=== PATIENT | female | born 1945 | race Caucasian/White ===

== ENCOUNTER 2017-08-28 10:35 | Inpatient (IN) | payer MEDICARE, OTHER, SELFPAY ==
[2017-08-20 10:20] VITALS: BP 146/55; PULSE 103; RESP 16; TEMP 36.4; O2SAT 96; BMI 39.1
[2017-08-20 11:23] LABS: Absolute Lymphocyte Count 2.33 X10^3/ul (0.83-4.51); Absolute Neutrophil Count 4.1 X10^3/uL (2.0-7.7); Basophil# 0.06 X10^3/uL; Basophil% 0.8 % (0-1); Eosinophil# 0.28 X10^3/uL; Eosinophils% 3.8 % (0-5); Hematocrit 34.3 % (37-47); Hemoglobin 10.8 g/dl (12.0-15.0); Lymphocyte # 2.33 X10^3/ul (4.0); Lymphocyte % 31.3 % (19-41); Mean Corp Hgb Conc 31.5 g/gl (32-36); Mean Corpuscular Hgb 24.8 pg (27.0-32.0); Mean Corpuscular Volume 78.7 fL (81-99); Mean Platelet Vol. 9.6 fl (6.2-12.0); Monocyte# 0.65 X10^3/uL; Monocyte% 8.7 % (0-10); Neutrophil # 4.11 X10^3/uL (2.7-7.7); Neutrophil % 55.3 % (47-70); Platelet Count 380 K/mm3 (150-450); RBC Distribution Width CV 16.9 % (11.6-14.6); RBC Distribution Width SD 47.5 fl (35.1-43.9); Red Blood Count 4.36 M/mm3 (4.2-5.4); White Blood Count 7.4 K/mm3 (4.4-11.0)
[2017-08-20 11:27] LABS: POSITIVE COUNT NO; POSITIVE DIFFERENTIAL NO; POSITIVE MORPHOLOGY NO
--- NOTE | 2017-08-20 11:42 | SDCEKG_ITS ---
Test Reason : Blood Pressure : / mmHG Vent. Rate : 092 BPM Atrial Rate : 092 BPM P-R Int : 166 ms QRS Dur : 072 ms QT Int : 362 ms P-R-T Axes : 055 018 078 degrees QTc Int : 447 ms Sinus rhythm with occasional Premature ventricular complexes and Premature atrial complexes Increased R/S ratio in V1, consider early transition or posterior infarct Abnormal ECG Confirmed by BIJU LIU ([id number]), auto electrician CHARLES TAMAYO ([id number]) on 08/26/2017 1:34:33 PM Referred By: Confirmed By:BIJU LIU
[2017-08-20 11:57] LABS: Anion Gap 10 (5-15); BUN 17 mg/dL (7-18); BUN/Creat Ratio 25.6 RATIO (10-20); Calcium,Total 9.3 mg/dL (8.5-10.1); Chloride 98 mmol/L (98-107); Creatinine, Serum 0.66 mg/dL (0.55-1.02); EST Glomerular Filtration Rate 94 mL/min (>60); Est Glom Filt Rate - Afr Amer 113 mL/min (>60); Estimated Creatinine Clearance 41.99 ml/min; Glucose 177 mg/dL (70-110); Potassium 4.3 mmol/L (3.5-5.1); Sodium Level 139 mmol/L (136-145)
[2017-08-28] VITALS (11 sets, daily range): BP systolic 97–149; BP diastolic 53–80; PULSE 80–96; RESP 16–18; TEMP 36.2–36.6; O2SAT 95–99; BMI 39.1
[2017-08-28] MEDS: Celecoxib 200 MG Capsule 400 MG PO (11:20)
[2017-08-28] MEDS: Acetaminophen 500 MG Tablet 1000 MG PO ×2 (11:20→22:55)
[2017-08-28] MEDS: oxyCODONE HCl Cr 10 MG Tablet PO (11:20)
[2017-08-28 11:30] LABS: Bedside Glucose 185 mg/dL (70-110)
[2017-08-28] MEDS: Lactated Ringers 1,000 ML 999 ML IV (11:35)
[2017-08-28] MEDS: Clindamycin 600 MG/50 ML BAG 100 MG IV (12:25)
--- NOTE | 2017-08-28 14:51 | RAD_ITS ---
STUDY: X-RAY - PELVIS AND LEFT HIP REASON FOR EXAM: Female, 71 years old. Postop left hip revision TECHNIQUE: Radiological exam, hip, unilateral, with pelvis when performed; 2 or 3 views. COMPARISON: Prior x-rays of the pelvis and left hip on May 24, 2017. FINDINGS: There is a non-specific bowel gas pattern. There is sclerosis of the bilateral sacroiliac joints consistent with osteoarthritis. Normal bilateral superior and inferior pubic rami. There are degenerative changes of the pubic symphysis with articular narrowing and sclerosis. Normal bilateral ischial tuberosities. The patient is status post revision arthroplasty of the left hip with a long femoral stem. Cerclage wires are noted proximally. The components are aligned anatomically. No post surgical complications are seen. Post surgical changes are noted in the soft tissues. The skin ramez have been removed The patient is status post prior arthroplasty of the right hip. The components are also aligned anatomically and no postsurgical complications are seen. RAD/Hip Min 2 Views (Portable) IMPRESSION: Status post left hip revision arthroplasty, uncomplicated. Status post old right hip arthroplasty, uncomplicated Electronically Signed: Abdelrahman Lantigua MD, FACR at 15:36 EST , Service support ,
[2017-08-28 15:31] LABS: Bedside Glucose 232 mg/dL (70-110)
--- NOTE | 2017-08-28 15:51 | PCM.OPRPT ---
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 Surgery/Procedure Performed:: Left hip femoral component revision Description of Surgical Findings:: Stable hip with equal leg lengths aluminum molder: Willie Lozano Type of Anesthesia:: Spinal Anesthesiologist: Marko Jane Special Medications: 600 mg clindamycin, 1 g TXA at incision, 1 g TXA closure, 10 mg Decadron, joint cocktail (5 mg Duramorph, 30 mL of 0.5% Ropivicaine, 1000 units of epinephrine, 30 mg of Toradol) Specimen's removed: 3 separate specimens were sent to microbiology Estimated Blood Loss (mL): 650 Fluids Replaced: 1400 mL crystalloid Description of Procedure: Findings: Adequate reduction with stability of the hip and equal leg lengths measured intraoperatively. Components used: 1. Ciara orthodoxy modular conical stem 1 55 x 15 2. Menlo duration modular cone body 19 mm +0 3. Ciara X3 polyethylene MDM liner, 38 mm 4. Menlo cobalt chromium 22.2 mm, 0 mm neck femoral head Brief history operative indications: 89-year-old female presented to my office after revision for ORIF periprosthetic fracture. She had subsidence of her metaphyseal fitting implant. The fracture was healing appropriately. When she started weightbearing she started to notice increased leg length discrepancy. Radiographs showed subsidence of the stem. Risks and benefits were discussed with the patient which included but were not limited to blood loss, DVTs, PEs, infection, neurovascular damage, and dislocation. In light of all this patient did agree to proceed with a revision total hip arthroplasty. Procedure: On the date of procedure the patient's L hip was marked in the preoperative area. Patient was then taken back to the operating room where anesthesia assumed control of the C-spine and airway and administered anesthetic. Patient was transferred to the operating table and placed in the lateral decubitus position with the affected hip up. The patient was secured in the bed with the lateral positioners and leg lengths were checked. The L lower extremity was then prepped out in a sterile fashion using chlorhexidine while the surgeon scrubbed. Upon reentering the room the L lower extremity was draped in the standard orthopedic fashion and the incision was marked. A timeout was called and everyone agreed upon the side, the site, the procedure be performed, antibiotics given, and patient's identity. At this time incision was made through skin, subcutaneous tissue, and fat down to fascia. The fascia was then incised and a Charley retractor was placed. The soft tissue was then cleared from the posterior lateral edge of the greater trochanter. Posterior structures were then taken down until we can identify the implant. It was clearly subsided at the time of exposure. Synovectomy was performed and synovium was sent for culture. Once the appropriate synovectomy was performed in the proximal femur was released were able to dislocate the hip. The femoral component was easily extracted. Once this is extracted curettes were used to remove the membrane from in the femoral canal. Part of this membrane was sent for culture. Acetabulum was then exposed and remainder of the synovectomy was performed. We then directed our attention to the femur. Femoral canal was reamed to 15 mm 155 mm conical stem. Once this was performed wound was copiously irrigated out with 6 L normal saline. Once we had irrigated out the wound a final conical implant was opened and impacted into place. We then reamed to a 19 mm cone body. Trial cone body was assembled and a neutral head was placed. Hip was reduced. Leg lengths appeared equal and hip was stable. Hip was then dislocated. Final cone body 19 mm was opened and Slater taper was engaged and impacted into place. Final screw was tightened into place. MDM head was assembled on the back table and MDM head was impacted into place after trunnion was appropriately cleaned. Hip was then reduced with the assistance of my physician drug safety assistant point traction and internal rotation. Once hip was reduced leg lengths appeared equal and the hip was stable at 90? at 45? internal rotation. The wound was then copiously irrigated with normal saline once more, and hemostasis was obtained. Closure was then done using #1 Vicryl to close the fascia. A 2-0 Vicryl interrupted sutures were used to close the subcutaneous skin. Skin ramez were used for final skin closure. A sterile dressing was placed. Patient was awakened by anesthesia and transferred to the [facility]. Patient was then transferred to the PACU for recovery. Postoperative plan: Patient will get 24 hours postop antibiotics. Patient will get in-house physical therapy and will be weight-bear as tolerated. Patient will follow up in office in 2 weeks for a wound check and x-rays. During the course of the procedure the physician drug safety assistant played a vital role. His intimate knowledge of my steps in the procedure aided in safe and expedient completion of the procedure. The PA played a vital rolls in positioning particularly in obtaining the appropriate decubitus position. The PA was also vital in the retraction of soft tissues during the exposure and especially the femoral work as this is a vital part of the procedure to prevent complications and fractures. The PA was also vital and protecting soft tissues during times of bony cuts and reaming. He also played a vital role in closure with my direct supervision. The PA was also important during reduction and dislocation of the joint and trials intraoperatively. Grafts/Implants Used: Menlo - Complications none - Admit VTE Documentation VTE Present on Admission: No VTE Mechan Device Prophylaxis: SCD's, Thigh High TESSA Hose VTE Pharm Prophylaxis ordered?: Yes
--- NOTE | 2017-08-28 16:00 | OP.PCM_ITS ---
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 Surgery/Procedure Performed:: Left hip femoral component revision Description of Surgical Findings:: Stable hip with equal leg lengths program administrator: Willie Lozano Type of Anesthesia:: Spinal Anesthesiologist: Marko Jane Special Medications: 600 mg clindamycin, 1 g TXA at incision, 1 g TXA closure, 10 mg Decadron, joint cocktail (5 mg Duramorph, 30 mL of 0.5% Ropivicaine, 1000 units of epinephrine, 30 mg of Toradol) Specimen's removed: 3 separate specimens were sent to microbiology Estimated Blood Loss (mL): 650 Fluids Replaced: 1400 mL crystalloid Description of Procedure: Findings: Adequate reduction with stability of the hip and equal leg lengths measured intraoperatively. Components used: 1. Ciara zoroastrian modular conical stem 1 55 x 15 2. Citra duration modular cone body 19 mm +0 3. Ciara X3 polyethylene MDM liner, 38 mm 4. Citra cobalt chromium 22.2 mm, 0 mm neck femoral head Brief history operative indications: 89-year-old female presented to my office after revision for ORIF periprosthetic fracture. She had subsidence of her metaphyseal fitting implant. The fracture was healing appropriately. When she started weightbearing she started to notice increased leg length discrepancy. Radiographs showed subsidence of the stem. Risks and benefits were discussed with the patient which included but were not limited to blood loss, DVTs, PEs, infection, neurovascular damage, and dislocation. In light of all this patient did agree to proceed with a revision total hip arthroplasty. Procedure: On the date of procedure the patient's L hip was marked in the preoperative area. Patient was then taken back to the operating room where anesthesia assumed control of the C-spine and airway and administered anesthetic. Patient was transferred to the operating table and placed in the lateral decubitus position with the affected hip up. The patient was secured in the bed with the lateral positioners and leg lengths were checked. The L lower extremity was then prepped out in a sterile fashion using chlorhexidine while the surgeon scrubbed. Upon reentering the room the L lower extremity was draped in the standard orthopedic fashion and the incision was marked. A timeout was called and everyone agreed upon the side, the site, the procedure be performed, antibiotics given, and patient's identity. At this time incision was made through skin, subcutaneous tissue, and fat down to fascia. The fascia was then incised and a Charley retractor was placed. The soft tissue was then cleared from the posterior lateral edge of the greater trochanter. Posterior structures were then taken down until we can identify the implant. It was clearly subsided at the time of exposure. Synovectomy was performed and synovium was sent for culture. Once the appropriate synovectomy was performed in the proximal femur was released were able to dislocate the hip. The femoral component was easily extracted. Once this is extracted curettes were used to remove the membrane from in the femoral canal. Part of this membrane was sent for culture. Acetabulum was then exposed and remainder of the synovectomy was performed. We then directed our attention to the femur. Femoral canal was reamed to 15 mm 155 mm conical stem. Once this was performed wound was copiously irrigated out with 6 L normal saline. Once we had irrigated out the wound a final conical implant was opened and impacted into place. We then reamed to a 19 mm cone body. Trial cone body was assembled and a neutral head was placed. Hip was reduced. Leg lengths appeared equal and hip was stable. Hip was then dislocated. Final cone body 19 mm was opened and Slater taper was engaged and impacted into place. Final screw was tightened into place. MDM head was assembled on the back table and MDM head was impacted into place after trunnion was appropriately cleaned. Hip was then reduced with the assistance of my physician butcher assistant point traction and internal rotation. Once hip was reduced leg lengths appeared equal and the hip was stable at 90? at 45? internal rotation. The wound was then copiously irrigated with normal saline once more, and hemostasis was obtained. Closure was then done using #1 Vicryl to close the fascia. A 2-0 Vicryl interrupted sutures were used to close the subcutaneous skin. Skin ramez were used for final skin closure. A sterile dressing was placed. Patient was awakened by anesthesia and transferred to the [facility]. Patient was then transferred to the PACU for recovery. Postoperative plan: Patient will get 24 hours postop antibiotics. Patient will get in-house physical therapy and will be weight-bear as tolerated. Patient will follow up in office in 2 weeks for a wound check and x-rays. During the course of the procedure the physician butcher assistant played a vital role. His intimate knowledge of my steps in the procedure aided in safe and expedient completion of the procedure. The PA played a vital rolls in positioning particularly in obtaining the appropriate decubitus position. The PA was also vital in the retraction of soft tissues during the exposure and especially the femoral work as this is a vital part of the procedure to prevent complications and fractures. The PA was also vital and protecting soft tissues during times of bony cuts and reaming. He also played a vital role in closure with my direct supervision. The PA was also important during reduction and dislocation of the joint and trials intraoperatively. Grafts/Implants Used: Citra - Complications none - Admit VTE Documentation VTE Present on Admission: No VTE Mechan Device Prophylaxis: SCD's, Thigh High TESSA Hose VTE Pharm Prophylaxis ordered?: Yes
[2017-08-28] MEDS: Lactated Ringers 1,000 ML 125 ML IV (16:15)
[2017-08-28] MEDS: Ferrous Sulfate 325 MG Tablet PO (17:23)
[2017-08-28] MEDS: Folic Acid 1 MG Tablet PO (17:23)
[2017-08-28] MEDS: Glucerna Shake 120 ML LIQUID PO (17:23)
[2017-08-28] MEDS: Aspirin 325 MG Tablet PO (17:23)
[2017-08-28] MEDS: Doxycycline 100 MG CAPSULE PO (22:55)
[2017-08-28] MEDS: Senna/Docusate Sodium 1 Tablet 2 TABLET PO (22:55)
[2017-08-28] MEDS: Isosorbide DN 10 MG Tablet PO (22:55)
[2017-08-28] MEDS: oxyCODONE 5 MG Tablet PO (23:00)
[2017-08-28 23:16] LABS: Bedside Glucose 303 mg/dL (70-110)
[2017-08-29] MEDS: Lactated Ringers 1,000 ML 125 ML IV (00:29)
[2017-08-29 02:12] VITALS: BP 129/73; PULSE 88; RESP 18; TEMP 36.2; O2SAT 95
[2017-08-29] MEDS: Acetaminophen 500 MG Tablet 1000 MG PO ×3 (06:19→21:43)
[2017-08-29] MEDS: Isosorbide DN 10 MG Tablet PO ×3 (06:20→21:43)
[2017-08-29 07:10] LABS: Hematocrit 26.3 % (37-47); Hemoglobin 8.2 g/dl (12.0-15.0); Mean Corp Hgb Conc 31.2 g/gl (32-36); Mean Corpuscular Hgb 24.4 pg (27.0-32.0); Mean Corpuscular Volume 78.3 fL (81-99); Mean Platelet Vol. 10.7 fl (6.2-12.0); Platelet Count 292 K/mm3 (150-450); RBC Distribution Width CV 17.1 % (11.6-14.6); RBC Distribution Width SD 46.7 fl (35.1-43.9); Red Blood Count 3.36 M/mm3 (4.2-5.4); White Blood Count 11.4 K/mm3 (4.4-11.0)
[2017-08-29 07:16] LABS: Bedside Glucose 236 mg/dL (70-110)
[2017-08-29 07:20] LABS: Scan Indicated on CBC? Y/N NO
[2017-08-29 07:21] LABS: Anion Gap 10 (5-15); BUN 18 mg/dL (7-18); BUN/Creat Ratio 27.6 RATIO (10-20); Calcium,Total 8.3 mg/dL (8.5-10.1); Chloride 101 mmol/L (98-107); Creatinine, Serum 0.65 mg/dL (0.55-1.02); EST Glomerular Filtration Rate 95 mL/min (>60); Est Glom Filt Rate - Afr Amer 115 mL/min (>60); Estimated Creatinine Clearance 41.99 ml/min; Glucose 253 mg/dL (70-110); Potassium 4.7 mmol/L (3.5-5.1); Sodium Level 137 mmol/L (136-145)
--- NOTE | 2017-08-29 07:36 | PN.ORTHO_ITS ---
Subjective: The patient was sitting in bed upon examination. Patient denies any chest pain , shortness of breath, dizziness, lightheadedness, nausea or vomiting, or calf pain. Pain is controlled on medications. No adverse overnight events. Overall patient is doing well, she is comfortable. Objective: Vital signs stable and afebrile. Patient is able to plantarflex and dorsiflex actively. Sensation is intact to light touch to saphenous, sural, superficial and deep peroneal, and tibial distribution. Dressing is clean dry and intact. Negative Homans bilaterally, negative signs and symptoms of DVT. - Physical Exam General: Alert, Oriented x3, Cooperative, No apparent distress Vital Signs Temp Pulse Resp BP Pulse Ox 97.1 F 88 18 129/73 95 08/29/17 02:12 08/29/17 02:12 08/29/17 02:12 08/29/17 02:12 08/29/17 02:12 Oxygen Delivery Method Room Air Weight: 97.1 kg Body Mass Index (BMI) 39.1 Finger Stick Blood Glucose 232 Intake and Output for Last 24 Hours 08/27/17 08/28/17 08/29/17 23:59 23:59 23:59 Intake Total 2053 1882 Output Total 0 2050 Balance 2054 -168 Microbiology Past 72 Hours 08/28/17 Unknown Gram Stain - Final Tissue - Hip 08/28/17 Unknown Gram Stain - Final Tissue - Hip 08/28/17 Unknown Gram Stain - Final Tissue - Hip Laboratory Tests Past 24 Hrs 08/29/17 08/29/17 05:57 05:57 WBC 11.4 H RBC 3.36 L Hgb 8.2 L Hct 26.3 L MCV 78.3 L MCH 24.4 L MCHC 31.2 L RDW 17.1 H RDW Differential 46.7 H Plt Count 292 MPV 10.7 Sodium 137 Potassium 4.7 Chloride 101 Carbon Dioxide 26.0 Anion Gap 10 BUN 18 Creatinine 0.65 Estim Creat Clear Calc 41.99 Est GFR (MDRD) Af Amer 115 Est GFR (MDRD) Non-Af 95 BUN/Creatinine Ratio 27.6 H Glucose 253 H Calcium 8.3 L POC Glucose 08/29/17 08/28/17 08/28/17 07:09 22:52 15:22 POC Glucose 236 H 303 H 232 H 08/28/17 11:09 POC Glucose 185 H Assessment/Plan 1. S/P left hip femoral component revision POD #1 2. Continue Pain Medications: Tylenol and OxyIR 3. DVT Prophylaxis: Aspirin 325 mg twice daily 4. PT/OT: Weightbearing as tolerated 5. H & H: 8.2/26.3, asymptomatic 6. Leukocytosis: Currently 11.4, afebrile. Patient did receive Decadron intraoperatively 7. Continue antibiotics while following cultures, currently on doxycycline. 8. Encouraged Incentive Spirometry 9. Disposition: Patient wishes to go to fourth floor rehab. Will have case management involved for proper placement.
[2017-08-29] MEDS: Pantoprazole Sodium 20 MG Tablet PO (07:59)
[2017-08-29] MEDS: Senna/Docusate Sodium 1 Tablet 2 TABLET PO ×2 (07:59→21:44)
[2017-08-29] MEDS: Aspirin 325 MG Tablet PO ×2 (07:59→17:06)
[2017-08-29] MEDS: Famotidine 20 MG Tablet PO (07:59)
[2017-08-29] MEDS: Ferrous Sulfate 325 MG Tablet PO ×2 (07:59→17:06)
[2017-08-29] MEDS: Doxycycline 100 MG CAPSULE PO ×2 (08:00→21:43)
[2017-08-29] MEDS: Folic Acid 1 MG Tablet PO ×2 (08:00→17:06)
[2017-08-29 08:07] VITALS: BP 130/77; PULSE 86; RESP 16; TEMP 36.8; O2SAT 99
[2017-08-29] MEDS: Glucerna Shake 120 ML LIQUID PO ×3 (08:07→17:11)
--- NOTE | 2017-08-29 08:49 | CASEMGMT ---
Addendum entered by Deisy Gill 08/29/17 15:35: Social Work Martha confirms that they can accept the pt tomorrow after 13:30. Face to face with pt to discuss discharge planning. Introduced self and role at [facility]. Pt confirms that she wants [facility] and went there following surgery in April. Inform that she has been approved and they anticipate accepting her tomorrow afternoon. Understanding expressed, and pt to be discharge 08/30. Plan: for rehabilitation. MATT Snyder Original Note: Social Work Updated by Kranthi SAMUEL, that pt is wanting to go to [facility] and it appears upon chart review that she did go to the [facility] in April of this year following an ortho surgery. Left vm with Martha on [facility] to place referral and will await determination from Martha. Will continue to follow and assist with discharge planning. MATT Snyder
--- NOTE | 2017-08-29 08:51 | PCM.DC.THR ---
Discharge Diet: 1800 Calorie Control Diet Discharge Activity: May Not Drive - while taking narcotic pain medications. May shower in (days): 1 - Turned dressing away from water Weight Bearing Status: Weight bearing as tolerated - Posterior hip precautions ?3 months Additional Activity Instructions:: Wear elastic stockings for 2 weeks. DO NOT use alcohol with narcotic pain medication. DO NOT make important decisions while taking narcotic medication. If you have problems with taking your medication (rash, itching, nausea, etc.) call the office at once. Call your doctor if your incision/area has: Increased Pain/ Swelling, Increased Redness, Foul Smelling Discharge Call your doctor if you observe: Fever of 101 or Higher Remove Dressing in (days):: 3 - Okay to remove on September 02, 2017 Additional Instructions: Follow-up per [facility] postop instructions Allergies/Adverse Reactions: Allergies Penicillins Allergy (Verified 05/12/17 14:36) Rash CAT SCAN DYE Allergy (Uncoded 05/12/17 14:36) Shortness of breath NON-PAPER TAPE Allergy (Uncoded 05/12/17 14:36) Unknown Medications to take at Discharge Insulin Detemir [Levemir FlexPen] 20 units SC DAILY 10/08/13 Metformin(XR) [Glucophage Xr] 1,000 mg PO DINNER 10/08/13 Omeprazole [Prilosec] 20 mg PO DAILY 10/08/13 Paroxetine HCl [Paxil] 20 mg PO DAILY 10/08/13 Isosorbide DN [Isordil] 10 mg PO TID 09/05/16 Insulin Aspart [Novolog Flexpen] 15 units SC DINNER #1 05/16/17 Insulin Detemir [Levemir FlexPen] 35 units SC QHS #0 05/16/17 Acetaminophen [Tylenol] 1,000 mg PO Q8 #90 tablet 08/29/17 Aspirin 325 mg PO BIDCM #30 tablet 08/29/17 Doxycycline 100 mg PO BID #10 capsule 08/29/17 Oxycodone [Oxyir] 5 - 10 mg PO Q4H PRN PRN #80 tablet 08/29/17 Senna/Docusate Sodium [Senokot-S] 2 tablet PO BID #20 tablet 08/29/17 The following prescriptions were given: Oxycodone [Oxyir] 5 - 10 mg PO Q4H PRN PRN #80 tablet PRN Reason: Pain Acetaminophen [Tylenol] 1,000 mg PO Q8 #90 tablet Aspirin 325 mg PO BIDCM #30 tablet Doxycycline 100 mg PO BID #10 capsule Senna/Docusate Sodium [Senokot-S] 2 tablet PO BID #20 tablet Primary Care Physician: Frederic Laurent DO [Primary Care Provider] - Please Follow Up With: Willie Lozano PA-C When: 09/11/17 @ 10:15 am
[2017-08-29] MEDS: oxyCODONE 5 MG Tablet PO ×3 (11:23→21:42)
[2017-08-29 11:26] VITALS: BP 129/48; PULSE 84; RESP 16; TEMP 36.7; O2SAT 100
[2017-08-29 11:41] LABS: Bedside Glucose 230 mg/dL (70-110)
[2017-08-29 16:07] VITALS: BP 135/57; PULSE 91; RESP 16; TEMP 36.7; O2SAT 99
[2017-08-29 16:36] LABS: Bedside Glucose 270 mg/dL (70-110)
[2017-08-29] MEDS: 0.9% NaCl Peripheral Flush Adult/Peds IV (21:54)
[2017-08-29 21:55] VITALS: BP 132/80; PULSE 92; RESP 18; TEMP 36.7; O2SAT 95
[2017-08-29 21:56] LABS: Bedside Glucose 151 mg/dL (70-110)
[2017-08-31 00:33] LABS: Bedside Glucose 66 mg/dL (70-110)
[2017-08-31 00:33] LABS: Bedside Glucose 204 mg/dL (70-110)
[2017-08-31 00:34] LABS: Bedside Glucose 145 mg/dL (70-110)
[2017-08-31 00:34] LABS: Bedside Glucose 191 mg/dL (70-110)
[2017-08-31 00:41] LABS: Bedside Glucose 68 mg/dL (70-110)
[2017-08-31 00:41] LABS: Bedside Glucose 84 mg/dL (70-110)
[2017-08-31 02:25] LABS: Hematocrit 25.7 % (37-47); Hemoglobin 7.8 g/dl (12.0-15.0); Mean Corp Hgb Conc 30.4 g/gl (32-36); Mean Corpuscular Hgb 23.8 pg (27.0-32.0); Mean Corpuscular Volume 78.4 fL (81-99); Platelet Count 303 K/mm3 (150-450); RBC Distribution Width CV 17.6 % (11.6-14.6); RBC Distribution Width SD 47.6 fl (35.1-43.9); Scan Indicated on CBC? Y/N NO
== END 2017-08-30 17:42 | DRG 468 ==
LOC: MS3 08-30 16:56
PROVIDERS: Admitting Provider Specialist; Family Provider Family Medicine; PCP Family Medicine; Visit Provider Specialist
DX: T84.031A Mechanical loosening of internal left hip prosthetic joint, initial encounter (principal); E66.9 Obesity, unspecified; E11.9 Type 2 diabetes mellitus without complications; Z68.39 Body mass index [BMI] 39.0-39.9, adult; K21.9 Gastro-esophageal reflux disease without esophagitis; Z79.4 Long term (current) use of insulin; I10 Essential (primary) hypertension; Z79.899 Other long term (current) drug therapy
CPT/HCPCS: 36415; 73502; 80048; 82962; 85025; 85027; 87015; 87070; 87075; 87077; 87081; 87116; 87186; 87205; 87206; 93005; 97110; 97116; 97150; 97162; 97165; 97530; 99251; J7120; A4216; G0463

== ENCOUNTER 2017-12-13 12:48 | Emergency (ER) | payer MEDICARE, OTHER, SELFPAY ==
[2017-12-13] VITALS (7 sets, daily range): BP systolic 136–179; BP diastolic 47–78; PULSE 74–87; RESP 15–18; TEMP 36.4; O2SAT 94–99; BMI 38.0
--- NOTE | 2017-12-13 13:04 | EKG12_ITS ---
Test Reason : CHEST PAIN Blood Pressure : / mmHG Vent. Rate : 076 BPM Atrial Rate : 076 BPM P-R Int : 172 ms QRS Dur : 084 ms QT Int : 374 ms P-R-T Axes : 059 028 049 degrees QTc Int : 420 ms Normal sinus rhythm Normal ECG Confirmed by BIJU LIU ([id number]), primer expeditor and drier CHARLES TAMAYO ([id number]) on 12/16/2017 1:32:49 PM Referred By: Confirmed By:BIJU LIU
--- NOTE | 2017-12-13 13:04 | RAD_ITS ---
STUDY: X-RAY CHEST REASON FOR EXAM: Female, 71 years old. Burning sensation of the chest. TECHNIQUE: AP and lateral views of the chest. COMPARISON: Comparison is made with prior study dated September 05, 2016. FINDINGS: EKG liquids are seen. The lungs are clear and expanded. There is no demonstrated pleural abnormality. Normal size heart. Normal mediastinum and joyce. Normal visualized pulmonary arteries. There is atherosclerotic tortuosity of the aortic arch and descending thoracic aorta. There are diffuse degenerative changes of the visualized thoracic spine. Normal visualized ribs, clavicles, and shoulders. There is no demonstrated abnormality of the visualized soft tissue structures of the upper abdomen. RAD/Chest PA and Lateral IMPRESSION: No acute abnormality is seen. Electronically Signed: Shubham Patel MD at 14:03 EDT Tel [phone], Service support ,
[2017-12-13 13:20] LABS: Absolute Lymphocyte Count 2.43 X10^3/ul (0.83-4.51); Absolute Neutrophil Count 3.7 X10^3/uL (2.0-7.7); Basophil# 0.03 X10^3/uL; Basophil% 0.4 % (0-1); Eosinophil# 0.17 X10^3/uL; Eosinophils% 2.5 % (0-5); Hematocrit 34.4 % (37-47); Hemoglobin 10.7 g/dl (12.0-15.0); Lymphocyte # 2.43 X10^3/ul (4.0); Lymphocyte % 36.1 % (19-41); Mean Corp Hgb Conc 31.1 g/gl (32-36); Mean Corpuscular Hgb 23.7 pg (27.0-32.0); Mean Corpuscular Volume 76.1 fL (81-99); Mean Platelet Vol. 10.7 fl (6.2-12.0); Monocyte# 0.45 X10^3/uL; Monocyte% 6.7 % (0-10); Neutrophil # 3.65 X10^3/uL (2.7-7.7); Neutrophil % 54.2 % (47-70); Platelet Count 289 K/mm3 (150-450); RBC Distribution Width CV 18.8 % (11.6-14.6); RBC Distribution Width SD 51.5 fl (35.1-43.9); Red Blood Count 4.52 M/mm3 (4.2-5.4); White Blood Count 6.7 K/mm3 (4.4-11.0)
[2017-12-13 13:21] LABS: POSITIVE COUNT NO; POSITIVE DIFFERENTIAL NO; POSITIVE MORPHOLOGY NO
[2017-12-13 13:27] LABS: Anion Gap 7 (5-15); BUN 17 mg/dL (7-18); BUN/Creat Ratio 22.8 RATIO (10-20); Calcium,Total 8.6 mg/dL (8.5-10.1); Chloride 101 mmol/L (98-107); Creatinine, Serum 0.74 mg/dL (0.55-1.02); EST Glomerular Filtration Rate 82 mL/min (>60); Est Glom Filt Rate - Afr Amer 99 mL/min (>60); Estimated Creatinine Clearance 43.92 ml/min; Glucose 176 mg/dL (74-106); Potassium 4.3 mmol/L (3.5-5.1); Sodium Level 138 mmol/L (136-145)
--- NOTE | 2017-12-13 16:05 | EKG12_ITS ---
Test Reason : REPEAT Blood Pressure : / mmHG Vent. Rate : 073 BPM Atrial Rate : 073 BPM P-R Int : 186 ms QRS Dur : 084 ms QT Int : 396 ms P-R-T Axes : 049 016 034 degrees QTc Int : 436 ms Normal sinus rhythm Normal ECG Confirmed by BIJU LIU ([id number]), makeup editor CHARLES TAMAYO ([id number]) on 12/16/2017 1:33:05 PM Referred By: Confirmed By:BIJU LUI
--- NOTE | 2017-12-13 17:12 | ED.VISSUMM ---
- ER Visit Summary Date of Service: 12/13/17 Chief Complaint: Chest burning with radiation to the right side of the neck History of Present Illness: The patient is a 71 F who has a past medical history of diabetes ?15 years presents with chest burning radiating through to her back and into the right side of her neck lasted 5 minutes. She took an aspirin. This episode occurred at 1145 and was associated with dyspnea. She has no other associated symptoms. She had recurrence of the burning sensation with radiation to the neck 15-30 minutes later. This episode lasted 5 minutes as well. She denies any fever, chills night sweats. Denies weight gain or weight loss. She denies any visual, ocular or auditory symptoms. Respiratory positive for dyspnea with out complaint of cough, dyspnea exertion, orthopnea or PND. She denies abdominal pain, nausea, vomiting or diarrhea. She denies dysuria, frequency urgency or hematuria. She denies myalgias arthralgias. She states the pain went through to her back intrascapular region. No rash. She denies headache, weakness, paresthesia, anesthesia or motor weakness. She denies problems with bruising easily. Past surgical history remarkable for hysterectomy, appendectomy and right and left total hip arthroplasty and total knee arthroplasty. Last surgical intervention was July 2017. Physical Examination: Vital signs are marked for an elevated blood pressure 179/76. Vitals are otherwise unremarkable. She is heavyset with a BMI of 38.1. Head is atraumatic normocephalic. Pupils are equal round reactive. Extraocular muscles are intact. TMs are pearly white with landmarks noted. Nares patent with no drainage. Posterior pharynx without erythema or exudate. Uvula is midline. There is no dysphonia or dysphasia. Trachea is midline. There is no stridor with auscultation of the neck. Heart is regular without murmur, gallop or rub. S1 and S2 are normal. Lungs are clear to auscultation with good movement of air bilaterally. There is no reproducible chest pain. Abdomen is soft nontender with negative Hills sign. Bowel sounds are present with no palpable or pulsatile mass. There is no abdominal bruit. Distal pulses were noted upper and lower extremity and 2+ and symmetric. Neuro exam is nonfocal. Test Results: EKG #1 reveals a sinus rhythm rate is 76 and normal. EKG #2 3 hours later is unchanged. Troponin #1 is less than 0.02 and troponin #2 is less than 0.02. Delta is 0. Electrode panel was marked for glucose of 176. Emergency Department Course and Treatment: After initial workup was undertaken to evaluate patient's chest discomfort Dr. Gutierrez was contacted. Plan was 3 hour repeat troponin. Since the repeat is negative and delta 0 he requested patient call next week to be seen next week. Treatment Plan: Cardiology follow-up as outpatient next week Disposition: Discharged home in stable condition Impression: Chest discomfort unknown etiology Hyperglycemia in known diabetic Elevated blood pressure in nonhypertensive patient This note was generated with [employer] dictation software. It may contain incorrect words, spelling, and punctuation that were not noted in review of the chart prior to signing ED Disposition - Plan for ED Patient: Disposition: Home or Assisted Living Chief Complaint: Chest Pain Instructions: ED Chest Pain Atypical Unkn Cause Referrals: Lisa Gamble [Primary Care Provider] - Richard Gutierrez MD [STAFF PHYSICIAN] - 5-7 Days
--- NOTE | 2017-12-13 17:39 | ED.RN ---
PT EDUCATED ON WRITTEN AND VERBAL DISCHARGE INSTRUCTIONS. PT VERBALIZES UNDERSTANDING AND DENIES FURTHER QUESTIONS. IV D.C AND COVERED WITH 2X2 GAUZE. MINIMAL BLEEDING NOTED. PT DRESSES SELF AND AMBULATES OUT OF DEPT WITHOUT ASSISTANCE FROM STAFF.
== END 2017-12-13 17:41 | disposition home or self-care (01) ==
PROVIDERS: Emergency Provider Emergency Medicine; Family Provider Family Medicine; PCP Family Medicine
DX: R07.89 Other chest pain (principal); E11.65 Type 2 diabetes mellitus with hyperglycemia; R03.0 Elevated blood-pressure reading, without diagnosis of hypertension; E66.9 Obesity, unspecified; Z68.38 Body mass index [BMI] 38.0-38.9, adult; Z79.82 Long term (current) use of aspirin; Z79.4 Long term (current) use of insulin; Z79.899 Other long term (current) drug therapy; Z96.643 Presence of artificial hip joint, bilateral; Z96.653 Presence of artificial knee joint, bilateral
CPT/HCPCS: 71046; 80048; 84484; 85025; 93005; 99284; A4216

== ENCOUNTER → 2018-01-22 13:18 | Outpatient (CLI) | payer MEDICARE, OTHER, SELFPAY | PROVIDERS: Family Provider Family Medicine; PCP Family Medicine; Visit Provider Nurse Practitioner Adult Health | DX: R82.90 Unspecified abnormal findings in urine (principal) | CPT/HCPCS: 87077; 87086; 87088; 87186 ==

== ENCOUNTER → 2018-04-21 07:46 | Outpatient (CLI) | payer MEDICARE, OTHER, SELFPAY ==
[2018-04-21 10:15] LABS: Absolute Lymphocyte Count 1.67 X10^3/ul (0.83-4.51); Absolute Neutrophil Count 2.7 X10^3/uL (2.0-7.7); Basophil# 0.03 X10^3/uL; Basophil% 0.6 % (0-1); Eosinophil# 0.23 X10^3/uL; Eosinophils% 4.5 % (0-5); Hematocrit 37.4 % (37-47); Hemoglobin 11.6 g/dl (12.0-15.0); Lymphocyte # 1.67 X10^3/ul (4.0); Lymphocyte % 32.8 % (19-41); Mean Corpuscular Hgb 25.4 pg (27.0-32.0); Mean Corpuscular Volume 81.8 fL (81-99); Mean Platelet Vol. 10.2 fl (6.2-12.0); Monocyte# 0.46 X10^3/uL; Neutrophil % 53.1 % (47-70); Platelet Count 275 K/mm3 (150-450); RBC Distribution Width CV 16.9 % (11.6-14.6); RBC Distribution Width SD 51.1 fl (35.1-43.9); Red Blood Count 4.57 M/mm3 (4.2-5.4); White Blood Count 5.1 K/mm3 (4.4-11.0)
[2018-04-21 10:17] LABS: POSITIVE COUNT NO; POSITIVE DIFFERENTIAL NO; POSITIVE MORPHOLOGY NO
[2018-04-21 10:36] LABS: Hemoglobin A1c 8.2 % (4.2-6.3)
[2018-04-21 10:57] LABS: AST(SGOT) 15 U/L (15-37); Alanine Aminotransfer ALT/SGPT 18 U/L (13-56); Albumin, Serum 3.7 g/dL (3.2-5.0); Alkaline Phosphatase 93 U/L (45-117); Bilirubin, Direct 0.15 mg/dL (0.00-0.30); Cholesterol 146 mg/dL (200); Globulin 3.4 g/dL (2.2-4.2); High Density Lipoprotein 57 mg/dL; Iron 40 ug/dL (50-170); Protein, Total 7.1 g/dL (6.4-8.2); Triglycerides 135 mg/dL; Very Low Density Lipoprotein 27 mg/dL (5-40)
[2018-04-22 11:36] LABS: HEPATITIS B SURFACE AG Negative (Negative); Hepatitis A AB, Total Negative (Negative); Hepatitis A IgM Antibody Negative (Negative); Hepatitis B Core AB IgM Negative (Negative); Hepatitis B Core Ab Total Negative (Negative); Hepatitis C Ab 0.1 s/co ratio (0.0-0.9)
[2018-04-22 14:03] LABS: Hep B Surface Antibodies Non Reactive (.)
== END ==
PROVIDERS: Family Provider Family Medicine; PCP Family Medicine; Visit Provider Physician Assistant Medical
DX: E11.9 Type 2 diabetes mellitus without complications (principal); D50.9 Iron deficiency anemia, unspecified; E78.5 Hyperlipidemia, unspecified; Z20.5 Contact with and (suspected) exposure to viral hepatitis; Z79.899 Other long term (current) drug therapy; Z79.4 Long term (current) use of insulin
CPT/HCPCS: 36415; 80061; 80076; 83036; 83540; 85025; 86704; 86705; 86706; 86708; 86709; 86803; 87340

== ENCOUNTER → 2018-07-07 15:43 | Outpatient (CLI) | payer MEDICARE, OTHER, SELFPAY ==
[2018-07-07 17:35] LABS: Absolute Lymphocyte Count 2.95 X10^3/ul (0.83-4.51); Absolute Neutrophil Count 3.8 X10^3/uL (2.0-7.7); Basophil# 0.05 X10^3/uL; Basophil% 0.6 % (0-1); Eosinophils% 3.9 % (0-5); Hematocrit 35.8 % (37-47); Hemoglobin 11.5 g/dl (12.0-15.0); Lymphocyte # 2.95 X10^3/ul (4.0); Lymphocyte % 38.2 % (19-41); Mean Corp Hgb Conc 32.1 g/gl (32-36); Mean Platelet Vol. 10.6 fl (6.2-12.0); Monocyte# 0.59 X10^3/uL; Monocyte% 7.6 % (0-10); Neutrophil # 3.82 X10^3/uL (2.7-7.7); Neutrophil % 49.6 % (47-70); Platelet Count 276 K/mm3 (150-450); RBC Distribution Width CV 14.9 % (11.6-14.6); RBC Distribution Width SD 43.9 fl (35.1-43.9); Red Blood Count 4.42 M/mm3 (4.2-5.4); White Blood Count 7.7 K/mm3 (4.4-11.0)
[2018-07-07 17:38] LABS: POSITIVE COUNT NO; POSITIVE DIFFERENTIAL NO; POSITIVE MORPHOLOGY NO
[2018-07-07 17:48] LABS: CRP 7.25 mg/L (0.0-3.0)
[2018-07-07 17:50] LABS: Erythrocyte Sedimentation Rate 49 mm/hr (0-30)
== END ==
PROVIDERS: Family Provider Family Medicine; PCP Family Medicine; Referring Provider Specialist; Visit Provider Specialist
DX: Z96.642 Presence of left artificial hip joint (principal)
CPT/HCPCS: 36415; 85025; 85652; 86140

== ENCOUNTER → 2018-07-14 07:26 | Outpatient (CLI) | payer MEDICARE, OTHER, SELFPAY ==
[2018-07-14 07:49] LABS: Absolute Lymphocyte Count 2.89 X10^3/ul (0.83-4.51); Absolute Neutrophil Count 4.6 X10^3/uL (2.0-7.7); Basophil# 0.06 X10^3/uL; Basophil% 0.7 % (0-1); Eosinophil# 0.07 X10^3/uL; Eosinophils% 0.9 % (0-5); Hematocrit 39.5 % (37-47); Hemoglobin 12.6 g/dl (12.0-15.0); Lymphocyte # 2.89 X10^3/ul (4.0); Lymphocyte % 35.2 % (19-41); Mean Corp Hgb Conc 31.9 g/gl (32-36); Mean Corpuscular Hgb 25.7 pg (27.0-32.0); Mean Corpuscular Volume 80.6 fL (81-99); Mean Platelet Vol. 10.1 fl (6.2-12.0); Monocyte# 0.58 X10^3/uL; Monocyte% 7.1 % (0-10); Neutrophil # 4.58 X10^3/uL (2.7-7.7); Neutrophil % 55.9 % (47-70); Platelet Count 344 K/mm3 (150-450); RBC Distribution Width CV 15.5 % (11.6-14.6); RBC Distribution Width SD 44.8 fl (35.1-43.9); White Blood Count 8.2 K/mm3 (4.4-11.0)
[2018-07-14 07:50] LABS: POSITIVE COUNT NO; POSITIVE DIFFERENTIAL NO; POSITIVE MORPHOLOGY NO
[2018-07-14 07:54] LABS: Erythrocyte Sedimentation Rate 22 mm/hr (0-30)
[2018-07-14 08:09] LABS: CRP < 2.90 mg/L (0.0-3.0)
--- NOTE | 2018-07-14 08:10 | RAD_ITS ---
CLINICAL HISTORY: Female, 72 years old. Chronic left hip pain. Hip replacement. PROCEDURE: ARTHROGRAM - LEFT HIP ASPIRATION. CONSENT: The procedure as well as benefits and possible complications including infection and bleeding branch point of the patient. Informed consent was obtained. FLUOROSCOPY TIME (if supplied): (35 seconds) minutes/seconds Injection Information: 5 cc of Isovue-300 Number of images obtained: 1 TECHNIQUE: (All elements of maximal sterile barrier technique followed, including US elements as applicable) The patient was in the supine position. The overlying skin was prepped and draped in the usual sterile fashion. Following local anesthetic application and under direct fluoroscopic guidance, a 22-gauge spinal needle was placed into the hip joint. 5 cc of Isovue-300 was injected. Following this, 3 cc of aspirate was obtained and sent to the laboratory for analysis. RAD/Inj/Asp Ladarius Jt Should/Hip/Knee IMPRESSION: Left hip arthrogram with aspiration of fluid. The patient tolerated the procedure well. Electronically Signed: Shubham Patel MD at 12:55 EDT Tel [phone], Service support ,
[2018-07-14 09:12] LABS: Body Fluid Polynuclear WBC # 0.001 10^3/uL; Body Fluid Total Cells Counted 0.001 10^3/ul (0.000-0.000)
[2018-07-14 09:31] LABS: Auto B Fluid Analyzer BKGD Ct COUNTS W/IN LIMITS (W/IN LIMITS)
[2018-07-14 09:32] LABS: Appearance/Body Fluid CLEAR; Body Fluid QC Type(s) BF3Q; Color/Body Fluid COLORLESS; Red Cell Count/Body Fluid < 0 /mm3; Source- Body Fluid OTHER; White Blood Count/Body Fluid 1 /mm3
[2018-07-15 12:21] LABS: Pathologist Comment/Body Fluid Reviewed
== END ==
PROVIDERS: Family Provider Family Medicine; PCP Family Medicine; Referring Provider Specialist; Visit Provider Specialist
DX: M25.552 Pain in left hip (principal); Z96.642 Presence of left artificial hip joint
CPT/HCPCS: 20610; 36415; 77002; 85025; 85652; 86140; 87015; 87070; 87075; 87101; 87116; 87205; 87206; 89050; Q9965

== ENCOUNTER → 2018-11-21 12:36 | Outpatient (CLI) | payer MEDICARE, OTHER, SELFPAY ==
--- NOTE | 2018-11-21 12:39 | BI_ITS ---
MAMMOGRAPHY - BILATERAL SCREENING REASON FOR EXAM: Female, 72 years old. Routine annual screening examination. PERTINENT HISTORY: Non-contributory. TECHNIQUE: Digital bilateral breast dylon (3D mammographic acquisition) in the CC and MLO projections. 2-D mediolateral oblique (MLO) and craniocaudad (CC) views of both breasts were obtained. CAD: Full Field Digital Mammography with Computer Added Detection was performed. COMPARISON: Comparison is made with prior study dated October 15, 2017 and April 24, 2016. FINDINGS: Breast Composition: There are scattered areas of fibroglandular density. There are no dominant masses or suspicious calcifications. Stable asymmetry of breast tissue with more breast tissue is seen in the anterior upper lateral portion of the right breast as compared to the left side. No other significant abnormalities are identified. There has been no significant change since the prior study. BI/SCREENING MAMM (CAD), BILAT IMPRESSION: Stable bilateral screening mammogram. Yearly follow-up mammogram recommended. (A) ASSESSMENT CATEGORY: BIRADS Category 2: Benign. A letter regarding these results will be sent to the patient by the facility within 30 days. Approximately 10% of breast cancers are not detected by mammography. A normal mammogram should not delay biopsy of a clinically suspicious abnormality. [id number] Electronically Signed: Shubham Patel MD at 14:20 EST , Service support ,
== END ==
PROVIDERS: Family Provider Family Medicine; PCP Family Medicine; Referring Provider Family Medicine; Visit Provider Family Medicine
DX: Z12.31 Encounter for screening mammogram for malignant neoplasm of breast (principal)
CPT/HCPCS: 77063; 77067

== ENCOUNTER → 2019-03-18 07:13 | Outpatient (CLI) | payer MEDICARE, OTHER, SELFPAY ==
[2018-08-05 14:06] VITALS: BMI 40.4
[2019-03-18 10:07] LABS: Absolute Lymphocyte Count 2.04 X10^3/ul (0.83-4.51); Absolute Neutrophil Count 3.1 X10^3/uL (2.0-7.7); Basophil# 0.04 X10^3/uL; Basophil% 0.7 % (0-1); Eosinophil# 0.33 X10^3/uL; Eosinophils% 5.5 % (0-5); Hematocrit 36.5 % (37-47); Hemoglobin 11.5 g/dl (12.0-15.0); Lymphocyte # 2.04 X10^3/ul (4.0); Lymphocyte % 34.1 % (19-41); Mean Corp Hgb Conc 31.5 g/gl (32-36); Mean Corpuscular Hgb 25.4 pg (27.0-32.0); Mean Corpuscular Volume 80.6 fL (81-99); Mean Platelet Vol. 10.1 fl (6.2-12.0); Monocyte# 0.45 X10^3/uL; Monocyte% 7.5 % (0-10); Neutrophil # 3.11 X10^3/uL (2.7-7.7); POSITIVE COUNT NO; POSITIVE DIFFERENTIAL NO; POSITIVE MORPHOLOGY NO; Platelet Count 314 K/mm3 (150-450); RBC Distribution Width CV 15.3 % (11.6-14.6); RBC Distribution Width SD 45.3 fl (35.1-43.9); Red Blood Count 4.53 M/mm3 (4.2-5.4)
[2019-03-18 10:27] LABS: Microalbumin,Random Urine 8.2 mg/L (NO RANGE EST.); Microalbumin:Creatinine Ratio 9.5 mg/g CRE (<30 mg/g CRE)
[2019-03-18 10:29] LABS: Hemoglobin A1c 8.6 % (4.2-6.3)
[2019-03-18 10:35] LABS: AST(SGOT) 17 U/L (15-37); Alanine Aminotransfer ALT/SGPT 18 U/L (13-56); Albumin, Serum 3.7 g/dL (3.2-5.0); Alkaline Phosphatase 80 U/L (45-117); Anion Gap 8 (5-15); BUN 16 mg/dL (7-18); BUN/Creat Ratio 21.9 RATIO (10-20); Calcium,Total 8.8 mg/dL (8.5-10.1); Chloride 103 mmol/L (98-107); Cholesterol 150 mg/dL (200); Creatinine, Serum 0.73 mg/dL (0.55-1.02); EST Glomerular Filtration Rate 84 mL/min (>60); Est Glom Filt Rate - Afr Amer 101 mL/min (>60); Globulin 3.7 g/dL (2.2-4.2); Glucose 92 mg/dL (74-106); High Density Lipoprotein 63 mg/dL; Potassium 4.3 mmol/L (3.5-5.1); Protein, Total 7.4 g/dL (6.4-8.2); Sodium Level 143 mmol/L (136-145); Triglycerides 147 mg/dL; Very Low Density Lipoprotein 29 mg/dL (5-40)
== END ==
PROVIDERS: Family Provider Family Medicine; PCP Family Medicine; Referring Provider Family Medicine; Visit Provider Family Medicine
DX: E11.9 Type 2 diabetes mellitus without complications (principal); D50.9 Iron deficiency anemia, unspecified; E78.5 Hyperlipidemia, unspecified; Z79.4 Long term (current) use of insulin; Z51.81 Encounter for therapeutic drug level monitoring
CPT/HCPCS: 36415; 80053; 80061; 82043; 82570; 83036; 85025

== ENCOUNTER → 2019-05-25 06:07 | Outpatient (CLI) | payer MEDICARE, OTHER, SELFPAY ==
[2019-05-19 08:30] VITALS: BMI 39.4
--- NOTE | 2019-05-25 11:22 | STRESSREP_ITS ---
Stress Test Report Exercise myocardial perfusion stress test. 73-year-old lady with a history of chest pain. Stress protocol: Resting EKG demonstrates normal sinus rhythm with a rate of 75 bpm normal intervals are noted resting blood pressure 122/72 mmHg. The patient exercised according to regular Liban protocol for total duration of 4 minutes and 13 sec onds the maximum heart rate attained was 129 bpm which was 86% of maximum predicted heart rate the maximum workload was 6 metabolic equivalents. Patient maintained sinus rhythm throughout the recording with occasional premature ventricular complexes noted. At rest there were no ST or T wave changes noted suggest ischemia occasional premature ventricular complexes were noted at peak exercise nonspecific ST-T wave changes were noted. Shortness of breath was noted the test was terminated due to fatigue. No clinical angina was noted. The resting blood pressure was 122/72 with a final blood pressure 138/84. Maximum BP was 198/92 mmHg. Myocardial perfusion protocol. 14.2 mCi of technetium 99m sestamibi was injected at rest. The patient exercised according to regular Liban protocol for 4 minutes and 13 seconds. At peak exercise 44.6 mCi of technetium 99m sestamibi was injected stress images were obtained stress and rest images were reconstructed and compared in the short axis vertical long horizontal long axis. Gated images were also obtained per Perfusion SPECT analysis: Review of the stress images demonstrate minimal amount of reduction noted in the mid to distal anterior wall and the stressing images with mild improvement on the resting images. The above may be suggestive of a mild amount of anterior ischemia. The low exercise workload could affect interpretation of the above. Gated SPECT analysis: The gated ejection fraction is 67%. Conclusion: Exercise myocardial perfusion stress test with probable mild anterior ischemia. Moderate functional capacity noted. Preserved ejection fraction.
== END ==
PROVIDERS: Family Provider Family Medicine; PCP Family Medicine; Referring Provider Internal Medicine Cardiovascular Disease; Visit Provider Internal Medicine Cardiovascular Disease
DX: I25.10 Atherosclerotic heart disease of native coronary artery without angina pectoris (principal); I10 Essential (primary) hypertension; R93.1 Abnormal findings on diagnostic imaging of heart and coronary circulation
CPT/HCPCS: 78452; 93017; A9500; A4216

== ENCOUNTER 2019-05-26 06:39 | Day surgery (SDC) | payer MEDICARE, OTHER, SELFPAY ==
[2019-05-19 08:30] VITALS: BMI 39.4
[2019-05-25 13:33] LABS: Absolute Lymphocyte Count 2.43 X10^3/uL (0.83-4.51); Absolute Neutrophil Count 3.7 X10^3/uL (2.0-7.7); Basophil# 0.07 X10^3/uL; Eosinophil# 0.29 X10^3/uL; Eosinophils% 4.2 % (0-5); Hematocrit 36.8 % (37-47); Hemoglobin 11.6 g/dL (12.0-15.0); Lymphocyte # 2.43 X10^3/ul (4.0); Lymphocyte % 34.9 % (19-41); Mean Corp Hgb Conc 31.5 g/dL (32-36); Mean Corpuscular Volume 82.3 fL (81-99); Mean Platelet Vol. 10.1 fl (6.2-12.0); Monocyte% 7.2 % (0-10); NRBC Flagged by Analyzer 0 % (0-5); Neutrophil # 3.65 X10^3/uL (2.7-7.7); Neutrophil % 52.4 % (47-70); Platelet Count 334 K/mm3 (150-450); RBC Distribution Width CV 15.2 % (11.6-14.6); Red Blood Count 4.47 M/mm3 (4.2-5.4)
[2019-05-25 13:53] LABS: Anion Gap 7 (5-15); BUN 19 mg/dL (7-18); BUN/Creat Ratio 24.6 RATIO (10-20); Calcium,Total 9.3 mg/dL (8.5-10.1); Chloride 103 mmol/L (98-107); Creatinine, Serum 0.77 mg/dL (0.55-1.02); EST Glomerular Filtration Rate 78 mL/min (>60); Est Glom Filt Rate - Afr Amer 95 mL/min (>60); Glucose 129 mg/dL (74-106); Potassium 4.4 mmol/L (3.5-5.1); Sodium Level 138 mmol/L (136-145)
[2019-05-26] VITALS (33 sets, daily range): BP systolic 111–180; BP diastolic 33–94; PULSE 76–126; RESP 14–25; TEMP 36.6–36.8; O2SAT 91–97; BMI 39.3; BMI 38.9
--- NOTE | 2019-05-26 07:25 | PCM.HP.BLA ---
History and Physical Date of Admission: 05/26/19 ADDENDUM by MAGALY Alex on 05/25/19 at 1459 Addendum entered and electronically signed by MAGALY Fuentes 05/25/19 14:59: Patient underwent a nuclear stress test on 05/25/2019 that showed probable mild anterior ischemia. Because of this, she will proceed with a heart catheterization with Dr. Gutierrez on 05/26/2019. HPI History of Present Illness Surgical H&P: Yes 05/25/19 1459<Electronically signed by Arslan MCKENZIE> Date Arslan Alex cc: Willy Alex DO ~* Signed HPI HPI History of Present Illness Details: TONI EMERSON, is a 73 F who presents to the office today for a follow-up visit. She is a lady with a history of minimal coronary artery disease, hypertension, hyperlipidemia. She returns for a visit following an abnormal calcium score. She apparently was asymptomatic and sedated as part of the promotion. You do remember she underwent a cardiac catheterization in 2011 and at that time it demonstrated left main coronary artery which is under graphically normal, left circumflex artery with mild diffuse disease, left anterior descending artery with 30 to 40% stenosis in the left anterior descending artery mid segment and a third diagonal with a focal 70% stenosis in the right coronary artery which was diffusely diseased. It appears that the calcium score at this time had a higher Agatston score of 1600 in the right coronary artery. The total Agatston score was over 2600. She denies any chest pain or shortness breath or paroxysmal nocturnal dyspnea or pedal edema she has had no neck arm or jaw discomfort to suggest angina. She has been compliant with all her medications. Her physical exam today demonstrates clear lung conrad regular rate and rhythm and no pedal edema. Intake Vital Signs: See EMR Intake Visit Reasons: left heart catheterization Allergies atorvastatin [From Lipitor] Allergy (Verified 05/19/19 08:31) myalgias Penicillins Allergy (Verified 05/19/19 08:31) Rash pravastatin Allergy (Verified 05/19/19 08:31) myalgias CAT SCAN DYE Allergy (Uncoded 05/19/19 08:31) Shortness of breath NON-PAPER TAPE Allergy (Uncoded 05/19/19 08:31) Unknown Medications Paroxetine [Paxil] 30 mg PO DAILY 10/08/13 [History Confirmed 05/19/19] metFORMIN (XR) [Glucophage Xr] 1,000 mg PO DINNER 10/08/13 [History Confirmed 05/19/19] Isosorbide DN [Isordil] 10 mg PO TID 09/05/16 [History Confirmed 05/19/19] Aspirin [Aspirin, Baby] 81 mg PO DAILY 12/13/17 [History Confirmed 05/19/19] Benazepril HCl [Lotensin] 20 mg PO DAILY 12/13/17 [History Confirmed 05/19/19] Omeprazole 20 mg PO DAILY 12/13/17 [History Confirmed 05/19/19] Rosuvastatin Calcium [Crestor] 5 mg PO QHS 12/13/17 [History Confirmed 05/19/19] acetaminophen 500 mg tablet 1,000 mg PO Q8 PRN 12/18/17 [History Confirmed 05/19/19] insulin detemir (U-100) 100 unit/mL (3 mL) subcutaneous pen 40 unit SC BREAKFAST ml 05/19/19 [History Confirmed 05/19/19] insulin detemir (U-100) 100 unit/mL (3 mL) subcutaneous pen 48 unit SC QHS ml 05/19/19 [History Confirmed 05/19/19] [facility] Medical History Atherosclerosis of coronary artery of [place] heart without angina pectoris (Chronic) Essential (primary) hypertension (Chronic) Hyperlipidemia (Chronic) GERD (gastroesophageal reflux disease) (Chronic) Obesity (Chronic) Type 2 diabetes mellitus (Chronic) Upper GI bleed (Resolved) Surgical History H/O total hip arthroplasty (Resolved) History of bilateral hip replacements (Resolved) History of hysterectomy (Resolved) History of laminectomy (Resolved) History of left heart catheterization (Resolved 12/07/11) History of total bilateral knee replacement (Resolved) Hx of appendectomy (Resolved) Family History Father COPD (chronic obstructive pulmonary disease) Myocardial infarction Mother Diabetes CAD (coronary artery disease) Hx CABG Alzheimers disease CVA (cerebral vascular accident) Brother H/O angioplasty Diabetes Brother CVA (cerebral vascular accident) Son Diabetes Social History (Updated 05/19/19 @ 09:17 by Richard Gutierrez MD) Smoking Status: Never smoker alcohol intake: never substance use type: does not use diet: diabetic caffeine: Yes Type: coffee Number of servings: 3 what type of physical activity do you participate in: other details: PT frequency: 3-4 times per week duration: 30-45 minutes/day seatbelt use: always do you feel safe at home: Yes ROS Const Const: Negative for fatigue, weakness, headache(s), frequent falls, difficulty sleeping or excessive sweating Eyes Eyes: Negative for loss of peripheral vision, transient loss of vision, blurry vision, double vision or tunnel vision ENT ENT: Negative for headache(s), dizziness, Nosebleed/epistaxis or balance problems Cardio Chest Pain: No Palpitations: No Edema: None Muscle aches with walking: None Resp Respiratory: Negative for SOB with activity, SOB at rest, SOB orthopnea\SOB lying down, Cough or paroxysmal nocturnal dyspnea GI GI: Negative nausea, vomiting, heartburn or black,tarry stools : Negative for hematuria Musc Musc: Negative for muscle aches/ myalgia, muscle weakness, joint pain or balance problems Skin Skin: Negative non-healing lesions, rash or unusual bruising Neuro Neuro: Negative for dizziness, lightheadedness, near syncope, syncope, orthostatic symptoms, frequent falls, headache(s), weakness, blurry vision, double vision or lack of coordination Jose Carlos Hematologic/Lymphatic: Negative for easy bleeding or easy bruising Endo Endo: Negative for fatigue, excessive sweating or increased thirst/drinking Psych Psych: Negative for anxiety or depression Allergy Allergy/Immunology: Negative for hives, Negative for rash Cardiology Exam Const Appearance: cooperative, healthy appearing, no acute distress, well developed and well groomed Nutritional Appearance: average body habitus and well nourished Orientation: alert, awake and oriented x3 Head Head: normal to inspection, normocephalic and atraumatic Ears: hearing grossly normal bilaterally and external ears normal Nose: external nose normal, nares normal, nasal mucous membranes and turbinates normal, septum normal, no nasal discharge Face and Sinus: face symmetric Mouth: oral mucosae normal, tongue normal, oropharynx normal and moist mucous membranes Teeth and gingiva: dentition normal Throat: posterior oropharynx normal, tonsils normal and uvula midline Eyes General: appearance normal, both eyes and all related structures Eyelids: eyelids normal Conjunctivae: conjunctivae normal Pupils: PERRL, normal by confrontation and accommodation normal EOM: EOM intact bilaterally Neck Neck: normal visual inspection, trachea midline and no JVD JVD: +5 Carotids: normal carotid upstroke and bounding pulses Chest Chest inspection: normal inspection of the chest, symmetric chest movement and normal respiratory effort Auscultation: Bilateral: Clear to Auscultation Cardio Palpation: normal PMI Rate: regular rate Rhythm: regular rhythm Heart sounds: S1 normal, S2 normal and normal, physiologic split S2; negative rub, gallop or murmur GI GI: normal to inspection, soft, no hepatosplenomegaly and bowel sounds present Neuro General: alert, awake, oriented x3, gait normal, moves all extremities and no focal sensory deficit Skin Skin: no rashes or lesions noted Extremities Pulses: Normal: Right Femoral Pulse, Left Femoral Pulse, Right Dorsalis Pedis Pulse, Left Dorsalis Pedis Pulse, Right Posterior Tibial Pulse, Left Posterior Tibial Pulse, Right Radial Pulse, Left Radial Pulse Lower Extremity Edema: None: Bilateral Musculoskel Musculoskeletal: No joint tenderness Psych Psychological: normal affect Assessment & Plan 1. Abnormal Heart Score CT R93.1 Plan She does have an abnormal coronary calcium score. With her risk factors of hypertension hyperlipidemia diabetes mellitus as well as her mild coronary disease noted 7 years ago my recommendation would be for us to undergo an exercise myocardial perfusion stress test. She underwent this test on 05/25/2019 that showed probable mild anterior ischemia. Because of this result, she will proceed with a heart catheterization for further evaluation and recommendation. 2. Essential (primary) hypertension I10 Plan She does have a history of hypertension which is otherwise been under good control. I would recommend we not make any changes at this particular time. 3. Mixed hyperlipidemia E78.2 Plan She does have a history of hyperlipidemia. Her most recent lipid profile was actually excellent with a total cholesterol 150, LDL 58, HDL of 63. Liver function tests are within normal limits. Her EKG performed today also demonstrates sinus rhythm with no acute changes. Thank you for allowing me to participate in the care of your patient. Please don't hesitate to call if any issues arise 05/19/19 0917<Electronically signed by Richard Gutierrez MD> Date Richard Gutierrez MD
--- NOTE | 2019-05-26 08:49 | CL.D_ITS ---
Patient Name: TONI EMERSON Study Date: 05/26/2019 Performing: Richard Gutierrez MD Ht: 62.99 inches 160 cm : 1945 Wt: 220 lbs 99.79 kg Age: 73 Gender: female BSA: 2.01 PROCEDURE(S) PERFORMED CB62-VNL/COR/LV [id number] W OR WO PTCA, SINGLE CORONARY ARTERY CLINICAL PROFILE AND INDICATIONS Indications: Suspected CAD Heart Failure: None Stress/Imaging Date: 05/25/2019 CAD Presentations: No Sxs, no angina. Other: abn ca score CONCLUSIONS Severe disease noted of the proximal left anterior descending artery in the proximal second circumfl ex artery.Calcification noted of the right coronary artery RECOMMENDATIONS Referred for immediate PCI DESCRIPTION OF PROCEDURE The patient arrived to the procedure lab. The risks and benefits of the procedure as well as a full d escription of our services here and current unavailability of surgical backup were fully explained to the patient and/or their significant other prior to the catheterization. The Timeout was completed, verifying the correct patient and procedure. The patient's procedural site was prepped and draped in the usual fashion. Local anesthetic was given subcutaneously to right radial region with Lidocaine 2% . Local anesthetic was given subcutaneously to right groin region with Lidocaine 2%. Using a modified Seldinger technique, arterial access was obtained via the right radial artery, a 6Fr sheath was inse rted., arterial access was obtained via the right femoral artery, a 5Fr sheath was inserted. Left Co ronary Artery selective angiography was performed in multiple views using a 5 Fr. JL4 catheter. Right Coronary Artery selective angiography was then performed in multiple views using a 5 Fr. 3DRC (Aman) catheter. Left Ventriculography was performed in PALMER projection using a 5 Fr. Pigtail catheter. LV to AO pullback pressures were then recorded.The arterial Radial sheath was pulled and a TR Band was applied for hemostasis CORONARY ANGIOGRAPHY DOMINANCE: Right Dominant LEFT HEART ASSESSMENT Left Ventricular Ejection Fraction: by LV Gram 45 % Anterior Hypokinesis - Moderate Depressed Left Ventricular systolic function LEFT MAIN: Mild calcification LEFT ANTERIOR DESCENDING ARTERY: PROX LAD: 75 % Stenosis MID LAD: 70 % Stenosis CIRCUMFLEX ARTERY: OM 2: Proximal - 85 % Stenosis RIGHT CORONARY ARTERY: Severe calcification Mild luminal irregularities COMPLICATIONS PROCEDURE MEDICATIONS Fentanyl 50 mcg IV Oxygen: 2 L/min via nasal cannula Baby Aspirin (81mg) 1 Tabs PO 05/26/2019 07:09:34 Benadryl 50 mg IV @ 05/26/2019 07:46:21 Heparin diluted in 23cc Heparinized saline. Patient given 10cc IA of this solution. 05/26/2019 08:06: 54 Heparin 5000 unit(s) IV 05/26/2019 08:47:34 Solu-medrol 125 mg IV 05/26/2019 07:46:28 Verapamil 2.5mg, Ntg 100mcgs, 2000 units of Heparin diluted in 23cc Heparinized saline. Patient give n 10cc IA of this solution. 05/26/2019 08:06:54 SUMMARY OF HEMODYNAMIC DATA Time AIR REST ECG 07:15:06 AO 133/84 (108) SA 08:10:00 AO 164/81 (112) 08:25:12 LV 192/13, 18 08:31:09 LV 205/15, 21 08:31:16 LV 197/0, 17 08:32:25 LV 205/1, 22 08:32:31 LVp 204/5, 20 08:32:37 AOp 187/77 (115) 08:32:42 Signed By Richard Gutierrez MD On 05/26/2019 08:49:01 Richard Gutierrez MD
--- NOTE | 2019-05-26 10:00 | EKG12_ITS ---
Test Reason : POST PCI Blood Pressure : / mmHG Vent. Rate : 103 BPM Atrial Rate : 104 BPM P-R Int : 202 ms QRS Dur : 084 ms QT Int : 368 ms P-R-T Axes : 048 029 059 degrees QTc Int : 482 ms Sinus tachycardia Otherwise normal ECG When compared with ECG of 13-DEC-2017 16:04, No significant change was found Confirmed by BIJU LIU [id number]), newspaper copy editor VIKTOR ANTHONY ([id number]) on 06/08/2019 3:06:30 PM Referred By: Richard Gutierrez Confirmed By:BIJU LIU
--- NOTE | 2019-05-26 10:02 | CL.I_ITS ---
Patient Name: TONI EMERSON Study Date: 05/26/2019 Performing: Juana Slaughter MD Ht: 62.99 inches 160 cm : 1945 Wt: 220 lbs 99.79 kg Age: 73 Gender: female BSA: 2.01 PROCEDURE(S) PERFORMED [id number] W OR WO PTCA, SINGLE CORONARY ARTERY [id number] W OR WO PTCA, SINGLE CORONARY ARTERY CLINICAL PROFILE AND CO-MORBIDITIES Indications: Suspected CAD Heart Failure: None Stress/Imaging Date: 05/25/2019 CAD Presentations: No Sxs, no angina. Other: abn ca score CONCLUSIONS Successful PCI with Drug eluting stent and PTCA to the OM1 and LAD RECOMMENDATIONS Follow up with Dr. Matt Summers for at least 12 months Risk factor modification DESCRIPTION OF PROCEDURE The patient arrived to the procedure lab. The risks and benefits of the procedure as well as a full d escription of our services here and current unavailability of surgical backup were fully explained to the patient and/or their significant other prior to the catheterization. The Timeout was completed, verifying the correct patient and procedure. The patient's procedural site was prepped and draped in the usual fashion. Local anesthetic was given subcutaneously to right radial region with Lidocaine 2% . Local anesthetic was given subcutaneously to right groin region with Lidocaine 2% Using a modified Seldinger technique,arterial access was obtained via the right radial artery, a 6Fr sheath was insert ed., arterial access was obtained via the right femoral artery, a 5Fr sheath was inserted. Left Coron leticia Artery selective angiography was performed in multiple views using a 5 Fr. JL4 catheter. Right Co ronary Artery selective angiography was then performed in multiple views using a 5 Fr. 3DRC (Aman) catheter. Left Ventriculography was performed in PALMER projection using a 5 Fr. Pigtail catheter. LV to AO pullback pressures were then recorded. Arterial sheath was exchanged for a 6 Fr Sheath. XB 3.5 Guide catheter was inserted and engaged i nto the LCA. BMW [place] Guide wire was advanced to the 1st OM. Emerge 2.0 x 15 Balloon catheter wa s inserted. Balloon catheter was advanced across lesion in the first obtuse marginal, proximal. PTCA balloon inflated at 8 atms for 26 secs. Angiogram performed post balloon dilatation. Elunir 2.5 x 17 Drug Eluting stent was inserted. Drug Eluting stent was advanced across the lesion in the first obtus e marginal, proximal. Angiogram performed pre stent deployment. NC Emerge 2.5 x 12 Balloon catheter w as inserted. Balloon catheter was advanced across lesion in the first obtuse marginal, proximal. Guid e wire was repositioned to the LAD Emerge 2.5 x 20 Balloon catheter was inserted. Balloon catheter wa s advanced across lesion in the LAD, mid. Angiogram performed pre balloon dilatation. PTCA balloon in flated at 8 atms for 10 secs. PTCA balloon inflated at 12 atms for 32 secs. Angiogram performed post balloon dilatation. Synergy 2.5 x 38 Drug Eluting stent was inserted. Drug Eluting alyssa nt was advanced across the lesion in the LAD, mid. Angiogram performed pre stent deployment. Angiogra m performed post stent deployment. The arterial Radial sheath was pulled and a TR Band was applied for hemostasis. The arterial sheath was sutured in place and capped INTERVENTION INFORMATION LESION SITE: 1st OM (Proximal) Lesion Complexity: High/C, chronic total occlusion: No, lesion at bifurcation: No, thrombus present: No, lesion length: 14 mm, culprit lesion: Yes, Previously treated lesion: No, In-stent restenosis: No Pre Stenosis: 85 % Pre intervention MORENA flow: 3 PROCEDURE: Drug Eluting Stent with pre and post dilatation Post Stenosis: 0 % Post intervention MORENA flow: 3 Lesion Devices: Cordis 6 Fr XB3.5 100cm Guide Catheter [place] .014 BMW [place] Straight 190cm Ar Sci EMERGE MR 2.00x15 BALLOON Cardinal Elunir EMELYN RX 2.5x17 Ar Sci NC EMERGE MR 2.50x12 BALLOON LESION SITE: LAD (Mid) Lesion Complexity: High/C, chronic total occlusion: No, lesion at bifurcation: No, thrombus present: No, lesion length: 35 mm, culprit lesion: Yes Pre Stenosis: 80 % Pre intervention MORENA flow: 3 PROCEDURE: Drug Eluting Stent with pre dilatation. The stent covered both the stenotic lesions in the LAD. Post Stenosis: 0 % Post intervention MORENA flow: 3 Lesion Devices: Cordis 6 Fr XB3.5 100cm Guide Catheter [place] .014 [employer] [place] Straight 190cm Ar Sci EMERGE MR 2.50x20 BALLOON Ar Sci Synergy MR EMELYN 2.50x38 COMPLICATIONS No Complications PROCEDURE MEDICATIONS Fentanyl 50 mcg IV Versed 1 mg IV Oxygen: 2 L/min via nasal cannula Baby Aspirin (81mg) 1 Tabs PO 05/26/2019 07:09:34 Benadryl 50 mg IV 05/26/2019 07:46:21 Brilinta 180 mg PO @ 05/26/2019 09:31:13 Heparin diluted in 23cc Heparinized saline. Patient given 10cc IA of this solution. 05/26/2019 08:06: 54 Heparin 5000 unit(s) IV 05/26/2019 08:47:34 Solu-medrol 125 mg IV 05/26/2019 07:46:28 Verapamil 2.5mg, Ntg 100mcgs, 2000 units of Heparin diluted in 23cc Heparinized saline. Patient give n 10cc IA of this solution. 05/26/2019 08:06:54 SUMMARY OF HEMODYNAMIC DATA Time AIR REST ECG 07:15:06 AO 133/84 (108) SA 08:10:00 AO 164/81 (112) 08:25:12 LV 192/13, 18 08:31:09 LV 205/15, 21 08:31:16 LV 197/0, 17 08:32:25 LV 205/1, 22 08:32:31 LVp 204/5, 20 08:32:37 AOp 187/77 (115) 08:32:42 RM AIR REST 08:48:49 Signed By Juana Slaughter MD On 05/26/2019 10:01:47 Juana Slaughter MD
--- NOTE | 2019-05-26 10:48 | CRPHASE1 ---
Patient Communication PHII Cardiac Rehab Discussed with Patient:: Yes Guide to Cardiac Rehab Given to Patient:: Yes Cardiac Rehab Facility Choice List Given to Patient:: Yes - [facility] Choice Program [facility] CR PHII:: Communication Given to CR, Refer to [facility] Choice Program Other:: With permission faxed order and referral information Veterinary Medicine Scientist:: Emma Slaughter DR. PCP:: Lisa Gamble Refer Phase II Cardiac Rehab:: Yes Risk Factors/Lifestyle Smoking Status: Never smoker Hx Hypertension: Yes Hx Diabetes Mellitus Type 2: Yes Hx Metabolic Disorders: Yes Hx Dyslipidemia: Yes Hx Obesity: Yes Height: 5 ft 3 in Weight:: 220 lb BMI: 38.9 Post-Menopausal: Yes ETOH: No Caffeine: Yes Substance Abuse: No Risk Factor for Sedentary Lifestyle: Moderate Risk - MOBILITY HAS BEEN A RECENT ISSUE WITH HIP, STATES IS GETTING BETTER Family History: Family History (Last Reviewed 05/19/19 @ 09:12 by Richard Gutierrez MD) Father COPD (chronic obstructive pulmonary disease) Myocardial infarction Mother Diabetes CAD (coronary artery disease) Alzheimers disease CVA (cerebral vascular accident) Brother H/O angioplasty Diabetes Brother CVA (cerebral vascular accident) Son Diabetes Phase I Education Given On:: [place], Nutrition, Antiplatelet medication, CHF, Smoking cessation, Diabetes - Type I, Diabetes - Type II Issues Affecting Care:: None Knowledge of Condition:: Yes Hospital Course Presenting Symptoms:: NONE Medical/Surgical History WV:: No Angina:: No CAD:: Yes Cardiomyopathy:: No Valve Disease/Replacement:: No Pulmonary:: No COPD:: No Asthma:: No Diabetes Type II:: Yes Hypertension:: Yes Dyslipidemia:: Yes Arrhythmias:: No PE:: No DVT:: No PVD:: No PAD:: No Arthritis:: Yes GERD:: Yes Cancer:: No Renal:: No Thyroid:: No Depression:: Yes Anxiety:: Yes - ON PAXIL CABG: No PTCA:: Yes - PCI WITH STENT X2 ICD:: No Pacemaker:: No Orthopedic:: Yes - HIP Discharge/Home/Social Eval Discharge Disposition: Home Marital Status: Cardiac Rehabilitation Info Cardiac Rehabilitation Program Information: Cardiac Rehabilitation is important for patients like you who are recovering from a heart problem. Cardiac rehabilitation programs are recognized as integral to the continued care of the patient with coronary heart disease. The cardiac rehabilitation program is designed to optimize a patient's physical, psychological, and social functioning. Health assisted living care manager work in cardiac rehabilitation programs and assist you with getting the treatments you need to get stronger and healthier - like exercise, healthy eating habits, and medications. Cardiac rehabilitation has been show to help people with heart problems live longer and have better life enjoyment than people who do not go to cardiac rehabilitation. Please contact the Cardiac Rehabilitation Program at [facility] at in two weeks if you have not heard from them.
--- NOTE | 2019-05-26 10:54 | CRPH1.INSTRU ---
General Education CAD and cardiac anatomy and function:: Not instructed Explanation of diagnoses and procedures:: Not instructed Sign/Symptoms of MN:: Not instructed Antiplatelet therapy: Patient communicates acknowledgment, Family communicates acknowledgment Proper use of NTG-SL: Patient communicates acknowledgment Emergency procedures and activation of EMS: Patient communicates acknowledgment Compliance of all prescribed medications: Not instructed Smoking Patient Nicotine/Smoking Risk Factors Are:: Non-smoker Dyslipidemia Dyslipidemia Response Code:: Not instructed Overweight/Obesity Patient Overweight/Obesity Risk Factors Are:: Obesity - > or = 30 Recommendations Include:: Weight loss of 5-10%, Reduced calorie diet, Exercise 5-7 times/week Overweight/Obesity:: Not instructed Hypertension Recommendations Include:: Maintain BP <130/85, BP <130/80 if diabetic, DASH dietary guidelines, Decrease/maintain normal body weight, Moderation of ETOH Hypertension:: Not instructed Heart Disease Patient Heart Disease Risk Factors Are:: Family history of heart disease < 65 years old Recommendations Include:: Educated family members of their risk, Educated family members of importance of prevention of heart disease Heart Disease Response Code:: Patient communicates acknowledgment, Needs reinforcement Diabetes Recommendations Include:: Maintain fasting blood sugars 70-110 md/dL, Maintain HgbA1c of 6% or less, Monitor blood sugar as prescribed, Diabetic dietary guidelines, Decrease/maintain body weight Diabetes:: Needs reinforcement Metabolic Syndrome Recommendations Include:: Does not meet criteria, Reinforce compliance to risk factor modifications, Patient is diabetic, Encouraged follow-up with Primary Care Physician Metabolic Syndrome Response Code:: Not instructed Sedentary Recommendations Include:: Aerobic exercise 5-7 times/week for 20-30 minutes continuously, Benefits of regular exercise, Discussed home walking program, Monitored Outpatient Cardiac Rehab Sedentary Response Code:: Not instructed Stress Recommendations Include:: Identification of stressors, and assessment of coping skills, Stress management techniques Stress Response Code:: Not instructed
[2019-05-26 12:10] LABS: ACT Activated Clotting Time 153 sec (74-137)
[2019-05-26] MEDS: Isosorbide DN 10 MG Tablet PO ×2 (13:48→21:41)
[2019-05-26] MEDS: 0.9% NaCl Peripheral Flush Adult/Peds IV ×2 (13:49→16:51)
[2019-05-26] MEDS: PARoxetine 10 MG Tablet 30 MG PO (13:50)
--- NOTE | 2019-05-26 13:56 | NURSING ---
medicated with blood pressure medication if stays elevated >160 despite med will contact physician
[2019-05-26] MEDS: Metoprolol Tartrate 50 MG Tablet PO (16:51)
[2019-05-26] MEDS: Acetaminophen 325 MG Tablet 650 MG PO (16:51)
--- NOTE | 2019-05-26 17:16 | NURSING ---
Dr. Gutierrez aware of elevated BP gave 50 mg PO metoprolol
[2019-05-26] MEDS: Rosuvastatin Calcium 5 MG Tablet PO (21:41)
[2019-05-26] MEDS: TICAGRELOR 90 MG TABLET PO (21:41)
[2019-05-26 21:51] LABS: Bedside Glucose 385 mg/dL (70-110)
[2019-05-27] VITALS (11 sets, daily range): BP systolic 94–150; BP diastolic 41–96; PULSE 76–84; RESP 14–20; TEMP 36.6–36.8; O2SAT 91–97
[2019-05-27 04:32] LABS: Hematocrit 35.2 % (37-47); Hemoglobin 11.1 g/dL (12.0-15.0); Mean Corp Hgb Conc 31.5 g/dL (32-36); Mean Corpuscular Hgb 25.4 pg (27.0-32.0); Mean Corpuscular Volume 80.5 fL (81-99); Mean Platelet Vol. 10.3 fl (6.2-12.0); Platelet Count 356 K/mm3 (150-450); RBC Distribution Width CV 15.6 % (11.6-14.6); RBC Distribution Width SD 45.6 fl (35.1-43.9); Red Blood Count 4.37 M/mm3 (4.2-5.4); White Blood Count 11.1 K/mm3 (4.4-11.0)
[2019-05-27 04:50] LABS: AST(SGOT) 15 U/L (15-37); Alanine Aminotransfer ALT/SGPT 17 U/L (13-56); Albumin, Serum 3.4 g/dL (3.2-5.0); Alkaline Phosphatase 83 U/L (45-117); Anion Gap 8 (5-15); BUN 24 mg/dL (7-18); BUN/Creat Ratio 25.9 RATIO (10-20); Calcium,Total 8.7 mg/dL (8.5-10.1); Chloride 103 mmol/L (98-107); Creatinine, Serum 0.93 mg/dL (0.55-1.02); EST Glomerular Filtration Rate 63 mL/min (>60); Est Glom Filt Rate - Afr Amer 77 mL/min (>60); Globulin 3.5 g/dL (2.2-4.2); Glucose 277 mg/dL (74-106); Potassium 4.3 mmol/L (3.5-5.1); Protein, Total 6.9 g/dL (6.4-8.2); Sodium Level 139 mmol/L (136-145)
[2019-05-27] MEDS: Isosorbide DN 10 MG Tablet PO (04:59)
[2019-05-27 06:26] LABS: Bedside Glucose 256 mg/dL (70-110)
--- NOTE | 2019-05-27 07:56 | PN.CARD_ITS ---
Subjectve: Patient seen and evaluated. Appears to be doing remarkably well. No complaints. Objective: Vital Signs Temp Pulse Resp BP Pulse Ox 98.2 F 80 14 145/60 H 93 05/27/19 04:00 05/27/19 07:00 05/27/19 07:00 05/27/19 07:00 05/27/19 07:00 Oxygen Delivery Method Room Air Weight: 218 lb 4.122 oz Body Mass Index (BMI) 39.3 Finger Stick Blood Glucose 232 Intake and Output for Last 24 Hours 05/25/19 05/26/19 05/27/19 23:59 23:59 23:59 Intake Total 1280 / 1280 240 / 240 Output Total 250 / 250 Balance 1030 / 1030 240 / 240 General: Awake, Alert, Oriented x 3 HEENT: PERRL, EOMI, Sclera Non Icteric Neck: Supple, Good ROM, No Lymph Node Enlargement Lungs: Clear to auscultation Cardiovascular: Regular Rhythm, Normal S1, Normal S2, No Murmurs, No Rubs, No Gallops Vascular: No Carotid Bruits, Normal Femoral Pulses, Normal Radial Pulses, Normal Dorsalis Pedal Pulse, Normal Posterior Tibial Pulses Abdomen: Bowel Sounds Present, Soft, Non Tender, No HSM, No Organomegaly Extremities: No Cyanosis, No Clubbing, No edema Musculoskeletal: No Erythema Skin: No Rashes Lymphatic: No Lymph Node Enlargement Neurological: No Focal Motor or Sensory Deficit Psych/Mental Status: Appropriate 05/27/19 04:10: WBC 11.1 H, RBC 4.37, Hgb 11.1 L, Hct 35.2 L, MCV 80.5 L, MCH 25.4 L, MCHC 31.5 L, Plt Count 356, MPV 10.3 05/27/19 04:10: Sodium 139, Potassium 4.3, Chloride 103, Carbon Dioxide 28.0, Anion Gap 8, BUN 24 H, Creatinine 0.93, Est GFR (MDRD) Af Amer 77, Est GFR (MDRD) Non-Af 63, BUN/Creatinine Ratio 25.9 H, Glucose 277 H, Calcium 8.7, Total Bilirubin 0.60 Rhythm: EKG: ECHO: Stress Test: Cardiac Cath: PCI: CT Surgery: Holter monitor: EPS: PPM: CXR: Chest CT Scan: Medical Necessity - Tobacco Use Smoking Status: Never smoker Assessment/Plan 1. Coronary artery disease * Patient is status post angioplasty and stenting of the left circumflex artery in the left anterior descending artery with drug-eluting stents. Patient tolerated the procedure well. No EKG changes overnight and no hematoma noted. We will also start the patient on metoprolol 50 mg twice daily Continue ticagrelor 90 mg twice daily Continue aspirin. Will discharge for outpatient follow-up. 2 prescriptions called to outpatient pharmacy.
--- NOTE | 2019-05-27 08:02 | DCINST_ITS ---
Discharge Diet: Low fat/ Low Cholesterol Discharge Activity: Return to Normal Activity Call your doctor if your incision/area has: Increased Pain/ Swelling, Increased Redness, Foul Smelling Discharge, Swelling at the incision site Call your doctor if you observe: Fever of 101 or Higher Additional Dressing/Incision Instructions:: Keep the dressing (bandage) on until the next morning. You may then shower, but do not take a tub bath for 5 days after your test. It is normal to have some tenderness and discomfort at the puncture site. Sometimes bruising also occurs. However, if pain, numbness, or coldness occurs below the puncture site (in your leg, toes, arms or fingers) call your doctor at once. You may have a small, marble sized knot at the puncture site. This is normal. Do not rub it. It will go away in 4-6 weeks. Bleeding can occur from the area where the puncture was done. Blood may spurt or drip from the site. If blood spurts, apply pressure right away to stop bleeding and call 911. Although rare, bleeding into the tissue (hematoma) can also occur. If this happens, a large, firm area goose egg under the skin will appear. If any of these occur, lie down as flat as you can and have someone apply firm pressure to the cath site with a gauze pad or a clean washcloth for 10-15 minutes. Call 911 or go to the Emergency Department. Allergies/Adverse Reactions: Allergies atorvastatin [From Lipitor] Allergy (Verified 05/19/19 08:31) myalgias Penicillins Allergy (Verified 05/19/19 08:31) Rash pravastatin Allergy (Verified 05/19/19 08:31) myalgias CAT SCAN DYE Allergy (Uncoded 05/19/19 08:31) Shortness of breath NON-PAPER TAPE Allergy (Uncoded 05/19/19 08:31) Unknown Medications to take at Discharge Paroxetine [Paxil] 30 mg PO DAILY 10/08/13 metFORMIN (XR) [Glucophage Xr] 1,000 mg PO DINNER 10/08/13 Isosorbide DN [Isordil] 10 mg PO TID 09/05/16 Aspirin [Aspirin, Baby] 81 mg PO DAILY 12/13/17 Benazepril HCl [Lotensin] 20 mg PO DAILY 12/13/17 Omeprazole 20 mg PO DAILY 12/13/17 Rosuvastatin Calcium [Crestor] 5 mg PO QHS 12/13/17 acetaminophen 500 mg tablet 1,000 mg PO Q8 PRN 12/18/17 insulin detemir (U-100) 100 unit/mL (3 mL) subcutaneous pen 40 unit SC BREAKFAST ml 05/19/19 insulin detemir (U-100) 100 unit/mL (3 mL) subcutaneous pen 48 unit SC QHS ml 05/19/19 Metoprolol Tartrate [Lopressor (beta harinder)] 50 mg PO BID #60 tab 05/27/19 Ticagrelor [Brilinta] 90 mg PO BID #60 tab 05/27/19 The following prescriptions were given: Ticagrelor [Brilinta] 90 mg PO BID #60 tab Transmission Status: Pending to [address] Metoprolol Tartrate [Lopressor (beta harinder)] 50 mg PO BID #60 tab Transmission Status: Pending to [address] Orders to be completed after discharge: Phase II, Outpatient Cardiac Rehab Location: None Selected Primary Care Physician: Lisa Gamble DO [Primary Care Provider] - Test Results: Test results from this visit will be discussed in further detail at your follow- up appointment, if applicable. Please Follow Up With: heart group will call with appt Proposed Discharge Date: 05/27/19 Cardiac Rehabilitation Info Cardiac Rehabilitation Program Information: Cardiac Rehabilitation is important for patients like you who are recovering from a heart problem. Cardiac rehabilitation programs are recognized as integral to the continued care of the patient with coronary heart disease. The cardiac rehabilitation program is designed to optimize a patient's physical, psychological, and social functioning. Health acute care clinical nurse specialist work in cardiac rehabilitation programs and assist you with getting the rosette atments you need to get stronger and healthier - like exercise, healthy eating habits, and medications. Cardiac rehabilitation has been show to help people with heart problems live longer and have better life enjoyment than people who do not go to cardiac rehabilitation. Please contact the Cardiac Rehabilitation Program at [facility] at in two weeks if you have not heard from them.
[2019-05-27] MEDS: Aspirin 81 MG TAB.CHEW PO (08:33)
[2019-05-27 08:45] LABS: Bedside Glucose 232 mg/dL (70-110)
--- NOTE | 2019-05-27 09:35 | CASEMGMT ---
RN CM Note: Pt'd discharged this am. RN CM called to Brendan Tsai copay $18. Per nursing, pt did not have dc'd needs. Rosalva ALICIAN RN ACM
--- NOTE | 2019-05-27 10:00 | EKG12_ITS ---
Test Reason : AM EKG Blood Pressure : / mmHG Vent. Rate : 077 BPM Atrial Rate : 077 BPM P-R Int : 206 ms QRS Dur : 086 ms QT Int : 400 ms P-R-T Axes : 056 031 094 degrees QTc Int : 452 ms Sinus rhythm with occasional Premature ventricular complexes Otherwise normal ECG When compared with ECG of 26-MAY-2019 10:04, MANUAL COMPARISON REQUIRED, DATA IS UNCONFIRMED Confirmed by BIJU LIU ([id number]), restaurant expeditor VIKTOR ANTHONY ([id number]) on 06/08/2019 3:06:47 PM Referred By: Richard Gutierrez Confirmed By:BIJU LIU
== END 2019-05-27 09:10 | disposition home or self-care (01) ==
LOC: CLSP 06:40 → ICU 12:33
PROVIDERS: Specialist; Family Provider Family Medicine; PCP Family Medicine; Referring Provider Internal Medicine Cardiovascular Disease; Visit Provider Internal Medicine Cardiovascular Disease
DX: I25.10 Atherosclerotic heart disease of native coronary artery without angina pectoris (principal); E11.9 Type 2 diabetes mellitus without complications; I10 Essential (primary) hypertension; E78.2 Mixed hyperlipidemia; K21.9 Gastro-esophageal reflux disease without esophagitis; E66.9 Obesity, unspecified; Z79.02 Long term (current) use of antithrombotics/antiplatelets; Z79.82 Long term (current) use of aspirin; Z79.4 Long term (current) use of insulin; Z79.899 Other long term (current) drug therapy; Z88.0 Allergy status to penicillin; R94.39 Abnormal result of other cardiovascular function study; R93.1 Abnormal findings on diagnostic imaging of heart and coronary circulation; Z96.643 Presence of artificial hip joint, bilateral; Z96.653 Presence of artificial knee joint, bilateral; Z95.5 Presence of coronary angioplasty implant and graft
CPT/HCPCS: 36415; 80048; 80053; 82962; 85025; 85027; 85347; 92928; 93005; 93458; 99152; 99153; J7040; Q9967; A4216; C1725; C1769; C1874; C1887; C1894; C9600; J1327

== ENCOUNTER → 2019-06-02 08:50 | Outpatient (CLI) | payer MEDICARE, OTHER, SELFPAY ==
[2019-05-26 10:24] VITALS: BMI 39.3
[2019-05-26 10:53] VITALS: BMI 38.9
--- NOTE | 2019-06-02 09:25 | PCM.CR.HP2 ---
CR - History & Physical - General Arrival date:: 06/02/19 Arrival time:: 08:50 Date of Referral:: 05/26/19 Date of CR Evaluation:: 06/02/19 Referring Physician: DR PERRY - History of Present Cardiac Event Onset Date: Enter Onset Date of cardiac illnesses in Comment field below Current stable Angina Pectoris:: No Acute Myocardial Infarction within 12 months:: No Coronary Artery Bypass Graft:: No Heart valve replacement or repair:: No PTCA or coronary stenting:: Yes - STENT X2 Heart or Heart-Lung Transplant:: No Type of Symptoms:: NONE Interventions with present event:: STENTS X2 Were there any complications?: NONE - Medications Home Medications: Ambulatory Orders Medication Instructions Recorded Paroxetine [Paxil] 30 mg PO DAILY 10/08/13 metFORMIN (XR) [Glucophage Xr] 1,000 mg PO DINNER 10/08/13 Isosorbide DN [Isordil] 10 mg PO TID 09/05/16 Aspirin [Aspirin, Baby] 81 mg PO DAILY 12/13/17 Benazepril HCl [Lotensin] 20 mg PO DAILY 12/13/17 Omeprazole 20 mg PO DAILY 12/13/17 Rosuvastatin Calcium [Crestor] 5 mg PO QHS 12/13/17 acetaminophen 500 mg tablet 1,000 mg PO Q8 PRN 12/18/17 insulin detemir (U-100) 100 40 unit SC BREAKFAST ml 05/19/19 unit/mL (3 mL) subcutaneous pen insulin detemir (U-100) 100 48 unit SC QHS ml 05/19/19 unit/mL (3 mL) subcutaneous pen Metoprolol Tartrate [Lopressor 50 mg PO BID #60 tab 05/27/19 (beta harinder)] Ticagrelor [Brilinta] 90 mg PO BID #60 tab 05/27/19 - Allergies Allergies/Adverse Reactions: Allergies atorvastatin [From Lipitor] Allergy (Verified 05/19/19 08:31) myalgias Penicillins Allergy (Verified 05/19/19 08:31) Rash pravastatin Allergy (Verified 05/19/19 08:31) myalgias CAT SCAN DYE Allergy (Uncoded 05/19/19 08:31) Shortness of breath NON-PAPER TAPE Allergy (Uncoded 05/19/19 08:31) Unknown - Sleep Disorder Evaluation Hx of Sleep Apnea: No Do you snore loudly (louder than talking or can be heard through closed doors)?: No Do you often feel tired/ fatigued/ sleepy during daytime?: No Has anyone observed you stop breathing during sleep?: No History of Hypertension (for STOP score): Yes STOP Results: Negative Advanced Directives - Advanced Directives Power of Delivery Consultant: Yes - ON RECORD HERE Living Will: Yes - ON RECORD HERE Advance Directives Information Provided: Yes - ON RECORD HERE Advance Directives on File: Yes - HERE AT [facility] DNR Order?:: Yes Past Medical History - Past Medical Illness Medical History: Past Medical History (Last Updated 05/26/19 @ 18:36 by Padma Morris) Atherosclerosis of coronary artery of [place] heart without angina pectoris (Chronic) I25.10 PCI-EMELYN-OM1 w/ 2.5 x 17 mm Elunir Stent and EMELYN-Mid-LAD w/ Synery 2.50 x 38 mm Synergy MR 05/26/2019 Essential (primary) hypertension (Chronic) I10 Hyperlipidemia (Chronic) E78.5 GERD (gastroesophageal reflux disease) K21.9 Obesity E66.9 Type 2 diabetes mellitus E11.9 Abnormal nuclear stress test (Resolved) R94.39 Upper GI bleed K92.2 - Past Surgical History Surgical History: Past Surgical History (Last Updated 05/26/19 @ 18:36 by Padma Morris) History of coronary artery stent placement (Resolved) Onset Date: 05/26/19 Z95.5 PCI-EMELYN-OM1 w/ 2.5 x 17 mm Elunir Stent and EMELYN-Mid-LAD w/ Synery 2.50 x 38 mm Synergy MR 05/26/2019 H/O total hip arthroplasty Z96.649 History of bilateral hip replacements Z96.643 left- 05/14/17 Right- 09/2013 History of hysterectomy Z90.710 History of laminectomy Z98.890 lower back 11/2015 History of left heart catheterization Onset Date: 12/07/11 Z98.890 2003,2011 History of total bilateral knee replacement Z96.653 right- 11/2003 left- 05/2008 Hx of appendectomy Z90.49 Surgical History: appendectomy, hysterectomy, total hip arthroplasty, total knee arthroplasty, - - Family History Summary Family History: Family History (Last Reviewed 05/19/19 @ 09:12 by Richard Perry MD) Father COPD (chronic obstructive pulmonary disease) Myocardial infarction Mother Diabetes CAD (coronary artery disease) Hx CABG Alzheimers disease CVA (cerebral vascular accident) Brother H/O angioplasty Diabetes Brother CVA (cerebral vascular accident) Son Diabetes Social History - Smoking History Smoking Status: Never smoker - Alcohol Use Alcohol Usage: No - Substance Abuse Hx Substance Use: No - Occupation Occupation (List type of work in comments):: Retired - Hobbies, Recreation, Social Activities Hobbies: Reading Recreational Activities: I am able to engage in a few activities Social Environment - Status Marital Status: - Current Living Arrangements Living Environment:: Spouse - Children How many children do you have?: 2 Do any of your children live nearby?: Yes - Safety Do you feel safe in your surroundings?: Yes - Assistance Do you need any assistance at home?: NONE Review of Systems - Review of Systems Hints: Right click = Denies (Slash). Left click = Reports ([place]) Review of Present Symptoms: Reports: Shortness of Breath at Rest, Fatigue, Appetite - Normal, Appetite - Special Diet - SUPPOSEDLY DIABETIC, Sleep - Normal - LAST MONTH OR SO HAVE BEEN HAVING TROUBLE STAYING ASLEEP. Denies: Shortness of Breath with Exertion, PVD, Operative Discomfort, Angina, Wound Healing, Dizziness/Lightheadedness, Heart Arrhythmia/Irregularities - Pain Is Patient Pain Free?: Yes Risk Factor Assessment - Chief Complaint Chief Complaint: CURRENT PCI PT WHO PRESENTS FOR CR FOR INITIAL EVAL - Vital Signs Temperature: 98.6 F Respiratory Rate: 16 Pulse Ox: 96 Blood Pressure: 88/48 Nailbeds:: PINK - Pulse Pulse Rate: 69 Pulse Rhythm: Regular - Hypertension On medication(s)?: YES Blood Pressure Sitting - Left Arm: 88/48 - Stress Stress: Long-standing, Home/Family - Blood Cholesterol/Lipids Total Cholesterol (mg/dL) Goal = less than 200 mg/dL: 150 HDL Cholesterol (mg/dL) Goal = less than 40 mg/dL: 63 LDL Cholesterol (mg/dL) Goal = less than 70 mg/dL: 58 Triglycerides (mg/dL) Goal = less than 150 mg/dL: 147 - Diabetes Diabetic History: Type II Nutrition Referral for Diabetes: No - Obesity Height: 5 ft 3 in Weight:: 223 lb Weight in Pounds: 223.0 lbs Weight Source: Estimated by Patient Body Mass Index (BMI): 39.4 Nutritional Referral for Obesity: No - PT DECLINED WHY WT PROGRAM AND STATES HAS ALREADY ATTEND DIAB CLINIC - Physical Inactivity Physical Inactivity: None - Risk Stratification Risk Guidelines: Lowest Risk: Risk Factor for Smoking, Risk Factor for Dyslipidemia, Risk Factor for Hypertension, Moderate Risk: Risk Factor for Diabetes - AIC 8.2, Risk Factor for Obesity, Risk Factor for Sedentary Lifestyle, Risk Factor for Depression, Highest Risk: Risk Factor for Diabetes - For Smoking Smoking Risk Guidelines: Smoking Low Risk: None or quit greater than 6 months ago. Smoking Moderate Risk: Smoker or quit 6 months or less ago. Smoking High Risk: Smoker - For Dyslipidemia Dyslipidemia Risk Guidelines: Low Risk: Moderate Risk: High Risk: 15-25% fat 25.1-29% fat >/= 30% fat. <7% sat fat 7-9% sat fat >9% sat fat. <150 mg chol 150-299 mg chol >/= 300 mg chol. LDL <100 LDL 100-129 LDL >/= 130. Chol/HDL ratio <5.0 Chol/HDL ratio 5.0-6.0 Chol/HDL ratio >6.0. Triglycerides <100 Triglycerides 100-149 Triglycerides >/= 150 - For Diabetes Mellitus Diabetes Risk Guidelines: Diabetes Low Risk: HgA1c <6.5% and/or FBG <120. Diabetes Moderate Risk: HgA1c 6.6-7.9% and/or FBG 120-180. Diabetes High Risk: HgA1c >/= 8% and/or FBG >180 - For Obesity/Overweight Obesity/Overweight Risk Guidelines: Obesity Low Risk: BMI <25.0. Obesity Moderate Risk: BMI 25-29.9. Obesity High Risk: BMI >/= 30.0 - For Hypertension Hypertension Risk Guidelines: Hypertension Low Risk: Systolic <120 and Diastolic <80. Hypertension Moderate Risk: Systolic 120-139 and Diastolic 80-89. Hypertension High Risk: Systolic >/= 140 and Diastolic >/= 90 - For Sedentary Lifestyle Sedentary Lifestyle Risk Guidelines: Sedentary Lifestyle Low Risk: >/= 1,500 kcal/week. Sedentary Lifestyle Moderate Risk: 700-1,499 kcal/week. Sedentary Lifestyle High Risk: < 700 kcal/week - For Depression Depression Risk Guidelines: Depression Low Risk: Not clinically depressed. Depression Moderate Risk: Mildly depressed. Depression High Risk: Clinically depressed - Family History Family History: Family History (Last Reviewed 05/19/19 @ 09:12 by Richard Perry MD) Father COPD (chronic obstructive pulmonary disease) Myocardial infarction Mother Diabetes CAD (coronary artery disease) Alzheimers disease CVA (cerebral vascular accident) Brother H/O angioplasty Diabetes Brother CVA (cerebral vascular accident) Son Diabetes Motivation - Motivation to Participate On a scale of 1 to 10, how prepared are you to commit to attending program?: 10 What do you see as barriers to successfully being able to complete the program?: TAKING CAR OF What do you see as the benefits of succesfully completing the program? In other words, what do you hope to get out of participating in the program?: MORE ENERGY AND BETTER HEALTH TO TAKE CARE OF MY Are there issues you are dealing with that will interfere with completing the program?: CARE OF SPOUSE Do you have a spouse or signficant other, family or friends who will help support you to complete the program?: SPOUSE, SONS AND GRANDCHILDREN
[2019-06-02 09:57] VITALS: BP 88/48; PULSE 69; RESP 16; TEMP 37; O2SAT 96; BMI 39.4
--- NOTE | 2019-06-02 10:07 | CR.ITP_ITS ---
General Information - General Information Admitting Diagnosis: AMI, STEMI, PPTCA, PCI W/CORONARY STENT PLACEMENT - Education/Goals Barriers to Learning: None Individual Counseling: Initial Assessment: Abnormal Cholesterol Levels, High Blood Pressure, Overweight/Obesity - OBESITY,GERD, UPPER GI BLEED, Diabetes - TYPE II DM Cardiac Rehabilitation Goals: 1. Maintain the individual as the primary focus of care. 2. To improve the patient's quality of life. 3. Identification of cardiac risk factors and provide cardiac risk factor management. 4. Enhance the psychosocial status of the patient. 5. Reconditioning enough to allow the patient to resume customary activities. 6. Control symptoms of cardiac disease Scale for measuring improvement of personal goals: Enter appropriate number in Comments. 2 = Unchanged. 3 = Slightly Better. 4 = Moderate Improvement. 5 = Met my Goal Personal Goals: Initial Assessment: Improve energy level, Improve muscle strength and endurance, Improve diet and eating habits (eat healthier), Control risk factors (learn risk factor modification) Exercise - Initial Assessment - Visit Date of Eval: 06/02/19 Session #:: 0 - START CR ON 06/03/2019 - Stages of Change Stages of Change:: Action - Stress Test Date: 05/25/19 HR (bpm):: 75 EKG: AT PEAK EXERCISE NON-SPECIFIC ST & T WAVE CHANGES MET LEVEL:: 6 Blood Pressure: 122/72 - Physician Prescribed Exercise Modalities: Treadmill, Airdyne, NuStep Frequency (days/week): 3x/week for 12 weeks [36 sessions] Intensity: 60-80% age predicted maximum heart rate reserve METs - Progression: 0.5-1.0 MET, RPE 11-14 WEEK: 2.5 Target Heart Rate:: 97-126 - Hypertension Do any of the following apply?: Yes, Medication, Diet Resting Blood Pressure:: 122/72 Peak Exercise Blood Pressure:: 198/92 - Intervention Home Exercise/Activity Goal:: Moderate Exercise 30 min/day x 5 days/wk - Education Goals:: Warm-up, RPE DAVIE Scale, S/S, Safe Exercise, Self-Monitoring - Exercise Program Goals Exercise Program Goals: Aerobic Activity >30 min Nutrition - Initial Assessment - Program Goals Nutrition Program Goals: LDL <70. Total Cholesterol <200. HDL >45. Triglycerides <150. HgbA1C <7%. BMI <25 - Visit Date of Assessment:: 06/02/19 - Stages of Change Stages of Change:: Action - Lipids Total Cholesterol (mg/dL) Goal = less than 200 mg/dL: 150 - 03/18/2019 HDL Cholesterol (mg/dL) Goal = less than 45 mg/dL: 63 LDL Cholesterol (mg/dL) Goal = less than 70 mg/dL: 58 Triglycerides (mg/dL) Goal = less than 150 mg/dL: 147 - Diabetes Insulin: No Non-Insulin Dependent?: Yes Do you monitor your blood sugar at home?: Yes - Weight Management Height: 5 ft 3 in Weight:: 223 lb Weight Goal (kg):: 199 lb Body Fat %:: 39.4 - Intervention Referral to dietitian:: Yes Referral to Diabetic Clinic:: Yes Will attend diet classes:: Yes - Education Gave educational materials for:: Signs & symptoms of hypoglycemia, Signs & symptoms of hyperglycemia, Relate diabetes to coronary artery disease, Healthy eating Tobacco - Initial Assessment - Program Goals Tobacco Program Goals: Complete smoking cessation. Attend education classes. Improve Knowledge Test score - Stage of Change Stages of Change:: Action - Learning Barriers Learning Barriers: Ready to Learn - Family Support Do you have family support?: Yes - Tobacco Use Tobacco Use: Non-smoker Do you use smokeless tobacco?: No - Intervention Smoking Cessation Referral:: No Individual Education/Counseling:: No Education Schedule Given:: Yes - Education Attended class for:: Treating Heart Disease, How The Heart Works, What it means to have Heart Disease, How Coronary Artery Disease is Diagnosed, Heart Procedures, What Heart Medications Do, Risk Factors & Modifications, Living an Active Life, Nutrition, Emotions & Heart Disease, Stress Management & Relaxation, Sleep Disorders & Heart Disease Psychosocial - Initial Assess - Target Goals Target Goals: Assess presence or absence of depression. Using a valid screening tool, maximizes coping skills. Positive support system - Stages of Change Stages of Change:: Action - Psychosocial Test Tool Used:: HANDS Depression Questionnaire - Intervention PS - Interventions: Yes Attend Stress Management Classes, No Referral to Mental Health, No Referral to [facility] Case Management, No Referral to Physician, No Uses Stress Management Skills - Education Gave educational materials for:: Coping techniques, Signs & symptoms of depression, Stress management, Relaxation techniques - Patient/Program Goal Preventative Medication(s):: Aspirin, WILIAN inhibitor, Clopidogrel, Beta harinder, Statin/lipid - Assistive Devices Assistive Devices:: None Fall Risk Assessed:: Yes Patient Health Questionnaire Initial Assessment 1. Little interest or pleasure in doing things: Several days 2. Feeling down, depressed, or hopeless: Several days 3. Trouble falling or staying asleep, or sleeping too much: More than half the days 4. Feeling tired or having little energy: More than half the days 5. Poor appetite or overeating: Several days 6. Feeling bad about yourself -- or that you are a failure or have let yourself or your family down: Several days 7. Trouble concentrating on things, such as reading the newspaper or watching television: Several days 8. Moving or speaking so slowly that other people could have noticed. Or the opposite - being so fidgety or restless that you have been moving around a lot more than usual: Not at all 9. Thoughts that you would be better off , or of hurting yourself in some way: Not at all How difficult have these problems made it for you to do your work, take care of things at home, or get along with other people?: Somewhat difficult Total Score: 9 TOLU-Q SV Test - Statements CAD is a disease of the arteries in the heart: False Examples of risk factors for heart disease: True Angina is chest pain or discomfort: I Don't Know The benefits of resistance training include: True Eating more meat and dairy products: False Anti-platelet medications such as aspirin are important: True The only effective way to manage stress: False An exercise warm-up slowly increases heart rate: I Don't Know Prepared, processed foods usually have high sodium: True Depression is common after a heart attack: I Don't Know The statin medications lower cholesterol: True To control blood pressure, lower the amount of sodium: I Don't Know If someone gets chest discomfort during walking: False Transfats are partially hydrogenated vegetable oils: True Sleep apnea that is not treated increases the risk: False To control cholesterol, one should become a vegetarian: False Someone knows if he/she is exercising at the right level: I Don't Know Diabetes cannot be prevented with exercise & health eating: False Stress is a large risk for heart attack: False A diet that can help lower blood pressure is rich in: True - Total Score Total Correct Responses: 14 Self-Efficacy Initial Assessment We would like to know how confident you are in doing certain activities. Please select your confidence level for:: Select your confidence level for the following using the scale 1-10 where 1 is not at all confident and 10 is totally confident. Your score is the average of all 6 responses. Fatigue: How confident are you that you can keep the fatigue caused by your disease from interfering with the things you want to do? Select Number: 1 Physical Discomfort or Pain: How confident are you that you can keep the physical discomfort or pain of your disease from interfering with the things you want to do? Select Number: 9 Emotional Distress: How confident are you that you can keep the emotional distress caused by your disease from interfering with the things you want to do? Select Number: 9 Other Symptoms or Health Problems: How confident are you that you can keep other symptoms or health problems from interfering with the things you want to do? Select Number: 3 Different Tasks and Activities: How confident are you that you can do the different tasks and activities needed to manage your health condition so as to reduce your need to see a doctor? Select Number: 3 Medication: How confident are you that you can do things other than just taking medication to reduce how much your illness affects your everyday life? Select Number: 3 Total Score:: 4 Nutrition Survey - Nutrition Survey Instructions Scoring Instructions: Scoring is as follows: Yes = 1 points. No = 0 point. Patient score that is >/=12 is considered to be at potential nutritional risk and could benefit from a referral to a registered dietitian. - Nutrition Survey Initial Have you lost >10 lbs over the past 2 months without trying?: Yes Are you following a special diet at home for diabetes, low fat, or low salt?: No Are you interested in meeting with a dietitian for help understanding your diet?: Yes - OBESITY, HYPERLIPIDEMIA, DM TYPE II, GERD, GI BLEED Do you eat less than 3 meals a day?: No Do you eat fatty meats (nuñez, sausage, ribs, etc), fried foods, desserts, large amounts of salad dressings, margarine, butter, or cheese most days?: No Do you have food allergies? [Enter types in comment field]: No Do you eat in restaurants more than 3 times a week?: No Do you season food with salt, seasoning salt, or garlic salt?: Yes Do you used canned, boxed, frozen meals, or soups, seasoning packets?: No Total Score:: 3
[2019-06-02 10:27] VITALS: BP 122/72; BP 198/92
== END ==
PROVIDERS: Family Provider Family Medicine; PCP Family Medicine; Referring Provider Internal Medicine Cardiovascular Disease; Visit Provider Internal Medicine Cardiovascular Disease
DX: I25.10 Atherosclerotic heart disease of native coronary artery without angina pectoris (principal); Z95.5 Presence of coronary angioplasty implant and graft

== ENCOUNTER 2019-06-29 13:00 | Outpatient (RCR) | payer MEDICARE, OTHER, SELFPAY ==
[2019-05-26 10:53] VITALS: BMI 38.9
[2019-06-02 09:57] VITALS: BMI 39.4
== END 2019-06-29 23:59 ==
LOC: CR 13:00
PROVIDERS: Family Provider Family Medicine; PCP Family Medicine; Referring Provider Internal Medicine Cardiovascular Disease; Visit Provider Internal Medicine Cardiovascular Disease
DX: I25.10 Atherosclerotic heart disease of native coronary artery without angina pectoris (principal); I10 Essential (primary) hypertension; E78.5 Hyperlipidemia, unspecified; Z95.5 Presence of coronary angioplasty implant and graft
CPT/HCPCS: 93798

== ENCOUNTER 2019-07-29 13:00 | Outpatient (RCR) | payer MEDICARE, OTHER, SELFPAY ==
[2019-05-26 10:53] VITALS: BMI 38.9
[2019-06-02 09:57] VITALS: BMI 39.4
--- NOTE | 2019-07-01 14:05 | CR.ITP_ITS ---
Exercise - 30-day Assessment - Visit Date of Eval: 07/01/19 Session #:: 12 - Stages of Change Stages of Change:: Action - Physician Prescribed Exercise Modalities: Treadmill, Airdyne, NuStep Frequency (days/week): 3 Duration (Minutes):: 30-45 Intensity: 60-80% age predicted maximum heart rate reserve METs - Progression: 0.5-1.0 MET, RPE 11-14 WEEK: 4.0 increase from 2.5 Target Heart Rate:: 97-126 w/max hr 108 - Hypertension Resting Blood Pressure:: 126/74 Peak Exercise Blood Pressure:: 142/64 Medication Changes:: No - Intervention Home Exercise/Activity Goal:: Moderate Exercise 30 min/day x 5 days/wk - Education Goals:: Warm-up, RPE DAVIE Scale, S/S, Safe Exercise, Self-Monitoring - Exercise Program Goals Exercise Program Goals: Aerobic Activity >30 min Nutrition - Initial Assessment - Program Goals Nutrition Program Goals: LDL <70. Total Cholesterol <200. HDL >45. Triglycerides <150. HgbA1C <7%. BMI <25 - Diabetes Do you monitor your blood sugar at home?: Yes Nutrition - 30-Day Assessment - Program Goals Nutrition Program Goals: LDL <70. Total Cholesterol <200. HDL >45. Triglycerides <150. HgbA1C <7%. BMI <25 - Visit Date of Eval: 07/01/19 - Stages of Change Stages of Change:: Action - Lipids Has the patient seen the dietitian?: No - Diabetes Diabetes:: Yes Insulin: Yes Non-Insulin Dependent?: Yes - Weight Management Weight:: 222 lb 8 oz - unchanged - Intervention Referral to dietitian:: Yes Referral to Diabetic Clinic:: Yes Will attend diet classes:: Yes - Education Attended class for:: Signs & symptoms of hypoglycemia, Signs & symptoms of hyperglycemia, Relate diabetes to coronary artery disease, Healthy eating Tobacco - Initial Assessment - Program Goals Tobacco Program Goals: Complete smoking cessation. Attend education classes. Improve Knowledge Test score - Learning Barriers Learning Barriers: Ready to Learn Tobacco - 30-Day Assessment - Program Goals Tobacco Program Goals: Complete smoking cessation. Attend education classes. Improve Knowledge Test score - Stage of Change Stages of Change:: Action - Learning Barriers Learning Barriers: Participates in education - Family Support Do you have family support?: Yes - Tobacco Use Tobacco Use: Non-smoker Do you use smokeless tobacco?: No - Intervention Smoking Cessation Referral:: No Individual Education/Counseling:: No Education Schedule Given:: Yes - Education Attended class for:: Heart Procedures, What Heart Medications Do, Risk Factors & Modifications, Living an Active Life Psychosocial - Initial Assess - Target Goals Target Goals: Assess presence or absence of depression. Using a valid screening tool, maximizes coping skills. Positive support system - Psychosocial Test Tool Used:: HANDS Depression Questionnaire - Assistive Devices Fall Risk Assessed:: Yes Psychosocial - 30-Day Assess - Target Goals Target Goals: Assess presence or absence of depression. Using a valid screening tool, maximizes coping skills. Positive support system - Stages of Change Stages of Change:: Action - Psychosocial Test Tool Used:: HANDS Depression Questionnaire - Intervention PS - Interventions: Yes Attend Stress Management Classes, No Referral to Mental Health, No Referral to [facility] Case Management, No Referral to Physician, No Uses Stress Management Skills - Education Attended classes for:: Coping techniques, Signs & symptoms of depression, Stress management, Relaxation techniques - Patient/Program Goal Preventative Medication(s):: Aspirin, WILIAN inhibitor, Clopidogrel, Beta harinder, Statin/lipid - Assistive Devices Assistive Devices:: None Patient Health Questionnaire 30-Day Re-eval Assessment 1. Little interest or pleasure in doing things: Not at all 2. Feeling down, depressed, or hopeless: Not at all 3. Trouble falling or staying asleep, or sleeping too much: Not at all 4. Feeling tired or having little energy: Several days 5. Poor appetite or overeating: Not at all 6. Feeling bad about yourself -- or that you are a failure or have let yourself or your family down: Not at all 7. Trouble concentrating on things, such as reading the newspaper or watching television: Not at all 8. Moving or speaking so slowly that other people could have noticed. Or the opposite - being so fidgety or restless that you have been moving around a lot more than usual: Not at all 9. Thoughts that you would be better off , or of hurting yourself in some way: Not at all Total Score: 1 Self-Efficacy 30-Day Re-eval Assessment We would like to know how confident you are in doing certain activities. Please select your confidence level for:: Select your confidence level for the following using the scale 1-10 where 1 is not at all confident and 10 is totally confident. Your score is the average of all 6 responses. Fatigue: How confident are you that you can keep the fatigue caused by your disease from interfering with the things you want to do? Select Number: 9 Physical Discomfort or Pain: How confident are you that you can keep the physical discomfort or pain of your disease from interfering with the things you want to do? Select Number: 9 Emotional Distress: How confident are you that you can keep the emotional distress caused by your disease from interfering with the things you want to do? Select Number: 10 Other Symptoms or Health Problems: How confident are you that you can keep other symptoms or health problems from interfering with the things you want to do? Select Number: 10 Different Tasks and Activities: How confident are you that you can do the different tasks and activities needed to manage your health condition so as to reduce your need to see a doctor? Select Number: 10 Medication: How confident are you that you can do things other than just taking medication to reduce how much your illness affects your everyday life? Select Number: 10 Total Score:: 9
[2019-07-01 14:08] VITALS: BP 126/74; BP 142/64
== END 2019-07-30 23:59 ==
LOC: CR 13:00
PROVIDERS: Family Provider Family Medicine; PCP Family Medicine; Referring Provider Internal Medicine Cardiovascular Disease; Visit Provider Internal Medicine Cardiovascular Disease
DX: I25.10 Atherosclerotic heart disease of native coronary artery without angina pectoris (principal); I10 Essential (primary) hypertension; E78.5 Hyperlipidemia, unspecified; Z95.5 Presence of coronary angioplasty implant and graft
CPT/HCPCS: 93798

== ENCOUNTER 2019-08-26 09:15 | Outpatient (RCR) | payer MEDICARE, OTHER, SELFPAY ==
[2019-05-26 10:53] VITALS: BMI 38.9
[2019-07-03 09:22] VITALS: BMI 38.9
[2019-07-31 01:05] VITALS: BP 126/74; BP 142/64
--- NOTE | 2019-08-04 06:42 | PCM.CR.ITP ---
Exercise - 60-Day Assessment - Visit Date of Eval: 08/04/19 Session #:: 23 - patient has missed 4 sessions to date. - Stages of Change Stages of Change:: Action - Physician Prescribed Exercise Modalities: Treadmill, Airdyne, NuStep Frequency (days/week): 3 Duration (Minutes):: 30-45 Intensity: 60-80% age predicted maximum heart rate reserve METs - Progression: 0.5-1.0 MET, RPE 11-14 WEEK: 4 RPE 12-13 NO INCREASE PATIENT FEELS MAX'D Target Heart Rate:: 97-126 W/ MAX HR 99 - Hypertension Resting Blood Pressure:: 132/62 Peak Exercise Blood Pressure:: 160/72 Medication Changes:: No - Intervention Home Exercise/Activity Goal:: Moderate Exercise 30 min/day x 5 days/wk - Education Goals:: Warm-up, RPE DAVIE Scale, S/S, Safe Exercise, Self-Monitoring - Exercise Program Goals Exercise Program Goals: Aerobic Activity >30 min Nutrition - Initial Assessment - Program Goals Nutrition Program Goals: LDL <70. Total Cholesterol <200. HDL >45. Triglycerides <150. HgbA1C <7%. BMI <25 - Diabetes Do you monitor your blood sugar at home?: Yes Nutrition - 60-Day Assessment - Program Goals Nutrition Program Goals: LDL <70. Total Cholesterol <200. HDL >45. Triglycerides <150. HgbA1C <7%. BMI <25 - Visit Date of Eval: 08/04/19 - Stages of Change Stages of Change:: Action - Lipids Has the patient seen the dietitian?: No - Diabetes Diabetes:: No Insulin: No Non-Insulin Dependent?: No - Weight Management Weight:: 224 lb - UNCHANGED THIS 30-DAY - Intervention Referral to dietitian:: No Referral to Diabetic Clinic:: No Will attend diet classes:: Yes - Education Attended class for:: Healthy eating Tobacco - Initial Assessment - Program Goals Tobacco Program Goals: Complete smoking cessation. Attend education classes. Improve Knowledge Test score - Learning Barriers Learning Barriers: Ready to Learn Tobacco - 60-Day Assessment - Program Goals Tobacco Program Goals: Complete smoking cessation. Attend education classes. Improve Knowledge Test score - Stage of Change Stages of Change:: Action - Learning Barriers Learning Barriers: Participates in education, Change in behavior - Family Support Do you have family support?: Yes - Tobacco Use Tobacco Use: Non-smoker Do you use smokeless tobacco?: No - Intervention Smoking Cessation Referral:: No Individual Education/Counseling:: No Education Schedule Given:: Yes - Education Attended class for:: Heart Procedures, What Heart Medications Do, Risk Factors & Modifications, Living an Active Life, Nutrition, Emotions & Heart Disease, Stress Management & Relaxation, Sleep Disorders & Heart Disease Psychosocial - Initial Assess - Target Goals Target Goals: Assess presence or absence of depression. Using a valid screening tool, maximizes coping skills. Positive support system - Psychosocial Test Tool Used:: HANDS Depression Questionnaire - Assistive Devices Fall Risk Assessed:: Yes Psychosocial - 60-Day Assess - Target Goals Target Goals: Assess presence or absence of depression. Using a valid screening tool, maximizes coping skills. Positive support system - Stages of Change Stages of Change:: Action - Psychosocial Test Tool Used:: HANDS Depression Questionnaire - Intervention PS - Interventions: Yes Attend Stress Management Classes, Yes Uses Stress Management Skills, No Referral to Mental Health, No Referral to [facility] Case Management, No Referral to Physician - Education Attended classes for:: Coping techniques, Signs & symptoms of depression, Stress management, Relaxation techniques - Patient/Program Goal Preventative Medication(s):: Aspirin, WILIAN inhibitor, Clopidogrel, Beta harinder, Statin/lipid - PATIENT IS COMPLIANT WITH MEDICATIONS - Assistive Devices Assistive Devices:: None Fall Risk Assessed:: Yes Patient Health Questionnaire 60-Day Re-eval Assessment 1. Little interest or pleasure in doing things: Not at all 2. Feeling down, depressed, or hopeless: Not at all 3. Trouble falling or staying asleep, or sleeping too much: Not at all 4. Feeling tired or having little energy: Not at all 5. Poor appetite or overeating: Not at all 6. Feeling bad about yourself -- or that you are a failure or have let yourself or your family down: Not at all 7. Trouble concentrating on things, such as reading the newspaper or watching television: Not at all 8. Moving or speaking so slowly that other people could have noticed. Or the opposite - being so fidgety or restless that you have been moving around a lot more than usual: Not at all 9. Thoughts that you would be better off , or of hurting yourself in some way: Not at all How difficult have these problems made it for you to do your work, take care of things at home, or get along with other people?: Not difficult at all Total Score: 0 Self-Efficacy 60-Day Re-eval Assessment We would like to know how confident you are in doing certain activities. Please select your confidence level for:: Select your confidence level for the following using the scale 1-10 where 1 is not at all confident and 10 is totally confident. Your score is the average of all 6 responses. Fatigue: How confident are you that you can keep the fatigue caused by your disease from interfering with the things you want to do? Select Number: 10 Physical Discomfort or Pain: How confident are you that you can keep the physical discomfort or pain of your disease from interfering with the things you want to do? Select Number: 10 Emotional Distress: How confident are you that you can keep the emotional distress caused by your disease from interfering with the things you want to do? Select Number: 10 Other Symptoms or Health Problems: How confident are you that you can keep other symptoms or health problems from interfering with the things you want to do? Select Number: 10 Different Tasks and Activities: How confident are you that you can do the different tasks and activities needed to manage your health condition so as to reduce your need to see a doctor? Select Number: 10 Medication: How confident are you that you can do things other than just taking medication to reduce how much your illness affects your everyday life? Select Number: 10 Total Score:: 10
[2019-08-04 06:46] VITALS: BP 132/62; BP 160/72
== END 2019-08-29 23:59 ==
LOC: CR 09:15
PROVIDERS: Family Provider Family Medicine; PCP Family Medicine; Referring Provider Internal Medicine Cardiovascular Disease; Visit Provider Internal Medicine Cardiovascular Disease
DX: I25.10 Atherosclerotic heart disease of native coronary artery without angina pectoris (principal); I10 Essential (primary) hypertension; E78.5 Hyperlipidemia, unspecified; Z95.5 Presence of coronary angioplasty implant and graft
CPT/HCPCS: 93798

== ENCOUNTER 2019-09-02 09:15 | Outpatient (RCR) | payer MEDICARE, OTHER, SELFPAY ==
[2019-05-26 10:53] VITALS: BMI 38.9
[2019-07-03 09:22] VITALS: BMI 38.9
[2019-08-30 00:49] VITALS: BP 132/62; BP 160/72
--- NOTE | 2019-08-31 10:37 | PCM.CR.ITP ---
Exercise - Final/Discharge - Visit Date of Eval: 08/31/19 - Stages of Change Stages of Change:: Action - Physician Prescribed Exercise Modalities: Treadmill, Airdyne, NuStep Frequency (days/week): 3 Duration (Minutes):: 30-45 Intensity: 60-80% age predicted maximum heart rate reserve METs - Progression: 0.5-1.0 MET, RPE 11-14 WEEK: 4.5 Target Heart Rate:: 97-126 W/ MAX HR 110 - Hypertension Do any of the following apply?: Yes Resting Blood Pressure:: 98/60 Peak Exercise Blood Pressure:: 158/74 - Intervention Home Exercise/Activity Goal:: Moderate Exercise 30 min/day x 5 days/wk - Education Goal Progress: Goal Met - Exercise Program Goals Exercise Program Goals: Aerobic Activity >30 min Nutrition - Initial Assessment - Program Goals Nutrition Program Goals: LDL <70. Total Cholesterol <200. HDL >45. Triglycerides <150. HgbA1C <7%. BMI <25 - Diabetes Do you monitor your blood sugar at home?: Yes Nutrition - Final Assessment - Program Goals Nutrition Program Goals: LDL <70. Total Cholesterol <200. HDL >45. Triglycerides <150. HgbA1C <7%. BMI <25 - Visit Date of Eval: 08/31/19 - Stages of Change Stages of Change:: Action - Diabetes Diabetes:: No Insulin: No Non-Insulin Dependent?: No - Weight Management Height: 5 ft 3 in Weight:: 223 lb Body Fat %:: 39.4 - UNCHANGED - Intervention Referral to dietitian:: No Referral to Diabetic Clinic:: No Will attend diet classes:: Yes - Education Education Goal Reached?: No - pATEITN DECLINED ONE-ON-ONE WEIGHT LOSS Tobacco - Initial Assessment - Program Goals Tobacco Program Goals: Complete smoking cessation. Attend education classes. Improve Knowledge Test score - Learning Barriers Learning Barriers: Ready to Learn Tobacco - Final Assessment - Program Goals Tobacco Program Goals: Complete smoking cessation. Attend education classes. Improve Knowledge Test score - Stage of Change Stages of Change:: Action - Family Support Do you have family support?: Yes - Tobacco Use Tobacco Use: Non-smoker Do you use smokeless tobacco?: No - Intervention Smoking Cessation Referral:: No Individual Education/Counseling:: No Education Schedule Given:: Yes - Education Education Goal Reached?: Yes - PATIENT ACTIVELY PARTICIPATED IN EDUCATION Psychosocial - Initial Assess - Target Goals Target Goals: Assess presence or absence of depression. Using a valid screening tool, maximizes coping skills. Positive support system - Psychosocial Test Tool Used:: HANDS Depression Questionnaire - Assistive Devices Fall Risk Assessed:: Yes Psychosocial - Final Assessmen - Target Goals Target Goals: Assess presence or absence of depression. Using a valid screening tool, maximizes coping skills. Positive support system - Stages of Change Stages of Change:: Action - Psychosocial Test Tool Used:: HANDS Depression Questionnaire - Intervention PS - Interventions: Yes Attend Stress Management Classes, Yes Uses Stress Management Skills, No Referral to Mental Health, No Referral to [facility] Case Management, No Referral to Physician - Education Education Goal Reached?: Yes - Patient/Program Goal Preventative Medication(s):: Aspirin, WILIAN inhibitor, Clopidogrel, Beta harinder, Statin/lipid - Assistive Devices Assistive Devices:: None Fall Risk Assessed:: Yes Patient Health Questionnaire Discharge Assessment 1. Little interest or pleasure in doing things: Not at all 2. Feeling down, depressed, or hopeless: Not at all 3. Trouble falling or staying asleep, or sleeping too much: Not at all 4. Feeling tired or having little energy: Not at all 5. Poor appetite or overeating: Not at all 6. Feeling bad about yourself -- or that you are a failure or have let yourself or your family down: Not at all 7. Trouble concentrating on things, such as reading the newspaper or watching television: Not at all 8. Moving or speaking so slowly that other people could have noticed. Or the opposite - being so fidgety or restless that you have been moving around a lot more than usual: Not at all 9. Thoughts that you would be better off , or of hurting yourself in some way: Not at all Total Score: 0 TOLU-Q SV Test - Statements CAD is a disease of the arteries in the heart: False Examples of risk factors for heart disease: True Angina is chest pain or discomfort: True The benefits of resistance training include: True Eating more meat and dairy products: False Anti-platelet medications such as aspirin are important: True The only effective way to manage stress: False An exercise warm-up slowly increases heart rate: True Prepared, processed foods usually have high sodium: True Depression is common after a heart attack: True The statin medications lower cholesterol: True To control blood pressure, lower the amount of sodium: True If someone gets chest discomfort during walking: False Transfats are partially hydrogenated vegetable oils: True Sleep apnea that is not treated increases the risk: False To control cholesterol, one should become a vegetarian: False Someone knows if he/she is exercising at the right level: True Diabetes cannot be prevented with exercise & health eating: False Stress is a large risk for heart attack: True A diet that can help lower blood pressure is rich in: True - Total Score Total Correct Responses: 20 Self-Efficacy Discharge Assessment We would like to know how confident you are in doing certain activities. Please select your confidence level for:: Select your confidence level for the following using the scale 1-10 where 1 is not at all confident and 10 is totally confident. Your score is the average of all 6 responses. Fatigue: How confident are you that you can keep the fatigue caused by your disease from interfering with the things you want to do? Select Number: 10 Physical Discomfort or Pain: How confident are you that you can keep the physical discomfort or pain of your disease from interfering with the things you want to do? Select Number: 10 Emotional Distress: How confident are you that you can keep the emotional distress caused by your disease from interfering with the things you want to do? Select Number: 10 Other Symptoms or Health Problems: How confident are you that you can keep other symptoms or health problems from interfering with the things you want to do? Select Number: 10 Different Tasks and Activities: How confident are you that you can do the different tasks and activities needed to manage your health condition so as to reduce your need to see a doctor? Select Number: 10 Medication: How confident are you that you can do things other than just taking medication to reduce how much your illness affects your everyday life? Select Number: 10 Total Score:: 10 Nutrition Survey - Nutrition Survey Instructions Scoring Instructions: Scoring is as follows: Yes = 1 points. No = 0 point. Patient score that is >/=12 is considered to be at potential nutritional risk and could benefit from a referral to a registered dietitian. - Nutrition Survey Discharge Have you lost >10 lbs over the past 2 months without trying?: No Are you following a special diet at home for diabetes, low fat, or low salt?: No Are you interested in meeting with a dietitian for help understanding your diet?: No Do you eat less than 3 meals a day?: No Do you eat fatty meats (nuñez, sausage, ribs, etc), fried foods, desserts, large amounts of salad dressings, margarine, butter, or cheese most days?: No Do you have food allergies? [Enter types in comment field]: No Do you eat in restaurants more than 3 times a week?: No Do you season food with salt, seasoning salt, or garlic salt?: No Do you used canned, boxed, frozen meals, or soups, seasoning packets?: Yes Total Score:: 1
[2019-08-31 10:41] VITALS: BP 158/74; BP 98/60
== END 2019-09-11 14:17 | disposition home or self-care (01) ==
LOC: CR 09:15
PROVIDERS: Family Provider Family Medicine; PCP Family Medicine; Referring Provider Internal Medicine Cardiovascular Disease; Visit Provider Internal Medicine Cardiovascular Disease
DX: I25.10 Atherosclerotic heart disease of native coronary artery without angina pectoris (principal); I10 Essential (primary) hypertension; E78.5 Hyperlipidemia, unspecified; Z95.5 Presence of coronary angioplasty implant and graft
CPT/HCPCS: 93798

== ENCOUNTER 2019-09-07 00:48 | Inpatient (IN) | payer MEDICARE, OTHER, SELFPAY ==
[2019-05-26 10:53] VITALS: BMI 38.9
[2019-07-03 09:22] VITALS: BMI 38.9
[2019-09-07] VITALS (11 sets, daily range): BP systolic 118–200; BP diastolic 65–105; PULSE 76–98; RESP 16–20; TEMP 36.3–36.8; O2SAT 93–96; BMI 39.6; BMI 38.2
--- NOTE | 2019-09-07 00:57 | EKG12_ITS ---
Test Reason : DYSRHYTHMIA Blood Pressure : / mmHG Vent. Rate : 077 BPM Atrial Rate : 077 BPM P-R Int : 212 ms QRS Dur : 102 ms QT Int : 432 ms P-R-T Axes : 063 007 096 degrees QTc Int : 488 ms Sinus rhythm with 1st degree A-V block Left ventricular hypertrophy with repolarization abnormality Cannot rule out Septal infarct , age undetermined Abnormal ECG Confirmed by VICKY CLAYTON, VONNIE ([id number]), features editor CHARLES TAMAYO ([id number]) on 09/09/2019 11:40:48 AM Referred By: Confirmed By:VONNIE PERRY MD
--- NOTE | 2019-09-07 00:57 | CT_ITS ---
STUDY: CT ABDOMEN AND PELVIS WITHOUT CONTRAST REASON FOR EXAM: Female, 73 years old. Nausea and vomiting, she woke the patient sleep. History of hysterectomy, laminectomy, appendectomy, hypertension, and coronary artery. RADIATION DOSAGE (If Supplied By Facility): CTDIvol = ( 21.26 ) mGy, DLP = ( 1125.87 ) mGycm TECHNIQUE: Transaxial images were obtained from the dome of the diaphragm to the symphysis pubis without oral contrast, and without intravenous contrast. Sagittal and coronal images were reconstructed. Detailed visualization of the lower pelvis is limited by artifacts from metallic hip prostheses. Individualized dose optimization techniques were used for this CT. COMPARISON: CT scan pelvis 05/13/2017. FINDINGS: There is mild atelectasis or fibrosis in the visualized lung bases bilaterally. There is bronchial wall thickening and normal visualized lower lobes bilaterally, left greater than right. There is also mild left lower lobe peribronchial infiltration, which may represent bronchopneumonia. The visualized portions of the heart are within normal limits. There are coronary artery calcifications. Normal liver. There are multiple small calcified gallstones. There is no bile duct dilatation. Normal spleen. There is diffuse atrophy of the pancreas. Normal bilateral adrenal glands. There is mild hydronephrosis of both kidneys. There are no demonstrated urinary calculi. There is a small hiatal hernia. Normal small intestine. Normal colon. There is non-visualization of the appendix, consistent with given history of prior appendectomy. There is mild atherosclerotic calcification of the abdominal aorta, without a demonstrated aneurysm. Normal inferior vena cava. Normal retroperitoneum. Normal urinary bladder. There is absence of the uterus consistent with a prior hysterectomy. Normal abdominal wall. There are diffuse degenerative changes of the visualized lumbar spine. There are laminectomy defects at the L3 and L4 levels. There are bilateral hip prostheses. CT/Abdomen/Pelvis without Cont IMPRESSION: Mild peribronchial infiltration in the left lower lobe may represent early pneumonia. Bilateral lower lobe bronchial wall thickening, suggesting an infectious or inflammatory bronchitis. Gallstones. Mild hydronephrosis of both kidneys without demonstrated urinary calculus. Potential etiologies would include pyelonephritis, vesicoureteral reflux, or bilateral UVJ obstructions, of indeterminate etiology. Small hiatal hernia. Atherosclerosis. Previous hysterectomy and appendectomy. No evidence for diverticulitis. No evidence for bowel obstruction or ileus. Electronically Signed: Aime Erickson MD at 2:46 EST , Service support ,
--- NOTE | 2019-09-07 00:59 | ED.DCSUM_ITS ---
- ER Visit Summary Date of Service: 09/07/19 Chief Complaint: Nausea and vomiting History of Present Illness: The patient is a 73 F presenting with nausea and vomiting which started this evening. Patient states she has had several episodes of vomiting tonight. She complains of nausea and dizziness. She d enies diarrhea or constipation. Denies blood in her emesis. Denies abdominal pain. Denies fever or chills. She does have a productive cough. Denies chest pain or shortness of breath. Denies urinary complaints. Denies headache. Denies other complaints. Physical Examination: Vitals are stable. Patient is afebrile. Alert no acute distress. HEENT exam dry mucous membranes Neck is supple. Lungs are clear and equal bilaterally. Heart is regular rate and rhythm. Abdomen is soft nontender nondistended. No guarding or rebound Extremities are unremarkable. Skin is warm and dry. No focal neurologic deficit. Remainder of exam is unremarkable. Emergency Department Course and Treatment: Patient was given IV fluids, Phenergan. EKG is sinus rate is 77 with LVH, inferior lateral ST depression. Chest x-ray shows no visualized pulmonary infiltrate on chest x-ray. However, abdominal CT scan demonstrates bilateral lower lobe bronchial wall thickening as well as mild peribronchial infiltration in the left lower lobe which may represent early pneumonia. Influenza negative. CBC normal except for hemoglobin 11.6. Chemistry shows potassium 2.9, glucose 142. Liver lipase are normal. Urinalysis unremarkable. Troponin is negative. Lactic acid 2.9. Blood cultures were sent. She was given Rocephin, Zithromax. CT abdomen pelvis shows mild peribronchial infiltration in the left lower lobe may represent early pneumonia. Bilateral lower lobe bronchial wall thickening, suggesting an infectious or inflammatory bronchitis. Gallstones. Mild hydronephrosis of both kidneys without demonstrated urinary calculus. Potential etiologies would include pyelonephritis, vesicoureteral reflux, or bilateral UVJ obstructions, of indeterminate etiology. Small hiatal hernia. Atherosclerosis. Previous hysterectomy and appendectomy. No evidence for diverticulitis. No evidence for bowel obstruction or ileus. Patient continues to have nausea and is complaining of bilateral leg cramping. She was given morphine, Zofran IV. She was given potassium IV replacement. Discussed with the hospitalist for admission. Disposition: Admission Impression: Pneumonia, nausea vomiting, hypokalemia This note was generated with [employer] dictation software. It may contain incorrect words, spelling, and punctuation that were not noted in review of the chart prior to signing ED Disposition - Plan for ED Patient: Disposition: Acute Care Hospital [facility]
--- NOTE | 2019-09-07 01:05 | RAD_ITS ---
STUDY: X-RAY CHEST REASON FOR EXAM: Female, 73 years old. Nausea, vomiting, and cough. TECHNIQUE: Single AP portable view of the chest. COMPARISON: 12/13/2017. CT scan abdomen and pelvis 09/07/2019. FINDINGS: The lungs are mildly underexpanded. There is no demonstrated pulmonary infiltrate on this chest x-ray. CT scan abdomen and pelvis done today demonstrates bronchial wall thickening in the lower lobes bilaterally as well as mild peribronchial infiltration in the left lower lobe, which may represent early pneumonia.. There is no demonstrated pleural abnormality. Normal size heart. Normal mediastinum and joyce. Normal visualized pulmonary arteries. Normal visualized aortic arch and descending thoracic aorta. There are degenerative changes of the visualized thoracic spine. Normal visualized ribs, clavicles, and shoulders. There is no demonstrated abnormality of the visualized soft tissue structures of the upper abdomen. RAD/Chest 1 View (Portable) IMPRESSION: No visualized pulmonary infiltrate on chest x-ray. However, abdominal CT scan demonstrates bilateral lower lobe bronchial wall thickening as well as mild peribronchial infiltration in the left lower lobe which may represent early pneumonia. Electronically Signed: Aime Erickson MD at 2:12 EST , Service support ,
[2019-09-07] MEDS: proMETHazine 25 MG/ML Syringe 6.25 MG IV (01:11)
[2019-09-07 01:20] LABS: Absolute Lymphocyte Count 4.72 X10^3/uL (0.83-4.51); Absolute Neutrophil Count 4.2 X10^3/uL (2.0-7.7); Eosinophil# 0.45 X10^3/uL; Eosinophils% 4.5 % (0-5); Hematocrit 35.8 % (37-47); Hemoglobin 11.6 g/dL (12.0-15.0); Lymphocyte # 4.72 X10^3/ul (4.0); Lymphocyte % 46.7 % (19-41); Mean Corp Hgb Conc 32.4 g/dL (32-36); Mean Corpuscular Hgb 26.3 pg (27.0-32.0); Mean Corpuscular Volume 81.2 fL (81-99); Monocyte# 0.63 X10^3/uL; Monocyte% 6.2 % (0-10); NRBC Flagged by Analyzer 0 % (0-5); Neutrophil # 4.16 X10^3/uL (2.7-7.7); Neutrophil % 41.2 % (47-70); Platelet Count 378 K/mm3 (150-450); RBC Distribution Width CV 14.7 % (11.6-14.6); RBC Distribution Width SD 43.6 fl (35.1-43.9); Red Blood Count 4.41 M/mm3 (4.2-5.4); White Blood Count 10.1 K/mm3 (4.4-11.0)
[2019-09-07] MEDS: 0.9% Normal Saline 1,000 ML 1000 ML IV (01:28)
[2019-09-07 01:38] LABS: Bacteria 0 SEEN /hpf (None Seen); Mucous, Urine 0 SEEN /hpf (<or=2+); Red Blood Cells-Urine 0 SEEN /hpf (0-5); White Blood Cells 0 SEEN /hpf (0-5)
[2019-09-07 01:41] LABS: AST(SGOT) 22 U/L (15-37); Alanine Aminotransfer ALT/SGPT 19 U/L (13-56); Albumin, Serum 3.8 g/dL (3.2-5.0); Alkaline Phosphatase 99 U/L (45-117); Anion Gap 10 (5-15); BUN 17 mg/dL (7-18); BUN/Creat Ratio 20.1 RATIO (10-20); Calcium,Total 8.9 mg/dL (8.5-10.1); Chloride 107 mmol/L (98-107); Creatinine, Serum 0.84 mg/dL (0.55-1.02); EST Glomerular Filtration Rate 71 mL/min (>60); Est Glom Filt Rate - Afr Amer 85 mL/min (>60); Estimated Creatinine Clearance 50.81 ml/min; Globulin 3.8 g/dL (2.2-4.2); Glucose 142 mg/dL (74-106); Lipase 139 U/L (73-393); Potassium 2.9 mmol/L (3.5-5.1); Protein, Total 7.6 g/dL (6.4-8.2); Sodium Level 142 mmol/L (136-145)
[2019-09-07 01:46] LABS: Lactic Acid 2.9 mmol/L (0.4-1.9)
[2019-09-07 01:46] LABS: Color, Urine Straw (Yellow); Glucose, Dipstick 100 mg/dl (Normal); Ketone-Dipstick Negative (Negative); Leukocyte Esterase-Dipstick Negative /ul (Negative); Nitrite-Dipstick Negative (Negative); Occult Blood-Urine Negative /ul (Negative); Protein-Dipstick 15 mg/dl (Negative); Urine Bilirubin Dipstick Negative (Negative); Urine Clarity Clear (Clear); Urine Urobilinogen Normal (Normal)
--- NOTE | 2019-09-07 01:49 | ED.RN ---
dr rosales notified of lactic 2.9
[2019-09-07 01:51] LABS: Squamous Epithelial Cells - UA 0-5 SEEN /hpf (5-10)
--- NOTE | 2019-09-07 02:21 | ED.RN ---
pt yelling out in pain from leg cramps. dr rosales aware.
[2019-09-07] MEDS: 0.9% Normal Saline 1,000 ML 999 ML IV (02:25)
[2019-09-07] MEDS: Morphine 4 MG/ML Syringe IV (02:26)
[2019-09-07] MEDS: Ondansetron 4 MG/2 ML Vial IV (02:26)
[2019-09-07] MEDS: Potassium Chloride 10mEq/100mL 10 MEQ/100 ML IV.SOLN. 100 MEQ IV BOLUS ×4 (02:39→06:17)
[2019-09-07] MEDS: Ceftriaxone 1 GM/50 ML BAG IV (03:19)
--- NOTE | 2019-09-07 03:38 | HP.PCM_ITS ---
History of Present Illness Date of Admission: 09/07/19 Chief Complaint: Nausea and vomiting The patient is a 73 year old F with PMH as below who presents with nausea and vomiting. She has been feeling ill for the last several days and it worsened at this evening with nausea and vomiting. She was also having significant leg cramping. She denies any chest pain or shortness of breath as well as fevers or chills. She has had a cough since about Thanksgi and saw her doctor for it and was given steroids and an antibiotic. In the ER she was found to have a lactic acid of 2.9 with potassium of 2.9. She had a CT scan of her abdomen and pelvis because of her nausea and vomiting which showed mild peribronchial infiltration bilateral lower lobe, without any significant abdominal pathology. She was started on IV fluids as well as potassium replacement and antibiotics for her pneumonia. Past Medical History Past Medical History (Chronic Problems): Chronic Problems (Last Reviewed 07/03/19 @ 09:39 by Richard Gutierrez MD) Atherosclerosis of coronary artery of knik heart without angina pectoris (Chronic) PCI-EMELYN-OM1 w/ 2.5 x 17 mm Elunir Stent and EMELYN-Mid-LAD w/ Synery 2.50 x 38 mm Synergy MR 05/26/2019 Essential (primary) hypertension (Chronic) Hyperlipidemia (Chronic) Medical History: Medical History (Last Reviewed 07/03/19 @ 09:39 by Richard Gutierrez MD) Atherosclerosis of coronary artery of knik heart without angina pectoris (Chronic) I25.10 PCI-EMELYN-OM1 w/ 2.5 x 17 mm Elunir Stent and EMELYN-Mid-LAD w/ Synery 2.50 x 38 mm Synergy MR 05/26/2019 Essential (primary) hypertension (Chronic) I10 Hyperlipidemia (Chronic) E78.5 GERD (gastroesophageal reflux disease) K21.9 Obesity E66.9 Type 2 diabetes mellitus E11.9 Abnormal nuclear stress test (Resolved) R94.39 Upper GI bleed K92.2 Allergies atorvastatin [From Lipitor] Allergy (Verified 09/07/19 01:02) myalgias Penicillins Allergy (Verified 09/07/19 01:02) Rash pravastatin Allergy (Verified 09/07/19 01:02) myalgias CAT SCAN DYE Allergy (Uncoded 09/07/19 01:02) Shortness of breath NON-PAPER TAPE Allergy (Uncoded 09/07/19 01:02) Unknown Home Medications: Ambulatory Orders Medication Instructions Recorded Paroxetine [Paxil] 30 mg PO DAILY 10/08/13 metFORMIN (XR) [Glucophage Xr] 1,000 mg PO DINNER 10/08/13 Aspirin [Aspirin, Baby] 81 mg PO DAILY 12/13/17 Benazepril HCl [Lotensin] 20 mg PO DAILY 12/13/17 Omeprazole 20 mg PO DAILY 12/13/17 Rosuvastatin Calcium [Crestor] 5 mg PO QHS 12/13/17 acetaminophen 500 mg tablet 1,000 mg PO Q8 PRN 12/18/17 insulin detemir (U-100) 100 30 unit SC BREAKFAST ml 05/19/19 unit/mL (3 mL) subcutaneous pen insulin detemir (U-100) 100 48 unit SC QHS ml 05/19/19 unit/mL (3 mL) subcutaneous pen metoprolol tartrate 25 mg tablet 25 mg PO BID #180 tab 06/12/19 ticagrelor 90 mg tablet 90 mg PO BID #180 tab 06/12/19 isosorbide dinitrate 10 mg tablet 10 mg PO TID #270 tab 08/10/19 Surgical History: Surgical History (Last Reviewed 07/03/19 @ 09:39 by Richard Gutierrez MD) History of coronary artery stent placement (Resolved) Onset Date: 05/26/19 Z95.5 PCI-EMELYN-OM1 w/ 2.5 x 17 mm Elunir Stent and EMELYN-Mid-LAD w/ Synery 2.50 x 38 mm Synergy MR 05/26/2019 H/O total hip arthroplasty Z96.649 History of bilateral hip replacements Z96.643 left- 05/14/17 Right- 09/2013 History of hysterectomy Z90.710 History of laminectomy Z98.890 lower back 11/2015 History of left heart catheterization Onset Date: 12/07/11 Z98.890 2003,2011 History of total bilateral knee replacement Z96.653 right- 11/2003 left- 05/2008 Hx of appendectomy Z90.49 Surgical History: appendectomy, hysterectomy, total hip arthroplasty, total knee arthroplasty, - Psychiatric History: Depression [employer] History: No pertinent [employer] history Smoking Status: Never smoker Alcohol: None Drugs: None - *Family History Maternal Family History: Family History (Last Reviewed 07/03/19 @ 09:39 by Richard Gutierrez MD) Father COPD (chronic obstructive pulmonary disease) Myocardial infarction Mother Diabetes CAD (coronary artery disease) Alzheimers disease CVA (cerebral vascular accident) Brother H/O angioplasty Diabetes Brother CVA (cerebral vascular accident) Son Diabetes History Items: Dementia, No pertinent history Paternal Family History: Family History (Last Reviewed 07/03/19 @ 09:39 by Richard Gutierrez MD) Father COPD (chronic obstructive pulmonary disease) Myocardial infarction Mother Diabetes CAD (coronary artery disease) Alzheimers disease CVA (cerebral vascular accident) Brother H/O angioplasty Diabetes Brother CVA (cerebral vascular accident) Son Diabetes History Items: No pertinent history Review of Systems Constitutional: Denies: Chills, Fever, Weight Change HEENT: Denies: Head Aches, Sinus Congestion, Sinus Drainage Cardiovascular: Denies: Chest Pain, Palpitations Respiratory: Denies: Cough, Shortness of breath at rest, Sputum production Gastrointestinal: Reports: Nausea, Vomiting. Denies: Abdominal Pain Genitourinary: Denies: Dysuria Musculoskeletal: Denies: Joint Pain, Joint Tenderness Skin: Denies: Rash, Wounds Neurological: Denies: Numbness, Tingling, Focal weakness Psychiatric: Denies: Anxiety, Depression, Homicidal Ideations, Suicidal Ideations Hematologic/ Lymphatic: Denies: Easy Bruising, Easy Bleeding VTE Information - Inpt Only VTE Present on Admission: No - Physical Exam Vitals/I&O's: Vital Signs Temp Pulse Resp BP Pulse Ox 97.5 F L 86 16 162/93 H 94 09/07/19 03:23 09/07/19 03:23 09/07/19 03:23 09/07/19 03:23 09/07/19 03:23 Oxygen Delivery Method Room Air Weight: 223 lb 8.78 oz Body Mass Index (BMI) 39.6 Finger Stick Blood Glucose 232 Intake and Output for Last 24 Hours 09/05/19 09/06/19 09/07/19 23:59 23:59 23:59 Intake Total 1999 / 1999 Output Total 1100 / 1100 Balance 900 / 900 General: Alert, Oriented x3, Cooperative, Lethargic HEENT: Atraumatic, PERRLA, EOMI, Normocephalic Oral: Dry Mucosa Neck: Supple, No JVD Lungs: Clear to auscultation, Normal air movement, No rhonchi, No wheeze, No rales, Diminished Cardiovascular: Regular rate, Regular Rhythm, Normal S1, Normal S2, No murmurs Abdomen: Soft, Non Tender, Non-Distended, No Hepato-splenomegaly Extremities: No edema, Capillary Refill Less than 3 Seconds Skin: No rashes, No breakdown Neurological: Neuro grossly intact, Sensory exam intact to light touch and pain Psych/Mental Status: Normal Affect, Appropriate Microbiology Past 72 Hours 09/07/19 01:20 Mucosa - Nasopharyngeal Influenza Types A,B Direct FA ([facility]) - Final Laboratory Results 09/07/19 01:09: WBC 10.1, RBC 4.41, Hgb 11.6 L, Hct 35.8 L, MCV 81.2, MCH 26.3 L , MCHC 32.4, RDW Std Deviation 43.6, RDW Coeff of Sridhar 14.7 H, Plt Count 378, MPV 10.0, Immature Gran % (Auto) 0.400, Neut % (Auto) 41.2 L, Lymph % (Auto) 46.7 H , Coal % (Auto) 6.2, Eos % (Auto) 4.5, Baso % (Auto) 1.0, Absolute Neuts (auto) 4.2, Absolute Lymphs (auto) 4.72 H, Nucleated RBC % 0 09/07/19 01:09: Sodium 142, Potassium 2.9 L, Chloride 107, Carbon Dioxide 25.0, Anion Gap 10, BUN 17, Creatinine 0.84, Estim Creat Clear Calc 50.81, Est GFR (MDRD) Af Amer 85, Est GFR (MDRD) Non-Af 71, BUN/Creatinine Ratio 20.1 H, Glucose 142 H, Calcium 8.9, Total Bilirubin 0.40, AST 22, ALT 19, Alkaline Phosphatase 99, Troponin I < 0.015, Total Protein 7.6, Albumin 3.8, Globulin 3.8, Albumin/Globulin Ratio 1.0, Lipase 139 09/07/19 01:09: Lactic Acid 2.9 H* 09/07/19 01:30: Urine Color Straw, Urine Clarity Clear, Urine pH 7.0, Ur Specific [place] 1.010, Urine Protein 15 H, Urine Glucose (UA) 100 H, Urine Ketones Negative, Urine Occult Blood Negative, Urine Nitrite Negative, Urine Bilirubin Negative, Urine Urobilinogen Normal, Ur Leukocyte Esterase Negative, Urine RBC 0 SEEN, Urine WBC 0 SEEN, Ur Squamous Epith Cells 0-5 SEEN, Urine Bacteria 0 SEEN, Urine Mucus 0 SEEN Current Medications Potassium Chloride () 10 meq in 100 mls @ 100 mls/hr IV BOLUS Q1H JAMIE Stop: 09/07/19 06:29 Last Admin: 09/07/19 02:39 Dose: 100 mls/hr Documented by: Azithromycin 500 mg/ Dextrose 255 mls @ 250 mls/hr IV X1 ONE Stop: 09/07/19 04:07 Assessment/Plan All Active Problems (Last Reviewed 07/03/19 @ 09:39 by Richard Gutierrez MD) Cardiomyopathy in diseases classified elsewhere (Acute) History of coronary artery stent placement (Resolved 05/26/19) Abnormal Heart Score CT (Resolved) Abnormal nuclear stress test (Resolved) Chest pain (Resolved) Debility (Resolved) Inability to ambulate due to hip (Resolved) 1. Bilateral lower lobe pneumonia/hypokalemia secondary to nausea and vomiting -This is likely very early given lack of fever and leukocytosis -We will continue with Rocephin and azithromycin -We will check strep and Legionella urine antigens -Sputum culture pending -IV fluids and recheck lactate, initial lactic acid 2.9 -She is getting 40 mEq IV of potassium, will recheck as well as a magnesium and phosphorus this morning. 2. Coronary artery disease status post stents/HTN/HLD -Systolic blood pressure was significantly elevated to 200 but this was at the time when she was having significant pain in her lower extremities, this improved to 160s prior to transfer to the floor -We will continue with her home medication of benazepril, metoprolol, and isosorbide dinitrate -Continue with Crestor -Continue with aspirin and Brilinta 3. IDDM 2 -We will continue with her home insulin dosing of 30 units in the morning and 48 units at night -Hold metformin -Continue with Accu-Cheks AC at bedtime and sliding scale insulin 4. GERD -Stable -Continue with PPI 5. Anxiety/depression -Stable -Continue with Paxil DVT: Lovenox Code Visit Inpatient E&M: 31006 Init Hosp L3
[2019-09-07] MEDS: 0.9% Normal Saline 1,000 ML 100 ML IV (04:57)
[2019-09-07 05:15] LABS: Reflex Lactate? Y
[2019-09-07 05:24] LABS: Absolute Lymphocyte Count 0.75 X10^3/uL (0.83-4.51); Absolute Neutrophil Count 6.2 X10^3/uL (2.0-7.7); Basophil# 0.06 X10^3/uL; Basophil% 0.8 % (0-1); Eosinophil# 0.03 X10^3/uL; Eosinophils% 0.4 % (0-5); Hematocrit 34.8 % (37-47); Hemoglobin 11.1 g/dL (12.0-15.0); Lymphocyte # 0.75 X10^3/ul (4.0); Lymphocyte % 10.2 % (19-41); Mean Corp Hgb Conc 31.9 g/dL (32-36); Mean Corpuscular Hgb 26.4 pg (27.0-32.0); Mean Corpuscular Volume 82.9 fL (81-99); Mean Platelet Vol. 9.7 fl (6.2-12.0); Monocyte# 0.31 X10^3/uL; Monocyte% 4.2 % (0-10); NRBC Flagged by Analyzer 0 % (0-5); Neutrophil # 6.16 X10^3/uL (2.7-7.7); Platelet Count 343 K/mm3 (150-450); RBC Distribution Width CV 14.6 % (11.6-14.6); RBC Distribution Width SD 43.8 fl (35.1-43.9); White Blood Count 7.3 K/mm3 (4.4-11.0)
[2019-09-07 05:44] LABS: Anion Gap 7 (5-15); BUN 15 mg/dL (7-18); BUN/Creat Ratio 19.3 RATIO (10-20); Calcium,Total 8.2 mg/dL (8.5-10.1); Chloride 101 mmol/L (98-107); Creatinine, Serum 0.78 mg/dL (0.55-1.02); EST Glomerular Filtration Rate 77 mL/min (>60); Est Glom Filt Rate - Afr Amer 94 mL/min (>60); Estimated Creatinine Clearance 42.68 ml/min; Glucose 236 mg/dL (74-106); Magnesium 1.7 mg/dL (1.6-2.6); Phosphorus 3.5 mg/dL (2.5-4.9); Potassium 3.9 mmol/L (3.5-5.1); Sodium Level 136 mmol/L (136-145)
[2019-09-07 07:00] LABS: Bedside Glucose 186 mg/dL (70-110)
[2019-09-07] MEDS: Insulin Lispro 100 UNIT/ML INSULN.PEN SC ×2 (07:17→11:54)
[2019-09-07] MEDS: Enoxaparin 40 MG/0.4 ML Syringe SC (09:19)
[2019-09-07] MEDS: Acetaminophen 325 MG Tablet 650 MG PO (09:21)
[2019-09-07 12:01] LABS: Bedside Glucose 168 mg/dL (70-110)
--- NOTE | 2019-09-07 13:37 | CASEMGMT ---
RN CM Assessment Introduced role of RN CM to patient.? Patient is alert, oriented and able?to participate in RN CM Assessment. ?Care providers, pharmacy, and demographics verified. Presentation: N/V, ill last several days Admit Dx: PNA Re-Admit: No Barriers/Issues: None PCP: Lisa Gamble Specialists: Cardio- Dr Gutierrez Preferred Pharmacy: [facility] Insurance: [facility], Physician Yancey Rx Benefit:?Yes ?LNOK: Marycruz Herrera LW/HPOA: Yes both on file at [facility], HPOA- Marycruz Herrera Living Arrangements:? Lives with in a H, 2 steps to enter through the garage ADL?s: Independent with ambulation and ADLs Transportation: Both patient and drives, denies transportation issues/needs. DME: Glucometer, grab bars in walk in shower. Denies any other DME. HHC: None SNF: Past at [facility] Goal: Home and does not think will have any needs. Denies any questions, concerns, or issues with DC planning at this time. Aware CM remains available for any emerging needs. DC PLAN: Home and no anticipated needs identified at this time. KEYANA Curtis
--- NOTE | 2019-09-07 14:57 | CASEMGMT ---
Patient has a Healthcare POA and Healthcare LW on file at [facility]. Erika BAXTER SERVICE CLERK
--- NOTE | 2019-09-07 15:00 | DCINST_ITS ---
You will use the following diet at home:: Calorie/Carbohydrate Controlled (specify 1200, 1400, etc) - 1800 Your food should be the consistency of: Regular Discharge Activity: Return to Normal Activity Call your doctor if you observe: Fever of 101 or Higher, Shortness of breath, Dizziness, Fainting spells Allergies/Adverse Reactions: Allergies atorvastatin [From Lipitor] Allergy (Verified 09/07/19 01:02) myalgias Penicillins Allergy (Verified 09/07/19 01:02) Rash pravastatin Allergy (Verified 09/07/19 01:02) myalgias CAT SCAN DYE Allergy (Uncoded 09/07/19 01:02) Shortness of breath NON-PAPER TAPE Allergy (Uncoded 09/07/19 01:02) Unknown Medications to take at Discharge Paroxetine [Paxil] 30 mg PO DAILY 10/08/13 Aspirin [Aspirin, Baby] 81 mg PO DAILY 12/13/17 Benazepril HCl [Lotensin] 20 mg PO DAILY 12/13/17 Omeprazole 20 mg PO DAILY 12/13/17 Rosuvastatin Calcium [Crestor] 5 mg PO QHS 12/13/17 acetaminophen 500 mg tablet 1,000 mg PO Q8 PRN 12/18/17 insulin detemir (U-100) 100 unit/mL (3 mL) subcutaneous pen 30 unit SC BREAKFAST ml 05/19/19 insulin detemir (U-100) 100 unit/mL (3 mL) subcutaneous pen 48 unit SC QHS ml 05/19/19 isosorbide dinitrate 10 mg tablet 10 mg PO TID #270 tab 08/10/19 Metoprolol Tartrate [Lopressor (beta harinder)] 25 mg PO BID 09/07/19 Ticagrelor [Brilinta] 90 mg PO BID 09/07/19 metFORMIN (XR) [Glucophage Xr] 1,000 mg PO DINNER #0 09/07/19 Primary Care Physician: Frederic Laurent DO [COURTESY STAFF PHYSICIAN] - Within 2 Weeks Test Results: Test results from this visit will be discussed in further detail at your follow- up appointment, if applicable. Proposed Discharge Date: 09/07/19
--- NOTE | 2019-09-07 15:03 | DS.PCM_ITS ---
Discharge Date and Diagnosis Date of Admission: 09/07/19 Date of Discharge: 09/07/19 - Primary Discharge Diagnosis vertigo bronchitis - Secondary Discharge Diagnosis Chronic Problems (Last Reviewed 07/03/19 @ 09:39 by Richard Gutierrez MD) Atherosclerosis of coronary artery of [place] heart without angina pectoris (Chronic) PCI-EMELYN-OM1 w/ 2.5 x 17 mm Elunir Stent and EMELYN-Mid-LAD w/ Synery 2.50 x 38 mm Synergy MR 05/26/2019 Essential (primary) hypertension (Chronic) Hyperlipidemia (Chronic) Hospital Course and Treatment Imaging Results: Clinical Impression(s) from Imaging Studies Abdomen/Pelvis CT 09/07/19 00:57 IMPRESSION: Mild peribronchial infiltration in the left lower lobe may represent early pneumonia. Bilateral lower lobe bronchial wall thickening, suggesting an infectious or inflammatory bronchitis. Gallstones. Mild hydronephrosis of both kidneys without demonstrated urinary calculus. Potential etiologies would include pyelonephritis, vesicoureteral reflux, or bilateral UVJ obstructions, of indeterminate etiology. Small hiatal hernia. Atherosclerosis. Previous hysterectomy and appendectomy. No evidence for diverticulitis. No evidence for bowel obstruction or ileus. Electronically Signed: Aime Erickson MD at 2:46 EST , Service support , Chest X-Ray 09/07/19 01:05 IMPRESSION: No visualized pulmonary infiltrate on chest x-ray. However, abdominal CT scan demonstrates bilateral lower lobe bronchial wall thickening as well as mild peribronchial infiltration in the left lower lobe which may represent early pneumonia. Electronically Signed: Aime Erickson MD at 2:12 EST , Service support , Operations: None Procedures: None Summary of Care Provided: The patient is a 73 year old F who is been treated for pneumonia as outpatient starting antibiotics on 6. This morning, patient woke with profound dizziness with associated diaphoresis, nausea, room spinning sensation. Symptoms abated after short period of time but presented to the emergency room. In the emergency room, patient chest x-ray is unremarkable and CT scan of her abdomen that showed some possible early pneumonia. Patient did have an elevated lactic acid of 2.9 then went to 3 and patient was admitted and started on azithromycin and ceftriaxone. Patient was never hypoxic, she did not have a white count and was otherwise hemodynamically stable still felt that the patient was not in sepsis nor severe sepsis. The lactic acidosis may been elevated due to the nausea and vomiting but also concomitant use of metformin. Regards the patient's dizziness is seem consistent with acute vertigo. Reassurance was provided to the patient and felt that the patient could be discharged home today in stable condition. Patient advised to return if he does have a recurrent dizziness. Patient was prescribed an antibiotic which she does not know off hand but other than she takes it twice a day. I told her that she probably has more of a bronchitis but since she is already been initiated on antibiotics that she may continue with what she was already prescribed. [] - Physical Exam Vitals/I&O's: Vital Signs Temp Pulse Resp BP Pulse Ox 36.7 C 89 18 124/65 H 95 09/07/19 09:25 09/07/19 09:25 09/07/19 09:25 09/07/19 09:25 09/07/19 09:25 Oxygen Delivery Method Room Air Weight: 97.8 kg Body Mass Index (BMI) 38.2 Finger Stick Blood Glucose 232 Intake and Output for Last 24 Hours 09/05/19 09/06/19 09/07/19 23:59 23:59 23:59 Intake Total 3065 / 3065 Output Total 2150 / 2150 Balance 915 / 915 General: Alert, Cooperative, No apparent distress HEENT: Atraumatic, Normocephalic Oral: Moist Mucosa, No Gingival or Mucosal Lesions/ Ulcerations Neck: No Nodes, Trachea Midline Lungs: Clear to auscultation, Normal air movement, No rhonchi, No wheeze, No rales Cardiovascular: Regular rate, Regular Rhythm, Normal S1, Normal S2, No murmurs Abdomen: Bowel Sounds Present, Soft, Non Tender, Non-Distended, No Hepato- splenomegaly Extremities: No edema, No Calf Tenderness Psych/Mental Status: Normal Affect, Appropriate Microbiology Past 72 Hours 09/07/19 04:30 Urine, Clean Catch Legionella Antigen - Final 09/07/19 04:30 Urine, Clean Catch Streptococcus pneumoniae Antigen (M - Kelli l 09/07/19 01:20 Mucosa - Nasopharyngeal Influenza Types A,B Direct FA (SONYA) - Final Laboratory Results 09/07/19 01:09: WBC 10.1, RBC 4.41, Hgb 11.6 L, Hct 35.8 L, MCV 81.2, MCH 26.3 L , MCHC 32.4, RDW Std Deviation 43.6, RDW Coeff of Sridhar 14.7 H, Plt Count 378, MPV 10.0, Immature Gran % (Auto) 0.400, Neut % (Auto) 41.2 L, Lymph % (Auto) 46.7 H , [place] % (Auto) 6.2, Eos % (Auto) 4.5, Baso % (Auto) 1.0, Absolute Neuts (auto) 4.2, Absolute Lymphs (auto) 4.72 H, Nucleated RBC % 0 09/07/19 01:09: Sodium 142, Potassium 2.9 L, Chloride 107, Carbon Dioxide 25.0, Anion Gap 10, BUN 17, Creatinine 0.84, Estim Creat Clear Calc 50.81, Est GFR (MDRD) Af Amer 85, Est GFR (MDRD) Non-Af 71, BUN/Creatinine Ratio 20.1 H, Glucose 142 H, Calcium 8.9, Total Bilirubin 0.40, AST 22, ALT 19, Alkaline Phosphatase 99, Troponin I < 0.015, Total Protein 7.6, Albumin 3.8, Globulin 3.8, Albumin/Globulin Ratio 1.0, Lipase 139 09/07/19 01:09: Lactic Acid 2.9 H* 09/07/19 01:30: Urine Color Straw, Urine Clarity Clear, Urine pH 7.0, Ur Specific [place] 1.010, Urine Protein 15 H, Urine Glucose (UA) 100 H, Urine Ketones Negative, Urine Occult Blood Negative, Urine Nitrite Negative, Urine Bilirubin Negative, Urine Urobilinogen Normal, Ur Leukocyte Esterase Negative, Urine RBC 0 SEEN, Urine WBC 0 SEEN, Ur Squamous Epith Cells 0-5 SEEN, Urine Bacteria 0 SEEN, Urine Mucus 0 SEEN 09/07/19 05:15: WBC 7.3, RBC 4.20, Hgb 11.1 L, Hct 34.8 L, MCV 82.9, MCH 26.4 L, MCHC 31.9 L, RDW Std Deviation 43.8, RDW Coeff of Sridhar 14.6, Plt Count 343, MPV 9.7, Immature Gran % (Auto) 0.400, Neut % (Auto) 84.0 H, Lymph % (Auto) 10.2 L, [place] % (Auto) 4.2, Eos % (Auto) 0.4, Baso % (Auto) 0.8, Absolute Neuts (auto) 6.2, Absolute Lymphs (auto) 0.75 L, Nucleated RBC % 0 09/07/19 05:15: Sodium 136, Potassium 3.9, Chloride 101, Carbon Dioxide 28.0, Anion Gap 7, BUN 15, Creatinine 0.78, Estim Creat Clear Calc 42.68, Est GFR (MDRD) Af Amer 94, Est GFR (MDRD) Non-Af 77, BUN/Creatinine Ratio 19.3, Glucose 236 H, Calcium 8.2 L, Phosphorus 3.5, Magnesium 1.7 09/07/19 05:15: Lactic Acid 3.0 H* 09/07/19 06:55: POC Glucose 186 H 09/07/19 11:53: POC Glucose 168 H Current Medications Acetaminophen (Tylenol) 650 mg PO Q6H PRN PRN PRN Reason: Pain Score 1-10/Temp > 100.7 F Last Admin: 09/07/19 09:21 Dose: 650 mg Documented by: Dextrose (D50w Syringe) 0 gm IV X1 PRN; Protocol PRN Reason: Hypoglycemia Enoxaparin Sodium (Lovenox) 40 mg SC DAILY FOR[facility]LY [facility], [facility]1983 Last Admin: 09/07/19 09:19 Dose: 40 mg Documented by: Glucagon () 1 mg IM .X1 PRN PRN Reason: Hypoglycemia Sodium Chloride () 1,000 mls @ 100 mls/hr IV .Q10H [facility], [facility] Last Admin: 09/07/19 04:57 Dose: 100 mls/hr Documented by: Azithromycin 500 mg/ Dextrose 255 mls @ 250 mls/hr IV Q24H [facility], [facility]1983 Ceftriaxone Sodium 2 gm/ (Sodium Chloride) 50 mls @ 100 mls/hr IV Q24H [facility], [facility] Insulin Glargine (Lantus (Bk)) 30 units SC BREAKFAST [facility], [facility] Last Admin: 09/07/19 09:20 Dose: 30 u Documented by: Insulin Glargine (Lantus ([facility])) 48 units SC QHS [facility], [facility]1983 Insulin Human Lispro (Humalog Kwikpen ([facility])) 0 unit SC ACHS [facility], [facility]; Protocol Last Admin: 09/07/19 11:54 Dose: 2 u Documented by: Ondansetron HCl (Zofran) 4 mg IV Q8H PRN PRN PRN Reason: NAUSEA/VOMITING Discharge Diet: 1800 Calorie Control Diet Discharge Activity: Return to Normal Activity Call your doctor if you observe: Fever of 101 or Higher, Shortness of breath, Dizziness, Fainting spells Home Medications: Medications to take at Discharge Paroxetine [Paxil] 30 mg PO DAILY 10/08/13 Aspirin [Aspirin, Baby] 81 mg PO DAILY 12/13/17 Benazepril HCl [Lotensin] 20 mg PO DAILY 12/13/17 Omeprazole 20 mg PO DAILY 12/13/17 Rosuvastatin Calcium [Crestor] 5 mg PO QHS 12/13/17 acetaminophen 500 mg tablet 1,000 mg PO Q8 PRN 12/18/17 insulin detemir (U-100) 100 unit/mL (3 mL) subcutaneous pen 30 unit SC BREAKFAST ml 05/19/19 insulin detemir (U-100) 100 unit/mL (3 mL) subcutaneous pen 48 unit SC QHS ml 05/19/19 isosorbide dinitrate 10 mg tablet 10 mg PO TID #270 tab 08/10/19 Metoprolol Tartrate [Lopressor (beta harinder)] 25 mg PO BID 09/07/19 Ticagrelor [Brilinta] 90 mg PO BID 09/07/19 metFORMIN (XR) [Glucophage Xr] 1,000 mg PO DINNER #0 09/07/19 Primary Care Physician: Frederic Laurent DO [COURTESY STAFF PHYSICIAN] - Within 2 Weeks Disposition: Home Minutes spent on discharge:: 32 Patient Condition:: Good Medical Necessity - Tobacco Use Smoking Status: Never smoker Meaningful Use Info Meaningful Use Diagnoses (Choose all that apply): None applicable Code Visit OBSV E&M: 11639 Observation care discharge
--- NOTE | 2019-09-07 15:21 | NURSING ---
Discussed patient concerns with physician about her not feeling ready for discharge so soon and family's concerns as well given patient symptoms last night. Per physician patient's symptoms were related to vertigo and she does not have pneumonia and will continue to be discharged this day.
--- NOTE | 2019-09-07 17:01 | CHAPLAIN ---
Type of Pastoral Visit _x__ Initial Visit ___ Follow-up Visit ___ On-call Visit ___ General Patient Visit ___ Spiritual Assessment ___ Family Conference ___ Bereavement ___ Rapid Response ___ Code Blue ___ Other (describe below) Pastoral Care Referral From _x__ Patient ___ Family ___ Nurse ___ Physician ___ Room Designer ___ Chief Wellness Officer ___ Other (describe below) Sacrament/Intervention _x__ Active listening ___ Anointing ___ Jew ___ Bereavement ___ Communion ___ Flor exploration ___ ___ Life review _x__ Prayer ___ Reconciliation ___ Sacrament of Sick ___ Supportive presence ___ Wedding ___ Other (describe below) Pastoral Comments
--- NOTE | 2019-09-08 15:39 | CASEMGMT ---
Case Management DC F/u Call: DC Date: 09/07/19 DC Diagnosis: vertigo, bronchitis DC Disposition: Home Lace/Strata: 06/02 Called patient cell phone listed on demographics, no answer and VM did not verify correct patient, therefore no VM left. Salome Nava RNCM
== END 2019-09-07 17:35 | disposition home or self-care (01) | DRG 202 ==
LOC: ED 03:06 → PCU 03:51
PROVIDERS: Admitting Provider Family Medicine; Emergency Provider Emergency Medicine; Family Provider Family Medicine; PCP Family Medicine
DX: J40 Bronchitis, not specified as acute or chronic (principal); E87.2 Acidosis; E87.6 Hypokalemia; R42 Dizziness and giddiness; I25.10 Atherosclerotic heart disease of native coronary artery without angina pectoris; E11.9 Type 2 diabetes mellitus without complications; E78.5 Hyperlipidemia, unspecified; I10 Essential (primary) hypertension; Z95.5 Presence of coronary angioplasty implant and graft; Z79.82 Long term (current) use of aspirin; Z79.4 Long term (current) use of insulin
CPT/HCPCS: 36415; 71045; 74176; 80048; 80053; 81001; 82962; 83605; 83690; 83735; 84100; 84484; 85025; 87040; 87449; 87804; 93005; 97166; 99285; J7030; J2405

== ENCOUNTER → 2019-09-11 07:02 | Outpatient (CLI) | payer MEDICARE, OTHER, SELFPAY ==
[2019-05-26 10:53] VITALS: BMI 38.9
[2019-09-07 04:21] VITALS: BMI 38.2
[2019-09-11 10:37] LABS: Cholesterol 130 mg/dL (200); High Density Lipoprotein 55 mg/dL; Triglycerides 142 mg/dL; Very Low Density Lipoprotein 28 mg/dL (5-40)
== END ==
PROVIDERS: Family Provider Family Medicine; PCP Family Medicine; Referring Provider Internal Medicine Cardiovascular Disease; Visit Provider Internal Medicine Cardiovascular Disease
DX: E78.2 Mixed hyperlipidemia (principal)
CPT/HCPCS: 36415; 80061

== ENCOUNTER → 2019-12-08 10:03 | Outpatient (CLI) | payer MEDICARE, OTHER, SELFPAY ==
[2019-05-26 10:53] VITALS: BMI 38.9
[2019-09-07 04:21] VITALS: BMI 38.2
--- NOTE | 2019-12-08 10:06 | BI_ITS ---
MAMMOGRAPHY - BILATERAL SCREENING REASON FOR EXAM: Female, 73 years old. Routine annual screening examination. PERTINENT HISTORY: Non-contributory. Remote left breast aspiration. TECHNIQUE: Digital bilateral breast edmund (3D mammographic acquisition) in the CC and MLO projections. 2-D mediolateral oblique (MLO) and craniocaudad (CC) views of both breasts were obtained. CAD: Full Field Digital Mammography with Computer Added Detection was performed. COMPARISON: Comparison is made with prior examination dated November 21, 2018 and October 15, 2017. FINDINGS: Breast Composition: There are scattered areas of fibroglandular density. There are no dominant masses or suspicious calcifications. Stable asymmetry of breast tissue where more breast tissue is seen in the anterior upper lateral portion of the right breast as compared to the left side. No other significant abnormalities are identified. There has been no significant change since the prior study. BI/SCREEN MAMM (CAD) W/EDMUND BILAT IMPRESSION: Stable bilateral screening mammogram. Yearly follow-up mammogram recommended. (A) ASSESSMENT CATEGORY: BIRADS Category 2: Benign. A letter regarding these results will be sent to the patient by the facility within 30 days. Approximately 10% of breast cancers are not detected by mammography. A normal mammogram should not delay biopsy of a clinically suspicious abnormality. [id number] Electronically Signed: Shubham Patel, at 12:44 EDT , Service support ,
== END ==
PROVIDERS: PCP Family Medicine; Referring Provider Family Medicine; Visit Provider Family Medicine
DX: Z12.31 Encounter for screening mammogram for malignant neoplasm of breast (principal)
CPT/HCPCS: 77063; 77067

== ENCOUNTER → 2020-01-19 09:53 | Outpatient (CLI) | payer MEDICARE, OTHER, SELFPAY ==
[2019-05-26 10:53] VITALS: BMI 38.9
[2019-09-07 04:21] VITALS: BMI 38.2
[2020-01-19 12:25] LABS: AST(SGOT) 19 U/L (15-37); Alanine Aminotransfer ALT/SGPT 21 U/L (13-56); Albumin, Serum 3.7 g/dL (3.2-5.0); Alkaline Phosphatase 92 U/L (45-117); Bilirubin, Direct 0.17 mg/dL (0.00-0.30); Globulin 3.3 g/dL (2.2-4.2)
== END ==
PROVIDERS: PCP Family Medicine; Referring Provider Internal Medicine Cardiovascular Disease; Visit Provider Internal Medicine Cardiovascular Disease
DX: E78.2 Mixed hyperlipidemia (principal)
CPT/HCPCS: 36415; 80076

== ENCOUNTER → 2020-03-08 09:53 | Outpatient (CLI) | payer MEDICARE, OTHER, SELFPAY ==
[2019-05-26 10:53] VITALS: BMI 38.9
[2020-01-26 12:24] VITALS: BMI 38.4
[2020-03-08 12:13] LABS: Absolute Lymphocyte Count 1.59 X10^3/uL (0.83-4.51); Absolute Neutrophil Count 5.1 X10^3/uL (2.0-7.7); Basophil# 0.06 X10^3/uL; Basophil% 0.8 % (0-1); Eosinophil# 0.34 X10^3/uL; Eosinophils% 4.5 % (0-5); Hematocrit 35.6 % (37-47); Hemoglobin 11.1 g/dL (12.0-15.0); Lymphocyte # 1.59 X10^3/ul (4.0); Lymphocyte % 21.2 % (19-41); Mean Corp Hgb Conc 31.2 g/dL (32-36); Mean Corpuscular Hgb 25.7 pg (27.0-32.0); Mean Corpuscular Volume 82.4 fL (81-99); Mean Platelet Vol. 10.5 fl (6.2-12.0); Monocyte# 0.44 X10^3/uL; Monocyte% 5.9 % (0-10); NRBC Flagged by Analyzer 0 % (0-5); Neutrophil # 5.06 X10^3/uL (2.7-7.7); Neutrophil % 67.3 % (47-70); Platelet Count 373 K/mm3 (150-450); RBC Distribution Width CV 16.1 % (11.6-14.6); RBC Distribution Width SD 48.4 fl (35.1-43.9); Red Blood Count 4.32 M/mm3 (4.2-5.4); White Blood Count 7.5 K/mm3 (4.4-11.0)
[2020-03-08 12:24] LABS: AST(SGOT) 18 U/L (15-37); Alanine Aminotransfer ALT/SGPT 21 U/L (13-56); Albumin, Serum 3.9 g/dL (3.2-5.0); Alkaline Phosphatase 90 U/L (45-117); Anion Gap 9 (5-15); BUN 24 mg/dL (7-18); BUN/Creat Ratio 30.2 RATIO (10-20); Calcium,Total 9.1 mg/dL (8.5-10.1); Chloride 102 mmol/L (98-107); Creatinine, Serum 0.79 mg/dL (0.55-1.02); EST Glomerular Filtration Rate 76 mL/min (>60); Est Glom Filt Rate - Afr Amer 91 mL/min (>60); Globulin 3.8 g/dL (2.2-4.2); Glucose 162 mg/dL (74-106); Potassium 4.3 mmol/L (3.5-5.1); Protein, Total 7.7 g/dL (6.4-8.2); Sodium Level 138 mmol/L (136-145)
[2020-03-08 12:30] LABS: Hemoglobin A1c 7.8 % (3.8-5.6)
[2020-03-08 12:37] LABS: Microalbumin,Random Urine 19.1 mg/L (NO RANGE EST.); Microalbumin:Creatinine Ratio 10.8 mg/g CRE (<30 mg/g CRE)
== END ==
PROVIDERS: PCP Family Medicine; Referring Provider Family Medicine; Visit Provider Family Medicine
DX: E11.9 Type 2 diabetes mellitus without complications (principal); Z79.4 Long term (current) use of insulin; D50.9 Iron deficiency anemia, unspecified
CPT/HCPCS: 36415; 80053; 82043; 82570; 83036; 85025

== ENCOUNTER → 2020-09-15 14:03 | Outpatient (CLI) | payer MEDICARE, OTHER, SELFPAY ==
[2019-05-26 10:53] VITALS: BMI 38.9
[2020-05-19 09:59] VITALS: BMI 38.7
[2020-09-15 17:30] LABS: Absolute Neutrophil Count 4.3 X10^3/uL (2.0-7.7); Basophil# 0.05 X10^3/uL; Basophil% 0.8 % (0-1); Eosinophil# 0.32 X10^3/uL; Eosinophils% 4.8 % (0-5); Hematocrit 34.8 % (37-47); Hemoglobin 10.8 g/dL (12.0-15.0); Lymphocyte % 21.2 % (19-41); Mean Corpuscular Volume 80.6 fL (81-99); Mean Platelet Vol. 10.1 fl (6.2-12.0); Monocyte# 0.49 X10^3/uL; Monocyte% 7.4 % (0-10); NRBC Flagged by Analyzer 0 % (0-5); Neutrophil # 4.32 X10^3/uL (2.7-7.7); Neutrophil % 65.3 % (47-70); Platelet Count 346 K/mm3 (150-450); RBC Distribution Width CV 16.2 % (11.6-14.6); RBC Distribution Width SD 47.5 fl (35.1-43.9); Red Blood Count 4.32 M/mm3 (4.2-5.4); White Blood Count 6.6 K/mm3 (4.4-11.0)
[2020-09-15 17:33] LABS: Vitamin B12 541 pg/mL (211-911)
[2020-09-15 17:38] LABS: ALB/GLOB Ratio 0.9 RATIO (0.9-2.4); AST(SGOT) 17 U/L (15-37); Alanine Aminotransfer ALT/SGPT 28 U/L (13-56); Albumin, Serum 3.6 g/dL (3.2-5.0); Alkaline Phosphatase 97 U/L (45-117); Anion Gap 6 (5-15); BUN 20 mg/dL (7-18); BUN/Creat Ratio 22.1 RATIO (10-20); Calcium,Total 8.9 mg/dL (8.5-10.1); Chloride 101 mmol/L (98-107); EST Glomerular Filtration Rate 65 mL/min (>60); Est Glom Filt Rate - Afr Amer 79 mL/min (>60); Globulin 3.8 g/dL (2.2-4.2); Glucose 213 mg/dL (74-106); Magnesium 2.1 mg/dL (1.6-2.6); Potassium 4.4 mmol/L (3.5-5.1); Protein, Total 7.4 g/dL (6.4-8.2); Sodium Level 134 mmol/L (136-145)
== END ==
PROVIDERS: Visit Provider Family Medicine
DX: R25.2 Cramp and spasm (principal); D50.9 Iron deficiency anemia, unspecified; E83.42 Hypomagnesemia
CPT/HCPCS: 36415; 80053; 82607; 83735; 85025

== ENCOUNTER 2020-10-09 02:49 | Observation (INO) | payer MEDICARE, OTHER, SELFPAY ==
[2019-05-26 10:53] VITALS: BMI 38.9
[2020-05-19 09:59] VITALS: BMI 38.7
[2020-10-09] VITALS (15 sets, daily range): BP systolic 116–197; BP diastolic 59–106; PULSE 77–108; RESP 14–18; TEMP 36.2–36.7; O2SAT 93–99; BMI 38.7; BMI 37.5; BMI 37.6
--- NOTE | 2020-10-09 03:16 | CT_ITS ---
STUDY: CT BRAIN WITHOUT CONTRAST REASON FOR EXAM: Female, 74 years old. Dizziness, weakness and vomiting. TECHNIQUE: Transaxial CT imaging of the brain was performed without administration of intravenous contrast material. Individualized dose optimization techniques were used for this CT. COMPARISON: MRI brain 06/02/2015. FINDINGS: No evidence of intracranial hemorrhage, mass, acute infarct, or hydrocephalus. Chronic microangiopathic changes in the white matter. Atherosclerosis of the intracranial arteries. No acute osseous abnormality. Visualized paranasal sinuses and mastoid air cells with no air-fluid levels. Mucous retention cyst right maxillary sinus.. Visualized extracranial soft tissues unremarkable. ASPECTS 07/09 CT/Brain/Head without Contrast IMPRESSION: No acute intracranial findings. Electronically Signed: Mikey Noriega MD at 5:20 EST Tel , Service support ,
--- NOTE | 2020-10-09 03:16 | EKG12_ITS ---
Test Reason : WEAKNESS Blood Pressure : / mmHG Vent. Rate : 080 BPM Atrial Rate : 068 BPM P-R Int : 232 ms QRS Dur : 094 ms QT Int : 436 ms P-R-T Axes : 057 012 038 degrees QTc Int : 502 ms Sinus rhythm with 1st degree A-V block with Premature supraventricular complexes Left ventricular hypertrophy with repolarization abnormality Prolonged QT Abnormal ECG Confirmed by VICKY CLAYTON, VONNIE ([id number]), pictures editor CHRISTINE GARRISON ([id number]) on 10/10/2020 10:30:09 AM Referred By: DAX Confirmed By:VONNIE PERRY MD
--- NOTE | 2020-10-09 03:17 | ED.DCSUM_ITS ---
History of Present Illness Chief Complaint: Weakness Informant: Patient Onset: Hours - unk how many Context: Sudden Onset Timing: Continuous Quality and Location: - - dizziness, generalized weakness Onset: sudden Current Severity: Severe Maximum Severity: Severe Worsened by: turning head Relieved by: nothing Associated Symptoms: Nausea, Vomiting. Negative for: Headache, Chest Pain Narrative: Patient presents with vertiginous symptoms, she feels like things are spinning, with vomiting and severe weakness. She states she has had this happen before but cannot recall details or when. She denies having COVID-19, or having any cough or fevers lately, or being around anyone who has been diagnosed with COVID-19 that she knows of. She denies any recent falls or head injuries. She states she has a history of a couple stents in her heart and is on aspirin and Brilinta, no anticoagulants. She denies having pain anywhere. She admits to having double vision with this. She denies any diarrhea. She denies hematemesis. Denies any history of stroke that she knows of. - Past Medical History (1) Atherosclerosis of coronary artery of [place] heart without angina pectoris Status: Chronic (2) Essential (primary) hypertension Status: Chronic (3) Hyperlipidemia Status: Chronic (4) Non-ischemic cardiomyopathy Status: Chronic (5) History of coronary artery stent placement Status: Resolved Comment: RPH-YSV-Xhr-LAD w/ Synery 2.50 x 38 mm Synergy MR and EMELYN-OM1 w/ 2.5 x 17 mm Elunir Stent 05/26/2019 Past Medical History - Allergies and Home Meds Allergies/Adverse Reactions: Allergies atorvastatin [From Lipitor] Allergy (Verified 10/09/20 03:01) myalgias Penicillins Allergy (Verified 10/09/20 03:01) Rash pravastatin Allergy (Verified 10/09/20 03:01) myalgias CAT SCAN DYE Allergy (Uncoded 10/09/20 03:01) Shortness of breath NON-PAPER TAPE Allergy (Uncoded 10/09/20 03:01) Unknown Surgical History: appendectomy, hysterectomy, total hip arthroplasty, total knee arthroplasty Smoking Status: Never smoker - Family History Maternal Family History: Family History (Last Reviewed 05/19/20 @ 11:[address] Richard Gutierrez MD) Father COPD (chronic obstructive pulmonary disease) Myocardial infarction Mother Diabetes CAD (coronary artery disease) Alzheimers disease CVA (cerebral vascular accident) Brother H/O angioplasty Diabetes Brother CVA (cerebral vascular accident) Son Diabetes Family History: Reports: Dementia, No pertinent history Paternal Family History: Family History (Last Reviewed 05/19/20 @ 11:[address] Richard Gutierrez MD) Father COPD (chronic obstructive pulmonary disease) Myocardial infarction Mother Diabetes CAD (coronary artery disease) Alzheimers disease CVA (cerebral vascular accident) Brother H/O angioplasty Diabetes Brother CVA (cerebral vascular accident) Son Diabetes Family History: Reports: No pertinent history Review of Systems ROS: Unable to Obtain - Limited due to feeling very poorly; see below General: Reports: Malaise. Denies: Chills, Fever Eyes: Reports: Visual changes - bilaterally, Diplopia ENT: Reports: - - Left ear feeling echo-y all day this past day. Denies: Bilateral ear pain, Rhinorrhea, Sore throat Cardiovascular: Denies: Chest pain, Palpitations Respiratory: Denies: Dyspnea, Cough Gastrointestinal: Reports: Nausea, Vomiting. Denies: Abdominal pain, Diarrhea, Melena, Hematochezia Musculoskeletal: Denies: Myalgias, Back pain, Swelling, Extremity Pain Skin: Denies: Rash, Wounds Neurological: Reports: Weakness - All over, denies lateralizing symptoms. Denies: Headache, Numbness STROKE Vital Signs/Narrative: Vital Signs Temp Pulse BP Pulse Ox 10/09/20 02:50 97.1 F L 79 185/77 H 98 Inital Vital Signs reviewed: Yes - NIHSS Initial 1a Level of Consciousness: 1 1b LOC Questions (Score 2 if aphasic/stupor): 0 1c LOC Commands (Only score 1st attempt): 0 2 Best Gaze (If aphasic, use reflexive mvmts.): 0 3 Visual: 0 4 Facial Palsy: 0 5 Motor Arm Right (UN = amputation/fusion): 1 5 Motor Arm Left: 1 6 Motor Leg Right: 3 6 Motor Leg Left: 3 7 Limb ataxia (Only + if out of proportion): 0 8 Sensory (Aphasia/stupor=0 or 1, coma=2): 0 9 Best Language: 1 10 Dysarthria (mute, coma=2, intubated=UN): 0 11 Extinction and Inattention (only scored if +): 0 Total Score: 10 General: Well nourished, Well developed, Obese, - - Appears ill, no acute distress. Emesis bag next to her. Dried emesis on her close. Head: Normocephalic, Atraumatic Eyes: Perrl, EOMI ENT: Moist mucous membranes, No rhinorrhea, TM's clear, - - Unable to visualize posterior oropharynx, patient opens mouth very little and without pain Neck: Supple - Without meningismus, Nontender, No lymphadenopathy Cardiovascular: Regular rate, Regular rhythm, No murmurs Respiratory: No distress, CTA bilaterally, Chest nontender Abdomen: Soft, Nontender, Nondistended, Normal bowel sounds Back: Nontender, Normal Inspection Extremities: Nontender, No edema Skin: Normal color, No rash, No Trauma Neurological: Alert, Oriented x3, Cranial nerves II-XII grossly intact, Normal Sensation, Weakness - Diffusely, seems symmetric. Peripheral neurologic exam limited due to extreme generalized weakness and lack of effort to hold up extremities and move and not willing to keep her eyes open. Unable to perform [id number] and [id number] as a result. Psychological: - - Limited eval due to lethargy and appearing ill Diagnostic/Tx/Re-eval - Rhythm Strip Rhythm Strip: Sinus Rhythm Rate: 80 Ectopy: PAC(s) - EKG Initial EKG Interpretation: Sinus Rhythm, No Acute Injury Pattern, AV Block - 1st deg, - - PACs. - Medical Decision Making Stroke Team Activated: No Stroke team was not called due to significant difficulty performing stroke scale given patient's condition, uncertain time of onset, and given all of this, I am uncomfortable giving TPA to this patient. Additionally, her BUN is elevated with prerenal azotemia, her potassium is low, these suggest symptoms for longer than an hour or 2. Stroke is in the differential diagnosis, however with a negative CT scan, still would be unable to rule it out. We did obtain a stat CT, it is negative. Patient was given IV fluids and Zofran, I did not give her Ativan at this time because she is lethargic and I did not want to make her level of consciousness worse, and given that posterior circulation vascular conditions are in the differential diagnosis, since she has no pain I do not think she has dissection, we are holding off on p.o. medications for now. She did improve and was able to sleep without any further vomiting. Plan is for admission and further treatment and evaluation. ED Disposition - Plan for ED Patient: Disposition: Acute Care Hospital [facility] Diagnosis: Vertigo, Generalized weakness, Dehydration, Hypokalemia
[2020-10-09] MEDS: Ondansetron 4 MG/2 ML Vial IV (03:21)
[2020-10-09 03:22] LABS: Absolute Lymphocyte Count 3.46 X10^3/uL (0.83-4.51); Absolute Neutrophil Count 4.7 X10^3/uL (2.0-7.7); Basophil# 0.09 X10^3/uL; Basophil% 0.9 % (0-1); Eosinophil# 0.52 X10^3/uL; Eosinophils% 5.4 % (0-5); Hematocrit 37.7 % (37-47); Hemoglobin 11.8 g/dL (12.0-15.0); Lymphocyte # 3.46 X10^3/ul (4.0); Mean Corp Hgb Conc 31.3 g/dL (32-36); Mean Corpuscular Hgb 24.4 pg (27.0-32.0); Mean Corpuscular Volume 78.1 fL (81-99); Mean Platelet Vol. 9.7 fl (6.2-12.0); Monocyte# 0.86 X10^3/uL; NRBC Flagged by Analyzer 0 % (0-5); Neutrophil # 4.65 X10^3/uL (2.7-7.7); Neutrophil % 48.5 % (47-70); Platelet Count 376 K/mm3 (150-450); RBC Distribution Width CV 15.9 % (11.6-14.6); RBC Distribution Width SD 45.1 fl (35.1-43.9); Red Blood Count 4.83 M/mm3 (4.2-5.4); White Blood Count 9.6 K/mm3 (4.4-11.0)
[2020-10-09 03:36] LABS: Bacteria 0 SEEN /hpf (None Seen); Color, Urine Yellow (Yellow); Glucose, Dipstick 100 mg/dl (Normal); Ketone-Dipstick Negative (Negative); Leukocyte Esterase-Dipstick Negative /ul (Negative); Mucous, Urine 0 SEEN /hpf (<or=2+); Nitrite-Dipstick Negative (Negative); Occult Blood-Urine Negative /ul (Negative); Protein-Dipstick 30 mg/dl (Negative); Red Blood Cells-Urine 0 SEEN /hpf (0-5); Urine Bilirubin Dipstick Negative (Negative); Urine Clarity Clear (Clear); Urine Urobilinogen Normal (Normal); White Blood Cells 0 SEEN /hpf (0-5)
[2020-10-09 03:36] LABS: Anion Gap 12 (5-15); BUN 20 mg/dL (7-18); Calcium,Total 9.4 mg/dL (8.5-10.1); Chloride 100 mmol/L (98-107); Creatinine, Serum 0.95 mg/dL (0.55-1.02); EST Glomerular Filtration Rate 61 mL/min (>60); Est Glom Filt Rate - Afr Amer 74 mL/min (>60); Estimated Creatinine Clearance 44.28 ml/min; Glucose 164 mg/dL (74-106); Sodium Level 138 mmol/L (136-145)
--- NOTE | 2020-10-09 03:40 | RAD_ITS ---
STUDY: X-RAY CHEST REASON FOR EXAM: Female, 74 years old. Nausea vomiting and weakness. TECHNIQUE: AP COMPARISON: 09/07/2019 CXR FINDINGS: No evidence of pneumonia, pulmonary edema, pneumothorax or pleural effusion. Cardiac silhouette, hilar and mediastinal contours with no acute findings. Heart size normal. Atherosclerosis of the thoracic aorta. Degenerative osseous changes with no acute osseous abnormality. RAD/Chest 1 View (Portable) IMPRESSION: No acute findings. Electronically Signed: Mikey Noriega MD at 5:16 EST Tel , Service support ,
[2020-10-09 03:42] LABS: Squamous Epithelial Cells - UA 0-5 SEEN /hpf (5-10)
[2020-10-09] MEDS: Potassium Chloride 10mEq/100mL 10 MEQ/100 ML IV.SOLN. 100 MEQ IV BOLUS ×2 (04:19→11:24)
--- NOTE | 2020-10-09 04:56 | PCM.HP.STD ---
Problem List (1) Vertigo Status: Acute (2) Generalized weakness Status: Acute (3) Hypokalemia Status: Acute (4) Atherosclerosis of coronary artery of [place] heart without angina pectoris Status: Chronic Qualifiers: Coronary Disease-Associated Artery/Lesion type: unspecified vessel or lesion type Qualified Code(s): I25.10 - Atherosclerotic heart disease of [place] coronary artery without angina pectoris (5) Essential (primary) hypertension Status: Chronic (6) Hyperlipidemia Status: Chronic Qualifiers: Hyperlipidemia type: mixed hyperlipidemia Qualified Code(s): E78.2 - Mixed hyperlipidemia History of Present Illness Date of Admission: 10/09/20 Chief Complaint: Persistent nausea and vomiting The patient is a 74 year old F past medical history of CAD status post 2 stents, hypertension, hyperlipidemia, type II DM who comes in with complaints of severe onset of dizziness and intractable nausea and vomiting. Patient is a poor historian. She stated that she went to bed around 10 AM and woke up with severe dizziness, intractable nausea and vomiting. At the time of going to bed, she denied any complaints. She cannot tell me when she woke up this morning. Denied any diarrhea or sick contacts. No weakness or tingling numbness in her extremities. She is unable to open his eyes because of severe dizziness. She denies any tingling or ringing in the ears. Vitals in the ED showed temperature of 97.1F, heart rate of 79, blood pressure 185/77, respiratory rate was 14, SPO2 is 98% on room air. Admitting blood pressure WBC count is 9.6, hemoglobin 11.8, platelet count is 376. Sodium is 138, potassium 3.0, the right is 100, carbon dioxide 26, BUN is 20, creatinine 0.95, calcium is 9.4. UA is unremarkable except for urine glucose. Brain CT showed no acute intracranial findings. Chest x-ray showed no acute cardiopulmonary process. Past Medical History Past Medical History (Chronic Problems): Chronic Problems (Last Reviewed 05/19/20 @ 11:[address] Richard Gutierrez MD) Atherosclerosis of coronary artery of [place] heart without angina pectoris (Chronic) Non-ischemic cardiomyopathy (Chronic) Essential (primary) hypertension (Chronic) Hyperlipidemia (Chronic) Medical History: Medical History (Last Reviewed 05/19/20 @ 11:[address] Richard Gutierrez MD) Atherosclerosis of coronary artery of [place] heart without angina pectoris (Chronic) I25.10 Non-ischemic cardiomyopathy (Chronic) I42.8 Essential (primary) hypertension (Chronic) I10 Hyperlipidemia (Chronic) E78.5 GERD (gastroesophageal reflux disease) K21.9 Obesity E66.9 Type 2 diabetes mellitus E11.9 Abnormal nuclear stress test (Resolved) R94.39 Upper GI bleed K92.2 Allergies atorvastatin [From Lipitor] Allergy (Verified 10/09/20 03:01) myalgias Penicillins Allergy (Verified 10/09/20 03:01) Rash pravastatin Allergy (Verified 10/09/20 03:01) myalgias CAT SCAN DYE Allergy (Uncoded 10/09/20 03:01) Shortness of breath NON-PAPER TAPE Allergy (Uncoded 10/09/20 03:01) Unknown Home Medications: Ambulatory Orders Medication Instructions Recorded Aspirin [Aspirin, Baby] 81 mg PO DAILY 12/13/17 Benazepril HCl [Lotensin] 20 mg PO DAILY 12/13/17 Omeprazole 20 mg PO DAILY 12/13/17 Rosuvastatin Calcium [Crestor] 5 mg PO QHS 12/13/17 acetaminophen 500 mg tablet 1,000 mg PO Q8 PRN 12/18/17 insulin detemir U-100 100 unit/mL 40 unit SC BREAKFAST ml 05/19/19 (3 mL) subcutaneous pen insulin detemir U-100 100 unit/mL 48 unit SC QHS ml 05/19/19 (3 mL) subcutaneous pen metformin 500 mg tablet,extended 1,000 mg PO DINNER 01/26/20 release 24 hr paroxetine HCl 30 mg tablet 30 mg PO DAILY tab 01/26/20 ticagrelor 90 mg tablet 90 mg PO BID #180 tab 03/17/20 isosorbide dinitrate 10 mg tablet 10 mg PO TID #270 tab 06/08/20 Metoprolol Tartrate 50 mg PO BID 10/09/20 Surgical History: Surgical History (Last Reviewed 05/19/20 @ 11:[address] Richard Gutierrez MD) History of coronary artery stent placement (Resolved) Onset Date: 05/26/19 Z95.5 [id number] w/ Synery 2.50 x 38 mm Synergy MR and EMELYN-OM1 w/ 2.5 x 17 mm Elunir Stent 05/26/2019 H/O total hip arthroplasty Z96.649 History of bilateral hip replacements Z96.643 left- 05/14/17 Right- 09/2013 History of hysterectomy Z90.710 History of laminectomy Z98.890 lower back 11/2015 History of left heart catheterization Onset Date: 12/07/11 Z98.890 2003,2011 History of total bilateral knee replacement Z96.653 right- 11/2003 left- 05/2008 Hx of appendectomy Z90.49 Surgical History: appendectomy, hysterectomy, total hip arthroplasty, total knee arthroplasty, - - Status post laminectomy, left heart cath Psychiatric History: Depression 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 Richard Gutierrez MD) Father COPD (chronic obstructive pulmonary disease) Myocardial infarction Mother Diabetes CAD (coronary artery disease) Alzheimers disease CVA (cerebral vascular accident) Brother H/O angioplasty Diabetes Brother CVA (cerebral vascular accident) Son Diabetes History Items: Dementia, Heart Disease, Stroke Paternal Family History: Family History (Last Reviewed 05/19/20 @ 11:[address] Richard Gutierrez MD) Father COPD (chronic obstructive pulmonary disease) Myocardial infarction Mother Diabetes CAD (coronary artery disease) Alzheimers disease CVA (cerebral vascular accident) Brother H/O angioplasty Diabetes Brother CVA (cerebral vascular accident) Son Diabetes History Items: COPD, Heart Disease Review of Systems Constitutional: Reports: Anorexia, Malaise, Weakness, Fatigue. Denies: Chills, Fever, Weight Change Eyes: Reports: Blurred vision, Double vision. Denies: Cataracts, Conjunctivae Inflammation, Drainage, Eyelid Inflammation, Vision Change HEENT: Denies: Difficulty Hearing, Difficulty Swallowing, Head Aches, Hearing Changes, Sinus Congestion, Sinus Drainage, Sore Throat Cardiovascular: Reports: Light Headedness. Denies: Chest Pain, Claudication, Chest Pressure, Chest Tightness, Edema, Heaviness, Palpitations, Paroxysmal Noc. Dyspnea, Syncope Respiratory: Denies: Cough, Hemoptysis, Shortness of breath at rest, Shortness of breath upon exertion, Sputum production Gastrointestinal: Denies: Abdominal Pain, Constipation, Hematemesis, Hematochezia, Nausea, Vomiting Genitourinary: Denies: Dysuria, Frequency, Incontinence, Nocturia Gynecological: Denies: Breast symptoms, Excessively long or heavy periods, Vaginal discharge Musculoskeletal: Denies: Joint Pain, Joint stiffness, Joint swelling, Joint Tenderness Skin: Denies: Rash, Wounds Neurological: Reports: Blurred vision, Double vision. Denies: Difficulty swallowing, Focal weakness, Headaches, Numbness, Tingling, Seizures Psychiatric: Denies: Anxiety, Depression, Homicidal Ideations, Suicidal Ideations Hematologic/ Lymphatic: Denies: Easy Bruising, Easy Bleeding VTE Information - Inpt Only VTE Present on Admission: No VTE Pharm Prophylaxis ordered?: Yes Patient Problems: Active and Suspected Problems (Last Reviewed 05/19/20 @ 11:[address] Richard Gutierrez MD) Vertigo (Acute) Generalized weakness (Acute) Dehydration (Acute) Hypokalemia (Acute) - Physical Exam Vitals/I&O's: Vital Signs Temp Pulse Resp BP Pulse Ox 97.1 F L 78 14 197/89 H 98 10/09/20 04:46 10/09/20 04:46 10/09/20 04:46 10/09/20 04:46 10/09/20 04:46 Oxygen Delivery Method Room Air Weight: 99.065 kg Body Mass Index (BMI) 38.7 Finger Stick Blood Glucose 232 General: Alert, Oriented x3, Cooperative, No apparent distress, - - appears very unwell, not pale, not jaundiced HEENT: Atraumatic, PERRLA, EOMI, Normocephalic Oral: Moist Mucosa Neck: Supple Lungs: Clear to auscultation, Normal air movement Cardiovascular: Regular rate, Regular Rhythm, Normal S1, Normal S2, No murmurs Abdomen: Bowel Sounds Present, Soft, Non Tender, Non-Distended, No Hepato-splenomegaly Extremities: No edema Skin: No rashes Musculoskeletal: No Tenderness to Palpation of Joints or Extremities Lymphatic: No Cervical, Supraclavicular, or Inguinal Adenopathy Neurological: - - Bilateral horizontal nystagmus with rotatory component seen Power in the upper and lower extremities are 5/5 Changes in severe discomfort from persistent dizziness and nausea and cannot fully partake in neuro exam Psych/Mental Status: Normal Affect, Appropriate Laboratory Results 10/09/20 03:00: WBC 9.6, RBC 4.83, Hgb 11.8 L, Hct 37.7, MCV 78.1 L, MCH 24.4 L, MCHC 31.3 L, RDW Std Deviation 45.1 H, RDW Coeff of Sridhar 15.9 H, Plt Count 376, MPV 9.7, Immature Gran % (Auto) 0.200, Neut % (Auto) 48.5, Lymph % (Auto) 36.0, Vance % (Auto) 9.0, Eos % (Auto) 5.4 H, Baso % (Auto) 0.9, Absolute Neuts (auto) 4.7, Absolute Lymphs (auto) 3.46, Nucleated RBC % 0 10/09/20 03:00: Sodium 138, Potassium 3.0 L, Chloride 100, Carbon Dioxide 26.0, Anion Gap 12, BUN 20 H, Creatinine 0.95, Estim Creat Clear Calc 44.28, Est GFR (MDRD) Af Amer 74, Est GFR (MDRD) Non-Af 61, BUN/Creatinine Ratio 21.0 H, Glucose 164 H, Calcium 9.4, Troponin I < 0.015 10/09/20 03:30: Urine Color Yellow, Urine Clarity Clear, Urine pH 7.0, Ur Specific [place] 1.010, Urine Protein 30 H, Urine Glucose (UA) 100 H, Urine Ketones Negative, Urine Occult Blood Negative, Urine Nitrite Negative, Urine Bilirubin Negative, Urine Urobilinogen Normal, Ur Leukocyte Esterase Negative, Urine RBC 0 SEEN, Urine WBC 0 SEEN, Ur Squamous Epith Cells 0-5 SEEN, Urine Bacteria 0 SEEN, Urine Mucus 0 SEEN Assessment/Plan All Active Problems (Last Reviewed 05/19/20 @ 11:[address] Richard Gutierrez MD) Vertigo (Acute) Generalized weakness (Acute) Dehydration (Acute) Hypokalemia (Acute) History of coronary artery stent placement (Resolved 05/26/19) Abnormal Heart Score CT (Resolved) Abnormal nuclear stress test (Resolved) Chest pain (Resolved) Debility (Resolved) Inability to ambulate due to hip (Resolved) 1. Acute onset of vertigo concerning for possible acute posterior stroke CT Head is negative for acute bleed. Admit to PCU, stroke work-up, MRI, 2D echo, IV fluids, IV emetics, aspirin, statin, continue on Brilinta PT/OT/ST to evaluate and treat per protocol 2. Hypokalemia secondary to intractable nausea and vomiting, replaced, Will check magnesium 3. Hypertension, uncontrolled, will allow for permissive hypertension 3. CAD/nonischemic cardiomyopathy/hyperlipidemia Continue on aspirin, statin, Brilinta, Hold metoprolol, isosorbide allow for permissive hypertension in the event of acute stroke 4. Type II DM, insulin-dependent, continue with insulin regimen Hold Metformin 5. GERD, continue on PPI 6. DVT prophylaxis?heparin subcu OBSV E&M: [id number] Initial observation care L3
[2020-10-09] MEDS: Metoclopramide 10 MG/2 ML Vial 5 MG IV (05:09)
--- NOTE | 2020-10-09 06:48 | MRI_ITS ---
STUDY: MRI BRAIN WITHOUT CONTRAST REASON FOR EXAM: Female, 74 years old. neuro TECHNIQUE: Standardized multiplanar fat and water weighted pulse sequences were obtained. COMPARISON: CT 10/09/2019, MRI 06/02/2015 FINDINGS: There is mild cerebral atrophy with widening of the extra-axial spaces and ventricular dilatation. There are a limited number of small white matter hyperintensities, distributed throughout the deep white matter tracts of the cerebral hemispheres, consistent with mild chronic white matter ischemic changes. There is no evidence for recent intracranial ischemia or other cause of cytotoxic edema on diffusion weighted imaging (DWI). Normal T2* images of the brain without demonstrated susceptibility artifact. There is no demonstrated hemosiderin stain. Normal bilateral basal ganglia. Normal thalami. There is no extra-axial fluid accumulation. Normal flow voids within the major intracranial circulation suggesting patency by spin echo criteria. Normal sella turcica, pituitary gland, infundibular stalk, optic chiasm and hypothalamus. Normal tectal plate and pineal gland. Normal midbrain, emory and medulla. Normal cerebellum. Normal basal cisterns. Normal bilateral temporal bones. Normal bilateral internal auditory canals. No demonstrated orbital abnormality, within the constraints of a routine brain study. Normal visualized paranasal sinuses. Normal calvarium and skull base. Normal visualized soft tissue structures. Normal visualized upper cervical spine. MRI/Brain without Contrast IMPRESSION: Involutional changes of the brain, as described above. No acute infarct. Electronically Signed: Logan De Jesus MD at 13:27 EST Tel , Service support ,
--- NOTE | 2020-10-09 06:48 | ECHOD_ITS ---
Reason For Study: verttigo, CAD/ASHD Procedure This was a 2D Doppler, Color Flow transthoracic echocardiogram. The study was technically difficult. Exam performed portable in patient room. Left Ventricle Normal LV size. Mild concentric left ventricular hypertrophy. Left ventricular systolic function is normal. The estimated ejection fraction is 65 %. Stage 1 diastolic dysfunction. No regional wall motion abnormalities noted. Right Ventricle Normal RV size. Normal systolic function. Atria Normal left atrium. Normal right atrium. Mitral Valve Normal mitral valve. Tricuspid Valve Normal tricuspid valve. Aortic Valve Normal aortic valve. Trisinus/trileaflet aortic valve. Pulmonic Valve Normal pulmonic valve. Great Vessels Normal aortic root. The pulmonary artery is normal size. Normal inferior vena cava. Pericardium/Pleural No pericardial effusion. MMode/2D Measurements & Calculations LVIDd: 3.5 cm IVSd: 1.2 cm LAV(MOD-bp): 41.9 ml LVIDs: 2.3 cm LVPWd: 1.2 cm LAV(MOD-bp) Indexed: 21.2 ml/m2 RVDd: 2.6 cm FS: 33.2 % LAV(MOD-sp2): 40.6 ml LAV(MOD-sp4): 42.1 ml LA dimension(2D): 3.5 cm LA A4 area: 16.0 cm2 RA A4 area: 10.4 cm2 Doppler Measurements & Calculations MV E max nazario: 58.0 cm/sec Lat Peak E' Nazario: 5.2 cm/sec Med Peak E' Nazario: 5.5 cm/sec MV A max nazario: 107.8 cm/sec E/E' lat: 11.2 E/E' med: 10.5 MV E/A: 0.54 Ao V2 max: 158.4 cm/sec LV V1 max: 101.2 cm/sec PA V2 max: 93.2 cm/sec Ao max P.0 mmHg LV V1 max P.1 mmHg Interpretation Summary Normal LV size. Left ventricular systolic function is normal. The estimated ejection fraction is 65 %. Mild concentric left ventricular hypertrophy. Stage 1 diastolic dysfunction. Ordering Physician: Marly Hartley Referring Physician: Lisa Gamble Performed By: Latesha Carpenter, DAHIANA, RVT
[2020-10-09 07:01] LABS: Magnesium 2.1 mg/dL (1.6-2.6)
[2020-10-09] MEDS: 0.9% Normal Saline 1,000 ML 75 ML IV (11:21)
[2020-10-09] MEDS: Heparin Injection (Vial) 5,000 UNIT/ML VIAL 5000 UNIT SC ×2 (11:22→21:25)
[2020-10-09] MEDS: Isosorbide DN 10 MG Tablet PO ×2 (11:22→21:25)
[2020-10-09] MEDS: Aspirin 81 MG TAB.CHEW PO (11:22)
[2020-10-09] MEDS: TICAGRELOR 90 MG TABLET PO ×2 (11:24→21:25)
[2020-10-09] MEDS: PARoxetine 10 MG Tablet 30 MG PO (11:25)
[2020-10-09] MEDS: Pantoprazole Sodium 20 MG Tablet PO (11:25)
[2020-10-09 11:50] LABS: Bedside Glucose 212 mg/dL (70-110)
--- NOTE | 2020-10-09 12:33 | PCM.PN.BLA ---
Progress Note Patient was seen and examined. She was admitted for acute onset vertigo concerning for posterior circulation stroke. This morning, she is still having significant dizziness, described as unsteadiness and sometimes spinning. Still complains of nausea and vomiting. Denied slurred speech or blurred vision. Denied focal arm or leg weakness. She does have nystagmus on physical examination. Routine blood work and CT scan brain reviewed. Blood pressure is elevated, other vital signs are stable. She is on aspirin and Brilinta. EKG was unremarkable. Plan for MRI today, 2D echocardiogram. STROKE Vital Signs/Narrative: Vital Signs Temp Pulse Resp BP Pulse Ox 10/09/20 09:01 97.7 F L 79 16 153/74 H 98
[2020-10-09] MEDS: Insulin Lispro 100 UNIT/ML INSULN.PEN SC ×2 (17:11→21:26)
[2020-10-09 17:25] LABS: Bedside Glucose 226 mg/dL (70-110)
[2020-10-09] MEDS: Rosuvastatin Calcium 5 MG Tablet PO (21:25)
[2020-10-09 21:40] LABS: Bedside Glucose 260 mg/dL (70-110)
--- NOTE | 2020-10-09 23:31 | PCS.PANDOC ---
PANDEMIC DOCUMENTATION INITIATED: Date: 10/09/2020 Time: 45
[2020-10-10 03:00] VITALS: PULSE 92
[2020-10-10 03:20] VITALS: BP 147/88; PULSE 85; RESP 19; TEMP 36.2; O2SAT 97
[2020-10-10 05:22] VITALS: BP 125/59; PULSE 72
[2020-10-10] MEDS: Isosorbide DN 10 MG Tablet PO ×2 (05:22→16:51)
[2020-10-10] MEDS: Heparin Injection (Vial) 5,000 UNIT/ML VIAL 5000 UNIT SC ×2 (05:22→16:50)
[2020-10-10 06:23] LABS: Absolute Lymphocyte Count 1.36 X10^3/uL (0.83-4.51); Absolute Neutrophil Count 3.8 X10^3/uL (2.0-7.7); Basophil# 0.04 X10^3/uL; Basophil% 0.7 % (0-1); Eosinophil# 0.21 X10^3/uL; Eosinophils% 3.6 % (0-5); Hematocrit 35.6 % (37-47); Lymphocyte # 1.36 X10^3/ul (4.0); Lymphocyte % 23.1 % (19-41); Mean Corp Hgb Conc 30.9 g/dL (32-36); Mean Corpuscular Hgb 24.6 pg (27.0-32.0); Mean Corpuscular Volume 79.6 fL (81-99); Mean Platelet Vol. 9.4 fl (6.2-12.0); Monocyte# 0.45 X10^3/uL; Monocyte% 7.6 % (0-10); NRBC Flagged by Analyzer 0 % (0-5); Neutrophil # 3.82 X10^3/uL (2.7-7.7); Neutrophil % 64.8 % (47-70); Platelet Count 343 K/mm3 (150-450); RBC Distribution Width SD 46.2 fl (35.1-43.9); Red Blood Count 4.47 M/mm3 (4.2-5.4); White Blood Count 5.9 K/mm3 (4.4-11.0)
[2020-10-10 06:52] LABS: ALB/GLOB Ratio 0.9 RATIO (0.9-2.4); AST(SGOT) 18 U/L (15-37); Alanine Aminotransfer ALT/SGPT 20 U/L (13-56); Albumin, Serum 3.4 g/dL (3.2-5.0); Alkaline Phosphatase 90 U/L (45-117); Anion Gap 5 (5-15); BUN 18 mg/dL (7-18); Calcium,Total 8.7 mg/dL (8.5-10.1); Chloride 103 mmol/L (98-107); Cholesterol 120 mg/dL (200); Creatinine, Serum 0.82 mg/dL (0.55-1.02); EST Glomerular Filtration Rate 73 mL/min (>60); Est Glom Filt Rate - Afr Amer 88 mL/min (>60); Globulin 3.6 g/dL (2.2-4.2); Glucose 162 mg/dL (74-106); High Density Lipoprotein 49 mg/dL; Potassium 4.2 mmol/L (3.5-5.1); Sodium Level 136 mmol/L (136-145); Triglycerides 117 mg/dL; Very Low Density Lipoprotein 23 mg/dL (5-40)
[2020-10-10] MEDS: Insulin Lispro 100 UNIT/ML INSULN.PEN SC ×2 (06:58→13:15)
[2020-10-10 07:00] VITALS: PULSE 88
[2020-10-10 07:06] LABS: Bedside Glucose 171 mg/dL (70-110)
[2020-10-10 08:00] VITALS: O2SAT 91
[2020-10-10 08:58] VITALS: BP 141/69; PULSE 98; RESP 18; TEMP 36.7; O2SAT 97
[2020-10-10] MEDS: Aspirin 81 MG TAB.CHEW PO (09:03)
[2020-10-10] MEDS: PARoxetine 10 MG Tablet 30 MG PO (09:03)
[2020-10-10] MEDS: Pantoprazole Sodium 20 MG Tablet PO (09:03)
[2020-10-10] MEDS: TICAGRELOR 90 MG TABLET PO (09:03)
[2020-10-10 13:25] LABS: Bedside Glucose 252 mg/dL (70-110)
--- NOTE | 2020-10-10 16:37 | PCM.DC ---
- Discharge Diagnoses Current Active Problems: Current Active and Chronic Problems (Last Reviewed 05/19/20 @ 11:[address] Richard Gutierrez MD) Vertigo (Acute) Generalized weakness (Acute) Dehydration (Acute) Hypokalemia (Acute) Atherosclerosis of coronary artery of [place] heart without angina pectoris (Chronic) Non-ischemic cardiomyopathy (Chronic) Essential (primary) hypertension (Chronic) Hyperlipidemia (Chronic) You will use the following diet at home:: Calorie/Carbohydrate Controlled (specify 1200, 1400, etc) Your food should be the consistency of: Regular Your liquids should be the consistency of: Regular/Thin Discharge Activity: Return to Normal Activity Allergies/Adverse Reactions: Allergies atorvastatin [From Lipitor] Allergy (Verified 10/09/20 03:01) myalgias Penicillins Allergy (Verified 10/09/20 03:01) Rash pravastatin Allergy (Verified 10/09/20 03:01) myalgias CAT SCAN DYE Allergy (Uncoded 10/09/20 03:01) Shortness of breath NON-PAPER TAPE Allergy (Uncoded 10/09/20 03:01) Unknown Medications to take at Discharge Aspirin [Aspirin, Baby] 81 mg PO DAILY 12/13/17 Benazepril HCl [Lotensin] 20 mg PO DAILY 12/13/17 Omeprazole 20 mg PO DAILY 12/13/17 Rosuvastatin Calcium [Crestor] 5 mg PO QHS 12/13/17 acetaminophen 500 mg tablet 1,000 mg PO Q8 PRN 12/18/17 insulin detemir U-100 100 unit/mL (3 mL) subcutaneous pen 40 unit SC BREAKFAST ml 05/19/19 insulin detemir U-100 100 unit/mL (3 mL) subcutaneous pen 48 unit SC QHS ml 05/19/19 metformin 500 mg tablet,extended release 24 hr 1,000 mg PO DINNER 01/26/20 paroxetine HCl 30 mg tablet 30 mg PO DAILY tab 01/26/20 ticagrelor 90 mg tablet 90 mg PO BID #180 tab 03/17/20 isosorbide dinitrate 10 mg tablet 10 mg PO TID #270 tab 06/08/20 Metoprolol Tartrate 50 mg PO BID 10/09/20 Primary Care Physician: Lisa Gamble DO [Primary Care Provider] - Please follow up with your Primary Care Physician in: 1-2 weeks Test Results: Test results from this visit will be discussed in further detail at your follow-up appointment, if applicable. Please Follow Up With: Gee David MD When: Schedule appointment for as soon as can be seen-diagnosis peripheral vertig
--- NOTE | 2020-10-10 16:43 | PCM.DC.SUM ---
Discharge Date and Diagnosis - Problem List Patient Problems: Active and Suspected Problems (Last Reviewed 05/19/20 @ 11:[address] Richard Gutierrez MD) Vertigo (Acute) Generalized weakness (Acute) Dehydration (Acute) Hypokalemia (Acute) Date of Admission: 10/09/20 Date of Discharge: 10/10/20 - Primary Discharge Diagnosis Acute Problems: Active Problems (Last Reviewed 05/19/20 @ 11:[address] Richard Gutierrez MD) Vertigo (Acute) Generalized weakness (Acute) Dehydration (Acute) Hypokalemia (Acute) - Secondary Discharge Diagnosis Chronic Problems: Chronic Problems (Last Reviewed 05/19/20 @ 11:[address] Richard Gutierrez MD) Atherosclerosis of coronary artery of [place] heart without angina pectoris (Chronic) Non-ischemic cardiomyopathy (Chronic) Essential (primary) hypertension (Chronic) Hyperlipidemia (Chronic) Hospital Course and Treatment Imaging Results: MRI brain 10/09/2020 -Involutional changes of brain, no acute infarct Echocardiogram 10/10/2020 LV size normal, EF 65%, mild concentric LVH, stage I diastolic dysfunction Operations: None Procedures: 2-D Echocardiogram Summary of Care Provided: Ms. Herrera is a 74 year old F who presented to the emergency department on 10/09/2020 with persistent nausea and vomiting secondary to vertiginous symptoms. The patient states she went to bed approximately 10 that evening and woke up at approximately midnight with marked dizziness as this room was spinning, intractable nausea and vomiting. She states this happened approximately a year ago as well with this very same symptoms and same timing. She was was given no explanation for her symptoms. She had a CT done in the emergency department of her brain and it was unremarkable. Her lab work and vitals were overall unimpressive other than mild hypokalemia. She had an MRI of her brain which was negative. An echo was done as well and showed an EF of 65% with mild concentric LVH and stage I diastolic dysfunction. At this time her symptoms have completely resolved and she states that they lasted approximately only 6 hours and she had no issues since. She also reports that this is approximately the same pattern that occurred with her previous episode. I suspect that this is peripheral vertigo at this point. She will be given Antivert but I suspect since these episodes are waking her from sleep she will not be able to take this prior to symptoms occurring. If this occurs again one could consider CTA versus MRA of the brain. I will have her follow-up with ear nose and throat. She is already taking aspirin and Brilinta at baseline we will continue this. Continue medical management for all other issues. Prescription for Antivert sent to pharmacy. Discharge diagnoses Vertigo-suspected peripheral Nausea and vomiting-resolved Hypokalemia-resolved CAD Hypertension Hyperlipidemia DM-2 GERD Depression Obesity Discharge time greater than 35 minutes Patient Problems: Active and Suspected Problems (Last Reviewed 05/19/20 @ 11:[address] Richard Gutierrez MD) Vertigo (Acute) Generalized weakness (Acute) Dehydration (Acute) Hypokalemia (Acute) Subjective: Patient states her symptoms are completely resolved. She is able to eat and drink without any issue. She said no other symptoms associated. She is anxious to go home. - Physical Exam Vitals/I&O's: Vital Signs Temp Pulse Resp BP Pulse Ox 98.1 F 98 18 141/69 H 97 10/10/20 08:58 10/10/20 08:58 10/10/20 08:58 10/10/20 08:58 10/10/20 08:58 Oxygen Delivery Method Room Air Weight: 96.3 kg Body Mass Index (BMI) 37.5 Finger Stick Blood Glucose 232 Intake and Output for Last 24 Hours 10/08/20 10/09/20 10/10/20 23:59 23:59 23:59 Intake Total 1060 / 1060 1120 / 1120 Output Total 350 / 350 Balance 710 / 710 1120 / 1120 General: Alert, Oriented x3, Cooperative, No apparent distress, Well developed, Well nourished, - - Older white female, sitting up in a chair, eating lunch HEENT: Atraumatic, PERRLA, EOMI, Normocephalic, EAC Clear Oral: Moist Mucosa, No Gingival or Mucosal Lesions/ Ulcerations Neck: Supple, No JVD, Trachea Midline, Thyroid Normal Size and Texture Lungs: Clear to auscultation, Normal air movement, No rhonchi, No wheeze, No rales Cardiovascular: Regular rate, Regular Rhythm, Normal S1, Normal S2, No murmurs, No Ectopic Activity, No rub noted, No Gallop Abdomen: Bowel Sounds Present, Soft, Non Tender, Non-Distended, Obese Extremities: No clubbing, No cyanosis, No edema, Capillary Refill Less than 3 Seconds, Peripheral Pulses Normal Skin: No rashes, No breakdown Musculoskeletal: No Tenderness to Palpation of Joints or Extremities, No Muscle Wasting, Arthritic Changes Neurological: Cranial nerves II-XII grossly intact, Deep Tendon Reflexes 2+/4 and Symmetrical, Neuro grossly intact, Motor Exam 5/5 strength throughout, Muscle tone normal, Sensory exam intact to light touch and pain, Coordination normal Psych/Mental Status: Normal Affect, Appropriate Laboratory Results 10/09/20 17:08: POC Glucose 226 H 10/09/20 21:23: POC Glucose 260 H 10/10/20 06:15: WBC 5.9, RBC 4.47, Hgb 11.0 L, Hct 35.6 L, MCV 79.6 L, MCH 24.6 L, MCHC 30.9 L, RDW Std Deviation 46.2 H, RDW Coeff of Sridhar 16.0 H, Plt Count 343, MPV 9.4, Immature Gran % (Auto) 0.200, Neut % (Auto) 64.8, Lymph % (Auto) 23.1, [place] % (Auto) 7.6, Eos % (Auto) 3.6, Baso % (Auto) 0.7, Absolute Neuts (auto) 3.8, Absolute Lymphs (auto) 1.36, Nucleated RBC % 0 10/10/20 06:15: Sodium 136, Potassium 4.2, Chloride 103, Carbon Dioxide 28.0, Anion Gap 5, BUN 18, Creatinine 0.82, Estim Creat Clear Calc 51.30, Est GFR (MDRD) Af Amer 88, Est GFR (MDRD) Non-Af 73, BUN/Creatinine Ratio 22.0 H, Glucose 162 H, Calcium 8.7, Total Bilirubin 0.70, AST 18, ALT 20, Alkaline Phosphatase 90, Total Protein 7.0, Albumin 3.4, Globulin 3.6, Albumin/Globulin Ratio 0.9, Triglycerides 117, Cholesterol 120, LDL Cholesterol 48, VLDL Cholesterol 23, HDL Cholesterol 49 10/10/20 06:57: POC Glucose 171 H 10/10/20 13:05: POC Glucose 252 H Current Medications Acetaminophen (Acetaminophen 500 Mg Tablet) 1,000 mg PO Q8H PRN PRN PRN Reason: pain 1-10 Albuterol Sulfate (Albuterol 2.5 Mg/3 Ml Vial.Neb.) 2.5 mg INHALATION Q2H PRN PRN PRN Reason: SOB/Wheezing Aspirin ([facility] 81 Mg [facility].Chew) [facility] Admin: 10/10/20 09:03 Dose: 81 mg Documented by: Heparin Sodium (Porcine) (Heparin Injection (Vial) 5,000 Unit/Ml Vial) 5,000 unit SC Q8 [facility] Last Admin: 10/10/20 05:22 Dose: 5,000 unit Documented by: Hydralazine HCl (Hydralazine 20 Mg/Ml Vial) 5 mg IV Q30M PRN PRN Reason: to maintain BP goals Sodium Chloride () 250 mls @ 15 mls/hr IV .[id number] PRN PRN Reason: Saline Flush Sodium Chloride () 250 mls @ 15 mls/hr IV .[id number] PRN PRN Reason: Additional IVPB Infusion Insulin Glargine (Insulin Glargine 100 Units/Ml Pen) 48 units SC QHS [facility] Last Admin: 10/09/20 21:26 Dose: 48 units Documented by: Insulin Glargine (Insulin Glargine 100 Units/Ml Pen) 40 units SC BREAKFAST [facility] Last Admin: 10/10/20 09:02 Dose: 40 units Documented by: Insulin Human Lispro (Insulin Lispro 100 Unit/Ml Insuln.Pen) 0 unit SC ACHS [facility]; Protocol Last Admin: 10/10/20 13:15 Dose: 2 units Documented by: Isosorbide Dinitrate (Isosorbide Dn 10 Mg Tablet) 10 mg PO TID [facility] Last Admin: 10/10/20 05:22 Dose: 10 mg Documented by: Labetalol HCl (Labetalol (Prefilled) 20 Mg/4 Ml) 10 - 20 mg IV Q10M PRN PRN PRN Reason: to Maintain BP Goals Magnesium Hydroxide (Magnesium Hydroxide 30 Ml Udc) 30 ml PO DAILY PRN PRN PRN Reason: Constipation Meclizine HCl (Meclizine Hcl 25 Mg Tablet) 25 mg PO TID PRN PRN PRN Reason: VERTIGO Ondansetron HCl (Ondansetron 4 Mg/2 Ml Vial) 4 mg IV Q8H PRN PRN PRN Reason: NAUSEA/VOMITING Pantoprazole Sodium (Pantoprazole Sodium 20 Mg Tablet) 20 mg PO DAILY [facility] Last Admin: 10/10/20 09:03 Dose: 20 mg Documented by: Paroxetine HCl (Paroxetine 10 Mg Tablet) 30 mg PO DAILY [facility] Last Admin: 10/10/20 09:03 Dose: 30 mg Documented by: Rosuvastatin Calcium (Rosuvastatin Calcium 5 Mg Tablet) 5 mg PO QHS [facility] Last Admin: 10/09/20 21:25 Dose: 5 mg Documented by: Senna/Docusate Sodium (Senna/Docusate Sodium 1 Tablet) 2 tablet PO BID PRN PRN PRN Reason: Constipation Sodium Chloride (0.9% Saline Lock 10 Ml Syringe) 10 - 40 ml IV UD PRN PRN Reason: SALINE FLUSH Ticagrelor (Ticagrelor 90 Mg Tablet) 90 mg PO BID [facility] Last Admin: 10/10/20 09:03 Dose: 90 mg Documented by: Discharge Activity: Return to Normal Activity Home Medications: Medications to take at Discharge Aspirin [Aspirin, Baby] 81 mg PO DAILY 12/13/17 Benazepril HCl [Lotensin] 20 mg PO DAILY 12/13/17 Omeprazole 20 mg PO DAILY 12/13/17 Rosuvastatin Calcium [Crestor] 5 mg PO QHS 12/13/17 acetaminophen 500 mg tablet 1,000 mg PO Q8 PRN 12/18/17 insulin detemir U-100 100 unit/mL (3 mL) subcutaneous pen 40 unit SC BREAKFAST ml 05/19/19 insulin detemir U-100 100 unit/mL (3 mL) subcutaneous pen 48 unit SC QHS ml 05/19/19 metformin 500 mg tablet,extended release 24 hr 1,000 mg PO DINNER 01/26/20 paroxetine HCl 30 mg tablet 30 mg PO DAILY tab 01/26/20 ticagrelor 90 mg tablet 90 mg PO BID #180 tab 03/17/20 isosorbide dinitrate 10 mg tablet 10 mg PO TID #270 tab 06/08/20 Metoprolol Tartrate 50 mg PO BID 10/09/20 Meclizine HCl 25 mg PO 4X/DAY PRN PRN #20 tab.chew 10/10/20 Following Prescriptions Were Given to Patient: Meclizine HCl 25 mg PO 4X/DAY PRN PRN #20 tab.chew PRN Reason: Vertigo Transmission Status: Pending to [facility] [place] [address] Primary Care Physician: Lisa Gamble DO [Primary Care Provider] - Please follow up with your Primary Care Physician in: 1-2 weeks Please Follow Up With: Gee David MD When: Schedule appointment for as soon as can be seen-diagnosis peripheral vertig Medical Necessity - Tobacco Use Smoking Status: Never smoker Tobacco Use: Non-smoker Meaningful Use Info Meaningful Use Diagnoses (Choose all that apply): None applicable Inpatient E&M: [id number] [facility]
[2020-10-10 17:01] LABS: Bedside Glucose 134 mg/dL (70-110)
== END 2020-10-10 16:39 | disposition home or self-care (01) ==
LOC: ED 03:54 → PCU 04:56
PROVIDERS: Hospitalist; Admitting Provider Internal Medicine; Emergency Provider Emergency Medicine; PCP Family Medicine; Visit Provider Internal Medicine
DX: E86.0 Dehydration (principal); R42 Dizziness and giddiness; E87.6 Hypokalemia; I42.8 Other cardiomyopathies; I10 Essential (primary) hypertension; I25.10 Atherosclerotic heart disease of native coronary artery without angina pectoris; Z79.899 Other long term (current) drug therapy; Z79.4 Long term (current) use of insulin; Z79.82 Long term (current) use of aspirin; Z95.5 Presence of coronary angioplasty implant and graft; E78.2 Mixed hyperlipidemia; K21.9 Gastro-esophageal reflux disease without esophagitis; E66.9 Obesity, unspecified; F32.9 Major depressive disorder, single episode, unspecified; Z68.38 Body mass index [BMI] 38.0-38.9, adult; E11.9 Type 2 diabetes mellitus without complications
CPT/HCPCS: 70450; 70551; 71045; 80048; 80053; 80061; 81001; 82962; 83735; 84484; 85025; 92610; 93005; 93306; 94762; 96361; 96372; 96374; 96375; 97161; 97165; 97802; 99218; 99251; 99285; J7030; J7050; A4216; G0378; G0463; J2405

== ENCOUNTER 2020-12-01 06:51 | Outpatient (RCR) | payer MEDICARE, OTHER, SELFPAY ==
[2019-05-26 10:53] VITALS: BMI 38.9
[2020-10-09 06:50] VITALS: BMI 37.5
[2020-12-01] MEDS: COVID-19 VACC, MRNA(PFIZER)/PF 30 MCG/0.3 ML SYRINGE IM (10:13)
[2020-12-22] MEDS: COVID-19 VACC, MRNA(PFIZER)/PF 30 MCG/0.3 ML SYRINGE IM (10:07)
== END 2020-12-01 23:59 ==
LOC: IMMUN 06:51
PROVIDERS: PCP Family Medicine; Visit Provider Family Medicine
DX: Z23 Encounter for immunization (principal)
CPT/HCPCS: 0001A; 0002A

== ENCOUNTER → 2021-01-30 10:55 | Outpatient (CLI) | payer MEDICARE, OTHER, SELFPAY ==
[2019-05-26 10:53] VITALS: BMI 38.9
[2020-10-09 06:50] VITALS: BMI 37.5
[2021-01-18 08:56] VITALS: BMI 37.9
--- NOTE | 2021-01-30 10:57 | BI_ITS ---
MAMMOGRAPHY - BILATERAL SCREENING REASON FOR EXAM: Female, 75 years old. Routine annual screening examination. PERTINENT HISTORY: Non-contributory. History of remote left breast aspiration. TECHNIQUE: Digital bilateral breast edmund (3D mammographic acquisition) in the CC and MLO projections. 2-D mediolateral oblique (MLO) and craniocaudad (CC) views of both breasts were obtained. CAD: Full Field Digital Mammography with Computer Added Detection was performed. COMPARISON: Comparison is made with prior examination of 12/08/2019 and 11/21/2018. FINDINGS: Breast Composition: There are scattered areas of fibroglandular density. There are no dominant masses or suspicious calcifications. Stable asymmetry of breast tissue with more breast tissue is seen in the anterior upper outer aspect of the right breast as compared to the left side. No other significant abnormalities are identified. There has been no significant change since the prior study. BI/SCRN MAMM (CAD)W/EDMUND BILAT IMPRESSION: Stable bilateral screening mammogram. Yearly follow-up mammogram recommended. (A) ASSESSMENT CATEGORY: BIRADS Category 2: Benign. A letter regarding these results will be sent to the patient by the facility within 30 days. Approximately 10% of breast cancers are not detected by mammography. A normal mammogram should not delay biopsy of a clinically suspicious abnormality. [id number] Electronically Signed: Shubham Patel MD at 12:10 EDT , Service support ,
== END ==
PROVIDERS: PCP Family Medicine; Referring Provider Family Medicine; Visit Provider Family Medicine
DX: Z12.31 Encounter for screening mammogram for malignant neoplasm of breast (principal)
CPT/HCPCS: 77063; 77067

== ENCOUNTER → 2021-04-26 08:26 | Outpatient (CLI) | payer MEDICARE, OTHER, SELFPAY ==
[2019-05-26 10:53] VITALS: BMI 38.9
[2021-01-18 08:56] VITALS: BMI 37.9
--- NOTE | 2021-04-26 08:43 | RAD_ITS ---
STUDY: X-RAY - ESOPHAGUS (BARIUM SWALLOW) WITH FLUOROSCOPY REASON FOR EXAM: Female, 75 years old. DYSPHAGIA TECHNIQUE: 14 view(s) of the esophagus were obtained following swallowing of barium. FLUOROSCOPY TIME (if supplied): (27 seconds) minutes/seconds COMPARISON: None. FINDINGS: There is no demonstrated esophageal foreign body. There is no demonstrated stricture or mucosal abnormality. Normal gastroesophageal junction, without a demonstrated hiatal hernia. The patient ingested a 12 mm tablet of barium without any difficulty. There is atherosclerotic tortuosity of the aortic arch and descending thoracic aorta. Normal visualized pulmonary parenchyma. Normal visualized osseous structures of the thorax. RAD/Esophagus Dual Contrast IMPRESSION: Normal plain film x-ray examination (barium swallow) of the esophagus. Electronically Signed: Shubham Patel MD at 14:47 EDT , Service support ,
== END ==
PROVIDERS: PCP Family Medicine; Referring Provider Family Medicine; Visit Provider Family Medicine
DX: R13.10 Dysphagia, unspecified (principal)
CPT/HCPCS: 74221

== ENCOUNTER → 2021-09-25 | Outpatient (CLI) | payer MEDICARE, OTHER, SELFPAY ==
[2019-05-26 10:53] VITALS: BMI 38.9
== END | disposition home or self-care (01) ==
LOC: LABSPEC 12:40
PROVIDERS: PCP Family Medicine; Visit Provider Family Medicine
DX: N39.0 Urinary tract infection, site not specified (principal)
CPT/HCPCS: 87086; 87088; 87186

== ENCOUNTER → 2022-02-27 | Outpatient (CLI) | payer MEDICARE, OTHER, SELFPAY ==
[2019-05-26 10:53] VITALS: BMI 38.9
--- NOTE | 2022-02-27 14:04 | BI_ITS ---
MAMMOGRAPHY - BILATERAL SCREENING REASON FOR EXAM: Female, 76 years old. Routine annual screening examination. PERTINENT HISTORY: Non-contributory. TECHNIQUE: Digital bilateral breast edmund (3D mammographic acquisition) in the CC and MLO projections. 2-D mediolateral oblique (MLO) and craniocaudad (CC) views of both breasts were obtained. CAD: Full Field Digital Mammography with Computer Added Detection was performed. COMPARISON: Comparison is made with prior examination dated 01/30/2021 and 12/08/2019. FINDINGS: Breast Composition: There are scattered areas of fibroglandular density. There are no dominant masses or suspicious calcifications. Stable small benign-appearing bilateral axillary lymph nodes. No other significant abnormalities are identified. There has been no significant change since the prior study. BI/SCRN MAMM (CAD)W/EDMUND BILAT IMPRESSION: Stable bilateral screening mammogram. Yearly follow-up mammogram recommended. (A) ASSESSMENT CATEGORY: BIRADS Category 2: Benign. A letter regarding these results will be sent to the patient by the facility within 30 days. Approximately 10% of breast cancers are not detected by mammography. A normal mammogram should not delay biopsy of a clinically suspicious abnormality. [id number] Electronically Signed: Shubham Patel MD at 15:26 EDT ,
== END | disposition home or self-care (01) ==
LOC: OPBI 14:00
PROVIDERS: PCP Family Medicine; Visit Provider Family Medicine
DX: Z12.31 Encounter for screening mammogram for malignant neoplasm of breast (principal)
CPT/HCPCS: 77063; 77067

== ENCOUNTER → 2022-03-09 | Outpatient (CLI) | payer MEDICARE, OTHER, SELFPAY ==
[2019-05-26 10:53] VITALS: BMI 38.9
--- NOTE | 2022-03-09 14:20 | US_ITS ---
STUDY: ULTRASOUND BREAST - RIGHT REASON FOR EXAM: Female, 76 years old. Breast pain TECHNIQUE: Axial and longitudinal images of the RIGHT breast were performed with a high resolution ultrasound transducer. # OF IMAGES: 43 COMPARISON: Screening mammogram 02/27/2022 FINDINGS: RIGHT Breast: Heterogeneous background echotexture. Multiple longitudinal and transverse ultrasound images of the lateral right breast fail to demonstrate a discrete solid or cystic mass or lymphadenopathy.: US/Breast Limited Unilateral IMPRESSION: Normal mammogram and right breast ultrasound. ASSESSMENT CATEGORY: BIRADS Category 1: Negative. A letter regarding these results will be sent to the patient by the facility within 30 days. Electronically Signed: Logan De Jesus MD at 14:54 EDT ,
== END | disposition home or self-care (01) ==
LOC: OPBI 14:19
PROVIDERS: PCP Family Medicine; Referring Provider Family Medicine; Visit Provider Family Medicine
DX: R22.31 Localized swelling, mass and lump, right upper limb (principal); R92.8 Other abnormal and inconclusive findings on diagnostic imaging of breast
CPT/HCPCS: 76642

== ENCOUNTER → 2022-07-11 | Outpatient (CLI) | payer MEDICARE, OTHER, SELFPAY ==
[2019-05-26 10:53] VITALS: BMI 38.9
--- NOTE | 2022-11-20 12:32 | PCM.PROGNOTE ---
Subjective Subjective PAtient seen bedside this AM. Patient denies changes overnight. No new complaints. Objective Data Lab / Micro Data Micro: Microbiology 07/11/22 15:27 Urine, Clean Catch Urine Culture - Final Klebsiella pneumoniae sp pneum Physical Exam Narrative neurovascular status unchanged necrotic left heel wound with purulent drainage extending into medial and lateral ankle - unchanged Assessment & Plan Assessment/Plan (1) Non-pressure chronic ulcer of other part of left foot with fat layer exposed:
== END | disposition home or self-care (01) ==
LOC: LABSPEC 15:26
PROVIDERS: PCP Family Medicine; Visit Provider Family Medicine
DX: N39.0 Urinary tract infection, site not specified (principal)
CPT/HCPCS: 87077; 87086; 87088; 87186

== ENCOUNTER → 2022-12-27 | Outpatient (CLI) | payer MEDICARE, OTHER, SELFPAY ==
[2019-05-26 10:53] VITALS: BMI 38.9
[2022-12-27 12:38] LABS: Absolute Lymphocyte Count 1.61 X10^3/uL (0.83-4.51); Absolute Neutrophil Count 3.4 X10^3/uL (2.0-7.7); Basophil# 0.06 X10^3/uL; Eosinophil# 0.28 X10^3/uL; Eosinophils% 4.8 % (0-5); Hematocrit 37.2 % (37-47); Hemoglobin 11.3 g/dL (12.0-15.0); Lymphocyte # 1.61 X10^3/ul (0.83-4.51); Lymphocyte % 27.8 % (19-41); Mean Corp Hgb Conc 30.4 g/dL (32-36); Mean Corpuscular Volume 85.7 fL (81-99); Monocyte# 0.48 X10^3/uL; Monocyte% 8.3 % (0-10); NRBC Flagged by Analyzer 0 % (0-5); Neutrophil # 3.35 X10^3/uL (2.7-7.7); Neutrophil % 57.9 % (47-70); Platelet Count 329 K/mm3 (150-450); RBC Distribution Width CV 16.2 % (11.6-14.6); RBC Distribution Width SD 51.1 fl (35.1-43.9); Red Blood Count 4.34 M/mm3 (4.2-5.4); White Blood Count 5.8 K/mm3 (4.4-11.0)
[2022-12-27 12:52] LABS: AST(SGOT) 17 U/L (15-37); Alanine Aminotransfer ALT/SGPT 21 U/L (13-56); Albumin, Serum 3.5 g/dL (3.2-5.0); Alkaline Phosphatase 75 U/L (45-117); Anion Gap 4 (5-15); BUN 20 mg/dL (7-18); BUN/Creat Ratio 24.4 RATIO (10-20); Calcium,Total 8.7 mg/dL (8.5-10.1); Chloride 104 mmol/L (98-107); Cholesterol 123 mg/dL (200); Creatinine, Serum 0.82 mg/dL (0.55-1.02); EST Glomerular Filtration Rate 72 mL/min (>60); Est Glom Filt Rate - Afr Amer 87 mL/min (>60); Globulin 3.4 g/dL (2.2-4.2); Glucose 68 mg/dL (74-106); High Density Lipoprotein 63 mg/dL; Potassium 4.1 mmol/L (3.5-5.1); Protein, Total 6.9 g/dL (6.4-8.2); Sodium Level 139 mmol/L (136-145); Triglycerides 70 mg/dL; Very Low Density Lipoprotein 14 mg/dL (5-40)
[2022-12-27 13:32] LABS: Microalbumin,Random Urine 5.8 mg/L (NO RANGE EST.); Microalbumin:Creatinine Ratio 5.4 mg/g CRE (<30 mg/g CRE)
== END | disposition home or self-care (01) ==
PROVIDERS: PCP Family Medicine; Referring Provider Family Medicine; Visit Provider Family Medicine
DX: E78.5 Hyperlipidemia, unspecified (principal); E11.9 Type 2 diabetes mellitus without complications; Z79.4 Long term (current) use of insulin; Z51.81 Encounter for therapeutic drug level monitoring
CPT/HCPCS: 36415; 80053; 80061; 82043; 82570; 83036; 85025

== ENCOUNTER → 2023-02-28 | Outpatient (CLI) | payer MEDICARE, OTHER, SELFPAY ==
[2019-05-26 10:53] VITALS: BMI 38.9
--- NOTE | 2023-02-28 12:16 | BI_ITS ---
MAMMOGRAPHY - BILATERAL SCREENING REASON FOR EXAM: Female, 77 years old. Routine annual screening examination. PERTINENT HISTORY: Non-contributory. Remote left breast aspiration. TECHNIQUE: Digital bilateral breast edmund (3D mammographic acquisition) in the CC and MLO projections. 2-D mediolateral oblique (MLO) and craniocaudad (CC) views of both breasts were obtained. CAD: Full Field Digital Mammography with Computer Added Detection was performed. COMPARISON: Comparison is made with prior study February 27, 2022 and January 30, 2021. FINDINGS: Breast Composition: There are scattered areas of fibroglandular density. There are no dominant masses or suspicious calcifications. Stable 4 mm well-defined nodule in the central deep portion of the left breast suggestive of a small cyst. Stable breast asymmetry more breast tissue seen in the right breast as compared to the left side. No other significant abnormalities are identified. There has been no significant change since the prior study. BI/SCRN MAMM (CAD)W/EDMUND BILAT IMPRESSION: Stable bilateral screening mammogram. Yearly follow-up mammogram recommended. (A) ASSESSMENT CATEGORY: BIRADS Category 2: Benign. A letter regarding these results will be sent to the patient by the facility within 30 days. Approximately 10% of breast cancers are not detected by mammography. A normal mammogram should not delay biopsy of a clinically suspicious abnormality. [id number] Electronically Signed: Shubham Patel MD at 13:10 EDT ,
== END | disposition home or self-care (01) ==
LOC: OPBI 12:14
PROVIDERS: PCP Family Medicine; Referring Provider Family Medicine; Visit Provider Family Medicine
DX: Z12.31 Encounter for screening mammogram for malignant neoplasm of breast (principal)
CPT/HCPCS: 77063; 77067

== ENCOUNTER → 2023-03-27 | Outpatient (CLI) | payer MEDICARE, OTHER, SELFPAY ==
[2019-05-26 10:53] VITALS: BMI 38.9
--- NOTE | 2023-03-27 13:26 | EKG12_ITS ---
Test Reason : PRE-OP Blood Pressure : / mmHG Vent. Rate : 092 BPM Atrial Rate : 092 BPM P-R Int : 162 ms QRS Dur : 080 ms QT Int : 358 ms P-R-T Axes : 030 015 047 degrees QTc Int : 442 ms Normal sinus rhythm with sinus arrhythmia Nonspecific ST abnormality Abnormal ECG Confirmed by VICKY CLAYTON, VONNIE ([id number]), newspaper editor managing CHRISTINE GARRISON ([id number]) on 03/28/2023 10:16:26 AM Referred By: Gee David Confirmed By:VONNIE PERRY MD
[2023-03-27 13:44] LABS: Hematocrit 37.8 % (37-47); Hemoglobin 11.7 g/dL (12.0-15.0); Mean Corpuscular Hgb 26.1 pg (27.0-32.0); Mean Corpuscular Volume 84.4 fL (81-99); Platelet Count 347 K/mm3 (150-450); RBC Distribution Width CV 15.1 % (11.6-14.6); RBC Distribution Width SD 46.2 fl (35.1-43.9); Red Blood Count 4.48 M/mm3 (4.2-5.4); White Blood Count 8.9 K/mm3 (4.4-11.0)
[2023-03-27 14:01] LABS: Anion Gap 6 (5-15); BUN 23 mg/dL (7-18); BUN/Creat Ratio 27.9 RATIO (10-20); Calcium,Total 8.8 mg/dL (8.5-10.1); Chloride 105 mmol/L (98-107); Creatinine, Serum 0.82 mg/dL (0.55-1.02); EST Glomerular Filtration Rate 72 mL/min (>60); Est Glom Filt Rate - Afr Amer 87 mL/min (>60); Glucose 180 mg/dL (74-106); Potassium 4.3 mmol/L (3.5-5.1); Sodium Level 138 mmol/L (136-145)
== END | disposition home or self-care (01) ==
LOC: PSN 13:19
PROVIDERS: PCP Family Medicine; Referring Provider Otolaryngology; Visit Provider Otolaryngology
DX: Z01.818 Encounter for other preprocedural examination (principal); Z01.810 Encounter for preprocedural cardiovascular examination; Z01.812 Encounter for preprocedural laboratory examination
CPT/HCPCS: 36415; 80048; 85027; 93005

== ENCOUNTER → 2023-04-01 | Outpatient (CLI) | payer MEDICARE, OTHER, SELFPAY ==
[2019-05-26 10:53] VITALS: BMI 38.9
--- NOTE | 2023-04-01 16:04 | STRESSREP ---
Stress Test Report Pharmacologic myocardial perfusion stress test. 77-year-old lady with history of chest pain and preoperative cardiovascular evaluation Resting EKG demonstrates sinus rhythm with a rate of 75 bpm. Resting blood pressure is 122/78 mmHg. 0.4 mg of regadenoson was infused per usual protocol followed by rapid intravenous saline flush injection. Continuous EKG monitoring was performed. The maximum heart rate was 88 bpm which was 60% of max impacted heart rate the maximum workload was 1 metabolic equivalent. At rest there were no ST or T wave changes noted to suggest ischemia and at peak infusion nonspecific ST changes were noted which did not meet the criteria for ischemia. No clinical angina is noted. The final blood pressure was 130/72 mmHg. Myocardial perfusion protocol. 14.3 mCi of technetium 99m sestamibi was injected at rest. 0.4 mg of regadenoson was infused per usual protocol. At peak infusion 44.5 mCi of technetium 99m sestamibi was injected stress images were obtained stress and rest images were reconstructed and compared in the short axis vertical long and horizontal long axis. Gated images were also obtained. Perfusion SPECT analysis: Review of the stress images demonstrate normal uptake of tracer noted in all areas of the myocardium. The resting images similar demonstrated normal uptake of tracer noted in all areas of the myocardium. No areas of reversibility are noted to suggest ischemia and no previous infarct is noted. Gated SPECT analysis: The gated ejection fraction is 73%. Conclusion: Normal pharmacologic myocardial perfusion stress test. Preserved ejection fraction.
== END | disposition home or self-care (01) ==
LOC: CVS 06:11
PROVIDERS: PCP Family Medicine; Referring Provider Nurse Practitioner Gerontology; Visit Provider Nurse Practitioner Gerontology
DX: I25.10 Atherosclerotic heart disease of native coronary artery without angina pectoris (principal)
CPT/HCPCS: 78452; 93017; A9500; A4216; J2785

== ENCOUNTER → 2023-04-18 | Outpatient (CLI) | payer MEDICARE, OTHER, SELFPAY ==
[2019-05-26 10:53] VITALS: BMI 38.9
--- NOTE | 2023-04-18 | IMM_PTH ---
PATIENT: TONI EMERSON [id number] AGE/SX: 77/F ROOM: RE04/18/[address]: Dr. Gee David MD : 1945 BED: DIS: 04/18/2023 SPEC #: [id number] RECD: 04/22/23 14:13 STATUS: FUENTES REQ #: [id number] ANDRES: 04/18/23 00:[address]: Gee David DEPT: IMMUNOHISTOCHEMISTRY RECD BY: Chyna Ernst ENTERED: 04/22/23 14:20 SP TYPE: IMMUNO OTHR DR: Dr. Lisa Gamble, DO Tissues: A - Nasopharynx, NOS B - Nasopharynx, NOS C - Nasopharynx, NOS Procedures: BCL-2 (add) BCL-6 (add) CD10 (add) CD138 (add) CD15 (add) CD20 (add) CD23 (add) CD30 (add) CD43 (add) CD45 (add) CD5 (add) CD79A (add) CYCLIN (add) KAPPA (add) LAMBDA (add) MUM1 (add) Pankeratin (add) CD3 (initial) PHYSICIAN & [place] [id number] SPECIMEN INFORMATION: Tissue Source: A - Left posterior nasopharyngeal wall, B - Left torus tubarious, C - Left lateral nasopharyngeal wall Clinical Info: Specimen Number: CPT code: 69753 x3, 94846 x23 METHODOLOGY: Deparaffinized sections of prefer/formalin-fixed tissue or PAP/DQ stained slides are incubated with monoclonal/polyclonal antibodies/oligonucleotide probes. Localization is made via biotin free immunoperoxidase method. Appropriate controls are performed and reacted as expected. Results on target cell population are indicated in the following table: RESULTS: ANTIBODY / CLONE RESULT Block A AE1-3 (AE1/AE3/PCK26) negative CD3 (PS1) positive CD5 (SP10) positive CD10 (56C6) negative CD15 (MMA) negative CD20 (L26) positive CD23 (1B12) negative CD30 (Gary-H2) negative CD43 (L60) positive CD45 (RP2/18) positive CD79a (11E3) positive CD138 (B-A38) negative BCL-2 (bcl-2/100/D5) positive BCL-6 (ME306V/A8) negative Cyclin D1/BCL-1 (SP4) negative MUM1 (MRQ-43) negative Nebo (polyclonal) negative Lambda (polyclonal) negative Block B CD3 (PS1) positive CD5 (SP10) positive CD20 (L26) positive CD45 (RP2/18) positive Block C CD3 (PS1) positive CD5 (SP10) positive CD20 (L26) positive CD45 (RP2/18) positive These tests were developed and their performance characteristics determined by [facility]. They may not have been cleared or approved by the U.S. Food and Drug Administration. The FDA has determined that such clearance or approval is not necessary. The above immunohistochemical/dualISH markers are ordered and reviewed by the Pathologist. INTERPRETATION: A. Left posterior nasopharyngeal wall, biopsy: Polytypic lymphoid tissue. B. Left torus tubarious, biopsy: Polytypic lymphoid tissue. C. Left lateral nasopharyngeal wall, biopsy: Polytypic lymphoid tissue. AM:raj 04/23/2023
--- NOTE | 2023-04-18 | NASAL_PTH ---
PATIENT: TONI EMERSON LOC: [facility] U#:[id number] AGE/SX: 77/F ROOM: RE04/18/[address]: Dr. Gee David MD : 1945 BED: DIS: 04/18/2023 SPEC #: [id number] RECD: 04/19/23 10:11 STATUS: FUENTES DEMETRIO #: [id number] ANDRES: 04/18/23 00:[address]: Gee David DEPT: SURGICAL PATHOLOGY RECD BY: Valdemar Ghotra ENTERED: 04/19/23 10:12 SP TYPE: NASAL SPEC OTHR DR: Dr. 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 Left posterior nasopharyngeal wall, biopsy: Benign lymphoid aggregates. See comment. B. Left torus tubarious, biopsy: Benign lymphoid aggregates. See comment. C. Left lateral nasopharyngeal wall, biopsy: Benign lymphoid aggregates. See comment. AM:raj 04/22/2023 COMMENT A-C. Immunohistochemistry ([id number]) supports the above diagnosis. Sections show tonsillar/adenoidal type tissue. Clinical correlation is suggested. Case has been reviewed in consultation with Dr. Baumann who concurs with the above diagnosis. IDC:NITA MICROSCOPIC DESCRIPTION Slides are reviewed. GROSS DESCRIPTION A - Received in fixative is one container labeled with the patient's name and designated left posterior nasopharyngeal wall. The specimen consists of one irregular fragment of light castillo soft tissue that measures 0.6 x 0.2 x 0.1 cm. The specimen is totally submitted in one cassette. B - Received in fixative is one container labeled with the patient's name and designated left torus tubarious. The specimen consists of one irregular fragment of light castillo soft tissue that measures 0.5 x 0.5 x 0.1 cm. The specimen is totally submitted in one cassette. C - Received in fixative is one container labeled with the patient's name and designated left lateral nasopharyngeal wall. The specimen consists of one irregular fragment of light castillo soft tissue that measures 0.6 x 0.3 x 0.1 cm. The specimen is totally submitted in one cassette. / AM:raj 04/19/2023 TC:5 CPT: 11356 x3
== END | disposition home or self-care (01) ==
LOC: LABSPEC 15:49
PROVIDERS: PCP Family Medicine; Referring Provider Otolaryngology; Visit Provider Otolaryngology
DX: D10.6 Benign neoplasm of nasopharynx (principal)
CPT/HCPCS: 88305; 88341; 88342

== ENCOUNTER → 2023-08-20 | Outpatient (CLI) | payer MEDICARE, OTHER, SELFPAY ==
[2019-05-26 10:53] VITALS: BMI 38.9
== END | disposition home or self-care (01) ==
LOC: LABSPEC 11:05
PROVIDERS: PCP Nurse Practitioner Family; Visit Provider Nurse Practitioner Family
DX: N39.0 Urinary tract infection, site not specified (principal)
CPT/HCPCS: 87086; 87088; 87186

== ENCOUNTER → 2023-10-03 | Outpatient (CLI) | payer MEDICARE, OTHER, SELFPAY ==
[2019-05-26 10:53] VITALS: BMI 38.9
[2023-10-03 15:38] LABS: CRP 4.44 mg/L (0.0-3.0)
[2023-10-03 15:42] LABS: Absolute Lymphocyte Count 1.58 X10^3/uL (0.83-4.51); Absolute Neutrophil Count 4.9 X10^3/uL (2.0-7.7); Basophil# 0.07 X10^3/uL; Basophil% 0.9 % (0-1); Eosinophil# 0.32 X10^3/uL; Eosinophils% 4.3 % (0-5); Hematocrit 38.5 % (37-47); Hemoglobin 11.8 g/dL (12.0-15.0); Lymphocyte # 1.58 X10^3/ul (0.83-4.51); Lymphocyte % 21.2 % (19-41); Mean Corp Hgb Conc 30.6 g/dL (32-36); Mean Corpuscular Hgb 26.6 pg (27.0-32.0); Mean Corpuscular Volume 86.7 fL (81-99); Mean Platelet Vol. 10.4 fl (6.2-12.0); Monocyte# 0.55 X10^3/uL; Monocyte% 7.4 % (0-10); NRBC Flagged by Analyzer 0 % (0-5); Neutrophil # 4.92 X10^3/uL (2.7-7.7); Neutrophil % 65.8 % (47-70); Platelet Count 293 K/mm3 (150-450); RBC Distribution Width CV 15.6 % (11.6-14.6); RBC Distribution Width SD 49.5 fl (35.1-43.9); Red Blood Count 4.44 M/mm3 (4.2-5.4); White Blood Count 7.5 K/mm3 (4.4-11.0)
[2023-10-03 15:44] LABS: Erythrocyte Sedimentation Rate 14 mm/hr (0-30)
== END | disposition home or self-care (01) ==
LOC: BFHLAB 13:26
PROVIDERS: PCP Nurse Practitioner Family; Visit Provider Specialist
DX: Z96.642 Presence of left artificial hip joint (principal)
CPT/HCPCS: 36415; 85025; 85652; 86140

== ENCOUNTER 2023-11-01 11:00 | Outpatient (RCR) | payer MEDICARE, OTHER, SELFPAY ==
[2019-05-26 10:53] VITALS: BMI 38.9
--- NOTE | 2023-10-07 12:46 | HP.PTEVAL ---
Patient's Visit Information Visit Information Visit Information: TONI EMERSON is a 77 year old F referred to Physical Therapy by Dr. Tarik Oh MD with a diagnosis of L hip pain. Date of Evaluation: 10/07/23 Physical Therapist: Gabriel Moss, PT, ATC Visit Plan Frequency: 2-3x /Week Duration: 4-6 Weeks Plan: Aquatic therapy consisting of L LE strengthening, core stab ex's, and HEP Subjective Subjective: Pt reports she had a RON performed on her L hip 6 years ago. Pt reports after that surgery, she dislocated her L hip and fractured her L femur which required her to have surgery again where a ella and pins were inserted. Pt reports it took her 1 1/2 years until she felt better after that surgery. However, one month ago she started to have pain again in her L groin and on the front of her L thigh. Pt reports she has stairs at home, and has to negotiate them one step at a time. Pt lives by herself and has to perform all IADL's I. Pt reports she is able to ambulate without pain, but is limited with prolonged ambulation secondary to pain. Pt denies tingling or numbness in L LE. Pt denies sleep difficulty at this time secondary to pain. 0/10 pain while sitting at rest, 7/10 pain at worst (performing sit to stand transfers) Pain L RON 6 years ago: Pain Intensity (Out of 10): 0 Pain Intensity Range: 7 Objective Objective: Neuro: B LE sensation is WNL to light touch. B patellar reflex 1/3 ROM: B LE ROM is WNL when compared bilaterally. MMT: R hip flex= 14, abd=40 , add= 46 #F; R knee flex= 40, ext= 44 #F; L hip flex= 19, abd= 41, add= 47 #F; L knee flex= 46, ext= 40 #F; Gait: Pt is able to ambulate greater than 1000 feet without AD or incident TU.45 sec Balance/Special Test Scores Lower Extremity Functional Score: 38 Goals Goal 1:: Increase L hip and knee strength x 5 #F to aid with stair negotiation Goal Time Frame: 4-6 Weeks Goal 2:: Decrease L hip pain x 50% to aid with sit to stand tolerance Goal Time Frame: 4-6 Weeks Goal 3:: Perform TUG test in under 8 sec to aid with safe community ambulation Goal Time Frame: 4-6 Weeks Goal 4:: I with HEP Goal Time Frame: 4-6 Weeks Rehabilitation Potential Physical Therapy Diagnosis: Pt has L LE weakness and pain secondary to debility of L LE Rehabilitation Potential: Good Anticipated Interventions Patient/Client Instruction: Educate patient on: Condition and Plan of Care For the Purpose of:: To improve self management Therapeutic Exercise to Include: Strength training, Endurance training, Postural training, In an aquatic setting and Dynamic Lumbar Stabilization For the Purpose of:: To decrease pain, To increase ROM and To improve muscle performance and motor function Cryotherapy (ice pack, ice massage): Yes For the Purpose of:: To decrease pain Text: Thank you for the opportunity to evaluate your patient. For Medicare and Medicare HMO plans, please review the plan of care and approve it. It will need to be FAXED BACK to us at [phone] for Medicare purposes. For Medicare only, by signing this I certify the plan of care. Please let me know if there are questions or concerns regarding this plan of care. Physician Signature: Date:
--- NOTE | 2024-01-09 16:26 | HP.PTDCSUM ---
Discharge Summary D/C summary: It has been my pleasure to treat TONI EMERSON referred by Dr. Tarik Oh MD, with the diagnosis of L hip pain for a total of 12 visit(s). Discharge Date: Please see the following information for a summary of their discharge status. Subjective Subjective: I feel great. No pain today Pain L RON 6 years ago: Pain Intensity (Out of 10): 0 Overall Improvement % Improvement: 100 Objective Objective/Function: L hip pain is 0/10 No pain with sit to stand transfers MMT: L hip flex= 20, abd= 41, add= 40 #F; L knee flex= 32, ext= 43 #F TU.25 sec Pt is I with HEP Goals Goal 1:: Increase L hip and knee strength x 5 #F to aid with stair negotiation Goal Progress: Progressing Goal 2:: Decrease L hip pain x 50% to aid with sit to stand tolerance Goal Progress: Goal Met Goal 3:: Perform TUG test in under 8 sec to aid with safe community ambulation Goal Progress: Goal Met Goal 4:: I with HEP Goal Progress: Goal Met Plan Plan: Discharge D/C Information d/c sentence: If there are questions or concerns regarding this patient's physical therapy, please feel free to call me at [phone]. Thank you for the referral of this patient. Sincerely, Gabriel Moss, PT, ATC Balance/Gait/Functional tests Balance/Special Test Scores Lower Extremity Functional Score: 54 Improvement % Improvement: 100
== END 2023-11-01 19:00 | disposition home or self-care (01) ==
LOC: PT 11:00
PROVIDERS: PCP Nurse Practitioner Family; Visit Provider Specialist
DX: Z96.642 Presence of left artificial hip joint (principal); M25.552 Pain in left hip
CPT/HCPCS: 97113; 97161

== ENCOUNTER 2023-11-21 05:25 | Emergency (ER) | payer MEDICARE, OTHER, SELFPAY ==
[2019-05-26 10:53] VITALS: BMI 38.9
[2023-11-21 05:26] VITALS: BP 185/81; PULSE 84; RESP 14; TEMP 36; O2SAT 97; BMI 39.3
--- NOTE | 2023-11-21 06:09 | EX.ED.DYSGE1 ---
HPI History of Present Illness Chief Complaint: Headache Informant: patient Narrative Narrative: Patient is a 77-year-old female with past medical history of hypertension and Dunn's palsy as well as need for tympanostomy tube in the left ear. She states that over the past week or so she has had increased nasal congestion and sinus pressure. She states that she has noticed over the last day or 2 that there is an abnormal sound present within her head/ear region. She states she does not know what this is from and secondary to this comes in for evaluation. She does state that she was recently on a 7-day course of doxycycline secondary to UTI and just finished yesterday [facility] Medical History Atherosclerosis of coronary artery of [place] heart without angina pectoris Essential (primary) hypertension GERD (gastroesophageal reflux disease) Hyperlipidemia Obesity Type 2 diabetes mellitus Upper GI bleed Home Medications aspirin 81 mg chewable tablet 81 mg PO DAILY health maintenance 12/13/17 [History Last Taken 09/06/19 21:00] benazepril 20 mg tablet 20 mg PO DAILY blood pressure 12/13/17 [History Last Taken 09/06/19 21:00] rosuvastatin 5 mg tablet 5 mg PO QHS cholesterol 12/13/17 [History Last Taken 09/06/19 21:00] acetaminophen 500 mg tablet 1,000 mg PO Q8 PRN pain 12/18/17 [History Last Taken 09/06/19 15:00] insulin detemir U-100 100 unit/mL (3 mL) subcutaneous pen 40 unit subcut BREAKFAST diabetes 05/19/19 [History Last Taken 09/06/19 09:00] insulin detemir U-100 100 unit/mL (3 mL) subcutaneous pen 48 unit subcut QHS diabetes 05/19/19 [History Last Taken 09/06/19 21:00] paroxetine HCl 30 mg tablet 30 mg PO DAILY 01/26/20 [History Last Taken Unknown] clopidogrel 75 mg tablet (Plavix) 75 mg PO QDAY #90 tabs 01/02/22 [Rx Last Taken Unknown] famotidine 40 mg tablet (Pepcid) 40 mg PO DAILY #90 tabs 01/02/22 [Rx Last Taken Unknown] dicyclomine 10 mg capsule 10 mg PO BID 05/15/22 [History Last Taken Unknown] isosorbide dinitrate 10 mg tablet See Rx Instructions .Route .COMPLEX #270 tabs 03/13/23 [Rx Last Taken Unknown] metoprolol tartrate 25 mg tablet See Rx Instructions .Route .COMPLEX #180 TABLETS 05/29/23 [Rx Last Taken Unknown] ascorbate calcium (vitamin C) 500 mg tablet 500 mg PO DAILY 06/18/23 [History Last Taken Unknown] cholecalciferol (vitamin D3) 25 mcg (1,000 unit) capsule 25 mcg PO DAILY 06/18/23 [History Last Taken Unknown] mecobalamin (vitamin B12) 1,000 mcg chewable tablet 1,000 mcg PO DAILY 06/18/23 [History Last Taken Unknown] metformin 500 mg tablet,extended release 24 hr 500 mg PO BID diabetes 06/18/23 [History Last Taken Unknown] zinc acetate 50 mg (zinc) capsule 50 mg PO DAILY 06/18/23 [History Last Taken Unknown] azelastine 137 mcg (0.1 %) nasal spray aerosol 2 spray intranasal BID #30 mL 11/21/23 [Rx Last Taken Unknown] prednisone 20 mg tablet 20 mg PO DAILY 5 days #5 tabs 11/21/23 [Rx Last Taken Unknown] Allergy/AdvReac Type Severity Reaction Status Date / Time adhesive tape Allergy red, itchy Verified 11/21/23 05:29 atorvastatin [From Lipitor] Allergy myalgias Verified 11/21/23 05:29 Iodinated Contrast Media [CT] Allergy Shortness Verified 11/21/23 05:29 of breath Penicillins Allergy Rash Verified 11/21/23 05:29 pravastatin Allergy myalgias Verified 11/21/23 05:29 Family History Father COPD (chronic obstructive pulmonary disease) Myocardial infarction Mother Diabetes CAD (coronary artery disease) Hx CABG Alzheimers disease CVA (cerebral vascular accident) Brother H/O angioplasty Diabetes Brother CVA (cerebral vascular accident) Son Diabetes Surgical History H/O total hip arthroplasty History of bilateral hip replacements History of coronary artery stent placement (05/26/19) History of hysterectomy History of laminectomy History of left heart catheterization (12/07/11) History of total bilateral knee replacement Hx of appendectomy Social History Smoking Status: Never smoker alcohol intake: never substance use type: does not use diet: diabetic caffeine: Yes Type: coffee Number of servings: 3 what type of physical activity do you participate in: other details: PT frequency: 3-4 times per week duration: 30-45 minutes/day seatbelt use: always do you feel safe at home: Yes ROS ROS ED Constitutional Constitutional ED: Denies chills or fever(s) Eyes Eyes: Denies blurry vision or change in vision ENT ENT ED: Reports ear pain, rhinorrhea and sore throat Cardiovascular Cardiovascular: Denies chest pain Respiratory/Chest Respiratory/Chest: Reports cough; Denies dyspnea Gastrointestinal Gastrointestinal: Denies abdominal pain, diarrhea, nausea or vomiting Genitourinary Genitourinary ED: Denies dysuria Musculoskeletal Musculoskeletal: Denies myalgias or neck pain Integumentary Denies rash Neurologic Neurologic: Denies headache(s) Hematologic/Lymphatic Hematologic/Lymphatic: Reports easy bleeding and easy bruising EXAM Physical Exam Const Vital Signs: 11/21/23 05:26 Temperature 96.8 F L Temperature Source Temporal Pulse Rate 84 Respiratory Rate 14 Blood Pressure 185/81 H Blood Pressure Mean 115 Pulse Ox 97 Positive well nourished and well developed General Appearance ED: well developed; Negative for pallor HEENT Reports moist mucous membranes HEENT Narrative: Left canal and TM appear normal with tympanostomy tube in place Right canal is normal but the right TM is retracted consistent with eustachian tube dysfunction/pressure. No overt signs of infection or air-fluid levels noted No pain with palpation of either mastoid Nasal mucosa is hyperemic and boggy with enlarged inferior nasal turbinates right greater than left There is cobblestoning present in the posterior pharynx consistent with sinus drainage without airway edema or compromise. 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 She reported multiple days of increased nasal congestion and then hearing a abnormal sound within her right-sided ear/head. On exam she has increased congestion with enlarged turbinates leading to eustachian tube dysfunction which has led to retraction of her eardrum without infection. She does not have new neurologic deficits to suggest this is acute stroke there are no overt findings to suggest this is otitis media or otitis externa or malignant otitis externa and there is no pain on palpation over top of either mastoid to suggest acute mastoiditis. Therefore at this time as exam and history indicates this is most likely pressure related should be placed on a nasal spray and a 5-day course of steroid to reduce inflammation and pressure and if there is no improvement she can follow-up with her ENT to discuss need for a second tympanostomy tube History & Record Review Discussion w/independent historian: Patient Discharge Plan Triage Chief Complaint: Headache ED Provider: Deangelo Baldwin Dx/Rx/DC Orders Clinical Impression: Acute dysfunction of right eustachian tube, Insulin dependent diabetes mellitus, Essential (primary) hypertension, History of Dunn's palsy Instructions: Common Middle Ear Problems Prescriptions: New azelastine 137 mcg (0.1 %) aerosol,spray 2 spray intranasal BID Qty: 30 0RF Rx Instructions: administer into each nostril prednisone 20 mg tablet 20 mg PO DAILY 5 Days Qty: 5 0RF No Action paroxetine HCl 30 mg tablet 30 mg PO DAILY Patient Comments: take 1 tablet by mouth every morning metformin 500 mg tablet extended release 24 hr 500 mg PO BID Patient Comments: DIABETES dicyclomine 10 mg capsule 10 mg PO BID mecobalamin (vitamin B12) 1,000 mcg tablet,chewable 1,000 mcg PO DAILY ascorbate calcium (vitamin C) 500 mg tablet 500 mg PO DAILY cholecalciferol (vitamin D3) 25 mcg (1,000 unit) capsule 25 mcg PO DAILY zinc acetate 50 mg (zinc) capsule 50 mg PO DAILY insulin detemir U-100 100 unit/mL (3 mL) insulin pen 40 unit SC BREAKFAST Patient Comments: DIABETES acetaminophen 500 mg tablet 1,000 mg PO Q8 PRN (Reason: pain) Patient Comments: Pain insulin detemir U-100 100 unit/mL (3 mL) insulin pen 48 unit SC QHS Patient Comments: DIABETES aspirin 81 MG tablet,chewable 81 mg PO DAILY benazepril 20 MG tablet 20 mg PO DAILY Patient Comments: TAKE ONE TABLET BY MOUTH EVERY DAY rosuvastatin 5 MG tablet 5 mg PO QHS clopidogrel [Plavix] 75 mg tablet 75 mg PO QDAY Qty: 90 3RF famotidine [Pepcid] 40 mg tablet 40 mg PO DAILY Qty: 90 3RF isosorbide dinitrate 10 mg tablet See Rx Instructions .ROUTE .COMPLEX Qty: 270 3RF Dose Instruction: take 1 tablet by mouth three times a day for blood pressure Rx Instructions: take 1 tablet by mouth three times a day for blood pressure metoprolol tartrate 25 mg tablet See Rx Instructions .ROUTE .COMPLEX Qty: 180 3RF Dose Instruction: take 1 tablet by mouth twice a day for blood pressure Rx Instructions: take 1 tablet by mouth twice a day for blood pressure Primary Care Provider: Lisa Gamble Referrals: Gee David MD [Med Staff - Active Staff] - Lisa Gamble DO [Primary Care Provider] - Activity Restrictions/Additional Instructions: Your exam and symptoms are consistent with eustachian tube dysfunction secondary to increased congestion in the nasal passages and sinuses. Use the nasal spray twice a day as directed and take the steroid for the next 5 days. As you were given steroids in the ER you may start your prescription on Saturday. If symptoms persist despite treatment you may need an other tympanostomy tube placed and therefore follow-up with your ENT for repeat evaluation and return to the ER should you have any further concerns. Disposition Disposition: Home, Self Care
[2023-11-21] MEDS: dexAMETHasone 10 MG/ML Vial PO.IVFORM (06:53)
[2023-11-21 06:55] VITALS: BP 165/80; PULSE 66; RESP 16; TEMP 36.6; O2SAT 96
== END 2023-11-21 06:56 | disposition home or self-care (01) ==
LOC: ED 06:30
PROVIDERS: Emergency Provider Emergency Medicine; PCP Family Medicine; Visit Provider Emergency Medicine
DX: H69.91 Unspecified Eustachian tube disorder, right ear (principal); E11.9 Type 2 diabetes mellitus without complications; Z79.4 Long term (current) use of insulin; I25.10 Atherosclerotic heart disease of native coronary artery without angina pectoris; I10 Essential (primary) hypertension; E78.5 Hyperlipidemia, unspecified; Z79.82 Long term (current) use of aspirin; Z79.84 Long term (current) use of oral hypoglycemic drugs; Z79.02 Long term (current) use of antithrombotics/antiplatelets; Z79.899 Other long term (current) drug therapy
CPT/HCPCS: 99283

== ENCOUNTER → 2024-01-28 | Outpatient (CLI) | payer MEDICARE, OTHER, SELFPAY ==
[2019-05-26 10:53] VITALS: BMI 38.9
--- NOTE | 2024-01-28 17:37 | CT_ITS ---
STUDY: CT MAXILLOFACIAL SINUSES REASON FOR EXAM: Female, 78 years old. SINUSITIS. Right-sided sinus congestion. RADIATION DOSAGE (If Supplied By Facility): CTDIvol = ( 33.06 ) mGy, DLP = ( 730.55 ) mGycm TECHNIQUE: The patient was scanned in a multi detector CT scanner. High resolution axial imaging was performed without the administration of intravenous contrast material. Sagittal and coronal images were reconstructed. Individualized dose optimization techniques were used for this CT. COMPARISON: None. FINDINGS: There is a 3.2 cm x 4.3 cm x 3.5 cm soft tissue mass arising from the the left side of the nasopharynx and extending, then to the level of the piriform sinuses. This crosses the midline towards the right side. A large nasopharyngeal carcinoma should be ruled out. There is evidence of enlarged lymph nodes in the left side of the neck. Enlarged left submental lymphadenopathy. Calcific plaques of the internal carotid arteries bilaterally. FRONTAL SINUSES: Normal aeration, without mucosal inflammatory disease. ETHMOIDAL SINUSES: Normal aeration, without mucosal inflammatory disease. MAXILLARY SINUSES: Nodular mucosal thickening seen in the inferior aspect of the right maxillary sinus. The largest measures 9.3 mm and this may represent a polyp or retention cyst. Mild degree mucosal thickening of the left maxillary sinus. SPHENOIDAL SINUSES: Normal aeration, without mucosal inflammatory disease. There is patency of the bilateral maxillary infundibuli with normal uncinate processes, ethmoid bullae, and hiatus semilunaris. Normal bilateral middle turbinates. Normal bilateral inferior turbinates. Normal midline nasal septum. There is patency of the bilateral nasal airways. The visualized osseous structures are normal. The visualized bilateral orbital contents are normal. CT/Sinus/Facial Bone IMPRESSION: Large mass arising in the left side of the nasopharynx down to the level of the piriform sinus extending to midline with evidence of a left cervical lymphadenopathy. A neoplastic process should BE ruled out. Nodular mucosal thickening of the right maxillary sinus and mucosal thickening of the left maxillary sinus. Electronically Signed: Shubham Patel MD at 10:18 EDT ,
== END | disposition home or self-care (01) ==
LOC: CT 17:34
PROVIDERS: PCP Family Medicine; Referring Provider Otolaryngology; Visit Provider Otolaryngology
DX: J32.9 Chronic sinusitis, unspecified (principal); J35.2 Hypertrophy of adenoids
CPT/HCPCS: 70486

== ENCOUNTER → 2024-02-14 | Outpatient (CLI) | payer MEDICARE, OTHER, SELFPAY ==
[2019-05-26 10:53] VITALS: BMI 38.9
[2024-02-14 12:12] LABS: Absolute Lymphocyte Count 1.34 X10^3/uL (0.83-4.51); Absolute Neutrophil Count 4.7 X10^3/uL (2.0-7.7); Basophil# 0.08 X10^3/uL; Basophil% 1.1 % (0-1); Eosinophil# 0.35 X10^3/uL; Hemoglobin 12.2 g/dL (12.0-15.0); Lymphocyte # 1.34 X10^3/ul (0.83-4.51); Mean Corp Hgb Conc 31.3 g/dL (32-36); Mean Corpuscular Hgb 27.1 pg (27.0-32.0); Mean Corpuscular Volume 86.5 fL (81-99); Mean Platelet Vol. 10.3 fl (6.2-12.0); Monocyte# 0.53 X10^3/uL; Monocyte% 7.5 % (0-10); NRBC Flagged by Analyzer 0 % (0-5); Neutrophil # 4.72 X10^3/uL (2.7-7.7); Neutrophil % 67.1 % (47-70); Platelet Count 302 K/mm3 (150-450); RBC Distribution Width CV 14.4 % (11.6-14.6); RBC Distribution Width SD 45.5 fl (35.1-43.9); Red Blood Count 4.51 M/mm3 (4.2-5.4)
[2024-02-14 12:38] LABS: Microalbumin,Random Urine 19.9 mg/L (NO RANGE EST.)
[2024-02-14 13:28] LABS: AST(SGOT) 18 U/L (15-37); Alanine Aminotransfer ALT/SGPT 19 U/L (13-56); Albumin, Serum 3.6 g/dL (3.2-5.0); Alkaline Phosphatase 87 U/L (45-117); Anion Gap 4 (5-15); BUN 22 mg/dL (7-18); BUN/Creat Ratio 32.2 RATIO (10-20); Calcium,Total 9.2 mg/dL (8.5-10.1); Chloride 105 mmol/L (98-107); Cholesterol 149 mg/dL (200); Creatinine, Serum 0.68 mg/dL (0.55-1.02); EST Glomerular Filtration Rate 89 mL/min (>60); Est Glom Filt Rate - Afr Amer 108 mL/min (>60); Globulin 3.5 g/dL (2.2-4.2); Glucose 86 mg/dL (74-106); High Density Lipoprotein 60 mg/dL; Potassium 4.3 mmol/L (3.5-5.1); Protein, Total 7.1 g/dL (6.4-8.2); Sodium Level 139 mmol/L (136-145); Triglycerides 117 mg/dL; Very Low Density Lipoprotein 23 mg/dL (5-40)
== END | disposition home or self-care (01) ==
LOC: BFHLAB 08:51
PROVIDERS: PCP Family Medicine; Referring Provider Family Medicine; Visit Provider Family Medicine
DX: I10 Essential (primary) hypertension (principal); E11.3212 Type 2 diabetes mellitus with mild nonproliferative diabetic retinopathy with macular edema, left eye; Z79.4 Long term (current) use of insulin; E78.5 Hyperlipidemia, unspecified; Z51.81 Encounter for therapeutic drug level monitoring
CPT/HCPCS: 36415; 80053; 80061; 82043; 83036; 85025

== ENCOUNTER → 2024-03-09 | Outpatient (CLI) | payer MEDICARE, OTHER, SELFPAY ==
[2019-05-26 10:53] VITALS: BMI 38.9
--- NOTE | 2024-03-09 12:51 | BI_ITS ---
MAMMOGRAPHY - BILATERAL SCREENING REASON FOR EXAM: Female, 78 years old. Routine annual screening examination. PERTINENT HISTORY: Non-contributory. TECHNIQUE: Digital bilateral breast edmund (3D mammographic acquisition) in the CC and MLO projections. 2-D mediolateral oblique (MLO) and craniocaudad (CC) views of both breasts were obtained. CAD: Full Field Digital Mammography with Computer Added Detection was performed. COMPARISON: Comparison is made with prior study dated February 28, 2023 and February 27, 2022. FINDINGS: Breast Composition: There are scattered areas of fibroglandular density. There are no dominant masses or suspicious calcifications. Stable asymmetry of tissue were more breast tissue is seen in the upper outer quadrant of the right breast as compared to the left side. Stable 4 mm well-defined nodule in the central deep portion of the left breast. This was demonstrated to be a small cyst on prior sonogram. Stable bilateral fat containing axillary lymph nodes. No other significant abnormalities are identified. There has been no significant change since the prior study. BI/SCRN MAMM (CAD)W/EDMUND BILAT IMPRESSION: Stable bilateral screening mammogram. Yearly follow-up mammogram recommended. (A) ASSESSMENT CATEGORY: BIRADS Category 2: Benign. A letter regarding these results will be sent to the patient by the facility within 30 days. Approximately 10% of breast cancers are not detected by mammography. A normal mammogram should not delay biopsy of a clinically suspicious abnormality. [id number] Electronically Signed: Shubham Patel MD at 14:32 EDT ,
== END | disposition home or self-care (01) ==
LOC: OPBI 12:49
PROVIDERS: PCP Family Medicine; Referring Provider Family Medicine; Visit Provider Family Medicine
DX: Z12.31 Encounter for screening mammogram for malignant neoplasm of breast (principal)
CPT/HCPCS: 77063; 77067

== ENCOUNTER → 2024-04-07 | Outpatient (CLI) | payer MEDICARE, OTHER, SELFPAY ==
[2019-05-26 10:53] VITALS: BMI 38.9
--- NOTE | 2024-04-07 12:00 | PET_ITS ---
EXAMINATION: FDG PET-CT INDICATIONS: A 78-year-old female with history of lymphoma presenting for initial staging examination. COMPARISON EXAMINATION: None available INDEX LESION SIZE LUGANO SUV INTERPRETATION Retropharynx, bilateral-lateral and anterior neck 48.9-mm (largest) 5 10.4 (max) Fulfills quantitative criteria for viable neoplasm Left axilla (n=1) 11.3-mm 4 3.2 Fulfills quantitative criteria for viable neoplasm Left inguinal region 18.4-mm (largest) 5 11.8 (max) Fulfills quantitative criteria for viable neoplasm TECHNIQUE: Following the intravenous administration of 10.89 mCi of F-18 deoxyglucose via the left antecubital fossa, multiplanar image acquisitions of the neck, chest, abdomen and pelvis to level of mid thigh, obtained at one hour post radiopharmaceutical administration contemporaneously interpreted with the current CT of the neck, chest, abdomen and pelvis, to level of mid thigh, dated 04/07/24 via coregistration reveals: BLOOD GLUCOSE LEVEL:?? 117 mg/dl?HEIGHT:?63 inches?WEIGHT: 198 lbs. FINDINGS: Head/Neck: Facilitated uptake is noted in the midline, left of the midline retropharyngeal region, the left periauricular lymph node basin, the bilateral-lateral neck to include level IIA, the left lateral neck involving level IIB, the right anterior neck involving level IV. The calculated maximal standard uptake value is 10.4. The [place] Deauville score is 5. The maximal axial diameter of the largest metabolic, morphologic abnormality is 48.9-mm. The visualized portion of the cerebral cortex, cerebellar hemispheres and basal ganglia demonstrates uniform and preserved glucose metabolism. CHEST: Focal increased tracer uptake is noted in the left axilla generating a calculated maximal standard uptake value of 3.2. The [place] Deauville score is 4. The maximal axial diameter of the metabolic, morphologic abnormality is 11.3-mm. Pertinent chest CT findings are as follows. There is atherosclerotic calcification defined in the thoracic aorta without evidence of dilatation-aneurysm formation. Coronary arterial calcification is observed. Additional mediastinal soft tissue densities are ametabolic. There are no parenchymal densities-nodules defined in the right and left hemithorax with quantitatively significant increased FDG uptake. Abdomen/Pelvis: There is enhanced FDG uptake noted in the left inguinal region. The calculated maximal standard uptake value is 11.8. The [place] Deauville score is 5. The maximal axial diameter of the largest of two hypermetabolic nodules is 18.4-mm. Normal physiologic distribution of the radiopharmaceutical is apparent in the hepatic (3.0) and splenic parenchyma, both renal units, bladder and visualized intestinal tract. The abdomen and pelvis CT findings are as follows. Cholelithiasis is demonstrated. There is atherosclerotic calcification defined in the abdominal aorta without evidence of dilatation-aneurysm formation. Abdominal-pelvic arterial calcification is demonstrated. Calcification is disseminated in the bilateral lower hemipelvis. The uterus is not clearly identified. Skeletal: Degenerative changes are noted in the cervical, thoracic and lumbar spine without evidence of increased radiopharmaceutical concentration. Bilateral hip arthroplasties are defined. PET/PET/CT Tumor Base -Thigh Init IMPRESSION: 1. ABNORMAL EXAMINATION INDICATIVE OF MALIGNANT VIABLE NEOPLASM. 2. Increased radiopharmaceutical concentration defined in the bilateral lateral and anterior neck, the left axillary region and left inguinal lymph node basins, fulfill quantitative criteria for viable neoplasm. (Cheson et al, Journal of Clinical Oncology 32:3059, 2014). 3. No other quantitatively significant hypermetabolic abnormalities are noted. Electronic Signature Logan Leung D.O. Accurate Quantification of SUVs and standardized [place] scores for this report are calculated using the exclusive [employer], ([place].S. Patent No. [id number] [id number] [phone] patent [id number] [id number] ). Standardization and correction of the FDG SUV metric exclusively available with [employer] intellectual property, allow for vendor non-specific objective quantitative sequential FDG PET-CT comparison and otherwise unobtainable optimization of the sensitivity and specificity of the examination. [email or web address] Electronically Signed: Logan Leung DO at 8:16 EDT ,
== END | disposition home or self-care (01) ==
LOC: ONC 07:40
PROVIDERS: PCP Family Medicine
DX: C82.99 Follicular lymphoma, unspecified, extranodal and solid organ sites (principal)
CPT/HCPCS: 78815; A9552

== ENCOUNTER 2024-04-08 14:15 | Outpatient (RCR) | payer MEDICARE, OTHER, SELFPAY ==
[2019-05-26 10:53] VITALS: BMI 38.9
== END 2024-04-29 23:59 ==
LOC: NS 14:15
PROVIDERS: PCP Family Medicine; Visit Provider Internal Medicine Medical Oncology
DX: Z71.3 Dietary counseling and surveillance (principal)

== ENCOUNTER → 2024-04-13 | Outpatient (CLI) | payer MEDICARE, OTHER, SELFPAY ==
[2019-05-26 10:53] VITALS: BMI 38.9
--- NOTE | 2024-04-13 10:48 | ECHOCSONC_ITS ---
Reason For Study: Pre Chemo Procedure This was a 2D Doppler, Color Flow transthoracic echocardiogram. Myocardial strain analysis was performed in this exam to aid in the assessment of cardiac function. The study was technically difficult. Contrast injection was performed. Exam performed in department. Left Ventricle Normal LV size. The global longitudinal strain = -15.6% (abnormal). The estimated ejection fraction is 70 %. No evidence for diastolic dysfunction. No regional wall motion abnormalities noted. Right Ventricle Normal RV size. Normal systolic function. Atria Normal left atrium. Normal right atrium. No doppler evidence for ASD. Mitral Valve There is mild to moderate mitral annular calcification. There is no mitral valve stenosis. No mitral valve insufficiency. Tricuspid Valve There is no tricuspid stenosis. No tricuspid valve insufficiency. Unable to estimate RV systolic pressure due to inadequate jet, pulmonary artery pressure probably normal. Aortic Valve Trisinus/trileaflet aortic valve. Moderate diffuse aortic valve thickening. Mild aortic stenosis. Trivial aortic valve insufficiency. Pulmonic Valve There is no pulmonic valvular stenosis. Trivial pulmonic valve insufficiency. Great Vessels Normal aortic root. Pericardium/Pleural No pericardial effusion. Medication 22 gauge I.V. with prn adaptor inserted into left arm. Diluted definity 1ml given slow IV push to enhance endocardial definition. MMode/2D Measurements & Calculations LVIDd: 3.9 cm IVSd: 1.0 cm LVOT diam: 1.9 cm LVIDs: 2.8 cm LVPWd: 0.96 cm RVDd: 3.0 cm FS: 29.1 % LVOT area: 2.7 cm2 Ao root diam: 3.3 cm LAV(MOD-bp): 46.0 ml LVAd ap4: 29.0 cm2 ACS: 0.90 cm LAV(MOD-bp) Indexed: 23.7 ml/m2 LVLd ap4: 8.0 cm LAV(MOD-sp2): 40.9 ml EDV(MOD-sp4): 83.4 ml LAV(MOD-sp4): 44.3 ml EDV(sp4-el): 88.9 ml LVAs ap4: 18.5 cm2 LVLs ap4: 6.5 cm ESV(MOD-sp4): 42.7 ml ESV(sp4-el): 44.2 ml EF(MOD-sp4): 48.7 % EF(sp4-el): 50.3 % SV(MOD-sp4): 40.6 ml SV(sp4-el): 44.7 ml Aortic Valve Planimetry: 0.95 cm2 LA A4 area: 18.0 cm2 RA A4 area: 9.5 cm2 TAPSE: 1.1 cm Time Measurements MV dec time: 0.26 sec Doppler Measurements & Calculations MV E max nazario: 45.7 cm/sec Lat Peak E' Nazario: 6.7 cm/sec Med Peak E' Nazario: 5.8 cm/sec MV A max nazario: 93.6 cm/sec E/E' lat: 6.8 E/E' med: 7.9 MV E/A: 0.49 MV V2 max: 99.5 cm/sec MV P1/2t max nazario: 79.1 cm/sec Ao V2 max: 204.6 cm/sec MV max P.0 mmHg MV P1/2t: 105.2 msec Ao max P.8 mmHg MV V2 mean: 63.1 cm/sec MV dec slope: 220.1 cm/sec2 Ao V2 mean: 145.6 cm/sec MV mean P.8 mmHg MVA(P1/2t): 2.1 cm2 Ao mean P.6 mmHg MV V2 VTI: 21.9 cm Ao V2 VTI: 41.8 cm MVA(VTI): 2.4 cm2 AV (velocity ratio): 0.45 SARINA(I,D): 1.2 cm2 SARINA(V,D): 1.3 cm2 LV V1 max: 94.1 cm/sec SV(LVOT): 52.0 ml PA V2 max: 65.0 cm/sec LV V1 max P.6 mmHg LV V1 mean P.1 mmHg LV V1 mean: 68.3 cm/sec LV V1 VTI: 19.0 cm ECHO/ONC Echo Complete W/ Contrast Interpretation Summary The estimated ejection fraction is 70 %. No evidence for diastolic dysfunction. Mild aortic stenosis. Trivial aortic valve insufficiency. Ordering Physician: Edenilson Campoverde Referring Physician: Edenilson Campoverde Performed By: Nick Coleman RCS
== END | disposition home or self-care (01) ==
LOC: CVS 10:46
PROVIDERS: PCP Family Medicine; Referring Provider Internal Medicine Medical Oncology; Visit Provider Internal Medicine Medical Oncology
DX: C82.90 Follicular lymphoma, unspecified, unspecified site (principal); Z79.899 Other long term (current) drug therapy
CPT/HCPCS: 93306; 93356; Q9957; A4216; C8929

== ENCOUNTER 2024-04-24 05:56 | Day surgery (SDC) | payer MEDICARE, OTHER, SELFPAY ==
[2019-05-26 10:53] VITALS: BMI 38.9
[2024-04-24] VITALS (9 sets, daily range): BP systolic 105–146; BP diastolic 59–71; PULSE 75–86; RESP 16–18; TEMP 36.2–37.1; O2SAT 91–100; BMI 36.1
[2024-04-24 06:43] LABS: Bedside Glucose 100 mg/dL (74-106)
[2024-04-24] MEDS: Lactated Ringers 1,000 ML 15 ML IV (06:43)
--- NOTE | 2024-04-24 07:11 | PCM.HP.BLA ---
History and Physical Date of Admission: 04/24/24 Date of Service: 04/17/24 MR#: [id number] Acct: [id number] Name: TONI EMERSON Rep #: [id number] : 1945 Provider: Dr. Andria Smith MD Age/Sex: 78/F Location: [facility] Status: Signed Intake Vital Signs 04/13/2409:05 04/14/2408:16 04/17/2410:28 Height 5 ft 2 in 5 ft 2 in 5 ft 2 in Weight: 200 lb 8 oz 204 lb 1 oz BMI 36.6 37.3 BP 120/74 92/62 Blood Pressure Location Lt brachial Rt brachial Position Sitting Sitting Respiration 16 18 Pulse 80 73 Pulse Source Monitor Monitor Temp 97.8 F 97.4 F L Temp Source Temporal Pulse Oximetry (%) 95 97 Oxygen Delivery Method room air room air Intake Visit Reasons: PORT PLACEMENT Chief Complaint: port placement Accompanied by: Is patient in pain?: No Allergies adhesive tape Allergy (Verified 04/17/24 10:29) red, itchyatorvastatin (From Lipitor) Allergy (Verified 04/17/24 10:29) myalgiasIodinated Contrast Media (CT) Allergy (Verified 04/17/24 10:29) Shortness of breathPenicillins Allergy (Verified 04/17/24 10:29) Rashpravastatin Allergy (Verified 04/17/24 10:29) myalgias Medications ?Medication ?Instructions ?Recorded ?Confirmed ?Type aspirin 81 mg chewable tablet 81 mg PO DAILY health maintenance 12/13/17 04/17/24 History benazepril 20 mg tablet 20 mg PO DAILY blood pressure 12/13/17 04/17/24 History rosuvastatin 5 mg tablet 5 mg PO QHS cholesterol 12/13/17 04/17/24 History acetaminophen 500 mg tablet 1,000 mg PO Q8 PRN pain 12/18/17 04/17/24 History paroxetine HCl 30 mg tablet 30 mg PO DAILY 01/26/20 04/17/24 History clopidogrel 75 mg tablet (Plavix) 75 mg PO QDAY #90 tabs 01/02/22 04/17/24 Rx dicyclomine 10 mg capsule 10 mg PO BID 05/15/22 04/17/24 History isosorbide dinitrate 10 mg tablet See Rx Instructions .Route 03/13/23 04/17/24 Rx .COMPLEX #270 tabs metoprolol tartrate 25 mg tablet See Rx Instructions .Route 05/29/23 04/17/24 Rx .COMPLEX #180 TABLETS ascorbate calcium (vitamin C) 500 500 mg PO DAILY 06/18/23 04/17/24 History mg tablet cholecalciferol (vitamin D3) 25 25 mcg PO DAILY 06/18/23 04/17/24 History mcg (1,000 unit) capsule mecobalamin (vitamin B12) 1,000 1,000 mcg PO DAILY 06/18/23 04/17/24 History mcg chewable tablet metformin 500 mg tablet,extended 500 mg PO BID diabetes 06/18/23 04/17/24 History release 24 hr zinc acetate 50 mg (zinc) capsule 50 mg PO DAILY 06/18/23 04/17/24 History azelastine 137 mcg (0.1 %) nasal 2 spray intranasal BID #30 mL 11/21/23 04/17/24 Rx spray allopurinol 300 mg tablet 300 mg PO DAILY #30 tabs 04/08/24 04/17/24 Rx famotidine 40 mg tablet (Pepcid) 80 mg PO DAILY 04/08/24 04/17/24 History insulin glargine 100 unit/mL (3 10 unit subcut QPM 04/08/24 04/17/24 History mL) subcutaneous pen (Lantus Solostar U-100 Insulin) ondansetron 4 mg disintegrating 4 mg PO Q8H PRN nausea and 04/13/24 04/17/24 Rx tablet vomiting #30 tabs Have you fallen in the past year?: No PFSH Medical History Encounter for education Depression Upper GI bleed Atherosclerosis of coronary artery of [place] heart without angina pectoris Obesity Essential (primary) hypertension GERD (gastroesophageal reflux disease) Type 2 diabetes mellitus Hyperlipidemia Surgical History History of coronary artery stent placement (05/26/19) History of left heart catheterization (12/07/11) Hx of appendectomy History of laminectomy History of bilateral hip replacements History of total bilateral knee replacement History of hysterectomy H/O total hip arthroplasty Family History Father COPD (chronic obstructive pulmonary disease) Myocardial infarctionMother Diabetes CAD (coronary artery disease) Hx CABG Alzheimers disease CVA (cerebral vascular accident)Brother H/O angioplasty DiabetesBrother CVA (cerebral vascular accident)Son Diabetes Social History Smoking Status: Never smoker alcohol intake: never substance use type: does not use diet: diabetic caffeine: Yes Type: coffee Number of servings: 3 what type of physical activity do you participate in: other details: PT frequency: 3-4 times per week duration: 30-45 minutes/day seatbelt use: always do you feel safe at home: Yes HPI HPI HPI: 78-year-old female presents for port placement due to lymphoma. Patient had her first round of chemotherapy on 04/14/2024. Patient last chemotherapy is May 05, 2024. ROS General General: Yes weight change and fatigue; No appetite, colon cancer, breast cancer or weakness HEENT HEENT: Yes swollen glands; No difficulty swallowing, eye injury, eye surgery or hoarseness Endo Endocrine: Yes diabetes mellitus; No thyroid disease, thyroid cancer, Hair loss, heat intolerance or cold intolerance Skin Skin: No rash or changing moles Musc Musculoskeletal: Yes arthritis; No back problems, rheumatoid arthritis, gout or joint pain Cardio Cardiovascular: Yes heart disease and heart stent; No murmur, pacemaker, atrial fibrillation, high blood pressure, heart attack, palpitations, shortness of breat with exertion or chest pain Psych Psychiatric: Yes depression and anxiety; No hearing voices Resp Respiratory: No shortness of breath, No sleep apnea, No cough, No COPD, No asthma, No emphysema and No wheezing Gastro Gastrointestinal: No abdominal pain, No nausea or vomiting, No diarrhea, Yes constipation, No blood in stool, Yes acid reflux, No hemorrhoids, No ulcers, No gallbladder problem and No black,tarry stools Jose Carlos Hematologic: Yes blood thinners, No blood disorders, No bleeding, No anemia and No blood clots Additional Details: plavix and aspirin Neuro Neurologic: Yes numbness, Yes tingling and No weakness Exam Const General: cooperative, healthy appearing, comfortable and no acute distress HENDE Head: normocephalic and atraumatic Neck Neck: supple Chest Other: Palpation of upper chest normal bilaterally Resp Effort & Inspection: normal respiratory effort Cardio Rate: regular rate GI Inspection: non-distended Skin General: no rashes or lesions noted Neuro General: CN's II-XI intact bilaterally Extrem General: normal to inspection Psych Mental Status: mental status grossly normal Attitude: cooperative Assessment and Plan Assessment and Plan (1) Encounter for insertion of venous access port: Status: Acute (2) Follicular lymphoma grade 3a: Status: Acute Qualifiers: Lymphoma site: multiple regions Qualified Code(s): C82.38 - Follicular lymphoma grade IIIa, lymph nodes of multiple sites Comment: Stage III, both sides of the diaphragm, large nasopharyngeal mass. Discussed Follicular lymphoma stage III, treatment with Bendamustine and Rituxan because of need to decrease nasopharyngeal mass, prognosis which is good but dependent on response. Pt agrees to proceed. Plan I have discussed above with the patient- Port-a-Cath placement. Right possible left Patient has been counseled as to the risks/benefits of the procedure. I have explained the risks of the surgery, including but not limited to: infection, bleeding, injury to any blood vessels/nerves, injury to lungs (such as pneumothorax or hemothorax and need for chest tube), not having any access, nonfunctioning of port due to thrombosis, infection of port, etc. the patient understands and agrees to proceed. I have answered all the patient's questions to the patient?s satisfaction and the patient has no further questions. Andria Smith M.D. Pager: [phone] [facility] [address] [place] [address], [facility], [address] [place] [address] Office: [phone] Coding Level of Care Code Off vis,new,level 3 Diagnoses Encounter for insertion of venous access port Z45.2 Grade 3a follicular lymphoma of lymph nodes of multiple regions C82.38 Lymphoma site: multiple regions Clinical Quality Measures Falls Risk Screening/Assistive Devices Have you fallen in the past year?: No 04/17/24 5416 <Electronically signed by Andria Smith MD> Date Andria Smith MD
--- NOTE | 2024-04-24 07:13 | PCM.PRE.AN2 ---
ASA Classification* ASA Classification ASA Classification: 3 Assessment & Plan Anesthesia* Anesthesia Assessment Anesthesia Assessment: Discussed sedation and/or anesthesia options, risks, benefits, and alternatives with patient/parents/legal guardian/POA. Questions invited. The patient/parents/legal guardian/POA seems to understand and agrees to proceed with anesthesia plan. Reviewed the physical assessment, medical history, allergy history and patient home medications list prior to surgery/procedure/anesthetic and documented any changes. Performed airway and anesthesia risk assessments. Anesthesia Type Anesthesia Type: MAC Anesthesia Focused Assessment* Temperature: 97.6 F Pulse Rate: 86 Blood Pressure: 105/70 Respiratory Rate: 16 Pulse Ox: 98 Airway Assessment Mouth opens: >3 cm Mallampati Score: II Focused Labs Anesthesia Preop lab: CBC WBC 7.4 K/mm3 (4.4-11.0) 04/23/24 09:45 RBC 3.82 M/mm3 (4.2-5.4) L 04/23/24 09:45 Hgb 10.4 g/dL (12.0-15.0) L 04/23/24 09:45 Hct 32.2 % (37-47) L 04/23/24 09:45 Plt Count 294 K/mm3 (150-450) 04/23/24 09:45 CHEMISTRY Potassium 3.9 mmol/L (3.5-5.1) 04/23/24 09:45 Sodium 138 mmol/L (136-145) 04/23/24 09:45 Magnesium 2.2 mg/dL (1.6-2.6) 04/08/24 15:05 Phosphorus 3.6 mg/dL (2.5-4.9) 04/08/24 15:05 BUN 16 mg/dL (7-18) 04/23/24 09:45 Creatinine 0.87 mg/dL (0.55-1.02) 04/23/24 09:45 Glucose 157 mg/dL (74-106) H 04/23/24 09:45 POC Glucose 100 mg/dL (74-106) 04/24/24 06:25 COAG PT 13.8 SECONDS (11.7-14.9) 05/14/17 05:14 Pre-Assessment Diagnosis/Proposed Procedure Planned Operative Procedure(s): (R) Insertion, Vascular Port Right poss Left IJ Anesthesia History 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 When Was Last Pacemaker Check QUESTION #4 FULL TEXT: You/Your Family Experience fever (hyperthermia) with Anesthesia Last Oral Intake Last Oral intake: Last Oral Intake NPO since 18:00 04/24/24 06:34 Meds taken in AM with sips of water? Meds patient instructed to take am of surgery PONV PONV - agricultural service technician: PONV - agricultural service technician Female Yes 04/21/24 08:45 HX of Motion Sickness Yes 04/21/24 08:45 HX of N/V After Surgery Yes 04/21/24 08:45 Non-Smoker Yes 04/21/24 08:45 Duration of Surgery greater Yes 04/21/24 08:45 than 60 minutes Number of Risk Factors 5 04/21/24 08:45 PONV Score Severe Risk 04/21/24 08:45 Height & Weight Height & Weight: Anesthesia: Height & Weight Height 5 ft 2.5 in 04/24/24 06:34 Weight: 91 kg 04/24/24 06:34 Body Mass Index (BMI) 36.1 04/24/24 06:34 Respiratory Assessment Respiratory Assessment - agricultural service technician: Respiratory Tract Infection Hx - agricultural service technician Hx Respiratory Tract Infection No 04/21/24 08:45 STOP Sleep Apnea STOP Sleep Apnea - agricultural service technician: STOP Sleep Apnea - agricultural service technician Hx Hypertension Yes: CONTROLLED WITH MED 04/21/24 08:45 Hx Sleep Apnea No 04/21/24 08:45 CPAP No 09/07/19 04:28 BIPAP No 09/07/19 04:28 Do you snore loudly (louder No 04/21/24 08:45 than talking or can be heard Do you often feel tired/ No 04/21/24 08:45 fatigued/ sleepy during daytime? Has anyone observed you stop No 04/21/24 08:45 breathing during sleep? STOP Results Negative 04/21/24 08:45 QUESTION #5 FULL TEXT : Do you snore loudly (louder than talking or can be heard through closed doors)? 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 Specify any problems Hx of Preganancy in last 3 N/A 04/21/24 08:45 Months Nurse Filling Out Transfusion NBUCHER 04/21/24 08:45 & Questions: Date: 04/21/24 04/21/24 08:45 Time: 08:51 04/21/24 08:45 Patient unable to answer at this time (ie. confused, unrespo /Reproduction History /Reproductive History - agricultural service technician: /Reproductive Hx- agricultural service technician Hx Now No 04/21/24 08:45 Gestational Age (in weeks): EDC: Hx Hx Para Hx Section SAB No 04/21/24 08:45 Active Medications Active Medications: Current Medications Generic Name Dose Route Start Last Admin Trade Name Freq PRN Reason Stop Dose Admin Clindamycin Phosphate 900 mg in 50 mls @ 75 mls/hr 04/24/24 07:30 Cleocin IV 04/24/24 08:09 PREOP ONE Lactated Ringer's 1,000 mls @ 15 mls/hr 04/24/24 06:15 04/24/24 06:43 IV 15 mls/hr .Q48H JAMIE Administration PFSH Medical History Loss of hearing Wears hearing aid Wears glasses Wears contact lenses Wears dentures Cancer History of steroid therapy Arthritis High cholesterol Non-smoker History of stress test History of echocardiogram Cardiology follow-up encounter PONV (postoperative nausea and vomiting) Encounter for education Depression Upper GI bleed Atherosclerosis of coronary artery of [place] heart without angina pectoris Obesity Essential (primary) hypertension GERD (gastroesophageal reflux disease) Type 2 diabetes mellitus Hyperlipidemia Home Medications ?Medication ?Instructions ?Recorded ?Last Taken ?Type aspirin 81 mg chewable tablet 81 mg PO DAILY health maintenance 12/13/17 04/18/24 History benazepril 20 mg tablet 20 mg PO DAILY blood pressure 12/13/17 09/06/19 21:00 History rosuvastatin 5 mg tablet 5 mg PO QHS cholesterol 12/13/17 09/06/19 21:00 History acetaminophen 500 mg tablet 1,000 mg PO Q8 PRN pain 12/18/17 09/06/19 15:00 History paroxetine HCl 30 mg tablet 30 mg PO DAILY 01/26/20 04/24/24 History clopidogrel 75 mg tablet (Plavix) 75 mg PO QDAY #90 tabs 01/02/22 04/18/24 Rx dicyclomine 10 mg capsule 10 mg PO BID 05/15/22 Unknown History isosorbide dinitrate 10 mg tablet See Rx Instructions .Route 03/13/23 04/24/24 Rx .COMPLEX #270 tabs metoprolol tartrate 25 mg tablet See Rx Instructions .Route 05/29/23 04/24/24 Rx .COMPLEX #180 TABLETS ascorbate calcium (vitamin C) 500 500 mg PO DAILY 06/18/23 Unknown History mg tablet cholecalciferol (vitamin D3) 25 25 mcg PO DAILY 06/18/23 Unknown History mcg (1,000 unit) capsule mecobalamin (vitamin B12) 1,000 1,000 mcg PO DAILY 06/18/23 Unknown History mcg chewable tablet metformin 500 mg tablet,extended 500 mg PO BID diabetes 06/18/23 Unknown History release 24 hr zinc acetate 50 mg (zinc) capsule 50 mg PO DAILY 06/18/23 Unknown History allopurinol 300 mg tablet 300 mg PO DAILY #30 tabs 04/08/24 04/23/24 Rx famotidine 40 mg tablet (Pepcid) 80 mg PO DAILY 04/08/24 04/24/24 History insulin glargine 100 unit/mL (3 10 unit subcut QPM 04/08/24 Unknown History mL) subcutaneous pen (Lantus Solostar U-100 Insulin) ondansetron 4 mg disintegrating 4 mg PO Q8H PRN nausea and 04/13/24 Unknown Rx tablet vomiting #30 tabs Allergy/AdvReac Type Severity Reaction Status Date / Time adhesive tape Allergy red, itchy Verified 04/24/24 06:34 atorvastatin (From Lipitor) Allergy myalgias Verified 04/24/24 06:34 Iodinated Contrast Media (CT) Allergy Shortness Verified 04/24/24 06:34 of breath Penicillins Allergy Rash Verified 04/24/24 06:34 pravastatin Allergy myalgias Verified 04/24/24 06:34 Family History Father COPD (chronic obstructive pulmonary disease) Myocardial infarction Mother Diabetes CAD (coronary artery disease) Hx CABG Alzheimers disease CVA (cerebral vascular accident) Brother H/O angioplasty Diabetes Brother CVA (cerebral vascular accident) Son Diabetes Surgical History History of cardiac catheterization History of coronary artery stent placement (05/26/19) History of left heart catheterization (12/07/11) Hx of appendectomy History of laminectomy History of bilateral hip replacements History of total bilateral knee replacement History of hysterectomy H/O total hip arthroplasty Social History Smoking Status: Never smoker alcohol intake: never substance use type: does not use diet: diabetic caffeine: Yes Type: coffee Number of servings: 3 what type of physical activity do you participate in: other details: PT frequency: 3-4 times per week duration: 30-45 minutes/day seatbelt use: always do you feel safe at home: Yes Review of Systems (Anesthesia) ROS Narrative System reviewed and no additional complaints, except as documented.
[2024-04-24] MEDS: Clindamycin 900 MG/50 ML BAG 75 MG IV (07:34)
[2024-04-24] MEDS: Lidocaine 1% /Epi 1:100 (50ml) 50 ML VIAL (07:51)
[2024-04-24] MEDS: Bupivacaine Mpf 0.5% 30 ML VIAL (07:51)
[2024-04-24] MEDS: Heparin 10,000 UNITS/10 ML Vial 10000 UNITS (08:07)
--- NOTE | 2024-04-24 08:16 | PCM.OPRPT ---
Report of Operation Date of Procedure: 04/24/24 Pre-Operative Diagnosis: Z45.2, lymphoma Post-Operative Diagnosis: Same Surgery/Procedure Performed:: placement of right IJ Port-A-Cath Use of ultrasound Use of fluoroscopy Surgeon: Andria Smith Type of Anesthesia: Local MAC Anesthesiologist: Oumar Kaminski Special Medications: Clindamycin 900 mg IV x 1 Estimated Blood Loss (mL): < 10 cc Description of Procedure: After informed consent was given, the patient was brought to the operating room and placed in the supine position. Appropriate time out protocol was followed. Patient was then given IV conscious sedation for anesthesia. The patient's right upper chest and neck were then prepped with a surgical skin preparation and sterile surgical drapes were placed. After proper landmarks were ascertained, the skin at the upper right chest area was then infiltrated with 1:1 mixture of 1% lidocaine with epinephrine and 0.5% marcaine. A needle trocar was then inserted into the right internal jugular vein with ultrasound guidance-multiple vessels were viewed with u/s and the right IJ was chosen-- and there was good aspiration of venous blood. A wire was then threaded into the needle trocar and this was visualized under fluoroscopy to ensure that the wire was in the superior vena cava. Once this was done, then the needle trocar was removed. A small skin miranda was made with an 11 blade knife at the wire entrance site. The dilator with the introducer sheath attached was then placed over the wire into the right internal jugular vein via the Seldinger technique and this was visualized under fluoroscopy. The dilator and sheath were in proper position as visualized by fluoroscopy. A subcutaneous pocket was then created caudad to the catheter insertion site. A transverse skin incision was made after the skin and subcutaneous tissues were infiltrated with local anesthetic. Blunt dissection was then used to create a space large enough for placement of the subcutaneous port. The catheter was then tunneled into the subcutaneous pocket. The wire and dilator were then removed. The catheter was then threaded into the introducer sheath and was positioned with its tip at the junction of the superior vena cava and the right atrium as visualized under fluoroscopy. The excess catheter was transected. The catheter was then attached to the subcutaneous port using manufacturers guidelines. The catheter was flushed with a heparin saline mixture prior to placement. Hemostasis was carefully controlled with electrocautery. The port was sutured to the subcutaneous fascia using 2-0 Vicryl suture at two sites. The port was then placed in the subcutaneous pocket. The incision were reapproximated with interrupted subdermal 3-0 vicryl sutures. The skin was reapproximated with 3-0 nylon suture in a interrupted fashion. Steristrips were used for reinforcement of the skin closure at IJ insertion site and a sterile opsite dressings were applied. The patient tolerated the procedure well. Grafts/Implants Used: Bard PowerPort isp M.R.I. 6Fr Lot [id number] Complications none
--- NOTE | 2024-04-24 08:18 | DCINST_ITS ---
Discharge Instructions Procedure Port-A-Cath Diet Discharge Diet: Light diet - advance as tolerated Activity May shower in (days): 5 (Keep port site clean and dry x5 days. Neck incision okay to get wet after 1 day. Okay to lower shower and upper sponge bath. OR okay to taper off port site with a Ziploc bag to shower) Lifting Restrictions: No lifting > 15 pounds for 3 days with the arm on the side of the port Dressing / Incision Call your doctor if your incision/area has: Continuous Slow Oozing, Sudden Increased Bleeding, Increased Pain/ Swelling, Increased Redness, Foul Smelling Discharge and Swelling at the incision site Call your doctor if you observe: Fever of 101 or Higher Change Dressing in: 2 days (2-3 days- port site; ok to remove neck opsite in 1 day) Follow Up Care Please Follow Up With: Andria Smith MD When: In 10 days for permanent suture removal?call office for appointment Test Results: Test results from this visit will be discussed in further detail at your follow- up appointment, if applicable. Discharge Plan Admission Attending Provider: Andria Smith Primary Care Provider: Lisa Gamble Instructions Print Language: [place] Discharge Orders/Prescriptions Prescriptions: New tramadol 50 mg tablet 50 mg PO Q6H PRN (Reason: pain) 3 Days Qty: 5 0RF Continued paroxetine HCl 30 mg tablet 30 mg PO DAILY Patient Comments: take 1 tablet by mouth every morning metformin 500 mg tablet extended release 24 hr 500 mg PO BID Patient Comments: DIABETES dicyclomine 10 mg capsule 10 mg PO BID mecobalamin (vitamin B12) 1,000 mcg tablet,chewable 1,000 mcg PO DAILY ascorbate calcium (vitamin C) 500 mg tablet 500 mg PO DAILY cholecalciferol (vitamin D3) 25 mcg (1,000 unit) capsule 25 mcg PO DAILY zinc acetate 50 mg (zinc) capsule 50 mg PO DAILY insulin glargine [Lantus Solostar U-100 Insulin] 100 unit/mL (3 mL) insulin pen 10 unit subcut QPM Rx Instructions: 10 units at bedtime 45 units in the am famotidine [Pepcid] 40 mg tablet 80 mg PO DAILY allopurinol 300 mg tablet 300 mg PO DAILY Qty: 30 0RF ondansetron 4 mg tablet,disintegrating 4 mg PO Q8H PRN (Reason: nausea and vomiting) Qty: 30 1RF acetaminophen 500 mg tablet 1,000 mg PO Q8 PRN (Reason: pain) Patient Comments: Pain aspirin 81 MG tablet,chewable 81 mg PO DAILY benazepril 20 MG tablet 20 mg PO DAILY Patient Comments: TAKE ONE TABLET BY MOUTH EVERY DAY rosuvastatin 5 MG tablet 5 mg PO QHS isosorbide dinitrate 10 mg tablet See Rx Instructions .ROUTE .COMPLEX Qty: 270 3RF Dose Instruction: take 1 tablet by mouth three times a day for blood pressure Rx Instructions: take 1 tablet by mouth three times a day for blood pressure metoprolol tartrate 25 mg tablet See Rx Instructions .ROUTE .COMPLEX Qty: 180 3RF Dose Instruction: take 1 tablet by mouth twice a day for blood pressure Rx Instructions: take 1 tablet by mouth twice a day for blood pressure Held clopidogrel [Plavix] 75 mg tablet 75 mg PO QDAY Qty: 90 3RF Hold Instructions: Resume on 04/25/24. Referrals / Follow Up: Lisa Gamble DO [Primary Care Provider] - Disposition Disposition (needs filled in before D/C Order can be placed): Home, Self Care
--- NOTE | 2024-04-24 08:22 | PCM.POST.ANE ---
Anesthesia: Postop Eval I Current Vital Signs Temperature: 98.1 F Pulse Rate: 78 Blood Pressure: 145/63 Respiratory Rate: 16 Pulse Ox: 97 Oxygen Delivery Method: Nasal Cannula (2 L of oxygen) Assessment Airway patent: Yes Spontaneous unlabored respirations: Yes Mental status: Awake and Calm nausea: No Vomiting: No Anesthesia Complication: No Fluid Hydration Crystalloid volume administer (ml): 500 Total IV fluid infused: 500 Progress Note Anesthesia document: Postop Eval 1 completed: Yes
--- NOTE | 2024-04-24 08:33 | RAD_ITS ---
STUDY: X-RAY CHEST REASON FOR EXAM: Female, 78 years old. PORT INSERTION TECHNIQUE: Single AP portable view of the chest. COMPARISON: Comparison is made with prior chest radiograph dated October 09, 2020. FINDINGS: A right-sided portacatheter has been placed. The tip is in the midportion of the superior vena cava. Scattered calcified granulomas. There is no demonstrated pleural abnormality. Normal size heart. Normal mediastinum and joyce. Normal visualized pulmonary arteries. There is atherosclerotic tortuosity of the aortic arch and descending thoracic aorta. There are diffuse degenerative changes of the visualized thoracic spine. Normal visualized ribs, clavicles, and shoulders. There is no demonstrated abnormality of the visualized soft tissue structures of the upper abdomen. RAD/Chest 1 View (Portable) IMPRESSION: Status post right portacatheter placement. The tip is in the midportion of the superior vena cava. Electronically Signed: Shubham Patel MD at 8:51 EDT ,
--- NOTE | 2024-04-24 09:01 | PRE.ANES_ITS ---
Assessment & Plan Anesthesia* Anesthesia Assessment Anesthesia Assessment: Discussed sedation and/or anesthesia options, risks, benefits, and alternatives with patient/parents/legal guardian/POA. Questions invited. The patient/parents/legal guardian/POA seems to understand and agrees to proceed with anesthesia plan. Reviewed the physical assessment, medical history, allergy history and patient home medications list prior to surgery/procedure/anesthetic and documented any changes. Performed airway and anesthesia risk assessments. Anesthesia Focused Assessment* Temperature: 98.7 F Pulse Rate: 75 Blood Pressure: 146/59 Respiratory Rate: 16 Pulse Ox: 94 Focused Labs Anesthesia Preop lab: CBC WBC 7.4 K/mm3 (4.4-11.0) 04/23/24 09:45 RBC 3.82 M/mm3 (4.2-5.4) L 04/23/24 09:45 Hgb 10.4 g/dL (12.0-15.0) L 04/23/24 09:45 Hct 32.2 % (37-47) L 04/23/24 09:45 Plt Count 294 K/mm3 (150-450) 04/23/24 09:45 CHEMISTRY Potassium 3.9 mmol/L (3.5-5.1) 04/23/24 09:45 Sodium 138 mmol/L (136-145) 04/23/24 09:45 Magnesium 2.2 mg/dL (1.6-2.6) 04/08/24 15:05 Phosphorus 3.6 mg/dL (2.5-4.9) 04/08/24 15:05 BUN 16 mg/dL (7-18) 04/23/24 09:45 Creatinine 0.87 mg/dL (0.55-1.02) 04/23/24 09:45 Glucose 157 mg/dL (74-106) H 04/23/24 09:45 POC Glucose 100 mg/dL (74-106) 04/24/24 06:25 COAG PT 13.8 SECONDS (11.7-14.9) 05/14/17 05:14 Pre-Assessment Diagnosis/Proposed Procedure Planned Operative Procedure(s): (R) Insertion, Vascular Port Right poss Left IJ Anesthesia History Anesthesia History - job analyst: Anesthesia History - job analyst Hx Hospitalization No 04/21/24 08:45 Any Problems With Anesthesia No 04/21/24 08:45 Cholinesterase deficiency No 04/21/24 08:45 You/Your Family Experience No 04/21/24 08:45 fever (hyperthermia) with Relationship Recent Exposure to Contagious No 04/24/24 06:34 Disease Does patient have nerve No 04/21/24 08:45 stimulator Patient instructed to have device shut off --Does patient have Pacemaker No 04/24/24 06:34 or ICD? When Was Last Pacemaker Check QUESTION #4 FULL TEXT: You/Your Family Experience fever (hyperthermia) with Anesthesia Last Oral Intake Last Oral intake: Last Oral Intake NPO since 18:00 04/24/24 06:34 Meds taken in AM with sips of water? Meds patient instructed to take am of surgery PONV PONV - job analyst: PONV - job analyst Female Yes 04/21/24 08:45 HX of Motion Sickness Yes 04/21/24 08:45 HX of N/V After Surgery Yes 04/21/24 08:45 Non-Smoker Yes 04/21/24 08:45 Duration of Surgery greater Yes 04/21/24 08:45 than 60 minutes Number of Risk Factors 5 04/21/24 08:45 PONV Score Severe Risk 04/21/24 08:45 Height & Weight Height & Weight: Anesthesia: Height & Weight Height 5 ft 2.5 in 04/24/24 06:34 Weight: 91 kg 04/24/24 06:34 Body Mass Index (BMI) 36.1 04/24/24 06:34 Respiratory Assessment Respiratory Assessment - job analyst: Respiratory Tract Infection Hx - job analyst Hx Respiratory Tract Infection No 04/21/24 08:45 STOP Sleep Apnea STOP Sleep Apnea - job analyst: STOP Sleep Apnea - job analyst Hx Hypertension Yes: CONTROLLED WITH MED 04/21/24 08:45 Hx Sleep Apnea No 04/21/24 08:45 CPAP No 09/07/19 04:28 BIPAP No 09/07/19 04:28 Do you snore loudly (louder No 04/21/24 08:45 than talking or can be heard Do you often feel tired/ No 04/21/24 08:45 fatigued/ sleepy during daytime? Has anyone observed you stop No 04/21/24 08:45 breathing during sleep? STOP Results Negative 04/24/24 08:21 QUESTION #5 FULL TEXT : Do you snore loudly (louder than talking or can be heard through closed doors)? Tobacco Use History Tobacco Use History - job analyst: Tobacco Use History - job analyst Tobacco Use Smoking Status Never smoker 04/21/24 08:45 Hx Tobacco Use No 04/21/24 08:45 Years Smoking Packs Smoked per Day Smoking Cessation Date was within the last 15 years Hx Smoking Cessation Date Hx Smoking Cessation Counseling Hematologic Medial History Hematologic Hx - job analyst: Hematologic Medical Hx - hat conditioner Hx of Blood Transfusion Yes 04/21/24 08:45 Hx of Transfusion in last 3 No 04/21/24 08:45 Months Date of Last Transfusion (if within last 3 months) Ever experience any problems No 04/21/24 08:45 with transfusion(s)? Specify any problems Hx of Preganancy in last 3 N/A 04/21/24 08:45 Months Nurse Filling Out Transfusion NBUCHER 04/21/24 08:45 & Questions: Date: 04/21/24 04/21/24 08:45 Time: 08:51 04/21/24 08:45 Patient unable to answer at this time (ie. confused, unrespo /Reproduction History /Reproductive History - job analyst: /Reproductive Hx- job analyst Hx Now No 04/21/24 08:45 Gestational Age (in weeks): EDC: Hx Hx Para Hx Section SAB No 04/21/24 08:45 Active Medications Active Medications: Current Medications Generic Name Dose Route Start Last Admin Trade Name Freq PRN Reason Stop Dose Admin Lactated Ringer's 1,000 mls @ 15 mls/hr 04/24/24 06:15 04/24/24 06:43 IV 15 mls/hr .Q48H JAMIE Administration PFSH Medical History Loss of hearing Wears hearing aid Wears glasses Wears contact lenses Wears dentures Cancer History of steroid therapy Arthritis High cholesterol Non-smoker History of stress test History of echocardiogram Cardiology follow-up encounter PONV (postoperative nausea and vomiting) Encounter for education Depression Upper GI bleed Atherosclerosis of coronary artery of [place] heart without angina pectoris Obesity Essential (primary) hypertension GERD (gastroesophageal reflux disease) Type 2 diabetes mellitus Hyperlipidemia Home Medications ?Medication ?Instructions ?Recorded ?Last Taken ?Type aspirin 81 mg chewable tablet 81 mg PO DAILY health maintenance 12/13/17 04/18/24 History benazepril 20 mg tablet 20 mg PO DAILY blood pressure 12/13/17 09/06/19 21:00 History rosuvastatin 5 mg tablet 5 mg PO QHS cholesterol 12/13/17 09/06/19 21:00 History acetaminophen 500 mg tablet 1,000 mg PO Q8 PRN pain 12/18/17 09/06/19 15:00 History paroxetine HCl 30 mg tablet 30 mg PO DAILY 01/26/20 04/24/24 History clopidogrel 75 mg tablet (Plavix) 75 mg PO QDAY #90 tabs 01/02/22 04/18/24 Rx dicyclomine 10 mg capsule 10 mg PO BID 05/15/22 Unknown History isosorbide dinitrate 10 mg tablet See Rx Instructions .Route 03/13/23 04/24/24 Rx .COMPLEX #270 tabs metoprolol tartrate 25 mg tablet See Rx Instructions .Route 05/29/23 04/24/24 Rx .COMPLEX #180 TABLETS ascorbate calcium (vitamin C) 500 500 mg PO DAILY 06/18/23 Unknown History mg tablet cholecalciferol (vitamin D3) 25 25 mcg PO DAILY 06/18/23 Unknown History mcg (1,000 unit) capsule mecobalamin (vitamin B12) 1,000 1,000 mcg PO DAILY 06/18/23 Unknown History mcg chewable tablet metformin 500 mg tablet,extended 500 mg PO BID diabetes 06/18/23 Unknown History release 24 hr zinc acetate 50 mg (zinc) capsule 50 mg PO DAILY 06/18/23 Unknown History allopurinol 300 mg tablet 300 mg PO DAILY #30 tabs 04/08/24 04/23/24 Rx famotidine 40 mg tablet (Pepcid) 80 mg PO DAILY 04/08/24 04/24/24 History insulin glargine 100 unit/mL (3 10 unit subcut QPM 04/08/24 Unknown History mL) subcutaneous pen (Lantus Solostar U-100 Insulin) ondansetron 4 mg disintegrating 4 mg PO Q8H PRN nausea and 04/13/24 Unknown Rx tablet vomiting #30 tabs tramadol 50 mg tablet 50 mg PO Q6H PRN pain 3 days #5 04/24/24 Unknown Rx tabs Allergy/AdvReac Type Severity Reaction Status Date / Time adhesive tape Allergy red, itchy Verified 04/24/24 06:34 atorvastatin (From Lipitor) Allergy myalgias Verified 04/24/24 06:34 Iodinated Contrast Media (CT) Allergy Shortness Verified 04/24/24 06:34 of breath Penicillins Allergy Rash Verified 04/24/24 06:34 pravastatin Allergy myalgias Verified 04/24/24 06:34 Family History Father COPD (chronic obstructive pulmonary disease) Myocardial infarction Mother Diabetes CAD (coronary artery disease) Hx CABG Alzheimers disease CVA (cerebral vascular accident) Brother H/O angioplasty Diabetes Brother CVA (cerebral vascular accident) Son Diabetes Surgical History History of cardiac catheterization History of coronary artery stent placement (05/26/19) History of left heart catheterization (12/07/11) Hx of appendectomy History of laminectomy History of bilateral hip replacements History of total bilateral knee replacement History of hysterectomy H/O total hip arthroplasty Social History Smoking Status: Never smoker alcohol intake: never substance use type: does not use diet: diabetic caffeine: Yes Type: coffee Number of servings: 3 what type of physical activity do you participate in: other details: PT frequency: 3-4 times per week duration: 30-45 minutes/day seatbelt use: always do you feel safe at home: Yes Review of Systems (Anesthesia) ROS Narrative System reviewed and no additional complaints, except as documented.
--- NOTE | 2024-04-24 09:01 | PCM.POSTANE2 ---
Anesthesia Postop Eval I Sum Postop Eval Completion status Anesthesia document: Postop Eval 1 completed: Yes Anesthesia Postop Eval I Summary Anesthesia Postop Eval I Summary: Anesthesia Postop Eval I: Assessment Summary Airway patent Yes 04/24/24 08:24 Spontaneous unlabored Yes 04/24/24 08:24 respirations Mental status Awake,Calm 04/24/24 08:24 nausea No 04/24/24 08:24 Vomiting No 04/24/24 08:24 Anesthesia Postop Eval I: Fluid Summary Crystalloid volume administer 500 04/24/24 08:24 (ml) Colloids volume administered ( ml) Blood Product volume administered (ml) Total IV fluid infused 500 04/24/24 08:24 Anesthesia Postop Eval I: Summary Notes Anesthesia Complication No 04/24/24 08:24 Anesthesia Complication Comment: Post-operative progress note Anesthesia: Postop Eval II Evaluation Mental status: Awake and Calm Pain Level: 1 nausea: No Vomiting: No Complications Anesthesia Complication: No
== END 2024-04-24 09:37 | disposition home or self-care (01) ==
LOC: SDC 05:57 → AC 05:57
PROVIDERS: PCP Family Medicine; Referring Provider Surgery; Visit Provider Surgery
PROC: (CPT 36561; principal; 2024-04-24 07:15)
DX: Z45.2 Encounter for adjustment and management of vascular access device (principal); C82.38 Follicular lymphoma grade IIIa, lymph nodes of multiple sites; E11.9 Type 2 diabetes mellitus without complications; Z79.4 Long term (current) use of insulin; E66.9 Obesity, unspecified; E78.00 Pure hypercholesterolemia, unspecified; I25.10 Atherosclerotic heart disease of native coronary artery without angina pectoris; I10 Essential (primary) hypertension; F32.A Depression, unspecified; Z68.36 Body mass index [BMI] 36.0-36.9, adult; Z79.82 Long term (current) use of aspirin; Z79.899 Other long term (current) drug therapy; Z79.01 Long term (current) use of anticoagulants; Z79.84 Long term (current) use of oral hypoglycemic drugs; Z95.5 Presence of coronary angioplasty implant and graft
CPT/HCPCS: 36561; 71045; 77001; 82962; J7120; J2405

== ENCOUNTER → 2024-05-04 | Outpatient (CLI) | payer MEDICARE, OTHER, SELFPAY ==
[2019-05-26 10:53] VITALS: BMI 38.9
== END | disposition home or self-care (01) ==
PROVIDERS: PCP Family Medicine; Referring Provider Family Medicine; Visit Provider Family Medicine
DX: R30.0 Dysuria (principal)
CPT/HCPCS: 87077; 87086; 87088; 87186

== ENCOUNTER → 2024-06-29 | Outpatient (CLI) | payer MEDICARE, OTHER, SELFPAY ==
[2019-05-26 10:53] VITALS: BMI 38.9
== END | disposition home or self-care (01) ==
LOC: LABSPEC 13:04
PROVIDERS: PCP Family Medicine; Referring Provider Family Medicine; Visit Provider Family Medicine
DX: R82.90 Unspecified abnormal findings in urine (principal)
CPT/HCPCS: 87077; 87086; 87088; 87186

== ENCOUNTER → 2024-11-24 | Outpatient (CLI) | payer MEDICARE, OTHER, SELFPAY ==
[2019-05-26 10:53] VITALS: BMI 38.9
--- NOTE | 2024-11-24 08:32 | NEURO ---
NCS and/or EMG Patient Report Ordering Doctor: Carol Ann Antnuez DATE OF SERVICE: 11/24/24 Clinical Summary: 78 year old female patient presenting with symptoms of pain in both feet. Since September, she also has developed some weakness in the left foot. She has a history of diabetes as well as bilateral knee and hip replacements in the past but not recently. Nerve Conduction Studies Summary: All SNAP's were absent in the bilateral lower extremities. The left peroneal-EDB CMAP distal latency was prolonged with reduced amplitudes at the ankle and fibular head. The left peroneal-EDB CMAP amplitude was absent at the knee. The left peroneal motor conduction velocity was reduced at the fibular head. The left peroneal-TA CMAP distal latency was prolonged. The left tibial-AH CMAP distal latency was prolonged. The left tibial motor conduction velocity was reduced. The right tibial AH F-wave onset latency was prolonged. Needle Examination Summary: Needle examination of select muscles in the bilateral lower extremities demonstrated increased insertional activity and spontaneous activity (positive sharp waves and fibrillation potentials) in the left tibialis anterior, left peroneus longus, bilateral medial gastrocnemius, and left flexor digitorum longus muscle. There was a higher proportion of motor unit action potentials with reduced recruitment, increased amplitude, increased duration, and polyphasia in the left tibialis anterior, left medial gastrocnemius, and right flexor digitorum longus muscles. Impression: This is an abnormal bilateral lower extremity study. There is electrodiagnostic evidence of a predominantly axonal, sensorimotor, length-dependent, peripheral polyneuropathy with active denervation. 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 Recommend imaging such as neuromuscular ultrasound to confirm localization of a left peroneal nerve entrapment. Multi Select Codes Neurology Neurology Interp Codes: 19447-32 Musc test done w/n test comp (interp) (2) and 91540-58 Nrv cndj test 9-10 studies (interp)
== END | disposition home or self-care (01) ==
LOC: PSN 06:44
PROVIDERS: PCP Family Medicine; Referring Provider Podiatrist; Visit Provider Podiatrist
DX: M21.372 Foot drop, left foot (principal); G64 Other disorders of peripheral nervous system
CPT/HCPCS: 95886; 95912

== ENCOUNTER 2024-12-29 20:06 | Inpatient (IN) | payer MEDICARE, OTHER, SELFPAY ==
[2019-05-26 10:53] VITALS: BMI 38.9
[2024-12-29 20:09] VITALS: BP 152/66; PULSE 71; RESP 16; TEMP 36.8; O2SAT 95; BMI 39.9
--- NOTE | 2024-12-29 20:53 | RAD_ITS ---
PROCEDURE: PELVIS 1 OR 2 VIEWS 12/29/2024 REASON FOR EXAM: INJURY/PAIN TECHNIQUE: 1 view(s) of the pelvis. COMPARISON: None FINDINGS: Hardware: Status post bilateral hip arthroplasties. Bones: No acute fracture. Degenerative changes of the pubic symphysis Joints: No dislocation. soft tissues: Small phleboliths. Other: RAD/Pelvis 1 or 2 Views IMPRESSION: Status post bilateral hip arthroplasty. No acute fracture. Reading Location: [facility]
--- NOTE | 2024-12-29 20:53 | RAD_ITS ---
PROCEDURE: FEMUR MIN 2 VIEWS 12/29/2024 REASON FOR EXAM: INJURY/PAIN TECHNIQUE: 4 view(s) of the left femur. COMPARISON: None FINDINGS: Bones: Status post left hip arthroplasty with deformity of the proximal femur. There is lucency around the prosthesis, suspicious for loosening. No acute fracture is demonstrated. Joints: Normal alignment at the hip and knee. Soft tissues: Soft tissues are unremarkable. Other: RAD/Femur Min 2 Views IMPRESSION: Status post left hip arthroplasty with suspected loosening. No acute fracture. Reading Location: [facility]
--- NOTE | 2024-12-29 20:54 | ED.VIS.LOWEX ---
HPI History of Present Illness HPI Narrative: Patient presents with pain to her left hip and thigh that became worse today. Patient states she was doing more walking than she normally does yesterday. Patient states her pain is sharp and stabbing. Patient states it is worse with weightbearing. Patient states it is better with rest. Patient mitts to some paresthesias in her left lower extremity. Patient states she was recently diagnosed with neuropathy. The patient has had prior open reduction internal fixation of the femur and hip fracture. Patient denies any fevers or chills. Patient denies any recent trauma or injury. Chief Complaint: Lower Extremity Injury Informant: patient Onset/Context/Timing Onset: Today Context: Gradual Onset Timing: Continuous Quality of Pain: Stabbing Location: Left hip and thigh Worsened by: Weightbearing Relieved by: Rest Associated Symptoms Associated Symptoms: Positive for Parasthesia; Negative for Weakness or Loss of Funtion [facility] Medical History Foot drop Loss of hearing Wears hearing aid Wears glasses Wears contact lenses Wears dentures Cancer History of steroid therapy Arthritis High cholesterol Non-smoker History of stress test History of echocardiogram Cardiology follow-up encounter PONV (postoperative nausea and vomiting) Encounter for education Depression Upper GI bleed Atherosclerosis of coronary artery of [place] heart without angina pectoris Obesity Essential (primary) hypertension GERD (gastroesophageal reflux disease) Type 2 diabetes mellitus Hyperlipidemia Home Medications ?Medication ?Instructions ?Recorded ?Last Taken ?Type aspirin 81 mg chewable tablet 81 mg PO DAILY health maintenance 12/13/17 04/18/24 History benazepril 20 mg tablet 20 mg PO DAILY blood pressure 12/13/17 09/06/19 21:00 History rosuvastatin 5 mg tablet 5 mg PO QHS cholesterol 12/13/17 09/06/19 21:00 History acetaminophen 500 mg tablet 1,000 mg PO Q8 PRN pain 12/18/17 09/06/19 15:00 History paroxetine HCl 30 mg tablet 30 mg PO DAILY 01/26/20 04/24/24 History clopidogrel 75 mg tablet (Plavix) 75 mg PO QDAY #90 tabs 01/02/22 04/18/24 Rx Held on 04/24/24. Instructions: Resume on 04/25/24. dicyclomine 10 mg capsule 10 mg PO BID 05/15/22 Unknown History ascorbate calcium (vitamin C) 500 500 mg PO DAILY 06/18/23 Unknown History mg tablet cholecalciferol (vitamin D3) 25 25 mcg PO DAILY 06/18/23 Unknown History mcg (1,000 unit) capsule mecobalamin (vitamin B12) 1,000 1,000 mcg PO DAILY 06/18/23 Unknown History mcg chewable tablet metformin 500 mg tablet,extended 500 mg PO BID diabetes 06/18/23 Unknown History release 24 hr zinc acetate 50 mg (zinc) capsule 50 mg PO DAILY 06/18/23 Unknown History famotidine 40 mg tablet (Pepcid) 80 mg PO DAILY 04/08/24 04/24/24 History insulin glargine 100 unit/mL (3 10 unit subcut QPM 04/08/24 Unknown History mL) subcutaneous pen (Lantus Solostar U-100 Insulin) tramadol 50 mg tablet 50 mg PO Q6H PRN pain 3 days #5 04/24/24 Unknown Rx tabs isosorbide dinitrate 10 mg tablet See Rx Instructions .Route 05/14/24 Unknown Rx .COMPLEX #270 tabs metoprolol tartrate 25 mg tablet See Rx Instructions .Route 05/18/24 Unknown Rx .COMPLEX #180 TABLETS Allergy/AdvReac Type Severity Reaction Status Date / Time adhesive tape Allergy red, itchy Verified 12/29/24 20:13 atorvastatin (From Lipitor) Allergy myalgias Verified 12/29/24 20:13 Iodinated Contrast Media (CT) Allergy Shortness Verified 12/29/24 20:13 of breath Penicillins Allergy Rash Verified 12/29/24 20:13 pravastatin Allergy myalgias Verified 12/29/24 20:13 Family History Father COPD (chronic obstructive pulmonary disease) Myocardial infarction Mother Diabetes CAD (coronary artery disease) Hx CABG Alzheimers disease CVA (cerebral vascular accident) Brother H/O angioplasty Diabetes Brother CVA (cerebral vascular accident) Son Diabetes Surgical History History of cardiac catheterization History of coronary artery stent placement (05/26/19) History of left heart catheterization (12/07/11) Hx of appendectomy History of laminectomy History of bilateral hip replacements History of total bilateral knee replacement History of hysterectomy H/O total hip arthroplasty Social History (Updated 12/30/24 @ 00:[address] Chey Clark MD) household members: none Smoking Status: Never smoker alcohol intake: never substance use type: does not use diet: diabetic caffeine: Yes Type: coffee Number of servings: 3 what type of physical activity do you participate in: other details: PT frequency: 3-4 times per week duration: 30-45 minutes/day seatbelt use: always do you feel safe at home: Yes ROS ROS ED Constitutional Constitutional ED: Denies chills or fever(s) Eyes Eyes: Denies blurry vision or change in vision ENT ENT ED: Denies rhinorrhea or sore throat Cardiovascular Cardiovascular: Denies chest pain or palpitations Respiratory/Chest Respiratory/Chest: Denies cough or dyspnea Gastrointestinal Gastrointestinal: Denies nausea or vomiting Genitourinary Genitourinary ED: Denies dysuria or hematuria Musculoskeletal Musculoskeletal: Denies back pain or neck pain Integumentary Denies abscess or rash Neurologic Neurologic: Denies headache(s) or weakness Allergic/Immunologic Allergic/Immunologic ED: Denies mouth swelling or urticaria EXAM Physical Exam Const Vital Signs: 12/29/24 20:09 12/29/24 22:06 Temperature 98.2 F Temperature Source Oral Pulse Rate 71 70 Respiratory Rate 16 17 Blood Pressure 152/66 H 186/75 H Blood Pressure Mean 94 112 Pulse Ox 95 99 Oxygen Delivery Method Room Air Room Air Positive well nourished and well developed Constitutional Narrative: BMI is 40.0 General Appearance ED: well developed and NAD HEENT Reports moist mucous membranes Neck full ROM and supple Extremity Extremity Narrative: There is tenderness over the anterior and lateral aspects of the left hip. There is no obvious deformity noted. There is no pain with internal/external rotation. Strength is 5/5 bilaterally in lower extremities. There are no sensory deficits noted. Posterior tibial pulses are equal bilaterally. There is no calf tenderness noted. Neuro oriented x3, CN's II-XII intact bilaterally, moves all extremities and no sensory deficits noted Sensorium / Orientation: alert Motor Exam: strength 5/5 throughout Psych mental status grossly normal MDM MDM MDM Narrative Medical decision making narrative: Differential diagnosis includes fracture, prosthesis loosening, sprain, contusion, and arthritis. X-rays of the left hip and femur will be obtained to assess for fracture and loosening of the prosthesis. Radiography Diagnostic Testing: Clinical Impression(s) from Imaging Studies Femur X-Ray 12/29/24 20:53 IMPRESSION: Status post left hip arthroplasty with suspected loosening. No acute fracture. Reading Location: [facility] Pelvis X-Ray 12/29/24 20:53 IMPRESSION: Status post bilateral hip arthroplasty. No acute fracture. Reading Location: [facility] X-rays of the left femur were obtained. There are 4 views. On my independent interpretation, there is no acute fracture. There is no soft tissue swelling. There is previous left hip arthroplasty. There is questionable loosening of the prosthesis. Radiologist also interpreted the x-rays and agrees. X-rays of his pelvis were obtained. There is 1 view. On my independent interpretation, there are bilateral hip prosthesis. There is no acute fracture noted. Radiologist also interpreted the x-rays and agrees. Treatment and Re-Evaluation Narrative: Patient was given injection of morphine. Patient was feeling better on reevaluation. Patient will be ambulated with a walker here in the emergency department. If the patient is able to ambulate without difficulty with a walker, I feel that the patient can go on with oral analgesics and outpatient follow-up. However, if the patient is able to ambulate with a walker, patient will need to be admitted. Patient was unable to ambulate here in the emergency department with a walker. Because of this, I contacted the hospitalist. She will admit the patient for observation. Patient and family understood and were agreeable with the plan. All questions were answered. Discharge Plan Triage Chief Complaint: Lower Extremity Injury ED Provider: Enrique Morelos Dx/Rx/DC Orders Clinical Impression: Hip pain, left, Unable to ambulate Prescriptions: No Action paroxetine HCl 30 mg tablet 30 mg PO DAILY Patient Comments: take 1 tablet by mouth every morning metformin 500 mg tablet extended release 24 hr 500 mg PO BID Patient Comments: DIABETES dicyclomine 10 mg capsule 10 mg PO BID mecobalamin (vitamin B12) 1,000 mcg tablet,chewable 1,000 mcg PO DAILY ascorbate calcium (vitamin C) 500 mg tablet 500 mg PO DAILY cholecalciferol (vitamin D3) 25 mcg (1,000 unit) capsule 25 mcg PO DAILY zinc acetate 50 mg (zinc) capsule 50 mg PO DAILY insulin glargine [Lantus Solostar U-100 Insulin] 100 unit/mL (3 mL) insulin pen 10 unit subcut QPM Rx Instructions: 10 units at bedtime 45 units in the am famotidine [Pepcid] 40 mg tablet 80 mg PO DAILY acetaminophen 500 mg tablet 1,000 mg PO Q8 PRN (Reason: pain) Patient Comments: Pain aspirin 81 MG tablet,chewable 81 mg PO DAILY benazepril 20 MG tablet 20 mg PO DAILY Patient Comments: TAKE ONE TABLET BY MOUTH EVERY DAY rosuvastatin 5 MG tablet 5 mg PO QHS tramadol 50 mg tablet 50 mg PO Q6H PRN (Reason: pain) 3 Days Qty: 5 0RF clopidogrel [Plavix] 75 mg tablet 75 mg PO QDAY Qty: 90 3RF isosorbide dinitrate 10 mg tablet See Rx Instructions .ROUTE .COMPLEX Qty: 270 3RF Dose Instruction: take 1 tablet by mouth three times a day for blood pressure Rx Instructions: take 1 tablet by mouth three times a day for blood pressure metoprolol tartrate 25 mg tablet See Rx Instructions .ROUTE .COMPLEX Qty: 180 3RF Dose Instruction: take 1 tablet by mouth twice a day for blood pressure Rx Instructions: take 1 tablet by mouth twice a day for blood pressure Primary Care Provider: Lisa Gamble Referrals: Lisa Gamble DO [Primary Care Provider] - Print Language: [place] Disposition Disposition: Acute Care Hospital [facility]
[2024-12-29] MEDS: Morphine 4 MG/ML Syringe IM (22:00)
[2024-12-29 22:06] VITALS: BP 186/75; PULSE 70; RESP 17; O2SAT 99
[2024-12-30] VITALS (10 sets, daily range): BP systolic 103–169; BP diastolic 55–71; PULSE 68–80; RESP 16–18; TEMP 36.4–37.1; O2SAT 94–98; BMI 36.8; BMI 35.5
--- NOTE | 2024-12-30 00:07 | PCM.HP.STD ---
HPI - General General Date of Admission: 12/30/24 Date of Service: 12/30/24 Chief Complaint: Intractable L hip pain, debility. HPI Narrative The patient is a 79 y/o F w/ PMHx: CKD stage II per GFR trending, Anxiety and Depression, Morbid obesity, HTN, HLD, GERD w/ Hx prior GI bleed, Diabetes mellitus type II, Chronic anemia/Fe deficiency anemia, CAD s/p PCI 2018, Chronic L foot drop and BL LE neuropathy following with Neurology w/ recent 11/24/24 nerve conduction studies noted to be abnormal with evidence of predominantly axonal, sensorimotor, length dependent, peripheral polyneuropathy with active denervation with recommended follow-up neuromuscular ultrasound to confirm localization of left peroneal nerve entrapment, Osteoarthritis status post bilateral total hip replacement previously, Follicular lympoma grade 3A following with Dr. 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 ED on 12/30/2024 with history of pain to the left hip and thigh worsening today which has been ongoing reporting that she has been more active and walking more over the last 48 hours with pain more sharp and stabbing worse with weightbearing and improved with rest with chronic persistent paresthesias especially the left lower extremity with recent diagnosis of neuropathy but given ongoing persistent pain prompted ED evaluation. Currently in the ED she initially rates her pain at 8 of 10 in severity. In the ED they attempted to ambulate the patient with a walker and she was unable to do so. In the ED upon evaluation at rest post medication she denies pain but notes onset severe pain with movement attempts and any weight bearing attempts. She denies having had pain like this but less severe ongoing. She notes she has not had hip pain for nearly 5 years. Workup in the ED included T98.2, heart 71, BP 152/66, respiratory rate 16, 95% on room air, plain film of the pelvis with status post bilateral hip arthroplasty with no acute fracture, plain film of the left femur with status post left hip arthroplasty with possible loosening with no acute fracture. In the ED patient ministered morphine 4 mg IM x 1. PFSH Medical History Foot drop Loss of hearing Wears hearing aid Wears glasses Wears contact lenses Wears dentures Cancer History of steroid therapy Arthritis High cholesterol Non-smoker History of stress test History of echocardiogram Cardiology follow-up encounter PONV (postoperative nausea and vomiting) Encounter for education Depression Upper GI bleed Atherosclerosis of coronary artery of [place] heart without angina pectoris Obesity Essential (primary) hypertension GERD (gastroesophageal reflux disease) Type 2 diabetes mellitus Hyperlipidemia Home Medications ?Medication ?Instructions ?Recorded ?Last Taken ?Type aspirin 81 mg chewable tablet 81 mg PO DAILY health maintenance 12/13/17 04/18/24 History benazepril 20 mg tablet 20 mg PO DAILY blood pressure 12/13/17 09/06/19 21:00 History rosuvastatin 5 mg tablet 5 mg PO QHS cholesterol 12/13/17 09/06/19 21:00 History acetaminophen 500 mg tablet 1,000 mg PO Q8 PRN pain 12/18/17 09/06/19 15:00 History paroxetine HCl 30 mg tablet 30 mg PO DAILY 01/26/20 04/24/24 History clopidogrel 75 mg tablet (Plavix) 75 mg PO QDAY #90 tabs 01/02/22 04/18/24 Rx Held on 04/24/24. Instructions: Resume on 04/25/24. dicyclomine 10 mg capsule 10 mg PO BID 05/15/22 Unknown History ascorbate calcium (vitamin C) 500 500 mg PO DAILY 06/18/23 Unknown History mg tablet mecobalamin (vitamin B12) 1,000 1,000 mcg PO DAILY 06/18/23 Unknown History mcg chewable tablet metformin 500 mg tablet,extended 500 mg PO BID diabetes 06/18/23 Unknown History release 24 hr zinc acetate 50 mg (zinc) capsule 50 mg PO DAILY 06/18/23 Unknown History famotidine 40 mg tablet (Pepcid) 80 mg PO DAILY 04/08/24 04/24/24 History insulin glargine 100 unit/mL (3 10 unit subcut QPM 04/08/24 Unknown History mL) subcutaneous pen (Lantus Solostar U-100 Insulin) tramadol 50 mg tablet 50 mg PO Q6H PRN pain 3 days #5 04/24/24 Unknown Rx tabs isosorbide dinitrate 10 mg tablet See Rx Instructions .Route 05/14/24 Unknown Rx .COMPLEX #270 tabs metoprolol tartrate 25 mg tablet See Rx Instructions .Route 05/18/24 Unknown Rx .COMPLEX #180 TABLETS Allergy/AdvReac Type Severity Reaction Status Date / Time adhesive tape Allergy red, itchy Verified 12/29/24 20:13 atorvastatin (From Lipitor) Allergy myalgias Verified 12/29/24 20:13 Iodinated Contrast Media (CT) Allergy Shortness Verified 12/29/24 20:13 of breath Penicillins Allergy Rash Verified 12/29/24 20:13 pravastatin Allergy myalgias Verified 12/29/24 20:13 Family History Father COPD (chronic obstructive pulmonary disease) Myocardial infarction Mother Diabetes CAD (coronary artery disease) Hx CABG Alzheimers disease CVA (cerebral vascular accident) Brother H/O angioplasty Diabetes Brother CVA (cerebral vascular accident) Son Diabetes Surgical History History of cardiac catheterization History of coronary artery stent placement (05/26/19) History of left heart catheterization (12/07/11) Hx of appendectomy History of laminectomy History of bilateral hip replacements History of total bilateral knee replacement History of hysterectomy H/O total hip arthroplasty Social History household members: none Smoking Status: Never smoker alcohol intake: never substance use type: does not use diet: diabetic caffeine: Yes Type: coffee Number of servings: 3 what type of physical activity do you participate in: other details: PT frequency: 3-4 times per week duration: 30-45 minutes/day seatbelt use: always do you feel safe at home: Yes ROS ROS Narrative Admission Review of Systems: CONSTITUTIONAL: No weight loss, fever, chills, + weakness or fatigue. HEENT: Eyes: No visual loss, blurred vision, double vision or yellow sclerae. Ears, Nose, Throat: No hearing loss, sneezing, congestion, runny nose or sore throat. SKIN: No rash or itching, lesions, wounds. CARDIOVASCULAR: No chest pain, chest pressure or chest discomfort, edema, palpitations, orthopnea, syncopal events. RESPIRATORY: No shortness of breath, cough or sputum, wheezing, hemoptysis. GASTROINTESTINAL: No anorexia, nausea, vomiting or diarrhea, abdominal pain, melena, BRBPR. GENITOURINARY: No dysuria, frequency, urgency or retention. NEUROLOGICAL: No headache, dizziness, syncope, paralysis, ataxia, numbness or tingling in the extremities, focal weakness, change in bowel or bladder control, seizure. MUSCULOSKELETAL: + muscle, back pain, joint pain or stiffness. HEMATOLOGIC: + Chronic anemia, easy bleding/bruising. LYMPHATICS: No enlarged nodes. No history of splenectomy. PSYCHIATRIC: + history of anxiety and depression. ENDOCRINOLOGIC: No reports of sweating, cold or heat intolerance. No polyuria or polydipsia. ALLERGIES: No history of asthma, hives, eczema or rhinitis. Vital Signs Vital Signs Vital Signs: 12/29/24 20:09 12/29/24 22:06 Temperature 98.2 F Temperature Source Oral Pulse Rate 71 70 Respiratory Rate 16 17 Blood Pressure 152/66 H 186/75 H Blood Pressure Mean 94 112 Pulse Ox 95 99 Oxygen Delivery Method Room Air Room Air Weight Weight: 218 lb 7.649 oz Body Mass Index (BMI) 39.9 Physical Exam Narrative Physical Examination: General: Awake, alert, oriented x 3 and cooperative, laying in the bed, fatigued, notes pain controlled currently without movement. Skin: Normal color, normal turgor, no icterus, no cyanosis. HEENT: AT/NC, EOMI, PERRLA, mildly dry MM, no carotid bruits or JVD noted. Lungs: Mildly diminished, greater bases, appropriate effort, no rales, ronchi or wheezing. Heart: Regular rate and rhythm; no gallop, rub audible. Abdomen: Soft, morbidly obese, NTTP, ND, on the hyperactive BS, no appreciated HSM. Extremities: No cyanosis, clubbing, or edema, mild discomfort over the anterior and lateral aspect of the left hip, able to rotate, no obvious sensation deficits. Neurological: Patient awake, alert, oriented as noted, cognitive function intact; pupils equally reactive to light and accommodation, cranial nerves grossly normal, moving all 4 extremities, no focal deficits, strength moderately to severely globally decreased given acute presentation, primarily pain onset to the left hip with weightbearing attempts and some with palpation of the anterior and lateral region. Psychiatric: Affect appears fatigued, no acute evidence of depressive or anxiety feelings but does have underlying history. Results Imaging Radiology Impression Femur X-Ray 12/29/24 20:53 IMPRESSION: Status post left hip arthroplasty with suspected loosening. No acute fracture. Reading Location: [facility] Pelvis X-Ray 12/29/24 20:53 IMPRESSION: Status post bilateral hip arthroplasty. No acute fracture. Reading Location: [facility] Assessment & Plan Assessment/Plan (1) Hip pain, left: PLAN: Plan The patient is a 79 y/o F w/ PMHx: CKD stage II per GFR trending, Anxiety and Depression, Morbid obesity, HTN, HLD, GERD w/ Hx prior GI bleed, Diabetes mellitus type II, Chronic anemia/Fe deficiency anemia, CAD s/p PCI 2018, Chronic L foot drop and BL LE neuropathy following with Neurology w/ recent 11/24/24 abnormal LLE nerve conduction studies, Osteoarthritis status post bilateral total hip replacement previously, Hx Follicular lympoma grade 3A following with Dr. Campoverde who presents to the [facility] ED on 12/30/2024 with history of pain to the left hip and thigh worsening today which has been ongoing reporting that she has been more active and walking more over the last 48 hours with pain more sharp and stabbing worse with weightbearing and improved with rest with chronic persistent paresthesias especially the left lower extremity with recent diagnosis of neuropathy. #1. Intractable left hip pain complicated by chronic neuropathy, debility, adult failure to thrive: Will admit to medical surgical floor, maintain on fall precautions, initiate low-dose gabapentin regimen, initiate oral/IV pain regimen, PT/OT/case management consulted for discharge planning, pending response may need to consider orthopedic surgery involvement given possible loosening device and certainly may require further CT imaging to further assess. #2. Chronic anemia/iron deficiency anemia: Admission CBC requested, baseline hemoglobin noted to be primarily 10-12, MCV normally normocytic, clarifying but on current list does not appear to be on iron supplementation any longer, will continue to trend. #3. Chronic Kidney Disease Stage II per GFR trending but is certainly vacillated: Admission BUN/Cr pending upon requested evaluation of patient but GFR has primarily been consistent with stage II, baseline renal function 0.6-0.8. #4. CAD: Status post PCI 2018, continue aspirin, Plavix, statin, benazepril, metoprolol home regimen. #5. Diabetes mellitus type II: Hold oral home regimen, continue home insulin regimen, ADA diet, accu checks w/ ISS. #6. Hypertension: Continue home regimen including metoprolol, isosorbide, benazepril, PRN hydralazine. #7. Hyperlipidemia: Continue patient home statin therapy. #8. Morbid Obesity: Weight loss and lifestyle changes encouraged. #9. Anxiety and depression: We will continue patient on paroxetine regimen. #10. GERD, history of previous GI bleed: Currently per list on famotidine only, will continue. Clarifying to be certain as dose is significantly elevated. 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 DVT prophylaxis: Lovenox. #13. CODE status: Patient MARY is her children present and living will is currently in place. Discussed CODE status at length including difference between FULL code, DNR-CCA and DNR-CC status. Following discussions about the differences in these status, requested DNR-CCA, no intubation which was clarified with examples. Advanced Care Planning Face to Face Time: 16 minutes. Charges/Coding Visit Charges Inpatient E&M: 65839 Init Hosp L2 Procedures Hospitalists Procedures: 04046 Advncd Care Plan 30 Min
[2024-12-30] MEDS: 0.9% Normal Saline (1000mL) 1,000 ML 100 ML IV (01:44)
[2024-12-30] MEDS: Gabapentin 100 MG Capsule PO ×3 (01:47→13:22)
[2024-12-30] MEDS: tiZANidine HCl 2 MG Tablet 4 MG PO (01:49)
[2024-12-30] MEDS: Arthritis Pain Compound 60 CLICK TUBE TOPICAL ×3 (02:16→22:08)
[2024-12-30] MEDS: Isosorbide DN 10 MG Tablet PO (06:58)
[2024-12-30] MEDS: tiZANidine HCl 2 MG Tablet PO ×3 (06:59→22:15)
[2024-12-30 07:21] LABS: Bedside Glucose 154 mg/dL (74-106)
[2024-12-30] MEDS: Insulin Lispro 100 UNIT/ML INSULN.PEN SC ×4 (07:26→22:08)
[2024-12-30 07:34] LABS: Absolute Lymphocyte Count 1.03 X10^3/uL (0.83-4.51); Absolute Neutrophil Count 2.5 X10^3/uL (2.0-7.7); Basophil# 0.05 X10^3/uL; Basophil% 1.2 % (0-1); Eosinophil# 0.23 X10^3/uL; Eosinophils% 5.4 % (0-5); Hematocrit 33.5 % (37-47); Hemoglobin 11.2 g/dL (12.0-15.0); Lymphocyte # 1.03 X10^3/ul (0.83-4.51); Lymphocyte % 24.1 % (19-41); Mean Corp Hgb Conc 33.4 g/dL (32-36); Mean Corpuscular Hgb 30.1 pg (27.0-32.0); Mean Corpuscular Volume 90.1 fL (81-99); Mean Platelet Vol. 9.5 fl (6.2-12.0); Monocyte# 0.48 X10^3/uL; Monocyte% 11.2 % (0-10); NRBC Flagged by Analyzer 0 % (0-5); Neutrophil # 2.48 X10^3/uL (2.7-7.7); Neutrophil % 57.9 % (47-70); Platelet Count 222 K/mm3 (150-450); RBC Distribution Width CV 12.6 % (11.6-14.6); RBC Distribution Width SD 41.9 fl (35.1-43.9); Red Blood Count 3.72 M/mm3 (4.2-5.4); White Blood Count 4.3 K/mm3 (4.4-11.0)
[2024-12-30 08:02] LABS: ALB/GLOB Ratio 1.8 RATIO (0.9-2.4); AST(SGOT) 19 U/L (<=31); Alanine Aminotransfer ALT/SGPT 14 U/L (<=34); Albumin, Serum 3.6 g/dL (3.4-4.8); Alkaline Phosphatase 78 U/L (35-104); Anion Gap 9 (5-15); BUN 21 mg/dL (4-19); Calcium,Total 8.8 mg/dL (7.6-11.0); Carbon Dioxide 25.3 mmol/L (21.0-32.0); Chloride 104 mmol/L (98-108); Creatinine, Serum 0.71 mg/dL (0.70-1.20); EST Glomerular Filtration Rate 87 (>60); Estimated Creatinine Clearance 63.03 ml/min (50-250); Glucose 165 mg/dL (70-99); Potassium 4.2 mmol/L (3.3-5.1); Protein, Total 5.6 g/dL (5.9-8.4); Sodium Level 138 mmol/L (133-145); Total Bilirubin 0.39 mg/dL (0.00-1.30)
[2024-12-30] MEDS: Aspirin 81 MG TAB.CHEW PO (08:32)
[2024-12-30] MEDS: Dicyclomine 10 MG Capsule PO ×2 (08:33→22:11)
[2024-12-30] MEDS: Menthol/Lanolin/Calamine/Znox 113 GM Tube 1 APPLIC TOPICAL ×4 (08:34→22:08)
[2024-12-30] MEDS: Enoxaparin 40 MG/0.4 ML Syringe SC (08:35)
[2024-12-30] MEDS: Famotidine 20 MG Tablet 40 MG PO ×2 (08:36→22:11)
[2024-12-30] MEDS: PARoxetine 10 MG Tablet 30 MG PO (08:37)
[2024-12-30] MEDS: Clopidogrel Bisulfate 75 MG Tablet PO (08:38)
--- NOTE | 2024-12-30 08:48 | PN.HOSP_ITS ---
Reason for Visit Reason for Visit: Diagnoses Pain in left hip (12/30/24) Objective Data Objective Data Vital Signs: Vital Signs Temp Pulse Resp BP Pulse Ox O2 Del Method 98.6 F 68 18 158/68 H 96 Room Air 12/30/24 06:57 12/30/24 06:57 12/30/24 06:57 12/30/24 06:57 12/30/24 06:57 12/30/24 06:57 Oxygen Delivery Method Room Air Weight: 200 lb 6.403 oz Body Mass Index (BMI) 35.5 Intake & Output: Intake and Output for Last 24 Hours 12/28/24 12/29/24 12/30/24 23:59 23:59 23:59 Output Total 300 / 300 Balance -300 / -300 Lab / Micro Data 12/30/24 07:11 12/30/24 07:11 Labs: Laboratory Results - last 24 hr 12/30/24 00:19: Magnesium 2.0 12/30/24 07:02: POC Glucose 154 H 12/30/24 07:11: WBC 4.3 L, RBC 3.72 L, Hgb 11.2 L, Hct 33.5 L, MCV 90.1, MCH 30.1, MCHC 33.4, RDW Std Deviation 41.9, RDW Coeff of Sridhar 12.6, Plt Count 222, MPV 9.5, Immature Gran % (Auto) 0.200, Neut % (Auto) 57.9, Lymph % (Auto) 24.1, [place] % (Auto) 11.2 H, Eos % (Auto) 5.4 H, Baso % (Auto) 1.2 H, Absolute Neuts (auto) 2.5, Absolute Lymphs (auto) 1.03, Nucleated RBC % 0, Sodium 138, Potassium 4.2, Chloride 104, Carbon Dioxide 25.3, Anion Gap 9, BUN 21 H, Creatinine 0.71, Estim Creat Clear Calc 63.03, Est GFR (MDRD) Non-Af 87, B UN/Creatinine Ratio 30.0 H, Glucose 165 H, Calcium 8.8, Total Bilirubin 0.39, AST 19, ALT 14, Alkaline Phosphatase 78, Total Protein 5.6 L, Albumin 3.6, G lobulin 2.0 L, Albumin/Globulin Ratio 1.8 Radiography Diagnostic Testing: Radiology Impression Femur X-Ray 12/29/24 20:53 IMPRESSION: Status post left hip arthroplasty with suspected loosening. No acute fracture. Reading Location: [facility] Pelvis X-Ray 12/29/24 20:53 IMPRESSION: Status post bilateral hip arthroplasty. No acute fracture. Reading Location: [facility] Physical Exam Narrative Seen and examined. Patient has history of multiple left hip surgery. Bilateral hip replacement. Bilateral TKR. Had BM yesterday. Noted to have blood pressure on low normal. She feels pain vaguely all around the left hip joint anteriorly lateral and posteriorly. Not able to bear weight on left hip. Physical exam General: Alert, Oriented x3, Cooperative. BMI 35.5 kg/m? HEENT: Atraumatic, PERRLA, EOMI, Normocephalic Oral: No Gingival or Mucosal Lesions/ Ulcerations Neck: Supple, No JVD, Negative Carotid Bruits Chest wall/Lungs: Air entry diminished in bilateral lung bases. No crepitation/rhonchi Cardiovascular: Regular rate, Regular Rhythm, Normal S1, Normal S2. Systolic Abdomen: Bowel Sounds Present, Soft, Non Tender, Non-Distended : No dysuria. No renal angle tenderness. No suprapubic tenderness. Extremities: No edema, Capillary Refill Less than 3 Seconds Skin: No rashes, No breakdown Musculoskeletal: Tenderness around left lateral aspect of left femur but no significant tenderness around left hip joint. ROM restricted for left hip joint Neurological: Cranial nerves II-XII grossly intact, DTR 2+/4. No acute focal neurological deficit. Psych/Mental Status: Normal Affect, Appropriate. Assessment & Plan Assessment/Plan (1) Hip pain, left: PLAN: Plan The patient is a 79 y/o F was admitted with left hip pain and thigh and acute on chronic, got worse with unable to bear weight on left hip on the day of admission. Described her pain sharp and stabbing worse with the weightbearing complain of paresthesia in left lower extremity with recent diagnosis of neuropathy. Had prior ORIF of femur and hip fracture. No fever or chills. No recent injury or trauma. #1. Intractable left hip pain most likely due to loose screws/prosthesis, complicated by chronic neuropathy, debility, adult failure to thrive: Patient admitted to [facility]. Orthopedic surgery Dr. Oh/Dr. Solis Meek consulted. He felt pelvic x-ray shows no acute fracture but suspected loosening of the screws. response may need to consider orthopedic surgery involvement given possible loosening device and certainly may require further CT imaging to further assess. #2. Chronic anemia/iron deficiency anemia: Mild anemia H&H 11.2 to 11.9 g%. On baseline #3. CKD stage II: Admission BUN/Cr on baseline renal function 0.6-0.8. #4. CAD: Status post PCI 2018, continue aspirin, Plavix, statin, benazepril, metoprolol home regimen. #5. Diabetes mellitus type II: Hold oral home regimen, continue home insulin regimen, ADA diet, accu checks w/ ISS. /: Glucose 100 in the morning. Lantus at bedtime dose is decreased. #6. Hypertension: Continue home regimen including metoprolol, isosorbide, benazepril, PRN hydralazine. /: Blood pressure on low normal. Holding parameters ordered #7. Hyperlipidemia: Continue patient home statin therapy. #8. Morbid Obesity: Weight loss and lifestyle changes encouraged. #9. Anxiety and depression: We will continue patient on paroxetine regimen. #10. GERD, history of previous GI bleed: Currently per list on famotidine only, will continue. Clarifying to be certain as dose is significantly elevated. 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 DVT prophylaxis: Lovenox. #13. CODE status: Patient MARY is her children present and living will is currently in place. Discussed CODE status at length including difference between FULL code, DNR-CCA and DNR-CC status. Following discussions about the differences in these status, requested DNR-CCA, no intubation which was clarified with examples. Charges/Coding Visit Charges Inpatient E&M: 98038 Subs Hosp L2
[2024-12-30] MEDS: 0.45% Normal Saline 1,000 ML 100 ML IV (11:29)
--- NOTE | 2024-12-30 11:39 | CASEMGMT ---
CORY COSTA Assessment Face to Face with patient for initial transition planning/care coordination assessment. RN CM introduced self and role at [facility], pt voices understanding. Pt is A&Ox4 and is resting comfortably in bed and is calm. Care providers, pharmacy, and demographics verified. Admitting dx: Intractable Lt Hip Pain, Adult FTT LACE Strata: 2 PCP: Lisa Gamble Specialists: Janes (Cardio), Frankie (ENT), Althea (Ortho) Preferred Pharmacy: [facility] Insurance: [facility] A/B, Physician [place] Prescription Benefit: Yes LNOK: Sai Herrera (Son and HCPOA per the pt), Elder Herrera (son) Living Arrangements: Pt lives alone in a single story home with 2 steps to enter with a handrail ADLs/IADLs: Pt states that she is independent at baseline Transportation: Self, son. Denies concerns DME: Pt states that she has a functioning CBGM and a BGM as a backup with sufficient supplies. Pt also states that she has access to a FWW, Cane, crutches, BP Machine, pulse ox, walk-in shower with a shower chair, handheld shower, and grab bars. HHC/SNF: Reports HH Hx through [facility] in [address] [facility] TCU or [facility] in 2017 Pt?s goal: Home Plan: TBD. Pt states that is too early to tell what she will need or want at the time of DC. Anticipate eventual DC home once medically ready, follow for HH vs OP Tx. Current 6-Click score is 15. PT eval has been help d/t awaiting ortho consult. Pt denies further needs at this time. CM to follow. Mable TAMAYO RN, CM
[2024-12-30 12:38] LABS: Erythrocyte Sedimentation Rate 12 mm/hr (0-30)
[2024-12-30] MEDS: Metoprolol Tartrate 25 MG Tablet PO ×2 (13:18→22:11)
--- NOTE | 2024-12-30 13:19 | MRI_ITS ---
CLINICAL HISTORY: Thigh pain, possible infection, previous left hip replacement. Previous surgery left hip/femur 8 years ago. Unable to bear weight. No recent injury. History of lymphoma. COMPARISON: None. TECHNIQUE: Multi planar multi sequence MR imaging of the left femur is obtained. No IV contrast given. FINDINGS: Hip arthroplasty is present. Surrounding the prosthetic components, the bones around the hip prosthesis, there is signal, contiguous with the proximal bony femoral adjacent tissues and the extra osseous soft tissues, there is abnormal hyperintense signal. Incompletely imaged at the lower extent of the exam there is abnormal appearing hyperintense T2/FLAIR signal in the distal femur medullary compartment. Normal fatty marrow normally undergoes fat saturation on the T2 fat-sat and the STIR sequence MRI/Lower Ext/No Jt/w/o IMPRESSION: Stir and T2 abnormal hyperintense signal, especially in the soft tissues surrou nding the hip implant and also in the distal 3rd of the medullary compartment of the left femur. Recommend correlation with plain film and postcontrast imaging of the left femu r. Consultation with infectious disease may be helpful. [facility]
[2024-12-30 13:40] LABS: Bedside Glucose 174 mg/dL (74-106)
--- NOTE | 2024-12-30 14:41 | NURSING ---
to MRI via bed
--- NOTE | 2024-12-30 16:14 | NURSING ---
All documentation by nursing associate Conchis Atwood reviewed by vocational nursing instructor Verito ALICIAN, RN.
--- NOTE | 2024-12-30 16:23 | CASEMGMT ---
Met with patient to complete HAMMOND form. HAMMOND form explained to patient who voiced understanding and signed form. Original form placed in pt?s chart and copy provided to patient. Skylar Praajpati, Discharge Planning Asst
--- NOTE | 2024-12-30 16:42 | CONS.ORTHO ---
HPI Consult Data Date of Consult: 12/30/24 HPI Narrative HPI Narrative: TONI EMERSON, is a 79 F who presents with a history of significant left hip pain onset December 29, 2024. She states that over the past months or possibly year she has had some intermittent aching pain at the left hip region. This has been random. She thinks possibly related to weather changes. She has been diagnosed with some type of neuropathy involving her lower extremities. She does have an appointment with a neurologist. She does have some weakness of her left foot reportedly told she has a foot drop. She says the pain was 8 out of 10 yesterday. She was so painful she could not move because of left hip pain. They called the emergency squad to bring her in. Her pain is now much better with pain medication. Reportedly she has not received any antibiotics. She denies fever chills nausea vomiting or weight loss. She denies any signs of infection throughout her body. No recent dental or bladder infections. Patient has had reportedly 3 left hip surgeries. These were in 2016. Most recent hip surgery was August 28, 2017. Dr. Nickerson and Dr. Oh have done her hip surgeries. She has also had back surgery in November 2015 for spinal stenosis [facility] Medical History Foot drop Loss of hearing Wears hearing aid Wears glasses Wears contact lenses Wears dentures Cancer History of steroid therapy Arthritis High cholesterol Non-smoker History of stress test History of echocardiogram Cardiology follow-up encounter PONV (postoperative nausea and vomiting) Encounter for education Depression Upper GI bleed Atherosclerosis of coronary artery of tribe heart without angina pectoris Obesity Essential (primary) hypertension GERD (gastroesophageal reflux disease) Type 2 diabetes mellitus Hyperlipidemia Home Medications ?Medication ?Instructions ?Recorded ?Last Taken ?Type aspirin 81 mg chewable tablet 81 mg PO DAILY health maintenance 12/13/17 04/18/24 History benazepril 20 mg tablet 20 mg PO DAILY blood pressure 12/13/17 09/06/19 21:00 History rosuvastatin 5 mg tablet 5 mg PO QHS cholesterol 12/13/17 09/06/19 21:00 History acetaminophen 500 mg tablet 1,000 mg PO Q8 PRN pain 12/18/17 09/06/19 15:00 History paroxetine HCl 30 mg tablet 30 mg PO DAILY 01/26/20 04/24/24 History clopidogrel 75 mg tablet (Plavix) 75 mg PO QDAY #90 tabs 01/02/22 04/18/24 Rx dicyclomine 10 mg capsule 10 mg PO BID 05/15/22 Unknown History ascorbate calcium (vitamin C) 500 500 mg PO DAILY 06/18/23 Unknown History mg tablet mecobalamin (vitamin B12) 1,000 1,000 mcg PO DAILY 06/18/23 Unknown History mcg chewable tablet metformin 500 mg tablet,extended 500 mg PO BID diabetes 06/18/23 Unknown History release 24 hr zinc acetate 50 mg (zinc) capsule 50 mg PO DAILY 06/18/23 Unknown History famotidine 40 mg tablet (Pepcid) 40 mg PO DAILY 04/08/24 04/24/24 History insulin glargine 100 unit/mL (3 10 unit subcut QPM 04/08/24 Unknown History mL) subcutaneous pen (Lantus Solostar U-100 Insulin) isosorbide dinitrate 10 mg tablet See Rx Instructions .Route 05/14/24 Unknown Rx .COMPLEX #270 tabs metoprolol tartrate 25 mg tablet See Rx Instructions .Route 05/18/24 Unknown Rx .COMPLEX #180 TABLETS Allergy/AdvReac Type Severity Reaction Status Date / Time adhesive tape Allergy red, itchy Verified 12/29/24 20:13 atorvastatin (From Lipitor) Allergy myalgias Verified 12/29/24 20:13 Iodinated Contrast Media (CT) Allergy Shortness Verified 12/29/24 20:13 of breath Penicillins Allergy Rash Verified 12/29/24 20:13 pravastatin Allergy myalgias Verified 12/29/24 20:13 Family History Father COPD (chronic obstructive pulmonary disease) Myocardial infarction Mother Diabetes CAD (coronary artery disease) Hx CABG Alzheimers disease CVA (cerebral vascular accident) Brother H/O angioplasty Diabetes Brother CVA (cerebral vascular accident) Son Diabetes Surgical History History of cardiac catheterization History of coronary artery stent placement (05/26/19) History of left heart catheterization (12/07/11) Hx of appendectomy History of laminectomy History of bilateral hip replacements History of total bilateral knee replacement History of hysterectomy H/O total hip arthroplasty Social History household members: none Smoking Status: Never smoker alcohol intake: never substance use type: does not use diet: diabetic caffeine: Yes Type: coffee Number of servings: 3 what type of physical activity do you participate in: other details: PT frequency: 3-4 times per week duration: 30-45 minutes/day seatbelt use: always do you feel safe at home: Yes ROS ROS Narrative She denies any recent changes to changes with eyes ears nose or throat heart or lungs, bowel or bladder function. Vital Signs Vital Signs Vital Signs: 12/29/24 20:09 12/29/24 22:06 12/30/24 00:00 Temperature 98.2 F Temperature Source Oral Pulse Rate 71 70 76 Pulse Strength Respiratory Rate 16 17 18 Respiratory Effort Respiratory Depth Respiratory Pattern Blood Pressure 152/66 H 186/75 H 152/71 H Blood Pressure Mean 94 112 98 Blood Pressure Source Blood Pressure Position Blood Pressure Location Pulse Ox 95 99 96 Oxygen Delivery Method Room Air Room Air Room Air 12/30/24 00:24 12/30/24 01:36 12/30/24 02:14 Temperature 98.6 F 97.5 F L Temperature Source Oral Pulse Rate 76 72 Pulse Strength Respiratory Rate 18 18 Respiratory Effort Normal Non-Labored Respiratory Depth Normal Respiratory Pattern Normal Blood Pressure 152/71 H 159/59 H Blood Pressure Mean 98 92 Blood Pressure Source Monitor Blood Pressure Position Semi-Fowlers Blood Pressure Location Left Arm Pulse Ox 96 98 Oxygen Delivery Method Room Air Room Air 12/30/24 06:57 12/30/24 08:00 12/30/24 08:00 Temperature 98.6 F 97.9 F Temperature Source Oral Oral Pulse Rate 68 76 76 Pulse Strength Respiratory Rate 18 16 Respiratory Effort Normal Non-Labored Respiratory Depth Normal Respiratory Pattern Normal Blood Pressure 158/68 H 103/55 L Blood Pressure Mean 98 71 Blood Pressure Source Monitor Monitor Blood Pressure Position Semi-Fowlers Supine Blood Pressure Location Left Arm Right Arm Pulse Ox 96 96 Oxygen Delivery Method Room Air Room Air Room Air 12/30/24 08:14 12/30/24 08:59 12/30/24 09:03 Temperature 97.9 F Temperature Source Temporal Pulse Rate 73 Pulse Strength Normal (2+) Respiratory Rate 18 Respiratory Effort Respiratory Depth Respiratory Pattern Blood Pressure 109/57 L Blood Pressure Mean 74 Blood Pressure Source Monitor Blood Pressure Position Semi-Fowlers Blood Pressure Location Right Arm Pulse Ox 95 Oxygen Delivery Method Room Air Room Air 12/30/24 13:18 12/30/24 13:56 12/30/24 13:56 Temperature 98.8 F Temperature Source Oral Pulse Rate 80 77 77 Pulse Strength Respiratory Rate 18 18 Respiratory Effort Normal Non-Labored Respiratory Depth Normal Respiratory Pattern Normal Blood Pressure 124/70 H Blood Pressure Mean 88 Blood Pressure Source Monitor Blood Pressure Position Semi-Fowlers Blood Pressure Location Right Arm Pulse Ox 94 Oxygen Delivery Method Room Air Room Air Weight Weight: 90.9 kg Body Mass Index (BMI) 35.5 Physical Exam Narrative Patient is lying comfortably in bed with her present. She has mild pain on palpation about the left hip anteriorly and laterally. She has mild pain with axial loading of the left hip compared to the right. She has good rotation of both hips without significant pain in extension or flexion. She has weakness to resisted plantarflexion and dorsiflexion on the left compared to the right. She is able to do a straight leg raise off the bed with both legs. No bruising swelling or abnormal masses noted about the left hip region. X-rays AP pelvis AP and lateral of left hip reviewed showing a total hip replacement right and left side. Left side has cerclage wires. Based on my review of the x-rays I see no definitive signs of loosening failure or fracture. MRI scan from today reviewed showing scatter from metallic implant. There seems to be some cystic fluid collections along the femoral shaft but I cannot appreciate any significant amount of fluid within the hip joint. Awaiting radiologist report Lab / Micro Data Attestation: I reviewed the patient's lab results. 12/30/24 07:11 12/30/24 07:11 Labs: Laboratory Results - last 24 hr 12/30/24 00:19: Magnesium 2.0 12/30/24 07:02: POC Glucose 154 H 12/30/24 07:11: WBC 4.3 L, RBC 3.72 L, Hgb 11.2 L, Hct 33.5 L, MCV 90.1, MCH 30.1, MCHC 33.4, RDW Std Deviation 41.9, RDW Coeff of Sridhar 12.6, Plt Count 222, MPV 9.5, Immature Gran % (Auto) 0.200, Neut % (Auto) 57.9, Lymph % (Auto) 24.1, [place] % (Auto) 11.2 H, Eos % (Auto) 5.4 H, Baso % (Auto) 1.2 H, Absolute Neuts (auto) 2.5, Absolute Lymphs (auto) 1.03, Nucleated RBC % 0, ESR 12, Sodium 138, Potassium 4.2, Chloride 104, Carbon Dioxide 25.3, Anion Gap 9, BUN 21 H, Creatinine 0.71, Estim Creat Clear Calc 63.03, Est GFR (MDRD) Non-Af 87, BUN/Creatinine Ratio 30.0 H, Glucose 165 H, Calcium 8.8, Total Bilirubin 0.39, AST 19, ALT 14, Alkaline Phosphatase 78, C-React Prot Ext Range 11.20 H, Total Protein 5.6 L, Albumin 3.6, Globulin 2.0 L, Albumin/Globulin Ratio 1.8 12/30/24 11:35: POC Glucose 174 H Imaging Radiology Impression Femur X-Ray 12/29/24 20:53 IMPRESSION: Status post left hip arthroplasty with suspected loosening. No acute fracture. Reading Location: [facility] Pelvis X-Ray 12/29/24 20:53 IMPRESSION: Status post bilateral hip arthroplasty. No acute fracture. Reading Location: [facility] Assessment & Plan Assessment/Plan (1) Hip pain, left: PLAN: Her diagnosis and treatment options regarding her left hip pain discussed with her and her family at length. I explained this could be a sign of underlying occult chronic infection. Could be a sign of loosening or wear of the prosthesis. Could be related to muscle tendon ligament pain. Possible referred pain from lumbar spine. Dr. Oh is aware of the patient's admission. He does plan to see them tomorrow and review her case, laboratory work, x-ray and MRI findings. Continue under current treatment. All the questions were answered.
[2024-12-30 18:19] LABS: Bedside Glucose 277 mg/dL (74-106)
[2024-12-30] MEDS: Insulin Glargine-YFGN 100 UNIT/ML Pen 10 UNIT SC (22:07)
[2024-12-30] MEDS: Rosuvastatin Calcium 5 MG Tablet PO (22:11)
[2024-12-30 23:23] LABS: Bedside Glucose 179 mg/dL (74-106)
[2024-12-31 04:26] VITALS: BP 150/66; PULSE 60; RESP 18; TEMP 36.6; O2SAT 98
[2024-12-31 05:52] VITALS: BMI 35.0
[2024-12-31] MEDS: tiZANidine HCl 2 MG Tablet PO ×3 (06:51→21:33)
[2024-12-31 07:11] LABS: Bedside Glucose 132 mg/dL (74-106)
[2024-12-31] MEDS: Aspirin 81 MG TAB.CHEW PO (07:54)
[2024-12-31] MEDS: Gabapentin 100 MG Capsule PO ×3 (07:54→17:06)
[2024-12-31 09:52] VITALS: BP 142/67; PULSE 66; RESP 17; TEMP 36.8; O2SAT 93
[2024-12-31] MEDS: Dicyclomine 10 MG Capsule PO ×2 (09:56→21:33)
[2024-12-31] MEDS: Arthritis Pain Compound 60 CLICK TUBE TOPICAL ×2 (09:56→21:33)
[2024-12-31] MEDS: Insulin Glargine-YFGN 100 UNIT/ML Pen 10 UNIT SC ×2 (09:58→21:34)
[2024-12-31] MEDS: Isosorbide DN 10 MG Tablet PO (10:01)
[2024-12-31] MEDS: Menthol/Lanolin/Calamine/Znox 113 GM Tube 1 APPLIC TOPICAL ×4 (10:01→21:33)
[2024-12-31 10:02] VITALS: BP 142/67; PULSE 66
[2024-12-31] MEDS: Metoprolol Tartrate 25 MG Tablet PO ×2 (10:02→21:33)
[2024-12-31] MEDS: Enoxaparin 40 MG/0.4 ML Syringe SC (10:02)
[2024-12-31] MEDS: PARoxetine 10 MG Tablet 30 MG PO (10:03)
[2024-12-31] MEDS: Famotidine 20 MG Tablet 40 MG PO ×2 (10:05→21:32)
[2024-12-31] MEDS: Clopidogrel Bisulfate 75 MG Tablet PO (10:06)
[2024-12-31] MEDS: Acetaminophen 325 MG Tablet 650 MG PO ×2 (10:26→21:32)
[2024-12-31 11:35] LABS: Bedside Glucose 154 mg/dL (74-106)
[2024-12-31] MEDS: Insulin Lispro 100 UNIT/ML INSULN.PEN SC ×3 (11:56→21:35)
--- NOTE | 2024-12-31 13:27 | PCM.PN.BLA ---
Progress Note Planning for a potential ultrasound-guided drainage on 01/01/[address] Patel. Coagulation studies were ordered to be drawn tomorrow morning. It is recommended to hold Lovenox for 2 doses or 24 hours preprocedure. This was communicated with nurse Antonio.
--- NOTE | 2024-12-31 13:41 | NURSING ---
Per Koki, radiology FORMS BUILDER, hold pt's dose of lovenox on 01/01/25 before procedure. Lovenox scheduled for 1000 on 01/01/25 was marked as not given by this RN, per radiology's orders.
--- NOTE | 2024-12-31 13:53 | PN.HOSP_ITS ---
Reason for Visit Reason for Visit: Diagnoses Pain in left hip (12/30/24) Objective Data Objective Data Vital Signs: Vital Signs Temp Pulse Resp BP Pulse Ox O2 Del Method 98.2 F 66 17 142/67 H 93 Room Air 12/31/24 09:52 12/31/24 10:02 12/31/24 09:52 12/31/24 10:02 12/31/24 09:52 12/31/24 09:52 Oxygen Delivery Method Room Air Weight: 197 lb 12.074 oz Body Mass Index (BMI) 35.0 Intake & Output: Intake and Output for Last 24 Hours 12/29/24 12/30/24 12/31/24 23:59 23:59 23:59 Intake Total 4650 / 4900 825 / 825 Output Total 1300 / 1300 1800 / 1800 Balance 3350 / 3600 -975 / -975 Lab / Micro Data 12/30/24 07:11 12/30/24 07:11 Labs: Laboratory Results - last 24 hr 12/30/24 17:57: POC Glucose 277 H 12/30/24 22:05: POC Glucose 179 H 12/31/24 06:48: POC Glucose 132 H 12/31/24 11:16: POC Glucose 154 H Radiography Diagnostic Testing: Radiology Impression Lower Extremity MRI 12/30/24 13:19 IMPRESSION: Stir and T2 abnormal hyperintense signal, especially in the soft tissues surrounding the hip implant and also in the distal 3rd of the medullary compartment of the left femur. Recommend correlation with plain film and postcontrast imaging of the left femur. Consultation with infectious disease may be helpful. Reading [facility] Physical Exam Narrative Seen and examined. Patient has history of multiple left hip surgery, total 3 times last 10/19/2016. Bilateral hip replacement. Bilateral TKR. Patient was seen by orthopedic surgeon. She feels pain vaguely all around the left hip joint anteriorly lateral and posteriorly. Not able to bear weight on left hip. Physical exam General: Alert, Oriented x3, Cooperative. BMI 35.5 kg/m? HEENT: Atraumatic, PERRLA, EOMI, Normocephalic Oral: No Gingival or Mucosal Lesions/ Ulcerations Neck: Supple, No JVD, Negative Carotid Bruits Chest wall/Lungs: Air entry diminished in bilateral lung bases. No crepitation/rhonchi Cardiovascular: Regular rate, Regular Rhythm, Normal S1, Normal S2. Systolic Abdomen: Bowel Sounds Present, Soft, Non Tender, Non-Distended : No dysuria. No renal angle tenderness. No suprapubic tenderness. Extremities: No edema, Capillary Refill Less than 3 Seconds Skin: No rashes, No breakdown Musculoskeletal: Mild tenderness around left proximal femur. ROM restricted for left hip joint Neurological: Cranial nerves II-XII grossly intact, DTR 2+/4. No acute focal neurological deficit. Psych/Mental Status: Normal Affect, Appropriate. Assessment & Plan Assessment/Plan (1) Hip pain, left: PLAN: Plan The patient is a 79 y/o F was admitted with left hip pain and thigh and acute on chronic, got worse with unable to bear weight on left hip on the day of admission. Described her pain sharp and stabbing worse with the weightbearing complain of paresthesia in left lower extremity with recent diagnosis of neuropathy. Had prior ORIF of femur and hip fracture. No fever or chills. No recent injury or trauma. #1. Intractable left hip pain most likely due to loose screws/prosthesis, complicated by chronic neuropathy, debility, adult failure to thrive: Patient admitted to [facility]. Orthopedic surgery Dr. Oh/Dr. Solis Meek consulted. He felt pelvic x-ray shows no acute fracture but suspected loosening of the screws. 12/31: Patient had MRI which showed T2 abnormal hyperintensity signal in the soft tissues surrounding the hip implant and distal femur medullary compartment possible due to loosening of the prosthesis or infectious process. 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 Recommended to hold Lovenox for 2 doses of 24 hours preprocedure. Hold enoxaparin and Plavix too. ESR normal. CRP elevated 11.2. Patient is supposed to see Dr. Oh today #2. Chronic anemia/iron deficiency anemia: Mild anemia H&H 11.2 to 11.9 g%. On baseline #3. CKD stage II: Admission BUN/Cr on baseline renal function 0.6-0.8. #4. CAD: Status post PCI 2018, continue aspirin, Plavix, statin, benazepril, metoprolol home regimen. #5. Diabetes mellitus type II: Hold oral home regimen, continue home insulin regimen, ADA diet, accu checks w/ ISS. 4/2: Glucose 100 in the morning. Lantus at bedtime dose is decreased. #6. Hypertension: Continue home regimen including metoprolol, isosorbide, benazepril, PRN hydralazine. 4/2: Blood pressure on low normal. Holding parameters ordered #7. Hyperlipidemia: Continue patient home statin therapy. #8. Morbid Obesity: Weight loss and lifestyle changes encouraged. #9. Anxiety and depression: We will continue patient on paroxetine regimen. #10. GERD, history of previous GI bleed: Currently per list on famotidine only, will continue. Clarifying to be certain as dose is significantly elevated. 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 DVT prophylaxis: Lovenox. #13. CODE status: Patient MARY is her children present and living will is currently in place. Discussed CODE status at length including difference between FULL code, DNR-CCA and DNR-CC status. Following discussions about the differences in these status, requested DNR-CCA, no intubation which was clarified with examples. Charges/Coding Visit Charges Inpatient E&M: 37273 Subs Hosp L2
--- NOTE | 2024-12-31 14:10 | PCM.PN.ORT ---
Subjective Subjective Leticia is a 79-year-old female longstanding patient of mine. She recently had a hip replacement in 2017 and subsequently had acute periprosthetic fracture. This was revised with fixation of the fracture and went on to have noningrowth of the implant. We eventually revised her stem to a diaphyseal fitting stem. She has had intermittent pain over the years. She did see me last March to the best of my knowledge there was time we did obtain some lab work CRP was 4 and ESR was within normal range at that time. She was complaining of this thigh pain at that time. We did note some scalloping of the femur however the implant appeared to be stably fixed. Now she presents with pain with ambulation and inability to walk. She does note that she tried to do physical therapy today and even dialing her leg over the edge of the bed was painful. 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 She also reports bilateral thigh pain with more distance walking and does have a history of spinal stenosis. MRI was performed yesterday after repeating her ESR and CRP with a CRP of 11. ESR remains in normal range. I did review the MRI and the MRI does show that the patient has a area of fluid collection around the femur. I was able to discuss these results with radiology who felt that they could aspirate this pocket of fluid with ultrasound guidance. Her family is at the bedside today they confirm his history. They also confirmed what is noted in the previous consultation that she does not have any previous infectious etiology of recent nature. Objective Data Objective Data Vital Signs: Vital Signs Temp Pulse Resp BP Pulse Ox O2 Del Method 98.2 F 66 17 142/67 H 93 Room Air 12/31/24 09:52 12/31/24 10:02 12/31/24 09:52 12/31/24 10:02 12/31/24 09:52 12/31/24 09:52 Oxygen Delivery Method Room Air Weight: 197 lb 12.074 oz Body Mass Index (BMI) 35.0 Intake & Output: Intake and Output for Last 24 Hours 12/29/24 12/30/24 12/31/24 23:59 23:59 23:59 Intake Total 4650 / 4900 825 / 825 Output Total 1300 / 1300 1800 / 1800 Balance 3350 / 3600 -975 / -975 Lab / Micro Data Attestation: I reviewed the patient's lab results. 12/30/24 07:11 12/30/24 07:11 Labs: Laboratory Results - last 24 hr 12/30/24 17:57: POC Glucose 277 H 12/30/24 22:05: POC Glucose 179 H 12/31/24 06:48: POC Glucose 132 H 12/31/24 11:16: POC Glucose 154 H Radiography Diagnostic Testing: Radiology Impression Lower Extremity MRI 12/30/24 13:19 IMPRESSION: Stir and T2 abnormal hyperintense signal, especially in the soft tissues surrounding the hip implant and also in the distal 3rd of the medullary compartment of the left femur. Recommend correlation with plain film and postcontrast imaging of the left femur. Consultation with infectious disease may be helpful. Reading Location: [facility] Physical Exam Const alert and oriented x3 General Appearance: cooperative Resp normal respiratory effort Extremity Extremity Narrative: Left lower extremity: No erythema. No excessive swelling. Previous incision is clean dry intact previous knee incision is clean dry intact. Knee range of motion without pain. Weakness with dorsiflexion. Positive motor plantarflexion. Diffuse paresthesias with sensory testing. Assessment & Plan Assessment/Plan (1) 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: PLAN: Patient has painful prosthesis in the left lower extremity she has significant surgical history on this hip and thigh. I was able to review MRI and radiographic images. I was also able to compare these to images from my office last year. Patient has scalping of the femoral cortex where the intramedullary implant resides. There is not significant lucency around the implant itself however there is enough bony changes that concern for loosening is significant. Additionally, the scalping is concerning for chronic osteomyelitis which is why did the MRI. With the fluid available around the distal femur I have discussed the case with the radiologist who did feel that he could obtain fluid which we will send for culture and cell count analysis. I had a lengthy discussion with the patient and her family about what the treatment options are. Ultimately at this time, would like to have some confirmatory information. I have significantly high suspicion for infectious etiology and ultimately feel the patient will likely need a two-stage revision. Additionally have discussed my concerns for the osteomyelitis and the potential the patient may need significant resection of bony structures and proximal femoral replacement. We have discussed that with the morbidity associated with potential treatments for this we may also want to consider long-term suppressive antibiotics. However in order to successfully do this we will likely need to have a positive culture. Additionally we have discussed surgical plans for removal of this implant will take significant amount of time and should likely not be done without appropriate planning inappropriate OR setting in the absence of sepsis. Patient and family demonstrated understanding. Current plan at this time is to obtain the aspiration and analyze the fluid before we definitively move forward. In the event that we are unable to analyze his fluid my current thoughts are that treatment for infectious etiology would be warranted. In the meantime I have instructed the patient to continue to produce pain with physical therapy. May be beneficial for the primary service to manage and control the patient's pain. Planning for the surgery may take considerable time patient may be able to be discharged home prior to surgical intervention which she can be made comfortable and mobilized. [facility] Office:
[2024-12-31 15:04] VITALS: BP 156/67; PULSE 61; RESP 18; TEMP 36.2; O2SAT 96
--- NOTE | 2024-12-31 15:10 | CHAPLAIN ---
Type of Pastoral Visit _x__ Initial Visit ___ Follow-up Visit ___ On-call Visit ___ General Patient Visit ___ Spiritual Assessment ___ Family Conference ___ Bereavement ___ Rapid Response ___ Code Blue ___ Other (describe below) Pastoral Care Referral From _x__ Patient ___ Family ___ Nurse ___ Physician ___ Scenic Arts Supervisor ___ Federal District Clerk ___ Other (describe below) Sacrament/Intervention _x__ Active listening ___ Anointing ___ Jehovah'S Witness ___ Bereavement ___ Communion ___ Flor exploration ___ ___ Life review _x__ Prayer ___ Reconciliation ___ Sacrament of Sick _x__ Supportive presence ___ Wedding ___ Other (describe below) Pastoral Comments patient remembers this head of music from a previous admission and welcomes the same to give support; pt describes her condition and the anticipation of seeing the doctor today who will make recommendations on what can be done; pt has some anxious thoughts about not being able to live alone unless something is done to give her mobility and feeling in her legs; family members are in the room and there is humorous banter between them that makes people laugh; pt welcomes a prayer and presence
[2024-12-31 16:21] LABS: Bedside Glucose 212 mg/dL (74-106)
[2024-12-31 21:06] VITALS: BP 139/72; PULSE 66; RESP 16; TEMP 37; O2SAT 96
[2024-12-31 21:33] VITALS: BP 139/72; PULSE 66
[2024-12-31] MEDS: Rosuvastatin Calcium 5 MG Tablet PO (21:33)
[2024-12-31 23:02] LABS: Bedside Glucose 240 mg/dL (74-106)
[2025-01-01] VITALS (7 sets, daily range): BP systolic 122–176; BP diastolic 55–86; PULSE 58–66; RESP 16–18; TEMP 36.3–36.9; O2SAT 97–99; BMI 36.9
--- NOTE | 2025-01-01 | FLU_PTH ---
PATIENT: TONI EMERSON LOC: MS3 U#:[id number] AGE/SX: 79/F ROOM: MT324 RE12/31/[address]: Dr. Rosy Nguyen MD : 1945 BED: 1 DIS: 01/05/2025 SPEC #: [id number] RECD: 01/01/25 14:37 STATUS: SOUMagda REQ #: [id number] ANDRES: 01/01/25 00:[address]: Chey Clark DEPT: CYTOLOGY RECD BY: Hayde Scott ENTERED: 01/04/25 08:15 SP TYPE: Fluid OTHR DR: DO Dr. Terrance Burris MD Dr. Paige Pierce, MD Dr. Robert Leininger, MD Dr. Rodney Miller, MD Tissues: A - Cytologic material, NOS Procedures: Immunohistochemical Stains Special Stain Group II Surgery Specimen Level IV Cytospin Fluid IHC Stain ADDITIONAL HEADER OPERATION: Ultrasound guided puncture/aspiration PRE-OP DIAGNOSIS: Left thigh cyst TISSUE SUBMITTED: A- Left thigh cyst fluid for cytology DIAGNOSIS CYTOLOGY A. Left thigh, cyst, aspiration: * No malignant cells identified. * Acute inflammation and macrophages. * IHC for pancytokeratin and CD68 were utilized in the assessment. CYTOLOGY STUDY Slides are reviewed. All matched controls reacted appropriately. These tests were developed and their performance characteristics determined by [facility]. They may not have been cleared or approved by the U.S. Food and Drug Administration. The FDA has determined that such clearance or approval is not necessary. The above immunohistochemical/dualISH markers are ordered and reviewed by the Pathologist. CYTOLOGY GROSS A. Received is <1 ml of red-cloudy fluid labeled with the patient's name and and designated per the requisition as Left thigh cyst. Submitted for cytology preparation (cytospin x1, cellblock x1). Mr 01/04/2025 CPT: 56349 ,72143,18105
[2025-01-01] MEDS: tiZANidine HCl 2 MG Tablet PO ×3 (06:37→22:13)
[2025-01-01] MEDS: Insulin Lispro 100 UNIT/ML INSULN.PEN SC ×4 (06:37→22:13)
[2025-01-01 06:40] LABS: Absolute Lymphocyte Count 0.93 X10^3/uL (0.83-4.51); Absolute Neutrophil Count 1.9 X10^3/uL (2.0-7.7); Basophil# 0.03 X10^3/uL; Basophil% 0.8 % (0-1); Eosinophil# 0.22 X10^3/uL; Eosinophils% 6.2 % (0-5); Hematocrit 37.5 % (37-47); Hemoglobin 12.7 g/dL (12.0-15.0); Lymphocyte # 0.93 X10^3/ul (0.83-4.51); Lymphocyte % 26.1 % (19-41); Mean Corp Hgb Conc 33.9 g/dL (32-36); Mean Corpuscular Hgb 30.5 pg (27.0-32.0); Mean Corpuscular Volume 89.9 fL (81-99); Monocyte# 0.46 X10^3/uL; Monocyte% 12.9 % (0-10); NRBC Flagged by Analyzer 0 % (0-5); Neutrophil # 1.91 X10^3/uL (2.7-7.7); Neutrophil % 53.7 % (47-70); Platelet Count 230 K/mm3 (150-450); RBC Distribution Width CV 12.7 % (11.6-14.6); RBC Distribution Width SD 41.6 fl (35.1-43.9); Red Blood Count 4.17 M/mm3 (4.2-5.4); White Blood Count 3.6 K/mm3 (4.4-11.0)
[2025-01-01 06:57] LABS: Anion Gap 11 (5-15); BUN 16 mg/dL (4-19); BUN/Creat Ratio 23.9 RATIO (10-20); Calcium,Total 9.1 mg/dL (7.6-11.0); Chloride 105 mmol/L (98-108); Creatinine, Serum 0.68 mg/dL (0.70-1.20); EST Glomerular Filtration Rate 90 (>60); Estimated Creatinine Clearance 64.37 ml/min (50-250); Glucose 196 mg/dL (70-99); Potassium 4.1 mmol/L (3.3-5.1); Sodium Level 141 mmol/L (133-145)
[2025-01-01 07:10] LABS: Bedside Glucose 190 mg/dL (74-106)
[2025-01-01] MEDS: Metoprolol Tartrate 25 MG Tablet PO ×2 (07:27→22:13)
[2025-01-01] MEDS: Isosorbide DN 10 MG Tablet PO (07:27)
[2025-01-01] MEDS: PARoxetine 10 MG Tablet 30 MG PO (07:27)
[2025-01-01] MEDS: Famotidine 20 MG Tablet 40 MG PO ×2 (07:27→22:13)
[2025-01-01] MEDS: Menthol/Lanolin/Calamine/Znox 113 GM Tube 1 APPLIC TOPICAL ×2 (07:28→14:42)
[2025-01-01] MEDS: Dicyclomine 10 MG Capsule PO ×2 (07:28→22:13)
[2025-01-01] MEDS: Senna/Docusate Sodium 1 Tablet 2 TABLET PO (07:32)
[2025-01-01] MEDS: Acetaminophen 325 MG Tablet 650 MG PO ×2 (07:32→17:52)
[2025-01-01] MEDS: Gabapentin 100 MG Capsule PO ×3 (07:32→16:55)
[2025-01-01 07:57] LABS: Partial Thromboplast Time 28.5 Seconds (24.1-36.2); Prothrombin Time (Protime)PT. 13.6 SECONDS (11.7-14.9)
[2025-01-01] MEDS: Aspirin 81 MG TAB.CHEW PO (09:31)
[2025-01-01] MEDS: Insulin Glargine-YFGN 100 UNIT/ML Pen 10 UNIT SC ×2 (09:31→22:12)
[2025-01-01] MEDS: ALPRAZolam 0.25 MG Tablet PO (11:32)
[2025-01-01 11:51] LABS: Bedside Glucose 181 mg/dL (74-106)
--- NOTE | 2025-01-01 12:48 | CHAPLAIN ---
Type of Pastoral Visit ___ Initial Visit _x__ Follow-up Visit ___ On-call Visit ___ General Patient Visit ___ Spiritual Assessment ___ Family Conference ___ Bereavement ___ Rapid Response ___ Code Blue ___ Other (describe below) Pastoral Care Referral From ___ Patient _x__ Family ___ Nurse ___ Physician ___ Pen Tester ___ Mill Turner ___ Other (describe below) Sacrament/Intervention _x__ Active listening ___ Anointing ___ Anabaptism ___ Bereavement ___ Communion ___ Flor exploration ___ ___ Life review _x__ Prayer ___ Reconciliation ___ Sacrament of Sick _x__ Supportive presence ___ Wedding ___ Other (describe below) Pastoral Comments family members were gathered in the patient's room and as this electric installer noticed, stopped in; son says that Mom got bad news yesterday; pt describes the decision of having two surgeries in the future to correct her problem; pt is to have a procedure done this afternoon to determine course of antibiotics; supportive presence, listening to concerns, prayer offered for patient
--- NOTE | 2025-01-01 13:30 | US_ITS ---
PROCEDURE: CYST PUNCTURE 01/01/2025 REASON FOR EXAM: Small fluid collection in the proximal right thigh. TECHNIQUE: Ultrasound targeted to the small fluid collection adjacent to the femoral component of the prosthetic hip. COMPARISON: Comparison is made with prior MRI examination. FINDINGS: There is a 4.6 cm x 2.4 cm 1.3 cm fluid collection adjacent to the femoral component of the prosthetic hip. The procedure as well as the benefits and possible complications including bleeding infection were explained to the patient. Informed consent was obtained. Utilizing a 22 gauge spinal needle, approximately 2 cc of blood-tinged fluid was aspirated. The patient tolerated the procedure well. US/Cyst Puncture IMPRESSION: Successful aspiration of blood-tinged thick fluid. Reading Location: [place] [address]
--- NOTE | 2025-01-01 14:09 | PN.HOSP_ITS ---
Reason for Visit Reason for Visit: Diagnoses Pain in left hip (12/31/24) Pain due to internal orthopedic prosthetic devices, implants and grafts, initial encounter (12/31/24) Presence of left artificial hip joint (12/31/24) Objective Data Objective Data Vital Signs: Vital Signs Temp Pulse Resp BP Pulse Ox O2 Del Method 97.5 F L 58 L 18 154/55 H 98 Room Air 01/01/25 07:30 01/01/25 07:30 01/01/25 07:30 01/01/25 07:30 01/01/25 07:30 01/01/25 07:43 Oxygen Delivery Method Room Air Weight: 208 lb 5.389 oz Body Mass Index (BMI) 36.9 Intake & Output: Intake and Output for Last 24 Hours 12/30/24 12/31/24 01/01/25 23:59 23:59 23:59 Intake Total 4650 / 4900 825 / 825 Output Total 1300 / 1300 1800 / 2150 800 / 800 Balance 3350 / 3600 -975 / -1325 -800 / -800 Lab / Micro Data 01/01/25 06:29 01/01/25 06:29 Labs: Laboratory Results - last 24 hr 12/31/24 15:59: POC Glucose 212 H 12/31/24 21:26: POC Glucose 240 H 01/01/25 06:29: WBC 3.6 L, RBC 4.17 L, Hgb 12.7, Hct 37.5, MCV 89.9, MCH 30.5, MCHC 33.9, RDW Std Deviation 41.6, RDW Coeff of Sridhar 12.7, Plt Count 230, MPV 9.0, Immature Gran % (Auto) 0.300, Neut % (Auto) 53.7, Lymph % (Auto) 26.1, Kemper % (Auto) 12.9 H, Eos % (Auto) 6.2 H, Baso % (Auto) 0.8, Absolute Neuts (auto) 1.9 L, Absolute Lymphs (auto) 0.93, Nucleated RBC % 0, PT 13.6, INR 1.0, APTT 28.5, Sodium 141, Potassium 4.1, Chloride 105, Carbon Dioxide 25.0, Anion Gap 11, BUN 16, Creatinine 0.68 L, Estim Creat Clear Calc 64.37, Est GFR (MDRD) Non- Af 90, BUN/Creatinine Ratio 23.9 H, Glucose 196 H, Calcium 9.1 01/01/25 06:34: POC Glucose 190 H 01/01/25 11:31: POC Glucose 181 H Physical Exam Narrative Seen and examined. Patient allowed limited weightbearing, out of bed to chair. No other clinical new change. Plan for left hip aspiration Patient has history of multiple left hip surgery, total 3 times last 10/19/2016. Bilateral hip replacement. Bilateral TKR. Patient was seen by orthopedic surgeon Dr. Oh today. She feels pain vaguely all around the left hip joint anteriorly lateral and posteriorly. Physical exam General: Alert, Oriented x3, Cooperative. BMI 35.5 kg/m? HEENT: Atraumatic, PERRLA, EOMI, Normocephalic Oral: No Gingival or Mucosal Lesions/ Ulcerations Neck: Supple, No JVD, Negative Carotid Bruits Chest wall/Lungs: Air entry diminished in bilateral lung bases. No crepitation/rhonchi Cardiovascular: Regular rate, Regular Rhythm, Normal S1, Normal S2. Systolic Abdomen: Bowel Sounds Present, Soft, Non Tender, Non-Distended : No dysuria. No renal angle tenderness. No suprapubic tenderness. Extremities: No edema, Capillary Refill Less than 3 Seconds Skin: No rashes, No breakdown Musculoskeletal: Mild tenderness around left proximal femur. ROM restricted for left hip joint Neurological: Cranial nerves II-XII grossly intact, DTR 2+/4. No acute focal neurological deficit. Psych/Mental Status: Normal Affect, Appropriate. Assessment & Plan Assessment/Plan (1) Hip pain, left: PLAN: Plan The patient is a 79 y/o F was admitted with left hip pain and thigh and acute on chronic, got worse with unable to bear weight on left hip on the day of admission. Described her pain sharp and stabbing worse with the weightbearing complain of paresthesia in left lower extremity with recent diagnosis of neuropathy. Had prior ORIF of femur and hip fracture. No fever or chills. No recent injury or trauma. #1. Intractable left hip pain most likely due to loose screws/prosthesis, complicated by chronic neuropathy, debility, adult failure to thrive: Patient admitted to [facility]. Orthopedic surgery Dr. Oh/Dr. Solis Meek consulted. He felt pelvic x-ray shows no acute fracture but suspected loosening of the screws. 12/31: Patient had MRI which showed T2 abnormal hyperintensity signal in the soft tissues surrounding the hip implant and distal femur medullary compartment possible due to loosening of the prosthesis or infectious process. 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 Recommended to hold Lovenox for 2 doses of 24 hours preprocedure. Hold enoxaparin and Plavix too. ESR normal. CRP elevated 11.2. Patient is supposed to see Dr. Oh today 01/01: Orthopedic surgeon Dr. Oh note reviewed. MRI showing some fluid around the femur/left hip. Plan for ultrasound-guided fluid aspiration and will send for analysis and culture. Fluid will monitor. If there is concern of infectious etiology, will consult ID for antibiotic guidance. Future course of action dependent on whether there is infection in the left hip/femur or loosening of the prosthesis. #2. Chronic anemia/iron deficiency anemia: Mild anemia H&H 11.2 to 11.9 g%. On baseline #3. CKD stage II: Admission BUN/Cr on baseline renal function 0.6-0.8. #4. CAD: Status post PCI 2018, continue aspirin, Plavix, statin, benazepril, metoprolol home regimen. #5. Diabetes mellitus type II: Hold oral home regimen, continue home insulin regimen, ADA diet, accu checks w/ ISS. 12/30: Glucose 100 in the morning. Lantus at bedtime dose is decreased. #6. Hypertension: Continue home regimen including metoprolol, isosorbide, benazepril, PRN hydralazine. 12/30: Blood pressure on low normal. Holding parameters ordered #7. Hyperlipidemia: Continue patient home statin therapy. #8. Morbid Obesity: Weight loss and lifestyle changes encouraged. #9. Anxiety and depression: We will continue patient on paroxetine regimen. #10. GERD, history of previous GI bleed: Currently per list on famotidine only, will continue. Clarifying to be certain as dose is significantly elevated. 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 DVT prophylaxis: Lovenox. #13. CODE status: Patient MARY is her children present and living will is currently in place. Discussed CODE status at length including difference between FULL code, DNR-CCA and DNR-CC status. Following discussions about the differences in these status, requested DNR-CCA, no intubation which was clarified with examples. Charges/Coding Visit Charges Inpatient E&M: 87792 Subs Hosp L2
--- NOTE | 2025-01-01 14:29 | PCM.OPRPT ---
Problems Associated Problem List Diagnoses (1) Hip pain, left: Multi Select Codes Radiology Radiology US Procedures: 60310 Cyst Puncture Operative Report (Standard) Operative Information Date of Procedure: 01/01/25 Pre-Operative Diagnosis: Left hip pain Post-Operative Diagnosis: Left hip pain Surgery/Procedure Performed: Ultrasound-guided fluid aspiration computer programming professor: No Type of Anesthesia: Local Procedure Start Time: 14:25 Procedure Stop Time: 14:40 Select all DRAINS/GRAFTS/IMPLANTS that apply: None Estimated Blood Loss: 0 Specimen collected: Yes Description of specimen(s) removed: 1 -2 cc of red-tinged fluid Description of surgery: PROCEDURE: Ultrasound-guided fluid aspiration anterior to the left distal femur ORDERING PROVIDER: Dr. Tarik Oh INDICATION: Female, 79 years old. Left hip pain. PROVIDER: STACIE Harmon CONSENT: The procedure as well as the benefits and possible complications including infection and bleeding were explained to the patient. Informed consent was obtained. Coagulation studies were reviewed preprocedure by myself and Dr. Patel who was in agreement to proceed. Plavix and Lovenox have been held. TECHNIQUE: An ultrasonographic survey was conducted of the left upper thigh. A fluid-filled pocket was identified anteriorly of the left distal femur. The patient was positioned supine. The left anterior access site was prepped with chlorhexidine and draped in sterile fashion. 2% Lidocaine was administered subcutaneously for local anesthesia. A 22-gauge spinal needle was positioned within the fluid pocket under ultrasound guidance. Approximately 1-2 cc of red fluid was aspirated. A dressing was placed on the aspiration site. The patient tolerated the procedure well. Fluid was sent to the laboratory for analysis. The procedure was proctored and assisted by interventional radiologist Dr. Patel. IMPRESSION: Successful ultrasound-guided fluid aspiration anterior to the left distal femur with removal of 1?2 cc of red colored fluid. Surgical Findings: None Complications Complications: No
[2025-01-01 16:41] LABS: Bedside Glucose 296 mg/dL (74-106)
--- NOTE | 2025-01-01 16:52 | PCM.PN.ORT ---
Subjective Subjective Patient overall is more comfortable today. After our discussion yesterday she was able to get up and ambulate in the hallways with physical therapy. She was able to do so with more comfort and confidence. Her son is at the bedside and confirms this. Aspiration was done around 2:00 today. Specimen is in pathology. There is limited specimen we are going to proceed with the culture primarily and cell count if possible. Objective Data Objective Data Vital Signs: Vital Signs Temp Pulse Resp BP Pulse Ox O2 Del Method 98.1 F 62 18 176/86 H 97 Room Air 01/01/25 14:40 01/01/25 14:40 01/01/25 14:40 01/01/25 14:40 01/01/25 14:40 01/01/25 14:51 Oxygen Delivery Method Room Air Weight: 208 lb 5.389 oz Body Mass Index (BMI) 36.9 Intake & Output: Intake and Output for Last 24 Hours 12/30/24 12/31/24 01/01/25 23:59 23:59 23:59 Intake Total 4650 / 4900 825 / 825 Output Total 1300 / 1300 1800 / 2150 800 / 800 Balance 3350 / 3600 -975 / -1325 -800 / -800 Lab / Micro Data Attestation: I reviewed the patient's lab results. 01/01/25 06:29 01/01/25 06:29 Labs: Laboratory Results - last 24 hr 12/31/24 21:26: POC Glucose 240 H 01/01/25 06:29: WBC 3.6 L, RBC 4.17 L, Hgb 12.7, Hct 37.5, MCV 89.9, MCH 30.5, MCHC 33.9, RDW Std Deviation 41.6, RDW Coeff of S[place] 12.7, Plt Count 230, MPV 9.0, Immature Gran % (Auto) 0.300, Neut % (Auto) 53.7, Lymph % (Auto) 26.1, [place] % (Auto) 12.9 H, Eos % (Auto) 6.2 H, Baso % (Auto) 0.8, Absolute Neuts (auto) 1.9 L, Absolute Lymphs (auto) 0.93, Nucleated RBC % 0, PT 13.6, INR 1.0, APTT 28.5, Sodium 141, Potassium 4.1, Chloride 105, Carbon Dioxide 25.0, Anion Gap 11, BUN 16, Creatinine 0.68 L, Estim Creat Clear Calc 64.37, Est GFR (MDRD) Non-Af 90, BUN/Creatinine Ratio 23.9 H, Glucose 196 H, Calcium 9.1 01/01/25 06:34: POC Glucose 190 H 01/01/25 11:31: POC Glucose 181 H 01/01/25 16:02: POC Glucose 296 H Physical Exam Narrative Left lower extremity: Sitting up at bedside. Comfortable. Exam deferred secondary to no significant changes from yesterday Const alert, oriented x3 and no apparent distress Assessment & Plan Assessment/Plan (1) 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: PLAN: Patient is currently stable. Awaiting aspiration results. If patient is able to mobilize and be comfortable may be able to proceed to home is being planned for any surgical intervention. Open follow cultures from a distance over the weekend. Hopefully by Saturday we have some reasonable results and can begin further treatment planning. This can be done on an outpatient basis if patient is able to be stable and mobilized. Please contact orthopedics for any further questions or concerns. [facility] Office:
[2025-01-01] MEDS: Rosuvastatin Calcium 5 MG Tablet PO (22:13)
[2025-01-01 22:39] LABS: Bedside Glucose 209 mg/dL (74-106)
[2025-01-02] VITALS (7 sets, daily range): BP systolic 114–160; BP diastolic 59–83; PULSE 58–76; RESP 16–18; TEMP 36.3–37.2; O2SAT 94–99; BMI 36.6
[2025-01-02] MEDS: tiZANidine HCl 2 MG Tablet PO ×3 (05:34→20:32)
[2025-01-02] MEDS: Acetaminophen 325 MG Tablet 650 MG PO ×2 (05:34→20:53)
[2025-01-02] MEDS: Insulin Lispro 100 UNIT/ML INSULN.PEN SC ×3 (06:48→20:52)
[2025-01-02 07:07] LABS: Bedside Glucose 194 mg/dL (74-106)
[2025-01-02] MEDS: Famotidine 20 MG Tablet 40 MG PO ×2 (09:06→20:33)
[2025-01-02] MEDS: Aspirin 81 MG TAB.CHEW PO (09:07)
[2025-01-02] MEDS: Metoprolol Tartrate 25 MG Tablet PO ×2 (09:07→20:34)
[2025-01-02] MEDS: Dicyclomine 10 MG Capsule PO ×2 (09:07→20:32)
[2025-01-02] MEDS: PARoxetine 10 MG Tablet 30 MG PO (09:07)
[2025-01-02] MEDS: Arthritis Pain Compound 60 CLICK TUBE TOPICAL ×2 (09:08→20:31)
[2025-01-02] MEDS: Menthol/Lanolin/Calamine/Znox 113 GM Tube 1 APPLIC TOPICAL ×4 (09:08→20:32)
[2025-01-02] MEDS: Gabapentin 100 MG Capsule PO ×3 (09:13→16:17)
[2025-01-02] MEDS: Insulin Glargine-YFGN 100 UNIT/ML Pen 15 UNIT SC ×2 (09:18→20:52)
[2025-01-02 11:40] LABS: Bedside Glucose 206 mg/dL (74-106)
--- NOTE | 2025-01-02 13:31 | PCM.PN.HOSP ---
Reason for Visit Reason for Visit: Diagnoses Pain in left hip (12/31/24) Pain due to internal orthopedic prosthetic devices, implants and grafts, initial encounter (12/31/24) Presence of left artificial hip joint (12/31/24) Objective Data Objective Data Vital Signs: Vital Signs Temp Pulse Resp BP Pulse Ox O2 Del Method 99.0 F 76 18 124/62 H 94 Room Air 01/02/25 08:56 01/02/25 09:07 01/02/25 08:56 01/02/25 08:56 01/02/25 11:14 01/02/25 11:14 Oxygen Delivery Method Room Air Weight: 206 lb 8 oz Body Mass Index (BMI) 36.6 Intake & Output: Intake and Output for Last 24 Hours 12/31/24 01/01/25 01/02/25 23:59 23:59 23:59 Intake Total 825 / 825 850 / 850 Output Total 1800 / 2150 800 / 800 Balance -975 / -1325 -800 / -400 850 / 850 Lab / Micro Data 01/01/25 06:29 01/01/25 06:29 Labs: Laboratory Results - last 24 hr 01/01/25 14:20: Fluid Source Cancelled, Fluid Color Cancelled, Fluid Appearance Cancelled, Fluid WBC Cancelled, Fluid RBC Cancelled, Fluid Tot Cell Count Cancelled, Fld Polynuclear WBCs # Cancelled, Fld Polynuclear WBCs % Cancelled, Fluid Mononuclear WBCs Cancelled, Fld Mononuclear WBCs % Cancelled, Fluid Neutrophils Cancelled, Fluid Lymphocytes Cancelled, Fluid Monocytes Cancelled, Fluid Plasma Cells Cancelled, Fluid Macrophages Cancelled, Fld Mesothelial Cells Cancelled, Fluid Other Cells Cancelled, Fl Pathologist Comment Cancelled, Fluid Comment 2 Cancelled 01/01/25 16:02: POC Glucose 296 H 01/01/25 22:09: POC Glucose 209 H 01/02/25 06:46: POC Glucose 194 H 01/02/25 11:21: POC Glucose 206 H Physical Exam Narrative Seen and examined. Patient is getting physical therapy. No acute complaint. Had ultrasound-guided hip aspiration. Cell count is canceled. Patient has history of multiple left hip surgery, total 3 times last 10/19/2016. Bilateral hip replacement. Bilateral TKR. Patient was seen by orthopedic surgeon Dr. Oh today. She feels pain vaguely all around the left hip joint anteriorly lateral and posteriorly. Physical exam General: Alert, Oriented x3, Cooperative. BMI 35.5 kg/m? HEENT: Atraumatic, PERRLA, EOMI, Normocephalic Oral: No Gingival or Mucosal Lesions/ Ulcerations Neck: Supple, No JVD, Negative Carotid Bruits Chest wall/Lungs: Air entry diminished in bilateral lung bases. No crepitation/rhonchi Cardiovascular: Regular rate, Regular Rhythm, Normal S1, Normal S2. Systolic Abdomen: Bowel Sounds Present, Soft, Non Tender, Non-Distended : No dysuria. No renal angle tenderness. No suprapubic tenderness. Extremities: No edema, Capillary Refill Less than 3 Seconds Skin: No rashes, No breakdown Musculoskeletal: Mild tenderness around left proximal femur. ROM restricted for left hip joint Neurological: Cranial nerves II-XII grossly intact, DTR 2+/4. No acute focal neurological deficit. Psych/Mental Status: Normal Affect, Appropriate. Assessment & Plan Assessment/Plan (1) Hip pain, left: PLAN: Plan The patient is a 79 y/o F was admitted with left hip pain and thigh and acute on chronic, got worse with unable to bear weight on left hip on the day of admission. Described her pain sharp and stabbing worse with the weightbearing complain of paresthesia in left lower extremity with recent diagnosis of neuropathy. Had prior ORIF of femur and hip fracture. No fever or chills. No recent injury or trauma. #1. Intractable left hip pain most likely due to loose screws/prosthesis, complicated by chronic neuropathy, debility, adult failure to thrive: Patient admitted to [facility]. Orthopedic surgery Dr. Oh/Dr. Solis Meek consulted. He felt pelvic x-ray shows no acute fracture but suspected loosening of the screws. 12/31: Patient had MRI which showed T2 abnormal hyperintensity signal in the soft tissues surrounding the hip implant and distal femur medullary compartment possible due to loosening of the prosthesis or infectious process. There is note by radiology STATISTICAL GENETICIST stating plan for ultrasound-guided drainage on 01/01/2025. Recommended to hold Lovenox for 2 doses of 24 hours preprocedure. Hold enoxaparin and Plavix too. ESR normal. CRP elevated 11.2. Patient is supposed to see Dr. Oh today 01/01: Orthopedic surgeon Dr. Oh note reviewed. MRI showing some fluid around the femur/left hip. Plan for ultrasound-guided fluid aspiration and will send for analysis and culture. Fluid will monitor. If there is concern of infectious etiology, will consult ID for antibiotic guidance. Future course of action dependent on whether there is infection in the left hip/femur or loosening of the prosthesis. 01/02: Left hip aspiration fluid Gram stain culture pending. Cell count reporting shows canceled. Patient allowed assisted ambulation under supervision of physical therapy #2. Chronic anemia/iron deficiency anemia: Mild anemia H&H 11.2 to 11.9 g%. On baseline #3. CKD stage II: Admission BUN/Cr on baseline renal function 0.6-0.8. #4. CAD: Status post PCI 2018, continue aspirin, Plavix, statin, benazepril, metoprolol home regimen. #5. Diabetes mellitus type II: Hold oral home regimen, continue home insulin regimen, ADA diet, accu checks w/ ISS. /: Glucose 100 in the morning. Lantus at bedtime dose is decreased. #6. Hypertension: Continue home regimen including metoprolol, isosorbide, benazepril, PRN hydralazine. 12/30: Blood pressure on low normal. Holding parameters ordered #7. Hyperlipidemia: Continue patient home statin therapy. #8. Morbid Obesity: Weight loss and lifestyle changes encouraged. #9. Anxiety and depression: We will continue patient on paroxetine regimen. #10. GERD, history of previous GI bleed: Currently per list on famotidine only, will continue. Clarifying to be certain as dose is significantly elevated. 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 DVT prophylaxis: Lovenox. #13. CODE status: Patient VANIAOA is her children present and living will is currently in place. Discussed CODE status at length including difference between FULL code, DNR-CCA and DNR-CC status. Following discussions about the differences in these status, requested DNR-CCA, no intubation which was clarified with examples. Charges/Coding Visit Charges Inpatient E&M: 42790 Subs Hosp L2
[2025-01-02 16:53] LABS: Bedside Glucose 131 mg/dL (74-106)
[2025-01-02] MEDS: Rosuvastatin Calcium 5 MG Tablet PO (20:34)
[2025-01-02 22:40] LABS: Bedside Glucose 267 mg/dL (74-106)
[2025-01-03] VITALS (7 sets, daily range): BP systolic 100–137; BP diastolic 44–67; PULSE 55–73; RESP 16–18; TEMP 36.3–37.1; O2SAT 94–99; BMI 36.6
[2025-01-03] MEDS: tiZANidine HCl 2 MG Tablet PO ×3 (04:46→20:33)
[2025-01-03] MEDS: Insulin Lispro 100 UNIT/ML INSULN.PEN SC ×4 (06:06→20:39)
[2025-01-03 06:25] LABS: Bedside Glucose 178 mg/dL (74-106)
[2025-01-03] MEDS: Famotidine 20 MG Tablet 40 MG PO ×2 (08:39→20:35)
[2025-01-03] MEDS: Metoprolol Tartrate 25 MG Tablet PO ×2 (08:39→20:34)
[2025-01-03] MEDS: Isosorbide DN 10 MG Tablet PO (08:39)
[2025-01-03] MEDS: PARoxetine 10 MG Tablet 30 MG PO (08:40)
[2025-01-03] MEDS: Dicyclomine 10 MG Capsule PO ×2 (08:40→20:33)
[2025-01-03] MEDS: Aspirin 81 MG TAB.CHEW PO (08:40)
[2025-01-03] MEDS: Insulin Glargine-YFGN 100 UNIT/ML Pen 15 UNIT SC ×2 (08:41→20:36)
[2025-01-03] MEDS: Gabapentin 100 MG Capsule PO ×3 (08:45→17:17)
[2025-01-03 12:11] LABS: Bedside Glucose 180 mg/dL (74-106)
--- NOTE | 2025-01-03 12:44 | PCM.PN.HOSP ---
Reason for Visit Reason for Visit: Diagnoses Pain in left hip (12/31/24) Pain due to internal orthopedic prosthetic devices, implants and grafts, initial encounter (12/31/24) Presence of left artificial hip joint (12/31/24) Objective Data Objective Data Vital Signs: Vital Signs Temp Pulse Resp BP Pulse Ox O2 Del Method 98.7 F 60 18 137/67 H 99 Room Air 01/03/25 08:31 01/03/25 08:39 01/03/25 08:31 01/03/25 08:31 01/03/25 08:31 01/03/25 08:31 Oxygen Delivery Method Room Air Weight: 207 lb 0.225 oz Body Mass Index (BMI) 36.6 Intake & Output: Intake and Output for Last 24 Hours 01/01/25 01/02/25 01/03/25 23:59 23:59 23:59 Intake Total 1750 / 1750 Output Total 800 / 800 Balance -800 / -400 1750 / 1750 Lab / Micro Data 01/01/25 06:29 01/01/25 06:29 Labs: Laboratory Results - last 24 hr 01/02/25 16:20: POC Glucose 131 H 01/02/25 20:50: POC Glucose 267 H 01/03/25 06:05: POC Glucose 178 H 01/03/25 11:41: POC Glucose 180 H Physical Exam Narrative Seen and examined. No acute issues. Patient complain of pain around left hip and femur mainly on internal and external rotation but if she keeps her hip straight it does not hurt much. Had ultrasound-guided hip aspiration. Cell count is canceled. Patient has history of multiple left hip surgery, total 3 times last 10/19/2016. Bilateral hip replacement. Bilateral TKR. Patient was seen by orthopedic surgeon Dr. Oh today. She feels pain vaguely all around the left hip joint anteriorly lateral and posteriorly. Physical exam General: Alert, Oriented x3, Cooperative. BMI 35.5 kg/m? HEENT: Atraumatic, PERRLA, EOMI, Normocephalic Oral: No Gingival or Mucosal Lesions/ Ulcerations Neck: Supple, No JVD, Negative Carotid Bruits Chest wall/Lungs: Air entry diminished in bilateral lung bases. No crepitation/rhonchi Cardiovascular: Regular rate, Regular Rhythm, Normal S1, Normal S2. Systolic Abdomen: Bowel Sounds Present, Soft, Non Tender, Non-Distended : No dysuria. No renal angle tenderness. No suprapubic tenderness. Extremities: No edema, Capillary Refill Less than 3 Seconds Skin: No rashes, No breakdown Musculoskeletal: Mild tenderness around left proximal femur. ROM restricted for left hip joint Neurological: Cranial nerves II-XII grossly intact, DTR 2+/4. No acute focal neurological deficit. Psych/Mental Status: Normal Affect, Appropriate. Assessment & Plan Assessment/Plan (1) Hip pain, left: PLAN: Plan The patient is a 79 y/o F was admitted with left hip pain and thigh and acute on chronic, got worse with unable to bear weight on left hip on the day of admission. Described her pain sharp and stabbing worse with the weightbearing complain of paresthesia in left lower extremity with recent diagnosis of neuropathy. Had prior ORIF of femur and hip fracture. No fever or chills. No recent injury or trauma. #1. Intractable left hip pain most likely due to loose screws/prosthesis, complicated by chronic neuropathy, debility, adult failure to thrive: Patient admitted to [facility]. Orthopedic surgery Dr. Oh/Dr. Solis Meek consulted. He felt pelvic x-ray shows no acute fracture but suspected loosening of the screws. 12/31: Patient had MRI which showed T2 abnormal hyperintensity signal in the soft tissues surrounding the hip implant and distal femur medullary compartment possible due to loosening of the prosthesis or infectious process. There is note by radiology LABOR COMMISSIONER stating plan for ultrasound-guided drainage on 01/01/2025. Recommended to hold Lovenox for 2 doses of 24 hours preprocedure. Hold enoxaparin and Plavix too. ESR normal. CRP elevated 11.2. Patient is supposed to see Dr. Oh today 01/01: Orthopedic surgeon Dr. Oh note reviewed. MRI showing some fluid around the femur/left hip. Plan for ultrasound-guided fluid aspiration and will send for analysis and culture. Fluid will monitor. If there is concern of infectious etiology, will consult ID for antibiotic guidance. Future course of action dependent on whether there is infection in the left hip/femur or loosening of the prosthesis. 01/02: Left hip aspiration fluid Gram stain culture pending. Cell count reporting shows canceled. Patient allowed assisted ambulation under supervision of physical therapy 01/03: Gram stain of left hip aspirate still shows pending. ID consulted for opinion as there is suspicion of left hip prosthetic joint infection #2. Chronic anemia/iron deficiency anemia: Mild anemia H&H 11.2 to 11.9 g%. On baseline #3. CKD stage II: Admission BUN/Cr on baseline renal function 0.6-0.8. #4. CAD: Status post PCI 2018, continue aspirin, Plavix, statin, benazepril, metoprolol home regimen. #5. Diabetes mellitus type II: Hold oral home regimen, continue home insulin regimen, ADA diet, accu checks w/ ISS. /: Glucose 100 in the morning. Lantus at bedtime dose is decreased. #6. Hypertension: Continue home regimen including metoprolol, isosorbide, benazepril, PRN hydralazine. 12/30: Blood pressure on low normal. Holding parameters ordered #7. Hyperlipidemia: Continue patient home statin therapy. #8. Morbid Obesity: Weight loss and lifestyle changes encouraged. #9. Anxiety and depression: We will continue patient on paroxetine regimen. #10. GERD, history of previous GI bleed: Currently per list on famotidine only, will continue. Clarifying to be certain as dose is significantly elevated. 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 DVT prophylaxis: Lovenox. #13. CODE status: Patient MARY is her children present and living will is currently in place. Discussed CODE status at length including difference between FULL code, DNR-CCA and DNR-CC status. Following discussions about the differences in these status, requested DNR-CCA, no intubation which was clarified with examples. Charges/Coding Visit Charges Inpatient E&M: 64379 Subs Hosp L2
[2025-01-03 17:01] LABS: Bedside Glucose 172 mg/dL (74-106)
[2025-01-03] MEDS: Arthritis Pain Compound 60 CLICK TUBE TOPICAL (20:33)
[2025-01-03] MEDS: Rosuvastatin Calcium 5 MG Tablet PO (20:35)
[2025-01-03] MEDS: Acetaminophen 325 MG Tablet 650 MG PO (20:35)
[2025-01-03 23:58] LABS: Bedside Glucose 220 mg/dL (74-106)
[2025-01-04] MEDS: tiZANidine HCl 2 MG Tablet PO ×3 (06:01→21:22)
[2025-01-04] MEDS: Acetaminophen 325 MG Tablet 650 MG PO (06:05)
[2025-01-04 06:10] VITALS: BP 149/74; PULSE 68; RESP 16; TEMP 36.6; O2SAT 96
[2025-01-04 07:28] LABS: Bedside Glucose 141 mg/dL (74-106)
[2025-01-04] MEDS: Aspirin 81 MG TAB.CHEW PO (07:53)
[2025-01-04] MEDS: Gabapentin 100 MG Capsule PO ×3 (07:53→17:25)
[2025-01-04] MEDS: Dicyclomine 10 MG Capsule PO ×2 (10:31→21:20)
[2025-01-04] MEDS: Insulin Glargine-YFGN 100 UNIT/ML Pen 15 UNIT SC ×2 (10:32→21:59)
[2025-01-04 10:33] VITALS: PULSE 72
[2025-01-04] MEDS: Isosorbide DN 10 MG Tablet PO (10:33)
[2025-01-04] MEDS: Metoprolol Tartrate 25 MG Tablet PO ×2 (10:33→21:21)
[2025-01-04] MEDS: Famotidine 20 MG Tablet 40 MG PO ×2 (10:34→21:22)
[2025-01-04] MEDS: PARoxetine 10 MG Tablet 30 MG PO (10:34)
[2025-01-04 11:38] LABS: Bedside Glucose 214 mg/dL (74-106)
[2025-01-04] MEDS: Insulin Lispro 100 UNIT/ML INSULN.PEN SC ×3 (11:50→21:58)
[2025-01-04 14:08] VITALS: BP 117/63; PULSE 71; RESP 16; TEMP 36.7; O2SAT 97
--- NOTE | 2025-01-04 15:03 | PCM.CONS.GEN ---
Assessment & Plan Assessment/Plan (1) 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: PLAN: Aspiration gram stain and cx remain neg. No fever, no leukocytosis. Port in place in R chest. Some hardware loosening seen, will cont to monitor off of abx for now. 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 Had replacement about 8 years ago. Was on feet more than usual that day a week ago, had progressive soreness. No fever, no redness/drainage/swelling. Came to ED 12/30, admitted, seen by ortho, aspiration done, has remained off abx. Hip still sore. Full ROS performed and neg except as noted above. [facility] Medical History Foot drop Loss of hearing Wears hearing aid Wears glasses Wears contact lenses Wears dentures Cancer History of steroid therapy Arthritis High cholesterol Non-smoker History of stress test History of echocardiogram Cardiology follow-up encounter PONV (postoperative nausea and vomiting) Encounter for education Depression Upper GI bleed Atherosclerosis of coronary artery of [place] heart without angina pectoris Obesity Essential (primary) hypertension GERD (gastroesophageal reflux disease) Type 2 diabetes mellitus Hyperlipidemia Home Medications ?Medication ?Instructions ?Recorded ?Last Taken ?Type aspirin 81 mg chewable tablet 81 mg PO DAILY health maintenance 12/13/17 04/18/24 History benazepril 20 mg tablet 20 mg PO DAILY blood pressure 12/13/17 09/06/19 21:00 History rosuvastatin 5 mg tablet 5 mg PO QHS cholesterol 12/13/17 09/06/19 21:00 History acetaminophen 500 mg tablet 1,000 mg PO Q8 PRN pain 12/18/17 09/06/19 15:00 History paroxetine HCl 30 mg tablet 30 mg PO DAILY 01/26/20 04/24/24 History clopidogrel 75 mg tablet (Plavix) 75 mg PO QDAY #90 tabs 01/02/22 04/18/24 Rx dicyclomine 10 mg capsule 10 mg PO BID 05/15/22 Unknown History ascorbate calcium (vitamin C) 500 500 mg PO DAILY 06/18/23 Unknown History mg tablet mecobalamin (vitamin B12) 1,000 1,000 mcg PO DAILY 06/18/23 Unknown History mcg chewable tablet metformin 500 mg tablet,extended 500 mg PO BID diabetes 06/18/23 Unknown History release 24 hr zinc acetate 50 mg (zinc) capsule 50 mg PO DAILY 06/18/23 Unknown History famotidine 40 mg tablet (Pepcid) 40 mg PO DAILY 04/08/24 04/24/24 History insulin glargine 100 unit/mL (3 10 unit subcut QPM 04/08/24 Unknown History mL) subcutaneous pen (Lantus Solostar U-100 Insulin) isosorbide dinitrate 10 mg tablet See Rx Instructions .Route 05/14/24 Unknown Rx .COMPLEX #270 tabs metoprolol tartrate 25 mg tablet See Rx Instructions .Route 05/18/24 Unknown Rx .COMPLEX #180 TABLETS Allergy/AdvReac Type Severity Reaction Status Date / Time adhesive tape Allergy red, itchy Verified 12/29/24 20:13 atorvastatin (From Lipitor) Allergy myalgias Verified 12/29/24 20:13 Iodinated Contrast Media (CT) Allergy Shortness Verified 12/29/24 20:13 of breath Penicillins Allergy Rash Verified 12/29/24 20:13 pravastatin Allergy myalgias Verified 12/29/24 20:13 Family History Father COPD (chronic obstructive pulmonary disease) Myocardial infarction Mother Diabetes CAD (coronary artery disease) Hx CABG Alzheimers disease CVA (cerebral vascular accident) Brother H/O angioplasty Diabetes Brother CVA (cerebral vascular accident) Son Diabetes Surgical History History of cardiac catheterization History of coronary artery stent placement (05/26/19) History of left heart catheterization (12/07/11) Hx of appendectomy History of laminectomy History of bilateral hip replacements History of total bilateral knee replacement History of hysterectomy H/O total hip arthroplasty Social History household members: none Smoking Status: Never smoker alcohol intake: never substance use type: does not use diet: diabetic caffeine: Yes Type: coffee Number of servings: 3 what type of physical activity do you participate in: other details: PT frequency: 3-4 times per week duration: 30-45 minutes/day seatbelt use: always do you feel safe at home: Yes Physical Exam Const alert, oriented x3 and no apparent distress General Appearance: cooperative HEENT normocephalic and head/scalp atraumatic Eyes PERRL and EOMs intact bilaterally Neck supple and No nodes Resp normal air movement and clear to auscultation bilaterally Cardio regular rate and regular rhythm GI soft to palpation, non-tender and non-distended Extremity General Extremity: Negative for edema Skin no rashes or lesions noted Neuro CN's II-XII intact bilaterally Lab / Micro Data Attestation: I reviewed the patient's lab results. 01/01/25 06:29 01/01/25 06:29 Labs: Laboratory Results - last 24 hr 01/03/25 16:39: POC Glucose 172 H 01/03/25 20:38: POC Glucose 220 H 01/04/25 05:59: POC Glucose 141 H 01/04/25 11:19: POC Glucose 214 H Micro: Microbiology 01/01/25 14:20 Fluid - Synovial (joint) Gram Stain - Final 01/01/25 14:20 Fluid - Synovial (joint) Body Fluid Culture - Preliminary No growth-Final to follow 01/01/25 14:20 Fluid - Synovial (joint) Anaerobic Culture - Preliminary No growth in 48 hours.
--- NOTE | 2025-01-04 15:28 | CASEMGMT ---
CORY CM into pt room, pt with visitors at bedside. Pt denies needs upon homegoing as she expects to have surgery in a week or two. Pt state she has exercises from a previous surgery that she does 2-3x/wk. Ortho to see pt after office hours per pt.
[2025-01-04 16:43] LABS: Bedside Glucose 188 mg/dL (74-106)
--- NOTE | 2025-01-04 16:49 | PCM.PN.ORT ---
Subjective Subjective 79-year-old female with left thigh pain presents today with improvements through the weekend. She has been working with therapy and is mobilized. She notes she has been walking up and down the halls with the assistance of the staff here. Her son is at bedside and agrees she has been doing well and is much more comfortable. She is getting Zanaflex to help with muscle spasms. Cultures from last Saturday's aspirate remain negative. Infectious disease was able to see the patient and at this point have not started her on any antibiotics. Patient reports that her pain is primarily when she begins movement like when rolling over in bed or getting out of her chair to begin walking. After she begins walking she is able to bear weight relatively comfortably at this point. Objective Data Objective Data Vital Signs: Vital Signs Temp Pulse Resp BP Pulse Ox O2 Del Method 98.1 F 71 16 117/63 97 Room Air 01/04/25 14:08 01/04/25 14:08 01/04/25 14:08 01/04/25 14:08 01/04/25 14:08 01/04/25 14:08 Oxygen Delivery Method Room Air Weight: 207 lb 0.225 oz Body Mass Index (BMI) 36.6 Intake & Output: Intake and Output for Last 24 Hours 01/02/25 01/03/25 01/04/25 23:59 23:59 23:59 Intake Total 1750 / 1750 Balance 1750 / 1750 Lab / Micro Data Attestation: I reviewed the patient's lab results. 01/01/25 06:29 01/01/25 06:29 Labs: Laboratory Results - last 24 hr 01/03/25 16:39: POC Glucose 172 H 01/03/25 20:38: POC Glucose 220 H 01/04/25 05:59: POC Glucose 141 H 01/04/25 11:19: POC Glucose 214 H 01/04/25 16:24: POC Glucose 188 H Micro: Microbiology 01/01/25 14:20 Fluid - Synovial (joint) Gram Stain - Final 01/01/25 14:20 Fluid - Synovial (joint) Body Fluid Culture - Preliminary No growth-Final to follow 01/01/25 14:20 Fluid - Synovial (joint) Anaerobic Culture - Preliminary No growth in 48 hours. Physical Exam Narrative Left lower extremity exam is stable. Neurovascular intact distally. Const alert, oriented x3 and no apparent distress Constitutional Narrative: Patient sitting up in chair at bedside. Assessment & Plan Assessment/Plan (1) 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: PLAN: Currently patient symptoms are improved. Her mobility is improved. Patient's lab work is not overly impressive for infection however her x-rays show scalloping of the femur. Her clinical picture is also concerning for loosening of the implant however, my concern is that there is an underlying cause for loosening potential periprosthetic joint infection. We have not been able to establish a firm diagnosis. Patient is doing well enough at this point that we are going to have her continue with activity as tolerated. I did encourage her to take it easy at home and not overdo things. It seems like she has increased pain with increased activity. We discussed the use of muscle relaxers at home may be beneficial however could often have side effects including mental and respiratory depression. Since patient is currently medically stabilized pain is under control and there is mobility and improvement I would recommend we discharge the patient and continue with an outpatient workup. Will continue to follow cultures. I do not feel the patient needs an emergent surgery at this time however I do feel she is likely going to need revision surgery of the hip. The question is what is the appropriate surgical plan, is it possible to retain certain implant such as the acetabular component and attempting to define the underlying cause of the loosening and bone scalloping on x-ray. Patient demonstrates an understanding. Again her son was at bedside and there is a firm understanding of the treatment plan. All parties are in agreement with this. I did discuss the patient that based on her decreased mobility upon discharge home she should begin a baby aspirin twice a day in addition to her Plavix to help in prevention of venous thromboemboli. She is currently on Lovenox in house and would not require beginning aspirin twice a day until discharge. Patient will likely be appropriate for discharge tomorrow would recommend working with physical therapy tomorrow prior to discharge. If there are any further questions or concerns please call orthopedics. [facility] Office:
--- NOTE | 2025-01-04 17:17 | PN.HOSP_ITS ---
Reason for Visit Reason for Visit: Diagnoses Pain in left hip (12/31/24) Pain due to internal orthopedic prosthetic devices, implants and grafts, initial encounter (12/31/24) Presence of left artificial hip joint (12/31/24) Subjective Subjective Patient evaluated with family members at bedside, reports that overall she is doing better, still has some pain but was able to do some steps with physical therapy yesterday, likely going to [place] home tomorrow if she is still doing well and has been out of therapy Objective Data Objective Data Vital Signs: Vital Signs Temp Pulse Resp BP Pulse Ox O2 Del Method 98.1 F 71 16 117/63 97 Room Air 01/04/25 14:08 01/04/25 14:08 01/04/25 14:08 01/04/25 14:08 01/04/25 14:08 01/04/25 14:08 Oxygen Delivery Method Room Air Weight: 93.9 kg Body Mass Index (BMI) 36.6 Intake & Output: Intake and Output for Last 24 Hours 01/02/25 01/03/25 01/04/25 23:59 23:59 23:59 Intake Total 1750 / 1750 Balance 1750 / 1750 Lab / Micro Data 01/01/25 06:29 01/01/25 06:29 Labs: Laboratory Results - last 24 hr 01/03/25 20:38: POC Glucose 220 H 01/04/25 05:59: POC Glucose 141 H 01/04/25 11:19: POC Glucose 214 H 01/04/25 16:24: POC Glucose 188 H Micro: Microbiology 01/01/25 14:20 Fluid - Synovial (joint) Gram Stain - Final 01/01/25 14:20 Fluid - Synovial (joint) Body Fluid Culture - Preliminary No growth-Final to follow 01/01/25 14:20 Fluid - Synovial (joint) Anaerobic Culture - Preliminary No growth in 48 hours. Physical Exam Narrative General: Alert, oriented, no apparent distress HEENT: Atraumatic, normocephalic Eyes: extraocular movements grossly intact Neck: Supple Respiratory: normal respiratory effort Cardiovascular: no edema appreciated GI: nondistended Extremities: Moving all extremities Neuro: No overt focal neurological deficits Psych: Cooperative Assessment & Plan Assessment/Plan (1) Hip pain, left: PLAN: Plan #1. Intractable left hip pain most likely due to loose screws/prosthesis, complicated by chronic neuropathy, debility, adult failure to thrive: Patient admitted to [facility]. Orthopedic surgery Dr. Oh/Dr. Solis Meek consulted. He felt pelvic x-ray shows no acute fracture but suspected loosening of the screws. 12/31: Patient had MRI which showed T2 abnormal hyperintensity signal in the soft tissues surrounding the hip implant and distal femur medullary compartment possible due to loosening of the prosthesis or infectious process. There is note by radiology [employer] stating plan for ultrasound-guided drainage on 01/01/2025. Recommended to hold Lovenox for 2 doses of 24 hours preprocedure. Hold enoxaparin and Plavix too. ESR normal. CRP elevated 11.2. Patient is supposed to see Dr. Oh today 01/01: Orthopedic surgeon Dr. Oh note reviewed. MRI showing some fluid around the femur/left hip. Plan for ultrasound-guided fluid aspiration and will send for analysis and culture. Fluid will monitor. If there is concern of infectious etiology, will consult ID for antibiotic guidance. Future course of action dependent on whether there is infection in the left hip/femur or loosening of the prosthesis. 01/02: Left hip aspiration fluid Gram stain culture pending. Cell count reporting shows canceled. Patient allowed assisted ambulation under supervision of physical therapy 01/03: Gram stain of left hip aspirate still shows pending. ID consulted for opinion as there is suspicion of left hip prosthetic joint infection -01/04: ID recommends holding off on starting antibiotics and to continue following cultures, Ortho was also in agreement with this, if patient is still doing well tomorrow can likely DC for outpatient follow-up with recommendations from Ortho for aspirin twice daily in addition to Plavix for DVT prophylaxis and following with Ortho on discharge #CAD -Continue home medications Crestor, metoprolol, aspirin, Plavix #Type 2 diabetes mellitus -Glucose checks and sliding scale insulin - Continue long-acting insulin #Hypertension - Fairly well-controlled on patient's Imdur, and metoprolol #GERD -Continue home famotidine #Depression/anxiety -Continue home medications #DVT ppx: Lovenox subcu Rosy Nguyen MD Time spent in the patient's overall evaluation, decision-making process, review of diagnostic data, adjustment of management, discussion with other providers, nursing and ancillary staff involved in patient's care documentation, 37 Minutes Charges/Coding Visit Charges Inpatient E&M: 80143 Subs Hosp L2
[2025-01-04] MEDS: Menthol/Lanolin/Calamine/Znox 113 GM Tube 1 APPLIC TOPICAL (17:30)
[2025-01-04 21:15] VITALS: BP 125/57; PULSE 64; RESP 15; TEMP 36.6; O2SAT 95
[2025-01-04] MEDS: Rosuvastatin Calcium 5 MG Tablet PO (21:20)
[2025-01-04 21:21] VITALS: PULSE 64
[2025-01-04 22:37] LABS: Bedside Glucose 248 mg/dL (74-106)
[2025-01-05 04:57] VITALS: BP 143/54; PULSE 63; RESP 15; TEMP 36.3; O2SAT 97
[2025-01-05] MEDS: tiZANidine HCl 2 MG Tablet PO (06:28)
[2025-01-05 06:53] LABS: Bedside Glucose 142 mg/dL (74-106)
[2025-01-05 07:58] VITALS: BP 102/47; PULSE 61; RESP 12; TEMP 35.7; O2SAT 98
[2025-01-05] MEDS: Gabapentin 100 MG Capsule PO ×2 (08:16→11:31)
[2025-01-05] MEDS: Aspirin 81 MG TAB.CHEW PO (08:16)
[2025-01-05 09:53] VITALS: BP 107/52; PULSE 68
[2025-01-05] MEDS: Insulin Glargine-YFGN 100 UNIT/ML Pen 15 UNIT SC (09:56)
[2025-01-05] MEDS: Dicyclomine 10 MG Capsule PO (09:56)
[2025-01-05 09:59] VITALS: PULSE 68
[2025-01-05] MEDS: Metoprolol Tartrate 25 MG Tablet PO (09:59)
[2025-01-05] MEDS: Enoxaparin 40 MG/0.4 ML Syringe SC (09:59)
--- NOTE | 2025-01-05 10:00 | PCM.PN.ID ---
Physical Exam Narrative Feeling a little better, no fever, no n/v/d, no rash. Const alert and no apparent distress General Appearance: cooperative Resp normal air movement and clear to auscultation bilaterally Cardio regular rate and regular rhythm GI soft to palpation, non-tender and non-distended Skin no rashes or lesions noted ID ID: Route of nutrition/ use of supplements: [] Nutritional Intake: [] IV Site: [] Rodriguez Catheter: [] Assessment & Plan Assessment/Plan (1) 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: PLAN: Aspiration gram stain and cx remain neg. No fever, no leukocytosis. Port in place in R chest. Some hardware loosening seen, will cont to monitor off of abx for now. Spoke with micro lab and requested cx held for 14 [address] OR planned with Dr. Oh for early January. Will follow
[2025-01-05] MEDS: PARoxetine 10 MG Tablet 30 MG PO (10:01)
[2025-01-05] MEDS: Famotidine 20 MG Tablet 40 MG PO (10:01)
[2025-01-05] MEDS: Clopidogrel Bisulfate 75 MG Tablet PO (10:02)
[2025-01-05] MEDS: Insulin Lispro 100 UNIT/ML INSULN.PEN SC (11:30)
[2025-01-05 11:52] LABS: Bedside Glucose 193 mg/dL (74-106)
--- NOTE | 2025-01-05 12:54 | DCINST_ITS ---
Discharge Instructions Diet Discharge Diet: - (Consistent carbohydrate) DC O2, CPAP, BIPAP needs Home O2 Discharge instructions: No Dressing / Incision Discharge Activity: - (Activity as tolerated) Follow Up Care Test Results: Test results from this visit will be discussed in further detail at your follow- up appointment, if applicable. Discharge Plan Admission Admit Date/Time: 12/31/24 15:43 Primary Reason for Your Visit: Left hip pain Attending Provider: Rosy Nguyen Primary Care Provider: Lisa Gamble Consulting Providers: Chye Clark; Solis Meek; Henrique Holloway; Terrance Harrell Instructions Patient Instructions: ED Fall Prevention Additional Instructions / Restrictions: DISCHARGE INSTRUCTIONS PLEASE READ *Please take this with you to your next doctors appointment* -Please follow-up with orthopedic surgery upon discharge. Please call their office to schedule hospital follow-up appointment upon discharge if you do not already have one scheduled. - You will need to take a baby aspirin twice daily in addition your Plavix to help prevent blood clots -Your lisinopril has been stopped at this time due to a very well-controlled blood pressure, this may need to be restarted in the future but would follow-up closely with your primary care physician this can be resumed if necessary at that time - You will be discharged with a short course of gabapentin 3 times daily as you did well with this in the hospital, It will be important follow-up with your outpatient doctors for further management. -We discussed your glucose monitoring and insulin regimen, if there are any further questions or concerns please contact your prescribing provider -Please call your primary care provider's office upon discharge to schedule a hospital follow up within 1 week. -For any concerning signs or symptoms please call 911 or proceed to the nearest emergency department Discharge Orders/Prescriptions Prescriptions: New gabapentin 100 mg Capsule 100 mg PO TIDCM 14 Days Qty: 42 0RF Continued paroxetine HCl 30 mg tablet 30 mg PO DAILY Patient Comments: take 1 tablet by mouth every morning metformin 500 mg tablet extended release 24 hr 500 mg PO BID Patient Comments: DIABETES dicyclomine 10 mg capsule 10 mg PO BID mecobalamin (vitamin B12) 1,000 mcg tablet,chewable 1,000 mcg PO DAILY ascorbate calcium (vitamin C) 500 mg tablet 500 mg PO DAILY zinc acetate 50 mg (zinc) capsule 50 mg PO DAILY insulin glargine [Lantus Solostar U-100 Insulin] 100 unit/mL (3 mL) insulin pen 10 unit subcut QPM Rx Instructions: 10 units at bedtime 45 units in the am famotidine [Pepcid] 40 mg tablet 40 mg PO DAILY acetaminophen 500 mg tablet 1,000 mg PO Q8 PRN (Reason: pain) Patient Comments: Pain rosuvastatin 5 MG tablet 5 mg PO QHS clopidogrel [Plavix] 75 mg tablet 75 mg PO QDAY Qty: 90 3RF isosorbide dinitrate 10 mg tablet See Rx Instructions .ROUTE .COMPLEX Qty: 270 3RF Dose Instruction: take 1 tablet by mouth three times a day for blood pressure Rx Instructions: take 1 tablet by mouth three times a day for blood pressure metoprolol tartrate 25 mg tablet See Rx Instructions .ROUTE .COMPLEX Qty: 180 3RF Dose Instruction: take 1 tablet by mouth twice a day for blood pressure Rx Instructions: take 1 tablet by mouth twice a day for blood pressure Changed aspirin 81 MG tablet,chewable 81 mg PO BID Qty: 60 0RF Discontinued benazepril 20 MG tablet 20 mg PO DAILY Patient Comments: TAKE ONE TABLET BY MOUTH EVERY DAY Referrals / Follow Up: Lisa Gamble DO [Primary Care Provider] - Within 1 Week Tarik Oh MD [Med Staff - Active Staff] - Disposition Disposition (needs filled in before D/C Order can be placed): Home, Self Care
--- NOTE | 2025-01-05 12:58 | PCM.DC.SUM ---
Providers Date of Admission: 12/31/24 Date of Discharge: 01/05/25 Primary Care Physician: Dr. Lisa Gamble, Consultations 12/30/24 11:05 Consult: Orthopedics Routine Consulting Provider: Solis Meek Reason for Consult: loose screws in hip- pt sees Dr. Oh EMERGENT Consult: No Notified: Yes Date Notified: 12/30/24 Time Notified: 11:06 Method of Notification: Answering Service 01/03/25 09:29 Consult: Infectious Disease Routine Consulting Provider: Henrique Holloway Reason for Consult: left hip prosthesis loosening/infection? EMERGENT Consult: No Notified: Yes Date Notified: 01/03/25 Time Notified: 09:29 Method of Notification: Text Reason For Visit: INTRACTABLE L HIP PAIN, ADULT FTT Diagnosis Discharge Diagnosis (1) 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: Status: Acute Code(s): T84.84XA - Pain due to internal orthopedic prosthetic devices, implants and grafts, initial encounter; Z96.642 - Presence of left artificial hip joint Plan # Left hip pain most likely due to the screws/prosthesis # History of coronary artery disease history of diabetes # Hypertension # GERD # Grade 3A follicular lymphoma # Depression and anxiety Medications at Discharge Home Medications rosuvastatin 5 mg tablet 5 mg PO QHS cholesterol 12/13/17 acetaminophen 500 mg tablet 1,000 mg PO Q8 PRN pain 12/18/17 paroxetine HCl 30 mg tablet 30 mg PO DAILY 01/26/20 clopidogrel 75 mg tablet (Plavix) 75 mg PO QDAY #90 tabs 01/02/22 dicyclomine 10 mg capsule 10 mg PO BID 05/15/22 ascorbate calcium (vitamin C) 500 mg tablet 500 mg PO DAILY 06/18/23 mecobalamin (vitamin B12) 1,000 mcg chewable tablet 1,000 mcg PO DAILY 06/18/23 metformin 500 mg tablet,extended release 24 hr 500 mg PO BID diabetes 06/18/23 zinc acetate 50 mg (zinc) capsule 50 mg PO DAILY 06/18/23 famotidine 40 mg tablet (Pepcid) 40 mg PO DAILY 04/08/24 insulin glargine 100 unit/mL (3 mL) subcutaneous pen (Lantus Solostar U-100 Insulin) 10 unit subcut QPM 04/08/24 isosorbide dinitrate 10 mg tablet See Rx Instructions .Route .COMPLEX #270 tabs 05/14/24 metoprolol tartrate 25 mg tablet See Rx Instructions .Route .COMPLEX #180 TABLETS 05/18/24 aspirin 81 mg chewable tablet 81 mg PO BID health maintenance #60 tabs 01/05/25 gabapentin 100 mg capsule 100 mg PO TIDCM 14 days #42 caps 01/05/25 Hospital Course Summary of Care Provided Minutes Spent on Discharge: 31 Hospital Course: # Left hip pain most likely due to the screws/prosthesis # History of coronary artery disease history of diabetes # Hypertension # GERD # Grade 3A follicular lymphoma # Depression and anxiety 79-year-old female with history as above presented to [facility] ED 12/29/2024 due to left hip pain that worsened on day of presentation and was sharp and stabbing in nature and worse with weightbearing. She was known to have a prior open reduction internal fixation of the femur after a fracture. X-ray negative for acute process. Due to patient's functional decline however hospitalist contacted for admission. Ortho consulted and patient had MRI on 12/31 which showed T2 abnormal hyperintensity signal in soft tissue surrounding hip implant and distal femur possibly due to loosening of prosthesis versus infectious process. There is ultrasound-guided drainage 01/22 which was sent for culture. Cultures been negative thus far with no growth to date, seen by infectious disease and is recommended to continue to monitor off of antibiotics given thus far no organism has grown. Patient evaluated by Ortho multiple times and given her improvement in symptoms/mobility was recommended that patient be discharged home with mobility as tolerated and follow-up outpatient for further workup and management. Ortho recommended baby aspirin twice daily in addition to Plavix given her decreased mobility to prevent VTE. On day of discharge patient reports she is still feeling better than she was with progressively improving symptoms/mobility, she is comfortable with discharge home and plans for outpatient follow-up. No other new or acute complaints. Discharge instructions as followed: -Please follow-up with orthopedic surgery upon discharge. Please call their office to schedule hospital follow-up appointment upon discharge. - You will need to take a baby aspirin twice daily in addition your Plavix to help prevent blood clots -Your lisinopril has been stopped at this time due to a very well-controlled blood pressure, this may need to be restarted in the future but would follow-up closely with your primary care physician this can be resumed if necessary at that time - You will be discharged with a short course of gabapentin 3 times daily as you did well with this in the hospital, you will also be discharged with short course of as needed muscle relaxer as this was also helpful in the hospital. It will be important follow-up with your outpatient doctors for further workup and management. Physical Exam Narrative General: Alert, oriented, no apparent distress HEENT: Atraumatic, normocephalic Eyes: extraocular movements grossly intact Neck: Supple Respiratory: normal respiratory effort Cardiovascular: no edema appreciated GI: nondistended Extremities: Moving all extremities Neuro: No overt focal neurological deficits Psych: Cooperative Weight / BMI Weight Weight: 93.9 kg Body Mass Index (BMI) 36.6 ABG / Lab / Microbiology Data 01/01/25 06:29 01/01/25 06:29 Laboratory: Laboratory Results - last 24 hr 01/04/25 21:56: POC Glucose 248 H 01/05/25 06:31: POC Glucose 142 H 01/05/25 11:28: POC Glucose 193 H Microbiology: Microbiology 01/01/25 14:20 Fluid - Synovial (joint) Gram Stain - Final 01/01/25 14:20 Fluid - Synovial (joint) Body Fluid Culture - Preliminary No growth-Final to follow 01/01/25 14:20 Fluid - Synovial (joint) Anaerobic Culture - Preliminary No growth in 48 hours. D/C Instructions Discharge Diet: - (Consistent carbohydrate) DC O2, CPAP, BIPAP Needs Home O2 Discharge instructions: No Meaningful Use Info Meaningful Use Meaningful Use Diagnoses (Choose all that apply): None applicable Ischemic Stroke Statin Dosing Therapy Reference: STATIN DOSE THERAPY REFERENCE: * Patients > 75 years receive moderate or high dose statin therapy. * Patients 75 years or YOUNGER should receive HIGH intensity statin dose unless contraindicated. You will be required to document reason for non-treatment if statin daily dose does not meet guidelines. HIGH DOSE STATIN THERAPY DAILY Atorvastatin > than or = to 40 mg Rosuvastatin > than or = to 20 mg Amlodipine + Atorvastatin > than or = to 2.5/40 mg Ezetimibe + Simvastatin 10/80 mg Simvastatin 80mg Discharge Plan Admission Admit Date/Time: 12/31/24 15:43 Primary Reason for Your Visit: Left hip pain Attending Provider: Rosy Nguyen Primary Care Provider: Lisa Gamble Consulting Providers: Chey Clark; Solis Meek; Henrique Holloway; Terrance Harrell Instructions Patient Instructions: ED Fall Prevention Additional Instructions / Restrictions: DISCHARGE INSTRUCTIONS PLEASE READ *Please take this with you to your next doctors appointment* -Please follow-up with orthopedic surgery upon discharge. Please call their office to schedule hospital follow-up appointment upon discharge if you do not already have one scheduled. - You will need to take a baby aspirin twice daily in addition your Plavix to help prevent blood clots -Your lisinopril has been stopped at this time due to a very well-controlled blood pressure, this may need to be restarted in the future but would follow-up closely with your primary care physician this can be resumed if necessary at that time - You will be discharged with a short course of gabapentin 3 times daily as you did well with this in the hospital, It will be important follow-up with your outpatient doctors for further management. -We discussed your glucose monitoring and insulin regimen, if there are any further questions or concerns please contact your prescribing provider -Please call your primary care provider's office upon discharge to schedule a hospital follow up within 1 week. -For any concerning signs or symptoms please call 911 or proceed to the nearest emergency department Discharge Orders/Prescriptions Prescriptions: New gabapentin 100 mg Capsule 100 mg PO TIDCM 14 Days Qty: 42 0RF Continued paroxetine HCl 30 mg tablet 30 mg PO DAILY Patient Comments: take 1 tablet by mouth every morning metformin 500 mg tablet extended release 24 hr 500 mg PO BID Patient Comments: DIABETES dicyclomine 10 mg capsule 10 mg PO BID mecobalamin (vitamin B12) 1,000 mcg tablet,chewable 1,000 mcg PO DAILY ascorbate calcium (vitamin C) 500 mg tablet 500 mg PO DAILY zinc acetate 50 mg (zinc) capsule 50 mg PO DAILY insulin glargine [Lantus Solostar U-100 Insulin] 100 unit/mL (3 mL) insulin pen 10 unit subcut QPM Rx Instructions: 10 units at bedtime 45 units in the am famotidine [Pepcid] 40 mg tablet 40 mg PO DAILY acetaminophen 500 mg tablet 1,000 mg PO Q8 PRN (Reason: pain) Patient Comments: Pain rosuvastatin 5 MG tablet 5 mg PO QHS clopidogrel [Plavix] 75 mg tablet 75 mg PO QDAY Qty: 90 3RF isosorbide dinitrate 10 mg tablet See Rx Instructions .ROUTE .COMPLEX Qty: 270 3RF Dose Instruction: take 1 tablet by mouth three times a day for blood pressure Rx Instructions: take 1 tablet by mouth three times a day for blood pressure metoprolol tartrate 25 mg tablet See Rx Instructions .ROUTE .COMPLEX Qty: 180 3RF Dose Instruction: take 1 tablet by mouth twice a day for blood pressure Rx Instructions: take 1 tablet by mouth twice a day for blood pressure Changed aspirin 81 MG tablet,chewable 81 mg PO BID Qty: 60 0RF Discontinued benazepril 20 MG tablet 20 mg PO DAILY Patient Comments: TAKE ONE TABLET BY MOUTH EVERY DAY Referrals / Follow Up: Lisa Gamble DO [Primary Care Provider] - Within 1 Week Tarik Oh MD [Med Staff - Active Staff] - Disposition Disposition (needs filled in before D/C Order can be placed): Home, Self Care Charges/Coding Visit Charges Inpatient E&M: 16266 Disch Hosp >30min
== END 2025-01-05 13:32 | disposition home or self-care (01) | DRG 560 ==
LOC: ED 12-30 00:18 → MS3 12-30 00:26
PROVIDERS: Internal Medicine; Specialist; Admitting Provider Family Medicine; Emergency Provider Emergency Medicine; PCP Family Medicine; Visit Provider Internal Medicine
DX: T84.84XA Pain due to internal orthopedic prosthetic devices, implants and grafts, initial encounter (principal); C82.20 Follicular lymphoma grade III, unspecified, unspecified site; R62.7 Adult failure to thrive; E11.22 Type 2 diabetes mellitus with diabetic chronic kidney disease; D50.9 Iron deficiency anemia, unspecified; E11.42 Type 2 diabetes mellitus with diabetic polyneuropathy; I12.9 Hypertensive chronic kidney disease with stage 1 through stage 4 chronic kidney disease, or unspecified chronic kidney disease; E66.9 Obesity, unspecified; Z95.828 Presence of other vascular implants and grafts; M25.552 Pain in left hip; N18.2 Chronic kidney disease, stage 2 (mild); E78.00 Pure hypercholesterolemia, unspecified; I25.10 Atherosclerotic heart disease of native coronary artery without angina pectoris; K21.9 Gastro-esophageal reflux disease without esophagitis; M21.372 Foot drop, left foot; M48.061 Spinal stenosis, lumbar region without neurogenic claudication; M16.0 Bilateral primary osteoarthritis of hip; R53.81 Other malaise; Z79.82 Long term (current) use of aspirin; Z83.3 Family history of diabetes mellitus; Z95.5 Presence of coronary angioplasty implant and graft; Z90.710 Acquired absence of both cervix and uterus; Z79.02 Long term (current) use of antithrombotics/antiplatelets; Z96.642 Presence of left artificial hip joint; R22.32 Localized swelling, mass and lump, left upper limb; Y79.2 Prosthetic and other implants, materials and accessory orthopedic devices associated with adverse incidents
CPT/HCPCS: 36415; 72170; 73552; 73718; 76942; 80048; 80053; 82962; 83735; 85025; 85610; 85652; 85730; 86140; 87070; 87075; 87205; 88108; 88305; 88313; 88341; 88342; 94668; 97116; 97162; 97166; 97530; 97535; 99285; A4216

== ENCOUNTER → 2025-02-24 | Outpatient (CLI) | payer MEDICARE, OTHER, SELFPAY ==
[2019-05-26 10:53] VITALS: BMI 38.9
--- NOTE | 2025-02-24 15:20 | CT_ITS ---
PROCEDURE: SOFT TISSUE NECK WITHOUT CONTR 02/24/2025 REASON FOR EXAM: FOLLICULAR LYMPHOMA TECHNIQUE: CT of the soft tissues of the neck from the orbits to the upper mediastinum without intravenous contrast One or more dose reduction techniques were used (e.g., Automated exposure control, adjustment of the mA and/or kV according to patient size, use of iterative reconstruction technique). RADIATION DOSE SUMMARY: CTDlvol: 20.32+ 20.24+ 20.39 mGy DLP: 2314.92 mGycm COMPARISON: None. FINDINGS: Airway: Midline and patent. Salivary glands: Unremarkable. Lymph nodes: No cervical lymphadenopathy. Thyroid: Unremarkable. Vasculature: Moderate calcified plaque of the carotid arteries. Orbits: Unremarkable at visualized levels. Paranasal sinuses and mastoids: Grossly clear at visualized levels. Lung apices: Clear. Upper mediastinum: Visualized mediastinum is unremarkable. Bones: Multilevel degenerative changes of the spine. Other: Right chest infusion port. CT/Soft Tissue Neck without Contr IMPRESSION: No acute abnormalities. Reading Location: [id number]
--- NOTE | 2025-02-24 15:20 | CT_ITS ---
EXAM: CT Chest, Abdomen and Pelvis Without Intravenous Contrast CLINICAL INDICATION: NEW SPLENOMEGALY; H/O FOLLICULAR LYMPHOMA TECHNIQUE: Axial computed tomography images of the chest, abdomen and pelvis without intravenous contrast. This CT exam was performed using one or more of the following dose reduction techniques: automated exposure control, adjustment of the mA and/or kV according to patient size, and/or use of iterative reconstruction technique. COMPARISON: No relevant prior studies available. FINDINGS: CHEST: LUNGS AND PLEURAL SPACES: Unremarkable. No mass. No consolidation. No significant effusion. No pneumothorax. HEART: Unremarkable. No cardiomegaly. No significant pericardial effusion. No significant coronary artery calcifications. MEDIASTINUM: A few prominent mediastinal lymph nodes measuring up to 6 mm. Small esophageal hiatal hernia. ABDOMEN: LIVER: Hepatic cysts. GALLBLADDER AND BILE DUCTS: Cholelithiasis. No ductal dilation. PANCREAS: Unremarkable. No ductal dilation. SPLEEN: Unremarkable. No splenomegaly. ADRENALS: Unremarkable. No mass. KIDNEYS AND URETERS: Unremarkable. No obstructing stones. No hydronephrosis. STOMACH AND BOWEL: Fecal retention in the colon consistent with constipation. No obstruction. No mucosal thickening. PELVIS: APPENDIX: No findings to suggest acute appendicitis. BLADDER: Unremarkable. No stones. REPRODUCTIVE: Unremarkable as visualized. CHEST, ABDOMEN and PELVIS: INTRAPERITONEAL SPACE: Unremarkable. No significant fluid collection. No free air. BONES/JOINTS: Cortical irregularity of the left 4th and 5th ribs could be nondisplaced fracture. Bilateral hip replacement resulting in beam hardening artifacts. These limit evaluation of the pelvis. Multilevel endplate degenerative changes and disc disease of the visualized spine, most prominent from L2-L5. SOFT TISSUES: Unremarkable. VASCULATURE: Scattered calcified atherosclerotic disease of aorta. No aortic aneurysm. LYMPH NODES: See above. CT/CT Chest, Abd, Pelvis WO Cont IMPRESSION: 1. Cortical irregularity of the left 4th and 5th ribs could be nondisplaced fr acture. 2. Small esophageal hiatal hernia. 3. Cholelithiasis. 4. Fecal retention in the colon consistent with constipation. Reading Location: [facility]
== END | disposition home or self-care (01) ==
LOC: CT 15:19
PROVIDERS: PCP Family Medicine; Referring Provider Nurse Practitioner Family; Visit Provider Nurse Practitioner Family
DX: C82.38 Follicular lymphoma grade IIIa, lymph nodes of multiple sites (principal)
CPT/HCPCS: 70490; 71250; 74176

== ENCOUNTER → 2025-03-10 | Outpatient (CLI) | payer MEDICARE, OTHER, SELFPAY ==
[2019-05-26 10:53] VITALS: BMI 38.9
--- NOTE | 2025-03-10 13:16 | BI_ITS ---
EXAM: SCRN MAMM (CAD)W/EDMUND BILAT 03/10/2025 CLINICAL HISTORY: F, Age 79 y/o , SCREENING TECHNIQUE: Bilateral screening digital breast tomosynthesis with 2D and 3D images. Computer aided detection. COMPARISON: Prior exam(s) dated 03/09/2024, 02/28/2023, 02/27/2022. FINDINGS: TISSUE DENSITY: The breast tissue is composed of scattered area of fibroglandular density. Bilateral Breast Mammographic Findings: No significant masses, calcifications or other abnormalities are identified. BI/SCRN MAMM (CAD)W/EDMUND BILAT IMPRESSION: Right Breast: BIRADS 1 NEGATIVE. Left Breast: BIRADS 1 NEGATIVE. OVERALL FINAL ASSESSMENT: BIRADS 1 NEGATIVE. RECOMMENDATION: Routine annual follow-up in 1 Year A letter with findings and recommendations will be mailed to the patient. Reading Location: [id number]
== END | disposition home or self-care (01) ==
LOC: OPBI 13:14
PROVIDERS: PCP Family Medicine; Referring Provider Family Medicine; Visit Provider Family Medicine
DX: Z12.31 Encounter for screening mammogram for malignant neoplasm of breast (principal)
CPT/HCPCS: 77063; 77067

== ENCOUNTER → 2025-05-25 | Outpatient (CLI) | payer MEDICARE, OTHER, SELFPAY ==
[2019-05-26 10:53] VITALS: BMI 38.9
== END | disposition home or self-care (01) ==
LOC: LABSPEC 13:40
PROVIDERS: PCP Family Medicine; Visit Provider Family Medicine
DX: R30.0 Dysuria (principal)
CPT/HCPCS: 87077; 87086; 87088; 87186

== ENCOUNTER → 2025-06-24 | Outpatient (CLI) | payer MEDICARE, OTHER, SELFPAY ==
[2019-05-26 10:53] VITALS: BMI 38.9
--- NOTE | 2025-06-24 07:11 | MRI_ITS ---
PROCEDURE: SPINE LUMBAR W/WO CONTRAST 06/24/2025 REASON FOR EXAM: PAIN, STENOSIS, HX OF LAMINECTOMY. TECHNIQUE: Procedure Code: [id number] Modality: MR Procedure: SPINE LUMBAR W/WO CONTRAST Multiplanar and multisequence images were obtained without and with intravenous gadolinium-based contrast administration. CONTRAST: Clariscan VOLUME: 20. ML COMPARISON: Lumbar spine x-ray 11/19/2024. FINDINGS: Vertebrae: Preserved in height and signal. Alignment: Normal. Conus Medullaris: Unremarkable. T12-L1: Left paracentral/foraminal disc extrusion measures 9 mm. Narrowing of the left subarticular space and moderate narrowing of the left foramina. Moderate canal stenosis. No right foramina stenosis. L1-2: Disc desiccation. Disc bulge. Facet joint arthropathy. Moderate bilateral foramina stenosis. Moderate stenosis. L2-3: Disc desiccation. Disc bulge. Status post laminectomy. Moderate bilateral foramina stenosis. No canal stenosis. L3-4: Disc desiccation. Disc bulge. Facet joint arthropathy. Severe bilateral foramina stenosis. No canal stenosis. L4-5: Disc desiccation. Disc bulge. Left foraminal and paracentral causing severe narrowing of the left subarticular space and severe left foramina stenosis. Status post laminectomies. L5-S1: Bilateral facet joint arthropathy and mild bilateral foramina stenosis. No canal stenosis. Sacrum: Unremarkable. Postcontrast images: No abnormal enhancement. No abscesses or infectious process. No epidural soft tissue thickening. MRI/Spine Lumbar W/WO Contrast IMPRESSION: Status post laminectomies at L3, L4 and L5. Unremarkable postsurgical MRI of t he lumbar spine without evidence of acute process. Degenerate changes at the remainder levels as detailed predominantly for severe canal stenosis at L1-L2. Reading Location: [id number]
--- OUTSIDE RECORDS SUMMARY | 2025-06-24 07:12 | XMS RPT_ITS | CCD ---
Author Organization [facility] Care Team Providers Care Foreclosure Clerk Name Role Phone Dr. Lisa Gamble Primary Care Provider Dr. Lisa Gamble Referring Provider Dr. Richard Gutierrez Attending Provider Dr. Lisa Gamble Primary Care Provider [phone] Vasquez GUADALUPE, METEOROLOGICAL AIDE-C Rosanne Referring Provider Vasquez GUADALUPE, METEOROLOGICAL AIDE-C Rosanne Other Provider Dr. Richard Gutierrez Attending Provider Dr. Lisa Gamble Primary Care Provider Dr. Lisa Gamble Referring Provider [phone] Isai GUADALUPE, METEOROLOGICAL AIDE-C Arslan Orr Attending Provider Unavailable Primary Care Provider UnavailVALDEMAR Mijares Attending Unavailable Lisa Gamble DO Primary Care Provider [phone] Frederic Laurent DO Primary Care Provider [phone] VALDEMAR GUARDADO Referring Unavailable LISA GAMBLE Primary Care Unavailable VALDEMAR GUARDADO Referring Unavailable LISA GAMBLE Primary Care Unavailable VALDEMAR GUARDADO Admitting Unavailable VALDEMAR GUARDADO Attending Unavailable LISA GAMBLE Primary Care Unavailable LISA GAMBLE Referring Unavailable Dr. Lisa Gamble DO Primary Care Provider [phone] Dr. Lisa Gamble DO Referring Provider Isai METEOROLOGICAL AIDE-CArslan Attending Provider Prah MD, Dr. Pyle Attending Provider Tulio DPM, Dr. Maharaj Attending Provider Tulio DPM, Dr. Maharaj Referring Provider Tulio DPM, Dr. Maharaj Other Provider Lee CLAYTON, Dr. Fish Attending Provider Mavis STEVENS, Dr. Gonzalez Primary Care Provider Mavis STEVENS, Dr. Gonzalez Referring Provider Tamy STEVENS, Dr. Nunez Emergency Provider Amber CLAYTON, Dr. Chey Alejandra Admit Provider Amber CLAYTON, Dr. Chey Alejandra Attending Provider Mavis STEVENS, Dr. Gonzalez Primary Care Provider Amber CLAYTON, Dr. Chey Alejandra Other Provider Julio Cesar CLAYTON, Dr. Carlos Other Provider Fantasma CLAYTON, Dr. Ely Other Provider Sofiya METEOROLOGICAL AIDE-C, Koki Attending Provider Julio Cesar CLAYTON, Dr. Carlos Attending Provider Jewel CLAYTON, Dr. Duenas Other Provider Patrick CLAYTON, Dr. Gallegos Attending Provider Patrick CLAYTON, Dr. Gallegos Other Provider Mavis STEVENS, Dr. Gonzalez Referring Provider Dr. Edenilson Campoverde MD Attending Provider Amador METEOROLOGICAL AIDE-C, Gladys Attending Provider Mavis STEVENS, Dr. Gonzalez Referring Provider Nirali CLAYTON, Dr. Pyle Attending Provider Amador METEOROLOGICAL AIDE-C, Gladys Referring Provider Mavis STEVENS, Dr. Gonzalez Attending Provider Mavis STEVENS, Dr. Gonzalez Primary Care Provider Dr. Edenilson Campoverde MD Attending Provider Koki Arriaza Attending Unavailable Malys, Primary Care Unavailable White, Chey L Admitting Unavailable White, Chey L Consulting Unavailable Meek, Solis Consulting Unavailable Julio Cesar, Terrance Consulting Unavailable Julio Cesar, Terrance Attending Unavailable Julio Cesar, Terrance Attending Unavailable Malys, Primary Care Unavailable White, Chey L Admitting Unavailable White, Chye L Consulting Unavailable Meek, Solis Consulting Unavailable Jewel, Henrique Consulting Unavailable Julio Cesar, Terrance Consulting Unavailable Nguyen, Rosy Attending Unavailable Nguyen, Rosy Consulting Unavailable Malys, Attending Unavailable Malys, Primary Care Unavailable Malys, Referring Unavailable Rosy Nguyen Attending Unavailable Malys, Primary Care Unavailable White, Chey L Admitting Unavailable White, Chey L Consulting Unavailable Meek, Solis Consulting Unavailable Jewel, Henrique Consulting Unavailable Julio Cesar, Terrance Consulting Unavailable Tarik Roque Attending Unavailable Malys, Primary Care Unavailable Tarik Roque Admitting Unavailable Edenilson Campoverde Attending Unavailable Malys, Primary Care Unavailable Malys, Referring Unavailable Malys, Attending Unavailable Malys, Primary Care Unavailable Malys, Primary Care Unavailable Horn, Carol Ann Consulting Unavailable Polina Howard Attending Unavailable Tulio, Carol Ann Referring Unavailable Koki Arriaza Attending Unavailable Malys, Primary Care Unavailable Malys, Referring Unavailable Amador METEOROLOGICAL AIDE, Gladys Attending Unavailable Malys, Primary Care Unavailable Malys, Referring Unavailable Arslan Alex NP Attending Unavailable Edenilson Campoverde Attending Unavailable Malys, Referring Unavailable Malys, Primary Care Unavailable Malys, Referring Unavailable Malys, Primary Care Unavailable Susie Yoon Attending Unavailable Malys, Primary Care Unavailable Richard Gutierrez Attending Unavailable Malys, Referring Unavailable Malys, Primary Care Unavailable Edenilson Campoverde Attending Unavailable Malys, Primary Care Unavailable Horn, Carol Ann Referring Unavailable Horn, Carol Ann Attending Unavailable Amador METEOROLOGICAL AIDE, Gladys Referring Unavailable Amador METEOROLOGICAL AIDE, Gladys Attending Unavailable Malys, Primary Care Unavailable Malys, Attending Unavailable Malys, Primary Care Unavailable Malys, Referring Unavailable Amador METEOROLOGICAL AIDE, Gladys Attending Unavailable Malys, Primary Care Unavailable Lisa Gamble Referring Unavailable Chey Clark Attending Unavailable Allergies Allergy Classification Reported Allergen(s) Allergy Type Date of Onset Reaction(s) Facility (19 sources) atorvastatin Drug Allergy 1 myalgias [facility] (20 sources) Penicillins; Translations: [PENICILLINS] Allergy to substance 5 Rash [facility] (19 sources) Pravastatin Drug Allergy 1 myalgias [facility] (3 sources) CAT SCAN DYE Allergy to substance 1 Shortness of breath [facility] Work Phone: (4 sources) NON-PAPER TAPE Allergy to substance 1 Unknown [facility] (16 sources) Triiodobenzoic Acids Allergy to substance 2 Shortness of breath [facility] (16 sources) Adhesive Tape; Translations: [adhesive tape] Allergy to substance 3 NEEDS FOLLOW-UP, red, itchy [facility] Comment on above: plastic tape- Red, b louchy, itch (5 sources) Adhesive Tape-Silicones; Translations: [ADHESIVE TAPE-SILICONES] Drug Allergy 5 Unknown [facility] (1 source) Adhesive Tape Allergy to substance 5 Other: See Comments [facility] (1 source) atorvastatin Drug Allergy 5 [facility] (1 source) Pravastatin Drug Allergy 5 [facility] (1 source) Iodinated Contrast Media Drug allergy (disorder) 5 [facility] Medications Current Medications Medication Drug Class(es) Dates Sig (Normalized) Sig (Original) acetaminophen 325 mg oral tablet (20 sources) Start: 03-17-2024 take 1 tablet by mouth every four hours as needed 650 mg, oral, Every 4 hours PRN, pain mild (1-3), first line, Starting on Sat03/17/24 at 1343, Recovery (only), When able to take oral medications., If ordered PRN for pain, nurse is permitted to administer this medication for higher pain scores based on patient preference? Yes Start: 05-16-2017 End: 12-18-2017 take 2 tablets by mouth every eight hours Acetaminophen 500 MG tablet Discontinued 1000 mg PO EVERY 8 HOURS August 31, 2017 9:24am December 18, 2017 3:57pm pain Start: 05-16-2017 End: 12-18-2017 take 1000 mg by mouth every eight hours Acetaminophen Discontinued 1000 MG PO EVERY 8 HOURS August 31, 2017 9:24am December 18, 2017 3:57pm take 2 tablets by [facility] every six hours as needed acetaminophen (TYLENOL EXTRA STRENGTH) 500 mg tablet Take 1,000 mg by mouth every 6 hours as needed for Pain. 0 Active ascorbic acid 100 mg/ml oral solution (3 sources) Vitamin C ascorbic acid (Vitamin C) 500 mg/5 mL liquid Take by mouth once daily. Active aspirin 81 mg chewable tablet (20 sources) Platelet Aggregation Inhibitor, Nonsteroidal Anti-inflammatory Drug Start: 01-05-2025 take 1 tablet by mouth twice daily Aspirin 81 MG tablet,chewable Active 81 mg PO TWICE A DAY 60 0 January 05, 2025 12:57pm health maintenance Start: 12-13-2017 End: 01-05-2025 take 1 tablet by mouth once daily Aspirin 81 MG tablet,chewable Discontinued 81 mg PO DAILY December 13, 2017 12:00am January 05, 2025 12:57pm health maintenance Start: 08-29-2017 End: 08-31-2017 take 1 tablet by mouth twice daily at mealtime Aspirin 325 MG tablet Discontinued 325 mg PO TWICE DAILY WITH MEALS 30 0 August 29, 2017 1:00am August 31, 2017 9:24am Start: 05-12-2017 End: 08-29-2017 take 1 tablet by mouth once daily Aspirin [address] Discontinued 81 mg PO DAILY May 12, 2017 12:00am August 29, 2017 9:50am Start: 09-05-2016 End: 04-10-2017 take 1 tablet by mouth once daily Aspirin 81 MG Tab.Chew Discontinued 81 mg PO DAILY September 05, 2016 1:00am April 10, 2017 2:53pm Start: 10-08-2013 End: 10-21-2013 take 1 tablet by mouth once daily Aspirin 325 MG tablet Discontinued 325 mg PO DAILY@0800 October 08, 2013 1:00am October 21, 2013 3:02pm calcium ascorbate 500 mg oral tablet (12 sources) Start: 06-18-2023 take 1 tablet by mouth once daily Ascorbate Calcium (Vitamin C) 500 mg tablet Active 500 mg PO DAILY June 18, 2023 12:00am calcium chloride 0.0014 meq/ml / potassium chloride 0.004 meq/ml / sodium chloride 0.103 meq/ml / sodium lactate 0.028 meq/ml injectable solution (1 source) Start: 03-17-2024 take 50 mL intravenously every hour 50 mL/hr, intravenous, Continuous, Starting on Sat03/17/24 at 1400, Recovery (only) dicyclomine hydrochloride 10 mg oral capsule (20 sources) Anticholinergic Start: 05-15-2022 take 1 capsule by mouth twice daily Dicyclomine 10 mg capsule Active 10 mg PO TWICE A DAY May 15, 2022 12:00am famotidine 40 mg oral tablet (20 sources) Histamine-2 Receptor Antagonist Start: 04-08-2024 take 2 tablets by mouth once daily Famotidine (Pepcid) 40 mg tablet Active 80 mg PO DAILY April 08, 2024 1:37pm Start: 12-10-2023 take 1 tablet by jeannie twice daily famotidine (Pepcid) 40 mg tablet Take 1 tablet (40 mg) by mouth 2 times a day. 12/10/2023 Active Start: 01-18-2021 End: 04-08-2024 take 1 tablet by mouth once daily Famotidine (Pepcid) 40 mg tablet Discontinued 40 mg PO DAILY 90 January 02, 2022 5:06pm April 08, 2024 1:38pm gabapentin 100 mg oral capsule (5 sources) Anti-epileptic Agent Start: 01-05-2025 take 1 capsule by mouth three times daily at mealtime Gabapentin 100 mg Capsule Active 100 mg PO 3 TIMES DAILY WITH MEALS 42 14 0 January 05, 2025 12:00am glucose 0.4 mg/mg oral gel (1 source) Start: 12-12-2015 dextrose (INSTA-GLUCOSE) 40 % gel Indications: Diabetes mellitus, type II, insulin dependent (HCC) Take 15 g by mouth as needed. USE WHEN BLOOD GLUCOSE IS LESS THAN 70 MG/DL (60 MG/DL IF ) AND PATIENT DEMONSTRATES DIMINISHED LEVEL OF CONSCIOUSNESS BUT IS ABLE TO SWALLOW WITHOUT RISK OF ASPIRATION 5 Each 0 12/12/2015 Active 1 ml HYDROmorphone hydrochloride 1 mg/ml cartridge (2 sources) Opioid Agonist Start: 03-17-2024 0.5 mg, intravenous, Every 5 min PRN, pain severe (7-10), first line, Starting on Sat03/17/24 at 1343, For 2 doses, Recovery (only), Max total of 4 mg regardless of dose. Start: 03-17-2024 0.2 mg, intrav enous, Every 5 min PRN, pain moderate (4-6), first line, Starting on Sat03/17/24 at 1343, For 5 doses, Recovery (only), Max total of 4 mg regardless of dose. 3 ml insulin glargine 100 unt/ml pen injector (10 sources) Insulin Analog Start: 04-08-2024 Insulin Glargi ne (Lantus Solostar U-100 Insulin) 100 unit/mL (3 mL) insulin pen Active 10 U SC EVERY EVENING April 08, 2024 12:00am 10 units at bedtime 45 units in the am Start: 10-14-2023 inject 30 [IU] by figueroa bcutaneous injection once daily in the morning, then inject 50 [IU] by subcutaneous injection once daily in the evening Lantus Solostar U-100 Insulin 100 unit/mL (3 mL) pen inject 30 units subcutaneously every morning and 50 units every evening 10/14/2023 Active 3 ml liraglutide 6 mg/ml pen injector (1 source) GLP-1 Receptor Agonist Start: 07-04-2015 VICTOZA 3-GRAHAM 0.6 mg/0.1 mL (18 mg/3 mL) pnij Inject 18 mg subcutaneously daily at bedtime. 0 07/04/2015 Active mecobalamin 1 mg chewable tablet (12 sources) Start: 06-18-2023 take 1 tablet by mouth once daily Mecobalamin (Vitamin B12) 1,000 mcg tablet,chewable Active 1000 ug PO DAILY June 18, 2023 12:00am 24 hr metFORMIN hydrochloride 500 mg extended release oral tablet (20 sources) Biguanide Start: 08-28-2023 take 2 tablets by mouth twice daily metFORMIN XR 500 mg 24 hr tablet Take 2 tablets (1,000 mg) by mouth 2 times a day. 08/28/2023 Active Start: 06-18-2023 take 1 tablet by jeannie twice daily Metformin 500 mg tablet extended release 24 hr Active 500 mg PO TWICE A DAY June 18, 2023 11:37am diabetes Start: 01-26-2020 End: 06-18-2023 take 2 tablets by mouth every twenty-four hours in the evening Metformin 500 mg tablet extended release 24 hr Discontinued 1000 mg PO WITH DINNER January 26, 2020 1:19pm June 18, 2023 11:41am diabetes one tablet in th AM and two tablets in the evening Start: 10-08-2013 End: 01-26-2020 Metformin 500 MG tablet Disc ontinued 1000 mg PO WITH DINNER 0 0 September 07, 2019 3:59pm January 26, 2020 1:21pm diabetes Hold, then resume 09/09/19 Start: 10-08-2013 End: 06-18-2023 take 1 tablet by mouth once daily at dinner metFORMIN ER (GLUCOPHAGE XR) 500 mg 24 hr tablet Take 1,000 mg by mouth daily with dinner. 0 07/19/2015 Active methocarbamol 500 mg oral tablet (1 source) Muscle Relaxant Start: 02-21-2016 take 1 tablet by mouth every six hours as needed methocarbamol (ROBAXIN) 500 mg tablet Take 1 tablet by mouth four times daily as needed (Muscle spasms). 60 tablet 0 02/21/2016 Active OneTouch Ultra2 Meter misc (3 sources) Start: 04-04-2023 OneTouch Ultra 2 Meter misc use to TEST BLOOD SUGAR daily 04/04/2023 Active oxyCODONE hydrochloride 5 mg oral tablet (20 sources) Opioid Agonist Start: 03-17-2024 take 1 tablet by mouth every four hours as needed 5 mg, oral, Every 4 hours PRN, pain moderate (4-6), second line, Starting on Sat03/17/24 at 1343, Recovery (only), When able to take oral medications., If ordered PRN for pain, nurse is permitted to administer this medication for higher pain scores based on patient preference? Yes Start: 08-29-2017 End: 12-18-2017 take 5-10 mg by mouth every four hours as needed for pain Oxycodone 5 MG tablet Discontinued 5 - 10 mg PO EVERY 4 HOURS NEEDED as needed for Pain 80 0 August 29, 2017 1:00am December 18, 2017 3:56pm PARoxetine hydrochloride 30 mg oral tablet (20 sources) Serotonin Reuptake Inhibitor Start: 01-26-2020 take 1 tablet by mouth once daily Paroxetine Hcl 30 mg tablet Active 30 mg PO DAILY January 26, 2020 12:00am Start: 05-09-2015 take 1 tablet by jeannie th once daily PARoxetine (PAXIL) 20 mg tablet Take 1 tablet by mouth once daily. 0 05/09/2015 Active Start: 10-08-2013 End: 01-26-2020 Paroxetine Hcl 20 MG tablet Discontinued 30 mg PO DAILY October 08, 2013 1:00am January 26, 2020 1:20pm depression Start: 10-08-2013 End: 01-26-2020 take 30 mg by mouth once daily Paroxetine Hcl Disconti nued 30 MG PO DAILY October 08, 2013 1:00am January 26, 2020 1:20pm polyethylene glycol 3350 27452 mg powder for oral solution (1 source) Osmotic Laxative Start: 12-12-2015 take 1 dose by mouth once daily as needed for constipation polyethylene glycol 3350 (MIRALAX, GLYCOLAX) 17 gram packet Take 1 Packet by mouth once daily as needed (Constipation). 15 Packet 0 12/12/2015 Active promethazine (Phenergan) 6.25 mg in sodium chloride 0.9% 50 mL IV (1 source) Start: 03-17-2024 6.25 mg, intravenous, Administer over 15 Minutes, Once as needed, Nausea/vomiting, second line, Starting on Sat03/17/24 at 1343, For 1 dose, Recovery (only) 12 hr ranolazine 1000 mg extended release oral tablet (1 source) Anti-anginal Start: 06-20-2015 take 1 tablet by mouth twice daily RANEXA 1,000 mg Tb12 Take 1 tablet by mouth twice daily. 0 06/20/2015 Active rosuvastatin calcium 5 mg oral tablet (20 sources) HMG-CoA Reductase Inhibitor Start: 12-13-2017 take 1 tablet by mouth at bedtime Rosuvastatin 5 MG tablet Active 5 mg PO AT BEDTIME December 13, 2017 12:00am cholesterol Start: 06-21-2015 End: 05-16-2017 take 1 tablet by mouth at bedtime Rosuvastatin (Crestor) 5 MG tablet Discontinued 5 mg PO AT BEDTIME April 08, 2017 12:00am May 16, 2017 1:40pm vitamin b12 0.25 mg oral tablet (3 sources) Vitamin B12 take 1 tablet by mouth once daily cyanocobalamin (Vitamin B-12) 250 mcg tablet Take 1 tablet (250 mcg) by mouth once daily. Active zinc acetate 50 mg oral capsule (12 sources) Start: 06-18-2023 take 1 capsule by mouth once daily Zinc Acetate 50 mg (zinc) capsule Active 50 mg PO DAILY June 18, 2023 12:00am Completed/Discontinued Medications Medication Drug Class(es) Dates Sig (Normalized) Sig (Original) acetaminophen 325 mg / oxyCODONE hydrochloride 5 mg oral tablet (20 sources) Opioid Agonist Start: 05-12-2017 End: 05-16-2017 Oxycodone-Acetamino phen 1 TABLET tablet Discontinued 1 {tbl} PO EVERY 4 HOURS NEEDED as needed for Pain May 12, 2017 12:00am May 16, 2017 1:40pm Start: 05-12-2017 End: 05-16-2017 take 1 tablet by mouth every four hours as needed Oxycodone-Acetaminophen Discontinued 1 TABLET PO EVERY 4 HOURS NEEDED May 12, 2017 12:00am May 16, 2017 1:40pm Start: 02-26-2017 End: 04-10-2017 Oxycodone-Acetaminophen 1 TA BLET tablet Discontinued 1 {tbl} PO EVERY 4 HOURS NEEDED as needed for Pain February 26, 2017 12:00am April 10, 2017 2:54pm Start: 02-26-2017 End: 04-10-2017 take 1 tablet by mouth every four hours as needed Oxycodone-Acetaminophen Discontinued 1 TABLET PO EVERY 4 HOURS NEEDED February 26, 2017 12:00am April 10, 2017 2:54pm allopurinol 300 mg oral tablet (7 sources) Xanthine Oxidase Inhibitor Start: 04-08-2024 End: 08-12-2024 take 1 tablet by mouth once daily Allopurinol 300 mg tablet Discontinued 300 mg PO DAILY April 08, 2024 12:00am August 12, 2024 2:00pm azelastine hydrochloride 0.137 mg/actuat metered dose nasal spray (10 sources) Histamine-1 Receptor Antagonist Start: 11-21-2023 End: 04-21-2024 Azelastine 137 mcg (0.1 %) aerosol,spray Discontinued 2 NMA INTRANASAL TWICE A DAY November 21, 2023 1:00am April 21, 2024 8:41am administer into each nostril Start: 11-21-2023 take 1 spray(s) nasa l route twice daily Azelastine Active 2 SPRAY INTRANASAL TWICE A DAY November 21, 2023 1:00am administer into each nostril benazepril hydrochloride 20 mg oral tablet (20 sources) Angiotensin Converting Enzyme Inhibitor Start: 12-13-2017 End: 01-05-2025 take 1 tablet by mouth once daily Benazepril 20 MG tablet Discontinued 20 mg PO DAILY December 13, 2017 12:00am January 05, 2025 12:56pm blood pressure Start: 10-08-2013 End: 05-16-2017 take 1 tablet by mouth once daily Benazepril Hcl (Lotensin) 20 MG tablet Discontinued 20 mg PO DAILY October 08, 2013 1:00am May 16, 2017 1:33pm celecoxib 200 mg oral capsule (20 sources) Nonsteroidal Anti-inflammatory Drug Start: 02-08-2017 End: 04-10-2017 take 1 capsule by mouth once daily Celecoxib 200 MG capsule Discontinued 200 mg PO DAILY April 08, 2017 12:00am April 10, 2017 2:53pm cholecalciferol 0.025 mg oral capsule (12 sources) Vitamin D Start: 06-18-2023 End: 12-30-2024 take 1 capsule by mouth once daily Cholecalciferol (Vitamin D3) 25 mcg (1,000 unit) capsule Discontinued 25 ug PO DAILY June 18, 2023 12:00am December 30, 2024 12:20am clopidogrel 75 mg oral tablet (20 sources) P2Y12 Platelet Inhibitor Start: 01-18-2021 End: 01-02-2022 take 1 tablet by mouth once daily Clopidogrel (Plavix) 75 mg tablet Discontinued 75 mg PO daily 3 January 18, 2021 9:34am January 02, 2022 5:06pm docusate sodium 50 mg / sennosides, assisted 8.6 mg oral tablet (20 sources) Start: 08-29-2017 End: 09-10-2017 take 1 tablet by mouth twice daily as needed Sennosides-Docusate Sodium (Stool Softener-Stimulant Laxat) 1 TABLET tablet Discontinued 2 {tbl} PO TWICE A DAY August 31, 2017 9:24am September 10, 2017 9:41am constipation Take until first bowel movement, then as needed doxycycline monohydrate 100 mg oral capsule (20 sources) Tetracycline-class Drug Start: 05-16-2017 End: 08-31-2017 take 1 capsule by mouth twice daily Doxycycline Monohydrate 100 MG capsule Discontinued 100 mg PO TWICE A DAY 10 August 29, 2017 9:51am August 31, 2017 9:24am 3 ml insulin aspart, human 100 unt/ml pen injector (20 sources) Insulin Analog Start: 08-31-2017 End: 05-19-2019 Insulin Aspart U-100 Discontinued 15 UNITS SC WITH DINNER August 31, 2017 9:24am May 19, 2019 8:53am Start: 05-16-2017 End: 05-19-2019 Insulin Aspart U-100 100 UNI TS/ML insulin pen Discontinued 15 U SC WITH DINNER August 31, 2017 9:24am May 19, 2019 8:53am diabetes Start: 09-05-2016 End: 05-16-2017 Insulin Aspart U-100 (Novolo g Flexpen U-100 Insulin) 100 UNITS/ML Flexpen Discontinued 10 - 15 U SC WITH DINNER September 05, 2016 1:00am May 16, 2017 1:37pm Start: 12-12-2015 inject 100 [IU] by s ubcutaneous injection once daily at dinner insulin aspart (NOVOLOG FLEXPEN) 100 unit/mL inpn Inject 5-10 Units subcutaneously daily with dinner. 0 12/12/2015 Active 3 ml insulin detemir 100 unt/ml pen injector (20 sources) Insulin Analog Start: 05-19-2019 End: 04-08-2024 Insulin Detemir U-100 100 unit/mL (3 mL) insulin pen Discontinued 48 U SC AT BEDTIME May 19, 2019 8:53am April 08, 2024 1:37pm diabetes Start: 08-31-2017 End: 04-08-2024 Insulin Detemir U-100 100 un it/mL (3 mL) insulin pen Discontinued 40 U SC WITH BREAKFAST May 19, 2019 8:52am April 08, 2024 1:38pm diabetes Start: 08-31-2017 End: 05-19-2019 Insulin Detemir U-100 100 UN ITS/ML insulin pen Discontinued 40 U SC AT BEDTIME August 31, 2017 9:24am May 19, 2019 8:53am diabetes Start: 05-16-2017 End: 08-31-2017 Insulin Detemir U-100 (Levem ir Flextouch U100 Insulin) 100 UNITS/ML Flexpen Discontinued 35 U SC AT BEDTIME 0 0 May 16, 2017 1:40pm August 31, 2017 9:24am Start: 05-16-2017 End: 08-31-2017 Insulin Detemir U-100 (Levem ir Flextouch U-100 Insuln) 100 UNITS/ML Flexpen Discontinued 35 UNITS SC AT BEDTIME 0 May 16, 2017 1:40pm August 31, 2017 9:24am Start: 06-01-2015 inject 20-35 [IU] by subcutaneous injection twice daily, then inject 20 mg by subcutaneous injection once daily in the morning, then inject 35 mg by subcutaneous injection once daily in the evening LEVEMIR FLEXTOUCH 100 unit/mL (3 mL) inpn injection Inject 20-35 Units subcutaneously twice daily. 20mg every am and 35mg every pm 0 06/01/2015 Active Start: 10-08-2013 End: 05-16-2017 Insulin Detemir U-100 (Levem ir Flextouch U100 Insulin) 100 UNITS/ML Flexpen Discontinued 40 U SC AT BEDTIME October 08, 2013 1:00am May 16, 2017 1:41pm Start: 10-08-2013 End: 05-19-2019 Insulin Detemir U-100 100 UN ITS/ML insulin pen Discontinued 30 U SC WITH BREAKFAST October 08, 2013 1:00am May 19, 2019 8:53am diabetes Start: 10-08-2013 End: 05-19-2019 Insulin Detemir U-100 Discon tinued 30 UNITS SC WITH BREAKFAST October 08, 2013 1:00am May 19, 2019 8:53am Start: 10-08-2013 End: 05-16-2017 Insulin Detemir U-100 (Levem ir Flextouch U-100 Insuln) 100 UNITS/ML Flexpen Discontinued 40 UNITS SC AT BEDTIME October 08, 2013 1:00am May 16, 2017 1:41pm iohexol (OMNIPaque) 350 mg iodine/mL solution 70 mL (1 source) Start: 03-05-2024 End: 03-05-2024 70 mL, intravenous, Once in imaging, Starting on Andra 03/05/24 at 1112, For 1 dose isosorbide dinitrate 10 mg oral tablet (20 sources) Nitrate Vasodilator Start: 09-05-2016 End: 05-14-2024 take 1 tablet by mouth three times daily Isosorbide Dinitrate 10 mg tablet Discontinued 0 .ROUTE .COMPLEX 270 3 March 13, 2023 12:20pm May 14, 2024 10:07am take 1 tablet by mouth three times a day for blood pressure labetalol hydrochloride 5 mg/ml injectable solution (2 sources) beta-Adrenergic Colt Start: 03-17-2024 End: 03-17-2024 20 mg, intravenous, Administer over 1 Minutes, Once as needed, SBP > 175, Starting on Sat03/17/24 at 1500, For 1 dose, Recovery (only), Give at rate of 10 mg/min. Start: 03-17-2024 End: 03-17-2024 10 mg, intravenous, Administ er over 1 Minutes, Once as needed, systolic blood pressure greater than 180 mmHg, dystolic blood pressure greater than 100 mmHg and heart rate greater than 60 BPM, Starting on Sat03/17/24 at 1433, For 1 dose, Recovery (only), Give at rate of 10 mg/min. lidocaine 25 mg/ml / prilocaine 25 mg/ml topical cream (7 sources) Antiarrhythmic, Amide Local Anesthetic Start: 05-05-2024 End: 08-12-2024 Lidocaine-Prilocaine 2.5-2.5 % cream Discontinued 1 NMA TOPICAL ONCE 25 May 05, 2024 12:00am August 12, 2024 1:59pm meclizine hydrochloride 25 mg chewable tablet (19 sources) Antiemetic Start: 10-10-2020 End: 01-18-2021 take 1 tablet by mouth four times daily as needed Meclizine 25 MG tablet,chewable Discontinued 25 mg PO 4 TIMES DAILY NEEDED as needed for Vertigo 20 0 October 10, 2020 5:40pm January 18, 2021 8:58am PRN for Vertigo metoprolol tartrate 25 mg oral tablet (20 sources) beta-Adrenergic Colt Start: 03-09-2021 End: 05-18-2024 take 1 tablet by mouth twice daily Metoprolol Tartrate 25 mg tablet Discontinued 0 .ROUTE .COMPLEX 180 3 May 29, 2023 12:02pm May 18, 2024 10:04am take 1 tablet by mouth twice a day for blood pressure Start: 10-09-2020 End: 03-09-2021 take 2 tablets by mouth twice daily Metoprolol Tartrate 25 MG tablet Discontinued 50 mg PO TWICE A DAY October 09, 2020 3:58am March 09, 2021 11:37am blood pressure Start: 10-09-2020 End: 05-29-2023 take 1 tablet by mouth twice daily Metoprolol Tartrate Discontinued 0 .ROUTE .COMPLEX 180 March 13, 2022 1:07pm May 15, 2022 10:14am take 1 tablet by mouth twice a day for blood pressure Start: 06-12-2019 End: 10-09-2020 take 1 tablet by mouth twice daily Metoprolol Tartrate 25 mg tablet Discontinued 25 mg PO TWICE A DAY 180 3 March 17, 2020 3:11pm October 09, 2020 3:58am blood pressure Start: 06-02-2019 End: 06-12-2019 Metoprolol Tartrate 50 mg ta blet Discontinued 25 mg PO TWICE A DAY 30 June 02, 2019 1:05pm June 12, 2019 7:37am Start: 06-02-2019 End: 06-12-2019 take 25 mg by mouth twice daily Metoprolol Tartrate Di scontinued 25 MG PO TWICE A DAY June 02, 2019 1:05pm June 12, 2019 7:37am Start: 05-27-2019 End: 06-02-2019 take 1 tablet by mouth twice daily Metoprolol Tartrate 50 MG tablet Discontinued 50 mg PO TWICE A DAY 60 3 May 27, 2019 12:00am June 02, 2019 1:07pm omeprazole 20 mg delayed release oral capsule (20 sources) Proton Pump Inhibitor Start: 12-13-2017 End: 01-18-2021 take 1 capsule by mouth once daily Omeprazole 20 capsule,delayed release(DR/EC) Discontinued 20 mg PO DAILY December 13, 2017 12:00am January 18, 2021 9:28am stomach Start: 10-08-2013 End: 09-10-2017 take 1 capsule by mouth once daily Omeprazole 20 MG capsule Discontinued 20 mg PO DAILY October 08, 2013 1:00am September 10, 2017 9:43am 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 12 hr orphenadrine citrate 100 mg extended release oral tablet (19 sources) Muscle Relaxant Start: 02-26-2017 End: 05-12-2017 take 1 tablet by mouth twice daily as needed for muscle spasms Orphenadrine Citrate 100 MG tablet Discontinued 100 mg PO TWICE A DAY as needed for Muscle Spasm February 26, 2017 10:32pm May 12, 2017 2:36pm 24 hr oxybutynin chloride 10 mg extended release oral tablet (19 sources) Cholinergic Muscarinic Antagonist Start: 12-18-2017 End: 08-05-2018 take 1 tablet by mouth once daily Oxybutynin Chloride 10 mg tablet extended release 24 hr Discontinued 10 mg PO daily December 18, 2017 12:00am August 05, 2018 3:09pm oxygen (O2) therapy (1 source) Start: 03-17-2024 End: 03-17-2024 take 1 dose by inhalation once inhalation, Once, On Sat03/17/24 at 1400, For 1 dose, Recovery (only), Device: Nasal Cannula, Rate in liters per minute: Other, Custom Value: 1-6 LPM, Keep O2 Sat Above: 92% predniSONE 20 mg oral tablet (10 sources) Start: 11-21-2023 End: 04-08-2024 take 1 tablet by mouth once daily Prednisone 20 mg tablet Discontinued 20 mg PO DAILY 5 5 0 November 21, 2023 1:00am April 08, 2024 1:37pm ticagrelor 90 mg oral tablet (20 sources) Start: 05-27-2019 End: 01-18-2021 take 1 tablet by mouth twice daily Ticagrelor 90 mg tablet Discontinued 90 mg PO TWICE A DAY 180 3 March 17, 2020 3:11pm January 18, 2021 9:25am antiplatelet traMADol hydrochloride 50 mg oral tablet (8 sources) Opioid Agonist Start: 04-24-2024 End: 12-30-2024 take 1 tablet by mouth every six hours as needed for pain Tramadol 50 mg tablet Discontinued 50 mg PO EVERY 6 HOURS as needed for pain 5 3 0 April 24, 2024 12:00am December 30, 2024 12:57am Postoperative pain Other acute postprocedural pain Start: 02-20-2017 take 1 tablet by jeannie th every six hours as needed traMADol (ULTRAM) 50 mg tablet Take 1 tablet by mouth every 6 hours as needed. 30 tablet 0 02/20/2017 Active Problems Active Problems Problem Classification Problem Date Documented Da te Episodic/Chronic Administrative/social admission (14 sources) Patient encounter status; Translations: [Counseling, unspecified] 04-13-2024 Episodic Chronic ulcer of skin (16 sources) Non-pressure chronic ulcer of other part of left foot with fat layer exposed; Translations: [Non-pressure chronic ulcer of other part of left foot with fat layer exposed] 11-20-2022 Chronic Conditions associated with dizziness or vertigo (19 sources) Vertigo; Translations: [Dizziness and giddiness] 05-24-2021 Episodic Coronary atherosclerosis and other heart disease (20 sources) Coronary atherosclerosis; Translations: [Atherosclerotic heart disease of [place] coronary artery without angina pectoris] Onset: 03-17-2024 10-09-2020 Chronic Coronary atherosclerosis and other heart disease (5 sources) Presence of coronary angioplasty implant and graft; Translations: [Percutaneous transluminal coronary angioplasty status] Onset: 05-26-2019 Episodic Deficiency and other anemia (7 sources) Iron deficiency anemia; Translations: [Iron deficiency anemia, unspecified] 05-05-2024 Episodic Deficiency and other anemia (2 sources) Iron deficiency anemia, unspecified; Translations: [Iron deficiency anemia, unspecified] Onset: 07-21-2024 Episodic Diabetes mellitus without complication (13 sources) Diabetes mellitus; Translations: [Insulin dependent diabetes mellitus] Onset: 12-09-2015 11-21-2023 Chronic Disorders of lipid metabolism (20 sources) Hyperlipidemia; Translations: [Hyperlipidemia, unspecified] Onset: 03-17-2024 Chronic Essential hypertension (20 sources) Essential hypertension; Translations: [Essential (primary) hypertension] Onset: 03-17-2024 Chronic Fluid and electrolyte disorders (20 sources) Dehydration; Translations: [Dehydration] 05-24-2021 Episodic Genitourinary symptoms and ill-defined conditions (2 sources) Dysuria; Translations: [Unspecified abnormal findings in urine] Onset: 07-30-2024 Episodic Maintenance chemotherapy; radiotherapy (14 sources) H/O: malignant neoplasm; Translations: [Encounter for antineoplastic immunotherapy] 05-05-2024 Chronic Comment on above: Counts and chemistry reviewed, OK for therapy. Malaise and fatigue (20 sources) Asthenia; Translations: [Weakness] 05-24-2021 Episodic Mood disorders (2 sources) Depressive disorder; Translations: [Depression] Onset: 03-17-2024 03-17-2024 Chronic Non-Hodgkin`s lymphoma (20 sources) Follicular lymphoma grade IIIa, unspecified site; Translations: [Follicular lymphoma grade IIIa] Onset: 03-02-2025 10-13-2024 Chronic Comment on above: Stage III, both side s of the diaphragm, large nasopharyngeal mass.Started treatment with Bendamustine and Rituxan on 04/15/2024 and 05/26/2024.Has had resolution of throat mass and neck nodes.PET/CT on 05/19/2024 reviewed, no hypermetabolic activities-complete response.She is on observation, comes for follow up.No evidence of disease clinically. Labs reviewed, WNL Stage III, both side s of the diaphragm, large nasopharyngeal mass.Started treatment with Bendamustine and Rituxan on 04/15/2024 and 05/26/2024.Has had resolution of throat mass and neck nodes.PET/CT on 05/19/2024 reviewed, no hypermetabolic activities-complete response.She is on observation. Comes for follow up.CT 02/24/2025 reviewed, no evidence of adenopathy, abnormal lower part of sternum.No evidence of Progressive disease. Nonspecific chest pain (19 sources) Chest pain; Translations: [Chest pain, unspecified] 05-06-2019 Episodic Other aftercare (7 sources) Follow-up status; Translations: [Encounter for follow-up examination after completed treatment for conditions other than malignant neoplasm] 04-23-2024 Episodic Comment on above: Manjit counts are OK. Other aftercare (1 source) Other halfway (current) drug therapy; Translations: [Other middle or intermediate school principal (current) drug therapy] Onset: 06-14-2025 Episodic Other connective tissue disease (1 source) Presence of left artificial hip joint; Translations: [Presence of left artificial hip joint] Onset: 01-08-2025 Chronic Other gastrointestinal disorders (7 sources) Constipation; Translations: [Constipation, unspecified] 05-05-2024 Episodic Other nervous system disorders (20 sources) Unable to walk; Translations: [Difficulty in walking, not elsewhere classified] 05-06-2019 Chronic Other nervous system disorders (1 source) Other disorders of peripheral nervous system; Translations: [Other disorders of peripheral nervous system] Onset: 12-22-2024 Chronic Other nervous system disorders (10 sources) H/O: Dunn's palsy; Translations: [Personal history of other diseases of the nervous system and sense organs] 11-21-2023 Episodic Other non-traumatic joint disorders (11 sources) Hip pain; Translations: [Pain in left hip] 12-30-2024 Episodic Other nutritional; endocrine; and metabolic disorders (17 sources) Obesity; Translations: [Obesity, unspecified] 05-14-2022 Chronic Other nutritional; endocrine; and metabolic disorders (1 source) Body mass index 40+ - severely obese; Translations: [Morbid (severe) obesity due to excess calories] Onset: 02-08-2017 02-08-2017 Chronic Other upper respiratory disease (4 sources) Mass of nasopharynx; Translations: [Other diseases of pharynx] Onset: 03-03-2024 02-27-2024 Episodic Other upper respiratory disease (4 sources) Other diseases of pharynx; Translations: [Other diseases of pharynx] Onset: 02-27-2024 Episodic Otitis media and related conditions (10 sources) Dysfunction of eustachian tube; Translations: [Unspecified Eustachian tube disorder, right ear] 11-21-2023 Episodic Kimberlee-; endo-; and myocarditis; cardiomyopathy (except that caused by tuberculosis or sexually transmitted disease) (19 sources) Cardiomyopathy; Translations: [Other cardiomyopathies] 05-14-2022 Chronic Residual codes; unclassified (2 sources) Encounter for procedure for purposes other than remedying health state, unspecified; Translations: [Encounter for procedure for purposes other than remedying health state, unspecified] Onset: 03-10-2024 Episodic Spondylosis; intervertebral disc disorders; other back problems (1 source) Disorder of joint of spine; Translations: [Other spondylosis with radiculopathy, lumbar region] Onset: 12-09-2015 12-09-2015 Chronic Spondylosis; intervertebral disc disorders; other back problems (5 sources) 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; Translations: [Osseous stenosis of neural canal of lumbar region] Onset: 08-23-2015 Resolved: 08-23-2015 08-23-2015 Episodic Past or Other Problems Problem Classification Problem Date Documented Date Episodic/Chronic Acquired foot deformities (2 sources) Foot drop, left foot; Translations: [Foot drop, left foot] Onset: 12-22-2024 Episodic Complication of device; implant or graft (10 sources) Pain due to hip joint prosthesis; Translations: [Pain due to internal orthopedic prosthetic devices, implants and grafts, initial encounter] Onset: 01-08-2025 12-31-2024 Episodic Other non-traumatic joint disorders (2 sources) Pain in left hip; Translations: [Pain in left hip] Onset: 01-08-2025 Episodic Other screening for suspected conditions (not mental disorders or infectious disease) (20 sources) Thallium stress test abnormal; Translations: [Abnormal result of other cardiovascular function study] Onset: 03-17-2025 05-24-2021 Episodic Unclassified (3 sources) Onset: 02-27-2024 02-27-2024 Results Test Name Value Interpretation Reference Range Facility Orthopedic Visit Reporton Orthopedic Visit Report [facility] [address] [place] [address] [address] [place] [address] OFFICE VISIT Date of Service: 06/21/25 MR#: [id number] Acct: [id number] Name: LETICIA HERRERA Rep #: [id number] : 1945 Provider: AALIYAH Lynn Age/Sex: 79/F Location[place] [facility] [place] Status: Signed Intake Vital Signs 02/25/25 15:55 06/21/25 13:00 Height 5 ft 3 in 5 ft 2 in Weight: 216 lb BMI 39.4 Intake Visit Reasons: LUMBAR SPINE Chief Complaint: lumbar spine Accompanied by: Self Is patient in pain?: Yes (lumbar spine) Pain scale (1-10): 1 Allergies adhesive tape Allergy (Verified 06/21/25 13:02) red, itchy atorvastatin (From Lipitor) Allergy (Verified 06/21/25 13:02) myalgias Iodinated Contrast Media (CT) Allergy (Verified 06/21/25 13:02) Shortness of breath Penicillins Allergy (Verified 06/21/25 13:02) Rash pravastatin Allergy (Verified 06/21/25 13:02) myalgias Medications ???Medication ???Instructions ???Recorded ???Confirmed ???Type rosuvastatin 5 mg tablet 5 mg PO QHS cholesterol 12/13/17 0 06/21/25 History acetaminophen 500 mg tablet 1,000 mg PO Q8 PRN pain 12/18/17 0 06/21/25 History paroxetine HCl 30 mg tablet 30 mg PO DAILY 01/26/20 06/21/25 H istory clopidogrel 75 mg tablet (Plavix) 75 mg PO QDAY #90 tabs 01/02/22 0 06/21/25 Rx dicyclomine 10 mg capsule 10 mg PO BID 05/15/22 06/21/25 His tory ascorbate calcium (vitamin C) 500 500 mg PO DAILY 06/18/23 06/21/25 History mg tablet mecobalamin (vitamin B12) 1,000 1,000 mcg PO DAILY 06/18/23 History mcg chewable tablet metformin 500 mg tablet,extended 500 mg PO BID diabetes 06/18/23 History release 24 hr famotidine 40 mg tablet (Pepcid) 40 mg PO DAILY 04/08/24 06/21/25 H istory insulin glargine 100 unit/mL (3 10 unit subcut QPM 04/08/24 History mL) subcutaneous pen (Lantus Solostar U-100 Insulin) isosorbide dinitrate 10 mg tablet See Rx Instructions .Route 06/21/25 Rx .COMPLEX #270 tabs metoprolol tartrate 25 mg tablet See Rx Instructions .Route 4 06/21/25 Rx .COMPLEX #180 TABLETS aspirin 81 mg chewable tablet 81 mg PO BID health maintenance 06/21/25 Rx #60 tabs gabapentin 100 mg capsule 100 mg PO TIDCM 14 days #42 caps 0 01/05/25 06/21/25 Rx cholecalciferol (vitamin D3) 10 10 mcg PO QDAY 06/21/25 06/21/25 H istory mcg (400 unit) capsule Have you fallen in the past year?: Yes PFSH Medical History Foot drop Loss of hearing Wears hearing aid Wears glasses Wears contact lenses Wears dentures Cancer History of steroid therapy Arthritis High cholesterol Non-smoker History of stress test History of echocardiogram Cardiology follow-up encounter PONV (postoperative nausea and vomiting) Encounter for education Depression Upper GI bleed Atherosclerosis of coronary artery of [place] heart without angina pectoris Obesity Essential (primary) hypertension GERD (gastroesophageal reflux disease) Type 2 diabetes mellitus Hyperlipidemia Surgical History History of cardiac catheterization History of coronary artery stent placement (05/26/19) History of left heart catheterization (12/07/11) Hx of appendectomy History of laminectomy History of bilateral hip replacements History of total bilateral knee replacement History of hysterectomy H/O total hip arthroplasty Family History Father COPD (chronic obstructive pulmonary disease) Myocardial infarction Mother Diabetes CAD (coronary artery disease) Hx CABG Alzheimers disease CVA (cerebral vascular accident) Brother H/O angioplasty Diabetes Brother CVA (cerebral vascular accident) Son Diabetes Social History household members: none Smoking Status: Never smoker alcohol intake: never substance use type: does not use diet: diabetic caffeine: Yes Type: coffee Number of servings: 3 what type of physical activity do you participate in: other details: PT frequency: 3-4 times per week duration: 30-45 minutes/day seatbelt use: always do you feel safe at home: Yes HPI LUMBAR SPINE Details: This documentation accurately reflects the service provided and the decisions made by , AALIYAH Lynn 06/21/25 1257. Part of today???s visit was documented by Sneha Hernandez RN, acting as scribe. LETICIA HERRERA is a 79 year old F here today for lumbar spine pain. She complains of low back pain that is worse on the left side. The pain does radiate down the the buttocks then wraps around to the anterior thigh and groin. This pain stops at the knee. She does have a history of suzie (more content not included)... Normal [facility] Urine Cultureon 05-27-2025 URC Klebsiella pneumoniae sp pneum [place] Count 80,000-100,000 Klebsiella pneumoniae sp pneum: REACTION Ampicillin Islt SONYA Ampicillin+Sulbac Islt SONYA <=2 S Cefepime Islt SONYA <=0.12 S cefTRIAXone Islt SONYA <=0.25 S Ciprofloxacin Islt SONYA <=0.06 S B-Lactamase Extended Susc Islt NEG Gentamicin Islt SONYA <=1 S levoFLOXacin Islt SONYA <=0.12 S Meropenem Islt SONYA <=0.25 S Nitrofurantoin Islt SONYA 32 S Pip+Tazo Islt SONYA <=4 S TMP SMX Islt SONYA <=20 S Normal [facility] Comment on above: Performed By: #### L 501.080 #### [facility] [address] [place], [place], [address] Urine cultureOrdered By: Natalia Gamble on 05-25-2025 Bacteria identified Cx Nom (U) Klebsiella pneumoniae sp pneum Abnormal [facility] Breast imaging reportOrdered By: Augustina Rocha on 03-10-2025 Study report [facility] Imaging Services [address] [place] [address] SCRN MAMM (CAD)W/EDMUND BILAT MR#: [id number] Acct: [id number] Name: LETICIA HERRERA Rep #: [id number] : 1945 F 79 From: Liz Rocha MD PCP: Dr. Lisa Gamble, Status: REG CLI Study:SCRN MAMM (CAD)W/EDMUND BILAT Date of Exa m: 03/10/25 Exam# [id number] Ordering Dr: Rebecca Gamble sa, DO EXAM: SCRN MAMM (CAD)W/EDMUND BILAT 03/10/2025 CLINICAL HISTORY: F, Age 79 y/o , SCREENING TECHNIQUE: Bilateral screening digital breast tomosynthesis with 2D and 3D images. Computeraided detection. COMPARISON: Prior exam(s) dated 03/09/2024, 02/28/2023, 02/27/2022. FINDINGS: TISSUE DENSITY: The breast tissue is composed of scattered area of fibroglandular density. Bilateral Breast Mammographic Findings: No significant masses, calcifications or other abnormalities are identified. BI/SCRN MAMM (CAD)W/EDMUND BILAT IMPRESSION: Right Breast: BIRADS 1 NEGATIVE. Left Breast: BIRADS 1 NEGATIVE. OVERALL FINAL ASSESSMENT: BIRADS 1 NEGATIVE. RECOMMENDATION: Routine annual follow-up in 1 Year A letter with findings and recommendations will be mailed to the patient. Reading Location: [facility] CC: Dr. Lisa Gamble DO ~ Lofter: Signed [facility] SCRN MAMM (CAD)W/EDMUND BILATo n 03-10-2025 SCRN MAMM (CAD)W/EDMUND BILAT [facility] Imaging Services [address] [place], [place] [address] SCRN MAMM (CAD)W/EDMUND BILAT MR#: [id number] Acct: [id number] Name: LETICIA HRERERA Rep #: [id number] : 1945 F 79 From: Augustina Rocha MD PCP: Dr. Lisa Gamble DO Status: REG CLI Study: SCRN MAMM (CAD)W/EDMUND BILAT Date of Exam: 02/28 10/24 Exam# [id number] Ordering Dr: Lisa Gamble DO EXAM: SCRN MAMM (CAD)W/EDMUND BILAT 03/10/2025 CLINICAL HISTORY: F, Age 79 y/o , SCREENING TECHNIQUE: Bilateral screening digital breast tomosynthesis with 2D and 3D images. Computer aided detection. COMPARISON: Prior exam(s) dated 03/09/2024, 02/28/2023, 02/27/2022. FINDINGS: TISSUE DENSITY: The breast tissue is composed of scattered area of fibroglandular density. Bilateral Breast Mammographic Findings: No significant masses, calcifications or other abnormalities are identified. BI/SCRN MAMM (CAD)W/EDMUND BILAT IMPRESSION: Right Breast: BIRADS 1 NEGATIVE. Left Breast: BIRADS 1 NEGATIVE. OVERALL FINAL ASSESSMENT: BIRADS 1 NEGATIVE. RECOMMENDATION: Routine annual follow-up in 1 Year A letter with findings and recommendations will be mailed to the patient. Reading Location: [facility] CC: Dr. Lisa Gamble DO Lofter: Signed Normal [facility] Oncology Visit Reporton 01-29 Oncology Visit Report [facility] [place] [address] OFFICE VISIT Date of Service: 02/25/25 1553 MR#: [id number] Acct: [id number] Name: LETICIA HERRERA Rep #: [id number] : 1945 From: Edenilson Campoverde MD Age/Sex: 79/F [place] [facility] [place]: Signed HPI Subjective Date of Service 02/25/25 Chief Complaint F/u for CT results. History of Present Illness 79-year-old woman was found to have a nasopharyngeal mass. He was referred to CT of the neck on 03/05/2024 showed large soft tissue mass centered in the left nasopharynx extending into the right nasopharynx extending inferiorly to the left oropharynx with lymphadenopathy throughout the left side of the neck. She had biopsy of the nasopharyngeal mass on 03/17/2024. 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 PET/CT obtained April 07, 2024 showed hypermetabolic activity bilateral lateral and anterior neck, left axillary region, left inguinal lymph node basins. Screening for hepatitis B and C negative. Got Bendamustine and Rituxan from 04/15/2024 to 05/26/2024 x 3cycles.. PET/CT performed 05/19/2024 demonstrated complete metabolic response. She is on observation. Had CT done because of ribs abnormality. Comes for follow up. No weight loss, fever or night sweats PFSH Medical History Foot drop Loss of hearing Wears hearing aid Wears glasses Wears contact lenses Wears dentures Cancer History of steroid therapy Arthritis High cholesterol Non-smoker History of stress test History of echocardiogram Cardiology follow-up encounter PONV (postoperative nausea and vomiting) Encounter for education Depression Upper GI bleed Atherosclerosis of coronary artery of [place] heart without angina pectoris Obesity Essential (primary) hypertension GERD (gastroesophageal reflux disease) Type 2 diabetes mellitus Hyperlipidemia Surgical History History of cardiac catheterization History of coronary artery stent placement (05/26/19) History of left heart catheterization (12/07/11) Hx of appendectomy History of laminectomy History of bilateral hip replacements History of total bilateral knee replacement History of hysterectomy H/O total hip arthroplasty Family History Father COPD (chronic obstructive pulmonary disease) Myocardial infarction Mother Diabetes CAD (coronary artery disease) Hx CABG Alzheimers disease CVA (cerebral vascular accident) Brother H/O angioplasty Diabetes Brother CVA (cerebral vascular accident) Son Diabetes Social History household members: none Smoking Status: Never smoker alcohol intake: never substance use type: does not use diet: diabetic caffeine: Yes Type: coffee Number of servings: 3 what type of physical activity do you participate in: other details: PT frequency: 3-4 times per week duration: 30-45 minutes/day seatbelt use: always do you feel safe at home: Yes Intake Vital Signs 02/24/25 14:08 02/25/25 15:55 Height 5 ft 3 in 5 ft 3 in Weight: 96.814 kg BMI 37.8 BP 134/68 H Blood Pressure Location Lt brachial Position Sitting Respiration 18 Pulse 77 Pulse Source Monitor Temp 97.7 F L Temperature Source Temporal Artery Pulse Oximetry (%) 94 Oxygen Delivery Method room air Intake Is patient in pain?: No Allergies adhesive tape Allergy (Verified 02/25/25 15:56) red, itchy atorvastatin (From Lipitor) Allergy (Verified 02/25/25 15:56) myalgias Iodinated Contrast Media (CT) Allergy (Verified 02/25/25 15:56) Shortness of breath Penicillins Allergy (Verified 02/25/25 15:56) Rash pravastatin Allergy (Verified 02/25/25 15:56) myalgias Medications ???Medication ???Instructions ???Recorded ???Confirmed ???Type rosuvastatin 5 mg tablet 5 mg PO QHS cholesterol 12/13/17 0 02/25/25 History acetaminophen 500 mg tablet 1,000 mg PO Q8 PRN pain 12/18/17 0 02/25/25 History paroxetine HCl 30 mg tablet 30 mg PO DAILY 01/26/20 02/25/25 H istory clopidogrel 75 mg tablet (Plavix) 75 mg PO QDAY #90 tabs 01/02/22 0 02/25/25 Rx dicyclomine 10 mg capsule 10 mg PO BID 05/15/22 02/25/25 His tory ascorbate calcium (vitamin C) 500 500 mg PO DAILY 06/18/23 02/25/25 History mg tablet mecobalamin (vitamin B12) 1,000 1,000 mcg PO DAILY 06/18/23 History mcg chewable tablet metformin 500 mg tablet,extended 500 mg PO BID diabetes 06/18/23 History release 24 hr zinc acetate 50 mg (zinc) capsule 50 mg PO DAILY 06/18/23 02/25/25 History famotidine 40 mg tablet (Pepcid) 40 mg PO DAILY 04/08/24 02/25/25 H (more content not included)... Normal [facility] Absolute lymphocyte countOrd ered By: Gladys English on 02-24-2025 Lymphocytes Auto (Unsp spec) [#/Vol] 1.41 10*3/uL 0.83-4.51 [facility] Absolute neutrophil countOrd ered By: Gladys English on 02-24-2025 Neutrophils (Bld) [#/Vol] 5.7 10*3/uL 2.0-7.7 [facility] Anion gap in Serum or Plasma Ordered By: Gladys English on 02-24-2025 Anion gap [Moles/Vol] 12 mmol/L 5-15 [facility] Automated lymphocyte count a s percentage of total leukocytesOrdered By: Gladys English on 02-24-2025 Lymphocytes/100 WBC Auto (Unsp spec) 18.1 % Low 19-41 [facility] BUN/creatinine ratioOrdered By: Gladys English on 02-24-2025 Urea nitrogen/Creatinine [Mass ratio] 29.1 mg/mg High 10-20 [facility] Basophil percentageOrdered B y: Gladys English on 02-24-2025 Basophils/100 WBC (Bld) 0.5 % 0-1 [facility] Bilirubin, totalOrdered By: Gladys English on 02-24-2025 Bilirubin [Mass/Vol] 0.44 mg/dL 0.00-1.30 [facility] CBC W/Diff, Automatedon 01-29 Absolute Lymph 1.41 X10 3/uL Normal 0.83-4.51 [facility] Comment on above: Performed By: #### L 504.2610, L500.4050, L100.0100 #### [facility] [address] [place], [address] Absolute Neut 5.7 X10 3/uL Normal 2.0-7.7 [facility] Comment on above: Performed By: #### L 504.2610, L500.4050, L100.0100 #### [facility] [address] [place], [address] Basophils/100 WBC (Bld) 0.5 % Normal 0-1 [facility] Comment on above: Performed By: #### L 504.2610, L500.4050, L100.0100 #### [facility] [address] [place], [address] Eosinophils/100 WBC (Bld) 1.4 % Normal 0-5 [facility] Comment on above: Performed By: #### L 504.2610, L500.4050, L100.0100 #### [facility] [address] [place], [address] Erythrocyte distribution width (RBC) [Ratio] 13.0 % Normal 11.6-14.6 [facility] Comment on above: Performed By: #### L 504.2610, L500.4050, L100.0100 #### [facility] [address] [place], [address] Hematocrit (Bld) [Volume fraction] 36.0 % Low 37-47 [facility] Comment on above: Performed By: #### L 504.2610, L500.4050, L100.0100 #### [facility] [address] [place], [address] Hemoglobin (Bld) [Mass/Vol] 11.9 g/dL Low 12.0-15.0 [facility] Comment on above: Performed By: #### L 504.2610, L500.4050, L100.0100 #### [facility] [address] [place], [address] IG% 0.300 Normal 0.0-0.9 [facility] Comment on above: Result Comment: IG% - Immature Granulocytes (promyelocytes, myelocytes and metamyelocytes) > 1% indicates that a LEFT SHIFT is Present. Performed By: #### L 504.2610, L500.4050, L100.0100 #### [facility] [address] [place], [address] Lymphocytes/100 WBC (Bld) 18.1 % Low 19-41 [facility] Comment on above: Performed By: #### L 504.2610, L500.4050, L100.0100 #### [facility] [address] [place], [address] MCH (RBC) [Entitic mass] 30.4 pg Normal 27.0-32.0 [facility] Comment on above: Performed By: #### L 504.2610, L500.4050, L100.0100 #### [facility] [address] [place], [address] MCHC (RBC) [Mass/Vol] 33.1 g/dL Normal 32-36 [facility] Comment on above: Performed By: #### L 504.2610, L500.4050, L100.0100 #### [facility] [address] [place], [address] MCV (RBC) [Entitic vol] 91.8 fL Normal 81-99 [facility] Comment on above: Performed By: #### L 504.2610, L500.4050, L100.0100 #### [facility] [address] [place], [address] Monocytes/100 WBC (Bld) 6.9 % Normal 0-10 [facility] Comment on above: Performed By: #### L 504.2610, L500.4050, L100.0100 #### [facility] [address] [place], [address] Neutrophils/100 WBC (Bld) 72.8 % High 47-70 [facility] Comment on above: Performed By: #### L 504.2610, L500.4050, L100.0100 #### [facility] [address] [place], [address] Nucleated RBC (Bld) [#/Vol] 0 10*3/uL Normal 0-5 [facility] Comment on above: Performed By: #### L 504.2610, L500.4050, L100.0100 #### [facility] [address] [place], [address] Platelet mean volume (Bld) [Entitic vol] 9.7 fL Normal 6.2-12.0 [facility] Comment on above: Performed By: #### L 504.2610, L500.4050, L100.0100 #### [facility] [address] [place], [address] Platelets (Bld) [#/Vol] 248 10*3/uL Normal 150-450 [facility] Comment on above: Performed By: #### L 504.2610, L500.4050, L100.0100 #### [facility] [address] [place], [address] RBC (Bld) [#/Vol] 3.92 10*6/uL Low 4.2-5.4 [facility] Comment on above: Performed By: #### L 504.2610, L500.4050, L100.0100 #### [facility] [address] [place], [address] RDW SD 43.6 fl Normal 35.1-43.9 [facility] Comment on above: Performed By: #### L 504.2610, L500.4050, L100.0100 #### [facility] [address] [place], [address] WBC (Bld) [#/Vol] 7.8 10*3/uL Normal 4.4-11.0 [facility] Comment on above: Performed By: #### L 504.2610, L500.4050, L100.0100 #### [facility] [address] [place], [address] CT Chest, Abd, Pelvis WO Con ton 02-24-2025 CT Chest, Abd, Pelvis WO Cont [facility] Imaging Services [address] [place] [address] CT Chest, Abd, Pelvis WO Cont MR#: [id number] Acct: [id number] Name: LETICIA HERRERA Rep #: [id number] : 1945 F 79 From: Willy Hollins MD PCP: Dr. Lisa Gamble, DO Status: REG CLI Study: CT Chest, Abd, Pelvis WO Cont Date of Exam: Exam# [id number] Ordering Dr: Gladys English NP METEOROLOGICAL AIDE -C EXAM: CT Chest, Abdomen and Pelvis Without Intravenous Contrast CLINICAL INDICATION: NEW SPLENOMEGALY; H/O FOLLICULAR LYMPHOMA TECHNIQUE: Axial computed tomography images of the chest, abdomen and pelvis without intravenous contrast. This CT exam was performed using one or more of the following dose reduction techniques: automated exposure control, adjustment of the mA and/or kV according to patient size, and/or use of iterative reconstruction technique. COMPARISON: No relevant prior studies available. FINDINGS: CHEST: LUNGS AND PLEURAL SPACES: Unremarkable. No mass. No consolidation. No significant effusion. No pneumothorax. HEART: Unremarkable. No cardiomegaly. No significant pericardial effusion. No significant coronary artery calcifications. MEDIASTINUM: A few prominent mediastinal lymph nodes measuring up to 6 mm. Small esophageal hiatal hernia. ABDOMEN: LIVER: Hepatic cysts. GALLBLADDER AND BILE DUCTS: Cholelithiasis. No ductal dilation. PANCREAS: Unremarkable. No ductal dilation. SPLEEN: Unremarkable. No splenomegaly. ADRENALS: Unremarkable. No mass. KIDNEYS AND URETERS: Unremarkable. No obstructing stones. No hydronephrosis. STOMACH AND BOWEL: Fecal retention in the colon consistent with constipation. No obstruction. No mucosal thickening. PELVIS: APPENDIX: No findings to suggest acute appendicitis. BLADDER: Unremarkable. No stones. REPRODUCTIVE: Unremarkable as visualized. CHEST, ABDOMEN and PELVIS: INTRAPERITONEAL SPACE: Unremarkable. No significant fluid collection. No free air. BONES/JOINTS: Cortical irregularity of the left 4th and 5th ribs could be nondisplaced fracture. Bilateral hip replacement resulting in beam hardening artifacts. These limit evaluation of the pelvis. Multilevel endplate degenerative changes and disc disease of the visualized spine, most prominent from L2-L5. SOFT TISSUES: Unremarkable. VASCULATURE: Scattered calcified atherosclerotic disease of aorta. No aortic aneurysm. LYMPH NODES: See above. CT/CT Chest, Abd, Pelvis WO Cont IMPRESSION: 1. Cortical irregularity of the left 4th and 5th ribs could be nondisplaced fracture. 2. Small esophageal hiatal hernia. 3. Cholelithiasis. 4. Fecal retention in the colon consistent with constipation. Reading Location: [facility] CC: METEOROLOGICAL AIDE-C Gladys English; Dr. Malys, DO Lofter: Signed Normal [facility] Carbon dioxide, total [Moles /volume] in Central venous bloodOrdered By: Gladys English on 02-24-2025 CO2 [Moles/Vol] 25.9 mmol/L 21.0-32.0 [facility] Chloride assayOrdered By: Ernesto English on 02-24-2025 Chloride [Moles/Vol] 99 mmol/L 98-108 [facility] Comprehensive Metabolic Prof ilon 02-24-2025 Albumin [Mass/Vol] 4.2 g/dL Normal 3.4-4.8 [facility] Comment on above: Performed By: #### L 504.2610, L500.4050, L100.0100 #### [facility] [address] [place], [address] Albumin/Globulin [Mass ratio] 2.0 {ratio} Normal 0.9-2.4 [facility] Comment on above: Performed By: #### L 504.2610, L500.4050, L100.0100 #### [facility] [address] [place], [address] ALK PHOS 92 U/L Normal 35-104 [facility] Comment on above: Performed By: #### L 504.2610, L500.4050, L100.0100 #### [facility] [address] [place], [address] ALT [Catalytic activity/Vol] 13 U/L Normal <=34 [facility] Comment on above: Performed By: #### L 504.2610, L500.4050, L100.0100 #### [facility] [address] [place], [address] AST [Catalytic activity/Vol] 23 U/L Normal <=31 [facility] Comment on above: Performed By: #### L 504.2610, L500.4050, L100.0100 #### [facility] [address] [place], [address] Bilirubin [Mass/Vol] 0.44 mg/dL Normal 0.00-1.30 [facility] Comment on above: Performed By: #### L 504.2610, L500.4050, L100.0100 #### [facility] [address] [place], [address] BUN/CRE 29.1 RATIO High 10-20 [facility] Comment on above: Performed By: #### L 504.2610, L500.4050, L100.0100 #### [facility] [address] [place], [address] Calcium [Mass/Vol] 9.1 mg/dL Normal 7.6-11.0 [facility] Comment on above: Performed By: #### L 504.2610, L500.4050, L100.0100 #### [facility] [address] [place], [address] Chloride [Moles/Vol] 99 mmol/L Normal 98-108 [facility] Comment on above: Performed By: #### L 504.2610, L500.4050, L100.0100 #### [facility] [address] [place], [address] CO2 [Moles/Vol] 25.9 mmol/L Normal 21.0-32.0 [facility] Comment on above: Performed By: #### L 504.2610, L500.4050, L100.0100 #### [facility] [address] [place], [address] Creatinine [Mass/Vol] 0.94 mg/dL Normal 0.70-1.20 [facility] Comment on above: Performed By: #### L 504.2610, L500.4050, L100.0100 #### [facility] [address] [place], [address] ECRCL 54.42 ml/min Normal 50-250 [facility] Comment on above: Performed By: #### L 504.2610, L500.4050, L100.0100 #### [facility] [address] [place], [address] GAP 12 Normal 5-15 [facility] Comment on above: Performed By: #### L 504.2610, L500.4050, L100.0100 #### [facility] [address] [place], [address] GFR/1.73 sq M.predicted among non-blacks MDRD (S/P/Bld) [Vol rate/Area] 63 mL/min/{1.73_m2} Normal >60 [facility] Comment on above: Result Comment: mL/m in/1.73m2 CKD-EPI Creatinine Equation (2020) Performed By: #### L 504.2610, L500.4050, L100.0100 #### [facility] [address] [place], [address] Globulin (S) [Mass/Vol] 2.1 g/dL Low 2.2-4.2 [facility] Comment on above: Performed By: #### L 504.2610, L500.4050, L100.0100 #### [facility] [address] [place], [address] Glucose [Mass/Vol] 225 mg/dL High 70-99 [facility] Comment on above: Performed By: #### L 504.2610, L500.4050, L100.0100 #### [facility] [address] [place], [address] Potassium [Moles/Vol] 4.4 mmol/L Normal 3.3-5.1 [facility] Comment on above: Performed By: #### L 504.2610, L500.4050, L100.0100 #### [facility] [address] [place], [address] Sodium [Moles/Vol] 137 mmol/L Normal 133-145 [facility] Comment on above: Performed By: #### L 504.2610, L500.4050, L100.0100 #### [facility] [address] [place], [address] T PROT 6.3 g/dL Normal 5.9-8.4 [facility] Comment on above: Performed By: #### L 504.2610, L500.4050, L100.0100 #### [facility] [address] [place], [address] Urea nitrogen [Mass/Vol] 27 mg/dL High 4-19 [facility] Comment on above: Performed By: #### L 504.2610, L500.4050, L100.0100 #### [facility] [address] [place], [address] Eosinophil percentageOrdered By: Gladys English on 02-24-2025 Eosinophils/100 WBC (Bld) 1.4 % 0-5 [facility] Erythrocyte distribution wid th ratioOrdered By: Gladys English on 02-24-2025 Erythrocyte distribution width (RBC) [Ratio] 13.0 % 11.6-14.6 [facility] Erythrocyte distribution wid th standard deviationOrdered By: Gladys English on 02-24-2025 Erythrocyte distribution width (RBC) [Ratio] 43.6 fl 35.1-43.9 [facility] Glomerular filtration rate ( GFR) estimation/1.73 sq m using serum, plasma, or whole bOrdered By: Gladys English on 02-24-2025 GFR/1.73 sq M.predicted among non-blacks MDRD (S/P/Bld) [Vol rate/Area] 63 mL/min/{1.73_m2} >60 [facility] Comment on above: mL/min/1.73m2 CKD-EP I Creatinine Equation (2020) Hematocrit Auto (Bld) [Volum e fraction]Ordered By: Gladys English on 02-24-2025 Hematocrit (Bld) [Volume fraction] 36.0 % Low 37-47 [facility] Hemoglobin measurementOrdere d By: Gladys English on 02-24-2025 Hemoglobin (Bld) [Mass/Vol] 11.9 g/dL Low 12.0-15.0 [facility] Immature granulocytes/100 WB C Auto (Bld)Ordered By: Gladys English on 02-24-2025 Immature granulocytes/100 WBC (Bld) 0.300 % 0.0-0.9 [facility] Comment on above: IG% - Immature Granu locytes (promyelocytes, myelocytes and metamyelocytes) > 1% indicates that a LEFT SHIFT is Present. LDHon 02-24-2025 LDH 175 U/L Normal 84-246 [facility] Comment on above: Order Comment: 1 Performed By: #### L 504.2610, L500.4050, L100.0100 #### [facility] [address] [facility] [place], [address] Laboratory - Chemistry and C hemistry - challengeOrdered By: Gladys English on 02-24-2025 AST [Catalytic activity/Vol] 23 U/L <32 [facility] Lactate dehydrogenase (LDH) measurementOrdered By: Gladys English on 02-24-2025 LDH [Catalytic activity/Vol] 175 U/L 84-246 [facility] MCV (mean corpuscular volume ) determinationOrdered By: Gladys English on 02-24-2025 MCV (RBC) [Entitic vol] 91.8 fL 81-99 [facility] Mean corpuscular hemoglobin (MCH) determinationOrdered By: Gladys English on 02-24-2025 MCH (RBC) [Entitic mass] 30.4 pg 27.0-32.0 [facility] Mean corpuscular hemoglobin concentration (MCHC) determinationOrdered By: Gladys English on 02-24-2025 MCHC (RBC) [Mass/Vol] 33.1 g/dL 32-36 [facility] Mean platelet volume determi nationOrdered By: Gladys English on 02-24-2025 Platelet mean volume (Bld) [Entitic vol] 9.7 fL 6.2-12.0 [facility] Monocyte percentageOrdered B y: Gladys English on 02-24-2025 Monocytes/100 WBC (Bld) 6.9 % 0-10 [facility] Neutrophil percentageOrdered By: Gladys English on 02-24-2025 Neutrophils/100 WBC (Bld) 72.8 % High 47-70 [facility] Nucleated red blood cell per centageOrdered By: Gladys English on 02-24-2025 Nucleated RBC/100 WBC (Bld) [Ratio] 0 % 0-5 [facility] Oncology Visit Reporton 01-29 Oncology Visit Report [facility] [place] [address] [place] [address] OFFICE VISIT Date of Service: 02/24/25 1402 MR#: [id number] Acct: [id number] Name: LETICIA HERRERA Rep #: [id number] : 1945 From: Gladys Jorge Age/Sex: 79/F Location[place] [facility] [place] [place] Status: Signed with Addenda ADDENDUM by METEOROLOGICAL AIDE-C Gladys English on 02/24/25 at 1458 Subjective Chief Complaint Acute visit- lump under ribs History of Present Illness The patient is presenting to clinic for an acute visit at her request with c/o left rib mass. Reports she initially noticed mass 1 month ago, believes is growing in size. Describes her entire abd as enlarged although denies abd pain. Attributes SOB to increasing abd girth. Admits her appetite is decreased, but I eat anyway. Specifically denies weight loss, early satiety, night sweats, enlarged lymph nodes, dysphagia, CP, palpitations, cough, swelling/pain of her extremities, and any episodes of overt bleeding/abnormal bruising. Interval History The patient is presenting to clinic for an acute visit at her request with c/o left rib mass. Reports she initially noticed mass 1 month ago, believes is growing in size. Describes her entire abd as enlarged although denies abd pain. Attributes SOB to increasing abd girth. Admits her appetite is decreased, but I eat anyway. Specifically denies weight loss, early satiety, night sweats, enlarged lymph nodes, dysphagia, CP, palpitations, cough, swelling/pain of her extremities, and any episodes of overt bleeding/abnormal bruising. Assessment and Plan Assessment and Plan (1) Follicular lymphoma grade 3a: Status: Chronic Qualifiers: Lymphoma site: multiple regions Qualified Code(s): C82.38 - Follicular lymphoma grade IIIa, lymph nodes of multiple sites Comment: Stage III, both sides of the diaphragm, large nasopharyngeal mass. Started treatment with Bendamustine and Rituxan on 04/15/2024 and 05/26/2024. Has had resolution of throat mass and neck nodes. PET/CT on 05/19/2024 reviewed, no hypermetabolic activities-complete response. She is on observation. Orders: Orders CBC W/Diff, Automated Today C82.38 - Follicular lymphoma grade IIIa, lymph nodes of multiple sites Comprehensive Metabolic Profil Today C82.38 - Follicular lymphoma grade IIIa, lymph nodes of multiple sites LDH Today C82.38 - Follicular lymphoma grade IIIa, lymph nodes of multiple sites CT Chest, Abd, Pelvis WO Cont Today C82.38 - Follicular lymphoma grade IIIa, lymph nodes of multiple sites Soft Tissue Neck without Contr Today C82.38 - Follicular lymphoma grade IIIa, lymph nodes of multiple sites Plan Follow up with ENT is scheduled in 3 weeks. 02/24/25 1458 Date Gladys English NP METEOROLOGICAL AIDE-C cc: * Signed HPI Subjective Date of Service 02/24/25 Chief Complaint Acute visit- lump under ribs History of Present Illness 79-year-old woman was found to have a nasopharyngeal mass. He was referred to CT of the neck on 03/05/2024 showed large soft tissue mass centered in the left nasopharynx extending into the right nasopharynx extending inferiorly to the left oropharynx with lymphadenopathy throughout the left side of the neck. She had biopsy of the nasopharyngeal mass on 03/17/2024. 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 PET/CT obtained April 07, 2024 showed hypermetabolic activity bilateral lateral and anterior neck, left axillary region, left inguinal lymph node basins. Screening for hepatitis B and C negative. Got Bendamustine and Rituxan from 04/15/2024 to 05/26/2024 x 3cycles.. PET/CT performed 05/19/2024 demonstrated complete metabolic response. She is on observation. Interval History The patient is presenting to clinic for an acute visit at her request with c/o left rib mass. Reports she initially noticed mass 1 month ago, believes is growing in size. Describes her entire abd as enlarged although denies abd pain. Attributes SOB to increasing abd girth. Admits her appetite is decreased, but I eat anyway. Specifically denies weight loss, early satiety, night sweats, enlarged lymph nodes, dysphagia, CP, palpitations, cough, swelling/pain of her extremities, and any episodes of overt bleeding/abnormal bruising. [facility] Medical History Foot drop Loss of hearing Wears hearing aid Wears glasses Wears contact lenses Wears dentures Cancer History of steroid therapy Arthritis High cholesterol Non-smoker History of stress test History of echocardiogram Cardiology follow-up encounter PONV (postoperative nausea and vomiting) Encounter for education Depression Upper GI bleed Atherosclerosis of coronary artery of [place] heart without angina pectoris Obesity [place] (more content not included)... Normal [facility] Platelet countOrdered By: Ernesto English on 02-24-2025 Platelets (Bld) [#/Vol] 248 10*3/uL 150-450 [facility] Potassium measurement (mass/ volume)Ordered By: Gladys English on 02-24-2025 Potassium (Unsp spec) [Mass/Vol] 4.4 mmol/L 3.3-5.1 [facility] RBC Auto (Bld) [#/Vol]Ordere d By: Gladys English on 02-24-2025 RBC (Bld) [#/Vol] 3.92 10*6/uL Low 4.2-5.4 [facility] Serum creatinine measurement (mass/volume)Ordered By: Gladys English on 02-24-2025 Creatinine [Mass/Vol] 0.94 mg/dL 0.70-1.20 [facility] Serum globulin measurementOr dered By: Gladys English on 02-24-2025 Globulin (S) [Mass/Vol] 2.1 g/dL Low 2.2-4.2 [facility] Serum glucose measurement (m ass/volume)Ordered By: Gladys Amador on 02-24-2025 Glucose [Mass/Vol] 225 mg/dL High 70-99 [facility] Serum or plasma alanine fernandez otransferase (ALT) measurementOrdered By: [facility] on 02-24-2025 ALT [Catalytic activity/Vol] 13 U/L <35 [facility] Serum or plasma albumin kavita urement (mass/volume)Ordered By: [facility] on 02-24-2025 Albumin [Mass/Vol] 4.2 g/dL 3.4-4.8 [facility] Serum or plasma albumin/glob ulin mass ratioOrdered By: [facility] on 02-24-2025 Albumin/Globulin [Mass ratio] 2.0 {ratio} 0.9-2.4 [facility] Serum or plasma alkaline tamir sphatase measurementOrdered By: Gladys Amador on 02-24-2025 ALP [Catalytic activity/Vol] 92 U/L 35-104 [facility] Serum or plasma calcium kavita urement (mass/volume)Ordered By: Gladys Amador on 02-24-2025 Calcium [Mass/Vol] 9.1 mg/dL 7.6-11.0 [facility] Serum or plasma urea nitroge n measurement (mass/volume)Ordered By: Gladys Amador on 02-24-2025 Urea nitrogen [Mass/Vol] 27 mg/dL High 4-19 [facility] Sodium levelOrdered By: Gladys Amador on 02-24-2025 Sodium [Moles/Vol] 137 mmol/L 133-145 [facility] Soft Tissue Neck without Con mitesh 02-24-2025 Soft Tissue Neck without Contr [facility] Imaging Services [address] [place] [address] Soft Tissue Neck without Contr MR#: [id number] Acct: [id number] Name: LETICIA HERRERA Rep #: [id number] : 1945 F 79 From: Otto Fisher MD PCP: Dr. Lisa Gamble DO Status: REG CLI Study: Soft Tissue Neck without Contr Date of Exam: 0 02/24/25 Exam# [id number] Ordering Dr: Gladys English NP METEOROLOGICAL AIDE -[place] PROCEDURE: SOFT TISSUE NECK WITHOUT CONTR 02/24/2025 REASON FOR EXAM: FOLLICULAR LYMPHOMA TECHNIQUE: CT of the soft tissues of the neck from the orbits to the upper mediastinum without intravenous contrast One or more dose reduction techniques were used (e.g., Automated exposure control, adjustment of the mA and/or kV according to patient size, use of iterative reconstruction technique). RADIATION DOSE SUMMARY: CTDlvol: 20.32+ 20.24+ 20.39 mGy DLP: 2314.92 mGycm COMPARISON: None. FINDINGS: Airway: Midline and patent. Salivary glands: Unremarkable. Lymph nodes: No cervical lymphadenopathy. Thyroid: Unremarkable. Vasculature: Moderate calcified plaque of the carotid arteries. Orbits: Unremarkable at visualized levels. Paranasal sinuses and mastoids: Grossly clear at visualized levels. Lung apices: Clear. Upper mediastinum: Visualized mediastinum is unremarkable. Bones: Multilevel degenerative changes of the spine. Other: Right chest infusion port. CT/Soft Tissue Neck without Contr IMPRESSION: No acute abnormalities. Reading Location: [place] [address] CC: METEOROLOGICAL AIDE-C Gladys English; Dr. Lisa Gamble DO Lofter: Signed Normal [facility] Total proteinOrdered By: Sharda English on 02-24-2025 Protein [Mass/Vol] 6.3 g/dL 5.9-8.4 [facility] White blood cell (WBC) count Ordered By: Gladys English on 02-24-2025 WBC (Bld) [#/Vol] 7.8 10*3/uL 4.4-11.0 [facility] Body Fluid Culton 01-09-2025 BFC UNK UNK to be collected in radiology No growth in 5 days. Normal [facility] Comment on above: Performed By: #### L 504.2610, L500.4050, L100.0100 #### [facility] [address] [place], [address] Bedside Glucoseon 01-05-2025 FINGERSTICK GLU 193 mg/dL High 74-106 [facility] Comment on above: Result Comment: HECTOR GEMENT OF PATIENT CARE PER NURSING PROTOCOL Performed By: #### L 504.2610, L500.4050, L100.0100 #### [facility] [address] [place], [address] FINGERSTICK GLU 142 mg/dL High 74-106 [facility] Comment on above: Result Comment: HECTOR GEMENT OF PATIENT CARE PER NURSING PROTOCOL Performed By: #### L 504.2610, L500.4050, L100.0100 #### [facility] [address] [place], [address] Discharge Instructionon Discharge Instruction [facility] Medical Records Department [address] [facility] [place] [address] Instructions for Home/Discharge Instructions 01/05/25 1254 MR#: [id number] Acct: [id number] Name: LETICIA HERRERA Rep #: [id number] : 1945 79 From: Rosy Nguyen MD PCP: Dr. Lisa Gamble, DO Status:ADM IN Discharge Instructions Diet Discharge Diet: - (Consistent carbohydrate) DC O2, CPAP, BIPAP needs Home O2 Discharge instructions: No Dressing / Incision Discharge Activity: - (Activity as tolerated) Follow Up Care Test Results: Test results from this visit will be discussed in further detail at your follow-up appointment, if applicable. Discharge Plan Admission Admit Date/Time: 12/31/24 15:43 Primary Reason for Your Visit: Left hip pain Attending Provider: Rosy Nguyen Primary Care Provider: Lisa Gamble Consulting Providers: Chey Clark; Solis Meek; Henrique Holloway; Terrance Harrell Instructions Patient Instructions: ED Fall Prevention Additional Instructions / Restrictions: DISCHARGE INSTRUCTIONS PLEASE READ *Please take this with you to your next doctors appointment* -Please follow-up with orthopedic surgery upon discharge. Please call their office to schedule hospital follow-up appointment upon discharge if you do not already have one scheduled. - You will need to take a baby aspirin twice daily in addition your Plavix to help prevent blood clots -Your lisinopril has been stopped at this time due to a very well-controlled blood pressure, this may need to be restarted in the future but would follow-up closely with your primary care physician this can be resumed if necessary at that time - You will be discharged with a short course of gabapentin 3 times daily as you did well with this in the hospital, It will be important follow-up with your outpatient doctors for further management. -We discussed your glucose monitoring and insulin regimen, if there are any further questions or concerns please contact your prescribing provider -Please call your primary care provider's office upon discharge to schedule a hospital follow up within 1 week. -For any concerning signs or symptoms please call 911 or proceed to the nearest emergency department Discharge Orders/Prescriptions Prescriptions: New gabapentin 100 mg Capsule 100 mg PO TIDCM 14 Days Qty: 42 0RF Continued paroxetine HCl 30 mg tablet 30 mg PO DAILY Patient Comments: take 1 tablet by mouth every morning metformin 500 mg tablet extended release 24 hr 500 mg PO BID Patient Comments: DIABETES dicyclomine 10 mg capsule 10 mg PO BID mecobalamin (vitamin B12) 1,000 mcg tablet,chewable 1,000 mcg PO DAILY ascorbate calcium (vitamin C) 500 mg tablet 500 mg PO DAILY zinc acetate 50 mg (zinc) capsule 50 mg PO DAILY insulin glargine [Lantus Solostar U-100 Insulin] 100 unit/mL (3 mL) insulin pen 10 unit subcut QPM Rx Instructions: 10 units at bedtime 45 units in the am famotidine [Pepcid] 40 mg tablet 40 mg PO DAILY acetaminophen 500 mg tablet 1,000 mg PO Q8 PRN (Reason: pain) Patient Comments: Pain rosuvastatin 5 MG tablet 5 mg PO QHS clopidogrel [Plavix] 75 mg tablet 75 mg PO QDAY Qty: 90 3RF isosorbide dinitrate 10 mg tablet See Rx Instructions .ROUTE .COMPLEX Qty: 270 3RF Dose Instruction: take 1 tablet by mouth three times a day for blood pressure Rx Instructions: take 1 tablet by mouth three times a day for blood pressure metoprolol tartrate 25 mg tablet See Rx Instructions .ROUTE .COMPLEX Qty: 180 3RF Dose Instruction: take 1 tablet by mouth twice a day for blood pressure Rx Instructions: take 1 tablet by mouth twice a day for blood pressure Changed aspirin 81 MG tablet,chewable 81 mg PO BID Qty: 60 0RF Discontinued benazepril 20 MG tablet 20 mg PO DAILY Patient Comments: TAKE ONE TABLET BY MOUTH EVERY DAY Referrals / Follow Up: Lisa Gamble DO [Primary Care Provider] - Within 1 Week Tarik Roque MD [Med Staff - Active Staff] - Disposition Disposition (needs filled in before D/C Order can be placed): Home, Self Care 01/05/25 1258 Rosy Nguyen MD CC: Dr. Chey Clark MD; Dr. Lisa Gamble DO; Dr. Terrance Harrell MD; Dr. Henrique Holloway MD; Dr. Solis Meek MD Signed Normal [facility] deOrdered By: Rosy Nguyen on 01-05-2025 Glucose [Mass/Vol] 193 mg/dL High [address] [place] [address] Comment on above: MANAGEMENT OF PATIEN T CARE PER NURSING PROTOCOL Bedside Glucoseon 01-04-2025 FINGERSTICK GLU 248 mg/dL High [address] [place] [address] Comment on above: Result Comment: HECTOR GEMENT OF PATIENT CARE PER NURSING PROTOCOL Performed By: #### L 504.2610, L500.4050, L100.0100 #### [facility] [address] [facility] [address] FINGERSTICK GLU 188 mg/dL [address] Comment on above: Result Comment: HECTOR GEMENT OF PATIENT CARE PER NURSING PROTOCOL Performed By: #### L 504.2610, L500.4050, L100.0100 #### [facility] [address] [place], [address] FINGERSTICK GLU 214 mg/dL High [address] [place] [address] Comment on above: Result Comment: HECTOR GEMENT OF PATIENT CARE PER NURSING PROTOCOL Performed By: #### L 504.2610, L500.4050, L100.0100 #### [facility] [address] [place], [address] FINGERSTICK GLU 141 mg/dL High 74-106 [facility] Comment on above: Result Comment: HECTOR POLO OF PATIENT CARE PER NURSING PROTOCOL Performed By: #### L 504.2610, L500.4050, L100.0100 #### [facility] [address] [place], [address] Consultation - Infectious Dx on 01-04-2025 Consultation - Infectious Dx [facility] Medical Records Department [address] [place] [address] Consultation - Infectious Dx 01/04/25 1503 MR#: [id number] Acct: [id number] Name: LETICIA HERRERA Rep #: [id number] : 1945 79 From: Henrique Holloway MD PCP: Dr. Lisa Gamble, DO Status:ADM IN Location: [place] [address] Assessment Plan Assessment/Plan (1) 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: PLAN: Aspiration gram stain and cx remain neg. No fever, no leukocytosis. Port in place in R chest. Some hardware loosening seen, will cont to monitor off of abx for now. 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 Had replacement about 8 years ago. Was on feet more than usual that day a week ago, had progressive soreness. No fever, no redness/drainage/swe lling. Came to ED 12/30, admitted, seen by ortho, aspiration done, has remained off abx. Hip still sore. Full ROS performed and neg except as noted above. [facility] Medical History Foot drop Loss of hearing Wears hearing aid Wears glasses Wears contact lenses Wears dentures Cancer History of steroid therapy Arthritis High cholesterol Non-smoker History of stress test History of echocardiogram Cardiology follow-up encounter PONV (postoperative nausea and vomiting) Encounter for education Depression Upper GI bleed Atherosclerosis of coronary artery of [place] heart without angina pectoris Obesity Essential (primary) hypertension GERD (gastroesophageal reflux disease) Type 2 diabetes mellitus Hyperlipidemia Home Medications ???Medication ???Instructions ???Recorded ???Last Taken ???Type aspirin 81 mg chewable tablet 81 mg PO DAILY health maintenance 12/13/17 04/18/24 History benazepril 20 mg tablet 20 mg PO DAILY blood pressure 11/2809/06/19 21:00 History rosuvastatin 5 mg tablet 5 mg PO QHS cholesterol 12/13/17 1 11/07/18 21:00 History acetaminophen 500 mg tablet 1,000 mg PO Q8 PRN pain 12/18/17 1 11/07/18 15:00 History paroxetine HCl 30 mg tablet 30 mg PO DAILY 01/26/20 04/24/24 H istory clopidogrel 75 mg tablet (Plavix) 75 mg PO QDAY #90 tabs 01/02/22 0 04/18/24 Rx dicyclomine 10 mg capsule 10 mg PO BID 05/15/22 Unknown Hist ory ascorbate calcium (vitamin C) 500 500 mg PO DAILY 06/18/23 Unknown History mg tablet mecobalamin (vitamin B12) 1,000 1,000 mcg PO DAILY 06/18/23 Unknow n History mcg chewable tablet metformin 500 mg tablet,extended 500 mg PO BID diabetes 06/18/23 Un known History release 24 hr zinc acetate 50 mg (zinc) capsule 50 mg PO DAILY 06/18/23 Unknown H istory famotidine 40 mg tablet (Pepcid) 40 mg PO DAILY 04/08/24 04/24/24 H istory insulin glargine 100 unit/mL (3 10 unit subcut QPM 04/08/24 Unknow n History mL) subcutaneous pen (Lantus Solostar U-100 Insulin) isosorbide dinitrate 10 mg tablet See Rx Instructions .Route Unknown Rx .COMPLEX #270 tabs metoprolol tartrate 25 mg tablet See Rx Instructions .Route 4 Unknown Rx .COMPLEX #180 TABLETS Allergy/AdvReac Type Severity Reaction Status Date / Time adhesive tape Allergy red, itchy Verified 12/29/24 20:13 atorvastatin (From Lipitor) Allergy myalgias Verified 12/29/24 20:13 Iodinated Contrast Media (CT) Allergy Shortness Verified 12/29/24 20:13 of breath Penicillins Allergy Rash Verified 12/29/24 20:13 pravastatin Allergy myalgias Verified 12/29/24 20:13 Family History Father COPD (chronic obstructive pulmonary disease) Myocardial infarction Mother Diabetes CAD (coronary artery disease) Hx CABG Alzheimers disease CVA (cerebral vascular accident) Brother H/O angioplasty Diabetes Brother CVA (cerebral vascular accident) Son Diabetes Surgical History History of cardiac catheterization History of coronary artery stent placement (05/26/19) History of left heart catheterization (12/07/11) Hx of appendectomy History of laminectomy History of bilateral hip replacements History of total bilateral knee replacement History of hysterectomy H/O total hip arthroplasty Social History household members: none Smoking Status: Never smoker alcohol intake: never substance use type: does not use diet: diabetic caffeine: Yes Type: coffee Number of servings: 3 what type of physical activity do you participate in: other details: PT frequency: 3-4 times per week duration: 30-45 minutes/day (more content not included)... Normal [facility] Culture, Anaerobic Any Sourc renetta 01-04-2025 CUAN UNK UNK to be collected in radiology No anaerobic bacteria isolated. Normal [facility] Comment on above: Performed By: #### L 504.2610, L500.4050, L100.0100 #### [facility] [address] [place], [address] Bedside Glucoseon 01-03-2025 FINGERSTICK GLU 220 mg/dL High 74-106 [facility] Comment on above: Result Comment: HECTOR GEMENT OF PATIENT CARE PER NURSING PROTOCOL Performed By: #### L 504.2610, L500.4050, L100.0100 #### [facility] [address] [place], [address] FINGERSTICK GLU 172 mg/dL High 74-106 [facility] Comment on above: Result Comment: HECTOR GEMENT OF PATIENT CARE PER NURSING PROTOCOL Performed By: #### L 504.2610, L500.4050, L100.0100 #### [facility] [address] [place], [address] FINGERSTICK GLU 180 mg/dL High 74-106 [facility] Comment on above: Result Comment: HECTOR GEMENT OF PATIENT CARE PER NURSING PROTOCOL Performed By: #### L 504.2610, L500.4050, L100.0100 #### [facility] [address] [place], [address] FINGERSTICK GLU 178 mg/dL High 74-106 [facility] Comment on above: Result Comment: HECTOR GEMENT OF PATIENT CARE PER NURSING PROTOCOL Performed By: #### L 504.2610, L500.4050, L100.0100 #### [facility] [address] [place], [address] Gram Stainon 01-03-2025 GS UNK UNK to be collected in radiology Gram Stain No organisms seen Normal [facility] Comment on above: Performed By: #### L 504.2610, L500.4050, L100.0100 #### [facility] [address] [place], [address] Bedside Glucoseon 01-02-2025 FINGERSTICK GLU 267 mg/dL High 74-106 [facility] Comment on above: Result Comment: HECTOR GEMENT OF PATIENT CARE PER NURSING PROTOCOL Performed By: #### L 504.2610, L500.4050, L100.0100 #### [facility] [address] [place], [address] FINGERSTICK GLU 131 mg/dL High 74-106 [facility] Comment on above: Result Comment: HECTOR GEMENT OF PATIENT CARE PER NURSING PROTOCOL Performed By: #### L 504.2610, L500.4050, L100.0100 #### [facility] [address] [place], [address] FINGERSTICK GLU 206 mg/dL High 74-106 [facility] Comment on above: Result Comment: HECTOR GEMENT OF PATIENT CARE PER NURSING PROTOCOL Performed By: #### L 100.0100, L100.0500, L500.4050 #### [facility] [address] [place], [address] FINGERSTICK GLU 194 mg/dL High 74-106 [facility] Comment on above: Result Comment: HECTOR GEMENT OF PATIENT CARE PER NURSING PROTOCOL Performed By: #### L 504.2610, L500.4050, L100.0100 #### [facility] [address] [place], [address] Absolute lymphocyte countOrd ered By: Koki Arriaza on 01-01-2025 Lymphocytes Auto (Unsp spec) [#/Vol] 0.93 10*3/uL 0.83-4.51 [facility] Absolute neutrophil countOrd ered By: Koki Arriaza on 01-01-2025 Neutrophils (Bld) [#/Vol] 1.9 10*3/uL Low 2.0-7.7 [facility] Activated partial thrombopla stin time (aPTT) in platelet poor plasma by coagulation aOrdered By: Koki Arriaza on 01-01-2025 aPTT Coag (PPP) [Time] 28.5 s 24.1-36.2 [facility] Anaerobic cultureOrdered By: Tarik Roque on 01-01-2025 Bacteria identified Anaer cx Nom (Unsp spec) No anaerobic bacteria isolated. [facility] Anion gap in Serum or Plasma Ordered By: Terrance Harrell on 01-01-2025 Anion gap [Moles/Vol] 11 mmol/L 5-15 [facility] Automated lymphocyte count a s percentage of total leukocytesOrdered By: Koki Arriaza on 01-01-2025 Lymphocytes/100 WBC Auto (Unsp spec) 26.1 % 19-41 [facility] BUN/creatinine ratioOrdered By: Terrance Harrell on 01-01-2025 Urea nitrogen/Creatinine [Mass ratio] 23.9 mg/mg High 10-20 [facility] Basic Metabolic Profile (BMP )on 01-01-2025 BUN/CRE 23.9 RATIO High 10-20 [facility] Comment on above: Performed By: #### L 100.0100, L100.0500, L500.4050 #### [facility] [address] [place], [address] Calcium [Mass/Vol] 9.1 mg/dL Normal 7.6-11.0 [facility] Comment on above: Performed By: #### L 100.0100, L100.0500, L500.4050 #### [facility] [address] [place], [address] Chloride [Moles/Vol] 105 mmol/L Normal 98-108 [facility] Comment on above: Performed By: #### L 100.0100, L100.0500, L500.4050 #### [facility] [address] [place], [address] CO2 [Moles/Vol] 25.0 mmol/L Normal 21.0-32.0 [facility] Comment on above: Performed By: #### L 100.0100, L100.0500, L500.4050 #### [facility] [address] [place], [address] Creatinine [Mass/Vol] 0.68 mg/dL Low 0.70-1.20 [facility] Comment on above: Performed By: #### L 100.0100, L100.0500, L500.4050 #### [facility] [address] [place], [address] ECRCL 64.37 ml/min Normal 50-250 [facility] Comment on above: Performed By: #### L 100.0100, L100.0500, L500.4050 #### [facility] [address] [place], [address] GAP 11 Normal 5-15 [facility] Comment on above: Performed By: #### L 100.0100, L100.0500, L500.4050 #### [facility] [address] [place], [address] GFR/1.73 sq M.predicted among non-blacks MDRD (S/P/Bld) [Vol rate/Area] 90 mL/min/{1.73_m2} Normal >60 [facility] Comment on above: Result Comment: mL/m in/1.73m2 CKD-EPI Creatinine Equation (2020) Performed By: #### L 100.0100, L100.0500, L500.4050 #### [facility] [address] [place], [address] Glucose [Mass/Vol] 196 mg/dL High 70-99 [facility] Comment on above: Performed By: #### L 100.0100, L100.0500, L500.4050 #### [facility] [address] [place], [address] Potassium [Moles/Vol] 4.1 mmol/L Normal 3.3-5.1 [facility] Comment on above: Performed By: #### L 100.0100, L100.0500, L500.4050 #### [facility] [address] [place], [address] Sodium [Moles/Vol] 141 mmol/L Normal 133-145 [facility] Comment on above: Performed By: #### L 100.0100, L100.0500, L500.4050 #### [facility] [address] [place], [address] Urea nitrogen [Mass/Vol] 16 mg/dL Normal 4-19 [facility] Comment on above: Performed By: #### L 100.0100, L100.0500, L500.4050 #### [facility] [address] [place], [address] Basophil percentageOrdered B y: Koki Arriaza on 01-01-2025 Basophils/100 WBC (Bld) 0.8 % 0-1 [facility] Bedside Glucoseon 01-01-2025 FINGERSTICK GLU 209 mg/dL High 74-106 [facility] Comment on above: Result Comment: HECTOR GEMENT OF PATIENT CARE PER NURSING PROTOCOL Performed By: #### L 501.080 #### [facility] [address] [place], [address] FINGERSTICK GLU 296 mg/dL High [facility]106 [facility] Comment on above: Result Comment: HECTOR GEMENT OF PATIENT CARE PER NURSING PROTOCOL Performed By: #### L 504.2610, L500.4050, L100.0100 #### [facility] [address] [place], [address] FINGERSTICK GLU 181 mg/dL High -106 [facility] Comment on above: Result Comment: HECTOR GEMENT OF PATIENT CARE PER NURSING PROTOCOL Performed By: #### L 504.2610, L500.4050, L100.0100 #### [facility] [address] [place], [address] FINGERSTICK GLU 190 mg/dL High [facility]106 [facility] Comment on above: Result Comment: HECTOR GEMENT OF PATIENT CARE PER NURSING PROTOCOL Performed By: #### L 504.2610, L500.4050, L100.0100 #### [facility] [address] [place], [address] Body Fluid Cell Count+Diffon 01-01-2025 PATH COMM/BF May follow Normal [facility] Comment on above: Order Comment: 1 Result Comment: QNS. ONLY 1 DROP OF SAMPLE IN SYRINGE. HERIBERTO STARKEY SPOKE WITH DR. ROQUE AND DR. ROQUE SAID IF UNABLE TO DO CELL COUNT, PLEASE DO CULTURE FIRST. JSTRAUB Performed By: #### L 504.2610, L500.4050, L100.0100 #### [facility] [address] [place], [address] APPEAR/BF Normal [facility] Comment on above: Order Comment: 1 Result Comment: QNS. ONLY 1 DROP OF SAMPLE IN SYRINGE. HERIBERTO STARKEY SPOKE WITH DR. ROQUE AND DR. ROQUE SAID IF UNABLE TO DO CELL COUNT, PLEASE DO CULTURE FIRST. JSTRAUB Performed By: #### L 504.2610, L500.4050, L100.0100 #### [facility] [address] [place], [address] BFM 2ND SPEC Normal [facility] Comment on above: Order Comment: 1 Result Comment: QNS. ONLY 1 DROP OF SAMPLE IN SYRINGE. HERIBERTO STARKEY SPOKE WITH DR. ROQUE AND DR. ROQUE SAID IF UNABLE TO DO CELL COUNT, PLEASE DO CULTURE FIRST. JSTRAUB Performed By: #### L 504.2610, L500.4050, L100.0100 #### [facility] [address] [place], [address] BFTC# Normal [facility] Comment on above: Order Comment: 1 Result Comment: QNS. ONLY 1 DROP OF SAMPLE IN SYRINGE. HERIBERTO STARKEY SPOKE WITH DR. ROQUE AND DR. ROQUE SAID IF UNABLE TO DO CELL COUNT, PLEASE DO CULTURE FIRST. JSTRAUB Performed By: #### L 504.2610, L500.4050, L100.0100 #### [facility] [address] [place], [address] BODY FLUID QC Normal [facility] Comment on above: Order Comment: 1 Result Comment: QNS. ONLY 1 DROP OF SAMPLE IN SYRINGE. HERIBERTO STARKEY SPOKE WITH DR. ROQUE AND DR. ROQUE SAID IF UNABLE TO DO CELL COUNT, PLEASE DO CULTURE FIRST. JSTRAUB Performed By: #### L 504.2610, L500.4050, L100.0100 #### [facility] [address] [place], [address] COLOR/BF Normal [facility] Comment on above: Order Comment: 1 Result Comment: QNS. ONLY 1 DROP OF SAMPLE IN SYRINGE. HERIBERTO STARKEY SPOKE WITH DR. ROQUE AND DR. ROQUE SAID IF UNABLE TO DO CELL COUNT, PLEASE DO CULTURE FIRST. JSTRAUB Performed By: #### L 504.2610, L500.4050, L100.0100 #### [facility] [address] [place], [address] qBKG ANALYZ OK? Normal W/IN LIMITS [facility] Comment on above: Order Comment: 1 Result Comment: QNS. ONLY 1 DROP OF SAMPLE IN SYRINGE. HERIBERTO STARKEY SPOKE WITH DR. ROQUE AND DR. ROQUE SAID IF UNABLE TO DO CELL COUNT, PLEASE DO CULTURE FIRST. JSTRAUB Performed By: #### L 504.2610, L500.4050, L100.0100 #### [facility] Laboratory [address] [place], [address] RBC/BF Normal [facility] Comment on above: Order Comment: 1 Result Comment: QNS. ONLY 1 DROP OF SAMPLE IN SYRINGE. HERIBERTO STARKEY SPOKE WITH DR. ROQUE AND DR. ROQUE SAID IF UNABLE TO DO CELL COUNT, PLEASE DO CULTURE FIRST. JSTRAUB Performed By: #### L 504.2610, L500.4050, L100.0100 #### [facility] [address] [place], [address] SOURCE/BF Normal [facility] Comment on above: Order Comment: 1 Result Comment: QNS. ONLY 1 DROP OF SAMPLE IN SYRINGE. HERIBERTO STARKEY SPOKE WITH DR. ROQUE AND DR. ROQUE SAID IF UNABLE TO DO CELL COUNT, PLEASE DO CULTURE FIRST. JSTRAUB Performed By: #### L 504.2610, L500.4050, L100.0100 #### [facility] [address] [place], [address] WBC/BF Normal [facility] Comment on above: Order Comment: 1 Result Comment: QNS. ONLY 1 DROP OF SAMPLE IN SYRINGE. HERIBERTO STARKEY SPOKE WITH DR. ROQUE AND DR. ROQUE SAID IF UNABLE TO DO CELL COUNT, PLEASE DO CULTURE FIRST. JSTRAUB Performed By: #### L 504.2610, L500.4050, L100.0100 #### [facility] [address] [place], [address] CBC W/Diff, Automatedon 04-0 -2024 Absolute Lymph 0.93 X10 3/uL Normal 0.83-4.51 [facility] Comment on above: Performed By: #### L 504.2610, L500.4050, L100.0100 #### [facility] [address] [place], [address] Absolute Neut 1.9 X10 3/uL Low 2.0-7.7 [facility] Comment on above: Performed By: #### L 504.2610, L500.4050, L100.0100 #### [facility] [address] [place], [address] Basophils/100 WBC (Bld) 0.8 % Normal 0-1 [facility] Comment on above: Performed By: #### L 504.2610, L500.4050, L100.0100 #### [facility] [address] [place], [address] Eosinophils/100 WBC (Bld) 6.2 % High 0-5 [facility] Comment on above: Performed By: #### L 504.2610, L500.4050, L100.0100 #### [facility] [address] [place], [address] Erythrocyte distribution width (RBC) [Ratio] 12.7 % Normal 11.6-14.6 [facility] Comment on above: Performed By: #### L 504.2610, L500.4050, L100.0100 #### [facility] [address] [place], [address] Hematocrit (Bld) [Volume fraction] 37.5 % Normal 37-47 [facility] Comment on above: Performed By: #### L 504.2610, L500.4050, L100.0100 #### [facility] [address] [place], [address] Hemoglobin (Bld) [Mass/Vol] 12.7 g/dL Normal 12.0-15.0 [facility] Comment on above: Performed By: #### L 504.2610, L500.4050, L100.0100 #### [facility] [address] [place], [address] IG% 0.300 Normal 0.0-0.9 [facility] Comment on above: Result Comment: IG% - Immature Granulocytes (promyelocytes, myelocytes and metamyelocytes) > 1% indicates that a LEFT SHIFT is Present. Performed By: #### L 504.2610, L500.4050, L100.0100 #### [facility] [address] [place], [address] Lymphocytes/100 WBC (Bld) 26.1 % Normal 19-41 [facility] Comment on above: Performed By: #### L 504.2610, L500.4050, L100.0100 #### [facility] [address] [place], [address] MCH (RBC) [Entitic mass] 30.5 pg Normal 27.0-32.0 [facility] Comment on above: Performed By: #### L 504.2610, L500.4050, L100.0100 #### [facility] [address] [place], [address] MCHC (RBC) [Mass/Vol] 33.9 g/dL Normal 32-36 [facility] Comment on above: Performed By: #### L 504.2610, L500.4050, L100.0100 #### [facility] [address] [place], [address] MCV (RBC) [Entitic vol] 89.9 fL Normal 81-99 [facility] Comment on above: Performed By: #### L 504.2610, L500.4050, L100.0100 #### [facility] [address] [place], [address] Monocytes/100 WBC (Bld) 12.9 % High 0-10 [facility] Comment on above: Performed By: #### L 504.2610, L500.4050, L100.0100 #### [facility] [address] [place], [address] Neutrophils/100 WBC (Bld) 53.7 % Normal 47-70 [facility] Comment on above: Performed By: #### L 504.2610, L500.4050, L100.0100 #### [facility] [address] [place], [address] Nucleated RBC (Bld) [#/Vol] 0 10*3/uL Normal 0-5 [facility] Comment on above: Performed By: #### L 504.2610, L500.4050, L100.0100 #### [facility] [address] [place], [address] Platelet mean volume (Bld) [Entitic vol] 9.0 fL Normal 6.2-12.0 [facility] Comment on above: Performed By: #### L 504.2610, L500.4050, L100.0100 #### [facility] [address] [place], [address] Platelets (Bld) [#/Vol] 230 10*3/uL Normal 150-450 [facility] Comment on above: Performed By: #### L 504.2610, L500.4050, L100.0100 #### [facility] [address] [place], [address] RBC (Bld) [#/Vol] 4.17 10*6/uL Low 4.2-5.4 [facility] Comment on above: Performed By: #### L 504.2610, L500.4050, L100.0100 #### [facility] [address] [place], [address] RDW SD 41.6 fl Normal 35.1-43.9 [facility] Comment on above: Performed By: #### L 504.2610, L500.4050, L100.0100 #### [facility] [address] [place], [address] WBC (Bld) [#/Vol] 3.6 10*3/uL Low 4.4-11.0 [facility] Comment on above: Performed By: #### L 504.2610, L500.4050, L100.0100 #### [facility] [address] [place], [address] Carbon dioxide, total [Moles /volume] in Central venous bloodOrdered By: Terrance Harrell on 01-01-2025 CO2 [Moles/Vol] 25.0 mmol/L 21.0-32.0 [facility] Chloride assayOrdered By: Navi Harrell on 01-01-2025 Chloride [Moles/Vol] 105 mmol/L 98-108 [facility] Cyst Punctureon 01-01-2025 Cyst Puncture [facility] Imaging Services [address] [place] [address] Cyst Puncture MR#: [id number] Acct: [id number] Name: LETICIA HERRERA Rep #: [id number] : 1945 F 79 From: Shubham camarillo MD PCP: Dr. Lisa Gamble, DO Status: DIS IN Study: Cyst Puncture Date of Exam: 01/01/25 Exam# [id number] Ordering Dr: Tarik Roque MD PROCEDURE: CYST PUNCTURE 01/01/2025 REASON FOR EXAM: Small fluid collection in the proximal right thigh. TECHNIQUE: Ultrasound targeted to the small fluid collection adjacent to the femoral component of the prosthetic hip. COMPARISON: Comparison is made with prior MRI examination. FINDINGS: There is a 4.6 cm x 2.4 cm 1.3 cm fluid collection adjacent to the femoral component of the prosthetic hip. The procedure as well as the benefits and possible complications including bleeding infection were explained to the patient. Informed consent was obtained. Utilizing a 22 gauge spinal needle, approximately 2 cc of blood-tinged fluid was aspirated. The patient tolerated the procedure well. US/Cyst Puncture IMPRESSION: Successful aspiration of blood-tinged thick fluid. Reading Location: [place] [address] CC: Dr. Lisa Gamble DO; Dr. Tarik Roque MD Lofter: Signed Normal [facility] Eosinophil percentageOrdered By: Koki Arriaza on 01-01-2025 Eosinophils/100 WBC (Bld) 6.2 % High 0-5 [facility] Erythrocyte distribution wid th ratioOrdered By: Koki Arriaza on 01-01-2025 Erythrocyte distribution width (RBC) [Ratio] 12.7 % 11.6-14.6 [facility] Erythrocyte distribution wid th standard deviationOrdered By: Kokichad Arriaza on 01-01-2025 Erythrocyte distribution width (RBC) [Ratio] 41.6 fl 35.1-43.9 [facility] Glomerular filtration rate ( GFR) estimation/1.73 sq m using serum, plasma, or whole bOrdered By: Terrance Harrell on 01-01-2025 GFR/1.73 sq M.predicted among non-blacks MDRD (S/P/Bld) [Vol rate/Area] 90 mL/min/{1.73_m2} >60 [facility] Comment on above: mL/min/1.73m2 CKD-EP I Creatinine Equation (2020) Gram stainOrdered By: Tarik Roque on 01-01-2025 Microscopic observation Gram stain Nom (Unsp spec) [facility] Hematocrit Auto (Bld) [Volum e fraction]Ordered By: Koki Arriaza on 01-01-2025 Hematocrit (Bld) [Volume fraction] 37.5 % 37-47 [facility] Hemoglobin measurementOrdere d By: Koki Arriaza on 01-01-2025 Hemoglobin (Bld) [Mass/Vol] 12.7 g/dL 12.0-15.0 [facility] Immature granulocytes/100 WB C Auto (Bld)Ordered By: Koki Arriaza on 01-01-2025 Immature granulocytes/100 WBC (Bld) 0.300 % 0.0-0.9 [facility] Comment on above: IG% - Immature Granu locytes (promyelocytes, myelocytes and metamyelocytes) > 1% indicates that a LEFT SHIFT is Present. Immunohistochemical Stainson 01-01-2025 Immunohistochemical Stains Patient Age/Sex Location Account Attending Physician LETICIA HERRERA 79/F MS3 [id number] Dr. Rosy Nguyen MD Specimen: [id number] Received: 01/01/25 Status: FUENTES [place] Num: [id number] Spec Type: Fluid Subm Dr: Dr. Chey Clark MD HEADER OPERATION: Ultrasound guided puncture/aspiration PRE-OP DIAGNOSIS: Left thigh cyst TISSUE SUBMITTED: A- Left thigh cyst fluid for cytology DIAGNOSIS CYTOLOGY A. Left thigh, cyst, aspiration: * No malignant cells identified. * Acute inflammation and macrophages. * IHC for pancytokeratin and CD68 were utilized in the assessment. CYTOLOGY STUDY Slides are reviewed. All matched controls reacted appropriately. These tests were developed and their performance characteristics determined by [facility]. They may not have been cleared or approved by the [place]. Food and Drug Administration. The FDA has determined that such clearance or approval is not necessary. The above immunohistochemical/ dualISH markers are ordered and reviewed by the Pathologist. CYTOLOGY GROSS A. Received is <1 ml of red-cloudy fluid labeled with the patient's name and and designated per the requisition as Left thigh cyst. Submitted for cytology preparation (cytospin x1, cellblock x1). Mr 01/04/2025 CPT: 80502 ,87451,33161 Signed (signature on file) Dr. Jeannine Morelos MD 01/12/25 1220 Normal [facility] Comment on above: Performed By: #### L 504.2610, L500.4050, L100.0100 #### [facility] [address] [place], [address] International normalized rat io (INR) calculationOrdered By: Koki Arriaza on 01-01-2025 INR Coag (Bld) [Relative time] 1.0 {INR} [facility] MCV (mean corpuscular volume ) determinationOrdered By: Koki Arriaza on 01-01-2025 MCV (RBC) [Entitic vol] 89.9 fL 81-99 [facility] Mean corpuscular hemoglobin (MCH) determinationOrdered By: Kokichad Arriaza on 01-01-2025 MCH (RBC) [Entitic mass] 30.5 pg 27.0-32.0 [facility] Mean corpuscular hemoglobin concentration (MCHC) determinationOrdered By: Kokichad Arriaza on 01-01-2025 MCHC (RBC) [Mass/Vol] 33.9 g/dL 32-36 [facility] Mean platelet volume determi nationOrdered By: Koki Arriaza on 01-01-2025 Platelet mean volume (Bld) [Entitic vol] 9.0 fL 6.2-12.0 [facility] Monocyte percentageOrdered B y: Koki Arriaza on 01-01-2025 Monocytes/100 WBC (Bld) 12.9 % High 0-10 [facility] Neutrophil percentageOrdered By: Koki Arriaza on 01-01-2025 Neutrophils/100 WBC (Bld) 53.7 % 47-70 [facility] Nucleated red blood cell per centageOrdered By: Koki Arriaza on 01-01-2025 Nucleated RBC/100 WBC (Bld) [Ratio] 0 % 0-5 [facility] Operative Reporton Operative Report [facility] Medical Records Department [address] [place] [address] Operative Report 01/01/25 1429 MR#: [id number] Acct: [id number] Name: LETICIA HERRERA Rep #: [id number] : 1945 79 From: Koki Arriaza [employer] PCP: Dr. Lisa Gamble, DO Status:ADM IN Location: TN3 [id number] Problems Associated Problem List Diagnoses (1) Hip pain, left: Multi Select Codes Radiology Radiology US Procedures: 11178 Cyst Puncture Operative Report (Standard) Operative Information Date of Procedure: 01/01/25 Pre-Operative Diagnosis: Left hip pain Post-Operative Diagnosis: Left hip pain Surgery/Procedure Performed: Ultrasound-guided fluid aspiration body shop supervisor: No Type of Anesthesia: Local Procedure Start Time: 14:25 Procedure Stop Time: 14:40 Select all DRAINS/GRAFTS/IMPLAN TS that apply: None Estimated Blood Loss: 0 Specimen collected: Yes Description of specimen(s) removed: 1 -2 cc of red-tinged fluid Description of surgery: PROCEDURE: Ultrasound-guided fluid aspiration anterior to the left distal femur ORDERING PROVIDER: Dr. Tarik Roque INDICATION: Female, 79 years old. Left hip pain. PROVIDER: STACIE Harmon CONSENT: The procedure as well as the benefits and possible complications including infection and bleeding were explained to the patient. Informed consent was obtained. Coagulation studies were reviewed preprocedure by myself and Dr. Patel who was in agreement to proceed. Plavix and Lovenox have been held. TECHNIQUE: An ultrasonographic survey was conducted of the left upper thigh. A fluid-filled pocket was identified anteriorly of the left distal femur. The patient was positioned supine. The left anterior access site was prepped with chlorhexidine and draped in sterile fashion. 2% Lidocaine was administered subcutaneously for local anesthesia. A 22-gauge spinal needle was positioned within the fluid pocket under ultrasound guidance. Approximately 1-2 cc of red fluid was aspirated. A dressing was placed on the aspiration site. The patient tolerated the procedure well. Fluid was sent to the laboratory for analysis. The procedure was proctored and assisted by interventional radiologist Dr. Patel. IMPRESSION: Successful ultrasound-guided fluid aspiration anterior to the left distal femur with removal of 1???2 cc of red colored fluid. Surgical Findings: None Complications Complications: No 01/01/25 2747 Cosigner Signature (if applicable): CC: MAGALY Arriaza; Dr. Chey Clark MD; Dr. Lisa Gamble DO; Dr. Solis Meek MD Signed Normal [facility] Partial Thromboplast Timeon 01-01-2025 aPTT Coag (Bld) [Time] 28.5 s Normal 24.1-36.2 [facility] Comment on above: Performed By: #### L 100.0100, L100.0500, L500.4050 #### [facility] [address] [place], [address] Platelet countOrdered By: Alex Arriaza on 01-01-2025 Platelets (Bld) [#/Vol] 230 10*3/uL 150-450 [facility] Potassium measurement (mass/ volume)Ordered By: Terrance Harrell on 01-01-2025 Potassium (Unsp spec) [Mass/Vol] 4.1 mmol/L 3.3-5.1 [facility] Prothrombin Time w/INRon INR Coag (PPP) [Relative time] 1.0 {INR} Normal [facility] Comment on above: Performed By: #### L 100.0100, L100.0500, L500.4050 #### [facility] [address] [place], [address] PT Coag (PPP) [Time] 13.6 s Normal 11.7-14.9 [facility] Comment on above: Performed By: #### L 100.0100, L100.0500, L500.4050 #### [facility] [address] [place], [address] Prothrombin timeOrdered By: Koki Arriaza on 01-01-2025 PT Coag (PPP) [Time] 13.6 s 11.7-14.9 [facility] RBC Auto (Bld) [#/Vol]Ordere d By: Koki Arriaza on 01-01-2025 RBC (Bld) [#/Vol] 4.17 10*6/uL Low 4.2-5.4 [facility] Serum creatinine measurement (mass/volume)Ordered By: Terrance Harrell on 01-01-2025 Creatinine [Mass/Vol] 0.68 mg/dL Low 0.70-1.20 [facility] Serum glucose measurement (m ass/volume)Ordered By: Terrance Harrell on 01-01-2025 Glucose [Mass/Vol] 196 mg/dL High 70-99 [facility] Serum or plasma calcium kavita urement (mass/volume)Ordered By: Terrance Harrell on 01-01-2025 Calcium [Mass/Vol] 9.1 mg/dL 7.6-11.0 [facility] Serum or plasma urea nitroge n measurement (mass/volume)Ordered By: Terrance Harrell on 01-01-2025 Urea nitrogen [Mass/Vol] 16 mg/dL 4-19 [facility] Sodium levelOrdered By: David Harrell on 01-01-2025 Sodium [Moles/Vol] 141 mmol/L 133-145 [facility] White blood cell (WBC) count Ordered By: Koki Arriaza on 01-01-2025 WBC (Bld) [#/Vol] 3.6 10*3/uL Low 4.4-11.0 [facility] Bedside Glucoseon 12-31-2024 FINGERSTICK GLU 240 mg/dL High 74-106 [facility] Comment on above: Result Comment: HECTOR GEMENT OF PATIENT CARE PER NURSING PROTOCOL Performed By: #### L 100.0100, L100.0500, L500.4050 #### [facility] [address] [place], [address] FINGERSTICK GLU 212 mg/dL High 74-106 [facility] Comment on above: Result Comment: HECTOR GEMENT OF PATIENT CARE PER NURSING PROTOCOL Performed By: #### L 504.2610, L500.4050, L100.0100 #### [facility] [address] [place], [address] FINGERSTICK GLU 154 mg/dL High 74-106 [facility] Comment on above: Result Comment: HECTOR GEMENT OF PATIENT CARE PER NURSING PROTOCOL Performed By: #### L 100.0100, L100.0500, L500.4050 #### [facility] [address] [place], [address] FINGERSTICK GLU 132 mg/dL High -[address] [place] [address] Comment on above: Result Comment: HECTOR GEMENT OF PATIENT CARE PER NURSING PROTOCOL Performed By: #### L 501.080 #### [facility] [address] [place], [address] Bedside Glucoseon 12-30-2024 FINGERSTICK GLU 179 mg/dL High [address] [place] [address] Comment on above: Result Comment: HECTOR GEMENT OF PATIENT CARE PER NURSING PROTOCOL Performed By: #### L 100.0100, L100.0500, L500.4050 #### [facility] [address] [place], [address] FINGERSTICK GLU 277 mg/dL High [address] [place] [address] Comment on above: Result Comment: HECTOR GEMENT OF PATIENT CARE PER NURSING PROTOCOL Performed By: #### L 100.0100, L100.0500, L500.4050 #### [facility] [address] [place], [address] FINGERSTICK GLU 174 mg/dL High -[address] [place] [address] Comment on above: Result Comment: HECTOR GEMENT OF PATIENT CARE PER NURSING PROTOCOL Performed By: #### L 100.0100, L100.0500, L500.4050 #### [facility] [address] [place], [address] FINGERSTICK GLU 154 mg/dL High [address] [place] [address] Comment on above: Result Comment: HECTOR GEMENT OF PATIENT CARE PER NURSING PROTOCOL Performed By: #### L 100.0100, L100.0500, L500.4050 #### [facility] [address] [place], [address] Bilirubin, totalOrdered By: Chey Clark on 12-30-2024 Bilirubin [Mass/Vol] 0.39 mg/dL 0.00-1.30 [facility] CBC W/Diff, Automatedon 04-0 Absolute Lymph 1.03 X10 3/uL Normal 0.83-4.51 [facility] Comment on above: Performed By: #### L 500.4050, L100.0100 #### [facility] [address] [place], [address] Absolute Neut 2.5 X10 3/uL Normal 2.0-7.7 [facility] Comment on above: Performed By: #### L 500.4050, L100.0100 #### [facility] [address] [place], [address] Basophils/100 WBC (Bld) 1.2 % High 0-1 [facility] Comment on above: Performed By: #### L 500.4050, L100.0100 #### [facility] [address] [place], [address] Eosinophils/100 WBC (Bld) 5.4 % High 0-5 [facility] Comment on above: Performed By: #### L 500.4050, L100.0100 #### [facility] [address] [place], [address] Erythrocyte distribution width (RBC) [Ratio] 12.6 % Normal 11.6-14.6 [facility] Comment on above: Performed By: #### L 500.4050, L100.0100 #### [facility] [address] [place], [address] Hematocrit (Bld) [Volume fraction] 33.5 % Low 37-47 [facility] Comment on above: Performed By: #### L 500.4050, L100.0100 #### [facility] [address] [place], [address] Hemoglobin (Bld) [Mass/Vol] 11.2 g/dL Low 12.0-15.0 [facility] Comment on above: Performed By: #### L 500.4050, L100.0100 #### [facility] [address] [place], [address] IG% 0.200 Normal 0.0-0.9 [facility] Comment on above: Result Comment: IG% - Immature Granulocytes (promyelocytes, myelocytes and metamyelocytes) > 1% indicates that a LEFT SHIFT is Present. Performed By: #### L 500.4050, L100.0100 #### [facility] [address] [place], [address] Lymphocytes/100 WBC (Bld) 24.1 % Normal 19-41 [facility] Comment on above: Performed By: #### L 500.4050, L100.0100 #### [facility] [address] [place], [address] MCH (RBC) [Entitic mass] 30.1 pg Normal 27.0-32.0 [facility] Comment on above: Performed By: #### L 500.4050, L100.0100 #### [facility] [address] [place], [address] MCHC (RBC) [Mass/Vol] 33.4 g/dL Normal 32-36 [facility] Comment on above: Performed By: #### L 500.4050, L100.0100 #### [facility] [address] [place], [address] MCV (RBC) [Entitic vol] 90.1 fL Normal 81-99 [facility] Comment on above: Performed By: #### L 500.4050, L100.0100 #### [facility] [address] [place], [address] Monocytes/100 WBC (Bld) 11.2 % High 0-10 [facility] Comment on above: Performed By: #### L 500.4050, L100.0100 #### [facility] [address] [place], [address] Neutrophils/100 WBC (Bld) 57.9 % Normal 47-70 [facility] Comment on above: Performed By: #### L 500.4050, L100.0100 #### [facility] [address] [place], [address] Nucleated RBC (Bld) [#/Vol] 0 10*3/uL Normal 0-5 [facility] Comment on above: Performed By: #### L 500.4050, L100.0100 #### [facility] [address] [place], [address] Platelet mean volume (Bld) [Entitic vol] 9.5 fL Normal 6.2-12.0 [facility] Comment on above: Performed By: #### L 500.4050, L100.0100 #### [facility] [address] [place], [address] Platelets (Bld) [#/Vol] 222 10*3/uL Normal 150-450 [facility] Comment on above: Performed By: #### L 500.4050, L100.0100 #### [facility] [address] [place], [address] RBC (Bld) [#/Vol] 3.72 10*6/uL Low 4.2-5.4 [facility] Comment on above: Performed By: #### L 500.4050, L100.0100 #### [facility] [address] [place], [address] RDW SD 41.9 fl Normal 35.1-43.9 [facility] Comment on above: Performed By: #### L 500.4050, L100.0100 #### [facility] [address] [place], [address] WBC (Bld) [#/Vol] 4.3 10*3/uL Low 4.4-11.0 [facility] Comment on above: Performed By: #### L 500.4050, L100.0100 #### [facility] [address] [place], [address] CRPon 12-30-2024 C-REACTIVE PROT 11.20 mg/L High 0.0-3.0 [facility] Comment on above: Performed By: #### L 100.0100, L100.0500, L500.4050 #### [facility] [address] [place], [address] Comprehensive Metabolic Prof ilon 12-30-2024 Albumin [Mass/Vol] 3.6 g/dL Normal 3.4-4.8 [facility] Comment on above: Performed By: #### L 500.4050, L100.0100 #### [facility] [address] [place], [address] Albumin/Globulin [Mass ratio] 1.8 {ratio} Normal 0.9-2.4 [facility] Comment on above: Performed By: #### L 500.4050, L100.0100 #### [facility] [address] [place], [address] ALK PHOS 78 U/L Normal 35-104 [facility] Comment on above: Performed By: #### L 500.4050, L100.0100 #### [facility] [address] [place], [address] ALT [Catalytic activity/Vol] 14 U/L Normal <=34 [facility] Comment on above: Performed By: #### L 500.4050, L100.0100 #### [facility] [address] [place], [address] AST [Catalytic activity/Vol] 19 U/L Normal <=31 [facility] Comment on above: Performed By: #### L 500.4050, L100.0100 #### [facility] [address] [place], [address] Bilirubin [Mass/Vol] 0.39 mg/dL Normal 0.00-1.30 [facility] Comment on above: Performed By: #### L 500.4050, L100.0100 #### [facility] [address] [place], [address] BUN/CRE 30.0 RATIO High 10-20 [facility] Comment on above: Performed By: #### L 500.4050, L100.0100 #### [facility] [address] [place], [address] Calcium [Mass/Vol] 8.8 mg/dL Normal 7.6-11.0 [facility] Comment on above: Performed By: #### L 500.4050, L100.0100 #### [facility] [address] [place], [address] Chloride [Moles/Vol] 104 mmol/L Normal 98-108 [facility] Comment on above: Performed By: #### L 500.4050, L100.0100 #### [facility] [address] [place], [address] CO2 [Moles/Vol] 25.3 mmol/L Normal 21.0-32.0 [facility] Comment on above: Performed By: #### L 500.4050, L100.0100 #### [facility] [address] [place], [address] Creatinine [Mass/Vol] 0.71 mg/dL Normal 0.70-1.20 [facility] Comment on above: Performed By: #### L 500.4050, L100.0100 #### [facility] [address] [place], [address] ECRCL 63.03 ml/min Normal 50-250 [facility] Comment on above: Performed By: #### L 500.4050, L100.0100 #### [facility] [address] [place], [address] GAP 9 Normal 5-15 [facility] Comment on above: Performed By: #### L 500.4050, L100.0100 #### [facility] [address] [place], [address] GFR/1.73 sq M.predicted among non-blacks MDRD (S/P/Bld) [Vol rate/Area] 87 mL/min/{1.73_m2} Normal >60 [facility] Comment on above: Result Comment: mL/m in/1.73m2 CKD-EPI Creatinine Equation (2020) Performed By: #### L 500.4050, L100.0100 #### [facility] [address] [place], [address] Globulin (S) [Mass/Vol] 2.0 g/dL Low 2.2-4.2 [facility] Comment on above: Performed By: #### L 500.4050, L100.0100 #### [facility] [address] [place], [address] Glucose [Mass/Vol] 165 mg/dL High 70-99 [facility] Comment on above: Performed By: #### L 500.4050, L100.0100 #### [facility] [address] [place], [address] Potassium [Moles/Vol] 4.2 mmol/L Normal 3.3-5.1 [facility] Comment on above: Performed By: #### L 500.4050, L100.0100 #### [facility] [address] [place], [address] Sodium [Moles/Vol] 138 mmol/L Normal 133-145 [facility] Comment on above: Performed By: #### L 500.4050, L100.0100 #### [facility] [address] [place], [address] T PROT 5.6 g/dL Low 5.9-8.4 [facility] Comment on above: Performed By: #### L 500.4050, L100.0100 #### [facility] [address] [place], [address] Urea nitrogen [Mass/Vol] 21 mg/dL High 4-19 [facility] Comment on above: Performed By: #### L 500.4050, L100.0100 #### [facility] [address] [place], [address] Consultation - Orthopedicson 12-30-2024 Consultation - Orthopedics [facility] Medical Records Department [address] [place] [address] Consultation - Orthopedics 12/30/24 1642 MR#: [id number] Acct: [id number] Name: LETICIA HERRERA Rep #: [id number] : 1945 79 From: Solis Meek MD PCP: Dr. Lisa Gabmle, DO Status:ADM MARTIN Location: [place] [address]264-1 HPI Consult Data Date of Consult: 12/30/24 HPI Narrative HPI Narrative: LETICIA HERRERA, is a 79 F who presents with a history of significant left hip pain onset 2024. She states that over the past months or possibly year she has had some intermittent aching pain at the left hip region. This has been random. She thinks possibly related to weather changes. She has been diagnosed with some type of neuropathy involving her lower extremities. She does have an appointment with a neurologist. She does have some weakness of her left foot reportedly told she has a foot drop. She says the pain was 8 out of 10 yesterday. She was so painful she could not move because of left hip pain. They called the emergency squad to bring her in. Her pain is now much better with pain medication. Reportedly she has not received any antibiotics. She denies fever chills nausea vomiting or weight loss. She denies any signs of infection throughout her body. No recent dental or bladder infections. Patient has had reportedly 3 left hip surgeries. These were in 2016. Most recent hip surgery was August 28, 2017. Dr. Nickerson and Dr. Roque have done her hip surgeries. She has also had back surgery in November 2015 for spinal stenosis [facility] Medical History Foot drop Loss of hearing Wears hearing aid Wears glasses Wears contact lenses Wears dentures Cancer History of steroid therapy Arthritis High cholesterol Non-smoker History of stress test History of echocardiogram Cardiology follow-up encounter PONV (postoperative nausea and vomiting) Encounter for education Depression Upper GI bleed Atherosclerosis of coronary artery of [place] heart without angina pectoris Obesity Essential (primary) hypertension GERD (gastroesophageal reflux disease) Type 2 diabetes mellitus Hyperlipidemia Home Medications ???Medication ???Instructions ???Recorded ???Last Taken ???Type aspirin 81 mg chewable tablet 81 mg PO DAILY health maintenance 12/13/17 04/18/24 History benazepril 20 mg tablet 20 mg PO DAILY blood pressure 11/2809/06/19 21:00 History rosuvastatin 5 mg tablet 5 mg PO QHS cholesterol 12/13/17 1 11/07/18 21:00 History acetaminophen 500 mg tablet 1,000 mg PO Q8 PRN pain 12/18/17 1 11/07/18 15:00 History paroxetine HCl 30 mg tablet 30 mg PO DAILY 01/26/20 04/24/24 H istory clopidogrel 75 mg tablet (Plavix) 75 mg PO QDAY #90 tabs 01/02/22 0 04/18/24 Rx dicyclomine 10 mg capsule 10 mg PO BID 05/15/22 Unknown Hist ory ascorbate calcium (vitamin C) 500 500 mg PO DAILY 06/18/23 Unknown History mg tablet mecobalamin (vitamin B12) 1,000 1,000 mcg PO DAILY 06/18/23 Unknow n History mcg chewable tablet metformin 500 mg tablet,extended 500 mg PO BID diabetes 06/18/23 Un known History release 24 hr zinc acetate 50 mg (zinc) capsule 50 mg PO DAILY 06/18/23 Unknown H istory famotidine 40 mg tablet (Pepcid) 40 mg PO DAILY 04/08/24 04/24/24 H istory insulin glargine 100 unit/mL (3 10 unit subcut QPM 04/08/24 Unknow n History mL) subcutaneous pen (Lantus Solostar U-100 Insulin) isosorbide dinitrate 10 mg tablet See Rx Instructions .Route Unknown Rx .COMPLEX #270 tabs metoprolol tartrate 25 mg tablet See Rx Instructions .Route 4 Unknown Rx .COMPLEX #180 TABLETS Allergy/AdvReac Type Severity Reaction Status Date / Time adhesive tape Allergy red, itchy Verified 12/29/24 20:13 atorvastatin (From Lipitor) Allergy myalgias Verified 12/29/24 20:13 Iodinated Contrast Media (CT) Allergy Shortness Verified 12/29/24 20:13 of breath Penicillins Allergy Rash Verified 12/29/24 20:13 pravastatin Allergy myalgias Verified 12/29/24 20:13 Family History Father COPD (chronic obstructive pulmonary disease) Myocardial infarction Mother Diabetes CAD (coronary artery disease) Hx CABG Alzheimers disease CVA (cerebral vascular accident) Brother H/O angioplasty Diabetes Brother CVA (cerebral vascular accident) Son Diabetes Surgical History History of cardiac catheterization History of coronary artery stent placement (05/26/19) History of left heart catheterization (12/07/11) Hx of appendectomy History of laminectomy History of bilateral hip replacements History of total bilateral knee replacement History of hysterectomy H/O total hip arthroplasty (more content not included)... Normal [facility] Erythrocyte Sed Rateon 12-30 SED RATE 12 mm/hr Normal 0-30 [facility] Comment on above: Performed By: #### L 100.0100, L100.0500, L500.4050 #### [facility] [address] [place], [address] Erythrocyte sedimentation ra teOrdered By: Tarik Roque on 12-30-2024 ESR (Bld) [Velocity] 12 mm/h 0-30 [facility] H AND P Exam - Hospitaliston 12-30-2024 H&P Exam - Hospitalist [facility] Medical Records Department [address] [place] [address] H P Exam - Hospitalist 12/30/24 0007 MR#: [id number] Acct: [id number] Name: LETICIA HERRERA Rep #: [id number] : 1945 79 From: Chey Clark MD PCP: Dr. Lisa Gamble, DO Status:ADM MARTIN Location: [facility] [place] [id number] HPI - General General Date of Admission: 12/30/24 Date of Service: 12/30/24 Chief Complaint: Intractable L hip pain, debility. HPI Narrative The patient is a 79 y/o F w/ PMHx: CKD stage II per GFR trending, Anxiety and Depression, Morbid obesity, HTN, HLD, GERD w/ Hx prior GI bleed, Diabetes mellitus type II, Chronic anemia/Fe deficiency anemia, CAD s/p PCI 2018, Chronic L foot drop and BL LE neuropathy following with Neurology w/ recent 11/24/24 nerve conduction studies noted to be abnormal with evidence of predominantly axonal, sensorimotor, length dependent, peripheral polyneuropathy with active denervation with recommended follow-up neuromuscular ultrasound to confirm localization of left peroneal nerve entrapment, Osteoarthritis status post bilateral total hip replacement previously, Follicular lympoma grade 3A following with Dr. 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 04/15/2024 and 05/26/2024 with resolution of throat mass and neck nodes, follow-up PET/CT 05/19/2024 with no hypermetabolic activity with continued close observation with last evaluation 10/13/2024 who presents to the [facility] ED on 12/30/2024 with history of pain to the left hip and thigh worsening today which has been ongoing reporting that she has been more active and walking more over the last 48 hours with pain more sharp and stabbing worse with weightbearing and improved with rest with chronic persistent paresthesias especially the left lower extremity with recent diagnosis of neuropathy but given ongoing persistent pain prompted ED evaluation. Currently in the ED she initially rates her pain at 8 of 10 in severity. In the ED they attempted to ambulate the patient with a walker and she was unable to do so. In the ED upon evaluation at rest post medication she denies pain but notes onset severe pain with movement attempts and any weight bearing attempts. She denies having had pain like this but less severe ongoing. She notes she has not had hip pain for nearly 5 years. Workup in the ED included T98.2, heart 71, BP 152/66, respiratory rate 16, 95% on room air, plain film of the pelvis with status post bilateral hip arthroplasty with no acute fracture, plain film of the left femur with status post left hip arthroplasty with possible loosening with no acute fracture. In the ED patient ministered morphine 4 mg IM x 1. PFSH Medical History Foot drop Loss of hearing Wears hearing aid Wears glasses Wears contact lenses Wears dentures Cancer History of steroid therapy Arthritis High cholesterol Non-smoker History of stress test History of echocardiogram Cardiology follow-up encounter PONV (postoperative nausea and vomiting) Encounter for education Depression Upper GI bleed Atherosclerosis of coronary artery of [place] heart without angina pectoris Obesity Essential (primary) hypertension GERD (gastroesophageal reflux disease) Type 2 diabetes mellitus Hyperlipidemia Home Medications ???Medication ???Instructions ???Recorded ???Last Taken ???Type aspirin 81 mg chewable tablet 81 mg PO DAILY health maintenance 12/13/17 04/18/24 History benazepril 20 mg tablet 20 mg PO DAILY blood pressure 11/2809/06/19 21:00 History rosuvastatin 5 mg tablet 5 mg PO QHS cholesterol 12/13/17 1 11/07/18 21:00 History acetaminophen 500 mg tablet 1,000 mg PO Q8 PRN pain 12/18/17 1 11/07/18 15:00 History paroxetine HCl 30 mg tablet 30 mg PO DAILY 01/26/20 04/24/24 H istory clopidogrel 75 mg tablet (Plavix) 75 mg PO QDAY #90 tabs 01/02/22 0 04/18/24 Rx Held on 04/24/24. Instructions: Resume on 04/25/24. dicyclomine 10 mg capsule 10 mg PO BID 05/15/22 Unknown Hist ory ascorbate calcium (vitamin C) 500 500 mg PO DAILY 06/18/23 Unknown History mg tablet mecobalamin (vitamin B12) 1,000 1,000 mcg PO DAILY 06/18/23 Unknow n History mcg chewable tablet metformin 500 mg tablet,extended 500 mg PO BID diabetes 06/18/23 Un known History release 24 hr zinc acetate 50 mg (zinc) capsule 50 mg PO DAILY 06/18/23 Unknown H istory famotidine 40 mg tablet (Pepcid) 80 mg PO DAILY 04/08/24 04/24/24 H istory insulin glargine 100 unit/mL (3 10 unit subcut QPM 04/08/24 Unknow n History mL) subcutaneous pen (Lantus Solostar U-100 Insulin) tramadol 50 mg tablet 50 mg PO Q6H PRN pain 3 days #5 Unknown Rx tabs isosorbide dinitrate 10 mg tablet See Rx Instructi (more content not included)... Normal [facility] - Chemistry and C hemistry - challengeOrdered By: Chey Clark on 12-30-2024 AST [Catalytic activity/Vol] 19 U/L <32 [facility] Lower Ext/No Jt/w/oon 2024 Lower Ext/No Jt/w/o [facility] Imaging Services [address] [place], [place] [address] Lower Ext/No Jt/w/o MR#: [id number] Acct: [id number] Name: LETICIA HERRERA Rep #: [id number] : 1945 F 79 From: Franco Rodriguez DO PCP: Dr. Lisa Gamble, DO Status: ADM MARTIN Study: Lower Ext/No Jt/w/o Date of Exam: 12/30/24 Exam# [id number] Ordering Dr: Tarik Roque MD CLINICAL HISTORY: Thigh pain, possible infection, previous left hip replacement. Previous surgery left hip/femur 8 years ago. Unable to bear weight. No recent injury. History of lymphoma. COMPARISON: None. TECHNIQUE: Multi planar multi sequence MR imaging of the left femur is obtained. No IV contrast given. FINDINGS: Hip arthroplasty is present. Surrounding the prosthetic components, the bones around the hip prosthesis, there is signal, contiguous with the proximal bony femoral adjacent tissues and the extra osseous soft tissues, there is abnormal hyperintense signal. Incompletely imaged at the lower extent of the exam there is abnormal appearing hyperintense T2/FLAIR signal in the distal femur medullary compartment. Normal fatty marrow normally undergoes fat saturation on the T2 fat-sat and the STIR sequence MRI/Lower Ext/No Jt/w/o IMPRESSION: Stir and T2 abnormal hyperintense signal, especially in the soft tissues surrounding the hip implant and also in the distal 3rd of the medullary compartment of the left femur. Recommend correlation with plain film and postcontrast imaging of the left femur. Consultation with infectious disease may be helpful. Reading [facility] CC: Dr. Lisa Gamble DO; Dr. Tarik Roque MD Lofter: Signed Normal [facility] Magnesiumon 12-30-2024 Magnesium [Mass/Vol] 2.0 mg/dL Normal 1.5-2.2 [facility] Comment on above: Order Comment: Comme nts: may add to ED labs Performed By: #### L 504.2610, L500.4050, L100.0100 #### [facility] [address] [place], [place], [address] Magnesium measurement (mass/ volume)Ordered By: Chey Clark on 12-30-2024 Magnesium (Unsp spec) [Mass/Vol] 2.0 mg/dL 1.5-2.2 [facility] Serum globulin measurementOr dered By: Chey Clark on 12-30-2024 Globulin (S) [Mass/Vol] 2.0 g/dL Low 2.2-4.2 [facility] Serum or plasma C reactive p rotein measurement (mass/volume)Ordered By: Tarik Roque on 12-30-2024 CRP [Mass/Vol] 11.20 mg/L High 0.0-3.0 [facility] Serum or plasma alanine fernandez otransferase (ALT) measurementOrdered By: Chey Clark on 12-30-2024 ALT [Catalytic activity/Vol] 14 U/L <35 [facility] Serum or plasma albumin kavita urement (mass/volume)Ordered By: Cehy Clark on 12-30-2024 Albumin [Mass/Vol] 3.6 g/dL 3.4-4.8 [facility] Serum or plasma albumin/glob ulin mass ratioOrdered By: Chey Amber on 12-30-2024 Albumin/Globulin [Mass ratio] 1.8 {ratio} 0.9-2.4 [facility] Serum or plasma alkaline tamir sphatase measurementOrdered By: Chey Clark on 12-30-2024 ALP [Catalytic activity/Vol] 78 U/L 35-104 [facility] Total proteinOrdered By: Ayad Clark on 12-30-2024 Protein [Mass/Vol] 5.6 g/dL Low 5.9-8.4 [facility] Emergency Department Summary on 2024 Emergency Department Summary [facility] Medical Records Department [address] [place] [address] Emergency Department Summary 12/29/24 MR#: [id number] Acct: [id number] Name: LETICIA HERRERA Rep #: [id number] : 1945 79 From: Enrique Morelos DO PCP: Dr. Lisa Gamble DO Status:REG ER Location: ED HPI History of Present Illness HPI Narrative: Patient presents with pain to her left hip and thigh that became worse today. Patient states she was doing more walking than she normally does yesterday. Patient states her pain is sharp and stabbing. Patient states it is worse with weightbearing. Patient states it is better with rest. Patient mitts to some paresthesias in her left lower extremity. Patient states she was recently diagnosed with neuropathy. The patient has had prior open reduction internal fixation of the femur and hip fracture. Patient denies any fevers or chills. Patient denies any recent trauma or injury. Chief Complaint: Lower Extremity Injury Informant: patient Onset/Context/Timing Onset: Today Context: Gradual Onset Timing: Continuous Quality of Pain: Stabbing Location: Left hip and thigh Worsened by: Weightbearing Relieved by: Rest Associated Symptoms Associated Symptoms: Positive for Parasthesia; Negative for Weakness or Loss of Funtion PFSH PFS Medical History Foot drop Loss of hearing Wears hearing aid Wears glasses Wears contact lenses Wears dentures Cancer History of steroid therapy Arthritis High cholesterol Non-smoker History of stress test History of echocardiogram Cardiology follow-up encounter PONV (postoperative nausea and vomiting) Encounter for education Depression Upper GI bleed Atherosclerosis of coronary artery of [place] heart without angina pectoris Obesity Essential (primary) hypertension GERD (gastroesophageal reflux disease) Type 2 diabetes mellitus Hyperlipidemia Home Medications ???Medication ???Instructions ???Recorded ???Last Taken ???Type aspirin 81 mg chewable tablet 81 mg PO DAILY health maintenance 12/13/17 04/18/24 History benazepril 20 mg tablet 20 mg PO DAILY blood pressure 11/2809/06/19 21:00 History rosuvastatin 5 mg tablet 5 mg PO QHS cholesterol 12/13/17 1 11/07/18 21:00 History acetaminophen 500 mg tablet 1,000 mg PO Q8 PRN pain 12/18/17 1 11/07/18 15:00 History paroxetine HCl 30 mg tablet 30 mg PO DAILY 01/26/20 04/24/24 H istory clopidogrel 75 mg tablet (Plavix) 75 mg PO QDAY #90 tabs 01/02/22 0 04/18/24 Rx Held on 04/24/24. Instructions: Resume on 04/25/24. dicyclomine 10 mg capsule 10 mg PO BID 05/15/22 Unknown Hist ory ascorbate calcium (vitamin C) 500 500 mg PO DAILY 06/18/23 Unknown History mg tablet cholecalciferol (vitamin D3) 25 25 mcg PO DAILY 06/18/23 Unknown H istory mcg (1,000 unit) capsule mecobalamin (vitamin B12) 1,000 1,000 mcg PO DAILY 06/18/23 Unknow n History mcg chewable tablet metformin 500 mg tablet,extended 500 mg PO BID diabetes 06/18/23 Un known History release 24 hr zinc acetate 50 mg (zinc) capsule 50 mg PO DAILY 06/18/23 Unknown H istory famotidine 40 mg tablet (Pepcid) 80 mg PO DAILY 04/08/24 04/24/24 H istory insulin glargine 100 unit/mL (3 10 unit subcut QPM 04/08/24 Unknow n History mL) subcutaneous pen (Lantus Solostar U-100 Insulin) tramadol 50 mg tablet 50 mg PO Q6H PRN pain 3 days #5 Unknown Rx tabs isosorbide dinitrate 10 mg tablet See Rx Instructions .Route Unknown Rx .COMPLEX #270 tabs metoprolol tartrate 25 mg tablet See Rx Instructions .Route 4 Unknown Rx .COMPLEX #180 TABLETS Allergy/AdvReac Type Severity Reaction Status Date / Time adhesive tape Allergy red, itchy Verified 12/29/24 20:13 atorvastatin (From Lipitor) Allergy myalgias Verified 12/29/24 20:13 Iodinated Contrast Media (CT) Allergy Shortness Verified 12/29/24 20:13 of breath Penicillins Allergy Rash Verified 12/29/24 20:13 pravastatin Allergy myalgias Verified 12/29/24 20:13 Family History Father COPD (chronic obstructive pulmonary disease) Myocardial infarction Mother Diabetes CAD (coronary artery disease) Hx CABG Alzheimers disease CVA (cerebral vascular accident) Brother H/O angioplasty Diabetes Brother CVA (cerebral vascular accident) Son Diabetes Surgical History History of cardiac catheterization History of coronary artery stent placement (05/26/19) History of left heart catheterization (12/07/11) Hx of appendectomy History of laminectomy History of bilateral hip replacements History of total bilateral knee replacement History of hysterectomy H/O total hip arthroplasty (more content not included)... Normal [facility] Femur Min 2 Viewson 12-30-19 Femur Min 2 Views [facility] Imaging Services [address] [place] [address] Femur Min 2 Views MR#: [id number] Acct: [id number] Name: LETICIA HERRERA Rep #: [id number] : 1945 F 79 From: Aric Quintana DO PCP: Dr. Lisa Gamble DO Status: REG ER Study: Femur Min 2 Views Date of Exam: 12/29/24 Exam# [id number] Ordering Dr: Enrique Morelos DO PROCEDURE: FEMUR MIN 2 VIEWS 2024 REASON FOR EXAM: INJURY/PAIN TECHNIQUE: 4 view(s) of the left femur. COMPARISON: None FINDINGS: Bones: Status post left hip arthroplasty with deformity of the proximal femur. There is lucency around the prosthesis, suspicious for loosening. No acute fracture is demonstrated. Joints: Normal alignment at the hip and knee. Soft tissues: Soft tissues are unremarkable. Other: RAD/Femur Min 2 Views IMPRESSION: Status post left hip arthroplasty with suspected loosening. No acute fracture. Reading Location: [facility] CC: Dr. Enrique Morelos DO; Dr. Lisa Gamble DO Lofter: Signed Normal [facility] Pelvis 1 or 2 Viewson 2024 Pelvis 1 or 2 Views [facility] Imaging Services [address] [place] [address] Pelvis 1 or 2 Views MR#: [id number] Acct: [id number] Name: LETICIA HERRERA Rep #: [id number] : 1945 F 79 From: Aric Quintana DO PCP: Dr. Lisa Gamble DO Status: REG ER Study: Pelvis 1 or 2 Views Date of Exam: 12/29/24 Exam# [id number] Ordering Dr: Enrique Morelos DO PROCEDURE: PELVIS 1 OR 2 VIEWS 2024 REASON FOR EXAM: INJURY/PAIN TECHNIQUE: 1 view(s) of the pelvis. COMPARISON: None FINDINGS: Hardware: Status post bilateral hip arthroplasties. Bones: No acute fracture. Degenerative changes of the pubic symphysis Joints: No dislocation. soft tissues: Small phleboliths. Other: RAD/Pelvis 1 or 2 Views IMPRESSION: Status post bilateral hip arthroplasty. No acute fracture. Reading Location: [facility] CC: Dr. Enrique Morelos DO; Dr. Lisa Gamble DO Lofter: Signed Normal [facility] NCS and/or EMG Patienton NCS and/or EMG Patient [facility] Pulmonary Services/Neurology [address] [place] [address] MR#: [id number] Acct: [id number] Name: LETICIA HERRERA Rep #: [id number] : 1945 78 From: Polina Howard MD Referring Dr: Carol Ann Antunez DPM Status: REG CLI Location: PSN Date: 11/24/24 Sex: F C NCS and/or EMG Patient Report Ordering Doctor: Carol Ann Antunez DATE OF SERVICE: 11/24/24 Clinical Summary: 78 year old female patient presenting with symptoms of pain in both feet. Since September, she also has developed some weakness in the left foot. She has a history of diabetes as well as bilateral kne e and hip replacements in the past but not recently. Nerve Conduction Studies Summary: All SNAP's were absent in the bilateral lower extremities. The left peroneal-EDB CMAP distal latency was prolonged with reduced amplitudes at the ankle and fibular head. The left peroneal-EDB CMAP amplitude was absent at the knee. The left peroneal motor conduction velocity was reduced at the fibular head. The left peroneal-TA CMAP distal latency was prolonged. The left tibial-AH CMAP distal latency was prolonged. The left tibial motor conduction velocity was reduced. The right tibial AH F-wave onset latency was prolonged. Needle Examination Summary: Needle examination of select muscles in the bilateral lower extremities demonstrated increased insertional activity and spontaneous activity (positive sharp waves and fibrillation potentials) in the left tibialis anterior, left peroneus longus, bilateral medial gastrocnemius, and left flexor digitorum longus muscle. There was a higher proportion of motor unit action potentials with reduced recruitment, increased amplitude, increased duration, and polyphasia in the left tibialis anterior, left medial gastrocnemius, and right flexor digitorum longus muscles. Impression: This is an abnormal bilateral lower extremity study. There is electrodiagnostic evidence of a predominantly axonal, sensorimotor, length-dependent, peripheral polyneuropathy with active denervation. 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 Recommend imaging such as neuromuscular ultrasound to confirm localization of a left peroneal nerve entrapment. Multi Select Codes Neurology Neurology Interp Codes: 02263-38 Musc test done w/n test comp (interp) (2) and 79378-30 [facility] cndj test 9-10 studies (interp) 11/24/24 1026 Date Polina Howard MD CC: CARLOTA Antunez; Dr. Polina Howard MD; Dr. Lisa Gamble DO Date Dictated: 11/24/24831 Date Transcribed: 11/24/24831 Lofter: Signed Normal [facility] Absolute lymphocyte countOrd ered By: Gladys English on 10-13-2024 Lymphocytes Auto (Unsp spec) [#/Vol] 1.19 10*3/uL 0.83-4.51 [facility] Absolute neutrophil countOrd ered By: Gladys AyalaAmador on 10-13-2024 Neutrophils (Bld) [#/Vol] 3.2 10*3/uL 2.0-7.7 [facility] Albumin to globulin ratioOrd ered By: Gladys English on 10-13-2024 Albumin/Globulin [Mass ratio] 1.4 {ratio} 0.9-2.4 [facility] Automated lymphocyte count a s percentage of total leukocytesOrdered By: Gladys English on 10-13-2024 Lymphocytes/100 WBC Auto (Unsp spec) 23.2 % 19-41 [facility] Basophil percentageOrdered B y: Gladys English on 10-13-2024 Basophils/100 WBC (Bld) 0.8 % 0-1 [facility] Bilirubin, totalOrdered By: Gladys English on 10-13-2024 Bilirubin [Mass/Vol] 0.60 mg/dL 0.20-1.00 [facility] Comment on above: For patients on eltr ombopag therapy, use of Dimension Hurley TBIL is not recommended. Blood urea nitrogen (BUN)/cr eatinine ratioOrdered By: Gladys English on 10-13-2024 Urea nitrogen/Creatinine [Mass ratio] 28.2 mg/mg High 10-20 [facility] CBC W/Diff, Automatedon 09-30 Absolute Lymph 1.19 X10 3/uL Normal 0.83-4.51 [facility] Comment on above: Performed By: #### L 504.2610, L500.4050, L100.0100 #### [facility] [address] [place], [address] Absolute Neut 3.2 X10 3/uL Normal 2.0-7.7 [facility] Comment on above: Performed By: #### L 504.2610, L500.4050, L100.0100 #### [facility] [address] [place], [address] Basophils/100 WBC (Bld) 0.8 % Normal 0-1 [facility] Comment on above: Performed By: #### L 504.2610, L500.4050, L100.0100 #### [facility] [address] [place], [address] Eosinophils/100 WBC (Bld) 4.1 % Normal 0-5 [facility] Comment on above: Performed By: #### L 504.2610, L500.4050, L100.0100 #### [facility] [address] [place], [address] Erythrocyte distribution width (RBC) [Ratio] 12.8 % Normal 11.6-14.6 [facility] Comment on above: Performed By: #### L 504.2610, L500.4050, L100.0100 #### [facility] [address] [place], [address] Hematocrit (Bld) [Volume fraction] 36.4 % Low 37-47 [facility] Comment on above: Performed By: #### L 504.2610, L500.4050, L100.0100 #### [facility] [address] [place], [address] Hemoglobin (Bld) [Mass/Vol] 11.9 g/dL Low 12.0-15.0 [facility] Comment on above: Performed By: #### L 504.2610, L500.4050, L100.0100 #### [facility] [address] [place], [address] IG% 0.200 Normal 0.0-0.9 [facility] Comment on above: Result Comment: IG% - Immature Granulocytes (promyelocytes, myelocytes and metamyelocytes) > 1% indicates that a LEFT SHIFT is Present. Performed By: #### L 504.2610, L500.4050, L100.0100 #### [facility] [address] [place], [address] Lymphocytes/100 WBC (Bld) 23.2 % Normal 19-41 [facility] Comment on above: Performed By: #### L 504.2610, L500.4050, L100.0100 #### [facility] [address] [place], [address] MCH (RBC) [Entitic mass] 30.1 pg Normal 27.0-32.0 [facility] Comment on above: Performed By: #### L 504.2610, L500.4050, L100.0100 #### [facility] [address] [place], [address] MCHC (RBC) [Mass/Vol] 32.7 g/dL Normal 32-36 [facility] Comment on above: Performed By: #### L 504.2610, L500.4050, L100.0100 #### [facility] [address] [place], [address] MCV (RBC) [Entitic vol] 91.9 fL Normal 81-99 [facility] Comment on above: Performed By: #### L 504.2610, L500.4050, L100.0100 #### [facility] [address] [place], [address] Monocytes/100 WBC (Bld) 9.6 % Normal 0-10 [facility] Comment on above: Performed By: #### L 504.2610, L500.4050, L100.0100 #### [facility] [address] [place], [address] Neutrophils/100 WBC (Bld) 62.1 % Normal 47-70 [facility] Comment on above: Performed By: #### L 504.2610, L500.4050, L100.0100 #### [facility] [address] [place], [address] Nucleated RBC (Bld) [#/Vol] 0 10*3/uL Normal 0-5 [facility] Comment on above: Performed By: #### L 504.2610, L500.4050, L100.0100 #### [facility] [address] [place], [address] Platelet mean volume (Bld) [Entitic vol] 9.5 fL Normal 6.2-12.0 [facility] Comment on above: Performed By: #### L 504.2610, L500.4050, L100.0100 #### [facility] [address] [place], [address] Platelets (Bld) [#/Vol] 239 10*3/uL Normal 150-450 [facility] Comment on above: Performed By: #### L 504.2610, L500.4050, L100.0100 #### [facility] [address] [place], [address] RBC (Bld) [#/Vol] 3.96 10*6/uL Low 4.2-5.4 [facility] Comment on above: Performed By: #### L 504.2610, L500.4050, L100.0100 #### [facility] [address] [place], [address] RDW SD 43.2 fl Normal 35.1-43.9 [facility] Comment on above: Performed By: #### L 504.2610, L500.4050, L100.0100 #### [facility] [address] [place], [address] WBC (Bld) [#/Vol] 5.1 10*3/uL Normal 4.4-11.0 [facility] Comment on above: Performed By: #### L 504.2610, L500.4050, L100.0100 #### [facility] [address] [place], [address] Carbon dioxide measurementOr dered By: Gladys English on 10-13-2024 CO2 [Moles/Vol] 30.0 mmol/L 21.0-32.0 [facility] Chloride measurementOrdered By: Gladys English on 10-13-2024 Chloride [Moles/Vol] 104 mmol/L 98-107 [facility] Comprehensive Metabolic Prof ilon 10-13-2024 Albumin [Mass/Vol] 3.6 g/dL Normal 3.2-5.0 [facility] Comment on above: Order Comment: 1 Performed By: #### L 504.2610, L500.4050, L100.0100 #### [facility] [address] [place], [address] Albumin/Globulin [Mass ratio] 1.4 {ratio} Normal 0.9-2.4 [facility] Comment on above: Order Comment: 1 Performed By: #### L 504.2610, L500.4050, L100.0100 #### [facility] [address] [place], [address] ALK P 89 U/L Normal 45-117 [facility] Comment on above: Order Comment: 1 Performed By: #### L 504.2610, L500.4050, L100.0100 #### [facility] [address] [place], [address] ALT [Catalytic activity/Vol] 19 U/L Normal 13-56 [facility] Comment on above: Order Comment: 1 Performed By: #### L 504.2610, L500.4050, L100.0100 #### [facility] [address] [place], [address] AST [Catalytic activity/Vol] 15 U/L Normal 15-37 [facility] Comment on above: Order Comment: 1 Performed By: #### L 504.2610, L500.4050, L100.0100 #### [facility] [address] [place], [address] Bilirubin [Mass/Vol] 0.60 mg/dL Normal 0.20-1.00 [facility] Comment on above: Order Comment: 1 Result Comment: For patients on eltrombopag therapy, use of Dimension Hurley TBIL is not recommended. Performed By: #### L 504.2610, L500.4050, L100.0100 #### [facility] [address] [place], [address] BUN/CRE 28.2 RATIO High 10-20 [facility] Comment on above: Order Comment: 1 Performed By: #### L 504.2610, L500.4050, L100.0100 #### [facility] [address] [place], [address] CA,Total 8.6 mg/dL Normal 8.5-10.1 [facility] Comment on above: Order Comment: 1 Performed By: #### L 504.2610, L500.4050, L100.0100 #### [facility] [address] [place], [address] Chloride [Moles/Vol] 104 mmol/L Normal 98-107 [facility] Comment on above: Order Comment: 1 Performed By: #### L 504.2610, L500.4050, L100.0100 #### [facility] [address] [place], [address] CO2 [Moles/Vol] 30.0 mmol/L Normal 21.0-32.0 [facility] Comment on above: Order Comment: 1 Performed By: #### L 504.2610, L500.4050, L100.0100 #### [facility] [address] [place], [address] Creatinine [Mass/Vol] 0.89 mg/dL Normal 0.55-1.02 [facility] Comment on above: Order Comment: 1 Result Comment: The validity of the calculated GFR GFRAA in patients over 70 years has not been determined. Clinical correlation is essential. Performed By: #### L 504.2610, L500.4050, L100.0100 #### [facility] [address] [place], [address] ECRCL 56.66 ml/min Normal [facility] Comment on above: Order Comment: 1 Performed By: #### L 504.2610, L500.4050, L100.0100 #### [facility] [address] [place], [address] EST GFR - AA 79 mL/min Normal >60 [facility] Comment on above: Order Comment: 1 Result Comment: Afri can Vincentian GFR Calc Performed By: #### L 504.2610, L500.4050, L100.0100 #### [facility] [address] [place], [address] GAP 4 Low 5-15 [facility] Comment on above: Order Comment: 1 Performed By: #### L 504.2610, L500.4050, L100.0100 #### [facility] [address] [place], [address] GFR/1.73 sq M.predicted among non-blacks MDRD (S/P/Bld) [Vol rate/Area] 66 mL/min/{1.73_m2} Normal >60 [facility] Comment on above: Order Comment: 1 Result Comment: Non- GFR Calc Performed By: #### L 504.2610, L500.4050, L100.0100 #### [facility] [address] [place], [address] Globulin (S) [Mass/Vol] 2.6 g/dL Normal 2.2-4.2 [facility] Comment on above: Order Comment: 1 Performed By: #### L 504.2610, L500.4050, L100.0100 #### [facility] [address] [place], [address] Glucose [Mass/Vol] 247 mg/dL High 74-106 [facility] Comment on above: Order Comment: 1 Result Comment: Gluc ose result greater than or equal to 200 mg/dL suggests DIABETES MELLITUS per A.D.A. criteria. Performed By: #### L 504.2610, L500.4050, L100.0100 #### [facility] [address] [place], [address] Potassium [Moles/Vol] 4.3 mmol/L Normal 3.5-5.1 [facility] Comment on above: Order Comment: 1 Performed By: #### L 504.2610, L500.4050, L100.0100 #### [facility] [address] [place], [address] Sodium [Moles/Vol] 137 mmol/L Normal 136-145 [facility] Comment on above: Order Comment: 1 Performed By: #### L 504.2610, L500.4050, L100.0100 #### [facility] [address] [place], [address] T PROT 6.2 g/dL Low 6.4-8.2 [facility] Comment on above: Order Comment: 1 Performed By: #### L 504.2610, L500.4050, L100.0100 #### [facility] [address] [place], [address] Urea nitrogen [Mass/Vol] 25 mg/dL High 7-18 [facility] Comment on above: Order Comment: 1 Performed By: #### L 504.2610, L500.4050, L100.0100 #### [facility] [address] [place], [address] Eosinophil percentageOrdered By: Gladys English on 10-13-2024 Eosinophils/100 WBC (Bld) 4.1 % 0-5 [facility] Erythrocyte distribution wid th ratioOrdered By: Gladys English on 10-13-2024 Erythrocyte distribution width (RBC) [Ratio] 12.8 % 11.6-14.6 [facility] Erythrocyte distribution wid th standard deviationOrdered By: Gladys English on 10-13-2024 Erythrocyte distribution width (RBC) [Entitic vol] 43.2 fL 35.1-43.9 [facility] Erythrocyte distribution width (RBC) [Ratio] 43.2 fl 35.1-43.9 [facility] Estimated glomerular filtrat ion rate (GFR) AmericanOrdered By: Gladys English on 10-13-2024 Estimated GFR (MDRD) Amer 79 mL/min >60 [facility] Comment on above: GFR Calc Estimation of creatinine kaiden aranceOrdered By: Gladys English on 10-13-2024 Estimated Creatinine Clearance Calc 56.66 ml/min [facility] Glomerular filtration rate ( GFR) estimationOrdered By: Gladys English on 10-13-2024 Estimated GFR (MDRD) Non-Af Amer 66 mL/min >60 [facility] Comment on above: Non- GFR Calc GFR/1.73 sq M.predicted among non-blacks MDRD (S/P/Bld) [Vol rate/Area] 66 mL/min/{1.73_m2} >60 [facility] Comment on above: Non- GFR Calc Glucose measurementOrdered B y: Gladys English on 10-13-2024 Glucose [Mass/Vol] 247 mg/dL High 74-106 [facility] Comment on above: Glucose result great er than or equal to 200 mg/dLsuggests DIABETES MELLITUS per A.D.A. criteria. Hematocrit Auto (Bld) [Volum e fraction]Ordered By: Gladys English on 10-13-2024 Hematocrit (Bld) [Volume fraction] 36.4 % Low 37-47 [facility] Hemoglobin measurementOrdere d By: Gladys English on 10-13-2024 Hemoglobin (Bld) [Mass/Vol] 11.9 g/dL Low 12.0-15.0 [facility] Immature granulocytes/100 WB C Auto (Bld)Ordered By: Gladys English on 10-13-2024 Immature granulocytes/100 WBC (Bld) 0.200 % 0.0-0.9 [facility] Comment on above: IG% - Immature Granu locytes (promyelocytes, myelocytes and metamyelocytes) > 1% indicates that a LEFT SHIFT is Present. LDHon 10-13-2024 LDH 154 U/L Normal 84-246 [facility] Comment on above: Order Comment: 1 Performed By: #### L 504.2610, L500.4050, L100.0100 #### [facility] [address] [place], [address] Laboratory - Chemistry and C hemistry - challengeOrdered By: Gladys English on 10-13-2024 AST [Catalytic activity/Vol] 15 U/L 15-37 [facility] Lactate dehydrogenase (LDH) measurementOrdered By: Gladys English on 10-13-2024 LDH [Catalytic activity/Vol] 154 U/L 84-246 [facility] Lymphocytes Auto (Unsp spec) [#/Vol]Ordered By: Gladys English on 10-13-2024 Lymphocytes (Bld) [#/Vol] 1.19 10*3/uL 0.83-4.51 [facility] Lymphocytes/100 WBC Auto (Un sp spec)Ordered By: Gladys English on 10-13-2024 Lymphocytes/100 WBC (Bld) 23.2 % 19-41 [facility] MCV (mean corpuscular volume ) determinationOrdered By: Gladys English on 10-13-2024 MCV (RBC) [Entitic vol] 91.9 fL 81-99 [facility] Mean corpuscular hemoglobin (MCH) determinationOrdered By: Gladys English on 10-13-2024 MCH (RBC) [Entitic mass] 30.1 pg 27.0-32.0 [facility] Mean corpuscular hemoglobin concentration (MCHC) determinationOrdered By: Gladys English on 10-13-2024 MCHC (RBC) [Mass/Vol] 32.7 g/dL 32-36 [facility] Mean platelet volume determi nationOrdered By: Gladys English on 10-13-2024 Platelet mean volume (Bld) [Entitic vol] 9.5 fL 6.2-12.0 [facility] Monocyte percentageOrdered B y: Gladys English on 10-13-2024 Monocytes/100 WBC (Bld) 9.6 % 0-10 [facility] Neutrophil percentageOrdered By: Gladys English on 10-13-2024 Neutrophils/100 WBC (Bld) 62.1 % 47-70 [facility] Nucleated red blood cell per centageOrdered By: Gladys English on 10-13-2024 Nucleated RBC/100 WBC (Bld) [Ratio] 0 % 0-5 [facility] Oncology Visit Reporton 09-30 Oncology Visit Report [facility] [place] [facility] [address] [place] [id number] OFFICE VISIT Date of Service: 10/13/24 1356 MR#: [id number] Acct: [id number] Name: LETICIA HERRERA Rep #: [id number] : 1945 From: Edenilson Campoverde MD Age/Sex: 78/F Location[place] [facility] [place] [place] Status: Signed HPI Subjective Date of Service 10/13/24 Chief Complaint F/u for Follicular lymphoma. History of Present Illness 78-year-old woman was found to have a nasopharyngeal mass. He was referred to CT of the neck on 03/05/2024 showed large soft tissue mass centered in the left nasopharynx extending into the right nasopharynx extending inferiorly to the left oropharynx with lymphadenopathy throughout the left side of the neck. She had biopsy of the nasopharyngeal mass on 03/17/2024. 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 PET/CT obtained April 07, 2024 showed hypermetabolic activity bilateral lateral and anterior neck, left axillary region, left inguinal lymph node basins. Screening for hepatitis B and C negative. Got Bendamustine and Rituxan from 04/15/2024 to 05/26/2024 x 3cycles.. PET/CT performed 05/19/2024 demonstrated complete metabolic response. She is on observation. Come for follow up. Feels well. [facility] Medical History Loss of hearing Wears hearing aid Wears glasses Wears contact lenses Wears dentures Cancer History of steroid therapy Arthritis High cholesterol Non-smoker History of stress test History of echocardiogram Cardiology follow-up encounter PONV (postoperative nausea and vomiting) Encounter for education Depression Upper GI bleed Atherosclerosis of coronary artery of [place] heart without angina pectoris Obesity Essential (primary) hypertension GERD (gastroesophageal reflux disease) Type 2 diabetes mellitus Hyperlipidemia Surgical History History of cardiac catheterization History of coronary artery stent placement (05/26/19) History of left heart catheterization (12/07/11) Hx of appendectomy History of laminectomy History of bilateral hip replacements History of total bilateral knee replacement History of hysterectomy H/O total hip arthroplasty Family History Father COPD (chronic obstructive pulmonary disease) Myocardial infarction Mother Diabetes CAD (coronary artery disease) Hx CABG Alzheimers disease CVA (cerebral vascular accident) Brother H/O angioplasty Diabetes Brother CVA (cerebral vascular accident) Son Diabetes Social History Smoking Status: Never smoker alcohol intake: never substance use type: does not use diet: diabetic caffeine: Yes Type: coffee Number of servings: 3 what type of physical activity do you participate in: other details: PT frequency: 3-4 times per week duration: 30-45 minutes/day seatbelt use: always do you feel safe at home: Yes ROS Constitutional Constitutional: Reports systems reviewed and no addt'l complaints, except as documented Eyes Eyes: Reports systems reviewed and no addt'l complaints, except as documented ENT HEENT: Reports systems reviewed and no addt'l complaints, except as documented Cardiovascular Cardiovascular: Reports systems reviewed and no addt'l complaints, except as documented Respiratory/Chest Respiratory/Chest: Reports systems reviewed and no addt'l complaints, except as documented Gastrointestinal Gastrointestinal: Reports systems reviewed and no addt'l complaints, except as documented Genitourinary Genitourinary: Reports systems reviewed and no addt'l complaints, except as documented Musculoskeletal Musculoskeletal: Reports systems reviewed and no addt'l complaints, except as documented Integumentary Integumentary: Reports systems reviewed and no addt'l complaints, except as documented Neurologic Neurologic: Reports systems reviewed and no addt'l complaints, except as documented Psychiatric Psychiatric: Reports systems reviewed and no addt'l complaints, except as documented Endocrine Endocrinology: Reports systems reviewed and no addt'l complaints, except as documented Hematologic/Lymphati c Hematologic/Lymphati c: Reports systems reviewed and no addt'l complaints, except as documented Allergic/Immunologic Allergic/Immunologic : Reports systems reviewed and no addt'l complaints, except as documented Intake Vital Signs 07/21/24 09:47 10/13/24 13:57 Height 5 ft 2.5 in 5 ft 2.5 in Weight: 94.574 kg BMI 37.5 BP 126/62 H Blood Pressure Location Lt brachial Position Sitting Respiration 18 Pulse 72 Pulse Source Monitor Temp 98.3 F Temperature Source Temporal Artery Pulse Oximetry (%) 97 (more content not included)... Normal [facility] Platelet countOrdered By: Ernesto English on 10-13-2024 Platelets (Bld) [#/Vol] 239 10*3/uL 150-450 [facility] Potassium measurementOrdered By: Gladys English on 10-13-2024 Potassium [Moles/Vol] 4.3 mmol/L 3.5-5.1 [facility] RBC Auto (Bld) [#/Vol]Ordere d By: Gladys English on 10-13-2024 RBC (Bld) [#/Vol] 3.96 10*6/uL Low 4.2-5.4 [facility] Serum anion gap measurementO rdered By: Gladys English on 10-13-2024 Anion gap [Moles/Vol] 4 mmol/L Low 5-15 [facility] Serum globulin measurementOr dered By: Gladys English on 10-13-2024 Globulin (S) [Mass/Vol] 2.6 g/dL 2.2-4.2 [facility] Serum or plasma alanine fernandez otransferase (ALT) measurementOrdered By: Gladys English on 10-13-2024 ALT [Catalytic activity/Vol] 19 U/L 13-56 [facility] Serum or plasma albumin kavita urement (mass/volume)Ordered By: Gladys English on 10-13-2024 Albumin [Mass/Vol] 3.6 g/dL 3.2-5.0 [facility] Serum or plasma alkaline tamir sphatase measurementOrdered By: Gladys English on 10-13-2024 ALP [Catalytic activity/Vol] 89 U/L 45-117 [facility] Serum or plasma calcium kavita urement (mass/volume)Ordered By: Gladys English on 10-13-2024 Calcium [Mass/Vol] 8.6 mg/dL 8.5-10.1 [facility] Serum or plasma creatinine m easurement (mass/volume)Ordered By: Gladys English on 10-13-2024 Creatinine [Mass/Vol] 0.89 mg/dL 0.55-1.02 [facility] Comment on above: The validity of the calculated GFR & GFRAA in patients over 70 years has not been determined. Clinical correlation is essential. Serum or plasma urea nitroge n measurement (mass/volume)Ordered By: Gladys English on 10-13-2024 Urea nitrogen [Mass/Vol] 25 mg/dL High 7-18 [facility] Sodium levelOrdered By: Gladys English on 10-13-2024 Sodium [Moles/Vol] 137 mmol/L 136-145 [facility] Total proteinOrdered By: Sahrda English on 10-13-2024 Protein [Mass/Vol] 6.2 g/dL Low 6.4-8.2 [facility] White blood cell (WBC) count Ordered By: Gladys English on 10-13-2024 WBC (Bld) [#/Vol] 5.1 10*3/uL 4.4-11.0 [facility] Cardiology Visit Reporton Cardiology Visit Report [facility] [address] [place] [address] OFFICE VISIT Date of Service: 08/12/24 MR#: [id number] Acct: [id number] Name: LETICIA HERRERA Rep #: [id number] : 1945 Provider: MAGALY flynn Age/Sex: 78/F [place] [facility] [place] Status: Signed HPI HPI History of Present Illness Details: LETICIA HERRERA, is a 78 F who presents for an office visit. She is a lady with a history of coronary artery disease, hypertension, hyperlipidemia. As you remember she was noted to have an elevated calcium score. It appears that the calcium score at this time had a higher Agatston score of 1600 in the right coronary artery. The total Agatston score was over 2600. She underwent a cardiac catheterization in April 2019 which demonstrated mild calcification in the left main coronary artery, left anterior descending artery was 75% proximal stenosis in the 70% mid LAD stenosis. The circumflex artery had an 85% stenosis. The right coronary artery was severely calcified with luminal irregularities. She underwent a drug-eluting stent placed to the first obtuse marginal branch in the left anterior descending artery. She denies chest, arm, jaw, or neck discomfort. She denies palpitations. She denies bilateral lower extremity edema with left more than right. She denies claudication. She states shortness of breath with activity such as over doing. He denies this with ADLs or worsening. She denies shortness of breath at rest, orthopnea, or PND. She denies chronic cough. She denies significant, sudden weight gain. She denies lightheadedness, dizziness, near-syncope, or syncope. She denies blood in urine, blood in stool, or epistaxis. He denies fever with chills. She denies myalgia. She acknowledges weakness and fatigue. Her exercise level has remained stable though limited due to knee pain and neuropathy. 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 Accompanied by: Self Is patient in pain?: No Allergies adhesive tape Allergy (Verified 08/12/24 12:54) red, itchy atorvastatin (From Lipitor) Allergy (Verified 08/12/24 12:54) myalgias Iodinated Contrast Media (CT) Allergy (Verified 08/12/24 12:54) Shortness of breath Penicillins Allergy (Verified 08/12/24 12:54) Rash pravastatin Allergy (Verified 08/12/24 12:54) myalgias Medications ???Medication ???Instructions ???Recorded ???Confirmed ???Type aspirin 81 mg chewable tablet 81 mg PO DAILY health maintenance 12/13/17 08/12/24 History benazepril 20 mg tablet 20 mg PO DAILY blood pressure 12/13/17 08/12/24 History rosuvastatin 5 mg tablet 5 mg PO QHS cholesterol 12/13/17 08/12/24 History acetaminophen 500 mg tablet 1,000 mg PO Q8 PRN pain 12/18/17 08/12/24 History paroxetine HCl 30 mg tablet 30 mg PO DAILY 01/26/20 08/12/24 History clopidogrel 75 mg tablet (Plavix) 75 mg PO QDAY #90 tabs 01/02/22 08/12/24 Rx dicyclomine 10 mg capsule 10 mg PO BID 05/15/22 08/12/24 History ascorbate calcium (vitamin C) 500 500 mg PO DAILY 06/18/23 08/12/24 History mg tablet cholecalciferol (vitamin D3) 25 25 mcg PO DAILY 06/18/23 08/12/24 History mcg (1,000 unit) capsule mecobalamin (vitamin B12) 1,000 1,000 mcg PO DAILY 06/18/23 08/12/24 History mcg chewable tablet metformin 500 mg tablet,extended 500 mg PO BID diabetes 06/18/23 08/12/24 History release 24 hr zinc acetate 50 mg (zinc) capsule 50 mg PO DAILY 06/18/23 08/12/24 History famotidine 40 mg tablet (Pepcid) 80 mg PO DAILY 04/08/24 08/12/24 History insulin glargine 100 unit/mL (3 10 unit subcut QPM 04/08/24 08/12/24 History mL) subcutaneous pen (Lantus Solostar U-100 Insulin) tramadol 50 mg tablet 50 mg PO Q6H PRN pain 3 days #5 04/24/24 08/12/24 Rx tabs isosorbide dinitrate 10 mg tablet See Rx Instructions .Route 05/14/24 08/12/24 Rx .COMPLEX #270 tabs metoprolol tartrate 25 mg tablet See Rx Instructions .Route 05/18/24 08/12/24 Rx .COMPLEX #180 TABLETS Have you fallen in the past year?: No PFSH Medical History Loss of hearing Wears hearing aid Wears glasses Wears contact lenses Wears dentures Cancer History of steroid therapy Arthritis High cholesterol Non-smoker History of stress test History of echocardiogram Cardiology follow-up encounter PONV (postoperative nausea and vomiting) Encounter for education Depression Upper GI bleed Atherosclerosis of coronary (more content not included)... Normal [facility] CBC W/Diff, Automatedon 10-2 Absolute Lymph 1.40 X10 3/uL Normal 0.83-4.51 [facility] Comment on above: Performed By: #### L 100.0100, L100.0500, L500.4050 #### [facility] [address] [place], [place], [id number] Absolute Neut 3.4 X10 3/uL Normal 2.0-7.7 [facility] Comment on above: Performed By: #### L 100.0100, L100.0500, [id number] #### [facility] [address] [place], [address] Basophils/100 WBC (Bld) 0.8 % Normal 0-1 [facility] Comment on above: Performed By: #### L 100.0100, L100.0500, L500.4050 #### [facility] [address] [place], [address] Eosinophils/100 WBC (Bld) 11.2 % High 0-5 [facility] Comment on above: Performed By: #### L 100.0100, L100.0500, L500.4050 #### [facility] [address] [place], [address] IG% 0.200 Normal 0.0-0.9 [facility] Comment on above: Result Comment: IG% - Immature Granulocytes (promyelocytes, myelocytes and metamyelocytes) > 1% indicates that a LEFT SHIFT is Present. Performed By: #### L 100.0100, L100.0500, L500.4050 #### [facility] [address] [place], [address] Lymphocytes/100 WBC (Bld) 23.0 % Normal 19-41 [facility] Comment on above: Performed By: #### L 100.0100, L100.0500, [id number] #### [facility] [address] [place], [address] Monocytes/100 WBC (Bld) 9.7 % Normal 0-10 [facility] Comment on above: Performed By: #### L 100.0100, L100.0500, [id number] #### [facility] [address] [place], [address] Neutrophils/100 WBC (Bld) 55.1 % Normal 47-70 [facility] Comment on above: Performed By: #### L 100.0100, L100.0500, [id number] #### [facility] [address] [place], [address] Nucleated RBC (Bld) [#/Vol] 0 10*3/uL Normal 0-5 [facility] Comment on above: Performed By: #### L 100.0100, L100.0500, L500.4050 #### [facility] [address] [place], [address] Absolute Neut Normal 2.0-7.7 [facility] Comment on above: Order Comment: PLEAS E ADD LDH, IRON AND DIFF TO CBC FROM THE LABS DONE ON07 21 24 Result Comment: DIFF ADDED TO H131 07/21/24 ORDER. Performed By: #### L 100.0100, L100.0500, L500.4050 #### [facility] [address] [place], [address] HCT Normal 37-47 [facility] Comment on above: Order Comment: PLEAS E ADD LDH, IRON AND DIFF TO CBC FROM THE LABS DONE ON07 21 24 Result Comment: DIFF ADDED TO H131 07/21/24 ORDER. Performed By: #### L 100.0100, L100.0500, L500.4050 #### [facility] [address] [place], [address] HGB Normal 12.0-15.0 [facility] Comment on above: Order Comment: PLEAS E ADD LDH, IRON AND DIFF TO CBC FROM THE LABS DONE ON07 21 24 Result Comment: DIFF ADDED TO H131 07/21/24 ORDER. Performed By: #### L 100.0100, L100.0500, [id number] #### [facility] [address] [place], [address] MCH Normal 27.0-32.0 [facility] Comment on above: Order Comment: PLEAS E ADD LDH, IRON AND DIFF TO CBC FROM THE LABS DONE ON07 21 24 Result Comment: DIFF ADDED TO H131 07/21/24 ORDER. Performed By: #### L 100.0100, L100.0500, L500.4050 #### [facility] [address] [place], [address] MCHC Normal 32-36 [facility] Comment on above: Order Comment: PLEAS E ADD LDH, IRON AND DIFF TO CBC FROM THE LABS DONE ON07 21 24 Result Comment: DIFF ADDED TO H107/21/24 ORDER. Performed By: #### L 100.0100, L100.0500, L500.4050 #### [facility] [address] [place], [address] MCV Normal 81-99 [facility] Comment on above: Order Comment: PLEAS E ADD LDH, IRON AND DIFF TO CBC FROM THE LABS DONE ON07 21 24 Result Comment: DIFF ADDED TO H107/21/24 ORDER. Performed By: #### L 100.0100, L100.0500, L500.4050 #### [facility] [address] [place], [address] NEUT% Normal 47-70 [facility] Comment on above: Order Comment: PLEAS E ADD LDH, IRON AND DIFF TO CBC FROM THE LABS DONE ON07 21 24 Result Comment: DIFF ADDED TO 07/21/24 ORDER. Performed By: #### L 100.0100, L100.0500, L500.4050 #### [facility] [address] [place], [address] PLT Normal 150-450 [facility] Comment on above: Order Comment: PLEAS E ADD LDH, IRON AND DIFF TO CBC FROM THE LABS DONE ON07 21 24 Result Comment: DIFF ADDED TO H107/21/24 ORDER. Performed By: #### L 100.0100, L100.0500, [id number] #### [facility] [address] [place], [address] RBC Normal 4.2-5.4 [facility] Comment on above: Order Comment: PLEAS E ADD LDH, IRON AND DIFF TO CBC FROM THE LABS DONE ON07 21 24 Result Comment: DIFF ADDED TO H131 07/21/24 ORDER. Performed By: #### L 100.0100, L100.0500, L500.4050 #### [facility] [address] [place], [address] RDW CV Normal 11.6-14.6 [facility] Comment on above: Order Comment: PLETAMIE Jurado ADD LDH, IRON AND DIFF TO CBC FROM THE LABS DONE ON07 21 24 Result Comment: DIFF ADDED TO H131 07/21/24 ORDER. Performed By: #### L 100.0100, L100.0500, L500.4050 #### [facility] [address] [place], [address] RDW SD Normal 35.1-43.9 [facility] Comment on above: Order Comment: ARACELI Jurado ADD LDH, IRON AND DIFF TO CBC FROM THE LABS DONE ON07 21 24 Result Comment: DIFF ADDED TO [facility] 07/21/24 ORDER. Performed By: #### L 100.0100, L100.0500, L500.4050 #### [facility] [address] [place], [address] WBC Normal 4.4-11.0 [facility] Comment on above: Order Comment: ARACELI Jurado ADD LDH, IRON AND DIFF TO CBC FROM THE LABS DONE ON07 21 24 Result Comment: DIFF ADDED TO H131 07/21/24 ORDER. Performed By: #### L 100.0100, L100.0500, L500.4050 #### [facility] [address] [place], [address] CBC-Complete Blood Cnt No Di ffon 07-21-2024 Erythrocyte distribution width (RBC) [Ratio] 15.8 % High 11.6-14.6 [facility] Comment on above: Performed By: #### L 100.0100, L100.0500, L500.4050 #### [facility] [address] [place], [address] Hematocrit (Bld) [Volume fraction] 36.9 % Low 37-47 [facility] Comment on above: Performed By: #### L 100.0100, L100.0500, L500.4050 #### [facility] [address] [place], [address] Hemoglobin (Bld) [Mass/Vol] 12.0 g/dL Normal 12.0-15.0 [facility] Comment on above: Performed By: #### L 100.0100, L100.0500, L500.4050 #### [facility] [address] [place], [address] MCH (RBC) [Entitic mass] 30.0 pg Normal 27.0-32.0 [facility] Comment on above: Performed By: #### L 100.0100, L100.0500, L500.4050 #### [facility] [address] [place], [address] MCHC (RBC) [Mass/Vol] 32.5 g/dL Normal 32-36 [facility] Comment on above: Performed By: #### L 100.0100, L100.0500, L500.4050 #### [facility] [address] [place], [address] MCV (RBC) [Entitic vol] 92.3 fL Normal 81-99 [facility] Comment on above: Performed By: #### L 100.0100, L100.0500, L500.4050 #### [facility] [address] [place], [address] Platelet mean volume (Bld) [Entitic vol] 9.4 fL Normal 6.2-12.0 [facility] Comment on above: Performed By: #### L 100.0100, L100.0500, L500.4050 #### [facility] [address] [place], [address] Platelets (Bld) [#/Vol] 255 10*3/uL Normal 150-450 [facility] Comment on above: Performed By: #### L 100.0100, L100.0500, L500.4050 #### [facility] [address] [place], [address] RBC (Bld) [#/Vol] 4.00 10*6/uL Low 4.2-5.4 [facility] Comment on above: Performed By: #### L 100.0100, L100.0500, L500.4050 #### [facility] [address] [place], [address] RDW SD 53.6 fl High 35.1-43.9 [facility] Comment on above: Performed By: #### L 100.0100, L100.0500, L500.4050 #### [facility] [address] [place], [address] WBC (Bld) [#/Vol] 6.1 10*3/uL Normal 4.4-11.0 [facility] Comment on above: Performed By: #### L 100.0100, L100.0500, L500.4050 #### [facility] [address] [place], [address] Comprehensive Metabolic [facility] 07-21-2024 Albumin [Mass/Vol] 3.6 g/dL Normal 3.2-5.0 [facility] Comment on above: Performed By: #### L 100.0100, L100.0500, L500.4050 #### [facility] [address] [place], [address] Albumin/Globulin [Mass ratio] 1.2 {ratio} Normal 0.9-2.4 [facility] Comment on above: Performed By: #### L 100.0100, L100.0500, L500.4050 #### [facility] [address] [place], [address] ALK P 114 U/L Normal 45-117 [facility] Comment on above: Performed By: #### L 100.0100, L100.0500, L500.4050 #### [facility] [address] [place], [address] ALT [Catalytic activity/Vol] 18 U/L Normal 13-56 [facility] Comment on above: Performed By: #### L 100.0100, L100.0500, L500.4050 #### [facility] [address] [place], [address] AST [Catalytic activity/Vol] 16 U/L Normal 15-37 [facility] Comment on above: Performed By: #### L 100.0100, L100.0500, L500.4050 #### [facility] [address] [place], [address] Bilirubin [Mass/Vol] 0.50 mg/dL Normal 0.20-1.00 [facility] Comment on above: Result Comment: For patients on eltrombopag therapy, use of Dimension Hurley TBIL is not recommended. Performed By: #### L 100.0100, L100.0500, L500.4050 #### [facility] [address] [place], [address] BUN/CRE 25.9 RATIO High 10-20 [facility] Comment on above: Performed By: #### L 100.0100, L100.0500, L500.4050 #### [facility] [address] [place], [address] CA,Total 9.0 mg/dL Normal 8.5-10.1 [facility] Comment on above: Performed By: #### L 100.0100, L100.0500, L500.4050 #### [facility] [address] [place], [address] Chloride [Moles/Vol] 106 mmol/L Normal 98-107 [facility] Comment on above: Performed By: #### L 100.0100, L100.0500, L500.4050 #### [facility] [address] [place], [address] CO2 [Moles/Vol] 29.0 mmol/L Normal 21.0-32.0 [facility] Comment on above: Performed By: #### L 100.0100, L100.0500, L500.4050 #### [facility] [address] [place], [address] Creatinine [Mass/Vol] 0.73 mg/dL Normal 0.55-1.02 [facility] Comment on above: Result Comment: The validity of the calculated GFR GFRAA in patients over 70 years has not been determined. Clinical correlation is essential. Performed By: #### L 100.0100, L100.0500, L500.4050 #### [facility] [address] [place], [address] ECRCL 63.04 ml/min Normal [facility] Comment on above: Performed By: #### L 100.0100, L100.0500, L500.4050 #### [facility] [address] [place], [address] EST GFR - AA 99 mL/min Normal >60 [facility] Comment on above: Result Comment: Afri can Vincentian GFR Calc Performed By: #### L 100.0100, L100.0500, L500.4050 #### [facility] [address] [place], [address] GAP 5 Normal 5-15 [facility] Comment on above: Performed By: #### L 100.0100, L100.0500, L500.4050 #### [facility] [address] [place], [address] GFR/1.73 sq M.predicted among non-blacks MDRD (S/P/Bld) [Vol rate/Area] 82 mL/min/{1.73_m2} Normal >60 [facility] Comment on above: Result Comment: Non- GFR Calc Performed By: #### L 100.0100, L100.0500, L500.4050 #### [facility] [address] [place], [address] Globulin (S) [Mass/Vol] 2.9 g/dL Normal 2.2-4.2 [facility] Comment on above: Performed By: #### L 100.0100, L100.0500, L500.4050 #### [facility] [address] [place], [address] Glucose [Mass/Vol] 154 mg/dL High 74-106 [facility] Comment on above: Result Comment: Fast ing Glucose result greater than or equal to 126 mg/dL suggests DIABETES MELLITUS per A.D.A. criteria. Performed By: #### L 100.0100, L100.0500, L500.4050 #### [facility] [address] [place], [address] Potassium [Moles/Vol] 4.7 mmol/L Normal 3.5-5.1 [facility] Comment on above: Performed By: #### L 100.0100, L100.0500, L500.4050 #### [facility] [address] [place], [address] Sodium [Moles/Vol] 140 mmol/L Normal 136-145 [facility] Comment on above: Performed By: #### L 100.0100, L100.0500, L500.4050 #### [facility] [address] [place], [address] T PROT 6.5 g/dL Normal 6.4-8.2 [facility] Comment on above: Performed By: #### L 100.0100, L100.0500, L500.4050 #### [facility] [address] [place], [address] Urea nitrogen [Mass/Vol] 19 mg/dL High 7-18 [facility] Comment on above: Performed By: #### L 100.0100, L100.0500, L500.4050 #### [facility] [address] [place], [address] Ferritinon 07-21-2024 Ferritin [Mass/Vol] 513 ng/mL High 8-252 [facility] Comment on above: Order Comment: ARACELI Jurado ADD LDH, IRON AND DIFF TO CBC FROM THE LABS DONE Performed By: #### L 100.0100, L100.0500, L500.4050 #### [facility] [address] [place], [place], [address] Ferritin measurementOrdered By: Gladys Amador on 07-21-2024 Ferritin [Mass/Vol] 513 ng/mL High 8-252 [facility] Iron (Unsp spec) [Mass/Mass] Ordered By: Gladys Amador on 07-21-2024 Iron [Mass/Vol] 61 ug/dL 50-170 [facility] Iron measurement (mass/mass) Ordered By: Gladys Amador on 07-21-2024 Iron (Unsp spec) [Mass/Mass] 61 ug/dL 50-170 [facility] Iron saturation [Mass fracti on]Ordered By: Gladys Amador on 07-21-2024 Iron Saturation 28.1 % 15.0-55.0 [facility] Iron+Iron Binding Capacityon 07-21-2024 Iron [Mass/Vol] 61 ug/dL Normal 50-170 [facility] Comment on above: Order Comment: ARACELI E ADD LDH, IRON AND DIFF TO CBC FROM THE LABS DONE Performed By: #### L 100.0100, L100.0500, L500.4050 #### [facility] [address] [place], [address] IRON SATURATION 28.1 Normal 15.0-55.0 [facility] Comment on above: Order Comment: ARACELI Jurado ADD LDH, IRON AND DIFF TO CBC FROM THE LABS DONE ON Performed By: #### L 100.0100, L100.0500, L500.4050 #### [facility] [address] [place], [address] TIBC 217 ug/dL Low 250-450 [facility] Comment on above: Order Comment: ARACELI Jurado ADD LDH, IRON AND DIFF TO CBC FROM THE LABS DONE ON Performed By: #### L 100.0100, L100.0500, L500.4050 #### [facility] [address] [place], [address] LDHon 07-21-2024 LDH 208 U/L Normal 84-246 [facility] Comment on above: Order Comment: ARACELI Jurado ADD LDH, IRON AND DIFF TO CBC FROM THE LABS DONE Performed By: #### L 100.0100, L100.0500, L500.4050 #### [facility] [address] [place], [address] Oncology Visit Reporton 07-01 Oncology Visit Report [facility] [address] [place] [address] OFFICE VISIT Date of Service: 07/21/24 0939 MR#: [id number] Acct: [id number] Name: LETICIA HERRERA Rep #: [id number] : 1945 From: Gladys English NP METEOROLOGICAL AIDE -C Age/Sex: 78/F [place] [facility] [place] [place] Status: Signed HPI Subjective Date of Service 07/21/24 Chief Complaint F/u for Follicular lymphoma, post chemotherapy. History of Present Illness 78-year-old woman was found to have a nasopharyngeal mass. He was referred to CT of the neck on 03/05/2024 showed large soft tissue mass centered in the left nasopharynx extending into the right nasopharynx extending inferiorly to the left oropharynx with lymphadenopathy throughout the left side of the neck. She had biopsy of the nasopharyngeal mass on 03/17/2024. 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 PET/CT obtained April 07, 2024 showed hypermetabolic activity bilateral lateral and anterior neck, left axillary region, left inguinal lymph node basins. Screening for hepatitis B and C negative. Started therapy with Bendamustine and Rituxan on 04/15/2024. PET/CT performed 05/19/2024 demonstrated complete metabolic response. Completed Cycle 3 BR on 05/26/24 Interval History Patient is presenting to clinic today for a 6 week follow up. States I feel great, denies any concerns r/t today's visit. Reports she had an ENT exam in May, next planned for August. Taking PO iron with vitamin C daily. Specifically denies fever/chills, weight loss, sweats, headache, dysphagia, sinus congestion, enlarged lymph nodes, abd pain, changes in her bowel habits. BLE edema unchanged. [facility] Medical History Loss of hearing Wears hearing aid Wears glasses Wears contact lenses Wears dentures Cancer History of steroid therapy Arthritis High cholesterol Non-smoker History of stress test History of echocardiogram Cardiology follow-up encounter PONV (postoperative nausea and vomiting) Encounter for education Depression Upper GI bleed Atherosclerosis of coronary artery of [place] heart without angina pectoris Obesity Essential (primary) hypertension GERD (gastroesophageal reflux disease) Type 2 diabetes mellitus Hyperlipidemia Surgical History History of cardiac catheterization History of coronary artery stent placement (05/26/19) History of left heart catheterization (12/07/11) Hx of appendectomy History of laminectomy History of bilateral hip replacements History of total bilateral knee replacement History of hysterectomy H/O total hip arthroplasty Family History Father COPD (chronic obstructive pulmonary disease) Myocardial infarction Mother Diabetes CAD (coronary artery disease) Hx CABG Alzheimers disease CVA (cerebral vascular accident) Brother H/O angioplasty Diabetes Brother CVA (cerebral vascular accident) Son Diabetes Social History Smoking Status: Never smoker alcohol intake: never substance use type: does not use diet: diabetic caffeine: Yes Type: coffee Number of servings: 3 what type of physical activity do you participate in: other details: PT frequency: 3-4 times per week duration: 30-45 minutes/day seatbelt use: always do you feel safe at home: Yes ROS ROS Narrative Negative except as documented in the interval HPI Intake Vital Signs 06/09/24 10:27 07/21/24 09:40 07/21/24 09:47 Height 5 ft 2.5 in 5 ft 2.5 in 5 ft 2.5 in Weight: 202 lb 6 oz 202 lb 3 oz BMI 36.4 36.3 BP 163/74 H 110/74 Blood Pressure Location Lt brachial Lt brachial Position Sitting Sitting Respiration 18 16 Pulse 65 65 Pulse Source Monitor Monitor Temp 97.6 F L 98.5 F Temperature Source Temporal Artery Temporal Artery Pulse Oximetry (%) 95 97 Oxygen Delivery Method room air room air Intake Is patient in pain?: No Allergies adhesive tape Allergy (Verified 07/21/24 09:46) red, itchy atorvastatin (From Lipitor) Allergy (Verified 07/21/24 09:46) myalgias Iodinated Contrast Media (CT) Allergy (Verified 07/21/24 09:46) Shortness of breath Penicillins Allergy (Verified 07/21/24 09:46) Rash pravastatin Allergy (Verified 07/21/24 09:46) myalgias Medications ???Medication ???Instructions ???Recorded ???Confirmed ???Type aspirin 81 mg chewable tablet 81 mg PO DAILY health maintenance 12/13/17 07/21/24 History benazepril 20 mg tablet 20 mg PO DAILY blood pressure 12/13/17 07/21/24 History rosuvastatin 5 mg tablet 5 mg PO QHS cholesterol 12/13/17 07/21/24 History acetaminophen 500 mg tablet 1,000 mg PO Q8 PRN pain 12/18/17 07/21/24 History par (more content not included)... Normal [facility] Serum or plasma iron saturat ion measurement (mass fraction)Ordered By: Gladys English on 07-21-2024 Iron saturation [Mass fraction] 28.1 % 15.0-55.0 [facility] TIBCOrdered By: Gladys Osuna on 07-21-2024 Total Iron Binding Capacity 217 ug/dL Low 250-450 [facility] Urine Cultureon 07-01-2024 [facility] Escherichia coli [place] Count >100,000 Escherichia coli: REACTION Ampicillin Islt SONYA 4 Ampicillin+Sulbac Islt SONYA <=2 S ceFAZolin Islt SONYA <=4 S Cefepime Islt SONYA <=0.12 S cefTRIAXone Islt SONYA <=0.25 S Ciprofloxacin Islt SONYA <=0.25 S B-Lactamase Extended Susc Islt NEG Gentamicin Islt SONYA <=1 S Imipenem Islt SONYA <=0.25 S levoFLOXacin Islt SONYA <=0.12 S Nitrofurantoin Islt SONYA <=16 S Pip+Tazo Islt SONYA <=4 S Tobramycin Islt SONYA <=1 S TMP SMX Islt SONYA <=20 S Normal [facility] Comment on above: Performed By: #### L 504.2610, L500.4050, L100.0100 #### [facility] [place], [address] C-reactive protein measureme nt by high sensitivity methodOrdered By: Edenilson Campoverde on 06-09-2024 C-Reactive Protein Extended Range 12.20 mg/L High 0.0-3.0 [facility] Comment on above: C-Reactive Protein ( CRP) provides useful information for thediagnosis, therapy and monitoring of inflammatory processesand associated diseases. For the evaluation of Relative Riskfor Cardiovascular Disease, a High Sensitivity CRP (HSCRP)should be ordered. C-reactive protein measurement by high sensitivity method 12.20 mg/L High 0.0-3.0 [facility] Comment on above: C-Reactive Protein ( CRP) provides useful information for thediagnosis, therapy and monitoring of inflammatory processesand associated diseases. For the evaluation of Relative Riskfor Cardiovascular Disease, a High Sensitivity CRP (HSCRP)should be ordered. Erythrocyte sedimentation ra teOrdered By: Edenilson Campoverde on 06-09-2024 ESR (Bld) [Velocity] 15 mm/h 0-30 [facility] Pathologist review Rober (Unsp spec) [Interp]Ordered By: Edenilson Campoverde on 05-26-2024 Differential Pathologist's Review Reviewed [facility] Comment on above: Previous reported re sult: May foll Edited by: STEPHANIE on 05/26/24:1355Leukopenia and neutropenia.Normocytic anemia.Clinical correlation necessary.Grupo Baumann M.D. 05/26/24 AMENDED REPORT 05/26/24 8260 PATH REV previously reported as: January honorio Review by pathologistOrdered By: Edenilson Campoverde on 05-26-2024 Pathologist review Rober (Unsp spec) [Interp] Reviewed [facility] Comment on above: Previous reported re sult: May foll Edited by: STEPHANIE on 05/26/24:1355Leukopenia and neutropenia.Normocytic anemia.Clinical correlation necessary.Grupo Baumann M.D. 05/26/24 AMENDED REPORT 05/26/24 832 PATH REV previously reported as: January honorio Serum or plasma uric acid me asurement (mass/volume)Ordered By: Edenilson Campoverde on 05-26-2024 Urate [Mass/Vol] 3.9 mg/dL 2.6-6.0 [facility] Comment on above: The drugs N-Acetylcy steine and Metamizole may falsely depress this assay. Magnesium measurementOrdered By: Edenilson Campoverde on 05-05-2024 Magnesium [Mass/Vol] 2.2 mg/dL 1.6-2.6 [facility] Phosphorus measurementOrdere d By: Edenilson Campoverde on 05-05-2024 Phosphorus Level 3.7 mg/dL 2.5-4.9 [facility] Addendum DocumentOrdered By: Edenilson Campoverde on 04-08-2024 Serum Immunofixation Comments Comment . [facility] Comment on above: Protein electrophore sis scan will follow via computer,mail, or percussion instructor delivery.Performed at: [facility] [id number] Director: Macario Pandey PhD, Phone: [phone] Albumin Elph [Mass/Vol]Order ed By: Edenilson Campoverde on 04-08-2024 Albumin [Mass/Vol] 3.7 g/dL 2.9-4.4 [facility] Alpha 1 globulin Elph [Mass/ Vol]Ordered By: Edenilson Campoverde on 04-08-2024 Yfkxl-9-Uctmwtduj (LIZ) 0.3 g/dL 0.0-0.4 [facility] Cgwfn-9-Halimeclg (LIZ) 1.0 g/dL 0.4-1.0 [facility] Beta globulin Elph [Mass/Vol ]Ordered By: Edenilson Campoverde on 04-08-2024 Beta-Globulins (LIZ) 1.0 g/dL 0.7-1.3 [facility] Gamma globulin Elph [Mass/Vo l]Ordered By: Edenilson Campoverde on 04-08-2024 Gamma Globulins (LIZ) 0.6 g/dL 0.4-1.8 [facility] HBV core Ab Ql (S)Ordered By : Edenilson Campoverde on 04-08-2024 Hepatitis B Core Total Antibody Negative Negative [facility] HBV surface Ag IA QlOrdered By: Edenilson Campoverde on 04-08-2024 Hepatitis B Surface Antigen Negative Negative [facility] Hepatitis B surface antibody Ordered By: Edenilson Campoverde on 04-08-2024 Hepatitis B Surface Antibody Non-Reactive . [facility] Comment on above: Non Reactive: Incons istent with immunity, less than 10 mIU/mL Reactive: Consistent with immunity, greater than 9.9 mIU/mL Hepatitis C virus antibody a ssay by recombinant immunoblot assayOrdered By: Edenilson Campoverde on 04-08-2024 Hepatitis C Antibody Non-Reactive Non Reactive [facility] IgA [Mass/Vol]Ordered By: Mishel Campoverde on 04-08-2024 Immunoglobulin A 98 mg/dL 64-422 [facility] IgG [Mass/Vol]Ordered By: Mishel Campoverde on 04-08-2024 Immunoglobulin G 635 mg/dL 586-1602 [facility] Immunoglobulin M measurement Ordered By: Edenilson Campoverde on 04-08-2024 Immunoglobulin M 27 mg/dL 26-217 [facility] Immunoglobulin light chains. kappa [Mass/Vol]Ordered By: Edenilson Campoverde on 04-08-2024 Free [place] Light Chains, Quant 13.9 mg/L 3.3-19.4 [facility] Immunoglobulin light chains. kappa/Immunoglobulin light chains.lambda (S) [Mass ratio]Ordered By: Edenilson Campoverde on 04-08-2024 Free [place]/Lambda Light Chain Ratio 0.99 0.26-1.65 [facility] Comment on above: Performed at: [facility] [address] [id number] Director: Macario Pandey PhD, Phone: [phone] Interpretation IEP [Interp]O rdered By: Edenilson Campoverde on 04-08-2024 Immunofixation Screen Comment . [facility] Comment on above: No monoclonality det ected. Interpretation of serum or p lasma protein pattern by immunofixation (narrative resultOrdered By: Edenilson Campoverde on 04-08-2024 Protein Fractions Immunofixation Rober [Interp] Not Observed g/dL Not Observed [facility] Lambda free light chain kavita urementOrdered By: Eednilson Campovrede on 04-08-2024 Free [place] Light Chains, Quant 14.1 mg/L 5.7-26.3 [facility] No Panel InformationOrdered By: Edenilson Campoverde on 04-08-2024 Addendum Document Comment . [facility] Comment on above: Protein electrophore sis scan will follow via computer,mail, or percussion instructor delivery.Performed at: [facility] [address] [id number] Director: Macario Pandey PhD, Phone: [phone] Hepatitis C Antibody Comment Comment . [facility] Comment on above: Not infected with HC V unless early or acute infection issuspected (which may be delayed in an immunocompromisedindividual), or other evidence exists to indicate HCVinfection. Protein Fractions Immunofixa tion Rober [Interp]Ordered By: Edenilson Campoverde on 04-08-2024 M-Mihai (LIZ) Not Observed g/dL Not Observed [facility] Serum albumin/globulin ratio Ordered By: Edenilson Campoverde on 04-08-2024 Albumin/Globulin (LIZ) 1.3 0.7-1.7 [facility] Serum hepatitis B virus core antibody detectionOrdered By: Edenilson Campoverde on 04-08-2024 HBV core Ab Ql (S) Negative Negative [facility] Serum immunoglobulin kappa l ight chains/immunoglobulin lambda light chains mass ratioOrdered By: Edenilson Campoverde on 04-08-2024 Immunoglobulin light chains.kappa/Immunoglobu angelica light chains.lambda (S) [Mass ratio] 0.99 0.26-1.65 [facility] Comment on above: Performed at: [address] [id number] Director: Macario Pandey PhD, Phone: [phone] Serum or plasma IgA measurem ent (mass/volume)Ordered By: Edenilson Campoverde on 04-08-2024 IgA [Mass/Vol] 98 mg/dL 64-422 [facility] Serum or plasma IgG measurem ent (mass/volume)Ordered By: Edenilson Campoverde on 04-08-2024 IgG [Mass/Vol] 635 mg/dL 586-1602 [facility] Serum or plasma alpha 1 glob ulin measurement by electrophoresis (mass/volume)Ordered By: Edenilson Campoverde on 04-08-2024 Alpha 1 globulin Elph [Mass/Vol] 0.3 g/dL 0.0-0.4 [facility] Alpha 1 globulin Elph [Mass/Vol] 1.0 g/dL 0.4-1.0 [facility] Serum or plasma beta globuli n measurement by electrophoresis (mass/volume)Ordered By: Edenilson Campoverde on 04-08-2024 Beta globulin Elph [Mass/Vol] 1.0 g/dL 0.7-1.3 [facility] Serum or plasma gamma globul in measurement by electrophoresis (mass/volume)Ordered By: Edenilson Campoverde on 04-08-2024 Gamma globulin Elph [Mass/Vol] 0.6 g/dL 0.4-1.8 [facility] Serum or plasma hepatitis B virus surface antigen detection by immunoassayOrdered By: Edenilson Campoverde on 04-08-2024 HBV surface Ag IA Ql Negative Negative [facility] Serum or plasma immunoelectr ophoresis interpretation (nominal result)Ordered By: Edenilson Campoverde on 04-08-2024 Interpretation IEP [Interp] Comment . [facility] Comment on above: No monoclonality det ected. Serum or plasma immunoglobul in kappa light chains measurement (mass/volume)Ordered By: Edenilson Campoverde on 04-08-2024 Immunoglobulin light chains.kappa [Mass/Vol] 13.9 mg/L 3.3-19.4 [facility] Serum or plasma protein kavita urement (mass/volume)Ordered By: Edenilson Campoverde on 04-08-2024 Protein [Mass/Vol] 6.6 g/dL 6[facility]0-8.5 [facility] (KIRBY) LETICIA HERRERA ([id number]) 1945 F Date Time Provider Department 04/01/24 BRYCE WU HEMLALY During your visit today, we recorded the following information about you: Lynda Rojas 04/01/2024 4:05 PM Signed Called patient and spoke with her she said she did not want appointment with us. She has appointment at the [facility] Lynda Rojas Allergies As of Date: 04/01/2024 Noted Allergy Reaction PENICILLINS 08/15/2015 2 - Rash TAPE (ADHESIVE TAPE (ROSINS)) 08/15/2015 14 - Other: See Comments Comments: skin irritation after tape removed which developed into an infection USE ONLY PAPER TAPE Date Reviewed: 02/20/2017 Reviewed by: Ailyn Miranda) - Fully Assessed Prescriptions as of 04/01/2024 - traMADol (ULTRAM) 50 mg tablet Take 1 tablet by mouth every 6 hours as needed. - celecoxib (CELEBREX) 200 mg capsule Take 1 capsule by mouth once daily. - methocarbamol (ROBAXIN) 500 mg tablet Take 1 tablet by mouth four times daily as needed (Muscle spasms). - dextrose (INSTA-GLUCOSE) 40 % gel Take 15 g by mouth as needed. USE WHEN BLOOD GLUCOSE IS LESS THAN 70 MG/DL (60 MG/DL IF ) AND PATIENT DEMONSTRATES DIMINISHED LEVEL OF CONSCIOUSNESS BUT IS ABLE TO SWALLOW WITHOUT RISK OF ASPIRATION - polyethylene glycol 3350 (MIRALAX, GLYCOLAX) 17 gram packet Take 1 Packet by mouth once daily as needed (Constipation). - insulin aspart (NOVOLOG FLEXPEN) 100 unit/mL inpn Inject 5-10 Units subcutaneously daily with dinner. - PARoxetine (PAXIL) 20 mg tablet Take 1 tablet by mouth once daily. - metFORMIN ER (GLUCOPHAGE XR) 500 mg 24 hr tablet Take 1,000 mg by mouth daily with dinner. - benazepril (LOTENSIN) 20 mg tablet Take 1 tablet by mouth once daily. - CRESTOR 5 mg tablet Take 1 tablet by mouth once daily. - RANEXA 1,000 mg Tb12 Take 1 tablet by mouth twice daily. - aspirin, enteric coated (ASPIRIN, ENTERIC COATED) 81 mg EC tablet Take 81 mg by mouth once daily. - omeprazole (PRILOSEC) 20 mg capsule Take 20 mg by mouth every other day. - LEVEMIR FLEXTOUCH 100 unit/mL (3 mL) inpn injection Inject 20-35 Units subcutaneously twice daily. 20mg every am and 35mg every pm - VICTOZA 3-GRAHAM 0.6 mg/0.1 mL (18 mg/3 mL) pnij Inject 18 mg subcutaneously daily at bedtime. - acetaminophen (TYLENOL EXTRA STRENGTH) 500 mg tablet Take 1,000 mg by mouth every 6 hours as needed for Pain. 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*08/23/2015 Lumbar stenosis [M48.061] 12/08/2015 Osteoarthritis of spine with radiculopathy, lum*12/09/2015 Lumbar stenosis with neurogenic claudication [M*12/09/2015 Diabetes mellitus, type II, insulin dependent [*12/09/2015 Obesity, Class III, BMI >= 40 (morbid obesity) *02/08/2017 Encounter Status:Closed by RADHA WEBSTER on 04/01/24 Normal [facility] FLOW CYTOMETRY TEST (PERFORM ABLE)- LAB ONLYon 03-17-2024 CELL COUNT (BLOOD) 5.14 x10*3/uL Normal not established [facility] Comment on above: Order Comment: Pre-o p diagnosis: 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] Performed By: #### F LWCYTO #### AB Alejandra ([id number]) [facility] ([facility]) [id number] [place] [address] CELL POPULATIONS SEE COMMENT Normal [facility] Comment on above: Order Comment: Pre-o p diagnosis: 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] Result Comment: Abno rmal Cell Population: Lymphocytes Percentage: 13 % Phenotype Marker Interpretation CD1c Positive dim CD2 Negative CD3 Negative CD4 Negative CD5 Negative CD7 Negative CD8 Negative CD10 Positive moderate CD11c Negative CD14 Negative CD19 Positive dim-moderate CD20 Positive moderate CD23 Negative CD26 Negative CD30 Negative CD38 Positive moderate CD40 Positive moderate CD43 Negative CD45 Positive moderate CD56 Negative CD71 Positive moderate CD79b Positive moderate CD95 Negative CD180 Positive moderate [place] Negative Lambda Positive dim-moderate Performed By: #### F LWCYTO #### AB Alejandra ([id number]) [facility] ([facility]) [address] [place] [address] DIAGNOSIS SEE COMMENT Normal [facility] Comment on above: Order Comment: Pre-o p diagnosis: 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] Result Comment: NASO PHARYNGEAL MASS, LEFT, FLOW CYTOMETRY: 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 Note: The cells are medium-sized to large based on scatter. The cells have strong expression of CD71 suggestive of a highly proliferative lesion. The main differential includes large B cell lymphoma, high grade B cell lymphoma and follicular lymphoma. Correlate with separate surgical pathology report. Performed By: #### F LWCYTO #### AB Alejandra ([id number]) [facility] ([facility]) [address] [place] [address] FLOW DIFFERENTIAL SEE COMMENT Normal [facility] Comment on above: Order Comment: Pre-o p diagnosis: 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] Result Comment: Lymp hocyte: 67 % CD3+CD4+: 56 % ; Polyclonal (TRBC1) CD3+CD8+: 25 % ; Polyclonal (TRBC1) Natural Killer Cells: 2 % CD19+: 18 % B Cell Light Chain Expression: Monoclonal, see description above. Monocyte: 20 % Granulocyte: 1 % Performed By: #### F LWCYTO #### AB Alejandra ([id number]) [facility] ([facility]) [address] [place] [address] FLOW TEST ORDERED Lymphoma Panel Normal not established [facility] Comment on above: Order Comment: Pre-o p diagnosis: 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] Performed By: #### F DIONICIO #### AB Alejandra ([id number]) [facility] ([facility]) [address] [place], [place] [id number] Lab test method Nom (Spec) SEE COMMENT Normal [facility] Comment on above: Order Comment: Pre-o p diagnosis: 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] Result Comment: Refe rence ranges not established. This test is a multicolor, whole blood lysis assay. It was developed and its performance characteristics determined by the Department of Pathology, [facility], and has not been cleared or approved by the U.S. Food and Drug Administration. The laboratory is regulated under CLIA as qualified to perform high complexity testing. This test is used for clinical purposes. It should not be regarded as investigational or for research. Immunophenotypic analysis was performed using the following antibodies: 1A: CD45. 1B: CD71, CD30, CD40, CD95, CD14, CD45. 1C: CD56, CD7, CD4, CD8, CD3, CD45. 1D: CD2, CD26, CD4, CD5, CD3, CD45. 1E: CD43, CD23, CD20, CD5, CD19, CD45. 1F: CD11c, CD180, CD1c, CD79b, CD19, CD45. 1G: TRBC1, TCR Gamma/Delta, CD4, CD8, CD3, CD45. 1H: [place] Surface, Lambda Surface, CD38, CD10, CD19, CD45. Performed By: #### Catie LWLYNNETTEO #### AB Alejandra ([id number]) [facility] ([facility]) [address] [place], [place] [address] NUMBER OF CELLS COLLECTED [id number] per tube Normal not established [facility] Comment on above: Order Comment: Pre-o p diagnosis: 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] Performed By: #### F LWSAURABH #### AB Alejandra ([id number]) [facility] ([facility]) [address] [place], [place] [address] Pathology report Cancer Narrative SEE COMMENT Normal [facility] Comment on above: Order Comment: Pre-o p diagnosis: 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] Result Comment: Flow Cytometry Case: [id number] Authorizing Provider: Valdemar Guardado MD Collected: 03/17/2024 1324 Ordering Location: [facility] Received: 03/17/[address] [place] [address] OR Pathologist: Santana Raygoza MD Specimen: NASOPHARYNX BIOPSY, LEFT NASOPHARYNGEAL MASS Performed By: #### F LWCYTO #### AB Alejandra ([id number]) [facility] ([facility]) [address] [place] [address] SIGNATURE COMMENT By the signature on this report, the individual or group listed as making the Final Interpretation/Diagn osis certifies that they have reviewed this case and the staining reactivity of the antibodies and reagents in the analysis were determined to be acceptable. 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] Performed By: #### F LWCYTO #### AB Alejandra ([id number]) [facility] ([facility]) [address] [place], [place] [id number] Glucose Test strip manual (B ld) [Mass/Vol]on 03-17-2024 Glucose [Mass/Vol] 110 mg/dL High 74 - 99 mg/dL [facility] Interpretation and review of laboratory results Abnormal [facility] Glucose [Mass/Vol] 110 mg/dL High 74-99 [facility] Comment on above: Performed By: #### 2 341-6 #### AB Alejandra ([id number]) [facility] ([facility]) [address] [place] [address] Glucose [Mass/Vol] 109 mg/dL High 74 - 99 mg/dL [facility] Interpretation and review of laboratory results Abnormal [facility] Glucose [Mass/Vol] 109 mg/dL High 74-99 [facility] Comment on above: Performed By: #### 2 341-6 #### AB Alejandra ([id number]) [facility] ([facility]) [address] [place] [address] PARAFFIN BCL6 BA, FISHon Chr analysis overall interpretation Molgen Ql (Bld/Tiss) [Interp] SEE COMMENT Normal [facility] Comment on above: Order Comment: 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 *Please note that 55.5% had 3~5 copies of BCL6.* This finding may indicate gains of the BCL6 gene or gains of chromosome 3. Anomaly Result (%) Reference range (%) BCL6 rearrangement 0.0% (20% or greater) METHODOLOGY The BCL6 break apart probe ([employer], [employer], [place], [place]) was used in this interphase FISH assay. This test should not be used for the detection of minimal residual disease. Number of BCL6 nuclei scored: 200 Number of techs: 2 Specimen type: Tissue Block #: [id number] ANALYTE SPECIFIC REAGENT (ASR) DISCLAIMER This FISH test was developed and its performance characteristics determined by the [facility]. It has not been cleared or approved by the U.S. Food and Drug Administration. The FDA has determined that such clearance or approval is not necessary. This test is used for clinical purposes. It should not be regarded as investigational or for research. This laboratory is certified under the Clinical Laboratory Improvement Amendments (CLIA) as qualified to perform high complexity laboratory testing. Performed By: #### G ENBCL6 #### FREDA CERDA ([id number]) [facility] ([facility]) [address] [place] [address] Result Comment: Resu lts Summary Fluorescence in situ hybridization (FISH) analysis showed ABNORMAL results with evidence of BCL2 rearrangement. Anomaly Result (%) Reference range (%) BCL2 rearrangement 54.5% (20% or greater) *Please note there were extra copies of the rearranged BCL2 present* METHODOLOGY The BCL2 break apart probe (SureFISH, [employer] [place], [place]) was used in this interphase FISH assay. This test should not be used for the detection of minimal residual disease. Number of BCL2 nuclei scored: 200 Number of techs: 2 Specimen type: Tissue Block #: [id number] ANALYTE SPECIFIC REAGENT (ASR) DISCLAIMER This FISH test was developed and its performance characteristics determined by the [facility]. It has not been cleared or approved by the U.S. Food and Drug Administration. The FDA has determined that such clearance or approval is not necessary. This test is used for clinical purposes. It should not be regarded as investigational or for research. This laboratory is certified under the Clinical Laboratory Improvement Amendments (CLIA) as qualified to perform high complexity laboratory testing. Performed By: #### G ENBCL2 #### FREDA CERDA ([id number]) [facility] ([facility]) [address] [address] [id number] Result Comment: Resu lts Summary Fluorescence in situ hybridization (FISH) analysis showed NORMAL results with no evidence of IGH/MYC rearrangement. *Please note that 52.5% cells showed 3~5 copies of IGH and MYC.* These findings may indicate a gain of the MYC and IGH genes, or gains of chromosomes 8 and 14. Additionally IGH may be rearranged, however other FISH studies on this patient indicate that MYC, BCL2, and BCL6 were also present in extra copies. In addition, BCL2 was both rearranged and present in extra copies. MYC and BCL6 were not rearranged (due to the lack of break-apart signal patterns). Anomaly Result (%) Reference range (%) IGH/MYC rearrangement 0.0% (20% or greater) IGH/MYC partial rearrangement 0.0% (30% or greater) METHODOLOGY The IGH/MYC Dual Fusion probe (SureFISH, [employer], [place], [place]) was used in this interphase FISH assay. This test should not be used for the detection of minimal residual disease. Number of IGH/MYC nuclei scored: 200 Number of techs: 2 Specimen type: Tissue Block #: [id number] ANALYTE SPECIFIC REAGENT (ASR) DISCLAIMER This FISH test was developed and its performance characteristics determined by the [facility]. It has not been cleared or approved by the U.S. Food and Drug Administration. The FDA has determined that such clearance or approval is not necessary. This test is used for clinical purposes. It should not be regarded as investigational or for research. This laboratory is certified under the Clinical Laboratory Improvement Amendments (CLIA) as qualified to perform high complexity laboratory testing. Performed By: ###Clay Fay ENIGH #### FREDA CERDA ([id number]) [facility] ([facility]) [address] [place], [place] [id number] Result Comment: Resu lts Summary Fluorescence in situ hybridization (FISH) analysis showed NORMAL results with no evidence of MYC rearrangement. *Please note that 58.5% of cells had 3~5 copies of MYC. This finding may indicate a gain of the MYC gene, or gains of chromosome 8. Anomaly Result (%) Reference range (%) MYC rearrangement 0.0% (20% or greater) METHODOLOGY The MYC break apart probe (SureFISH, [employer], [place], [place]) was used in this interphase FISH assay. This test should not be used for the detection of minimal residual disease. Number of MYC nuclei scored: 200 Number of techs: 2 Specimen type: Tissue Block #: [id number] ANALYTE SPECIFIC REAGENT (ASR) DISCLAIMER This FISH test was developed and its performance characteristics determined by the [facility]. It has not been cleared or approved by the U.S. Food and Drug Administration. The FDA has determined that such clearance or approval is not necessary. This test is used for clinical purposes. It should not be regarded as investigational or for research. This laboratory is certified under the Clinical Laboratory Improvement Amendments (CLIA) as qualified to perform high complexity laboratory testing. 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] Performed By: #### Nya ENBCL6 #### FREDA CERDA ([id number]) [facility] ([facility]) [address] [place] [place] [id number] Performed By: ###Clay Fay ENBCL2 #### FREDA CERDA ([id number]) [facility] ([facility]) [address] [place] [id number] Performed By: #### G ENIGH #### FREDA SADRI ([id number]) [facility] ([facility]) [place] [id number] Performed By: #### G ENMYC #### FREDA SADRI ([id number]) [facility] ([facility]) [place] [phone] ELECTRONICALLY SIGNED BY CYTOGENETICS Pedro Reddy Ph.D. 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] Performed By: #### G ENBCL6 #### FREDA SADRI ([id number]) [facility] ([facility]) [place] [address] Performed By: #### G ENBCL2 #### FREDA SADRI ([id number]) [facility] ([facility]) [place] [address] Performed By: #### G ENIGH #### FREAD SADRI ([id number]) [facility] ([facility]) [place] [address] Performed By: #### G ENMYC #### FREDA SADRI ([id number]) [facility] ([facility]) [place] [id number] FISH ISCN RESULTS SEE COMMENT [facility] Comment on above: Order Comment: Pre-o p diagnosis: 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] Result Comment: FISH NEGATIVE for BCL6 rearrangement (See interpretation.) nuc daniel(BCL6)x3~5[111/200] Performed By: #### G ENBCL6 #### FREDA SADRI ([id number]) [facility] ([facility]) [place] [id number] Result Comment: FISH POSITIVE for BCL2 rearrangement (See interpretation.) nuc daniel(3'BCL2, 5'BCL2)x3~5(3'BCL2 sep 5'BCL2x1~2)[109/200] Performed By: #### G ENBCL2 #### FREDA SADRI ([id number]) [facility] ([facility]) [address] [place] [address] Result Comment: FISH NEGATIVE for IGH/MYC rearrangement (See interpretation) nuc daniel(MYC,IGH)x3~5[105/200] Performed By: #### G ENIGH #### FREDA SHILORI ([id number]) [facility] ([facility]) [address] [place] [address] Result Comment: FISH NEGATIVE for MYC rearrangement (See interpretation) nuc daniel(MYC)x3~5[117/200] Performed By: #### G ENMYC #### FREDA SADRI ([id number]) [facility] ([facility]) [address] [place] [address] Surgical pathology studyon 0 03-17-2024 Surgical pathology study Pathology report.total SEE COMMENT Surgical Pathology Case: [id number] Authorizing Provider: Valdemar Guardado MD Collected: 03/17/2024 1249 Ordering Location: [facility] Received: 03/17/2024 1254 [facility] OR Pathologist: Santana Raygoza MD Specimens: A) - NASOPHARYNX BIOPSY, left nasopharyngeal mass B) - NASOPHARYNX BIOPSY, LEFT NASOPHARYNGEAL MASS Path report.final diagnosis SEE COMMENT A-B. 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 NOTE: Definitive areas of diffuse large B-cell lymphoma are not identified. Clinical and radiological correlation is recommended. MORPHOLOGY: Sections from part A and B' show fragments of mucosa lined by benign respiratory epithelium with a prominent underlying dense lymphoid infiltrate with a very vaguely nodular architecture. The infiltrate is composed of an increased number of large cells with irregular nuclear contours and visible nucleoli (centroblast-like, greater than 15/high power field) with presence of interspersed small lymphoid cells with irregular nuclear contours and condensed chromatin. A focal area of lymphoma cells outside [employer] meshworks is present, however, composed of an admixture of centroblasts and centrocyte-like cells. IMMUNOHISTOCHEMISTRY : Immunohistochemical stains performed on block B1 reveal the lymphoma cells are: CD3: Highlights T cells. CD5: Negative. CD20: Diffusely positive CD19: Similar to CD20 CD10: Diffusely positive BCL6: Positive. BCL2: Positive. MUM1: Predominantly negative. CD21: Negative; highlights presence of [employer] meshworks in most of the lesion. CD23: Negative; similar to CD21. CD30: Predominantly negative. MYC: Negative TIM (EBV DANIEL): Negative Ki-67: variable, up to 40%. FLOW CYTOMETRY: Performed, see separate report for details. CYTOGENETIC/MOLECULA R STUDIES: FISH for MYC, BCL2 and BCL6 gene rearrangements is pending and will be reported separately. Laboratory comment By the signature on this report, the individual or group listed as making the Final Interpretation/Diagn osis certifies that they have reviewed this case. 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 The specimen is bisected and both are submitted for frozen section analysis and then in 2 cassettes. MDW/KATIE/NIS B: Received fresh, labeled with the patient's name and hospital number and left nasopharyngeal mass, are multiple fragments of castillo-pink soft tissue aggregating to 1.3 x 1.1 x 0.4 cm. A portion of the specimen is submitted in RPMI for flow cytometry/lymphoma protocol. The remainder of the specimen is submitted in a total of 1 cassette. KATIE/NIS LAB AP INTRAOPERATIVE CONSULTATION SEE COMMENT A: Received Date and Time: 03/17/24 12:50 Called Date and Time: 03/17/24 13:21 Intraoperative Diagnosis: AFS1-2: Markedly atypical cells, favor malignant process; defer to permanent; request flow cytometry. Intraoperative Consult Pathologist(s): Tangela Coronel MD PhD LAB AP ASR DISCLAIMER One or more of the reagents used to perform assays on this specimen MAY have contained components considered to be analyte specific reagents (ASR's). ASR's have not been cleared or approved by the U.S. Food and Drug Administration. These assays were developed and their performance characteristics determined by the Department of Pathology at [facility]. The FDA does not require this test to go through premarket FDA review. This test is used for clinical purposes. It should not be regarded as investigational or for research. This laboratory is certified under the Clinical Laboratory Improvement Amendments (CLIA) as qualified to perform high complexity clinical laboratory testing. The assays were performed with appropriate positive and negative controls which stained appropriately. 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] Basic metabolic 2000 panelon 03-10-2024 Anion gap [Moles/Vol] 16 mmol/L Normal 10-20 [facility] Comment on above: Performed By: #### 2 4321-2 #### AB AYALAMOTZER L ([id number]) [facility] ([facility]) [id number] [place] [address] Calcium [Mass/Vol] 9.4 mg/dL Normal 8.6-10.6 [facility] Comment on above: Performed By: #### 2 4321-2 #### AB SCHMOTZER L ([id number]) [facility] ([facility]) [address] [place] [address] Chloride [Moles/Vol] 99 mmol/L Normal 98-107 [facility] Comment on above: Performed By: #### 2 4321-2 #### AB SCHMOTZER L ([id number]) [facility] ([facility]) [address] [place] [address] CO2 [Moles/Vol] 28 mmol/L Normal 21-32 [facility] Comment on above: Performed By: #### 2 4321-2 #### AB SCHMOTZER L ([id number]) [facility] ([facility]) [address] [place] [address] Creatinine [Mass/Vol] 0.81 mg/dL Normal 0.50-1.05 [facility] Comment on above: Performed By: #### 2 4321-2 #### AB SCHMOTZER L ([id number]) [facility] ([facility]) [address] [place] [address] Glomerular filtration rate/1.73 sq M.predicted 75 mL/min/1.73m*2 Normal >60 [facility] Comment on above: Result Comment: Calc ulations of estimated GFR are performed using the 2020 CKD-EPI Study Refit equation without the race variable for the IDMS-Traceable creatinine methods. https://jasn.asnjournals.org/content/early/ASN.014 6197704 Performed By: #### 2 4321-2 #### AB Alejandra ([id number]) [facility] ([facility]) [id number] [place] [address] Glucose [Mass/Vol] 92 mg/dL Normal 74-99 [facility] Comment on above: Performed By: #### 2 4321-2 #### AB DELUNA L ([id number]) [facility] ([facility]) [id number] [place] [address] Potassium [Moles/Vol] 5.2 mmol/L Normal 3.5-5.3 [facility] Comment on above: Performed By: #### 2 4321-2 #### AB AYALAMOTZER L ([id number]) [facility] ([facility]) [address] [place] [address] Sodium [Moles/Vol] 138 mmol/L Normal 136-145 [facility] Comment on above: Performed By: #### 2 4321-2 #### AB AYALAMOTZER L ([id number]) [facility] ([facility]) [id number] [place] [address] Urea nitrogen [Mass/Vol] 25 mg/dL High 6-23 [facility] Comment on above: Performed By: #### 2 4321-2 #### AB AYALAMOTZER L ([id number]) [facility] ([facility]) [address] [place] [address] Neck W contrast [place] 06-0 There is a large soft tissue mass which appears centered within the left nasopharynx, however crosses the midline to extend into the right nasopharynx and involves the posterior nasal cavity on the left. Inferiorly the mass extends to the level of the left oropharynx. The mass abuts the left lateral pterygoid and prevertebral muscles and abuts the left cervical internal carotid artery at the level of the skull base spinal 180 degrees. There is loss of fat signal within the left pterygoid palatine fossa which may represent perineural involvement. No definite involvement of the clivus is noted. There is lymphadenopathy throughout the left neck. 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 MACRO: None Signed by: Deisy Antonio 03/05/2024 12:34 PM Dictation workstation: [id number] Interpreted By: Deisy Antonio, STUDY: CT SOFT TISSUE NECK W IV CONTRAST; 03/05/2024 11:11 am INDICATION: Signs/Symptoms:Nasop haryngeal mass, evaluate for disease. COMPARISON: None. ACCESSION NUMBER(S): [id number] ORDERING CLINICIAN: VALDEMAR GUARDADO TECHNIQUE: Axial CT images of the neck were obtained. The patient received 95 cc Optiray 350 intravenous contrast agent. The images were reformatted in angled axial, coronal and sagittal planes. FINDINGS: Oral Cavity, Pharynx and Larynx: The oral cavity is unremarkable. There is a large mass which appears centered within the left nasopharynx, however crosses the midline and extends into the nasopharynx on the right. The mass measures a proximally 4.2 x 3.5 x 4.6 cm transverse by AP by cc on image 45 series 201 and image 58 series 203. Anteriorly there is slight extension into the posterior left nasopharynx as well as abutment of the pterygoid plates. Laterally on the left there is abutment of the medial pterygoid muscle. There is decreased fat signal within the left pterygoid palatine fossa. Posteriorly the mass abuts the prevertebral muscles and abuts the left cervical internal carotid artery at the level of the skull base with at least 180 degrees of contact. Inferiorly the mass extends to the level of the oropharynx. No definite involvement of the clivus is noted. Base of tongue, epiglottis and right tonsillar region are unremarkable. Hypopharynx and larynx are unremarkable. Retropharyngeal and Prevertebral Soft Tissues: Unremarkable. Lymph nodes: There are numerous enlarged lymph nodes on the left. Left 1 B lymph node measures 2.0 x 1.5 cm (image 75 series 201). Left level 2A lymph node measures 1.7 x 1.0 cm (image 64 series 201). Left level 2 lymph node posterior to the jugular vein measures 1.5 x 1.6 cm (image 71 series 201). There are additional greater than expected borderline enlarged left level 2, level 3 level 4 and supraclavicular lymph nodes. No cervical lymphadenopathy within the right neck, however there are greater than expected small lymph nodes at level 2, level 3, level 4 and the supraclavicular region. Neck vessels: Bilateral neck vessels are normal in course and caliber and appear patent. Atherosclerotic calcification at the carotid bifurcation bilaterally. Thyroid gland: The thyroid gland is unremarkable in size and appearance. Parotid and submandibular glands: Bilateral parotid and submandibular glands are unremarkable in appearance. Paranasal Sinuses and Mastoids: Visualized paranasal sinuses and bilateral mastoids are predominantly clear. Limited images through the lung apices demonstrates respiratory motion artifact and dependent atelectasis. Degenerative changes of the cervical spine. MMODAL Deisy Antonio MD - 03/05/2024 Interpreted By: Deisy Antonio, STUDY: CT SOFT TISSUE NECK W IV CONTRAST; 03/05/2024 11:11 am INDICATION: Signs/Symptoms:Nasop haryngeal mass, evaluate for disease. COMPARISON: None. ACCESSION NUMBER(S): [id number] ORDERING CLINICIAN: VALDEMAR GUARDADO TECHNIQUE: Axial CT images of the neck were obtained. The patient received 95 cc Optiray 350 intravenous contrast agent. The images were reformatted in angled axial, coronal and sagittal planes. FINDINGS: Oral Cavity, Pharynx and Larynx: The oral cavity is unremarkable. There is a large mass which appears centered within the left nasopharynx, however crosses the midline and extends into the nasopharynx on the right. The mass measures a proximally 4.2 x 3.5 x 4.6 cm transverse by AP by cc on image 45 series 201 and image 58 series 203. Anteriorly there is slight extension into the posterior left nasopharynx as well as abutment of the pterygoid plates. Laterally on the left there is abutment of the medial pterygoid muscle. There is decreased fat signal within the left pterygoid palatine fossa. Posteriorly the mass abuts the prevertebral muscles and abuts the left cervical internal carotid artery at the level of the skull base with at least 180 degrees of contact. Inferiorly the mass extends to the level of the oropharynx. No definite involvement of the clivus is noted. Base of tongue, epiglottis and right tonsillar region are unremarkable. Hypopharynx and larynx are unremarkable. Retropharyngeal and Prevertebral Soft Tissues: Unremarkable. Lymph nodes: There are numerous enlarged lymph nodes on the left. Left 1 B lymph node measures 2.0 x 1.5 cm (image 75 series 201). Left level 2A lymph node measures 1.7 x 1.0 cm (image 64 series 201). Left level 2 lymph node posterior to the jugular vein measures 1.5 x 1.6 cm (image 71 series 201). There are additional greater than expected borderline enlarged left level 2, level 3 level 4 and supraclavicular lymph nodes. No cervical lymphadenopathy within the right neck, however there are greater than expected small lymph nodes at level 2, level 3, level 4 and the supraclavicular region. Neck vessels: Bilateral neck vessels are normal in course and caliber and appear patent. Atherosclerotic calcification at the carotid bifurcation bilaterally. Thyroid gland: The thyroid gland is unremarkable in size and appearance. Parotid and submandibular glands: Bilateral parotid and submandibular glands are unremarkable in appearance. Paranasal Sinuses and Mastoids: Visualized paranasal sinuses and bilateral mastoids are predominantly clear. Limited images through the lung apices demonstrates respiratory motion artifact and dependent atelectasis. Degenerative changes of the cervical spine. 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 Inferiorly the mass extends to the level of the left oropharynx. The mass abuts the left lateral pterygoid and prevertebral muscles and abuts the left cervical internal carotid artery at the level of the skull base spinal 180 degrees. There is loss of fat signal within the left pterygoid palatine fossa which may represent perineural involvement. No definite involvement of the clivus is noted. There is lymphadenopathy throughout the left neck. 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 MACRO: None Signed by: Deisy Antonio 03/05/2024 12:34 PM Dictation workstation: [id number] [facility] Work Phone: Radiology Study observation (narrative) [facility] Work Phone: CT Neck W contrast IVOrdered By: Deisy Antonio on 03-05-2024 [facility] Work Phone: CT SOFT TISSUE NECK W IV CON TRASTon 03-05-2024 CT SOFT TISSUE NECK W IV CONTRAST Interpreted By: Deisy Antonio, STUDY: CT SOFT TISSUE NECK W IV CONTRAST; 03/05/2024 11:11 am INDICATION: Signs/Symptoms:Nasop haryngeal mass, evaluate for disease. COMPARISON: None. ACCESSION NUMBER(S): [id number] ORDERING CLINICIAN: VALDEMAR GUARDADO TECHNIQUE: Axial CT images of the neck were obtained. The patient received 95 cc Optiray 350 intravenous contrast agent. The images were reformatted in angled axial, coronal and sagittal planes. FINDINGS: Oral Cavity, Pharynx and Larynx: The oral cavity is unremarkable. There is a large mass which appears centered within the left nasopharynx, however crosses the midline and extends into the nasopharynx on the right. The mass measures a proximally 4.2 x 3.5 x 4.6 cm transverse by AP by cc on image 45 series 201 and image 58 series 203. Anteriorly there is slight extension into the posterior left nasopharynx as well as abutment of the pterygoid plates. Laterally on the left there is abutment of the medial pterygoid muscle. There is decreased fat signal within the left pterygoid palatine fossa. Posteriorly the mass abuts the prevertebral muscles and abuts the left cervical internal carotid artery at the level of the skull base with at least 180 degrees of contact. Inferiorly the mass extends to the level of the oropharynx. No definite involvement of the clivus is noted. Base of tongue, epiglottis and right tonsillar region are unremarkable. Hypopharynx and larynx are unremarkable. Retropharyngeal and Prevertebral Soft Tissues: Unremarkable. Lymph nodes: There are numerous enlarged lymph nodes on the left. Left 1 B lymph node measures 2.0 x 1.5 cm (image 75 series 201). Left level 2A lymph node measures 1.7 x 1.0 cm (image 64 series 201). Left level 2 lymph node posterior to the jugular vein measures 1.5 x 1.6 cm (image 71 series 201). There are additional greater than expected borderline enlarged left level 2, level 3 level 4 and supraclavicular lymph nodes. No cervical lymphadenopathy within the right neck, however there are greater than expected small lymph nodes at level 2, level 3, level 4 and the supraclavicular region. Neck vessels: Bilateral neck vessels are normal in course and caliber and appear patent. Atherosclerotic calcification at the carotid bifurcation bilaterally. Thyroid gland: The thyroid gland is unremarkable in size and appearance. Parotid and submandibular glands: Bilateral parotid and submandibular glands are unremarkable in appearance. Paranasal Sinuses and Mastoids: Visualized paranasal sinuses and bilateral mastoids are predominantly clear. Limited images through the lung apices demonstrates respiratory motion artifact and dependent atelectasis. Degenerative changes of the cervical spine. 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 Inferiorly the mass extends to the level of the left oropharynx. The mass abuts the left lateral pterygoid and prevertebral muscles and abuts the left cervical internal carotid artery at the level of the skull base spinal 180 degrees. There is loss of fat signal within the left pterygoid palatine fossa which may represent perineural involvement. No definite involvement of the clivus is noted. There is lymphadenopathy throughout the left neck. 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 MACRO: None Signed by: Deiys Antonio 03/05/2024 12:34 PM Dictation workstation: [id number] [facility] Absolute lymphocyte countOrd ered By: Tarik Roque on 10-03-2023 Lymphocytes Auto (Unsp spec) [#/Vol] 1.58 10*3/uL 0.83-4.51 [facility] Basophil percentageOrdered B y: Tarik Roque on 10-03-2023 Basophils/100 WBC (Bld) 0.9 % 0-1 [facility] Eosinophils/100 WBC (Bld) 4.3 % 0-5 [facility] Neutrophils (Bld) [#/Vol] 4.9 10*3/uL 2.0-7.7 [facility] Neutrophils/100 WBC (Bld) 65.8 % 47-70 [facility] WBC (Bld) [#/Vol] 7.5 10*3/uL 4.4-11.0 [facility] Blood erythrocytes count (nu mber/volume)Ordered By: Tarik Roque on 10-03-2023 RBC (Bld) [#/Vol] 4.44 10*6/uL 4.2-5.4 [facility] Blood hemoglobin measurement (mass/volume)Ordered By: Tarik Roque on 10-03-2023 Hemoglobin (Bld) [Mass/Vol] 11.8 g/dL 12.0-15.0 [facility] Blood lymphocytes/100 leukoc ytesOrdered By: Tarik Roque on 10-03-2023 Lymphocytes/100 WBC (Bld) 21.2 % 19-41 [facility] Blood monocytes/100 leukocyt esOrdered By: Tarik Roque on 10-03-2023 Monocytes/100 WBC (Bld) 7.4 % 0-10 [facility] Blood platelet mean volumeOr dered By: Tarik Roque on 10-03-2023 Platelet mean volume (Bld) [Entitic vol] 10.4 fL 6.2-12.0 [facility] Determination of erythrocyte mean corpuscular volume (MCV)Ordered By: Tarik Roque on 10-03-2023 MCV (RBC) [Entitic vol] 86.7 fL 81-99 [facility] Erythrocyte sedimentation ra teOrdered By: Tarik Roque on 10-03-2023 ESR (Bld) [Velocity] 14 mm/h 0-30 [facility] Hematocrit Auto (Bld) [Volum e fraction]Ordered By: Tarik Roque on 10-03-2023 Hematocrit (Bld) [Volume fraction] 38.5 % 37-47 [facility] - Hematology and Cell countsOrdered By: Tarik Roque on 10-03-2023 Erythrocyte distribution width (RBC) [Entitic vol] 49.5 fL 35.1-43.9 [facility] Erythrocyte distribution width (RBC) [Ratio] 15.6 % 11.6-14.6 [facility] Immature granulocytes/100 WBC (Bld) 0.400 % 0.0-0.9 [facility] Comment on above: IG% - Immature Granu locytes (promyelocytes, myelocytes and metamyelocytes) > 1% indicates that a LEFT SHIFT is Present. MCH (RBC) [Entitic mass] 26.6 pg 27.0-32.0 [facility] Nucleated RBC/100 WBC (Bld) [Ratio] 0 % 0-5 [facility] MCHC Auto (RBC) [Mass/Vol]Or dered By: Tarik Roque on 10-03-2023 MCHC (RBC) [Mass/Vol] 30.6 g/dL 32-36 [facility] Platelets bldOrdered By: Rafita Roque on 10-03-2023 Platelets (Bld) [#/Vol] 293 10*3/uL 150-450 [facility] Serum or plasma C reactive p rotein measurement (mass/volume)Ordered By: Tarik Roque on 10-03-2023 CRP [Mass/Vol] 4.44 mg/L 0.0-3.0 [facility] Comment on above: C-Reactive Protein ( CRP) provides useful information for thediagnosis, therapy and monitoring of inflammatory processesand associated diseases. For the evaluation of Relative Riskfor Cardiovascular Disease, a High Sensitivity CRP (HSCRP)should be ordered. Culture, urineOrdered By: Ra macey Harrison on 08-20-2023 Bacteria identified Cx Nom (U) Presumptive E. coli [facility] Basophil percentageOrdered B y: Gee David on 03-27-2023 Chloride [Moles/Vol] 105 mmol/L 98-107 [facility] Glucose [Mass/Vol] 180 mg/dL 74-106 [facility] Comment on above: Fasting Glucose resu lt greater than or equal to 126 mg/dL suggests DIABETES MELLITUS per A.D.A. criteria. Potassium [Moles/Vol] 4.3 mmol/L 3.5-5.1 [facility] Sodium [Moles/Vol] 138 mmol/L 136-145 [facility] WBC (Bld) [#/Vol] 8.9 10*3/uL 4.4-11.0 [facility] Blood erythrocytes count (nu mber/volume)Ordered By: Gee David on 03-27-2023 RBC (Bld) [#/Vol] 4.48 10*6/uL 4.2-5.4 [facility] Blood hemoglobin measurement (mass/volume)Ordered By: Gee David on 03-27-2023 Hemoglobin (Bld) [Mass/Vol] 11.7 g/dL 12.0-15.0 [facility] Blood platelet mean volumeOr dered By: Gee David on 03-27-2023 Platelet mean volume (Bld) [Entitic vol] 10.0 fL 6.2-12.0 [facility] Determination of erythrocyte mean corpuscular volume (MCV)Ordered By: Gee David on 03-27-2023 MCV (RBC) [Entitic vol] 84.4 fL 81-99 [facility] Hematocrit Auto (Bld) [Volum e fraction]Ordered By: Gee David on 03-27-2023 Hematocrit (Bld) [Volume fraction] 37.8 % 37-47 [facility] - Chemistry and C hemistry - challengeOrdered By: Gee David on 03-27-2023 CO2 [Moles/Vol] 27.0 mmol/L 21.0-32.0 [facility] Urea nitrogen/Creatinine [Mass ratio] 27.9 mg/mg 10-20 [facility] - Hematology and Cell countsOrdered By: Gee David on 03-27-2023 Erythrocyte distribution width (RBC) [Entitic vol] 46.2 fL 35.1-43.9 [facility] Erythrocyte distribution width (RBC) [Ratio] 15.1 % 11.6-14.6 [facility] MCH (RBC) [Entitic mass] 26.1 pg 27.0-32.0 [facility] MCHC Auto (RBC) [Mass/Vol]Or dered By: Gee David on 03-27-2023 MCHC (RBC) [Mass/Vol] 31.0 g/dL 32-36 [facility] No Panel InformationOrdered By: Gee David on 03-27-2023 Estimated GFR (MDRD) Amer 87 mL/min >60 [facility] Comment on above: GFR Calc Estimated GFR (MDRD) Non-Af Amer 72 mL/min >60 [facility] Comment on above: Non- GFR Calc Platelets bldOrdered By: Pollo David on 03-27-2023 Platelets (Bld) [#/Vol] 347 10*3/uL 150-450 [facility] Serum or plasma calcium kavita urement (mass/volume)Ordered By: Gee David on 03-27-2023 Calcium [Mass/Vol] 8.8 mg/dL 8.5-10.1 [facility] Serum or plasma creatinine m easurement (mass/volume)Ordered By: Gee David on 03-27-2023 Creatinine [Mass/Vol] 0.82 mg/dL 0.55-1.02 [facility] Comment on above: The validity of the calculated GFR & GFRAA in patients over 70 years has not been determined. Clinical correlation is essential. Serum or plasma urea nitroge n measurement (mass/volume)Ordered By: Gee David on 03-27-2023 Urea nitrogen [Mass/Vol] 23 mg/dL 7-18 [facility] Thin prep Papanicolaou smear with manual screeningOrdered By: Gee David on 03-27-2023 Thin prep Papanicolaou smear with manual screening 6 5-15 [facility] Absolute lymphocyte countOrd ered By: Dr. Gamble on 12-27-2022 Lymphocytes Auto (Unsp spec) [#/Vol] 1.61 10*3/uL 0.83-4.51 [facility] Basophil percentageOrdered B y: Dr. Gamble on 12-27-2022 Basophils/100 WBC (Bld) 1.0 % 0-1 [facility] Bilirubin [Mass/Vol] 0.40 mg/dL 0.20-1.00 [facility] Comment on above: For patients on eltr ombopag therapy, use of Dimension Hurley TBIL is not recommended. Chloride [Moles/Vol] 104 mmol/L 98-107 [facility] Cholesterol [Mass/Vol] 123 mg/dL <200 [facility] Comment on above: <200 mg/dL Desirable 200-240 mg/dL Borderline >240 mg/dL High Risk Eosinophils/100 WBC (Bld) 4.8 % 0-5 [facility] Glucose [Mass/Vol] 68 mg/dL 74-106 [facility] Neutrophils (Bld) [#/Vol] 3.4 10*3/uL 2.0-7.7 [facility] Neutrophils/100 WBC (Bld) 57.9 % 47-70 [facility] Potassium [Moles/Vol] 4.1 mmol/L 3.5-5.1 [facility] Protein [Mass/Vol] 6.9 g/dL 6.4-8.2 [facility] Sodium [Moles/Vol] 139 mmol/L 136-145 [facility] Triglyceride [Mass/Vol] 70 mg/dL <199 [facility] Comment on above: The drugs N-Acetylcy steine and Metamizole may falsely depress this assay.Serum Triglycerides Reference Interval Normal <150 mg/dL Borderline high 150 - 199 mg/dL High 200 - 499 mg/dL Very High > or = 500 mg/dL WBC (Bld) [#/Vol] 5.8 10*3/uL 4.4-11.0 [facility] Blood erythrocytes count (nu mber/volume)Ordered By: Dr. Gamble on 12-27-2022 RBC (Bld) [#/Vol] 4.34 10*6/uL 4.2-5.4 [facility] Blood hemoglobin measurement (mass/volume)Ordered By: Dr. Gamble on 12-27-2022 Hemoglobin (Bld) [Mass/Vol] 11.3 g/dL 12.0-15.0 [facility] Blood lymphocytes/100 leukoc ytesOrdered By: Dr. Gamble on 12-27-2022 Lymphocytes/100 WBC (Bld) 27.8 % 19-41 [facility] Blood monocytes/100 leukocyt esOrdered By: Dr. Gamble on 12-27-2022 Monocytes/100 WBC (Bld) 8.3 % 0-10 [facility] Blood platelet mean volumeOr dered By: Dr. Gamble on 12-27-2022 Platelet mean volume (Bld) [Entitic vol] 10.0 fL 6.2-12.0 [facility] Determination of erythrocyte mean corpuscular volume (MCV)Ordered By: Dr. Gamble on 12-27-2022 MCV (RBC) [Entitic vol] 85.7 fL 81-99 [facility] Hematocrit Auto (Bld) [Volum e fraction]Ordered By: Dr. Gamble on 12-27-2022 Hematocrit (Bld) [Volume fraction] 37.2 % 37-47 [facility] - Chemistry and C hemistry - challengeOrdered By: Dr. Gamble on 12-27-2022 ALP [Catalytic activity/Vol] 75 U/L 45-117 [facility] ALT [Catalytic activity/Vol] 21 U/L 13-56 [facility] CO2 [Moles/Vol] 31.0 mmol/L 21.0-32.0 [facility] Globulin (S) [Mass/Vol] 3.4 g/dL 2.2-4.2 [facility] Urea nitrogen/Creatinine [Mass ratio] 24.4 mg/mg 10-20 [facility] - Hematology and Cell countsOrdered By: Dr. Gamble on 12-27-2022 Erythrocyte distribution width (RBC) [Entitic vol] 51.1 fL 35.1-43.9 [facility] Erythrocyte distribution width (RBC) [Ratio] 16.2 % 11.6-14.6 [facility] Immature granulocytes/100 WBC (Bld) 0.200 % 0.0-0.9 [facility] Comment on above: IG% - Immature Granu locytes (promyelocytes, myelocytes and metamyelocytes) > 1% indicates that a LEFT SHIFT is Present. MCH (RBC) [Entitic mass] 26.0 pg 27.0-32.0 [facility] Nucleated RBC/100 WBC (Bld) [Ratio] 0 % 0-5 [facility] MCHC Auto (RBC) [Mass/Vol]Or dered By: Dr. Gamble on 12-27-2022 MCHC (RBC) [Mass/Vol] 30.4 g/dL 32-36 [facility] No Panel InformationOrdered By: Dr. Gamble on 12-27-2022 Estimated GFR (MDRD) Amer 87 mL/min >60 [facility] Comment on above: GFR Calc Estimated GFR (MDRD) Non-Af Amer 72 mL/min >60 [facility] Comment on above: Non- GFR Calc Urine Microalbumin/Creatinine Ratio 5.4 mg/g CRE <30 [facility] Platelets bldOrdered By: Dr. Gamble on 12-27-2022 Platelets (Bld) [#/Vol] 329 10*3/uL 150-450 [facility] Serum or plasma albumin kavita urement (mass/volume)Ordered By: Dr. Gamble on 12-27-2022 Albumin [Mass/Vol] 3.5 g/dL 3.2-5.0 [facility] Serum or plasma albumin/glob ulin mass ratioOrdered By: Dr. Gamble on 12-27-2022 Albumin/Globulin [Mass ratio] 1.0 {ratio} 0.9-2.4 [facility] Serum or plasma calcium kavita urement (mass/volume)Ordered By: Dr. Gamble on 12-27-2022 Calcium [Mass/Vol] 8.7 mg/dL 8.5-10.1 [facility] Serum or plasma cholesterol in HDL measurement (mass/volume)Ordered By: Dr. Gamble on 12-27-2022 Cholesterol in HDL [Mass/Vol] 63 mg/dL >40 [facility] Comment on above: The drugs N-Acetylcy steine and Metamizole may falsely depress this assay. Reference Range HDL <40 mg/dL Low HDL Cholesterol HDL >or= 60 mg/dL High HDL Cholesterol Serum or plasma cholesterol in VLDL measurement (mass/volume)Ordered By: Dr. Gamble on 12-27-2022 Cholesterol in VLDL [Mass/Vol] 14 mg/dL 5-40 [facility] Serum or plasma creatinine m easurement (mass/volume)Ordered By: Dr. Gamble on 12-27-2022 Creatinine [Mass/Vol] 0.82 mg/dL 0.55-1.02 [facility] Comment on above: The validity of the calculated GFR & GFRAA in patients over 70 years has not been determined. Clinical correlation is essential. Serum or plasma low density lipoprotein (LDL) cholesterol measurement (mass/volume)Ordered By: Dr. Gamble on 12-27-2022 Cholesterol in LDL [Mass/Vol] 46 mg/dL 0-130 [facility] Serum or plasma urea nitroge n measurement (mass/volume)Ordered By: Dr. Gamble on 12-27-2022 Urea nitrogen [Mass/Vol] 20 mg/dL 7-18 [facility] Thin prep Papanicolaou smear with manual screeningOrdered By: Dr. Gamble on 12-27-2022 Thin prep Papanicolaou smear with manual screening 17 U/L 15-37 [facility] Thin prep Papanicolaou smear with manual screening 4 5-15 [facility] Thin prep Papanicolaou smear with manual screening 5.8 mg/L NO RANGE EST. [facility] Urine creatinine measurement (mass/volume)Ordered By: Dr. Gamble on 12-27-2022 Creatinine (U) [Mass/Vol] 107.00 mg/dL NO RANGE EST. [facility] Whole blood hemoglobin A1c/t otal hemoglobin ratio (mass fraction)Ordered By: Dr. Gamble on 12-27-2022 HbA1c (Bld) [Mass fraction] 7.0 % 3.8-5.6 [facility] Comment on above: Normal < 5.7 % Predi abetic 5.7 - 6.4 % Diabetic >or= 6.5 % Please note range changes. Culture, urine Bacteria identified Cx Nom (U) Klebsiella pneumoniae sp pneum [facility] Work Phone: Vital Signs Date Time Vital Sign Value Performing Clinician Facility 02-25-2025 15:55-0400 Body height 160.[address] Lisa Gamble DO Work Phone: [facility] 02-25-2025 15:55-0400 Body mass index (BMI) [Ratio] 37.8 kg/m2 Dr. Lisa Gamble DO Work Phone: [facility] 02-25-2025 15:55-0400 Body temperature 97.7 [degF] Dr. Lisa Gamble DO Work Phone: [facility] 02-25-2025 15:55-0400 Body weight 96.[address] Lisa Gamble DO Work Phone: [facility] 02-25-2025 15:55-0400 Diastolic blood pressure 68 mm[Hg] Dr. Lisa Gamble DO Work Phone: [facility] 02-25-2025 15:55-0400 Heart rate 77 /min Dr. Lisa Gamble DO Work Phone: [facility] 02-25-2025 15:55-0400 Respiratory rate 18 /min Dr. Lisa Gamble DO Work Phone: [facility] 02-25-2025 15:55-0400 SaO2% (BldA) [Mass fraction] 94 % Dr. Lisa Gamble DO Work Phone: [facility] 02-25-2025 15:55-0400 Systolic blood pressure 134 mm[Hg] Dr. Lisa Gamble DO Work Phone: [facility] 02-24-2025 14:08-0400 Body height 160.[address] Lisa Gamble DO Work Phone: [facility] 02-24-2025 14:04-0400 Body mass index (BMI) [Ratio] 37.8 kg/m2 Dr. Lisa Gamble DO Work Phone: [facility] 02-24-2025 14:04-0400 Body temperature 98.2 [degF] Dr. Lisa Gamble DO Work Phone: [facility] 02-24-2025 14:04-0400 Body weight 96.[address] Lisa Gamble DO Work Phone: [facility] 02-24-2025 14:04-0400 Diastolic blood pressure 71 mm[Hg] Dr. Lisa Gamble DO Work Phone: [facility] 02-24-2025 14:04-0400 Heart rate 78 /min Dr. Lisa Gamble DO Work Phone: [facility] 02-24-2025 14:04-0400 Respiratory rate 16 /min Dr. Lisa Gamble DO Work Phone: [facility] 02-24-2025 14:04-0400 SaO2% (BldA) [Mass fraction] 94 % Dr. Lisa Gamble DO Work Phone: [facility] 02-24-2025 14:04-0400 Systolic blood pressure 121 mm[Hg] Dr. Lisa Gamble DO Work Phone: [facility] 01-05-2025 09:59-0400 Heart rate 68 /min Dr. Lisa Gamble DO Work Phone: [facility] 01-05-2025 09:53-0400 Diastolic blood pressure 52 mm[Hg] Dr. Lisa Gamble DO Work Phone: [facility] 01-05-2025 09:53-0400 Systolic blood pressure 107 mm[Hg] Dr. Lisa Gamble DO Work Phone: [facility] 01-05-2025 07:58-0400 Body temperature 96.3 [degF] Dr. Lisa Gamble DO Work Phone: [facility] 01-05-2025 07:58-0400 Respiratory rate 12 /min Dr. Lisa Gamble DO Work Phone: [facility] 01-05-2025 07:58-0400 SaO2% (BldA) [Mass fraction] 98 % Dr. Lisa Gamble DO Work Phone: [facility] 01-03-2025 04:34-0400 Body mass index (BMI) [Ratio] 36.6 kg/m2 Dr. Lisa Gamble DO Work Phone: [facility] 01-03-2025 04:34-0400 Body weight 93.[address] Lisa Gamble DO Work Phone: [facility] 12-30-2024 00:24-0400 Body temperature 98.6 [degF] Dr. Lisa Gamble DO Work Phone: [facility] 12-30-2024 00:24-0400 Diastolic blood pressure 71 mm[Hg] Dr. Lisa Gamble DO Work Phone: [facility] 12-30-2024 00:24-0400 Heart rate 76 /min Dr. Lisa Gamble DO Work Phone: [facility] 12-30-2024 00:24-0400 Respiratory rate 18 /min Dr. Lisa Gamble DO Work Phone: [facility] 12-30-2024 00:24-0400 SaO2% (BldA) [Mass fraction] 96 % Dr. Lisa Gamble DO Work Phone: [facility] 12-30-2024 00:24-0400 Systolic blood pressure 152 mm[Hg] Dr. Lisa Gamble DO Work Phone: [facility] 2024 20:09-0400 Body height 157.[address] Lisa Gamble DO Work Phone: [facility] 2024 20:09-0400 Body mass index (BMI) [Ratio] 39.9 kg/m2 Dr. Lisa Gamble DO Work Phone: [facility] 2024 20:09-0400 Body weight 99.[address] Lisa Gamble DO Work Phone: [facility] 10-13-2024 13:57-0500 Body height 158.[address] Lisa Gamble DO Work Phone: [facility] 10-13-2024 13:57-0500 Body mass index (BMI) [Ratio] 37.5 kg/m2 Dr. Lisa Gamble DO Work Phone: [facility] 10-13-2024 13:57-0500 Body temperature 98.3 [degF] Dr. Lisa Gamble DO Work Phone: [facility] 10-13-2024 13:57-0500 Body weight 94.[address] Lisa Gamble DO Work Phone: [facility] 10-13-2024 13:57-0500 Diastolic blood pressure 62 mm[Hg] Dr. Lisa Gamble DO Work Phone: [facility] 10-13-2024 13:57-0500 Heart rate 72 /min Dr. Lisa Gamble DO Work Phone: [facility] 10-13-2024 13:57-0500 Respiratory rate 18 /min Dr. Lisa Gamble DO Work Phone: [facility] 10-13-2024 13:57-0500 SaO2% (BldA) [Mass fraction] 97 % Dr. Lisa Gamble DO Work Phone: [facility] 10-13-2024 13:57-0500 Systolic blood pressure 126 mm[Hg] Dr. Lisa Gamble DO Work Phone: [facility] 08-12-2024 12:53-0500 Body mass index (BMI) [Ratio] 37 kg/m2 Dr. Lisa Gamble DO Work Phone: [facility] 08-12-2024 12:53-0500 Body weight 93.[address] Lisa Gamble DO Work Phone: [facility] 08-12-2024 12:53-0500 Diastolic blood pressure 62 mm[Hg] Dr. Lisa Gamble DO Work Phone: [facility] 08-12-2024 12:53-0500 Heart rate 88 /min Dr. Lisa Gamble DO Work Phone: [facility] 08-12-2024 12:53-0500 Respiratory rate 18 /min Dr. Lisa Gamble DO Work Phone: [facility] 08-12-2024 12:53-0500 SaO2% (BldA) [Mass fraction] 94 % Dr. Lisa Gamble DO Work Phone: [facility] 08-12-2024 12:53-0500 Systolic blood pressure 118 mm[Hg] Dr. Lisa Gamble DO Work Phone: [facility] 05-27-2024 13:27-0400 Body temperature 96.5 [degF] Dr. Lisa Gamble DO Work Phone: [facility] 05-27-2024 13:27-0400 Diastolic blood pressure 59 mm[Hg] Dr. Lisa Gamble DO Work Phone: [facility] 05-27-2024 13:27-0400 Heart rate 66 /min Dr. Lisa Gamble DO Work Phone: [facility] 05-27-2024 13:27-0400 Respiratory rate 16 /min Dr. Lisa Gamble DO Work Phone: [facility] 05-27-2024 13:27-0400 SaO2% (BldA) [Mass fraction] 96 % Dr. Lisa Gamble DO Work Phone: [facility] 05-27-2024 13:27-0400 Systolic blood pressure 136 mm[Hg] Dr. Lisa Gamble DO Work Phone: [facility] 05-19-2024 10:39-0400 Body mass index (BMI) [Ratio] 36.5 kg/m2 Dr. Lisa Gamble DO Work Phone: [facility] 03-17-2024 15:59-0400 Body temperature 98.1 [degF] Valdemar Guardado MD Work Phone: [facility] 03-17-2024 15:59-0400 Diastolic blood pressure 60 mm[Hg] Valdemar Guardado MD Work Phone: [facility] 03-17-2024 15:59-0400 Heart rate 97 /min Valdemar Guardado MD Work Phone: [facility] 03-17-2024 15:59-0400 Respiratory rate 17 /min Valdemar Guardado MD Work Phone: [facility] 03-17-2024 15:59-0400 SaO2% (BldA) [Mass fraction] 97 % Valdemar Guardado MD Work Phone: [facility] 03-17-2024 15:59-0400 Systolic blood pressure 126 mm[Hg] Valdemar Guardado MD Work Phone: [facility] 03-17-2024 10:55-0400 Body height 160 cm Valdemar Guardado MD Work Phone: [facility] 03-17-2024 10:55-0400 Body mass index (BMI) [Ratio] 36.01 kg/m2 Valdemar Guardado MD Work Phone: [facility] 03-17-2024 10:55-0400 Body weight 92.2 kg Valdemar Guardado MD Work Phone: [facility] 02-27-2024 10:24-0400 Body height 158.8 cm Valdemar Guardado MD Work Phone: [facility] 02-27-2024 10:24-0400 Body mass index (BMI) [Ratio] 37.46 kg/m2 Valdemar Guardado MD Work Phone: [facility] 02-27-2024 10:24-0400 Body weight 94.39 kg Valdemar Guardado MD Work Phone: [facility] 11-21-2023 06:55-0500 Body temperature 98 [degF] [facility] 11-21-2023 06:55-0500 Diastolic blood pressure 80 mm[Hg] [facility] 11-21-2023 06:55-0500 Heart rate 66 /min [facility] 11-21-2023 06:55-0500 Respiratory rate 16 /min [facility] 11-21-2023 06:55-0500 SaO2% (BldA) [Mass fraction] 96 % [facility] 11-21-2023 06:55-0500 Systolic blood pressure 165 mm[Hg] [facility] 11-21-2023 05:26-0500 Body height 157.48 cm [facility] 11-21-2023 05:26-0500 Body mass index (BMI) [Ratio] 39.3 kg/m2 [facility] 11-21-2023 05:26-0500 Body weight 97.6 kg [facility] 06-18-2023 11:35-0400 Body height 160.[address] Lisa Gamble Work Phone: [facility] 06-18-2023 11:35-0400 Body mass index (BMI) [Ratio] 38.6 kg/m2 Dr. Lisa Gamble Work Phone: [facility] 06-18-2023 11:35-0400 Body weight 98.[address] Lisa Gamble Work Phone: [facility] 05-15-2022 09:02-0400 Body height 160.[address] Lisa Gamble Work Phone: [facility] Work Phone: 05-15-2022 09:02-0400 Body mass index (BMI) [Ratio] 38.2 kg/m2 Dr. Lisa Gamble Work Phone: [facility] Work Phone: 05-15-2022 09:02-0400 Body weight 97.[address] Lisa Gamble Work Phone: [facility] Work Phone: 05-15-2022 09:02-0400 Diastolic blood pressure 72 mm[Hg] Dr. Lisa Gamble Work Phone: [facility] Work Phone: 05-15-2022 09:02-0400 Heart rate 78 /min Dr. Lisa Gamble Work Phone: [facility] Work Phone: 05-15-2022 09:02-0400 Respiratory rate 16 /min Dr. Lisa Gamble Work Phone: [facility] Work Phone: 05-15-2022 09:02-0400 SaO2% (BldA) [Mass fraction] 96 % Dr. Lisa Gamble Work Phone: [facility] Work Phone: 05-15-2022 09:02-0400 Systolic blood pressure 129 mm[Hg] Dr. Lisa Gamble Work Phone: [facility] Work Phone: Encounters Encounter Date Encounter Type Care Provider Facility Start: 06-21-2025 End: 06-21-2025 ambulatory Lisa Gamble Facility:[facility] Start: 06-14-2025 ambulatory Edenilson Campoverde Facility:[facility] Start: 05-25-2025 End: 05-25-[address] Lisa Gamble DO Work Phone: -Laboratory Specimen Start: 05-25-2025 End: 05-25-[address] Lisa Gamble DO -Laboratory Specimen Work Phone: Start: 05-25-2025 End: 05-25-2025 [facility] Start: 05-04-[address] Edenilson Campoverde MD -[facility] Start: 03-10-2025 End: 03-10-[address] Lisa Gamble DO Work Phone: [facility] Work Phone: Start: 03-10-2025 End: 03-10-[address] Lisa Gamble DO -Outpatient Breast Imaging Work Phone: Start: 03-10-2025 End: 03-10-2025 ambulatory Lisa Gamble Facility:[facility] Start: 02-25-2025 End: 02-25-[address] Edenilson Campoverde MD -[facility] Work Phone: Start: 02-25-2025 End: 02-25-[address] Lisa Gamble DO Work Phone: [facility] Work Phone: Start: 02-24-2025 End: 02-24-[address] Lisa Gamble DO Work Phone: [facility] Work Phone: Start: 02-24-2025 End: 02-24-2025 Patient encounter procedure Gladys AyalaAmador METEOROLOGICAL AIDE-C -Cat Scan [facility] Work Phone: Start: 02-24-[address] Edenilson Campoverde MD -[facility] Start: 02-24-2025 End: 02-24-2025 Patient encounter procedure Gladys AyalaAmador METEOROLOGICAL AIDE-C -[facility] Work Phone: Start: 02-24-2025 End: 02-24-[address] Lisa Gamble DO Work Phone: [facility] Work Phone: Start: 02-24-2025 End: 02-24-2025 ambulatory Gladys Amador METEOROLOGICAL AIDE Facility:[facility] Start: 02-09-[address] Edenilson Campoverde MD -[facility] Start: 01-13-2025 ambulatory Tarik Roque Facility: [facility] Start: 01-05-2025 Non-patient / Non-visit Dr. Rosy rivera MD -[facility] Work Phone: Start: 01-04-2025 Non-patient / Non-visit Dr. Rosy rivera MD -[facility] Work Phone: Start: 01-03-2025 Non-patient / Non-visit Dr. Terrance Harrell MD -[facility] Work Phone: Start: 01-02-2025 Non-patient / Non-visit Dr. Terrance Harrell MD -[facility] Work Phone: Start: 01-01-2025 Non-patient / Non-visit Koki ca METEOROLOGICAL AIDE-C -[facility] Start: 12-31-2024 ambulatory Terrance Harrell Facility: [facility] Start: 12-31-2024 End: 01-05-2025 Evaluation and management of inpatient Dr. Rosy Nguyen MD -Medical Surgical 3 Work Phone: Start: 12-31-2024 Non-patient / Non-visit Dr. Terrance Harrell MD -[facility] Work Phone: Start: 12-30-2024 [facility] Start: 12-30-2024 Evaluation and manag ement of inpatient Dr. Chey Clark MD -Medical Surgical 3 Work Phone: Start: 12-30-2024 Non-patient / Non-visit Dr. Josefina Clark MD -[facility] Work Phone: Start: 12-30-[address] Lisa Gamble DO Work Phone: [facility] Work Phone: Start: 12-08-[address] Edenilson Campoverde MD -[facility] Start: 11-24-2024 ambulatory [facility] Facility: [place] Start: 11-24-2024 Non-patient / Non-visit Dr. Polina pickard MD -[facility]- Start: 11-24-2024 End: 11-24-[address] iLsa Gamble DO Work Phone: [facility] Work Phone: Start: 11-24-2024 End: 11-24-[address] Carol Ann Antunez DPChai -Pulmonary Services/Neurology Work Phone: Start: 11-24-2024 End: 11-24-2024 ambulatory [facility] Facility:[facility] Start: 10-13-[address] Edenilson Campoverde MD -[facility] Start: 10-13-2024 End: 10-13-[address] Edenilson Campoverde MD -[facility] Work Phone: Start: 10-13-2024 End: 10-13-2024 ambulatory [facility] Facility:[facility] Start: 08-12-2024 End: 08-12-2024 Patient encounter procedure Arslan MCKENZIE -[facility] Work Phone: Start: 08-12-2024 End: 08-12-2024 ambulatory [facility] Facility:[facility] Start: 07-21-2024 End: 07-21-2024 ambulatory Malys Facility:[facility] Start: 06-29-2024 End: 06-29-2024 [facility] Start: 04-01-2024 Telephone encounter Bryce king DO Work Phone: Hematology/Oncology Start: 03-17-2024 End: 03-17-[address] [facility] Start: 03-17-2024 End: 03-17-2024 Subsequent hospital visit by physician Valdemar Guardado MD Work Phone: [facility] Comment on above: Nasopharyngeal mass Start: 03-10-2024 End: 03-10-[address] [facility] Start: 03-10-2024 End: 03-10-2024 Encounter for other preprocedural examination [facility] Start: 03-10-2024 End: 03-10-2024 Encounter for preprocedural cardiovascular examination [facility] Start: 03-10-2024 End: 03-10-2024 Encounter for preprocedural respiratory examination [facility] Start: 03-05-2024 End: 03-05-2024 Subsequent hospital visit by physician Eitan Garcia[address] [facility] Comment on above: Nasopharyngeal mass Start: 03-05-2024 End: 03-05-[address] [facility] Start: 02-27-2024 End: 02-27-2024 Office outpatient new 45 minutes Valdemar Guardado MD Work Phone: [facility] Comment on above: Nasopharyngeal mass Start: 02-27-2024 End: 02-27-[address] [facility] Start: 01-28-2024 End: 01-28-2024 ambulatory [facility] Work Phone: Start: 01-28-2024 End: 01-28-2024 Patient encounter procedure [facility]-Cat Scan, [facility] Work Phone: Start: 11-21-2023 End: 11-21-2023 Emergency department patient visit [facility]-Emergency Department Work Phone: Start: 11-01-2023 End: 11-01-2023 ambulatory [facility] Work Phone: Start: 11-01-2023 End: 11-01-2023 Discharged Recurring [facility]-Physical Therapy Work Phone: Start: 11-01-2023 Registered Recurring [facility]-Physical Therapy Work Phone: Start: 10-07-[address] Lsia Gamble Work Phone: [facility]-Physical Therapy Work Phone: Start: 10-03-2023 End: 10-03-[address] Lisa Gamble Work Phone: [facility] Work Phone: Start: 10-03-2023 End: 10-03-[address] [facility] [place] Start: 08-20-2023 End: 08-20-[address] Lisa Gamble Work Phone: [facility] Work Phone: Start: 08-20-2023 End: 08-20-[address] [facility] Work Phone: Start: 06-18-2023 End: 06-18-[address] Lisa Gamble Work Phone: [facility] Work Phone: Start: 04-01-2023 Non-patient / Non-visit Dr. Rebecca Gam[facility] Start: 04-01-2023 End: 04-01-[address] Lisa Gamble Work Phone: [facility] Work Phone: Start: 04-01-2023 End: 04-01-[address] Lisa Gamble Work Phone: [facility]-Cardiovascula r Services Work Phone: Start: 03-27-2023 End: 03-27-[address] Lisa Gamble Work Phone: [facility] Work Phone: Start: 03-27-2023 End: 03-27-[address] Lisa Gamble Work Phone: [facility]-Pulmonary Services/Neurology Work Phone: Start: 03-22-[address] Ny Gamble Work Phone: [facility] Start: 02-28-2023 End: 02-28-2023 ambulatory [facility] Work Phone: Start: 02-28-2023 End: 02-28-2023 Patient encounter procedure [facility]-Outpatient Breast Imaging Start: 12-27-2022 End: 12-27-2022 ambulatory [facility] Work Phone: Start: 12-27-2022 End: 12-27-2022 Patient encounter procedure [facility]-Laboratory, Michelle Brar [facility] Start: 07-11-2022 End: 07-11-[address] Lisa Gamble Work Phone: [facility] Work Phone: Start: 07-11-2022 End: 07-11-[address] Lisa Gamble Work Phone: [facility]-Laboratory, Specimen Start: 05-15-2022 End: 05-15-[address] Lisa Gamble Work Phone: [facility] Start: 03-09-2022 End: 03-09-2022 Patient encounter procedure [facility]-Outpatient Breast Imaging Start: 02-27-2022 End: 02-27-2022 Patient encounter procedure [facility]-Outpatient Breast Imaging Start: 11-15-2021 Registered Recurring [facility]Mass[facility], [facility] Procedures Date Procedure Procedure Detail Performing Clinician Start: 05-25-[address] Lisa Gamble DO Work Phone: Start: 03-10-2025 Screening mammography Veronica Gamble DO Work Phone: Start: 02-24-2025 Computed tomography of soft tissues of neck without contrast Dr. Lisa Gamble DO Work Phone: Start: 02-24-2025 CT of chest, abdomen and pelvis without contrast Dr. Lisa Gamble DO Work Phone: Start: 02-24-[address] Lisa Gamble DO Work Phone: Start: 01-01-[address] Lisa Gamble DO Work Phone: Start: 01-01-2025 Gram stain microscopy D aaron Gamble DO Work Phone: Start: 01-01-2025 End: 01-01-2025 Microbial culture, body fluid Dr. Lisa Gamble DO Work Phone: Start: 01-01-[address] Lisa Gamble DO Work Phone: Start: 01-01-[address] Lisa Gamble DO Work Phone: Start: 12-30-2024 MRI of lower extremity Dr. Lisa Gamble DO Work Phone: Start: 2024 Plain radiography of pelvis Dr. Lisa Gamble DO Work Phone: Start: 2024 Plain X-ray of femur Dr Angelica Gamble DO Work Phone: Start: 10-13-[address] Lisa Gamble DO Work Phone: Start: 10-13-2024 Measurement of renal function Dr. Lisa Gamble DO Work Phone: Comment on above: GFR Calc Start: 07-21-2024 Total iron binding capacity measurement Dr. Lisa Gamble DO Work Phone: Start: 05-19-2024 PET study for locali zation of tumor Dr. Lisa Gamble DO Work Phone: Start: 05-05-2024 Assay of phosphorus inorganic Dr. Lisa Gamble DO Work Phone: Start: 04-23-2024 Diagnostic radiograp hy of abdomen Dr. Lisa Gamble DO Work Phone: Start: 04-08-2024 Albumin/Globulin ratio Dr. Lisa Gamble DO Work Phone: Start: 04-08-2024 Hepatitis B surface antibody measurement Dr. Lisa Gamble DO Work Phone: Comment on above: Non Reactive: Incons istent with immunity, less than 10 mIU/mL Reactive: Consistent with immunity, greater than 9.9 mIU/mL Start: 04-08-2024 Hepatitis C virus recombinant immunoblot measurement Dr. Lisa Gamble DO Work Phone: Start: 04-08-[address] Lisa Gamble DO Work Phone: Start: 04-08-2024 Urine lambda light c carlos measurement Dr. Lisa Gamble DO Work Phone: Start: 03-17-2024 Glucose quantitative blood xcpt reagent strip Valdemar Guardado MD Work Phone: Start: 03-17-2024 PULSE OXIMETRY, CONTINUOUS Julieta Mason MD Work Phone: Start: 03-17-2024 Glucose quantitative blood xcpt reagent strip Valdemar Guardado MD Work Phone: Start: 03-05-2024 Ct soft tissue neck w/contrast material Valdemar Guardado MD Work Phone: Start: 01-28-2024 CT of face Start: 08-20-[address] Lisa Gamble Work Phone: Start: 04-01-2023 Cardiovascular stres s test using pharmacologic stress agent Dr. Lisa Gamble Work Phone: Start: 02-28-2023 Screening mammography Start: 02-27-2022 Screening mammography Start: 05-26-2019 History of placement of stent for coronary artery disease History of coronary artery stent placement Arslan Alex [facility] Comment on above: [id number]-Ngf-LAD w/ S ynery 2.50 x 38 mm Synergy MR and CHLOÉ-OM1 w/ 2.5 x 17 mm Elunir Stent 05/26/[address] Lisa Gamble Work Phone: Plan of Treatment Date Care Activity Detail Author Start: 07-09-2033 DTaP/Tdap/Td Vaccine s (2 - Td or Tdap) DTaP/Tdap/Td Vaccines (2 - Td or Tdap) [facility] Start: 03-10-2027 Diabetes Screening Diabetes Screenin [facility] Start: 01-05-2025 Patient discharge [facility] Start: 01-03-2025 Consultation [facility] Start: 01-01-2025 Provision of activit y privileges [facility] Start: 12-31-2024 Admission procedure [facility] Start: 12-31-2024 [facility] Start: 12-31-2024 [facility] Start: 12-30-2024 Consultation [facility] Start: 12-30-2024 Following clinical pathway protocol [facility] Start: 12-30-2024 Assessment of risk o f venous thromboembolism [facility] Start: 12-30-2024 Care regimes management [facility] Start: 12-30-2024 Fall prevention [facility] Start: 12-30-2024 Inhalation therapy procedure [facility] Start: 12-30-2024 Insertion of cathete r into peripheral vein [facility] Start: 12-30-2024 Introduction of urin leticia catheter [facility] Start: 12-30-2024 Measuring intake and output [facility] Start: 12-30-2024 Notification of physician [facility] Start: 12-30-2024 Providing care accor ding to standard [facility] Start: 12-30-2024 Provision of activit y privileges [facility] Start: 12-30-2024 Referral to occupati onal therapist [facility] Start: 12-30-2024 Referral to service [facility] Start: 12-30-2024 End: 12-30-2024 [facility] Start: 12-30-2024 Verification routine [facility] Start: 12-30-2024 Hospital admission, emergency, from emergency room, medical nature [facility] Start: 12-30-2024 Admission procedure [facility] Start: 05-31-2024 Influenza vaccination Influenza Vacc ine (#1) [facility] Start: 05-27-2024 Vital signs measurements [facility] Start: 05-26-2024 Vital signs measurements [facility] Start: 05-06-2024 Vital signs measurements [facility] Start: 05-05-2024 Venous catheter care management [facility] Start: 05-05-2024 Vital signs measurements [facility] Start: 04-15-2024 Vital signs measurements [facility] Start: 04-14-2024 Vital signs measurements [facility] Start: 03-17-2024 End: 03-17-2024 Nasal endoscopy diagnostic uni/bi spx Nasal Endoscopy Nasopharyngeal mass 03/17/2024 12:22 PM EDT Virtual [facility] [place] Start: 02-27-2024 End: 02-26-2025 Creatinine [Mass/volume] in Serum or Plasma Creatinine Lab Routine Nasopharyngeal mass Expected: 02/27/2024 (Approximate), Expires: 02/26/2025 [facility] Work Phone: Comment on above: Expected: 02/27/2024 (Approximate), Expires: 02/26/2025 Start: 02-27-2024 End: 02-26-2025 CT Neck W contrast IV CT soft tissue neck w IV contrast Imaging Routine Nasopharyngeal mass Expected: 02/27/2024, Expires: 02/26/2025 [facility] Work Phone: Comment on above: Expected: 02/27/2024 , Expires: 02/26/2025 Start: 02-27-2024 End: 02-26-2025 Urea nitrogen [Mass/volume] in Serum or Plasma Blood Urea Nitrogen Lab Routine Nasopharyngeal mass Expected: 02/27/2024 (Approximate), Expires: 02/26/2025 [facility] Work Phone: Comment on above: Expected: 02/27/2024 (Approximate), Expires: 02/26/2025 Start: 11-21-2023 [facility] Start: 11-09-2023 COVID-19 Vaccine ( season) COVID-19 Vaccine ( season) [facility] Start: 09-30-2023 Advance Directive Discussion Advance Directive Discussion [facility] Start: 09-30-2023 Behavioral Health Screening Behavioral Health Screening [facility] Start: 05-31-2023 Covid-19 Vaccine ( season) Covid-19 Vaccine ( season) [facility] Start: 03-09-2022 Ultrasonography of breast [facility] Work Phone: Start: 12-28-2012 Pneumococcal Vaccine : 65+ (1 of 1 - PCV) Pneumococcal Vaccine: 65+ (1 of 1 - PCV) [facility] Start: 12-28-2012 Screening for osteoporosis Bone Density Screening [facility] Start: 2007 RSV Vaccine (1 - 1-d ose 60+ series) RSV Vaccine (1 - 1-dose 60+ series) [facility] Start: 12-28-1997 Shingrix Vaccine (1 of 2) Gramajo grix Vaccine (1 of 2) [facility] Start: 12-28-1997 Zoster Vaccines (1 of 2) Zoster Vacc fidel (1 of 2) [facility] Start: 12-28-1966 Urine microalbumin profile DTaP,Tdap,Td Vaccine (1 - Tdap) [facility] Start: 12-28-1966 Urine screening for protein Diabetes: Urine Protein Screening [facility] Start: 12-28-1965 Hepatitis C screening Hepatitis C Sc reemax [facility] Start: 12-28-1957 Diabetic foot examination Diabetes: Foot Exam [facility] Start: 12-28-1957 Glaucoma screening Diabetes: R etinopathy Screening [facility] Start: 1947 Hemoglobin A1c measurement Diabetes: Hemoglobin A1C [facility] Start: 1947 Lipid panel Lipid Panel [facility] Start: 1947 Medicare Annual Well ness Visit Medicare Annual Wellness Visit (AWV) [facility] Start: 1945 Screening for osteoporosis Bone Density Scan [facility] C reactive protein [Mass/volume] in Serum or Plasma [facility] CBC W Auto Different ial panel - Blood [facility] CBC W Auto Different ial panel - Blood [facility] Comprehensive metabo lic 1999 panel - Serum or Plasma [facility] metabo lic 1999 panel - Serum or Plasma [facility] CT Chest and Abdomen and Pelvis WO contrast [facility] CT Neck WO contrast [facility] Erythrocyte sediment ation rate [facility] Ferritin [Mass/volum e] in Serum or Plasma [facility] Flow Cytometry Test Flow Cytomet ry Test Pathology and Cytology Timed Nasopharyngeal mass Release Upon Ordering for 1 Occurrences starting 03/17/2024 [facility] Work Phone: Comment on above: Release Upon Orderin g for 1 Occurrences starting 03/17/2024 End: 03-17-2024 Flow Cytometry Test Flow Cytometry Test Lab Only Timed Nasopharyngeal mass Once for 1 Occurrences starting 03/17/2024 until 03/17/2024 [facility] Work Phone: Comment on above: Once for 1 Occurrenc es starting 03/17/2024 until 03/17/2024 End: 03-17-2024 Glucose [Mass/volume] in Serum or Plasma POCT Glucose Point of Care Testing - Docked Device Routine Once (Lab) for 1 Occurrences starting 03/17/2024 until 03/17/2024 [facility] Work Phone: Comment on above: Once (Lab) for 1 Occ urrences starting 03/17/2024 until 03/17/2024 Iron and Iron bindin g capacity panel - Serum or Plasma [facility] Lactate dehydrogenas e measurement [facility] Lactate dehydrogenas e measurement [facility] Magnesium measurement [facility] Nasal endoscopy diagnostic uni/bi spx Nasal Endoscopy Nasopharyngeal mass Virtual [facility] [place] Patient Education [facility] Work Phone: Patient referral [facility] Work Phone: Surgical pathology study [facility] Work Phone: Comment on above: Release Upon Orderin g for 1 Occurrences starting 03/17/2024, 1 completed Immunizations Immunization Date Immunization Notes Care Provider Fa cility 12-22-2020 Covid (Pfizer) [facility] 12-01-2020 Covid (Pfizer) [facility] 06-30-[address] [facility] 07-14-[address] [facility] 06-30-[address] [facility] 07-02-[address] [facility] 07-17-2016 influenza, injectabl e, quadrivalent, preservative free Dr. Lisa Gamble Work Phone: [facility] 07-17-2016 influenza, seasonal, injectable [facility] 07-26-2015 influenza, high dose seasonal, preservative-free Bryce Wu DO Work Phone: [facility] 07-26-2015 influenza virus vaccine, unspecified formulation Bryce Wu DO Work Phone: [facility] 05-31-[address] [facility] 09-30-2006 Pneumococcal Vaccine [facility] Work Phone: 09-30-2006 pneumococcal vaccine , unspecified formulation [facility] Payers Date Payer Category Payer Self-pay [id number] 2012 Medicare [id number] 2012 Medicare [id number] 2011 Unknown [id number] 2011 Unknown [id number] 1947 Unknown [id number] 2.16.8 40.1.008794.3.579.2.1244 1947 Unknown [id number] 2.16.8 40.1.141276.3.579.2.1245 1947 Unknown [id number] 2.16.8 40.1.390051.3.579.2.1245 1947 Unknown [id number] 2.16.8 40.1.548661.3.579.2.1245 Unknown [id number] 2.16.8 40.1.781016.3.579.2.462 Unknown [id number] 2.16.8 40.1.702466.3.579.2.462 Unknown [id number] 2.16.8 40.1.137173.3.579.2.462 Unknown [id number] 2.16.8 40.1.545977.3.579.2.462 Unknown [id number] 2.16.8 40.1.697673.3.579.2.462 Unknown [id number] 2.16.8 40.1.914011.3.579.2.462 Unknown [id number] 2.16.8 40.1.994153.3.579.2.462 Unknown [id number] 2.16.8 40.1.920318.3.579.2.462 Unknown [id number] 2.16.8 40.1.159371.3.579.2.462 Unknown [id number] 2.16.8 40.1.305550.3.579.2.462 Unknown [id number] 2.16.8 40.1.209088.3.579.2.462 Unknown [id number] 2.16.8 40.1.454463.3.579.2.462 Unknown [id number] 2.16.8 40.1.273015.3.579.2.462 Unknown [id number] 2.16.8 40.1.546549.3.579.2.462 Unknown [id number] 2.16.8 40.1.096472.3.579.2.462 Unknown [id number] 2.16.8 40.1.220288.3.579.2.462 Unknown [id number] 2.16.8 40.1.468787.3.579.2.462 Unknown [id number] 2.16.8 40.1.228009.3.579.2.462 Unknown [id number] 2.16.8 40.1.234475.3.579.2.462 Unknown [id number] 2.16.8 40.1.907132.3.579.2.462 Unknown [id number] 2.16.8 40.1.014559.3.579.2.462 Unknown [id number] 2.16.8 40.1.008280.3.579.2.462 Unknown [id number] 2.16.8 40.1.308472.3.579.2.462 Unknown [id number] 2.16.8 40.1.913105.3.579.2.462 Unknown [id number] 2.16.8 40.1.592768.3.579.2.462 Social History Date Type Detail Facility Start: 05-25-2021 End: 11-21-2023 Tobacco smoking status NHIS Unknown if ever smoked [facility] Start: 10-09-2020 None [facility] Start: 10-09-2020 Spouse/ Signif icant [facility] [facility] Start: 10-09-2020 Non-smoker [facility] Start: 1945 Sex Assigned At Female W [facility] Start: 02-27-2024 End: 12-30-2024 Tobacco smoking status NHIS Never smoked tobacco [facility] Work Phone: Start: 08-15-2015 End: 02-27-2024 Tobacco use and exposure Smokeless tobacco non-user [facility] Work Phone: Start: 02-28-2024 End: 03-17-2024 Alcoholic beverage intake Ex-drinker (finding) [facility] Work Phone: Start: 02-27-2024 End: 03-17-2024 History of Social function [facility] Work Phone: Start: 02-27-2024 End: 03-17-2024 Tobacco use panel [facility] Work Phone: Start: 1945 Sex assigned at Not on file [facility] Work Phone: Start: 02-17-2024 End: 03-17-2024 Exposure to SARS-CoV-2 (event) Not sure [facility] Start: 02-28-2024 Gender identity Identifies as female gender (finding) [facility] Work Phone: Start: 02-20-2017 Alcohol intake Current non-dr knotter hand of alcohol (finding) [facility] Start: 12-07-2024 End: 12-30-2024 Sex Female (finding) [facility] Medical Equipment Procedure Code Equipment Code Equipment Origin al Text Equipment Identifier Dates Insertion, vascular access port ([id number]) Vascular port/catheter [id number] FDA Start: 04-24-2024 Start: 05-29-2023 Goals Date Patient Goal Desired Activity /State Functional Status Date Assessment Result Facility 01-05-2025 Functional status Chair [facility] Work Phone: Mental Status Date Assessment Result Facility 01-05-2025 Cognitive function Voice/Name [facility] Work Phone: 05-19-2024 Cognitive function Voice/Name [facility] Work Phone: 11-21-2023 Cognitive function Level Of Cons ciousness Awake;Alert;Appropriate;Follo ws Commands [facility] Work Phone: Clinical Notes 05-26-2019 to 06-07-2025 Note Date & Type Note Facility 06-07-2025 Evaluation note Diagnosis Onset Date Resolution Follicular lymphoma grade 3a chronic February 24, 2025 1 :48pm Follicular lymphoma grade 3a chronic February 25, 2025 3 :43pm [facility] Work Phone: 1(410) 544-798005-29-2025 Progress [facility] [address] [place] [address] OFFICE VISIT Date of Service: 02/25/25 1553 MR#: [id number] Acct: [id number] Name: LETICIA HERRERA Rep #: [id number] : 1945 From: Edenilson Campoverde MD Age/Sex: 79/F [place] [facility] [place]: Signed HPI Subjective Date of Service 02/25/25 Chief Complaint F/u for CT results. History of Present Illness 79-year-old woman was found to have a nasopharyngeal mass. He was referred to CT of the neck on 03/05/2024 showed large soft tissue mass centered in the leftnasopharynx extending into the right nasopharynx extending inferiorly to the left oropharynx with lymphadenopathy throughout the left side ofthe neck. She had biopsy of the nasopharyngeal mass on 03/17/2024. 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 PET/CT obtained April 07, 2024 showed hypermetabolic activity bilateral lateral and anterior neck, left axillary region, left inguinal lymph node basins. Screening for hepatitis B and C negative. Got Bendamustine and Rituxan from 04/15/2024 to 05/26/2024 x 3cycles.. PET/CT performed 05/19/2024 demonstrated complete metabolic response. She is on observation. Had CT done because of ribs abnormality. Comes for follow up. No weight loss, fever or night sweats [facility] Medical History Foot drop Loss of hearing Wears hearing aid Wears glasses Wears contact lenses Wears dentures Cancer History of steroid therapy Arthritis High cholesterol Non-smoker History of stress test History of echocardiogram Cardiology follow-up encounter PONV (postoperative nausea and vomiting) Encounter for education Depression Upper GI bleed Atherosclerosis of coronary artery of atka heart without angina pectoris Obesity Essential (primary) hypertension GERD (gastroesophageal reflux disease) Type 2 diabetes mellitus Hyperlipidemia Surgical History History of cardiac catheterization History of coronary artery stent placement (05/26/19) History of left heart catheterization (12/07/11) Hx of appendectomy History of laminectomy History of bilateral hip replacements History of total bilateral knee replacement History of hysterectomy H/O total hip arthroplasty Family History Father COPD (chronic obstructive pulmonary disease) Myocardial infarction Mother Diabetes CAD (coronary artery disease) Hx CABG Alzheimers disease CVA (cerebral vascular accident) Brother H/O angioplasty Diabetes Brother CVA (cerebral vascular accident) Son Diabetes Social History household members: none Smoking Status: Never smoker alcohol intake: never substance use type: does not use diet: diabetic caffeine: Yes Type: coffee Number of servings: 3 what type of physical activity do you participate in: other details: PT frequency: 3-4 times per week duration: 30-45 minutes/day seatbelt use: always do you feel safe at home: Yes Intake Vital Signs 02/24/25 14:08 02/25/25 15:55 Height 5 ft 3 in 5 ft 3 in Weight: 96.814 kg BMI 37.8 BP 134/68 H Blood Pressure Location Lt brachial Position Sitting Respiration 18 Pulse 77 Pulse Source Monitor Temp 97.7 F L Temperature Source Temporal Artery Pulse Oximetry (%) 94 Oxygen Delivery Method room air Intake Is patient in pain?: No Allergies adhesive tape Allergy (Verified 02/25/25 15:56) red, itchy atorvastatin (From Lipitor) Allergy (Verified 02/25/25 15:56) myalgias Iodinated Contrast Media (CT) Allergy (Verified 02/25/25 15:56) Shortness of breath Penicillins Allergy (Verified 02/25/25 15:56) Rash pravastatin Allergy (Verified 02/25/25 15:56) myalgias Medications ?Medication ?Instructions ?Recorded ?Confirmed ?Type rosuvastatin 5 mg tablet 5 mg PO QHS cholesterol 11/2802/25/25 History acetaminophen 500 mg tablet 1,000 mg PO Q8 PRN pain 02/25/25 History paroxetine HCl 30 mg tablet 30 mg PO DAILY 01/26/20 History clopidogrel 75 mg tablet (Plavix) 75 mg PO QDAY #90 ta bs 01/02/22 02/25/25 Rx dicyclomine 10 mg capsule 10 mg PO BID 05/15/22 History ascorbate calcium (vitamin C) 500 500 mg PO DAILY 05/3102/25/25 History mg tablet mecobalamin (vitamin B12) 1,000 1,000 mcg PO DAILY 02/25/25 History mcg chewable tablet metformin 500 mg tablet,extended 500 mg PO BID diabete s 06/18/23 02/25/25 History release 24 hr zinc acetate 50 mg (zinc) capsule 50 mg PO DAILY 06/1802/25/25 History famotidine 40 mg tablet (Pepcid) 40 mg PO DAILY 02/25/25 History insulin glargine 100 unit/mL (3 10 unit subcut QPM 07/2302/25/25 History mL) subcutaneous pen (Lantus Solostar U-100 Insulin) isosorbide dinitrate 10 mg tablet See Rx Instructions .Route 05/14/24 02/25/25 Rx .COMPLEX #270 tabs metoprolol tartrate 25 mg tablet See Rx Instructions . Route 05/18/24 02/25/25 Rx .COMPLEX #180 TABLETS aspirin 81 mg chewable tablet 81 mg PO BID [facility] 01/05/25 02/25/25 Rx #60 tabs gabapentin 100 mg capsule 100 mg PO TIDCM 14 days #42 caps 01/05/25 02/25/25 Rx Have you fallen in the past year?: No Central Venous Access Central Venous Access: Yes Port/PICC: Port 02/24/[address]/CT Chest, Abd, Pelvis WO Cont IMPRESSION: 1. Cortical irregularity of the left 4th and 5th ribs could be nondisplaced fracture. 2. Small esophageal hiatal hernia. 3. Cholelithiasis. 4. Fecal retention in the colon consistent with constipation. CT/Soft Tissue Neck without Contr IMPRESSION: No acute abnormalities. Exam Physical Exam Const alert, oriented x3 and no apparent distress Chest Chest Narrative: + slight protrusion of L subcostal margin. 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 Started treatment with Bendamustine and Rituxan on 04/15/2024 and 05/26/2024. Has had resolution of throat mass and neck nodes. PET/CT on 05/19/2024 reviewed, no hypermetabolic activities-complete response. She is on observation. Comes for follow up. CT 02/24/2025 reviewed, no evidence of adenopathy, abnormal lower part of sternum. No evidence of Progressive disease. Plan: To continue observation. RTO 6 months. Plan Details Follow Up: 6 Months Clinical Quality Measures Falls Risk Screening/Assistive Devices Have you fallen in the past year?: No 02/25/25 1631 D> Date _ Edenilson Campoverde MD Cosigner Signature: Date (if applicable) CC: ~ [facility]05-29-2025 Progress note Author Edenilson Campoverde [place] [facility] Note Date/Time February 25, 2025 4:31p m [facility] [address] [place] [address] OFFICE VISIT Date of Service: 02/25/25 1553 MR#: [id number] Acct: [id number] Name: LETICIA HERRERA Rep #: [id number] : 1945 From: Edenilson Campoverde MD Age/Sex: 79/F [place] [facility] [place] [place] Status: Signed HPI Subjective Date of Service 02/25/25 Chief Complaint F/u for CT results. History of Present Illness 79-year-old woman was found to have a nasopharyngeal mass. He was referred to CT of the neck on 03/05/2024 showed large soft tissue mass centered in the leftnasopharynx extending into the right nasopharynx extending inferiorly to the left oropharynx with lymphadenopathy throughout the left side of the neck. She had biopsy of the nasopharyngeal mass on 03/17/2024. 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 PET/CT obtained April 07, 2024 showed hypermetabolic activity bilateral lateral and anterior neck, left axillary region, left inguinal lymph node basins. Screening for hepatitis B and C negative. Got Bendamustine and Rituxan from 04/15/2024 to 05/26/2024 x 3cycles.. PET/CT performed 05/19/2024 demonstrated complete metabolic response. She is on observation. Had CT done because of ribs abnormality. Comes for follow up. No weight loss, fever or night sweats [facility] History Foot drop Loss of hearing Wears hearing aid Wears glasses Wears contact lenses Wears dentures Cancer History of steroid therapy Arthritis High cholesterol Non-smoker History of stress test History of echocardiogram Cardiology follow-up encounter PONV (postoperative nausea and vomiting) Encounter for education Depression Upper GI bleed Atherosclerosis of coronary artery of [place]ka heart without angina pectoris Obesity Essential (primary) hypertension GERD (gastroesophageal reflux disease) Type 2 diabetes mellitus Hyperlipidemia Surgical History History of cardiac catheterization History of coronary artery stent placement (05/26/19) History of left heart catheterization (12/07/11) Hx of appendectomy History of laminectomy History of bilateral hip replacements History of total bilateral knee replacement History of hysterectomy H/O total hip arthroplasty Family History Father COPD (chronic obstructive pulmonary disease) Myocardial infarction Mother Diabetes CAD (coronary artery disease) Hx CABG Alzheimers disease CVA (cerebral vascular accident) Brother H/O angioplasty Diabetes Brother CVA (cerebral vascular accident) Son Diabetes Social History household members: none Smoking Status: Never smoker alcohol intake: never substance use type: does not use diet: diabetic caffeine: Yes Type: coffee Number of servings: 3 what type of physical activity do you participate in: other details: PT frequency: 3-4 times per week duration: 30-45 minutes/day seatbelt use: always do you feel safe at home: Yes Intake Vital Signs 02/24/25 14:08 02/25/25 15:55 Height 5 ft 3 in 5 ft 3 in Weight: 96.814 kg BMI 37.8 BP 134/68 H Blood Pressure Location Lt brachial Position Sitting Respiration 18 Pulse 77 Pulse Source Monitor Temp 97.7 F L Temperature Source Temporal Artery Pulse Oximetry (%) 94 Oxygen Delivery Method room air Intake Is patient in pain?: No Allergies adhesive tape Allergy (Verified 02/25/25 15:56) red, itchy atorvastatin (From Lipitor) Allergy (Verified 02/25/25 15:56) myalgias Iodinated Contrast Media (CT) Allergy (Verified 02/25/25 15:56) Shortness of breath Penicillins Allergy (Verified 02/25/25 15:56) Rash pravastatin Allergy (Verified 02/25/25 15:56) myalgias Medications ?Medication ?Instructions ?Recorded ?Confirmed ?Type rosuvastatin 5 mg tablet 5 mg PO QHS cholesterol 11/2802/25/25 History acetaminophen 500 mg tablet 1,000 mg PO Q8 PRN pain 02/25/25 History paroxetine HCl 30 mg tablet 30 mg PO DAILY 01/26/20 History clopidogrel 75 mg tablet (Plavix) 75 mg PO QDAY #90 ta bs 01/02/22 02/25/25 Rx dicyclomine 10 mg capsule 10 mg PO BID 05/15/22 History ascorbate calcium (vitamin C) 500 500 mg PO DAILY 05/3102/25/25 History mg tablet mecobalamin (vitamin B12) 1,000 1,000 mcg PO DAILY 02/25/25 History mcg chewable tablet metformin 500 mg tablet,extended 500 mg PO BID diabete s 06/18/23 02/25/25 History release 24 hr zinc acetate 50 mg (zinc) capsule 50 mg PO DAILY 06/1802/25/25 History famotidine 40 mg tablet (Pepcid) 40 mg PO DAILY 02/25/25 History insulin glargine 100 unit/mL (3 10 unit subcut QPM 07/2302/25/25 History mL) subcutaneous pen (Lantus Solostar U-100 Insulin) isosorbide dinitrate 10 mg tablet See Rx Instructions .Route 05/14/24 02/25/25 Rx .COMPLEX #270 tabs metoprolol tartrate 25 mg tablet See Rx Instructions . Route 05/18/24 02/25/25 Rx .COMPLEX #180 TABLETS aspirin 81 mg chewable tablet 81 mg PO BID [facility] 01/05/25 02/25/25 Rx #60 tabs gabapentin 100 mg capsule 100 mg PO TIDCM 14 days #42 caps 01/05/25 02/25/25 Rx Have you fallen in the past year?: No Central Venous Access Central Venous Access: Yes Port/PICC: Port 02/24/[address]/CT Chest, Abd, Pelvis WO Cont IMPRESSION: 1. Cortical irregularity of the left 4th and 5th ribs could be nondisplaced fracture. 2. Small esophageal hiatal hernia. 3. Cholelithiasis. 4. Fecal retention in the colon consistent with constipation. CT/Soft Tissue Neck without Contr IMPRESSION: No acute abnormalities. Exam Physical Exam Const alert, oriented x3 and no apparent distress Chest Chest Narrative: + slight protrusion of L subcostal margin. 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 Started treatment with Bendamustine and Rituxan on 04/15/2024 and 05/26/2024. Has had resolution of throat mass and neck nodes. PET/CT on 05/19/2024 reviewed, no hypermetabolic activities-complete response. She is on observation. Comes for follow up. CT 02/24/2025 reviewed, no evidence of adenopathy, abnormal lower part of sternum. No evidence of Progressive disease. Plan: To continue observation. RTO 6 months. Plan Details Follow Up: 6 Months Clinical Quality Measures Falls Risk Screening/Assistive Devices Have you fallen in the past year?: No 02/25/25 7802 <Electronically signed by Edenilson Martin> Date _ Edenilson Campoverde MD Cosigner Signature: Date (if applicable) CC: ~ [place] [employer] [facility] Work Phone: 1(530) 255-242605-28-2025 Radiology Diagnostic study note [facility] Imaging Services [address] [place] [address] Soft Tissue Neck without Contr MR#: [id number] Acct: [id number] Name: LETICIA HERRERA Rep #: [id number] : 1945 F 79 From: Juan Francisco Fisher MD PCP: Dr. Lisa Gamble, DO Status: REG CLI Study:Soft Tissue Neck without Contr Date of Exam: 02/24/25 Exam# [id number] Ordering Dr: Gladys Park NP METEOROLOGICAL AIDE-C PROCEDURE: SOFT TISSUE NECK WITHOUT CONTR 02/24/2025 REASON FOR EXAM: FOLLICULAR LYMPHOMA TECHNIQUE: CT of the soft tissues of the neck from the orbits to the upper mediastinum without intravenous contrast One or more dose reduction techniques were used (e.g., Automated exposure control, adjustment of the mA and/or kV according to patient size, use of iterative reconstruction technique). RADIATION DOSE SUMMARY: CTDlvol: 20.32+ 20.24+ 20.39 mGy DLP: 2314.92 mGycm COMPARISON: None. FINDINGS: Airway: Midline and patent. Salivary glands: Unremarkable. Lymph nodes: No cervical lymphadenopathy. Thyroid: Unremarkable. Vasculature: Moderate calcified plaque of the carotid arteries. Orbits: Unremarkable at visualized levels. Paranasal sinuses and mastoids: Grossly clear at visualized levels. Lung apices: Clear. Upper mediastinum: Visualized mediastinum is unremarkable. Bones: Multilevel degenerative changes of the spine. Other: Right chest infusion port. CT/Soft Tissue Neck without Contr IMPRESSION: No acute abnormalities. Reading Location: [id number] CC: METEOROLOGICAL AIDE-C Gladys English; Dr. Lisa Gamble DO ~ Lofter: Signed [facility]05-28-2025 Radiology Diagnostic study note [facility] Imaging Services [address] [place] [id number] Chest, Abd, Pelvis WO Cont MR#: [id number] Acct: [id number] Name: LETICIA HERRERA Rep #: [id number] : 1945 F 79 From: Jessie Hollins MD PCP: Dr. Lisa Gamble DO Status: REG CLI Study:CT Chest, Abd, Pelvis WO Cont Date of E xam: 02/24/25 Exam# [id number] Ordering Dr: Gladys Park NP METEOROLOGICAL AIDE-C EXAM: CT Chest, Abdomen and Pelvis Without Intravenous Contrast CLINICAL INDICATION: NEW SPLENOMEGALY; H/O FOLLICULAR LYMPHOMA TECHNIQUE: Axial computed tomography images of the chest, abdomen and pelvis without intravenous contrast. This CT exam was performed using one or more of the following dose reduction techniques: automated exposure control,adjustment of the mA and/or kV according to patient size, and/or use of iterative reconstruction technique. COMPARISON: No relevant prior studies available. FINDINGS: CHEST: LUNGS AND PLEURAL SPACES: Unremarkable. No mass. No consolidation. No significant effusion. No pneumothorax. HEART: Unremarkable. No cardiomegaly. No significant pericardial effusion. No significant coronary artery calcifications. MEDIASTINUM: A few prominent mediastinal lymph nodes measuring up to 6 mm. Small esophageal hiatal hernia. ABDOMEN: LIVER: Hepatic cysts. GALLBLADDER AND BILE DUCTS: Cholelithiasis. No ductal dilation. PANCREAS: Unremarkable. No ductal dilation. SPLEEN: Unremarkable. No splenomegaly. ADRENALS: Unremarkable. No mass. KIDNEYS AND URETERS: Unremarkable. No obstructing stones. No hydronephrosis. STOMACH AND BOWEL: Fecal retention in the colon consistent with constipation. No obstruction. No mucosal thickening. PELVIS: APPENDIX: No findings to suggest acute appendicitis. BLADDER: Unremarkable. No stones. REPRODUCTIVE: Unremarkable as visualized. CHEST, ABDOMEN and PELVIS: INTRAPERITONEAL SPACE: Unremarkable. No significant fluid collection. No freeair. BONES/JOINTS: Cortical irregularity of the left 4th and 5th ribs could be nondisplaced fracture. Bilateral hip replacement resulting in beam hardening artifacts. These limit evaluation of the pelvis. Multilevel endplate degenerative changes and disc disease of the visualized spine, most prominent from L2-L5. SOFT TISSUES: Unremarkable. VASCULATURE: Scattered calcified atherosclerotic disease of aorta. No aortic aneurysm. LYMPH NODES: See above. CT/CT Chest, Abd, Pelvis WO [facility] IMPRESSION: 1. Cortical irregularity of the left 4th and 5th ribs could be nondisplaced fracture. 2. Small esophageal hiatal hernia. 3. Cholelithiasis. 4. Fecal retention in the colon consistent with constipation. Reading Location[facility] CC: MAGALY English; Dr. Lisa Gamble, DO ~ Lofter: Signed [facility]04-08-2025 [facility] Medical Records Department [address] [place] [address] Discharge Summary 01/05/25 1258 MR#: [id number] Acct: [id number] Name: LETICIA HERRERA Rep #: [id number] : 1945 79 From: Rosy Nguyen MD PCP: Dr. Lisa Gamble DO Status:DIS IN Location: MS3 [id number] Providers Date of Admission: 12/31/24 Date of Discharge: 01/05/25 Primary Care Physician: Dr. Lisa Gamble DO Consultations 12/30/24 11:05 Consult: Orthopedics Routine Consulting Provider: Solis Meek Reason for Consult: loose screws in hip- pt sees Dr. Roque EMERGENT Consult: No MD Notified: Yes Date Notified: 12/30/24 Time Notified: 11:06 Method of Notification: Answering Service 01/03/25 09:29 Consult: Infectious Disease Routine Consulting Provider: Henrique Holloway Reason for Consult: left hip prosthesis loosening/infection? EMERGENT Consult: No MD Notified: Yes Date Notified: 01/03/25 Time Notified: 09:29 Method of Notification: Text Reason For Visit: INTRACTABLE L HIP PAIN, ADULT FTT Diagnosis Discharge Diagnosis (1) 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: Status: Acute Code(s): T84.84XA - Pain due to internal orthopedic prosthetic devices, implants and grafts, initial encounter; Z96.642 - Presence of left artificial hip joint Plan # Left hip pain most likely due to the screws/prosthesis # History of coronary artery disease history of diabetes # Hypertension # GERD # Grade 3A follicular lymphoma # Depression and anxiety Medications at Discharge Home Medications rosuvastatin 5 mg tablet 5 mg PO QHS cholesterol 12/13/17 acetaminophen 500 mg tablet 1,000 mg PO Q8 PRN pain 12/18/17 paroxetine HCl 30 mg tablet 30 mg PO DAILY 01/26/20 clopidogrel 75 mg tablet (Plavix) 75 mg PO QDAY #90 tabs 01/02/22 dicyclomine 10 mg capsule 10 mg PO BID 05/15/22 ascorbate calcium (vitamin C) 500 mg tablet 500 mg PO DAILY 06/18/23 mecobalamin (vitamin B12) 1,000 mcg chewable tablet 1,000 mcg PO DAILY 06/18/23 metformin 500 mg tablet,extended release 24 hr 500 mg PO BID diabetes 06/18/23 zinc acetate 50 mg (zinc) capsule 50 mg PO DAILY 06/18/23 famotidine 40 mg tablet (Pepcid) 40 mg PO DAILY 04/08/24 insulin glargine 100 unit/mL (3 mL) subcutaneous pen (Lantus Solostar U-100 Insulin) 10 unit subcut QPM 04/08/24 isosorbide dinitrate 10 mg tablet See Rx Instructions .Route .COMPLEX #270 tabs 05/14/24 metoprolol tartrate 25 mg tablet See Rx Instructions .Route .COMPLEX #180 TABLETS 05/18/24 aspirin 81 mg chewable tablet 81 mg PO BID health maintenance #60 tabs 01/05/25 gabapentin 100 mg capsule 100 mg PO TIDCM 14 days #42 caps 01/05/25 Hospital Course Summary of Care Provided Minutes Spent on Discharge: 31 Hospital Course: # Left hip pain most likely due to the screws/prosthesis # History of coronary artery disease history of diabetes # Hypertension # GERD # Grade 3A follicular lymphoma # Depression and anxiety 79-year-old female with history as above presented to [facility] ED 2024 due to left hip pain that worsened on day of presentation and was sharp and stabbing in nature and worse with weightbearing. She was known to have a prior open reduction internal fixation of the femur after a fracture. X-ray negative for acute process. Due to patient's functional decline however hospitalist contacted for admission. Ortho consulted and patient had MRI on 12/31 which showed T2 abnormal hyperintensity signal in soft tissue surrounding hip implant and distal femur possibly due to loosening of prosthesis versus infectious process. There is ultrasound-guided drainage 01/22 which was sent for culture. Cultures been negative thus far with no growth to date, seen by infectious disease and is recommended to continue to monitor off of antibiotics given thus far no organism has grown. Patient evaluated by Ortho multiple times and given her improvement in symptoms/mobility was recommended that patient be discharged home with mobility as tolerated and follow-up outpatient for further workup and management. Ortho recommended baby aspirin twice daily in addition to Plavix given her decreased mobility to prevent VTE. On day of discharge patient reports she is still feeling better than she was with progressively improving symptoms/mobility, she is comfortable with discharge home and plans for outpatient follow-up. No other new or acute complaints. Discharge instructions as followed: -Please follow-up with orthopedic surgery upon discharge. Please call their office to schedule hospital follow-up appointment upon discharge. - You will need to take a baby aspirin twice daily in addition your Plavix to help prevent blood clots -Your lisinopril has been stopped at this time due to a very well-controlled blood pressure, this may need to be restarted in the future but would follow-up cl (more content not included)...[facility]04-03-2025 Evaluation note* Diagnosis Onset Date Resolution Status Admit Date Hip pain, left acute December 31, 2024 3:43pm 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 acute December 31, 2024 3:43pm [facility] Work Phone: 1(404) 649-269104-03-2025 Evaluation note* Diagnosis Onset Date Resolution Status Admit Date Hip pain, left acute December 31, 2024 3:43pm 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 acute December 31, 2024 3:43pm Follicular lymphoma grade 3a chronic February 24, 2025 1:48pm Follicular lymphoma grade 3a chronic February 25, 2025 3:43pm [place] [employer] Work Phone: 1(516) 180-917904-02-2025 History and physical note [facility] Medical Records Department [address] [place] [address] H&P Exam - Hospitalist 12/30/24 0007 MR#: [id number] Acct: [id number] Name: LETICIA HERRERA Rep #:[id number] : 1945 79 From: Chey Clark MD PCP: Dr. Lisa Gamble, DO Status:ADM MARTIN Location: [facility] – [place] [id number] HPI - General General Date of Admission: 12/30/24 Date of Service: 12/30/24 Chief Complaint: Intractable L hip pain, debility. HPI Narrative The patient is a 79 y/o F w/ PMHx: CKD stage II per GFR trending, Anxiety and Depression, Morbid obesity, HTN, HLD, GERD w/ Hx prior GI bleed, Diabetes mellitus type II, Chronic anemia/Fe deficiency anemia, CAD s/p PCI 2018, ChronicL foot drop and BL LE neuropathy following with Neurology w/ recent 11/24/24 nerve conduction studies noted to be abnormal with evidence of predominantly axonal, sensorimotor, length dependent, peripheral polyneuropathy with active denervation with recommended follow-up neuromuscular ultrasound to confirm localization of left peroneal nerve entrapment, Osteoarthritis status post bilateral total hip replacement previously, Follicular lympoma grade 3A following withDr. Prah with involvement of both sides of the diaphragm, additionally a large nasopharyngeal mass treated with Bendamustine and Rituxan 04/15/2024 and 05/26/2024 with resolution of throat mass and neck nodes, follow- upPET/CT 05/19/2024 with no hypermetabolic activity with continued close observation with last evaluation 10/13/2024 who presents to the [facility] ED on 12/30/2024 with history of pain to the left hip and thigh worsening today which has been ongoing reporting that she has been more active and walking more over the last 48 hours with pain more sharp and stabbing worse with weightbearing andimproved with rest with chronic persistent paresthesias especially the left lower extremity with recent diagnosis of neuropathy but given ongoing persistentpain prompted ED evaluation. Currently in the ED she initially rates her pain at 8 of 10 in severity. In the ED they attempted to ambulate the vera ent with awalker and she was unable to do so. In the ED upon evaluation at rest post medication shedenies pain but notes onset severe pain with movement attempts and any weight bearing attempts. Shedenies having had pain like this but less severe ongoing. She notes she has not had hip pain for nearly 5 years. Workup inthe ED included T98.2, heart 71, BP 152/66, respiratory rate 16, 95% on room air, plain film of the pelvis with status post bilateral hip arthroplasty with no acute fracture, plain film of the left femur with status post left hip arthroplasty with possible loosening with no acute fracture. In the ED patient ministered morphine 4 mg IM x 1. PFSH Medical History Foot drop Loss of hearing Wears hearing aid Wears glasses Wears contact lenses Wears dentures Cancer History of steroid therapy Arthritis High cholesterol Non-smoker History of stress test History of echocardiogram Cardiology follow-up encounter PONV (postoperative nausea and vomiting) Encounter for education Depression Upper GI bleed Atherosclerosis of coronary artery of [place] heart without angina pectoris Obesity Essential (primary) hypertension GERD (gastroesophageal reflux disease) Type 2 diabetes mellitus Hyperlipidemia Home Medications ?Medication ?Instructions ?Recorded ?Last Taken ?Type aspirin 81 mg chewable tablet 81 mg PO DAILY health ma intenance 12/13/17 04/18/24 History benazepril 20 mg tablet 20 mg PO DAILY blood pressur e 12/13/17 09/06/19 21:00 History rosuvastatin 5 mg tablet 5 mg PO QHS cholesterol 11/2809/06/19 21:00 History acetaminophen 500 mg tablet 1,000 mg PO Q8 PRN pain 09/06/19 15:00 History paroxetine HCl 30 mg tablet 30 mg PO DAILY 01/26/20 History clopidogrel 75 mg tablet (Plavix) 75 mg PO QDAY #90 ta bs 01/02/22 04/18/24 Rx Held on 04/24/24. Instructions: Resume on 04/25/24. dicyclomine 10 mg capsule 10 mg PO BID 05/15/22 Unknow n History ascorbate calcium (vitamin C) 500 500 mg PO DAILY 05/31 06/22 Unknown History mg tablet mecobalamin (vitamin B12) 1,000 1,000 mcg PO DAILY Unknown History mcg chewable tablet metformin 500 mg tablet,extended 500 mg PO BID diabete s 06/18/23 Unknown History release 24 hr zinc acetate 50 mg (zinc) capsule 50 mg PO DAILY 06/18 Unknown History famotidine 40 mg tablet (Pepcid) 80 mg PO DAILY 04/24/24 History insulin glargine 100 unit/mL (3 10 unit subcut QPM 07/23 Unknown History mL) subcutaneous pen (Lantus Solostar U-100 Insulin) tramadol 50 mg tablet 50 mg PO Q6H PRN pain 3 days #5 04/24/24 Unknown Rx tabs isosorbide dinitrate 10 mg tablet See Rx Instructions .Route 05/14/24 Unknown Rx .COMPLEX #270 tabs metoprolol tartrate 25 mg tablet See Rx Instructions . Route 05/18/24 Unknown Rx .COMPLEX #180 TABLETS Allergy/AdvReac Type Severity Reaction Status Date / Time adhesive tape Allergy red, itchy Verified 12/29/24 20:13 atorvastatin (From Lipitor) Allergy myalgias Verified 12/29/24 20:13 Iodinated Contrast Media (CT) Allergy Shortness Verified 12/29/24 20:13 of breath Penicillins Allergy Rash Verified 12/29/24 20:13 pravastatin Allergy myalgias Verified 12/29/24 20:13 Family History Father COPD (chronic obstructive pulmonary disease) Myocardial infarction Mother Diabetes CAD (coronary artery disease) Hx CABG Alzheimers disease CVA (cerebral vascular accident) Brother H/O angioplasty Diabetes Brother CVA (cerebral vascular accident) Son Diabetes Surgical History History of cardiac catheterization History of coronary artery stent placement (05/26/19) History of left heart catheterization (12/07/11) Hx of appendectomy History of laminectomy History of bilateral hip replacements History of total bilateral knee replacement History of hysterectomy H/O total hip arthroplasty Social History household members: none Smoking Status: Never smoker alcohol intake: never substance use type: does not use diet: diabetic caffeine: Yes Type: coffee Number of servings: 3 what type of physical activity do you participate in: other details: PT frequency: 3-4 times per week duration: 30-45 minutes/day seatbelt use: always do you feel safe at home: Yes ROS ROS Narrative Admission Review of Systems: CONSTITUTIONAL: No weight loss, fever, chills, + weakness or fatigue. HEENT: Eyes: No visual loss, blurred vision, double vision or yellow sclerae. Ears, Nose, Throat: No hearing loss, sneezing, congestion, runny nose or sore throat. SKIN: No rash or itching, lesions, wounds. CARDIOVASCULAR: No chest pain, chest pressure or chest discomfort, edema, palpitations, orthopnea, syncopal events. RESPIRATORY: No shortness of breath, cough or sputum, wheezing, hemoptysis. GASTROINTESTINAL: No anorexia, nausea, vomiting or diarrhea, abdominal pain, melena, BRBPR. GENITOURINARY: No dysuria, frequency, urgency or retention. NEUROLOGICAL: No headache, dizziness, syncope, paralysis, ataxia, numbness or tingling in the extremities, focal weakness, change in bowel or bladder control,seizure. MUSCULOSKELETAL: + muscle, back pain, joint pain or stiffness. HEMATOLOGIC: + Chronic anemia, easy bleding/bruising. LYMPHATICS: No enlarged nodes. No history of splenectomy. PSYCHIATRIC: + history of anxiety and depression. ENDOCRINOLOGIC: No reports of sweating, cold or heat intolerance. No polyuria orpolydipsia. ALLERGIES: No history of asthma, hives, eczema or rhinitis. Vital Signs Vital Signs Vital Signs: 12/29/24 20:09 12/29/24 22:06 Temperature 98.2 F Temperature Source Oral Pulse Rate 71 70 Respiratory Rate 16 17 Blood Pressure 152/66 H 186/75 H Blood Pressure Mean 94 112 Pulse Ox 95 99 Oxygen Delivery Method Room Air Room Air Weight Weight: 218 lb 7.649 oz Body Mass Index (BMI) 39.9 Physical Exam Narrative Physical Examination: General: Awake, alert, oriented x 3 and cooperative, laying in the bed, fatigued, notes pain controlled currently without movement. Skin: Normal color, normal turgor, no icterus, no cyanosis. HEENT: AT/NC, EOMI, PERRLA, mildly dry MM, no carotid bruits or JVD noted. Lungs: Mildly diminished, greater bases, appropriate effort, no rales, ronchi orwheezing. Heart: Regular rate and rhythm; no gallop, rub audible. Abdomen: Soft, morbidly obese, NTTP, ND, on the hyperactive BS, no appreciated HSM. Extremities: No cyanosis, clubbing, or edema, mild discomfort over the anterior and lateral aspect of the left hip, able to rotate, no obvious sensation deficits. Neurological: Patient awake, alert, oriented as noted, cognitive function intact; pupils equally reactive to light and accommodation, cranial nerves grossly normal, moving all 4 extremities, no focaldeficits, strength moderatelyto severely globally decreased given acute presentation, primarily pain onset tothe left hip with weightbearing attempts and some with palpation of the anteriorand lateral region. Psychiatric: Affect appears fatigued, no acute evidence of depressive or anxietyfeelings but does have underlying history. Results Imaging Radiology Impression Femur X-Ray 12/29/24 20:53 IMPRESSION: Status post left hip arthroplasty with suspected loosening. No acute fracture. Reading Location: [facility] Pelvis X-Ray 12/29/24 20:53 IMPRESSION: Status post bilateral hip arthroplasty. No acute fracture. Reading Location: [facility] Assessment & Plan Assessment/Plan (1) Hip pain, left: PLAN: Plan The patient is a 79 y/o F w/ PMHx: CKD stage II per GFR trending, Anxiety and Depression, Morbid obesity, HTN, HLD, GERD w/ Hx prior GI bleed, Diabetes mellitus type II, Chronic anemia/Fe deficiency anemia, CAD s/p PCI 2019, ChronicL foot drop and BL LE neuropathy following with Neurology w/ recent 11/24/24 abnormal LLE nerve conduction studies, Osteoarthritis status post bilateral total hip replacement previously, Hx Follicular lympoma grade 3A following with Dr. Campoverde who presents to the [facility]Don 12/30/2024 with history of pain to the lefthip and thigh worsening today which has been ongoing reporting that she has beenmore active and walking more over the last 48 hours with pain more sharp and stabbing worse with weightbearing and improved with rest with chronic persistentparesthesias especially the left lower extremity with recent diagnosis of neuropathy. #1. Intractable left hip pain complicated by chronic neuropathy, debility, adult failure to thrive:Will admit to medical surgical floor, maintain on fall precautions, initiate low-dose gabapentin regimen, initiate oral/IV pain regimen, PT/OT/case management consulted for discharge planning, pending response may need to consider orthopedic surgery involvement given possible loosening device and certainly may require further CT imaging to further assess. #2. Chronic anemia/iron deficiency anemia: Admission CBC requested, baseline hemoglobin noted to beprimarily 10-12, MCV normally normocytic, clarifying but on current list does not appear to be on iron supplementation any longer, will continue to trend. #3. Chronic Kidney Disease Stage II per GFR trending but is certainly vacillated: Admission BUN/Cr pending upon requested evaluation of patient but GFR has primarily been consistent with stage II, baseline renal function 0.6-0.8. #4. CAD: Status post PCI 2019, continue aspirin, Plavix, statin, benazepril, metoprolol home regimen. #5. Diabetes mellitus type II: Hold oral home regimen, continue home insulin regimen, ADA diet, accu checks w/ ISS. #6. Hypertension: Continue home regimen including metoprolol, isosorbide, benazepril, PRN hydralazine. #7. Hyperlipidemia: Continue patient home statin therapy. #8. Morbid Obesity: Weight loss and lifestyle changes encouraged. #9. Anxiety and depression: We will continue patient on paroxetine regimen. #10. GERD, history of previous GI bleed: Currently per list on famotidine only,will continue. Clarifying to be certain as dose is significantly elevated. 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 DVT prophylaxis: Lovenox. #13. CODE status: Patient HCPOA is her children present and living will is currently in place. Discussed CODE status at length including difference betweenFULL code, DNR-CCA and DNR-CC status. Following discussions about the differences in these status, requested DNR-CCA, no intubation which was cla rified with examples. Advanced Care Planning Face to Face Time: 16 minutes. Charges/Coding Visit Charges Inpatient E&M: 17292 Init Hosp L2 Procedures Hospitalists Procedures: 61272 Advncd Care Plan 30 Min 12/30/24 0042 Cosigner Signature (if applicable): CC: Dr. Chey Clark MD; Dr. Lisa Gamble DO~ Signed [facility]04-02-2025 Discharge summary [facility] Medical Records Department [address] [place] [address] Emergency Department Summary 12/29/24 MR#: [id number] Acct: [id number] Name: LETICIA HERRERA Rep #:[id number] : 1945 79 From: Enrique Blanco PCP: Dr. Lisa Gamble DO Status:REG ER Location: ED HPI History of Present Illness HPI Narrative: Patient presents with pain to her left hip and thigh that became worse today. Patient states she was doing more walking than she normally does yesterday. Patient states her pain is sharp and stabbing. Patient states it is worse with weightbearing. Patient states it is better with rest. Patient mitts to some paresthesias in her left lower extremity. Patient states she was recently diagnosed with neuropathy. The patient has had prior open reduction internal fixation of the femur and hip fracture.Patient denies any fevers or chills. Patient denies any recent trauma or injury. Chief Complaint: Lower Extremity Injury Informant: patient Onset/Context/Timing Onset: Today Context: Gradual Onset Timing: Continuous Quality of Pain: Stabbing Location: Left hip and thigh Worsened by: Weightbearing Relieved by: Rest Associated Symptoms Associated Symptoms: Positive for Parasthesia; Negative for Weakness or Loss of Funtion PFSH [facility] Medical History Foot drop Loss of hearing Wears hearing aid Wears glasses Wears contact lenses Wears dentures Cancer History of steroid therapy Arthritis High cholesterol Non-smoker History of stress test History of echocardiogram Cardiology follow-up encounter PONV (postoperative nausea and vomiting) Encounter for education Depression Upper GI bleed Atherosclerosis of coronary artery of [place] heart without angina pectoris Obesity Essential (primary) hypertension GERD (gastroesophageal reflux disease) Type 2 diabetes mellitus Hyperlipidemia Home Medications ?Medication ?Instructions ?Recorded ?Last Taken ?Type aspirin 81 mg chewable tablet 81 mg PO DAILY health ma intenance 12/13/17 04/18/24 History benazepril 20 mg tablet 20 mg PO DAILY blood pressur e 12/13/17 09/06/19 21:00 History rosuvastatin 5 mg tablet 5 mg PO QHS cholesterol 11/2809/06/19 21:00 History acetaminophen 500 mg tablet 1,000 mg PO Q8 PRN pain 09/06/19 15:00 History paroxetine HCl 30 mg tablet 30 mg PO DAILY 01/26/20 History clopidogrel 75 mg tablet (Plavix) 75 mg PO QDAY #90 ta bs 01/02/22 04/18/24 Rx Held on 04/24/24. Instructions: Resume on 04/25/24. dicyclomine 10 mg capsule 10 mg PO BID 05/15/22 Unknow n History ascorbate calcium (vitamin C) 500 500 mg PO DAILY 05/31 06/22 Unknown History mg tablet cholecalciferol (vitamin D3) 25 25 mcg PO DAILY Unknown History mcg (1,000 unit) capsule mecobalamin (vitamin B12) 1,000 1,000 mcg PO DAILY Unknown History mcg chewable tablet metformin 500 mg tablet,extended 500 mg PO BID diabete s 06/18/23 Unknown History release 24 hr zinc acetate 50 mg (zinc) capsule 50 mg PO DAILY 06/18 Unknown History famotidine 40 mg tablet (Pepcid) 80 mg PO DAILY 04/24/24 History insulin glargine 100 unit/mL (3 10 unit subcut QPM 07/23 Unknown History mL) subcutaneous pen (Lantus Solostar U-100 Insulin) tramadol 50 mg tablet 50 mg PO Q6H PRN pain 3 days #5 04/24/24 Unknown Rx tabs isosorbide dinitrate 10 mg tablet See Rx Instructions .Route 05/14/24 Unknown Rx .COMPLEX #270 tabs metoprolol tartrate 25 mg tablet See Rx Instructions . Route 05/18/24 Unknown Rx .COMPLEX #180 TABLETS Allergy/AdvReac Type Severity Reaction Status Date / Time adhesive tape Allergy red, itchy Verified 12/29/24 20:13 atorvastatin (From Lipitor) Allergy myalgias Verified 12/29/24 20:13 Iodinated Contrast Media (CT) Allergy Shortness Verified 12/29/24 20:13 of breath Penicillins Allergy Rash Verified 12/29/24 20:13 pravastatin Allergy myalgias Verified 12/29/24 20:13 Family History Father COPD (chronic obstructive pulmonary disease) Myocardial infarction Mother Diabetes CAD (coronary artery disease) Hx CABG Alzheimers disease CVA (cerebral vascular accident) Brother H/O angioplasty Diabetes Brother CVA (cerebral vascular accident) Son Diabetes Surgical History History of cardiac catheterization History of coronary artery stent placement (05/26/19) History of left heart catheterization (12/07/11) Hx of appendectomy History of laminectomy History of bilateral hip replacements History of total bilateral knee replacement History of hysterectomy H/O total hip arthroplasty Social History (Updated 12/30/24 @ 00:[address] Chey Clark MD) household members: none Smoking Status: Never smoker alcohol intake: never substance use type: does not use diet: diabetic caffeine: Yes Type: coffee Number of servings: 3 what type of physical activity do you participate in: other details: PT frequency: 3-4 times per week duration: 30-45 minutes/day seatbelt use: always do you feel safe at home: Yes ROS ROS ED Constitutional Constitutional ED: Denies chills or fever(s) Eyes Eyes: Denies blurry vision or change in vision ENT ENT ED: Denies rhinorrhea or sore throat Cardiovascular Cardiovascular: Denies chest pain or palpitations Respiratory/Chest Respiratory/Chest: Denies cough or dyspnea Gastrointestinal Gastrointestinal: Denies nausea or vomiting Genitourinary Genitourinary ED: Denies dysuria or hematuria Musculoskeletal Musculoskeletal: Denies back pain or neck pain Integumentary Denies abscess or rash Neurologic Neurologic: Denies headache(s) or weakness Allergic/Immunologic Allergic/Immunologic ED: Denies mouth swelling or urticaria EXAM Physical Exam Const Vital Signs: 12/29/24 20:09 12/29/24 22:06 Temperature 98.2 F Temperature Source Oral Pulse Rate 71 70 Respiratory Rate 16 17 Blood Pressure 152/66 H 186/75 H Blood Pressure Mean 94 112 Pulse Ox 95 99 Oxygen Delivery Method Room Air Room Air Positive well nourished and well developed Constitutional Narrative: BMI is 40.0 General Appearance ED: well developed and NAD HEENT Reports moist mucous membranes Neck full ROM and supple Extremity Extremity Narrative: There is tenderness over the anterior and lateral aspects of the left hip. There is no obvious deformity noted. There is no pain with internal/external rotation. Strength is 5/5 bilaterally in lower extremities. There are no sensory deficits noted. Posterior tibial pulses are equal bilaterally. There is no calf tenderness noted. Neuro oriented x3, CN's II-XII intact bilaterally, moves all extremities and no sensory deficits noted Sensorium / Orientation: alert Motor Exam: strength 5/5 throughout Psych mental status grossly normal MDM MDM MDM Narrative Medical decision making narrative: Differential diagnosis includes fracture, prosthesis loosening, sprain, contusion, and arthritis. X-rays of the left hip and femur will be obtained to assess for fracture and loosening of the prosthesis. Radiography Diagnostic Testing: Clinical Impression(s) from Imaging Studies Femur X-Ray 12/29/24 20:53 IMPRESSION: Status post left hip arthroplasty with suspected loosening. No acute fracture. Reading Location: [facility] Pelvis X-Ray 12/29/24 20:53 IMPRESSION: Status post bilateral hip arthroplasty. No acute fracture. [facility] of the left femur were obtained. There are 4 views. On my independent interpretation, there is no acute fracture. There is no soft tissue swelling. There is previous left hip arthroplasty. There is questionable loosening of theprosthesis. Radiologist also interpreted the x-rays and agrees. X-rays of his pelvis were obtained. There is 1 view. On my independent interpretation, there are bilateral hip prosthesis. There is no acute fracture noted. Radiologist also interpreted the x-rays and agrees. Treatment and Re-Evaluation Narrative: Patient was given injection of morphine. Patient was feeling better on reevaluation. Patient will be ambulated with a walker here in the emergency department. If the patient is able to ambulate without difficulty with a walker, I feel that the patient can go on with oral analgesics and outpatient follow- up. However, if the patient is able to ambulate with a walker, patient will need to be admitted. Patient was unable to ambulate here in the emergency department with a walker. Because of this, I contacted the hospitalist. She will admit the patient for observation. Patient and family understood and were agreeable with the plan. All questions were answered. Discharge Plan Triage Chief Complaint: Lower Extremity Injury ED Provider: Enrique Morelos Dx/Rx/DC Orders Clinical Impression: Hip pain, left, Unable to ambulate Prescriptions: No Action paroxetine HCl 30 mg tablet 30 mg PO DAILY Patient Comments: take 1 tablet by mouth every morning metformin 500 mg tablet extended release 24 hr 500 mg PO BID Patient Comments: DIABETES dicyclomine 10 mg capsule 10 mg PO BID mecobalamin (vitamin B12) 1,000 mcg tablet,chewable 1,000 mcg PO DAILY ascorbate calcium (vitamin C) 500 mg tablet 500 mg PO DAILY cholecalciferol (vitamin D3) 25 mcg (1,000 unit) capsule 25 mcg PO DAILY zinc acetate 50 mg (zinc) capsule 50 mg PO DAILY insulin glargine [Lantus Solostar U-100 Insulin] 100 unit/mL (3 mL) insulin pen 10 unit subcut QPM Rx Instructions: 10 units at bedtime 45 units in the am famotidine [Pepcid] 40 mg tablet 80 mg PO DAILY acetaminophen 500 mg tablet 1,000 mg PO Q8 PRN (Reason: pain) Patient Comments: Pain aspirin 81 MG tablet,chewable 81 mg PO DAILY benazepril 20 MG tablet 20 mg PO DAILY Patient Comments: TAKE ONE TABLET BY MOUTH EVERY DAY rosuvastatin 5 MG tablet 5 mg PO QHS tramadol 50 mg tablet 50 mg PO Q6H PRN (Reason: pain) 3 Days Qty: 5 0RF clopidogrel [Plavix] 75 mg tablet 75 mg PO QDAY Qty: 90 3RF isosorbide dinitrate 10 mg tablet See Rx Instructions .ROUTE .COMPLEX Qty: 270 3RF Dose Instruction: take 1 tablet by mouth three times a day for blood pressure Rx Instructions: take 1 tablet by mouth three times a day for blood pressure metoprolol tartrate 25 mg tablet See Rx Instructions .ROUTE .COMPLEX Qty: 180 3RF Dose Instruction: take 1 tablet by mouth twice a day for blood pressure Rx Instructions: take 1 tablet by mouth twice a day for blood pressure Primary Care Provider: Lisa Gamble Referrals: Lisa Gamble DO [Primary Care Provider] - Print Language: [place] Disposition Disposition: Acute Care Hospital [facility] What to do if you have Problems For any increased pain, shortness of breath, bleeding, nausea or vomiting, chestpain, or any unexpected problems, contact your Primary Care Provider. Call [facility] ([phone]) or report tothe closest Emergency Room. Call 911 if necessary. 12/30/24 0018 Cosigner Signature (if applicable): CC: Dr. Lisa Gamble DO ~ Signed [facility]04-01-2025 Radiology Diagnostic study note [facility] Imaging Services [address] [place] [address] Femur Min 2 Views MR#: [id number] Acct: [id number] Name: LETICIA HERRERA Rep #: [id number] : 1945 F 79 From: Lino Jonesuwlennie STEVENS PCP: Dr. Lisa Gamble DO Status: REG ER Study:Femur Min 2 Views Date of Exam: Exam# [id number] Ordering Dr: Enrique Morelos DO PROCEDURE: FEMUR MIN 2 VIEWS 2024 REASON FOR EXAM: INJURY/PAIN TECHNIQUE: 4 view(s) of the left femur. COMPARISON: None FINDINGS: Bones: Status post left hip arthroplasty with deformity of the proximal femur. There is lucency around the prosthesis, suspicious for loosening. No acute fracture is demonstrated. Joints: Normal alignment at the hip and knee. Soft tissues: Soft tissues are unremarkable. Other: RAD/Femur Min 2 Views IMPRESSION: Status post left hip arthroplasty with suspected loosening. No acute fracture. Reading Location: [facility] CC: Dr. Enrique Morelos DO; Dr. Lisa Gamble DO ~ Lofter: Signed [facility]04-01-2025 Radiology Diagnostic study note [facility] Imaging Services [address] [place] [address] [id number] Pelvis 1 or 2 Views MR#: [id number] Acct: [id number] Name: LETICIA HERRERA Rep #: [id number] : 1945 F 79 From: Lino Quintana DO PCP: Dr. Lisa Gamble DO Status: REG ER Study:Pelvis 1 or 2 Views Date of Exam: 12/29/24 Exam# [id number] Ordering Dr: Enrique Morelos DO PROCEDURE: PELVIS 1 OR 2 VIEWS 2024 REASON FOR EXAM: INJURY/PAIN TECHNIQUE: 1 view(s) of the pelvis. COMPARISON: None FINDINGS: Hardware: Status post bilateral hip arthroplasties. Bones: No acute fracture. Degenerative changes of the pubic symphysis Joints: No dislocation. soft tissues: Small phleboliths. Other: RAD/Pelvis 1 or 2 Views IMPRESSION: Status post bilateral hip arthroplasty. No acute fracture. Reading Location: [facility] CC: Dr. Enrique Morelos DO; Dr. Lisa Gamble DO ~ Lofter: Signed [facility]04-01-2025 Discharge summary Author Enrique Morelos [facility] Note Date/Time December 30, 2024 12:1 8am [facility] Medical Records Department [address] [place] [address] Emergency Department Summary 12/29/24 MR#: [id number] Acct: [id number] Name: LETICIA HERRERA Rep #:[id number] : 1945 79 From: Enrique Blanco PCP: Dr. Lisa Gamble, DO Status:REG ER Location: ED HPI History of Present Illness HPI Narrative: Patient presents with pain to her left hip and thigh that became worse today. Patient states she was doing more walking than she normally does yesterday. Patient states her pain is sharp and stabbing. Patient states it is worse with weightbearing. Patient states it is better with rest. Patient mitts to some paresthesias in her left lower extremity. Patient states she was recently diagnosed with neuropathy. The patient has had prior open reduction internal fixation of the femur and hip fracture. Patient denies any fevers or chills. Patient denies any recent trauma or injury. Chief Complaint: Lower Extremity Injury Informant: patient Onset/Context/Timing Onset: Today Context: Gradual Onset Timing: Continuous Quality of Pain: Stabbing Location: Left hip and thigh Worsened by: Weightbearing Relieved by: Rest Associated Symptoms Associated Symptoms: Positive for Parasthesia; Negative for Weakness or Loss of Funtion [facility] Medical History Foot drop Loss of hearing Wears hearing aid Wears glasses Wears contact lenses Wears dentures Cancer History of steroid therapy Arthritis High cholesterol Non-smoker History of stress test History of echocardiogram Cardiology follow-up encounter PONV (postoperative nausea and vomiting) Encounter for education Depression Upper GI bleed Atherosclerosis of coronary artery of [place] heart without angina pectoris Obesity Essential (primary) hypertension GERD (gastroesophageal reflux disease) Type 2 diabetes mellitus Hyperlipidemia Home Medications ?Medication ?Instructions ?Recorded ?Last Taken ?Type aspirin 81 mg chewable tablet 81 mg PO DAILY health ma intenance 12/13/17 04/18/24 History benazepril 20 mg tablet 20 mg PO DAILY blood pressur e 12/13/17 09/06/19 21:00 History rosuvastatin 5 mg tablet 5 mg PO QHS cholesterol 11/2809/06/19 21:00 History acetaminophen 500 mg tablet 1,000 mg PO Q8 PRN pain 09/06/19 15:00 History paroxetine HCl 30 mg tablet 30 mg PO DAILY 01/26/20 History clopidogrel 75 mg tablet (Plavix) 75 mg PO QDAY #90 ta bs 01/02/22 04/18/24 Rx Held on 04/24/24. Instructions: Resume on 04/25/24. dicyclomine 10 mg capsule 10 mg PO BID 05/15/22 Unknow n History ascorbate calcium (vitamin C) 500 500 mg PO DAILY 05/31 06/22 Unknown History mg tablet cholecalciferol (vitamin D3) 25 25 mcg PO DAILY Unknown History mcg (1,000 unit) capsule mecobalamin (vitamin B12) 1,000 1,000 mcg PO DAILY Unknown History mcg chewable tablet metformin 500 mg tablet,extended 500 mg PO BID diabete s 06/18/23 Unknown History release 24 hr zinc acetate 50 mg (zinc) capsule 50 mg PO DAILY 06/18 Unknown History famotidine 40 mg tablet (Pepcid) 80 mg PO DAILY 04/24/24 History insulin glargine 100 unit/mL (3 10 unit subcut QPM 07/23 Unknown History mL) subcutaneous pen (Lantus Solostar U-100 Insulin) tramadol 50 mg tablet 50 mg PO Q6H PRN pain 3 days #5 04/24/24 Unknown Rx tabs isosorbide dinitrate 10 mg tablet See Rx Instructions .Route 05/14/24 Unknown Rx .COMPLEX #270 tabs metoprolol tartrate 25 mg tablet See Rx Instructions . Route 05/18/24 Unknown Rx .COMPLEX #180 TABLETS Allergy/AdvReac Type Severity Reaction Status Date / Time adhesive tape Allergy red, itchy Verified 12/29/24 20:13 atorvastatin (From Lipitor) Allergy myalgias Verified 12/29/24 20:13 Iodinated Contrast Media (CT) Allergy Shortness Verified 12/29/24 20:13 of breath Penicillins Allergy Rash Verified 12/29/24 20:13 pravastatin Allergy myalgias Verified 12/29/24 20:13 Family History Father COPD (chronic obstructive pulmonary disease) Myocardial infarction Mother Diabetes CAD (coronary artery disease) Hx CABG Alzheimers disease CVA (cerebral vascular accident) Brother H/O angioplasty Diabetes Brother CVA (cerebral vascular accident) Son Diabetes Surgical History History of cardiac catheterization History of coronary artery stent placement (05/26/19) History of left heart catheterization (12/07/11) Hx of appendectomy History of laminectomy History of bilateral hip replacements History of total bilateral knee replacement History of hysterectomy H/O total hip arthroplasty Social History (Updated 12/30/24 @ 00:[address] Chey Clark MD) household members: none Smoking Status: Never smoker alcohol intake: never substance use type: does not use diet: diabetic caffeine: Yes Type: coffee Number of servings: 3 what type of physical activity do you participate in: other details: PT frequency: 3-4 times per week duration: 30-45 minutes/day seatbelt use: always do you feel safe at home: Yes ROS ROS ED Constitutional Constitutional ED: Denies chills or fever(s) Eyes Eyes: Denies blurry vision or change in vision ENT ENT ED: Denies rhinorrhea or sore throat Cardiovascular Cardiovascular: Denies chest pain or palpitations Respiratory/Chest Respiratory/Chest: Denies cough or dyspnea Gastrointestinal Gastrointestinal: Denies nausea or vomiting Genitourinary Genitourinary ED: Denies dysuria or hematuria Musculoskeletal Musculoskeletal: Denies back pain or neck pain Integumentary Denies abscess or rash Neurologic Neurologic: Denies headache(s) or weakness Allergic/Immunologic Allergic/Immunologic ED: Denies mouth swelling or urticaria EXAM Physical Exam Const Vital Signs: 12/29/24 20:09 12/29/24 22:06 Temperature 98.2 F Temperature Source Oral Pulse Rate 71 70 Respiratory Rate 16 17 Blood Pressure 152/66 H 186/75 H Blood Pressure Mean 94 112 Pulse Ox 95 99 Oxygen Delivery Method Room Air Room Air Positive well nourished and well developed Constitutional Narrative: BMI is 40.0 General Appearance ED: well developed and NAD HEENT Reports moist mucous membranes Neck full ROM and supple Extremity Extremity Narrative: There is tenderness over the anterior and lateral aspects of the left hip. There is no obvious deformity noted. There is no pain with internal/external rotation. Strength is 5/5 bilaterally in lower extremities. There are no sensory deficits noted. Posterior tibial pulses are equal bilaterally. There is no calf tenderness noted. Neuro oriented x3, CN's II-XII intact bilaterally, moves all extremities and no sensory deficits noted Sensorium / Orientation: alert Motor Exam: strength 5/5 throughout Psych mental status grossly normal MDM MDM MDM Narrative Medical decision making narrative: Differential diagnosis includes fracture, prosthesis loosening, sprain, contusion, and arthritis. X-rays of the left hip and femur will be obtained to assess for fracture and loosening of the prosthesis. Radiography Diagnostic Testing: Clinical Impression(s) from Imaging Studies Femur X-Ray 12/29/24 20:53 IMPRESSION: Status post left hip arthroplasty with suspected loosening. No acute fracture. Reading Location: [facility] Pelvis X-Ray 12/29/24 20:53 IMPRESSION: Status post bilateral hip arthroplasty. No acute fracture. Reading Location: [facility] X-rays of the left femur were obtained. There are 4 views. On my independent interpretation, there is no acute fracture. There is no soft tissue swelling. There is previous left hip arthroplasty. There is questionable loosening of theprosthesis. Radiologist also interpreted the x-rays and agrees. X-rays of his pelvis were obtained. There is 1 view. On my independent interpretation, there are bilateral hip prosthesis. There is no acute fracture noted. Radiologist also interpreted the x-rays and agrees. Treatment and Re-Evaluation Narrative: Patient was given injection of morphine. Patient was feeling better on reevaluation. Patient will be ambulated with a walker here in the emergency department. If the patient is able to ambulate without difficulty with a walker, I feel that the patient can go on with oral analgesics and outpatient follow-up. However, if the patient is able to ambulate with a walker, patient will need to be admitted. Patient was unable to ambulate here in the emergency department with a walker. Because of this, I contacted the hospitalist. She will admit the patient for observation. Patient and family understood and were agreeable with the plan. All questions were answered. Discharge Plan Triage Chief Complaint: Lower Extremity Injury ED Provider: Enrique Morelos Dx/Rx/DC Orders Clinical Impression: Hip pain, left, Unable to ambulate Prescriptions: No Action paroxetine HCl 30 mg tablet 30 mg PO DAILY Patient Comments: take 1 tablet by mouth every morning metformin 500 mg tablet extended release 24 hr 500 mg PO BID Patient Comments: DIABETES dicyclomine 10 mg capsule 10 mg PO BID mecobalamin (vitamin B12) 1,000 mcg tablet,chewable 1,000 mcg PO DAILY ascorbate calcium (vitamin C) 500 mg tablet 500 mg PO DAILY cholecalciferol (vitamin D3) 25 mcg (1,000 unit) capsule 25 mcg PO DAILY zinc acetate 50 mg (zinc) capsule 50 mg PO DAILY insulin glargine [Lantus Solostar U-100 Insulin] 100 unit/mL (3 mL) insulin pen 10 unit subcut QPM Rx Instructions: 10 units at bedtime 45 units in the am famotidine [Pepcid] 40 mg tablet 80 mg PO DAILY acetaminophen 500 mg tablet 1,000 mg PO Q8 PRN (Reason: pain) Patient Comments: Pain aspirin 81 MG tablet,chewable 81 mg PO DAILY benazepril 20 MG tablet 20 mg PO DAILY Patient Comments: TAKE ONE TABLET BY MOUTH EVERY DAY rosuvastatin 5 MG tablet 5 mg PO QHS tramadol 50 mg tablet 50 mg PO Q6H PRN (Reason: pain) 3 Days Qty: 5 0RF clopidogrel [Plavix] 75 mg tablet 75 mg PO QDAY Qty: 90 3RF isosorbide dinitrate 10 mg tablet See Rx Instructions .ROUTE .COMPLEX Qty: 270 3RF Dose Instruction: take 1 tablet by mouth three times a day for blood pressure Rx Instructions: take 1 tablet by mouth three times a day for blood pressure metoprolol tartrate 25 mg tablet See Rx Instructions .ROUTE .COMPLEX Qty: 180 3RF Dose Instruction: take 1 tablet by mouth twice a day for blood pressure Rx Instructions: take 1 tablet by mouth twice a day for blood pressure Primary Care Provider: Lisa Gamble Referrals: Lisa Gamble DO [Primary Care Provider] - Print Language: [place] Disposition Disposition: Acute Care [facility] What to do if you have Problems For any increased pain, shortness of breath, bleeding, nausea or vomiting, chestpain, or any unexpected problems, contact your Primary Care Provider. Call [facility] ([phone]) or report to the closest Emergency Room. Call 911 if necessary. 12/30/24 0018 <Electronically signed by Enrique Morelos DO> Cosigner Signature (if applicable): CC: Dr. Lisa Gamble DO ~ Signed [facility] Work Phone: 1(573) 633-806504-01-2025 Evaluation note* Diagnosis Onset Date Resolution Status Admit Date Follicular lymphoma grade 3a chronic October 13, 2024 1:06pm Hip pain, left acute December 30, 2024 12:13am [facility] Work Phone: 1(865) 507-992802-25-2025 Procedure note [facility] Pulmonary Services/Neurology [address] [place] [address] MR#: [id number] Acct: [id number] Name: LETICIA HERRERA Rep #:[id number] : 1945 78 From: Polina Howard MD Referring Dr: Carol Ann Antunez DPM Statu s: REG CLI Location: PSN Date: 11/24/24 Sex: F C NCS and/or EMG Patient Report Ordering Doctor: Carol Ann Antunez DATE OF SERVICE: 11/24/24 Clinical Summary: 78 year old female patient presenting with symptoms of pain in both feet. Since September, she also has developed some weakness in the left foot. She has a history of diabetes as well as bilateral kneeand hip replacements in the past but not recently. Nerve Conduction Studies Summary: All SNAP's were absent in the bilateral lower extremities. The left peroneal-EDB CMAP distal latency was prolonged with reduced amplitudes at the ankle and fibular head. The left peroneal-EDB CMAP amplitude was absent at the knee. The left peroneal motor conduction velocity was reduced at the fibular head. The left peroneal-TA CMAP distal latency was prolonged. The left tibial-AH CMAP distal latency was prolonged. The left tibial motor conduction velocity wasreduced. The right tibial AH F-wave onset latency was prolonged. Needle Examination Summary: Needle examination of select muscles in the bilateral lower extremities demonstrated increased insertional activity and spontaneous activity (positive sharpwaves and fibrillation potentials) in the left tibialis anterior, left peroneus longus, bilateral medial gastrocnemius, and left flexor digitorum longus muscle. There was a higher proportion of motor unit action potentials with reduced recruitment, increased amplitude, increased duration, and polyphasia in the lefttibialis anterior, left medial gastrocnemius, and right flexor digitorum longus muscles. Impression: This is an abnormal bilateral lower extremity study. There is electrodiagnostic evidence of a predominantly axonal, sensorimotor, length-dependent, peripheral polyneuropathy with active denervation. 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 R ecommend imaging such as neuromuscular ultrasound to confirm localization of a left peroneal nerve entrapment. Multi Select Codes Neurology Neurology Interp Codes: 44016-80 Musc test done w/n test comp (interp) (2) and 21735-03 Nrv cndj test 9-10 studies (interp) 11/24/24 1026 MD> Date _ Polina Howard MD CC: DPM Dr. Carol Ann Antunez; Dr. Polina Howard MD; Dr. Lisa Gamble DO ~ Date Dictated: 11/24/24831 Date Transcribed: 11/24/24831 Lofter: Signed [facility]11-13-2024 Evaluation note* Diagnosis Onset Date Resolution Status Admit Date Essential (primary) hypertension chronic August 12, 2 024 12:48pm History of coronary artery stent placement May 26, 2019 chronic August 12, 2024 12:48pm Hyperlipidemia chronic July 312023 12:48pm Follicular lymphoma grade 3a chronic October 13 1:06pm [facility] Work Phone: 1(713) 449-149307-03-2024 Telephone encounter Note* Telephone Encounter - Lynda Rojas - 04/01/2024 4:04 PM EDT Called patient and spoke with her she said she did not want appointment with us. She has appointment at the [facility] Lynda Rojas [facility]07-03-2024 Miscellaneous Notes* Telephone Encounter - Lynda Rojas - 04/01/2024 4:04 PM EDT Called patient and spoke with her she said she did not want appointment with us. She has appointment at the [facility] Lynda Rojas [facility] Note* Significant Event - Susan Hickey RN - 03/17/2024 2:59 PM EDT Secure chat to Dr. Mason about BP; 20mg labetalol ordered [facility]06-18-2024 Miscellaneous Notes* Significant Event - Susan Hickey RN - 03/17/2024 2:59 PM EDT Secure chat to Dr. Mason about BP; 20mg labetalol ordered * Significant Event - Susan Hickey RN - 03/17/2024 2:34 PM EDT Secure chat to Dr. 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] Procedures Nasal Endoscopy with Navigation [id number] - [place] NASAL/SINUS NDSC SURG W/BX POLYPC/DBRDMT SPX Surgeons * Valdemar Guardado - Primary Resident/Fellow/Other Utility Bag Assembler: Surgeons and Role: * Kirsty Camara MD - Resident - Assisting Procedure Summary Anesthesia: General ASA: III Anesthesia Staff: Anesthesiologist: Julieta Mason MD KNITTING TESTER: Diana Morin APRN-KNITTING TESTER C-AA: IVAN Thorne Estimated Blood Loss: 6 mL Intra-op Medications: Administrations occurring from 1200 to 1330 on 03/17/24: Medication Name Total Dose sodium chloride 0.9 % irrigation solution 1,000 mL oxymetazoline (Afrin) 0.05 % nasal spray 3 spray Anesthesia Record Intraprocedure I/O Totals None Specimen: ID Type Source Tests Collected by Time 1 : left nasopharyngeal mass Tissue NASOPHARYNX BIOPSY SURGICAL PATHOLOGY EXAM Valdemar Guardado MD 03/17/2024 9411 2 : LEFT NASOPHARYNGEAL MASS Tissue NASOPHARYNX BIOPSY FLOW CYTOMETRY TEST Valdemar Guardado MD 03/17/2024 1323 Staff: Scrub Person: Radha Blade Worker: Verito Scrub Person: Moses Queen Blade Worker: Arely Drains and/or Catheters: * None in log * Findings: soft tissue mass within the nasopharynx and extending into the left nasal cavity. Palate also with firm lesion with mass like effect. Indications: Rhoda Herrera is an 78 y.o. 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 The patient was seen in the preoperative area. The risks, benefits, complications, treatment options, non-operative alternatives, expected recovery and outcomes were discussed with the patient. The possibilities of reaction to medication, pulmonary aspiration, injury to surrounding structures, bleeding, recurrent infection, the need for additional procedures, failure to diagnose a condition, and creating a complication requiring transfusion or operation were discussed with the patient. The patient concurred with the proposed plan, giving informed consent. The site of surgery was properly noted/marked if necessary per policy. The patient has been actively warmed in preoperative area. Procedure Details: The patient was brought back to the OR and laid supine on the bed. She was placed under general anesthesia with an oral ETT. The table was turned 90 degrees toward the ENT team. Time out was performed by Dr. Guardado. A zero degree nasal endoscope was inserted into the right and then left nasal cavity. The lesion, as described above was noted. With straight forceps, biopsies were taken of the lesion and sent for frozen pathology. These revealed malignancy however more tissue was needed for flow cytometry. We then took another biopsy through the left nasal cavity and sent that for lymphoma protocol. Afrin pledgets and suction bovie were used for hemostasis. The nose was irrigated copiously. The patient tolerated the procedure well. Complications: None; patient tolerated the procedure well. Disposition: PACU - hemodynamically stable. Condition: stable Attending Attestation: Valdemar Guardado [facility] Work Phone: 1(288) 994-974806-18-2024 Note* Significant Event - Susan Hickey RN - 03/17/2024 2:34 PM EDT Secure chat to Dr. Mason with anesthesia; 10mg labetalol ordered [facility] Work Phone: 1([phone]) 719-224906-18-2024 Hospital Discharge instructions* Discharge Instructions* Kirsty Camara MD - 03/17/2024 1:44 PM EDT You may have some bleeding from the nose, you may use afrin nasal spray if this happens. If the bleeding does not stop, please call us. Please call with any concerning symptoms such as fever, vomiting, severe pain, changes in mental status. OK to shower tomorrow. OK to resume regular diet. Please take tylenol and ibuprofen for pain. 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] Procedures Nasal Endoscopy with Navigation 74108 - [place] NASAL/SINUS NDSC SURG W/BX POLYPC/DBRDMT SPX Surgeons * Valdemar Guardado - Primary Resident/Fellow/Other Utility Bag Assembler: Surgeons and Role: * Kirsty Camara MD - Resident - Assisting Procedure Summary Anesthesia: General ASA: III Anesthesia Staff: Anesthesiologist: Julieta Mason MD KNITTING TESTER: Diana Morin APRN-KNITTING TESTER C-AA: IVAN Thorne Estimated Blood Loss: 6 mL Intra-op Medications: Administrations occurring from 1200 to 1330 on 03/17/24: Medication Name Total Dose sodium chloride 0.9 % irrigation solution 1,000 mL oxymetazoline (Afrin) 0.05 % nasal spray 3 spray Anesthesia Record Intraprocedure I/O Totals None Specimen: ID Type Source Tests Collected by Time 1 : left nasopharyngeal mass Tissue NASOPHARYNX BIOPSY SURGICAL PATHOLOGY EXAM Valdemar Guardado MD 03/17/2024 1249 2 : LEFT NASOPHARYNGEAL MASS Tissue NASOPHARYNX BIOPSY FLOW CYTOMETRY TEST Valdemar Guardado MD 03/17/2024 1324 Staff: Scrub Person: Radha Blade Worker: Verito Scrub Person: Moses Queen Blade Worker: Arely Drains and/or Catheters: * None in log * Findings: soft tissue mass within the nasopharynx and extending into the left nasal cavity. Palate also with firm lesion with mass like effect. Indications: Rhoda Herrera is an 78 y.o. 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 The patient was seen in the preoperative area. The risks, benefits, complications, treatment options, non-operative alternatives, expected recovery and outcomes were discussed with the patient. The possibilities of reaction to medication, pulmonary aspiration, injury to surrounding structures, bleeding, recurrent infection, the need for additional procedures, failure to diagnose a condition, and creating a complication requiring transfusion or operation were discussed with the patient. The patient concurred with the proposed plan, giving informed consent. The site of surgery was properly noted/marked if necessary per policy. The patient has been actively warmed in preoperative area. Procedure Details: The patient was brought back to the OR and laid supine on the bed. She was placed under general anesthesia with an oral ETT. The table was turned 90 degrees toward the ENT team. Time out was performed by Dr. Guardado. A zero degree nasal endoscope was inserted into the right and then left nasal cavity. The lesion, as described above was noted. With straight forceps, biopsies were taken of the lesion and sent for frozen pathology. These revealed malignancy however more tissue was needed for flow cytometry. We then took another biopsy through the left nasal cavity and sent that for lymphoma protocol. Afrin pledgets and suction bovie were used for hemostasis. The nose was irrigated copiously. The patient tolerated the procedure well. Complications: None; patient tolerated the procedure well. Disposition: PACU - hemodynamically stable. Condition: stable Attending Attestation: Valdemar Guardado [facility] Work Phone: [phone] 228-938906-18-2024 Attending History and physical note* Valdemar Guardado MD - 03/17/2024 11:16 AM EDT H&P reviewed. The patient was examined and there are no changes to the H&P. Source Note - Henrique Feng MD - 03/10/2024 9:15 AM EDT CPM/PAT Evaluation Name: Leticia Camacholer (Leticiara Javier Duong) /Age: 312/29/1945/78 y.o. In-Person 78 y.o. female scheduled for Nasal Endoscopy on 03/20/[address] Guardado for nasopharyngeal mass.PMHX includes CAD w/ stent (04/2019), HTN, HLD, IDDM, Vertigo, and depression. Presents to CPM todayfor perioperative risk stratification and optimization Past Medical History: Diagnosis Date Anxiety Coronary artery disease s/p 2 stents (04/2019) Depression Epistaxis GERD (gastroesophageal reflux disease) HL (hearing loss) Hyperlipidemia Hypertension Sinusitis Spinal stenosis Type 2 diabetes mellitus (Multi) Insulin Dependent Vertigo Past Surgical History: Procedure Laterality Date APPENDECTOMY CAROTID STENT FEMUR FRACTURE SURGERY HIP ARTHROPLASTY HYSTERECTOMY KNEE ARTHROPLASTY Patient has no history on file for sexual activity. No family history on file. Allergies Allergen Reactions Adhesive Tape-Silicones Unknown skin irritation after tape removed which developed into an infection USE ONLY PAPER TAPE Penicillins Rash Prior to Admission medications Medication Sig Start Date End Date Taking? Authorizing Provider ascorbic acid (Vitamin C) 500 mg/5 mL liquid Take by mouth once daily. Historical Provider, aspirin 81 mg EC tablet Take 1 tablet (81 mg) by mouth once daily. Historical Provider, benazepril (Lotensin) 20 mg tablet Take 1 tablet (20 mg) by mouth once daily. 02/17/24 Historical Provider, clopidogrel (Plavix) 75 mg tablet Take 1 tablet (75 mg) by mouth once daily. 12/29/23 Historical Provider, cyanocobalamin (Vitamin B-12) 250 mcg tablet Take 1 tablet (250 mcg) by mouth once daily. Historical Provider, dicyclomine (Bentyl) 10 mg capsule START BY TAKING 1 tablet by mouth at bedtime and before LARGEST M... (REFER TO PRESCRIPTION NOTES). 02/01/24 Historical Provider, Droplet Pen Needle 31 gauge x 02/12 needle use twice a day to inject INSULIN 11/18/23 Historical Provider, famotidine (Pepcid) 40 mg tablet Take 1 tablet (40 mg) by mouth 2 times a day. 12/10/23 Historical Provider, isosorbide dinitrate (Isordil) 10 mg tablet take 1 tablet by mouth three times a day for blood pressure 02/20/24 Historical Provider, MD Nieves Solostar U-100 Insulin 100 unit/mL (3 mL) pen inject 30 units subcutaneously every morning and 50 units every evening 10/14/23 Historical Provider, metFORMIN XR 500 mg 24 hr tablet Take 2 tablets (1,000 mg) by mouth 2 times a day. 08/28/23 Historical Provider, metoprolol tartrate (Lopressor) 25 mg tablet 02/19/24 Historical Provider, OneTouch Ultra Test strip use 1 TEST STRIP to TEST BLOOD SUGAR 4 TIMES A DAY 05/29/23 Historical Provider, OneTouch Ultra2 Meter misc use to TEST BLOOD SUGAR daily 04/04/23 Historical Provider, PARoxetine (Paxil) 30 mg tablet Take 1 tablet (30 mg) by mouth once daily in the morning. Take before meals. 11/27/23 Historical Provider, rosuvastatin (Crestor) 5 mg tablet 02/19/24 Historical Provider, PAT ROS: Constitutional: neg Neuro/Psych: nervous/anxious Eyes: neg Ears: hearing loss Nose: sinus congestion epistaxis Mouth: mouth lesions Throat: voice change Neck: neg Cardio: neg Respiratory: shortness of breath (When breathing through nose) Endocrine: neg GI: neg : neg Musculoskeletal: neg Hematologic: neg Skin: neg Physical Exam Vitals reviewed. Constitutional: Appearance: Normal appearance. HENT: Head: Normocephalic and atraumatic. Right Ear: External ear normal. Left Ear: External ear normal. Nose: Nose normal. Mouth/Throat: Mouth: Mucous membranes are moist. Eyes: Extraocular Movements: Extraocular movements intact. Cardiovascular: Rate and Rhythm: Normal rate and regular rhythm. Heart sounds: Normal heart sounds. Pulmonary: Effort: Pulmonary effort is normal. Breath sounds: Normal breath sounds. Musculoskeletal: General: Normal range of motion. Cervical back: Normal range of motion. Skin: General: Skin is warm and dry. Neurological: General: No focal deficit present. Mental Status: She is alert and oriented to person, place, and time. Psychiatric: Mood and Affect: Mood normal. Behavior: Behavior normal. PAT AIRWAY: Airway: Mallampati:: II TM distance:: >3 FB Neck ROM:: Full upper dentures and lower dentures Visit Vitals BP 134/66 Pulse 79 Temp 36.2 C (97.1 F) (Temporal) DASI Risk Score Flowsheet Row Most Recent Value DASI SCORE 18.95 METS Score (Will be calculated only when all the questions are answered) 5.1 Caprini DVT Assessment Flowsheet Row Most Recent Value DVT Score 9 Current Status Major surgery planned, including arthroscopic and laproscopic (1- 2 hours) History Prior major surgery Age Over 75 years BMI 31-40 (Obesity) Modified Frailty Index No data to display CHADS2 Stroke Risk Current as of 47 minutes ago N/A 3 to 100%: High Risk 2 to < 3%: Medium Risk 0 to < 2%: Low Risk Last Change: N/A This score determines the patient's risk of having a stroke if the patient has atrial fibrillation. This score is not applicable to this patient. Components are not calculated. Revised Cardiac Risk Index Flowsheet Row Most Recent Value Revised Cardiac Risk Calculator 2 Apfel Simplified Score Flowsheet Row Most Recent Value Apfel Simplified Score Calculator 3 Risk Analysis Index Results This Encounter No data found in the last 1 encounters. Stop Bang Score Flowsheet Row Most Recent Value Do you snore loudly? 0 Do you often feel tired or fatigued after your sleep? 0 Has anyone ever observed you stop breathing in your sleep? 0 Do you have or are you being treated for high blood pressure? 1 Recent BMI (Calculated) 36.6 Is BMI greater than 35 kg/m2? 1=Yes Age older than 50 years old? 1=Yes Is your neck circumference greater than 17 inches (Male) or 16 inches (Female)? 0 Gender - Male 0=No STOP-BANG Total Score 3 No results found for this or any previous visit (from the past 24 hour(s)). Assessment & Plan: 78 y.o. female scheduled for Nasal Endoscopy on 03/20/[address] Guardado for malignant nasopharyngeal mass. PMHX includes CAD w/ stent (04/2019), HTN, HLD, IDDM, Vertigo, and depression. Presents toCPM today for perioperative risk stratification and optimization Neuro: Vertigo/Depression Well controlled on current medications No neurologic diagnosis, however, the patient is at increased risk for perioperative delirium secondary to age, depression, decreased functional status, type and duration of surgery, Patient instructed on and provided cognitive exercises Patient is at increased risk for perioperative CVA secondary to cardiac disease, HTN, DM, increased age, hypercoagulable state HEENT: Nasopharyngeal mass Sx began last year w/ progressive nasal and left ear obstruction. Left ear tube placed w/out resolution of sx. 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 Plan for nasal endoscopy on 03/20/2024 w/ Dr. Guardado. Pt reports recent epistaxis along w/ shortness of breath when breathing through nose. CT Neck w/ Contrast (03/05/2024) IMPRESSION: There is a large soft tissue mass which appears centered within the left nasopharynx, however crosses the midline to extend into the right nasopharynx and involves the posterior nasal cavity on the left. Inferiorly the mass extends to the level of the left oropharynx. The mass abuts the left lateral pterygoid and prevertebral muscles and abuts the left cervical internal carotid artery at the level of the skull base spinal 180 degrees. There is loss of fat signal within the left pterygoid palatine fossa which may represent perineural involvement. No definite involvement of the clivus is noted. There is lymphadenopathy throughout the left neck. 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 Cardiovascular: CAD w/ stent (04/2019) Pt reports having an athlerosclerosis calcium study done in 2019 (hospital promotion), denies angina or PRINCE sx at that time, results showed high calcium burden, pt underwent a cardiac cath that showed >90 occlusion in 2 vessels (per patient), 2 stents were placed, no post-operative complications. Pt denies current chest pain or PRINCE, able to ambulate up/down stairs w/out issue. Pending upload of cardiology documents/studies from pt's primary music engineer (Dr. Gutierrez in [place], [place]). HTN/HLD Well controlled on current medications METS: 5.1 RCRI: 2 points, 10.1% risk for postoperative MACE TR[place]ON: 0.2% risk for 30 day postoperative MACE EKG - HR 67, NSR (03/10/2024) Pulmonary: No pulmonary diagnosis, however patient is at increased risk of perioperative complications secondary to age > 60, obesity, duration of surgery > 2 hours, types of anesthetic Stop Bang score is 3 placing patient at intermediate risk for KEVIN ARISCAT: <26 points, 1.6% risk of in-hospital postoperative pulmonary complication PRODIGY: High risk for opioid induced respiratory depression Pumonary toilet education discussed, patient also provided deep breathing exercises and incentive spirometry educational handout Renal: No renal diagnosis, however patient is at increase risk for perioperative renal complications secondary to Age equal to or greater than 56, BMI equal to or greater than 30, HTN, diabetes, use of an brie, arb, or NSAID Pt at High risk for perioperative NEY based on Dynamic Predictive Scoring Tool for Perioperative NEY Endocrine: IDDM Well controlled on current medications Hematologic: No hematologic diagnosis, however patient is at an increased risk for DVT Caprini Score 9, patient at High risk for perioperative DVT. Patient provided with VTE education/handout. Gastrointestinal: No GI diagnosis or significant findings on chart review or clinical presentation and evaluation. Eat-10 score 0 Apfel 3 Infectious disease: No infectious diagnosis or significant findings on chart review or clinical presentation and evaluation. Musculoskeletal: No diagnosis or significant findings on chart review or clinical presentation and evaluation. Anesthesia/Airway: No anesthesia complications Medication instructions and NPO guidelines reviewed with the patient. All questions or concerns discussed and addressed. Patient seen and staffed with Dr. Post [facility] Work Phone: [phone] History and physical note* Valdemar Guardado MD - 03/17/2024 11:16 AM EDT H&P reviewed. The patient was examined and there are no changes to the H&P. Source Note - Henrique Feng MD - 03/10/2024 9:15 AM EDT CPM/PAT Evaluation Name: Leticia Herrrea (Leticia Duong) /Age: 312/29/1945/78 y.o. In-Person 78 y.o. female scheduled for Nasal Endoscopy on 03/20/[address] Guardado for nasopharyngeal mass.PMHX includes CAD w/ stent (04/2019), HTN, HLD, IDDM, Vertigo, and depression. Presents to CPM todayfor perioperative risk stratification and optimization Past Medical History: Diagnosis Date Anxiety Coronary artery disease s/p 2 stents (04/2019) Depression Epistaxis GERD (gastroesophageal reflux disease) HL (hearing loss) Hyperlipidemia Hypertension Sinusitis Spinal stenosis Type 2 diabetes mellitus (Multi) Insulin Dependent Vertigo Past Surgical History: Procedure Laterality Date APPENDECTOMY CAROTID STENT FEMUR FRACTURE SURGERY HIP ARTHROPLASTY HYSTERECTOMY KNEE ARTHROPLASTY Patient has no history on file for sexual activity. No family history on file. Allergies Allergen Reactions Adhesive Tape-Silicones Unknown skin irritation after tape removed which developed into an infection USE ONLY PAPER TAPE Penicillins Rash Prior to Admission medications Medication Sig Start Date End Date Taking? Authorizing Provider ascorbic acid (Vitamin C) 500 mg/5 mL liquid Take by mouth once daily. Historical Provider, aspirin 81 mg EC tablet Take 1 tablet (81 mg) by mouth once daily. Historical Provider, benazepril (Lotensin) 20 mg tablet Take 1 tablet (20 mg) by mouth once daily. 02/17/24 Historical Provider, clopidogrel (Plavix) 75 mg tablet Take 1 tablet (75 mg) by mouth once daily. 12/29/23 Historical Provider, cyanocobalamin (Vitamin B-12) 250 mcg tablet Take 1 tablet (250 mcg) by mouth once daily. Historical Provider, dicyclomine (Bentyl) 10 mg capsule START BY TAKING 1 tablet by mouth at bedtime and before LARGEST M... (REFER TO PRESCRIPTION NOTES). 02/01/24 Historical Provider, Droplet Pen Needle 31 gauge x 02/12 needle use twice a day to inject INSULIN 11/18/23 Historical Provider, famotidine (Pepcid) 40 mg tablet Take 1 tablet (40 mg) by mouth 2 times a day. 12/10/23 Historical Provider, isosorbide dinitrate (Isordil) 10 mg tablet take 1 tablet by mouth three times a day for blood pressure 02/20/24 Historical Provider, MD Nieves Solmpar U-100 Insulin 100 unit/mL (3 mL) pen inject 30 units subcutaneously every morning and 50 units every evening 10/14/23 Historical Provider, metFORMIN XR 500 mg 24 hr tablet Take 2 tablets (1,000 mg) by mouth 2 times a day. 08/28/23 Historical Provider, metoprolol tartrate (Lopressor) 25 mg tablet 02/19/24 Historical Provider, MD Zimmeruch Ultra Test strip use 1 TEST STRIP to TEST BLOOD SUGAR 4 TIMES A DAY 05/29/23 Historical Provider, MD BarrowTouch Ultra2 Meter misc use to TEST BLOOD SUGAR daily 04/04/23 Historical Provider, PARoxetine (Paxil) 30 mg tablet Take 1 tablet (30 mg) by mouth once daily in the morning. Take before meals. 11/27/23 Historical Provider, rosuvastatin (Crestor) 5 mg tablet 02/19/24 Historical Provider, MD EVANS ROS: Constitutional: neg Neuro/Psych: nervous/anxious Eyes: neg Ears: hearing loss Nose: sinus congestion epistaxis Mouth: mouth lesions Throat: voice change Neck: neg Cardio: neg Respiratory: shortness of breath (When breathing through nose) Endocrine: neg GI: neg : neg Musculoskeletal: neg Hematologic: neg Skin: neg Physical Exam Vitals reviewed. Constitutional: Appearance: Normal appearance. HENT: Head: Normocephalic and atraumatic. Right Ear: External ear normal. Left Ear: External ear normal. Nose: Nose normal. Mouth/Throat: Mouth: Mucous membranes are moist. Eyes: Extraocular Movements: Extraocular movements intact. Cardiovascular: Rate and Rhythm: Normal rate and regular rhythm. Heart sounds: Normal heart sounds. Pulmonary: Effort: Pulmonary effort is normal. Breath sounds: Normal breath sounds. Musculoskeletal: General: Normal range of motion. Cervical back: Normal range of motion. Skin: General: Skin is warm and dry. Neurological: General: No focal deficit present. Mental Status: She is alert and oriented to person, place, and time. Psychiatric: Mood and Affect: Mood normal. Behavior: Behavior normal. PAT AIRWAY: Airway: Mallampati:: II TM distance:: >3 FB Neck ROM:: Full upper dentures and lower dentures Visit Vitals BP 134/66 Pulse 79 Temp 36.2 C (97.1 F) (Temporal) DASI Risk Score Flowsheet Row Most Recent Value DASI SCORE 18.95 METS Score (Will be calculated only when all the questions are answered) 5.1 Caprini DVT Assessment Flowsheet Row Most Recent Value DVT Score 9 Current Status Major surgery planned, including arthroscopic and laproscopic (1- 2 hours) History Prior major surgery Age Over 75 years BMI 31-40 (Obesity) Modified Frailty Index No data to display CHADS2 Stroke Risk Current as of 47 minutes ago N/A 3 to 100%: High Risk 2 to < 3%: Medium Risk 0 to < 2%: Low Risk Last Change: N/A This score determines the patient's risk of having a stroke if the patient has atrial fibrillation. This score is not applicable to this patient. Components are not calculated. Revised Cardiac Risk Index Flowsheet Row Most Recent Value Revised Cardiac Risk Calculator 2 Apfel Simplified Score Flowsheet Row Most Recent Value Apfel Simplified Score Calculator 3 Risk Analysis Index Results This Encounter No data found in the last 1 encounters. Stop Bang Score Flowsheet Row Most Recent Value Do you snore loudly? 0 Do you often feel tired or fatigued after your sleep? 0 Has anyone ever observed you stop breathing in your sleep? 0 Do you have or are you being treated for high blood pressure? 1 Recent BMI (Calculated) 36.6 Is BMI greater than 35 kg/m2? 1=Yes Age older than 50 years old? 1=Yes Is your neck circumference greater than 17 inches (Male) or 16 inches (Female)? 0 Gender - Male 0=No STOP-BANG Total Score 3 No results found for this or any previous visit (from the past 24 hour(s)). Assessment & Plan: 78 y.o. female scheduled for Nasal Endoscopy on 03/20/[address] Guardado for malignant nasopharyngeal mass. PMHX includes CAD w/ stent (04/2019), HTN, HLD, IDDM, Vertigo, and depression. Presents toCPM today for perioperative risk stratification and optimization Neuro: Vertigo/Depression Well controlled on current medications No neurologic diagnosis, however, the patient is at increased risk for perioperative delirium secondary to age, depression, decreased functional status, type and duration of surgery, Patient instructed on and provided cognitive exercises Patient is at increased risk for perioperative CVA secondary to cardiac disease, HTN, DM, increased age, hypercoagulable state HEENT: Nasopharyngeal mass Sx began last year w/ progressive nasal and left ear obstruction. Left ear tube placed w/out resolution of sx. 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 Plan for nasal endoscopy on 03/20/2024 w/ Dr. Guardado. Pt reports recent epistaxis along w/ shortness of breath when breathing through nose. CT Neck w/ Contrast (03/05/2024) IMPRESSION: There is a large soft tissue mass which appears centered within the left nasopharynx, however crosses the midline to extend into the right nasopharynx and involves the posterior nasal cavity on the left. Inferiorly the mass extends to the level of the left oropharynx. The mass abuts the left lateral pterygoid and prevertebral muscles and abuts the left cervical internal carotid artery at the level of the skull base spinal 180 degrees. There is loss of fat signal within the left pterygoid palatine fossa which may represent perineural involvement. No definite involvement of the clivus is noted. There is lymphadenopathy throughout the left neck. 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 Cardiovascular: CAD w/ stent (04/2019) Pt reports having an athlerosclerosis calcium study done in 2019 (hospital promotion), denies angina or PRINCE sx at that time, results showed high calcium burden, pt underwent a cardiac cath that showed >90 occlusion in 2 vessels (per patient), 2 stents were placed, no post-operative complications. Pt denies current chest pain or PRINCE, able to ambulate up/down stairs w/out issue. Pending upload of cardiology documents/studies from pt's primary music engineer (Dr. Gutierrez in [place], [place]). HTN/HLD Well controlled on current medications METS: 5.1 RCRI: 2 points, 10.1% risk for postoperative MACE [place]: 0.2% risk for 30 day postoperative MACE EKG - HR 67, NSR (03/10/2024) Pulmonary: No pulmonary diagnosis, however patient is at increased risk of perioperative complications secondary to age > 60, obesity, duration of surgery > 2 hours, types of anesthetic Stop Bang score is 3 placing patient at intermediate risk for KEVIN ARISCAT: <26 points, 1.6% risk of in-hospital postoperative pulmonary complication PRODIGY: High risk for opioid induced respiratory depression Pumonary toilet education discussed, patient also provided deep breathing exercises and incentive spirometry educational handout Renal: No renal diagnosis, however patient is at increase risk for perioperative renal complications secondary to Age equal to or greater than 56, BMI equal to or greater than 30, HTN, diabetes, use of an brie, arb, or NSAID Pt at High risk for perioperative NEY based on Dynamic Predictive Scoring Tool for Perioperative NEY Endocrine: IDDM Well controlled on current medications Hematologic: No hematologic diagnosis, however patient is at an increased risk for DVT Caprini Score 9, patient at High risk for perioperative DVT. Patient provided with VTE education/handout. Gastrointestinal: No GI diagnosis or significant findings on chart review or clinical presentation and evaluation. Eat-10 score 0 Apfel 3 Infectious disease: No infectious diagnosis or significant findings on chart review or clinical presentation and evaluation. Musculoskeletal: No diagnosis or significant findings on chart review or clinical presentation and evaluation. Anesthesia/Airway: No anesthesia complications Medication instructions and NPO guidelines reviewed with the patient. All questions or concerns discussed and addressed. Patient seen and staffed with Dr. Post documented in this [facility] Work Phone: 1([phone]) 504-612005-30-2024 History of Present illness Narrative* Valdemar Guardado MD - 02/27/2024 10:30 AM EDT ENT Outpatient Consultation Chief Complaint: Nasopharyngeal mass History Of Present Illness Leticia Herrera is a 78 y.o. female presents for evaluation of a nasopharyngeal mass. She was referred by . Patient reports a history of progressive nasal and left ear symptoms that extended back to last year. She started to develop nasal obstruction and muffled hearing on the left-hand side. She ultimately had a tube placed and at that time reportedly had a biopsy of her nasopharynx that was negative. However her symptoms continued and this ultimately led to a CT scan that shows a nasopharyngeal mass. I do not have the images available however have the report available and also comments on some lymphadenopathy. She denies pain. Her main symptom is nasal obstruction. Past Medical History Coronary artery disease with prior stent placement. Hypertension, reflux, diabetes, depression, hyperlipidemia Surgical History Prior cardiac stents Social History She reports that she has never smoked. She has never used smokeless tobacco. She reports that she does not currently use alcohol. No history on file for drug use. Family History Reviewed and noncontributory to presenting problem Allergies Adhesive tape-silicones and Penicillins Physical Exam: CONSTITUTIONAL: No acute distress VOICE: No hoarseness or other abnormality RESPIRATION: Breathing comfortably, no stridor CV: No clubbing/cyanosis/edema in hands EYES: EOM intact, sclera normal NEURO: Alert and oriented times 3, Cranial nerves II-XII grossly intact and symmetric bilaterally HEAD AND FACE: Symmetric facial features, no masses or lesions, sinuses non- tender to palpation SALIVARY GLANDS: Parotid and submandibular glands normal bilaterally EARS: Normal external ears, external auditory canals, and TMs to otoscopy, normal hearing to whispered voice. NOSE: External nose midline, anterior rhinoscopy is normal with limited visualization to the anterior aspect of the interior turbinates, no bleeding or drainage, no lesions ORAL CAVITY/OROPHARYNX/LIPS: No mucosal changes however there is a palpable mass involving the leftside of the soft palate submucosally PHARYNGEAL TYLER: No masses or lesions NECK/LYMPH: Some palpable lymph nodes bilaterally, no thyroid masses, trachea midline SKIN: Neck skin is without scar or injury PSYCH: Alert and oriented with appropriate mood and affect Procedure Note: Flexible Nasolaryngoscopy Verbal informed consent was obtained from the patient/patient's guardian. 4% lidocaine mixed with phenylephrine was prepared and dripped into the nose. It was placed in the bilateral naris. Followingan appropriate amount of time to allow for adequate anesthesia, a flexible fiberoptic nasolaryngoscope was placed into the patient's bilateral naris. The nasal cavity, nasopharynx, oropharynx, hypopharynx, and all endolaryngeal structures were visualized and were normal except as listed below. Significant findings included: -Mass filling the nasopharynx bilaterally, very minimal extension into the posterior nasal cavity on the left -Normal upper aerodigestive tract below the mass with normal true vocal cord movement Last Recorded Vitals Height 1.588 m (5' 2.5), weight 94.4 kg (208 lb 1.6 oz). Relevant Results Reviewed report from recent CT sinus Assessment and Plan 78 y.o. female with nasopharyngeal mass concerning for malignancy. We discussed different types of cancer including carcinoma and lymphoma. We also discussed that management depends on pathology and we will need to get a biopsy. Based on the appearance lymphoma is certainly a consideration. We willrequest her outside imaging. We will also get a CT scan of the neck with contrast to fully assess the lymph node burden. After we get a diagnosis she may require additional imaging. All questions were answered Valdemar Guardado MD documented in this [facility] Work Phone: [phone] 995-130904-11-2024 Discharge summary Author Gabriel Moss [facility] January 09, 2024 4:26pm Note Date/Time January 09, 2024 4:2 6pm [facility] Physical Therapy [facility] [address] [place] [address]. [address] [place] [address] / REHABILITATION SERVICES DISCHARGE SUMMARY MR#: [id number] Acct: [id number] Name: LETICIA HERRERA Rep #: [id number] : 1945 78 From: Gabriel Moss PT, ATC Referring Dr.: Dr. Tarik Roque MD Status: REG RCR Insurance: MEDICARE PART A B [employer] Discharge Summary D/C summary: It has been my pleasure to treat LETICIA HERRERA referred by Dr. Tarik Roque MD, with the diagnosis of L hip pain for a total of 12 visit(s). Discharge Date: Please see the following information for a summary of their discharge status. Subjective Subjective: I feel great. No pain today Pain L RON 6 years ago: Pain Intensity (Out of 10): 0 Overall Improvement % Improvement: 100 Objective Objective/Function: L hip pain is 0/10 No pain with sit to stand transfers MMT: L hip flex= 20, abd= 41, add= 40 #F; L knee flex= 32, ext= 43 #F TU.25 sec Pt is I with HEP Goals Goal 1:: Increase L hip and knee strength x 5 #F to aid with stair negotiation Goal Progress: Progressing Goal 2:: Decrease L hip pain x 50% to aid with sit to stand tolerance Goal Progress: Goal Met Goal 3:: Perform TUG test in under 8 sec to aid with safe community ambulation Goal Progress: Goal Met Goal 4:: I with HEP Goal Progress: Goal Met Plan Plan: Discharge D/C Information d/c sentence: If there are questions or concerns regarding this patient's physical therapy, please feel free to call me at [phone]. Thank you for the referral of thispatient. Sincerely, Gabriel Moss, PT, ATC Balance/Gait/Functional tests Balance/Special Test Scores Lower Extremity Functional Score: 54 Improvement % Improvement: 100 <Electronically signed by Gabriel Moss PT, ATC> 01/09/24 1626 CC: METEOROLOGICAL AIDELuisito Harrison; Dr. Tarik Roque MD ~ [facility] Signed [facility] Work Phone: [phone] Evaluation note* Diagnosis Onset Date Resolution Status Essential (primary) hypertension chronic History of coronary artery stent placement April chronic Hyperlipidemia chronic [facility] Work Phone: Discharge summary Author Deangelo Andes [facility] November 21, 2023 6:20am Note Date/Time November 21, 2023 6:10am [facility] Medical Records Department [address] [place] [address] Emergency Department Summary 11/21/23 MR#: [id number] Acct: [id number] Name: LETICIA HERRERA Rep #:[id number] 1 : 1945 77 From: Deangelo Baldwin DO PCP: Dr. 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 She states that over the past week or so she has had increased nasal congestion and sinus pressure. She states that she has noticed over the last day or 2 that there is an abnormal sound present within her head/ear region. She states she does not know what this is from and secondary to this comes in for evaluation. She does state that she was recently on a 7-day course of doxycycline secondary to UTI and just finished yesterday [facility] Medical History Atherosclerosis of coronary artery of atka heart without angina pectoris Essential (primary) hypertension GERD (gastroesophageal reflux disease) Hyperlipidemia Obesity Type 2 diabetes mellitus Upper GI bleed Home Medications aspirin 81 mg chewable tablet 81 mg PO DAILY health maintenance 12/13/17 [History Last Taken 09/06/19 21:00] benazepril 20 mg tablet 20 mg PO DAILY blood pressure 12/13/17 [History Last Taken 09/06/19 21:00] rosuvastatin 5 mg tablet 5 mg PO QHS cholesterol 12/13/17 [History Last Taken 09/06/19 21:00] acetaminophen 500 mg tablet 1,000 mg PO Q8 PRN pain 12/18/17 [History Last Taken 09/06/19 15:00] insulin detemir U-100 100 unit/mL (3 mL) subcutaneous pen 40 unit subcut BREAKFAST diabetes 05/19/19 [History Last Taken 09/06/19 09:00] insulin detemir U-100 100 unit/mL (3 mL) subcutaneous pen 48 unit subcut QHS diabetes 05/19/19 [History Last Taken 09/06/19 21:00] paroxetine HCl 30 mg tablet 30 mg PO DAILY 01/26/20 [History Last Taken Unknown] clopidogrel 75 mg tablet (Plavix) 75 mg PO QDAY #90 tabs 01/02/22 [Rx Last Taken Unknown] famotidine 40 mg tablet (Pepcid) 40 mg PO DAILY #90 tabs 01/02/22 [Rx Last Taken Unknown] dicyclomine 10 mg capsule 10 mg PO BID 05/15/22 [History Last Taken Unknown] isosorbide dinitrate 10 mg tablet See Rx Instructions .Route .COMPLEX #270 tabs 03/13/23 [Rx Last Taken Unknown] metoprolol tartrate 25 mg tablet See Rx Instructions .Route .COMPLEX #180 TABLETS 05/29/23 [Rx Last Taken Unknown] ascorbate calcium (vitamin C) 500 mg tablet 500 mg PO DAILY 06/18/23 [History Last Taken Unknown] cholecalciferol (vitamin D3) 25 mcg (1,000 unit) capsule 25 mcg PO DAILY 06/18/23 [History Last Taken Unknown] mecobalamin (vitamin B12) 1,000 mcg chewable tablet 1,000 mcg PO DAILY 06/18/23 [History Last Taken Unknown] metformin 500 mg tablet,extended release 24 hr 500 mg PO BID diabetes 06/18/23 [History Last Taken Unknown] zinc acetate 50 mg (zinc) capsule 50 mg PO DAILY 06/18/23 [History Last Taken Unknown] azelastine 137 mcg (0.1 %) nasal spray aerosol 2 spray intranasal BID #30 mL 11/21/23 [Rx Last Taken Unknown] prednisone 20 mg tablet 20 mg PO DAILY 5 days #5 tabs 11/21/23 [Rx Last Taken Unknown] Allergy/AdvReac Type Severity Reaction Status Date / Time adhesive tape Allergy red, itchy Verified 11/21/23 05:29 atorvastatin [From Lipitor] Allergy myalgias Verified 11/21/23 05:29 Iodinated Contrast Media [CT] Allergy Shortness Verified 11/21/23 05:29 of breath Penicillins Allergy Rash Verified 11/21/23 05:29 pravastatin Allergy myalgias Verified 11/21/23 05:29 Family History Father COPD (chronic obstructive pulmonary disease) Myocardial infarction Mother Diabetes CAD (coronary artery disease) Hx CABG Alzheimers disease CVA (cerebral vascular accident) Brother H/O angioplasty Diabetes Brother CVA (cerebral vascular accident) Son Diabetes Surgical History H/O total hip arthroplasty History of bilateral hip replacements History of coronary artery stent placement (05/26/19) History of hysterectomy History of laminectomy History of left heart catheterization (12/07/11) History of total bilateral knee replacement Hx of appendectomy Social History Smoking Status: Never smoker alcohol intake: never substance use type: does not use diet: diabetic caffeine: Yes Type: coffee Number of servings: 3 what type of physical activity do you participate in: other details: PT frequency: 3-4 times per week duration: 30-45 minutes/day seatbelt use: always do you feel safe at home: Yes ROS ROS ED Constitutional Constitutional ED: Denies chills or fever(s) Eyes Eyes: Denies blurry vision or change in vision ENT ENT ED: Reports ear pain, rhinorrhea and sore throat Cardiovascular Cardiovascular: Denies chest pain Respiratory/Chest Respiratory/Chest: Reports cough; Denies dyspnea Gastrointestinal Gastrointestinal: Denies abdominal pain, diarrhea, nausea or vomiting Genitourinary Genitourinary ED: Denies dysuria Musculoskeletal Musculoskeletal: Denies myalgias or neck pain Integumentary Denies rash Neurologic Neurologic: Denies headache(s) Hematologic/Lymphatic Hematologic/Lymphatic: Reports easy bleeding and easy bruising EXAM Physical Exam Const Vital Signs: 11/21/23 05:26 Temperature 96.8 F L Temperature Source Temporal Pulse Rate 84 Respiratory Rate 14 Blood Pressure 185/81 H Blood Pressure Mean 115 Pulse Ox 97 Positive well nourished and well developed General Appearance ED: well developed; Negative for pallor HEENT Reports moist mucous membranes HEENT Narrative: Left canal and TM appear normal with tympanostomy tube in place Right canal is normal but the right TM is retracted consistent with eustachian tube dysfunction/pressure. No overt signs of infection or air-fluid levels noted No pain with palpation of either mastoid Nasal mucosa is hyperemic and boggy with enlarged inferior nasal turbinates right greater than left There is cobblestoning present in the posterior pharynx consistent with sinus drainage without airway edema or compromise. 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 She reported multiple days of increased nasal congestion and then hearing a abnormal sound within her right-sided ear/head. On exam she has increased congestion with enlarged turbinates leading to eustachian tube dysfunction which has led to retraction of her eardrum without infection. She does not have new neurologic deficits to suggest this is acute stroke there are no overt findings to suggest this is otitis media or otitis externa or malignant otitis externa and there is no pain on palpation over top of either mastoid to suggest acute mastoiditis. Therefore at this time as exam and history indicates this is most likely pressure related should be placed on a nasal spray and a 5-day course of steroid to reduce inflammation and pressure and if there is no improvement she can follow-up with her ENT to discuss need for a second tympanostomy tube History & Record Review Discussion w/independent historian: Patient Discharge Plan Triage Chief Complaint: Headache ED Provider: Deangelo Baldwin Dx/Rx/DC Orders Clinical Impression: Acute dysfunction of right eustachian tube, Insulin dependent diabetes mellitus, Essential (primary) hypertension, History of Dunn's palsy Instructions: Common Middle Ear Problems Prescriptions: New azelastine 137 mcg (0.1 %) aerosol,spray 2 spray intranasal BID Qty: 30 0RF Rx Instructions: administer into each nostril prednisone 20 mg tablet 20 mg PO DAILY 5 Days Qty: 5 0RF No Action paroxetine HCl 30 mg tablet 30 mg PO DAILY Patient Comments: take 1 tablet by mouth every morning metformin 500 mg tablet extended release 24 hr 500 mg PO BID Patient Comments: DIABETES dicyclomine 10 mg capsule 10 mg PO BID mecobalamin (vitamin B12) 1,000 mcg tablet,chewable 1,000 mcg PO DAILY ascorbate calcium (vitamin C) 500 mg tablet 500 mg PO DAILY cholecalciferol (vitamin D3) 25 mcg (1,000 unit) capsule 25 mcg PO DAILY zinc acetate 50 mg (zinc) capsule 50 mg PO DAILY insulin detemir U-100 100 unit/mL (3 mL) insulin pen 40 unit SC BREAKFAST Patient Comments: DIABETES acetaminophen 500 mg tablet 1,000 mg PO Q8 PRN (Reason: pain) Patient Comments: Pain insulin detemir U-100 100 unit/mL (3 mL) insulin pen 48 unit SC QHS Patient Comments: DIABETES aspirin 81 MG tablet,chewable 81 mg PO DAILY benazepril 20 MG tablet 20 mg PO DAILY Patient Comments: TAKE ONE TABLET BY MOUTH EVERY DAY rosuvastatin 5 MG tablet 5 mg PO QHS clopidogrel [Plavix] 75 mg tablet 75 mg PO QDAY Qty: 90 3RF famotidine [Pepcid] 40 mg tablet 40 mg PO DAILY Qty: 90 3RF isosorbide dinitrate 10 mg tablet See Rx Instructions .ROUTE .COMPLEX Qty: 270 3RF Dose Instruction: take 1 tablet by mouth three times a day for blood pressure Rx Instructions: take 1 tablet by mouth three times a day for blood pressure metoprolol tartrate 25 mg tablet See Rx Instructions .ROUTE .COMPLEX Qty: 180 3RF Dose Instruction: take 1 tablet by mouth twice a day for blood pressure Rx Instructions: take 1 tablet by mouth twice a day for blood pressure Primary Care Provider: Lisa Gamble Referrals: Gee David MD [Med Staff - Active Staff] - Lisa Gamble DO [Primary Care Provider] - Activity Restrictions/Additional Instructions: Your exam and symptoms are consistent with eustachian tube dysfunction secondaryto increased congestion in the nasal passages and sinuses. Use the nasal spray twice a day as directed and take the steroid for the next 5 days. As you were given steroids in the ER you may start your prescription on Saturday. If symptomspersist despite treatment you may need an other tympanostomy tube placed and therefore follow-up with your ENT for repeat evaluation and return to the ER should you have any further concerns. Disposition Disposition: Home, Self Care What to do if you have Problems For any increased pain, shortness of breath, bleeding, nausea or vomiting, chestpain, or any unexpected problems, contact your Primary Care Provider. Call [facility] ([phone]) or report to the closest Emergency Room. Call 911 if necessary. 11/21/23 0620 <Electronically signed by Deangelo Baldwin DO> Cosigner Signature (if applicable): CC: Dr. Lisa Gamble, DO ~ Signed [facility] Work Phone: Evaluation noteNo assessment information available [facility] Work Phone: Evaluation note* Diagnosis Nasopharyngeal mass Unspecified disease of pharynx documented in this encounter [facility] Work Phone: Evaluation note* Diagnosis Nasopharyngeal mass Unspecified disease of pharynx documented in this encounter [facility] Work Phone: Evaluation note* Diagnosis Nasopharyngeal mass- Primary Unspecified disease of pharynx HTN (hypertension) Unspecified essential hypertension Hyperlipidemia Other and unspecified hyperlipidemia CAD (coronary artery disease) Coronary atherosclerosis of unspecified type of vessel, atka or graft Stented coronary artery Postsurgical percutaneous transluminal coronary angioplasty status Diabetes mellitus, type 2 (Multi) Type II or unspecified type diabetes mellitus without mention of complication, not stated as uncontrolled Depression Depressive disorder, not elsewhere classified documented in this encounter [facility] Work Phone: History and physical note Author Chey Clark [facility] Note Date/Time December 30, 2024 12:4 2am [facility] Medical Records Department [address] [place] [id number] H&P Exam - Hospitalist 12/30/24 0007 MR#: [id number] Acct: [id number] Name: LETICIA HERRERA Rep #:[id number] : 1945 79 From: Chey Clark MD PCP: Dr. Lisa Gamble DO Status:ADM MARTIN Location: [facility] – [place] [id number] HPI - General General Date of Admission: 12/30/24 Date of Service: 12/30/24 Chief Complaint: Intractable L hip pain, debility. HPI Narrative The patient is a 79 y/o F w/ PMHx: CKD stage II per GFR trending, Anxiety and Depression, Morbid obesity, HTN, HLD, GERD w/ Hx prior GI bleed, Diabetes mellitus type II, Chronic anemia/Fe deficiency anemia, CAD s/p PCI 2018, ChronicL foot drop and BL LE neuropathy following with Neurology w/ recent 11/24/24 nerve conduction studies noted to be abnormal with evidence of predominantly axonal, sensorimotor, length dependent, peripheral polyneuropathy with active denervation with recommended follow-up neuromuscular ultrasound to confirm localization of left peroneal nerve entrapment, Osteoarthritis status post bilateral total hip replacement previously, Follicular lympoma grade 3A following with Dr. 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 04/15/2024 and 05/26/2024 with resolution of throat mass and neck nodes, follow-upPET/CT 05/19/2024 with no hypermetabolic activity with continued close observation with last evaluation 10/13/2024 who presents to the [facility] ED on 12/30/2024 with history of pain to the left hip and thigh worsening today which has been ongoing reporting that she has been more active and walking more over the last 48 hours with pain more sharp and stabbing worse with weightbearing andimproved with rest with chronic persistent paresthesias especially the left lower extremity with recent diagnosis of neuropathy but given ongoing persistentpain prompted ED evaluation. Currently in the ED she initially rates her pain at 8 of 10 in severity. In the ED they attempted to ambulate the patient with awalker and she was unable to do so. In the ED upon evaluation at rest post medication she denies pain but notes onset severe pain with movement attempts and any weight bearing attempts. She denies having had pain like this but less severe ongoing. She notes she has not had hip pain for nearly 5 years. Workup inthe ED included T98.2, heart 71, BP 152/66, respiratory rate 16, 95% on room air, plain film of the pelvis with status post bilateral hip arthroplasty with no acute fracture, plain film of the left femur with status post left hip arthroplasty with possible loosening with no acute fracture. In the ED patient ministered morphine 4 mg IM x 1. PFSH Medical History Foot drop Loss of hearing Wears hearing aid Wears glasses Wears contact lenses Wears dentures Cancer History of steroid therapy Arthritis High cholesterol Non-smoker History of stress test History of echocardiogram Cardiology follow-up encounter PONV (postoperative nausea and vomiting) Encounter for education Depression Upper GI bleed Atherosclerosis of coronary artery of atka heart without angina pectoris Obesity Essential (primary) hypertension GERD (gastroesophageal reflux disease) Type 2 diabetes mellitus Hyperlipidemia Home Medications ?Medication ?Instructions ?Recorded ?Last Taken ?Type aspirin 81 mg chewable tablet 81 mg PO DAILY health ma intenance 12/13/17 04/18/24 History benazepril 20 mg tablet 20 mg PO DAILY blood pressur e 12/13/17 09/06/19 21:00 History rosuvastatin 5 mg tablet 5 mg PO QHS cholesterol 11/2809/06/19 21:00 History acetaminophen 500 mg tablet 1,000 mg PO Q8 PRN pain 09/06/19 15:00 History paroxetine HCl 30 mg tablet 30 mg PO DAILY 01/26/20 History clopidogrel 75 mg tablet (Plavix) 75 mg PO QDAY #90 ta bs 01/02/22 04/18/24 Rx Held on 04/24/24. Instructions: Resume on 04/25/24. dicyclomine 10 mg capsule 10 mg PO BID 05/15/22 Unknow n History ascorbate calcium (vitamin C) 500 500 mg PO DAILY 05/31 06/22 Unknown History mg tablet mecobalamin (vitamin B12) 1,000 1,000 mcg PO DAILY Unknown History mcg chewable tablet metformin 500 mg tablet,extended 500 mg PO BID diabete s 06/18/23 Unknown History release 24 hr zinc acetate 50 mg (zinc) capsule 50 mg PO DAILY 06/18 Unknown History famotidine 40 mg tablet (Pepcid) 80 mg PO DAILY 04/24/24 History insulin glargine 100 unit/mL (3 10 unit subcut QPM 07/23 Unknown History mL) subcutaneous pen (Lantus Solostar U-100 Insulin) tramadol 50 mg tablet 50 mg PO Q6H PRN pain 3 days #5 04/24/24 Unknown Rx tabs isosorbide dinitrate 10 mg tablet See Rx Instructions .Route 05/14/24 Unknown Rx .COMPLEX #270 tabs metoprolol tartrate 25 mg tablet See Rx Instructions . Route 05/18/24 Unknown Rx .COMPLEX #180 TABLETS Allergy/AdvReac Type Severity Reaction Status Date / Time adhesive tape Allergy red, itchy Verified 12/29/24 20:13 atorvastatin (From Lipitor) Allergy myalgias Verified 12/29/24 20:13 Iodinated Contrast Media (CT) Allergy Shortness Verified 12/29/24 20:13 of breath Penicillins Allergy Rash Verified 12/29/24 20:13 pravastatin Allergy myalgias Verified 12/29/24 20:13 Family History Father COPD (chronic obstructive pulmonary disease) Myocardial infarction Mother Diabetes CAD (coronary artery disease) Hx CABG Alzheimers disease CVA (cerebral vascular accident) Brother H/O angioplasty Diabetes Brother CVA (cerebral vascular accident) Son Diabetes Surgical History History of cardiac catheterization History of coronary artery stent placement (05/26/19) History of left heart catheterization (12/07/11) Hx of appendectomy History of laminectomy History of bilateral hip replacements History of total bilateral knee replacement History of hysterectomy H/O total hip arthroplasty Social History household members: none Smoking Status: Never smoker alcohol intake: never substance use type: does not use diet: diabetic caffeine: Yes Type: coffee Number of servings: 3 what type of physical activity do you participate in: other details: PT frequency: 3-4 times per week duration: 30-45 minutes/day seatbelt use: always do you feel safe at home: Yes ROS ROS Narrative Admission Review of Systems: CONSTITUTIONAL: No weight loss, fever, chills, + weakness or fatigue. HEENT: Eyes: No visual loss, blurred vision, double vision or yellow sclerae. Ears, Nose, Throat: No hearing loss, sneezing, congestion, runny nose or sore throat. SKIN: No rash or itching, lesions, wounds. CARDIOVASCULAR: No chest pain, chest pressure or chest discomfort, edema, palpitations, orthopnea, syncopal events. RESPIRATORY: No shortness of breath, cough or sputum, wheezing, hemoptysis. GASTROINTESTINAL: No anorexia, nausea, vomiting or diarrhea, abdominal pain, melena, BRBPR. GENITOURINARY: No dysuria, frequency, urgency or retention. NEUROLOGICAL: No headache, dizziness, syncope, paralysis, ataxia, numbness or tingling in the extremities, focal weakness, change in bowel or bladder control,seizure. MUSCULOSKELETAL: + muscle, back pain, joint pain or stiffness. HEMATOLOGIC: + Chronic anemia, easy bleding/bruising. LYMPHATICS: No enlarged nodes. No history of splenectomy. PSYCHIATRIC: + history of anxiety and depression. ENDOCRINOLOGIC: No reports of sweating, cold or heat intolerance. No polyuria orpolydipsia. ALLERGIES: No history of asthma, hives, eczema or rhinitis. Vital Signs Vital Signs Vital Signs: 12/29/24 20:09 12/29/24 22:06 Temperature 98.2 F Temperature Source Oral Pulse Rate 71 70 Respiratory Rate 16 17 Blood Pressure 152/66 H 186/75 H Blood Pressure Mean 94 112 Pulse Ox 95 99 Oxygen Delivery Method Room Air Room Air Weight Weight: 218 lb 7.649 oz Body Mass Index (BMI) 39.9 Physical Exam Narrative Physical Examination: General: Awake, alert, oriented x 3 and cooperative, laying in the bed, fatigued, notes pain controlled currently without movement. Skin: Normal color, normal turgor, no icterus, no cyanosis. HEENT: AT/NC, EOMI, PERRLA, mildly dry MM, no carotid bruits or JVD noted. Lungs: Mildly diminished, greater bases, appropriate effort, no rales, ronchi orwheezing. Heart: Regular rate and rhythm; no gallop, rub audible. Abdomen: Soft, morbidly obese, NTTP, ND, on the hyperactive BS, no appreciated HSM. Extremities: No cyanosis, clubbing, or edema, mild discomfort over the anterior and lateral aspect of the left hip, able to rotate, no obvious sensation deficits. Neurological: Patient awake, alert, oriented as noted, cognitive function intact; pupils equally reactive to light and accommodation, cranial nerves grossly normal, moving all 4 extremities, no focal deficits, strength moderatelyto severely globally decreased given acute presentation, primarily pain onset tothe left hip with weightbearing attempts and some with palpation of the anteriorand lateral region. Psychiatric: Affect appears fatigued, no acute evidence of depressive or anxietyfeelings but does have underlying history. Results Imaging Radiology Impression Femur X-Ray 12/29/24 20:53 IMPRESSION: Status post left hip arthroplasty with suspected loosening. No acute fracture. Reading Location: [facility] Pelvis X-Ray 12/29/24 20:53 IMPRESSION: Status post bilateral hip arthroplasty. No acute fracture. [facility] Assessment & Plan Assessment/Plan (1) Hip pain, left: PLAN: Plan The patient is a 79 y/o F w/ PMHx: CKD stage II per GFR trending, Anxiety and Depression, Morbid obesity, HTN, HLD, GERD w/ Hx prior GI bleed, Diabetes mellitus type II, Chronic anemia/Fe deficiency anemia, CAD s/p PCI 2018, ChronicL foot drop and BL LE neuropathy following with Neurology w/ recent 11/24/24 abnormal LLE nerve conduction studies, Osteoarthritis status post bilateral total hip replacement previously, Hx Follicular lympoma grade 3A following with Dr. Campoverde who presents to the [facility] ED on 12/30/2024 with history of pain to the lefthip and thigh worsening today which has been ongoing reporting that she has beenmore active and walking more over the last 48 hours with pain more sharp and stabbing worse with weightbearing and improved with rest with chronic persistentparesthesias especially the left lower extremity with recent diagnosis of neuropathy. #1. Intractable left hip pain complicated by chronic neuropathy, debility, adult failure to thrive: Will admit to medical surgical floor, maintain on fall precautions, initiate low-dose gabapentin regimen, initiate oral/IV pain regimen, PT/OT/case management consulted for discharge planning, pending response may need to consider orthopedic surgery involvement given possible loosening device and certainly may require further CT imaging to further assess. #2. Chronic anemia/iron deficiency anemia: Admission CBC requested, baseline hemoglobin noted to be primarily 10-12, MCV normally normocytic, clarifying but on current list does not appear to be on iron supplementation any longer, will continue to trend. #3. Chronic Kidney Disease Stage II per GFR trending but is certainly vacillated: Admission BUN/Cr pending upon requested evaluation of patient but GFR has primarily been consistent with stage II, baseline renal function 0.6-0.8. #4. CAD: Status post PCI 2018, continue aspirin, Plavix, statin, benazepril, metoprolol home regimen. #5. Diabetes mellitus type II: Hold oral home regimen, continue home insulin regimen, ADA diet, accu checks w/ ISS. #6. Hypertension: Continue home regimen including metoprolol, isosorbide, benazepril, PRN hydralazine. #7. Hyperlipidemia: Continue patient home statin therapy. #8. Morbid Obesity: Weight loss and lifestyle changes encouraged. #9. Anxiety and depression: We will continue patient on paroxetine regimen. #10. GERD, history of previous GI bleed: Currently per list on famotidine only,will continue. Clarifying to be certain as dose is significantly elevated. 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 DVT prophylaxis: Lovenox. #13. CODE status: Patient MARY is her children present and living will is currently in place. Discussed CODE status at length including difference betweenFULL code, DNR-CCA and DNR-CC status. Following discussions about the differences in these status, requested DNR-CCA, no intubation which was clarified with examples. Advanced Care Planning Face to Face Time: 16 minutes. Charges/Coding Visit Charges Inpatient E&M: 64350 Init Hosp L2 Procedures Hospitalists Procedures: 99370 Advncd Care Plan 30 Min 12/30/24 0042 <Electronically signed by Chey Clark MD> Cosigner Signature (if applicable): CC: Dr. Chey Clark MD; Dr. Lisa Gamble DO~ Signed [facility] Work Phone: Hospital Discharge instructions Additional Instructions Your exam and symptoms are consistent with eustachian tube dysfunction secondary to increased congestion in the nasal passages and sinuses. Use the nasal spray twice a day as directed and take the steroid for the next 5 days. As you were given steroids in the ER you may start your prescription on Saturday. If symptoms persist despite treatment you may need an other tympanostomy tube placed and therefore follow-up with your ENT for repeat evaluation and return to the ER should you have any further concerns.[facility] Work Phone: Reason for referral (narrative)No reason for referral information availableWTrinity [facility] Work Phone: Chief Complaint and Reason for Visit Chief Complaint SP SCREENING Chief Complaint SP SCREENING R AXILLARY MASS Chief Complaint 1 Y FU Reason for Visit Essential (primary) hypertension History of coronary artery stent placement Hyperlipidemia Chief Complaint SCREENING Chief Complaint SCREENING PRE-OP ATHEROSCLEROTIC HEART DISEASE ATHEROSCLEROTIC HEART DISEASE Chief Complaint 1 Y FU ARTIFICIAL HIP. RX HERE Reason for Visit Essential (primary) hypertension History of coronary artery stent placement Hyperlipidemia Chief Complaint ARTIFICIAL HIP. RX H ERE swooshing sound in head Chief Complaint ARTIFICIAL HIP. RX H ERE swooshing sound in head SINUSITIS Chief Complaint Admit Date 1 y fu August 12, 2024 12:48pm 3MO LABS October 13, 2024 1 :06pm LYMPHOMA October 13, 2024 1 :15pm BLE; FT DROP November 24, 2024 6:43am BLE; FT DROP November 24, 2024 8:32am Reason for Visit Admit Date Essential (primary) hypertension Novembe r 2023 12:48pm History of coronary artery stent placeme nt August 12, 2024 12:48pm Hyperlipidemia August 12, 2024 12:48pm Follicular lymphoma grade 3a September 1:06pm Chief Complaint Admit Date 3MO LABS October 13, 2024 1 :06pm BLE; FT DROP November 24, 2024 6:43am BLE; FT DROP November 24, 2024 8:32am LYMPHOMA December 08, 2024 2:0 0pm INTRACTABLE L HIP PAIN, ADULT FTT December 30, 2024 12:13am Reason for Visit Admit Date Follicular lymphoma grade 3a September 1:06pm Hip pain, left December 30, 2024 12:1 3am Chief Complaint Admit Date BLE; FT DROP November 24, 2024 6:43am BLE; FT DROP November 24, 2024 8:32am INTRACTABLE L HIP PAIN, ADULT FTT December 30, 2024 12:13am INTRACTABLE L HIP PAIN, ADULT FTT December 31, 2024 1:27pm INTRACTABLE L HIP PAIN, ADULT FTT December 31, 2024 1:53pm INTRACTABLE L HIP PAIN, ADULT FTT December 31, 2024 3:43pm INTRACTABLE L HIP PAIN, ADULT FTT January 01, 2025 2:09pm INTRACTABLE L HIP PAIN, ADULT FTT January 01, 2025 2:29pm INTRACTABLE L HIP PAIN, ADULT FTT January 02, 2025 1:31pm INTRACTABLE L HIP PAIN, ADULT FTT January 03, 2025 12:44pm INTRACTABLE L HIP PAIN, ADULT FTT January 04, 2025 5:17pm INTRACTABLE L HIP PAIN, ADULT FTT January 05, 2025 12:58pm LYMPHOMA February 09, 2025 2:30p m ACUTE-SWOLLEN AREA UNDER BREAST January 1:48pm Reason for Visit Admit Date Hip pain, left December 31, 2024 3:43 pm 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 Ap ril 2024 3:43pm Chief Complaint Admit Date BLE; FT DROP November 24, 2024 6:43am BLE; FT DROP November 24, 2024 8:32am INTRACTABLE L HIP PAIN, ADULT FTT December 30, 2024 12:13am INTRACTABLE L HIP PAIN, ADULT FTT December 31, 2024 1:27pm INTRACTABLE L HIP PAIN, ADULT FTT December 31, 2024 1:53pm INTRACTABLE L HIP PAIN, ADULT FTT December 31, 2024 3:43pm INTRACTABLE L HIP PAIN, ADULT FTT January 01, 2025 2:09pm INTRACTABLE L HIP PAIN, ADULT FTT January 01, 2025 2:29pm INTRACTABLE L HIP PAIN, ADULT FTT January 02, 2025 1:31pm INTRACTABLE L HIP PAIN, ADULT FTT January 03, 2025 12:44pm INTRACTABLE L HIP PAIN, ADULT FTT January 04, 2025 5:17pm INTRACTABLE L HIP PAIN, ADULT FTT January 05, 2025 12:58pm ACUTE-SWOLLEN AREA UNDER BREAST January 1:48pm LYMPHOMA February 24, 2025 3:00p m Follicular lymphoma grade IIIa, lymph no chloé of mul February 24, 2025 3:18pm 1DAY REVIEW CT LABS PRIOR February 25, 2025 3:43pm Reason for Visit Admit Date Hip pain, left December 31, 2024 3:43 pm 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 Ap ril 2024 3:43pm Follicular lymphoma grade 3a February 24, 2 025 1:48pm Follicular lymphoma grade 3a February 25, 2 025 3:43pm Chief Complaint Admit Date BLE; FT DROP November 24, 2024 6:43am BLE; FT DROP November 24, 2024 8:32am INTRACTABLE L HIP PAIN, ADULT FTT December 30, 2024 12:13am INTRACTABLE L HIP PAIN, ADULT FTT December 31, 2024 1:27pm INTRACTABLE L HIP PAIN, ADULT FTT December 31, 2024 1:53pm INTRACTABLE L HIP PAIN, ADULT FTT December 31, 2024 3:43pm INTRACTABLE L HIP PAIN, ADULT FTT January 01, 2025 2:09pm INTRACTABLE L HIP PAIN, ADULT FTT January 01, 2025 2:29pm INTRACTABLE L HIP PAIN, ADULT FTT January 02, 2025 1:31pm INTRACTABLE L HIP PAIN, ADULT FTT January 03, 2025 12:44pm INTRACTABLE L HIP PAIN, ADULT FTT January 04, 2025 5:17pm INTRACTABLE L HIP PAIN, ADULT FTT January 05, 2025 12:58pm ACUTE-SWOLLEN AREA UNDER BREAST January 1:48pm LYMPHOMA February 24, 2025 3:00p m Follicular lymphoma grade IIIa, lymph no chloé of mul February 24, 2025 3:18pm 1DAY REVIEW CT LABS PRIOR February 25, 2025 3:43pm SCREENING March 10, 2025 1:14 pm Chief Complaint Admit Date ACUTE-SWOLLEN AREA UNDER BREAST January 1:48pm Follicular lymphoma grade IIIa, lymph no chloé of mul February 24, 2025 3:18pm 1DAY REVIEW CT LABS PRIOR February 25, 2025 3:43pm SCREENING March 10, 2025 1:14 pm LYMPHOMA May 04, 2025 2:0 0pm Reason for Visit Admit Date Follicular lymphoma grade 3a February 24, 2 025 1:48pm Follicular lymphoma grade 3a February 25, 2 025 3:43pm Family History No Family History Records Found Relationship Condition Age at Onset Recorded Date/T trina father Chronic obstructive pulmonary disease Unk nown Myocardial infarction Unknown mother Diabetes mellitus Unknown Coronary artery disease Unknown Alzheimer's disease Unknown Cerebrovascular accident (CVA) Unknown brother History of angioplasty Unknown Diabetes mellitus Unknown brother Cerebrovascular accident (CVA) Unknown son Diabetes mellitus Unknown Advance Directives No Advanced Directives Records Found Advance Directive Response Recorded Date/ Time Advance Directives Yes May 26, 2019 7:08am Living Will No October 09 10:35am Power of Fruit Farmer No October 09, 2020 10:35am Advance Directive Response Recorded Date/ Time Advance Directives Yes May 26, 2019 6:08am Living Will No October 09 9:35am Power of Fruit Farmer No October 09, 2020 9:35am Advance Directive Response Recorded Date/ Time Advance Directives Yes May 26, 2019 6:08am Living Will No November 21 5:28am Power of Fruit Farmer No November 21, 2023 5:28am Advance Directive Response Recorded Date/ Time Advance Directives Yes May 26, 2019 7:08am Living Will No November 21 6:28am Power of Fruit Farmer No November 21, 2023 6:28am Documents on File 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 Yes May 27, 2024 11:06am Advance Directives on File Yes [facility] t 2023 11:06am Name of Medical Power of Fruit Farmer Tj Herrera May 27, 2024 11:06am Advance Directives Yes May 27, 2024 11:06am Living Will Yes 2024 8:13pm Do you have a Healthcare Power of Fruit Farmer? Yes 2024 8:13pm Name of Medical Power of Fruit Farmer Tj Herrera 2024 8:13pm Advance Directive Response Recorded Date/ Time Advance Directives on File Yes [facility] t 2023 11:06am Living Will Yes May 27 11:06am Do you have a Healthcare Power of Fruit Farmer? Yes May 27, 2024 11:06am Name of Medical Power of Fruit Farmer Tj Herrera May 27, 2024 11:06am Advance Directives Yes May 27, 2024 11:06am Living Will Yes December 30, 2024 1:33am Do you have a Healthcare Power of Fruit Farmer? Yes December 30, 2024 1:33am Name of Medical Power of Fruit Farmer Tj Herrera December 30, 2024 1:33am Advance Directive Response Recorded Date/ Time Advance Directives on File Yes Ej t 2023 11:06am Living Will Yes May 27 11:06am Do you have a Healthcare Power of Fruit Farmer? Yes May 27, 2024 11:06am Name of Medical Power of Fruit Farmer Tj Herrera May 27, 2024 11:06am Advance Directives Yes May 27, 2024 11:06am Reason for Referral Specialty Diagnoses / Procedures Referred By Deana fleming Referred To Contact Radiology Diagnoses Nasopharyngeal mass Procedures CT soft tissue [place] [address] [address] Department [place] [address] Referral ID Status Reason Start Date Expiration Date Visits Requested Visits Authorized [id number] Pending Review Perform Procedure 02/27/2024 02/26/2025 1 1 Summary Purpose Additional Source Comments Goals (unrecognized section and content) Goals may be documented in a n alternate sectionGoals may be documented in an alternate sectionGoals may be documented in an alternate sectionGoals may be documented in an alternate sectionGoals may be documented in an alternate sectionGoals may be documented in an alternate sectionGoals may be documented in an alternate sectionGoals may be documented in an alternate sectionGoals may be documented in an alternate sectionGoals may be documented in an alternate sectionGoals may be documented in an alternate sectionGoals may be documented in an alternate sectionGoals may be documented in an alternate sectionGoals may be documented in an alternate sectionGoals may be documented in an alternate section Care Teams (unrecognized sec tion and content) Team Status: Active Member Role Status Dates Dr. Lisa Gamble , DO Family Provider Active Dr. Lisa Gamble , DO Primary Care Provider Active Team Status: Inactive Member Role Status Dates Dr. Lisa Gamble DO Primary Care Provide r, Attending Provider, Referring Provider Active Team Status: Active Member Role Status Dates Dr. Lisa Gamble DO Primary Care Provider Active Rosanne Ovalle METEOROLOGICAL AIDE, METEOROLOGICAL AIDE-C Referring Provider, Other Provi sergio Active Dr. Richard Gutierrez MD Attending Provider Active Team Status: Inactive Member Role Status Dates Dr. Lisa Gamble DO Primary Care Provider Active Dr. Gee David MD Attending Provider, Referring Pr ovider Active Team Status: Active Member Role Status Dates Dr. Lisa Gamble DO Primary Care Provider Active Rosanne Ovalle METEOROLOGICAL AIDE, METEOROLOGICAL AIDE-C Attending Provider, Referring P rovider Active Team Status: Inactive Member Role Status Dates Dr. Lisa Gamble DO Primary Care Provider Active Rosanne Ovalle METEOROLOGICAL AIDE, METEOROLOGICAL AIDE-C Attending Provider, Referring P rovider Active Team Status: Active Member Role Status Dates Dr. Lisa Gamble DO Family Provider Active Trinity Harrison , METEOROLOGICAL AIDE-C Primary Care Provider Active Team Status: Inactive Member Role Status Dates Dr. Lisa Gamble DO Primary Care Provider, Referring P rovider Active Arslan Alex METEOROLOGICAL AIDE, METEOROLOGICAL AIDE-C Attending Provider Active Team Status: Inactive Member Role Status Dates Trinity Harrison NP-C Primary Care Provider, Attending P rovider Active Team Status: Active Member Role Status Dates Trinity Harrison NP-C Primary Care Provider Active Dr. Tarik Roque MD Attending Provider Active Team Status: Inactive Member Role Status Dates Trinity Harrison METEOROLOGICAL AIDE-C Primary Care Provider Active Dr. Tarik Roque MD Attending Provider Active Team Status: Inactive Member Role Status Dates Dr. Lisa Gamble DO Primary Care Provider Active Dr. Deangelo Baldwin DO Emergency Provider Active Team Status: Inactive Member Role Status Dates Dr. Lisa Gamble DO Primary Care Provider Active Dr. Deangelo Baldwin DO Attending Provider, Emergency Pr ovider Active Foreclosure Clerk Relationship Specialty Start Date End Date Lisa Gamble DO [address] [facility] [place] [id number] PCP - General Family Medicine 03/10/24 Foreclosure Clerk Relationship Specialty Start Date End Date Frederic Laurent DO PCP - General Family Medicine 06/18/15 Team Status: Active Member Role Status Dates Dr. Lisa Gamble DO Primary Care Provider Active Team Status: Inactive Member Role Status Dates Dr. Lisa aGmble DO Primary Care Provider Active Start: August 12, 2024 End: August 12, 2024 Dr. Lisa Gamble DO Referring Provider Active St art: August 12, 2024 End: August 12, 2024 Arslan Alex METEOROLOGICAL AIDE, METEOROLOGICAL AIDE-C Attending Provider Active S tart: August 12, 2024 End: August 12, 2024 Team Status: Inactive Member Role Status Dates Dr. Lisa Gamble DO Primary Care Provider Active Start: October 13, 2024 End: October 13, 2024 Dr. Lisa Gamble DO Referring Provider Active St art: October 13, 2024 End: October 13, 2024 Dr. Edenilson Campoverde MD Attending Provider Active S tart: October 13, 2024 End: October 13, 2024 Team Status: Active Member Role Status Dates Dr. Lisa Gamble DO Primary Care Provider Active Start: October 13, 2024 Dr. Lisa Gamble DO Referring Provider Active St art: October 13, 2024 Dr. Edenilson Campoverde MD Attending Provider Active S tart: October 13, 2024 Team Status: Inactive Member Role Status Dates Dr. Lisa Gamble DO Primary Care Provider Active Start: November 24, 2024 End: November 24, 2024 Dr. Carol Ann Antunez DPM Attending Provider Active Start: November 24, 2024 End: November 24, 2024 Dr. Carol Ann Antunez DPM Referring Provider Active Start: November 24, 2024 End: November 24, 2024 Team Status: Active Member Role Status Dates Dr. Lisa Gamble DO Primary Care Provider Active Start: November 24, 2024 Dr. Carol Ann Antunez DPM Referring Provider Active Start: November 24, 2024 Dr. Carol Ann Antunez DPM Other Provider Active Star t: November 24, 2024 Dr. Polina Howard MD Attending Provider Active Start: November 24, 2024 Team Status: Active Member Role Status Dates Dr. Lisa Gamble DO Primary Care Provider Active Start: December 08, 2024 Dr. Lisa Gamble DO Referring Provider Active St art: December 08, 2024 Dr. Edenilson Campoverde MD Attending Provider Active S tart: December 08, 2024 Team Status: Active Member Role Status Dates Dr. Lisa Gamble DO Primary Care Provider Active Start: December 30, 2024 Dr. Enrique Morelos , DO Emergency Provider Active Start: December 30, 2024 Dr. Chey Clark MD Admit Provider Active St art: December 30, 2024 Dr. Chey Clark MD Attending Provider Active Start: December 30, 2024 Dr. Chey Clark MD Other Provider Active St art: December 30, 2024 Team Status: Active Member Role Status Dates Dr. Lisa Gamble DO Primary Care Provider Active Start: December 31, 2024 Dr. Enrique Morelos DO Emergency Provider Active Start: December 31, 2024 Dr. Chey Clark MD Admit Provider Active St art: December 31, 2024 Dr. Chey Clark MD Other Provider Active St art: December 31, 2024 Dr. Terrance Harrell MD Other Provider Active Sta rt: December 31, 2024 Dr. Solis Meek MD Other Provider Active Sta rt: December 31, 2024 MAGALY Harmon Attending Provider Active S tart: December 31, 2024 Team Status: Active Member Role Status Dates Dr. Lisa Gamble DO Primary Care Provider Active Start: December 31, 2024 Dr. Enrique Morelos DO Emergency Provider Active Start: December 31, 2024 Dr. Chey Clark MD Admit Provider Active St art: December 31, 2024 Dr. Chey Clark MD Other Provider Active St art: December 31, 2024 Dr. Terrance Harrell MD Attending Provider Active Start: December 31, 2024 Dr. Terrance Harrell MD Other Provider Active Sta rt: December 31, 2024 Dr. Solis Meek MD Other Provider Active Sta rt: December 31, 2024 Team Status: Inactive Member Role Status Dates Dr. Lisa Gamble DO Primary Care Provider Active Start: December 31, 2024 End: January 05, 2025 Dr. Enrique Morelos , DO Emergency Provider Active Start: December 31, 2024 End: January 05, 2025 Dr. Chey Clark MD Admit Provider Active St art: December 31, 2024 End: January 05, 2025 Dr. Chey Clark MD Other Provider Active St art: December 31, 2024 End: January 05, 2025 Dr. Solis Meek MD Other Provider Active Sta rt: December 31, 2024 End: January 05, 2025 Dr. Henrique Holloway MD Other Provider Active Start: December 31, 2024 End: January 05, 2025 Dr. Rosy Nguyen MD Attending Provider Active Start: December 31, 2024 End: January 05, 2025 Dr. Terrance Harrell MD Other Provider Active Sta rt: December 31, 2024 End: January 05, 2025 Team Status: Active Member Role Status Dates Dr. Lisa Gamble , DO Primary Care Provider Active Start: January 01, 2025 Dr. Enrique Morelos , DO Emergency Provider Active Start: January 01, 2025 Dr. Chey Clark MD Admit Provider Active St art: January 01, 2025 Dr. Chey Clark MD Other Provider Active St art: January 01, 2025 Dr. Terrance Harrell MD Attending Provider Active Start: January 01, 2025 Dr. Terrance Harrell MD Other Provider Active Sta rt: January 01, 2025 Dr. Solis Meek MD Other Provider Active Sta rt: January 01, 2025 Team Status: Active Member Role Status Dates Dr. Lisa Gamble DO Primary Care Provider Active Start: January 01, 2025 Dr. Enrique Morelos , DO Emergency Provider Active Start: January 01, 2025 Dr. Chey Clark MD Admit Provider Active St art: January 01, 2025 Dr. Chey Clark MD Other Provider Active St art: January 01, 2025 Dr. Terrance Harrell MD Other Provider Active Sta rt: January 01, 2025 Dr. Solis Meek MD Other Provider Active Sta rt: January 01, 2025 MAGALY Harmon Attending Provider Active S tart: January 01, 2025 Team Status: Active Member Role Status Dates Dr. Lisa Gamble DO Primary Care Provider Active Start: January 02, 2025 Dr. Enrique Morelos , DO Emergency Provider Active Start: January 02, 2025 Dr. Chey Clark MD Admit Provider Active St art: January 02, 2025 Dr. Chey Clark MD Other Provider Active St art: January 02, 2025 Dr. Terrance Harrell MD Attending Provider Active Start: January 02, 2025 Dr. Terrance Harrell MD Other Provider Active Sta rt: January 02, 2025 Dr. Solis Meek MD Other Provider Active Sta rt: January 02, 2025 Team Status: Active Member Role Status Dates Dr. Lisa Gamble DO Primary Care Provider Active Start: January 03, 2025 Dr. Enrique Morelos DO Emergency Provider Active Start: January 03, 2025 Dr. Chey Clark MD Admit Provider Active St art: January 03, 2025 Dr. Chey Clark MD Other Provider Active St art: January 03, 2025 Dr. Terrance Harrell MD Attending Provider Active Start: January 03, 2025 Dr. Terrance Harrell MD Other Provider Active Sta rt: January 03, 2025 Dr. Solis Meek MD Other Provider Active Sta rt: January 03, 2025 Dr. Henrique Holloway MD Other Provider Active Start: January 03, 2025 Team Status: Active Member Role Status Dates Dr. Lisa Gamble DO Primary Care Provider Active Start: January 04, 2025 Dr. Enrique Morelos DO Emergency Provider Active Start: January 04, 2025 Dr. Chey Clark MD Admit Provider Active St art: January 04, 2025 Dr. Chey Clark MD Other Provider Active St art: January 04, 2025 Dr. Solis Meek MD Other Provider Active Sta rt: January 04, 2025 Dr. Henrique Holloway MD Other Provider Active Start: January 04, 2025 Dr. Rosy Nguyen MD Attending Provider Active Start: January 04, 2025 Dr. Rosy Nguyen MD Other Provider Active Star t: January 04, 2025 Dr. Terrance Harrell MD Other Provider Active Sta rt: January 04, 2025 Team Status: Active Member Role Status Dates Dr. Lisa Gamble DO Primary Care Provider Active Start: January 05, 2025 Dr. Enrique Morelos DO Emergency Provider Active Start: January 05, 2025 Dr. Chey Clark MD Admit Provider Active St art: January 05, 2025 Dr. Chey Clark MD Other Provider Active St art: January 05, 2025 Dr. Solis Meek MD Other Provider Active Sta rt: January 05, 2025 Dr. Henrique Holloway MD Other Provider Active Start: January 05, 2025 Dr. Rosy Nguyen MD Attending Provider Active Start: January 05, 2025 Dr. Rosy Nguyen MD Other Provider Active Star t: January 05, 2025 Dr. Terrance Harrell MD Other Provider Active Sta rt: January 05, 2025 Team Status: Active Member Role Status Dates Dr. Lisa Gamble DO Primary Care Provider Active Start: February 09, 2025 Dr. Lisa Gamble DO Referring Provider Active St art: February 09, 2025 Dr. Edenilson Campoverde MD Attending Provider Active S tart: February 09, 2025 Team Status: Inactive Member Role Status Dates Dr. Lisa Gamble DO Primary Care Provider Active Start: February 24, 2025 End: February 24, 2025 Dr. Lisa Gamble DO Referring Provider Active St art: February 24, 2025 End: February 24, 2025 Gladys English METEOROLOGICAL AIDE, METEOROLOGICAL AIDE-C Attending Provider Active Start: February 24, 2025 End: February 24, 2025 Team Status: Active Member Role Status Dates Dr. Lisa Gamble DO Primary Care Provider Active Start: February 24, 2025 Dr. Lisa Gamble DO Referring Provider Active St art: February 24, 2025 Dr. Edenilson Campoverde MD Attending Provider Active S tart: February 24, 2025 Team Status: Active Member Role Status Dates Dr. Lisa Gamble DO Primary Care Provider Active Start: February 24, 2025 Gladys English METEOROLOGICAL AIDE, METEOROLOGICAL AIDE-C Attending Provider Active Start: February 24, 2025 Gladys English METEOROLOGICAL AIDE, METEOROLOGICAL AIDE-C Referring Provider Active Start: February 24, 2025 Team Status: Inactive Member Role Status Dates Dr. Lisa Gamble DO Primary Care Provider Active Start: February 25, 2025 End: February 25, 2025 Dr. Lisa Gamble DO Referring Provider Active St art: February 25, 2025 End: February 25, 2025 Dr. Edenilson Campoverde MD Attending Provider Active S tart: February 25, 2025 End: February 25, 2025 Team Status: Inactive Member Role Status Dates Dr. Lisa Gamble DO Primary Care Provider Active Start: February 24, 2025 End: February 24, 2025 Gladys English METEOROLOGICAL AIDE, METEOROLOGICAL AIDE-C Attending Provider Active Start: February 24, 2025 End: February 24, 2025 Gladys English METEOROLOGICAL AIDE, METEOROLOGICAL AIDE-C Referring Provider Active Start: February 24, 2025 End: February 24, 2025 Team Status: Inactive Member Role Status Dates Dr. Lisa Gamble DO Primary Care Provider Active Start: March 10, 2025 End: March 10, 2025 Dr. Lisa Gamble DO Attending Provider Active St art: March 10, 2025 End: March 10, 2025 Dr. Lisa Gamble DO Referring Provider Active St art: March 10, 2025 End: March 10, 2025 Team Status: Active Member Role/Relationship Status Dates Dr. Lisa Gamble DO Primary Care Provider Active Team Status: Inactive Member Role/Relationship Status Dates Dr. Lisa Gamble DO Primary Care Provider Active Start: February 24, 2025 End: February 24, 2025 Dr. Lisa Gamble DO Referring Provider Active St art: February 24, 2025 End: February 24, 2025 Gladys English METEOROLOGICAL AIDE, METEOROLOGICAL AIDE-C Attending Provider Active Start: February 24, 2025 End: February 24, 2025 Team Status: Inactive Member Role/Relationship Status Dates Dr. Lisa Gamble DO Primary Care Provider Active Start: February 24, 2025 End: February 24, 2025 Gladys English METEOROLOGICAL AIDE, METEOROLOGICAL AIDE-C Attending Provider Active Start: February 24, 2025 End: February 24, 2025 Gladys English METEOROLOGICAL AIDE, METEOROLOGICAL AIDE-C Referring Provider Active Start: February 24, 2025 End: February 24, 2025 Team Status: Inactive Member Role/Relationship Status Dates Dr. Lisa Gamble DO Primary Care Provider Active Start: February 25, 2025 End: February 25, 2025 Dr. Lisa Gamble DO Referring Provider Active St art: February 25, 2025 End: February 25, 2025 Dr. Edenilson Campoverde MD Attending Provider Active S tart: February 25, 2025 End: February 25, 2025 Team Status: Inactive Member Role/Relationship Status Dates Dr. Lisa Gamble DO Primary Care Provider Active Start: March 10, 2025 End: March 10, 2025 Dr. Lisa Gamble DO Attending Provider Active St art: March 10, 2025 End: March 10, 2025 Dr. Lisa Gamble DO Referring Provider Active St art: March 10, 2025 End: March 10, 2025 Team Status: Active Member Role/Relationship Status Dates Dr. Lisa Gamble DO Primary Care Provider Active Start: May 04, 2025 Dr. Lisa Gamble DO Referring Provider Active St art: May 04, 2025 Dr. Edenilson Campoverde MD Attending Provider Active S tart: May 04, 2025 Team Status: Inactive Member Role/Relationship Status Dates Dr. Lisa Gamble DO Primary Care Provider Active Start: May 25, 2025 End: May 25, 2025 Dr. Lisa Gamble DO Attending Provider Active St art: May 25, 2025 End: May 25, 2025 Reason for Visit (unrecogniz ed section and content) Reason Comments New Patient Visit Specialty Diagnoses / Procedures Referred By Deana fleming Referred To Contact Radiology Diagnoses Nasopharyngeal mass Procedures CT soft tissue [place] [id number] [facility] Department [place] [address] Referral ID Status Reason Start Date Expiration Date Visits Requested Visits Authorized [id number] Pending Review Perform Procedure 02/27/2024 02/26/2025 1 1 INFORMATION SOURCE (unrecogn ized section and content) DATE CREATED AUTHOR 03/03/2024 [facility] DATE CREATED AUTHOR AUTHOR'S ORGANIZ ATION 04/03/2024 [facility] DATE CREATED AUTHOR AUTHOR'S ORGANIZ ATION 04/17/2024 [facility] DATE CREATED AUTHOR AUTHOR'S ORGANIZ ATION 06/22/2025 [facility] Scheduled Active and Recently Administ ered Medications (unrecognized section and content) Medication Order 03/15/2024 03/16/2024 03/17/2024 lidocaine (Xylocaine) 10 mg/mL (1 %) injection 1 mg 1 mg (0.1 mL), subcutaneous, Once, On Sat03/17/24 at 1400, For 1 dose, Recovery (only), To be used for IV insertion ONLY 1400 (Due) oxygen (O2) therapy (COMPLETED) inhalation, Once, On Sat03/17/24 at 1400, For 1 dose, Recovery (only), Device: Nasal Cannula, Rate in liters per minute: Other, Custom Value: 1-6 LPM, Keep O2 Sat Above: 92% 1355 (Start - Provid er: Susan Hickey RN) Continuous Medication Order 03/15/2024 03/16/2024 03/17/2024 lactated Ringer's infusion 50 mL/hr, intravenous, Continuous, Starting on Sat03/17/24 at 1400, Recovery (only) 1400 (Continued from OR - Provider: Susan Hickey RN) PRN Medication Order 03/15/2024 03/16/2024 03/17/2024 acetaminophen (Tylenol) tablet 650 mg 650 mg, oral, Every 4 hours PRN, pain mild (1-3), first line, Starting on Sat03/17/24 at 1343, Recovery (only), When able to take oral medications., If ordered PRN for pain, nurse is permitted to administer this medication for higher pain scores based on patient preference? Yes HYDROmorphone (Dilaudid) injection 0.2 mg 0.2 mg, intravenous, Every 5 min PRN, pain moderate (4-6), first line, Starting on Sat03/17/24 at 1343, For 5 doses, Recovery (only), Max total of 4 mg regardless of dose. HYDROmorphone (Dilaudid) injection 0.5 mg 0.5 mg, intravenous, Every 5 min PRN, pain severe (7-10), first line, Starting on Sat03/17/24 at 1343, For 2 doses, Recovery (only), Max total of 4 mg regardless of dose. labetaloL (Normodyne,Trandate) injection 10 mg (COMPLETED) 10 mg, intravenous, Administer over 1 Minutes, Once as needed, systolic blood pressure greater than 180 mmHg, dystolic blood pressure greater than 100 mmHg and heart rate greater than 60 BPM, Starting on Sat03/17/24 at 1433, For 1 dose, Recovery (only), Give at rate of 10 mg/min. 1433 (Given - Provid er: Susan Hickey RN) labetaloL (Normodyne,Trandate) injection 20 mg (COMPLETED) 20 mg, intravenous, Administer over 1 Minutes, Once as needed, SBP > 175, Starting on Sat03/17/24 at 1500, For 1 dose, Recovery (only), Give at rate of 10 mg/min. 1500 (Given - Provid er: Susan Hickey RN) ondansetron (Zofran) injection 4 mg 4 mg, intravenous, Once as needed, nausea/vomiting, first line, Starting on Sat03/17/24 at 1343, For 1 dose, Recovery (only), When administering via IV Push, administer over 3-5 minutes. oxyCODONE (Roxicodone) immediate release tablet 5 mg 5 mg, oral, Every 4 hours PRN, pain moderate (4-6), second line, Starting on Sat03/17/24 at 1343, Recovery (only), When able to take oral medications., If ordered PRN for pain, nurse is permitted to administer this medication for higher pain scores based on patient preference? Yes oxymetazoline (Afrin) 0.05 % nasal spray (CANCELED) As needed, Starting on Sat03/17/24 at 1244, Intraprocedure 1244 (Given - Provid er: Valdemar Guardado MD - Comment: Soaked on Cottonoids) promethazine (Phenergan) 6.25 mg in sodium chloride 0.9% 50 mL IV 6.25 mg, intravenous, Administer over 15 Minutes, Once as needed, Nausea/vomiting, second line, Starting on Sat03/17/24 at 1343, For 1 dose, Recovery (only) sodium chloride 0.9 % irrigation solution (CANCELED) As needed, Starting on Sat03/17/24 at 1245, Intraprocedure 1245 (Given - Provid er: Valdemar Guardado MD) Source Comments (unrecognize d section and content) In the event this informatio n is protected by the Federal Confidentiality of Alcohol and Drug Abuse Patient Records regulations: The Federal rules restrict any use of the information to criminally investigate or prosecute any alcohol or drug abuse patient.[facility] FOR RECORDS PERTAINING TO PATIENTS WHO ARE OR HAVE BEEN ENROLLED IN A CHEMICAL DEPENDENCY/SUBSTANCEABUSE PROGRAM, SOME INFORMATION MAY BE OMITTED. This clinical summary was aggregated from multiple sources. Caution should be exercised in using it in the provision of clinical care. This summary normalizes information from multiple sources, and as a consequence, information in this document may materially change the coding, format and clinical context of patient data. In addition, data may be omitted in some cases. CLINICAL DECISIONS SHOULD BE BASED ON THE PRIMARY CLINICAL RECORDS. [facility]. provides no warranty or guarantee of the accuracy or completeness of information in this document.
== END | disposition home or self-care (01) ==
LOC: OPMRI 07:08
PROVIDERS: PCP Family Medicine; Referring Provider Student in an Organized Health Care Education/Training Program; Visit Provider Student in an Organized Health Care Education/Training Program
DX: M51.362 Other intervertebral disc degeneration, lumbar region with discogenic back pain and lower extremity pain (principal); M48.062 Spinal stenosis, lumbar region with neurogenic claudication; Z98.890 Other specified postprocedural states
CPT/HCPCS: 72158; A9575

== ENCOUNTER → 2025-07-01 | Outpatient (CLI) | payer MEDICARE, OTHER, SELFPAY ==
[2019-05-26 10:53] VITALS: BMI 38.9
--- NOTE | 2025-07-01 13:50 | US_ITS ---
PROCEDURE: BREAST LIMITED UNILATERAL N/A REASON FOR EXAM: F, Age 79 y/o , LEFT BREAST PAIN COMPARISON: Mammogram from 03/10/2025. TECHNIQUE: Procedure Code: USBRSTLIMIT Modality: US Procedure: BREAST LIMITED UNILATERAL FINDINGS: Sonographic evaluation of the left breast at 3 o'clock, 12 cm from the nipple shows a simple anechoic subcutaneous cyst measuring 0.7 x 0.5 x 0.6 cm. There is no vascularity identified. No associated architectural distortion US/Breast Limited Unilateral IMPRESSION: Benign subcutaneous cyst without vascularity or associated distortion. Patient should return for mammogram in 1 year BI-RADS 2: BENIGN RECOMMENDATION: Routine annual follow-up in 1 Year Reading Location: [id number]
--- NOTE | 2025-07-01 13:50 | US_ITS ---
PROCEDURE: BREAST LIMITED UNILATERAL N/A REASON FOR EXAM: F, Age 79 y/o , LEFT BREAST PAIN COMPARISON: Mammogram from 03/10/2025. TECHNIQUE: Procedure Code: USBRSTLIMIT Modality: US Procedure: BREAST LIMITED UNILATERAL FINDINGS: Sonographic evaluation of the left breast at 3 o'clock, 12 cm from the nipple shows a simple anechoic subcutaneous cyst measuring 0.7 x 0.5 x 0.6 cm. There is no vascularity identified. No associated architectural distortion US/Breast Limited Unilateral IMPRESSION: Benign subcutaneous cyst without vascularity or associated distortion. Patient should return for mammogram in 1 year BI-RADS 2: BENIGN RECOMMENDATION: Routine annual follow-up in 1 Year Reading Location: [id number]
== END | disposition home or self-care (01) ==
LOC: OPBI 13:48
PROVIDERS: PCP Family Medicine; Referring Provider Nurse Practitioner Family; Visit Provider Nurse Practitioner Family
DX: N64.4 Mastodynia (principal)
CPT/HCPCS: 76642

== ENCOUNTER → 2025-07-06 | Outpatient (CLI) | payer MEDICARE, OTHER, SELFPAY ==
[2019-05-26 10:53] VITALS: BMI 38.9
--- NOTE | 2025-07-06 07:59 | BD_ITS ---
PROCEDURE: DEXA BONE DENSITY STUDY 07/06/2025 REASON FOR EXAM: OSTEOPOROSIS F, age 79 y/o . Postmenopausal. TECHNIQUE: Procedure Code: BDDBD Modality: DX Procedure: DEXA BONE DENSITY STUDY COMPARISON: Prior study dated July 03, 2017. FINDINGS: BMD and T-SCORES Lumbar spine: 1.441 g/cm2, T-score 3.7 Levels: L1 through L4 Change from prior: Improvement of 7.8%. Right 1/3 radius: 0.619 g/cm2, T-score 0.7 The World Health Organization has defined the following categories based on bone density: Normal bone density: T-score equal to or greater than -1.0 Osteopenia: T-score between -1.0 and -2.5 Osteoporosis: T-score equal to or less than -2.5 The patient does not meet the pharmacological treatment recommendations for prevention of osteoporosis. BD/Dexa Bone Density Study IMPRESSION: NORMAL T-SCORES. Recommend follow-up as clinically warranted. Reading Location: [facility]
--- NOTE | 2025-07-06 07:59 | BD_ITS ---
PROCEDURE: DEXA BONE DENSITY STUDY 07/06/2025 REASON FOR EXAM: OSTEOPOROSIS F, age 79 y/o . Postmenopausal. TECHNIQUE: Procedure Code: BDDBD Modality: DX Procedure: DEXA BONE DENSITY STUDY COMPARISON: Prior study dated July 03, 2017. FINDINGS: BMD and T-SCORES Lumbar spine: 1.441 g/cm2, T-score 3.7 Levels: L1 through L4 Change from prior: Improvement of 7.8%. Right 1/3 radius: 0.619 g/cm2, T-score 0.7 The World Health Organization has defined the following categories based on bone density: Normal bone density: T-score equal to or greater than -1.0 Osteopenia: T-score between -1.0 and -2.5 Osteoporosis: T-score equal to or less than -2.5 The patient does not meet the pharmacological treatment recommendations for prevention of osteoporosis. BD/Dexa Bone Density Study IMPRESSION: NORMAL T-SCORES. Recommend follow-up as clinically warranted. Reading Location: [facility]
== END | disposition home or self-care (01) ==
LOC: OPBD 07:54
PROVIDERS: PCP Family Medicine; Referring Provider Student in an Organized Health Care Education/Training Program; Visit Provider Student in an Organized Health Care Education/Training Program
DX: M81.0 Age-related osteoporosis without current pathological fracture (principal); Z78.0 Asymptomatic menopausal state
CPT/HCPCS: 77080